=== PATIENT | female | born 1935 | race Caucasian/White ===

== ENCOUNTER 2021-01-04 17:31 | Inpatient (IN) | payer MEDICARE ==
[~2021-01-04] VITALS: Ht 157.5 cm; Wt 50.9 kg
[2021-01-04 18:20] LABS: BASO % 1 % (0-3); EOS # 0.1 x10^3/uL (0.0-0.7); EOS % 2 % (0-3); HEMATOCRIT 29.3 % (36.0-47.0); LYMPH # 0.7 x10^3/uL (1.0-4.8); LYMPH % 8 % (24-48); MEAN CORPUSCULAR HEMOGLOBIN 33 pg (25-35); MEAN CORPUSCULAR HGB CONC 34 g/dL (31-37); MEAN CORPUSCULAR VOLUME 97 fL (79-100); MONO % 12 % (0-9); NEUT # 6.8 x10^3uL (1.8-7.7); NEUT % 78 % (31-73); PLATELET COUNT 277 x10^3/uL (140-400); RED BLOOD COUNT 3.01 x10^6/uL (3.50-5.40); RED CELL DISTRIBUTION WIDTH 15.6 % (11.5-14.5); WHITE BLOOD COUNT 8.7 x10^3/uL (4.0-11.0)
[2021-01-04 18:26] LABS: ALBUMIN 3.2 g/dL (3.4-5.0); ALBUMIN/GLOBULIN RATIO 0.8 (1.0-1.7); CALCIUM 9.2 mg/dL (8.5-10.1); CREATININE 0.8 mg/dL (0.6-1.0); MAGNESIUM 1.9 mg/dL (1.8-2.4); TOTAL BILIRUBIN 1.3 mg/dL (0.2-1.0); TOTAL PROTEIN 7.3 g/dL (6.4-8.2)
[2021-01-04 18:41] LABS: BACTERIA,URINE 0 /HPF (0-FEW); BILIRUBIN,URINE NEG (NEG); CLARITY,URINE CLEAR; COLOR,URINE AMBER; GLUCOSE,URINE NEG (NEG); NITRITE,URINE NEG (NEG); RBC,URINE 0 /HPF (0-2); SQUAMOUS EPITHELIAL CELL,UR FEW /LPF; WBC,URINE RARE /HPF (0-4)
[2021-01-04] MEDS ORDERED: POTASSIUM CHLORIDE 20 MEQ TABLET.ER. PO ONE (19:00)
--- NOTE | 2021-01-04 19:07 | EKG ---
[address] [address] Test Date: 2021-01-04 Test Time: 18:15:47 Pat Name: GILLES LAIRD Department: Room: Gender: F Sample Card Maker: : 1935 Requested By: GERDA ROGERS Order Number: [id number] Reading MD: Measurements Intervals Reading Rate: 79 P: [place]: QRS: 16 QRSD: 88 T: 17 QT: 338 QTc: 389 Interpretive Statements IRREGULAR RHYTHM, NO P-WAVE FOUND T ABNORMALITY IN ANTEROLATERAL LEADS ABNORMAL ECG RI6.02 No previous ECG available for comparison
--- NOTE | 2021-01-04 19:10 | RAD ---
CT HEAD AND MAXILLOFACIAL WO, CT CERVICAL SPINE WO dated 01/04/2021 6:02 PM. Comparison: None. Clinical Indication: Reason: JOHAN/PSYCH CLEARANCE WITH FACIAL TRAUMA/BRUISING / Spl. Instructions: / History: PAIN Technical factors: Contiguous 5 mm axial images of the head were obtained from the skullbase to the v ertex. No contrast was administered. In addition, 3 mm axial images of the cervical spine and maxillo facial bones were acquired with thin cut coronal and sagittal reconstructions. One or more of the following individualized dose reduction techniques were utilized for this examinat ion: 1. Automated exposure control 2. Adjustment of the mA and/or kV according to patient size 3. Use of iterative reconstruction technique Findings head: Ventricles and sulci are mildly prominent for age. No midline shift or mass effect. There is mild pat roland low density in the deep/subcortical periventricular white matter. No hemorrhage or extra-axial co llection. Posterior fossa and brainstem unremarkable. Small scalp hematoma the right frontal bone No apparent calvarial abnormality. IMPRESSION HEAD: 1. No evidence of acute intracranial hemorrhage or mass. 2. Mild chronic small vessel ischemic changes and atrophy. 3. Right frontal scalp hematoma with no evidence of underlying fracture. Findings maxillofacial: There is mild preseptal soft tissue swelling on the right. Globes are symmetric. No post septal edema . Orbital noel and maxillary noel are intact. No displaced fracture. The zygomatic arches and adore ble are intact. No nasal bone fracture. Mild mucosal thickening of the bilateral ethmoid air cells. Maxillary, sphenoid and frontal sinuses a re clear. Mastoid air cells and middle ears are clear. No significant soft tissue abnormality. IMPRESSION MAXILLOFACIAL: 1. Preseptal soft tissue swelling over the right orbit with no evidence of underlying displaced facia l fracture. 2. Mild sinus disease. Findings cervical spine: Images were acquired from the skull base to T2. There is slight anterolisthesis of C3 on C4 and C4 on C5. Sagittal alignment is otherwise anatomic. Vertebral body heights are maintained. No prevertebral soft tissue swelling. Posterior elements are intact. Mild to moderate endplate hypertrophic changes throughout. There is moderate to severe disc space fernanda rowing at C4-C5, C5-C6 and C6-C7. Moderate multilevel uncovertebral spurring and facet arthropathy. T here is mild central canal narrowing at C5-C6 with multilevel mild to moderate foraminal narrowing. N o apparent focal disc herniation. Visualized soft tissue structures are unremarkable. Limited images of lung apices are clear. There is mild emphysema. There calcifications of the bilateral carotid bifurcation. IMPRESSION CERVICAL SPINE: 1. No evidence of fracture or malalignment. 2. Moderate multilevel cervical spondylosis. Electronically signed by: Israel Lainez MD (01/04/2021 7:08 PM) STEPHEN
[2021-01-04] MEDS ORDERED: RISP0.253 PO (19:29)
[2021-01-04] MEDS ORDERED: MELA5TAB20 PO (19:29)
[2021-01-04] MEDS ORDERED: LORA-254 PO (19:29)
[2021-01-04] MEDS ORDERED: RISP0.5T24 PO (19:29)
[2021-01-04] MEDS ORDERED: POLY2500 PO (19:29)
[2021-01-04] MEDS ORDERED: METO50TA6 PO (19:29)
[2021-01-04] MEDS ORDERED: ATOR10TA PO (19:29)
[2021-01-04] MEDS ORDERED: ACET500T68 PO (19:29)
[2021-01-04] MEDS ORDERED: FURO40TA4 PO (19:29)
[2021-01-04] MEDS ORDERED: POTA20TA4 PO (19:29)
[2021-01-04] MEDS ORDERED: LORA2ORA8 PO (19:29)
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
[2021-01-04] MEDS ORDERED: MAG HYDROX/AL HYDROX/SIMETH 30 ML ORAL.SUSP PO PRN (22:45)
[2021-01-04] MEDS ORDERED: MAGNESIUM HYDROXIDE 2,400 MG/30 ML ORAL.SUSP. PO PRN (22:45)
[2021-01-04] MEDS ORDERED: METHYL SALICYLATE/MENTHOL TOPICAL OINTMENT 57GM TUBE. TP PRN (22:45)
[2021-01-04] MEDS ORDERED: ACETAMINOPHEN 500 MG TABLET PO PRN (23:00)
[2021-01-04] MEDS ORDERED: LORazepam INTENSOL 2 MG/ML BOTTLE PO PRN (23:00)
[2021-01-04 23:40] VITALS: BP 191/82
[2021-01-05 06:22] VITALS: BP 139/75
[2021-01-05 08:38] LABS: BASO # 0.1 x10^3/uL (0.0-0.2); BASO % 1 % (0-3); EOS # 0.4 x10^3/uL (0.0-0.7); EOS % 6 % (0-3); HEMATOCRIT 29.9 % (36.0-47.0); HEMOGLOBIN 10.2 g/dL (12.0-15.5); LYMPH # 0.6 x10^3/uL (1.0-4.8); LYMPH % 9 % (24-48); MEAN CORPUSCULAR HEMOGLOBIN 33 pg (25-35); MEAN CORPUSCULAR HGB CONC 34 g/dL (31-37); MEAN CORPUSCULAR VOLUME 98 fL (79-100); MONO % 15 % (0-9); NEUT # 4.6 x10^3uL (1.8-7.7); NEUT % 70 % (31-73); PLATELET COUNT 291 x10^3/uL (140-400); RED BLOOD COUNT 3.04 x10^6/uL (3.50-5.40); RED CELL DISTRIBUTION WIDTH 15.6 % (11.5-14.5); WHITE BLOOD COUNT 6.7 x10^3/uL (4.0-11.0)
[2021-01-05] MEDS: METOPROLOL TART IMMED RELEASE 50 MG TABLET PO SCH ×2 (08:40→20:03)
[2021-01-05] MEDS: POLYETHYLENE GLYCOL 3350 17 GM PACKET. PO SCH (08:40)
[2021-01-05] MEDS: FUROSEMIDE 40 MG TABLET PO SCH (08:40)
[2021-01-05] MEDS: POTASSIUM CHLORIDE 20 MEQ TABLET.ER. PO SCH ×2 (08:40→20:02)
[2021-01-05] MEDS: risperiDONE 0.25 MG TABLET. PO SCH (08:40)
[2021-01-05] MEDS: ACETAMINOPHEN 325 MG TABLET PO PRN (08:40)
[2021-01-05] MEDS ORDERED: POTASSIUM CHLORIDE 20 MEQ TABLET.ER. PO ONE (15:45)
[2021-01-05 15:57] VITALS: BP 133/70
[2021-01-05 17:06] LABS: ALBUMIN 3.2 g/dL (3.4-5.0); ALBUMIN/GLOBULIN RATIO 0.9 (1.0-1.7); CREATININE 0.7 mg/dL (0.6-1.0); GFR 79.3; TOTAL BILIRUBIN 1.3 mg/dL (0.2-1.0); TOTAL PROTEIN 6.8 g/dL (6.4-8.2)
[2021-01-05 17:07] LABS: POTASSIUM 3.4 mmol/L (3.5-5.1)
[2021-01-05 19:08] LABS: THYROXINE 6.9 ug/dL (4.5-12.0)
[2021-01-05] MEDS: MELATONIN 3 MG TABLET PO SCH (20:02)
[2021-01-05] MEDS: ATORVASTATIN CALCIUM 10 MG TABLET. PO SCH (20:02)
[2021-01-05] MEDS: risperiDONE 0.5 MG TABLET. PO SCH (20:02)
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
--- NOTE | 2021-01-05 22:05 | PDOC ---
Exam Note: Devang Note: Please also refer to the separate dictated note~for this date of service dictated separately.~Patient seen individually. Discussed the patient with Nursing staff reviewed the chart.~Reviewed interim history and current functioning. Reviewed vital signs,~Labs/ Radiology~and current medications noted below. Continue current treatment with the changes noted in the dictated addendum note Assessment: Vital Signs/I&O: Vital Signs Date Time Temp Pulse Resp B/P (MAP) Pulse Ox O2 Delivery O2 Flow Rate FiO2 01/05/21 20:03 65 133/70 01/05/21 15:57 97.4 16 94 01/04/21 23:40 Room Air I & O 01/04/21 01/04/21 01/05/21 15:00 23:00 07:00 Intake Total 0 ml Balance 0 ml Labs: Laboratory Tests Test 01/05/21 07:03 White Blood Count 6.7 x10^3/uL (4.0-11.0) Red Blood Count 3.04 x10^6/uL (3.50-5.40) L Hemoglobin 10.2 g/dL (12.0-15.5) L Hematocrit 29.9 % (36.0-47.0) L Mean Corpuscular Volume 98 fL (79-100) Mean Corpuscular Hemoglobin 33 pg (25-35) Mean Corpuscular Hemoglobin Concent 34 g/dL (31-37) Red Cell Distribution Width 15.6 % (11.5-14.5) H Platelet Count 291 x10^3/uL (140-400) Neutrophils (%) (Auto) 70 % (31-73) Lymphocytes (%) (Auto) 9 % (24-48) L Monocytes (%) (Auto) 15 % (0-9) H Eosinophils (%) (Auto) 6 % (0-3) H Basophils (%) (Auto) 1 % (0-3) Neutrophils # (Auto) 4.6 x10^3uL (1.8-7.7) Lymphocytes # (Auto) 0.6 x10^3/uL (1.0-4.8) L Monocytes # (Auto) 1.0 x10^3/uL (0.0-1.1) Eosinophils # (Auto) 0.4 x10^3/uL (0.0-0.7) Basophils # (Auto) 0.1 x10^3/uL (0.0-0.2) D-Dimer (Allyson) 1.74 mg/L (0.00-0.50) H Sodium Level 140 mmol/L (136-145) Potassium Level 3.4 mmol/L (3.5-5.1) L Chloride Level 102 mmol/L (98-107) Carbon Dioxide Level 27 mmol/L (21-32) Anion Gap 11 (6-14) Blood Urea Nitrogen 22 mg/dL (7-20) H Creatinine 0.7 mg/dL (0.6-1.0) Estimated GFR (Cockcroft-Gault) 79.3 BUN/Creatinine Ratio 31 (6-20) H Glucose Level 73 mg/dL (70-99) Calcium Level 9.0 mg/dL (8.5-10.1) Magnesium Level 2.0 mg/dL (1.8-2.4) Total Bilirubin 1.3 mg/dL (0.2-1.0) H Aspartate Amino Transferase (AST) 20 U/L (15-37) Alanine Aminotransferase (ALT) 29 U/L (14-59) Alkaline Phosphatase 57 U/L (46-116) Total Protein 6.8 g/dL (6.4-8.2) Albumin 3.2 g/dL (3.4-5.0) L Albumin/Globulin Ratio 0.9 (1.0-1.7) L Thyroxine (T4) 6.9 ug/dL (4.5-12.0) Total Triiodothyronine (TT3) 64 ng/dL (71-180) L Current Medications: Meds: Laboratory Tests Test 01/05/21 07:03 White Blood Count 6.7 x10^3/uL Red Blood Count 3.04 x10^6/uL Hemoglobin 10.2 g/dL Hematocrit 29.9 % Mean Corpuscular Volume 98 fL Mean Corpuscular Hemoglobin 33 pg Mean Corpuscular Hemoglobin Concent 34 g/dL Red Cell Distribution Width 15.6 % Platelet Count 291 x10^3/uL Neutrophils (%) (Auto) 70 % Lymphocytes (%) (Auto) 9 % Monocytes (%) (Auto) 15 % Eosinophils (%) (Auto) 6 % Basophils (%) (Auto) 1 % Neutrophils # (Auto) 4.6 x10^3uL Lymphocytes # (Auto) 0.6 x10^3/uL Monocytes # (Auto) 1.0 x10^3/uL Eosinophils # (Auto) 0.4 x10^3/uL Basophils # (Auto) 0.1 x10^3/uL D-Dimer (Allyson) 1.74 mg/L Sodium Level 140 mmol/L Potassium Level 3.4 mmol/L Chloride Level 102 mmol/L Carbon Dioxide Level 27 mmol/L Anion Gap 11 Blood Urea Nitrogen 22 mg/dL Creatinine 0.7 mg/dL Estimated GFR (Cockcroft-Gault) 79.3 BUN/Creatinine Ratio 31 Glucose Level 73 mg/dL Calcium Level 9.0 mg/dL Magnesium Level 2.0 mg/dL Total Bilirubin 1.3 mg/dL Aspartate Amino Transf (AST/SGOT) 20 U/L Alanine Aminotransferase (ALT/SGPT) 29 U/L Alkaline Phosphatase 57 U/L Total Protein 6.8 g/dL Albumin 3.2 g/dL Albumin/Globulin Ratio 0.9 Thyroxine (T4) 6.9 ug/dL Total Triiodothyronine 64 ng/dL Current Medications Medications (Trade) Dose Ordered Sig/Marguerite Route PRN Reason Start Time Stop Time Status Last Admin Dose Admin Potassium Chloride (Klor-Con) 40 meq 1X ONCE PO 01/04/21 19:00 01/04/21 19:07 DC 01/04/21 19:16 Acetaminophen (Tylenol) 500 mg PRN Q12HR PRN PO PAIN 01/04/21 23:00 Cancel Atorvastatin Calcium (Lipitor) 10 mg QHS PO 01/05/21 21:00 01/05/21 20:02 Furosemide (Lasix) 40 mg DAILY PO 01/05/21 09:00 01/05/21 08:40 Metoprolol Tartrate (Lopressor) 50 mg BID PO 01/05/21 09:00 01/05/21 20:03 Potassium Chloride (Klor-Con) 20 meq DAILY PO 01/05/21 09:00 01/05/21 08:40 Polyethylene Glycol (miraLAX) 17 gm DAILY PO 01/05/21 09:00 01/05/21 08:40 Lorazepam (Ativan) 1 mg PRN Q4HRS PRN PO ANXIETY / AGITATION 01/04/21 23:00 Lorazepam (Ativan Intensol) 1 mg PRN Q6HRS PRN PO ANXIETY / AGITATION 01/04/21 23:00 Risperidone (RisperDAL) 0.25 mg DAILY PO 01/05/21 09:00 01/05/21 08:40 Risperidone (RisperDAL) 0.5 mg QHS PO 01/05/21 21:00 01/05/21 20:02 Melatonin (Melatonin) 6 mg HS PO 01/05/21 21:00 01/05/21 20:02 Acetaminophen (Tylenol) 650 mg PRN Q6HRS PRN PO MILD PAIN / TEMP > 100.3'F 01/04/21 22:45 01/05/21 08:40 Multi-Ingredient Ointment (Analgesic [place]) 1 abby PRN QID PRN TP MUSCLE PAIN 01/04/21 22:45 Al Hydroxide/Mg Hydroxide (Mylanta Plus Xs) 15 ml PRN AFTMEALHC PRN PO DYSPEPSIA 01/04/21 22:45 Magnesium Hydroxide (Milk Of Magnesia) 2,400 mg PRN QHS PRN PO CONSTIPATION 01/04/21 22:45 Potassium Chloride (Klor-Con) 40 meq 1X ONCE PO 01/05/21 15:45 01/05/21 15:49 DC 01/05/21 17:29 Potassium Chloride (Klor-Con) 20 meq BID PO 01/05/21 21:00 01/05/21 20:02 Current Medications Medications (Trade) Dose Ordered Sig/Marguerite Route PRN Reason Start Time Stop Time Status Last Admin Dose Admin Atorvastatin Calcium (Lipitor) 10 mg QHS PO 01/05/21 21:00 01/05/21 20:02 Furosemide (Lasix) 40 mg DAILY PO 01/05/21 09:00 01/05/21 08:40 Metoprolol Tartrate (Lopressor) 50 mg BID PO 01/05/21 09:00 01/05/21 20:03 Potassium Chloride (Klor-Con) 20 meq DAILY PO 01/05/21 09:00 01/05/21 08:40 Polyethylene Glycol (miraLAX) 17 gm DAILY PO 01/05/21 09:00 01/05/21 08:40 Risperidone (RisperDAL) 0.25 mg DAILY PO 01/05/21 09:00 01/05/21 08:40 Risperidone (RisperDAL) 0.5 mg QHS PO 01/05/21 21:00 01/05/21 20:02 Melatonin (Melatonin) 6 mg HS PO 01/05/21 21:00 01/05/21 20:02 Acetaminophen (Tylenol) 650 mg PRN Q6HRS PRN PO MILD PAIN / TEMP > 100.3'F 01/04/21 22:45 01/05/21 08:40 Potassium Chloride (Klor-Con) 40 meq 1X ONCE PO 01/05/21 15:45 01/05/21 15:49 DC 01/05/21 17:29 Potassium Chloride (Klor-Con) 20 meq BID PO 01/05/21 21:00 01/05/21 20:02 I have reviewed the current psychotropics carefully including drug interactions. Risk benefit ratio favors no change other than as noted in my dictated progress note. Diagnosis: Problems: (1) Major neurocognitive disorder (2) Dementia in Alzheimer's disease with delusions (3) Dementia in Alzheimer's disease with depression (4) Dementia of the Alzheimer's type with early onset with behavioral disturbance (5) Medical clearance for psychiatric admission OFE MONTENEGRO MD Jan 05, 2021 22:05
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
[2021-01-06 00:07] LABS: HEMOGLOBIN A1C 5.3 % (4.8-5.6)
[2021-01-06 05:53] VITALS: BP 163/72
[2021-01-06] MEDS: FUROSEMIDE 40 MG TABLET PO SCH (08:55)
[2021-01-06] MEDS: METOPROLOL TART IMMED RELEASE 50 MG TABLET PO SCH ×2 (08:55→20:20)
[2021-01-06] MEDS: POTASSIUM CHLORIDE 20 MEQ TABLET.ER. PO SCH ×3 (08:55→20:20)
[2021-01-06] MEDS: risperiDONE 0.25 MG TABLET. PO SCH (08:55)
[2021-01-06] MEDS: POLYETHYLENE GLYCOL 3350 17 GM PACKET. PO SCH (09:00)
[2021-01-06 16:02] VITALS: BP 102/64
[2021-01-06] MEDS: MELATONIN 3 MG TABLET PO SCH (20:20)
[2021-01-06] MEDS: ATORVASTATIN CALCIUM 10 MG TABLET. PO SCH (20:20)
[2021-01-06] MEDS: risperiDONE 0.5 MG TABLET. PO SCH (20:20)
--- NOTE | 2021-01-06 21:58 | PDOC ---
Exam Note: Devang Note: Please also refer to the separate dictated note~for this date of service dictated separately.~Patient seen individually. Discussed the patient with Nursing staff reviewed the chart.~Reviewed interim history and current functioning. Reviewed vital signs,~Labs/ Radiology~and current medications noted below. Continue current treatment with the changes noted in the dictated addendum note Assessment: Vital Signs/I&O: Vital Signs Date Time Temp Pulse Resp B/P (MAP) Pulse Ox O2 Delivery O2 Flow Rate FiO2 01/06/21 20:20 74 102/64 01/06/21 16:02 97.8 20 96 01/04/21 23:40 Room Air I & O 01/05/21 01/05/21 01/06/21 15:00 23:00 07:00 Intake Total 480 ml 360 ml 120 ml Balance 480 ml 360 ml 120 ml Current Medications: Meds: Current Medications Medications (Trade) Dose Ordered Sig/Marguerite Route PRN Reason Start Time Stop Time Status Last Admin Dose Admin Potassium Chloride (Klor-Con) 40 meq 1X ONCE PO 01/04/21 19:00 01/04/21 19:07 DC 01/04/21 19:16 Acetaminophen (Tylenol) 500 mg PRN Q12HR PRN PO PAIN 01/04/21 23:00 Cancel Atorvastatin Calcium (Lipitor) 10 mg QHS PO 01/05/21 21:00 01/06/21 20:20 Furosemide (Lasix) 40 mg DAILY PO 01/05/21 09:00 01/06/21 08:55 Metoprolol Tartrate (Lopressor) 50 mg BID PO 01/05/21 09:00 01/06/21 20:20 Potassium Chloride (Klor-Con) 20 meq DAILY PO 01/05/21 09:00 01/06/21 08:55 Polyethylene Glycol (miraLAX) 17 gm DAILY PO 01/05/21 09:00 01/06/21 09:00 Lorazepam (Ativan) 1 mg PRN Q4HRS PRN PO ANXIETY / AGITATION 01/04/21 23:00 Lorazepam (Ativan Intensol) 1 mg PRN Q6HRS PRN PO ANXIETY / AGITATION 01/04/21 23:00 Risperidone (RisperDAL) 0.25 mg DAILY PO 01/05/21 09:00 01/06/21 08:55 Risperidone (RisperDAL) 0.5 mg QHS PO 01/05/21 21:00 01/06/21 20:20 Melatonin (Melatonin) 6 mg HS PO 01/05/21 21:00 01/06/21 20:20 Acetaminophen (Tylenol) 650 mg PRN Q6HRS PRN PO MILD PAIN / TEMP > 100.3'F 01/04/21 22:45 01/05/21 08:40 Multi-Ingredient Ointment (Analgesic [place]) 1 abby PRN QID PRN TP MUSCLE PAIN 01/04/21 22:45 Al Hydroxide/Mg Hydroxide (Mylanta Plus Xs) 15 ml PRN AFTMEALHC PRN PO DYSPEPSIA 01/04/21 22:45 Magnesium Hydroxide (Milk Of Magnesia) 2,400 mg PRN QHS PRN PO CONSTIPATION 01/04/21 22:45 Potassium Chloride (Klor-Con) 40 meq 1X ONCE PO 01/05/21 15:45 01/05/21 15:49 DC 01/05/21 17:29 Potassium Chloride (Klor-Con) 20 meq BID PO 01/05/21 21:00 01/06/21 20:20 Sertraline HCl (Zoloft) 25 mg DAILY PO 01/07/21 09:00 01/09/21 18:00 Sertraline HCl (Zoloft) 50 mg DAILY PO 01/10/21 09:00 I have reviewed the current psychotropics carefully including drug interactions. Risk benefit ratio favors no change other than as noted in my dictated progress note. Diagnosis: Problems: (1) Dementia in Alzheimer's disease with depression (2) Dementia in Alzheimer's disease with delusions (3) Dementia of the Alzheimer's type with early onset with behavioral disturbance (4) Major neurocognitive disorder OFE MONTENEGRO MD Jan 06, 2021 21:58
[2021-01-07] MEDS: LORazepam 1 MG TABLET PO PRN ×2 (02:35→23:07)
[2021-01-07 05:57] VITALS: BP 139/65
--- NOTE | 2021-01-07 07:01 | PDOC ---
Exam Note: Devang Note: This note is a late entry for 01/06/2021 covers elements not covered in my initial note. Subjective: The patient was seen individually in the evening of 01/06/2021 with Zena MARIANO, discussed and reviewed the chart. The patient slept 7 hours previous night. She is resistive with medications, confused, anxious. The patient is quite intrusive with another demented patient. Review of Systems: Ambulation impaired in wheelchair. No CV, , pulmonary, eye system symptoms on review. Mental Status Exam: The patient is oriented to herself. Insight and judgment, recent and remote memory, attention and concentration is poor consistent with her diagnoses. Laboratory Data: Reviewed. Impression: Major neurocognitive disorder Alzheimer vascular with delusion, depression, and behavioral disturbance. Anxiety disorder unspecified. Impulse control disorder unspecified. Plan: Start Zoloft 25 mg a day. Increase to 50 mg a day in 3 days. Maintain rest of the psychotropics from initial note. Assessment: Vital Signs/I&O: Vital Signs Date Time Temp Pulse Resp B/P (MAP) Pulse Ox O2 Delivery O2 Flow Rate FiO2 01/07/21 05:57 97.5 66 16 139/65 (89) 95 01/04/21 23:40 Room Air I & O 01/06/21 01/06/21 01/07/21 15:00 23:00 07:00 Intake Total 1260 ml 240 ml 240 ml Balance 1260 ml 240 ml 240 ml Current Medications: Meds: Current Medications Medications (Trade) Dose Ordered Sig/Marguerite Route PRN Reason Start Time Stop Time Status Last Admin Dose Admin Potassium Chloride (Klor-Con) 40 meq 1X ONCE PO 01/04/21 19:00 01/04/21 19:07 DC 01/04/21 19:16 Acetaminophen (Tylenol) 500 mg PRN Q12HR PRN PO PAIN 01/04/21 23:00 Cancel Atorvastatin Calcium (Lipitor) 10 mg QHS PO 01/05/21 21:00 01/06/21 20:20 Furosemide (Lasix) 40 mg DAILY PO 01/05/21 09:00 01/06/21 08:55 Metoprolol Tartrate (Lopressor) 50 mg BID PO 01/05/21 09:00 01/06/21 20:20 Potassium Chloride (Klor-Con) 20 meq DAILY PO 01/05/21 09:00 01/06/21 08:55 Polyethylene Glycol (miraLAX) 17 gm DAILY PO 01/05/21 09:00 01/06/21 09:00 Lorazepam (Ativan) 1 mg PRN Q4HRS PRN PO ANXIETY / AGITATION 01/04/21 23:00 01/07/21 02:35 Lorazepam (Ativan Intensol) 1 mg PRN Q6HRS PRN PO ANXIETY / AGITATION 01/04/21 23:00 Risperidone (RisperDAL) 0.25 mg DAILY PO 01/05/21 09:00 01/06/21 08:55 Risperidone (RisperDAL) 0.5 mg QHS PO 01/05/21 21:00 01/06/21 20:20 Melatonin (Melatonin) 6 mg HS PO 01/05/21 21:00 01/06/21 20:20 Acetaminophen (Tylenol) 650 mg PRN Q6HRS PRN PO MILD PAIN / TEMP > 100.3'F 01/04/21 22:45 01/05/21 08:40 Multi-Ingredient Ointment (Analgesic [place]) 1 abby PRN QID PRN TP MUSCLE PAIN 01/04/21 22:45 Al Hydroxide/Mg Hydroxide (Mylanta Plus Xs) 15 ml PRN AFTMEALHC PRN PO DYSPEPSIA 01/04/21 22:45 Magnesium Hydroxide (Milk Of Magnesia) 2,400 mg PRN QHS PRN PO CONSTIPATION 01/04/21 22:45 Potassium Chloride (Klor-Con) 40 meq 1X ONCE PO 01/05/21 15:45 01/05/21 15:49 DC 01/05/21 17:29 Potassium Chloride (Klor-Con) 20 meq BID PO 01/05/21 21:00 01/06/21 20:20 Sertraline HCl (Zoloft) 25 mg DAILY PO 01/07/21 09:00 01/09/21 18:00 Sertraline HCl (Zoloft) 50 mg DAILY PO 01/10/21 09:00 I have reviewed the current psychotropics carefully including drug interactions. Risk benefit ratio favors no change other than as noted in my dictated progress note. Diagnosis: Problems: (1) Dementia in Alzheimer's disease with depression (2) Dementia in Alzheimer's disease with delusions (3) Dementia of the Alzheimer's type with early onset with behavioral disturbance (4) Major neurocognitive disorder OFE MONTENEGRO MD Jan 07, 2021 07:01
[2021-01-07] MEDS: POTASSIUM CHLORIDE 20 MEQ TABLET.ER. PO SCH ×3 (08:07→20:28)
[2021-01-07] MEDS: risperiDONE 0.25 MG TABLET. PO SCH (08:07)
[2021-01-07] MEDS: METOPROLOL TART IMMED RELEASE 50 MG TABLET PO SCH ×2 (08:07→20:15)
[2021-01-07] MEDS: SERTRALINE 25 MG TABLET. PO SCH (08:07)
[2021-01-07] MEDS: POLYETHYLENE GLYCOL 3350 17 GM PACKET. PO SCH (08:08)
[2021-01-07] MEDS: FUROSEMIDE 40 MG TABLET PO SCH (08:08)
[2021-01-07 16:17] VITALS: BP 100/69
[2021-01-07] MEDS: MELATONIN 3 MG TABLET PO SCH (20:28)
[2021-01-07] MEDS: risperiDONE 0.5 MG TABLET. PO SCH (20:28)
[2021-01-07] MEDS: ATORVASTATIN CALCIUM 10 MG TABLET. PO SCH (20:28)
--- NOTE | 2021-01-07 22:09 | PDOC ---
Exam Note: Devang Note: Please also refer to the separate dictated note~for this date of service dictated separately.~Patient seen individually. Discussed the patient with Nursing staff reviewed the chart.~Reviewed interim history and current functioning. Reviewed vital signs,~Labs/ Radiology~and current medications noted below. Continue current treatment with the changes noted in the dictated addendum note Assessment: Vital Signs/I&O: Vital Signs Date Time Temp Pulse Resp B/P (MAP) Pulse Ox O2 Delivery O2 Flow Rate FiO2 01/07/21 20:15 60 100/69 01/07/21 16:17 97.8 18 97 Room Air I & O 01/06/21 01/06/21 01/07/21 15:00 23:00 07:00 Intake Total 1260 ml 240 ml 240 ml Balance 1260 ml 240 ml 240 ml Current Medications: Meds: Current Medications Medications (Trade) Dose Ordered Sig/Marguerite Route PRN Reason Start Time Stop Time Status Last Admin Dose Admin Potassium Chloride (Klor-Con) 40 meq 1X ONCE PO 01/04/21 19:00 01/04/21 19:07 DC 01/04/21 19:16 Acetaminophen (Tylenol) 500 mg PRN Q12HR PRN PO PAIN 01/04/21 23:00 Cancel Atorvastatin Calcium (Lipitor) 10 mg QHS PO 01/05/21 21:00 01/07/21 20:28 Furosemide (Lasix) 40 mg DAILY PO 01/05/21 09:00 01/07/21 08:08 Metoprolol Tartrate (Lopressor) 50 mg BID PO 01/05/21 09:00 01/07/21 08:07 Potassium Chloride (Klor-Con) 20 meq DAILY PO 01/05/21 09:00 01/07/21 08:07 Polyethylene Glycol (miraLAX) 17 gm DAILY PO 01/05/21 09:00 01/07/21 08:08 Lorazepam (Ativan) 1 mg PRN Q4HRS PRN PO ANXIETY / AGITATION 01/04/21 23:00 01/07/21 02:35 Lorazepam (Ativan Intensol) 1 mg PRN Q6HRS PRN PO ANXIETY / AGITATION 01/04/21 23:00 Risperidone (RisperDAL) 0.25 mg DAILY PO 01/05/21 09:00 01/07/21 08:07 Risperidone (RisperDAL) 0.5 mg QHS PO 01/05/21 21:00 01/07/21 20:28 Melatonin (Melatonin) 6 mg HS PO 01/05/21 21:00 01/07/21 20:28 Acetaminophen (Tylenol) 650 mg PRN Q6HRS PRN PO MILD PAIN / TEMP > 100.3'F 01/04/21 22:45 01/05/21 08:40 Multi-Ingredient Ointment (Analgesic [place]) 1 abby PRN QID PRN TP MUSCLE PAIN 01/04/21 22:45 Al Hydroxide/Mg Hydroxide (Mylanta Plus Xs) 15 ml PRN AFTMEALHC PRN PO DYSPEPSIA 01/04/21 22:45 Magnesium Hydroxide (Milk Of Magnesia) 2,400 mg PRN QHS PRN PO CONSTIPATION 01/04/21 22:45 Potassium Chloride (Klor-Con) 40 meq 1X ONCE PO 01/05/21 15:45 01/05/21 15:49 DC 01/05/21 17:29 Potassium Chloride (Klor-Con) 20 meq BID PO 01/05/21 21:00 01/07/21 20:28 Sertraline HCl (Zoloft) 25 mg DAILY PO 01/07/21 09:00 01/09/21 18:00 01/07/21 08:07 Sertraline HCl (Zoloft) 50 mg DAILY PO 01/10/21 09:00 Current Medications Medications (Trade) Dose Ordered Sig/Marguerite Route PRN Reason Start Time Stop Time Status Last Admin Dose Admin Sertraline HCl (Zoloft) 25 mg DAILY PO 01/07/21 09:00 01/09/21 18:00 01/07/21 08:07 I have reviewed the current psychotropics carefully including drug interactions. Risk benefit ratio favors no change other than as noted in my dictated progress note. Diagnosis: Problems: (1) Dementia in Alzheimer's disease with depression (2) Dementia in Alzheimer's disease with delusions (3) Dementia of the Alzheimer's type with early onset with behavioral disturbance (4) Major neurocognitive disorder (5) Dementia, vascular, with delusions (6) Dementia, vascular, with depression (7) Anxiety disorder, unspecified (8) Impulse control disorder, unspecified OFE MONTENEGRO MD Jan 07, 2021 22:09
[2021-01-08 05:51] VITALS: BP 126/71
[2021-01-08] MEDS: POTASSIUM CHLORIDE 20 MEQ TABLET.ER. PO SCH ×3 (09:00→19:56)
[2021-01-08] MEDS: POLYETHYLENE GLYCOL 3350 17 GM PACKET. PO SCH (10:40)
[2021-01-08] MEDS: METOPROLOL TART IMMED RELEASE 50 MG TABLET PO SCH ×2 (10:41→20:04)
[2021-01-08] MEDS: FUROSEMIDE 40 MG TABLET PO SCH (10:41)
[2021-01-08] MEDS: SERTRALINE 25 MG TABLET. PO SCH (10:41)
[2021-01-08] MEDS: risperiDONE 0.25 MG TABLET. PO SCH ×2 (10:41→20:13)
[2021-01-08 16:33] VITALS: BP 122/71
[2021-01-08] MEDS: traZODone 50 MG TABLET. PO PRN (19:56)
[2021-01-08] MEDS: ATORVASTATIN CALCIUM 10 MG TABLET. PO SCH (19:56)
[2021-01-08] MEDS: MELATONIN 3 MG TABLET PO SCH (19:56)
[2021-01-08] MEDS ORDERED: risperiDONE 0.25 MG TABLET. PO SCH ×2 (20:00→21:00)
[2021-01-08] MEDS ORDERED: risperiDONE 1 MG TABLET. PO SCH (21:00)
--- NOTE | 2021-01-08 22:03 | PDOC ---
Exam Note: Devang Note: Please also refer to the separate dictated note~for this date of service dictated separately.~Patient seen individually. Discussed the patient with Nursing staff reviewed the chart.~Reviewed interim history and current functioning. Reviewed vital signs,~Labs/ Radiology~and current medications noted below. Continue current treatment with the changes noted in the dictated addendum note Assessment: Vital Signs/I&O: Vital Signs Date Time Temp Pulse Resp B/P (MAP) Pulse Ox O2 Delivery O2 Flow Rate FiO2 01/08/21 20:04 75 122/71 01/08/21 16:33 98.0 18 94 Room Air I & O 01/07/21 01/07/21 01/08/21 15:00 23:00 07:00 Intake Total 600 ml 480 ml Balance 600 ml 480 ml Current Medications: Meds: Current Medications Medications (Trade) Dose Ordered Sig/Marguerite Route PRN Reason Start Time Stop Time Status Last Admin Dose Admin Potassium Chloride (Klor-Con) 40 meq 1X ONCE PO 01/04/21 19:00 01/04/21 19:07 DC 01/04/21 19:16 Acetaminophen (Tylenol) 500 mg PRN Q12HR PRN PO PAIN 01/04/21 23:00 Cancel Atorvastatin Calcium (Lipitor) 10 mg QHS PO 01/05/21 21:00 01/08/21 19:56 Furosemide (Lasix) 40 mg DAILY PO 01/05/21 09:00 01/08/21 10:41 Metoprolol Tartrate (Lopressor) 50 mg BID PO 01/05/21 09:00 01/08/21 20:04 Potassium Chloride (Klor-Con) 20 meq DAILY PO 01/05/21 09:00 01/08/21 10:40 Polyethylene Glycol (miraLAX) 17 gm DAILY PO 01/05/21 09:00 01/08/21 10:40 Lorazepam (Ativan) 1 mg PRN Q4HRS PRN PO ANXIETY / AGITATION 01/04/21 23:00 01/07/21 23:07 Lorazepam (Ativan Intensol) 1 mg PRN Q6HRS PRN PO ANXIETY / AGITATION 01/04/21 23:00 Risperidone (RisperDAL) 0.25 mg DAILY PO 01/05/21 09:00 01/08/21 10:41 Risperidone (RisperDAL) 0.5 mg QHS PO 01/05/21 21:00 01/08/21 17:27 DC 01/07/21 20:28 Melatonin (Melatonin) 6 mg HS PO 01/05/21 21:00 01/08/21 17:27 DC 01/07/21 20:28 Acetaminophen (Tylenol) 650 mg PRN Q6HRS PRN PO MILD PAIN / TEMP > 100.3'F 01/04/21 22:45 01/05/21 08:40 Multi-Ingredient Ointment (Analgesic [place]) 1 abby PRN QID PRN TP MUSCLE PAIN 01/04/21 22:45 Al Hydroxide/Mg Hydroxide (Mylanta Plus Xs) 15 ml PRN AFTMEALHC PRN PO DYSPEPSIA 01/04/21 22:45 Magnesium Hydroxide (Milk Of Magnesia) 2,400 mg PRN QHS PRN PO CONSTIPATION 01/04/21 22:45 Potassium Chloride (Klor-Con) 40 meq 1X ONCE PO 01/05/21 15:45 01/05/21 15:49 DC 01/05/21 17:29 Potassium Chloride (Klor-Con) 20 meq BID PO 01/05/21 21:00 01/08/21 19:56 Sertraline HCl (Zoloft) 25 mg DAILY PO 01/07/21 09:00 01/09/21 18:00 01/08/21 10:41 Sertraline HCl (Zoloft) 50 mg DAILY PO 01/10/21 09:00 Melatonin (Melatonin) 3 mg HS PO 01/08/21 21:00 01/08/21 19:56 Trazodone HCl (Desyrel) 50 mg PRN QHS PRN PO INSOMNIA MRX1 01/08/21 17:30 01/08/21 19:56 Risperidone (RisperDAL) 1 mg QHS PO 01/08/21 21:00 01/08/21 19:47 DC Olanzapine (ZyPREXA ZYDIS) 2.5 mg PRN Q2HRS PRN PO PSYCHOSIS 01/08/21 19:45 Risperidone (RisperDAL) 0.5 mg HS PO 01/08/21 21:00 01/08/21 19:58 DC Risperidone (RisperDAL) 0.25 mg HS PO 01/08/21 20:00 01/08/21 20:01 DC Risperidone (RisperDAL) 0.25 mg HS PO 01/08/21 21:00 01/08/21 20:13 Current Medications Medications (Trade) Dose Ordered Sig/Marguerite Route PRN Reason Start Time Stop Time Status Last Admin Dose Admin Melatonin (Melatonin) 3 mg HS PO 01/08/21 21:00 01/08/21 19:56 Trazodone HCl (Desyrel) 50 mg PRN QHS PRN PO INSOMNIA MRX1 01/08/21 17:30 01/08/21 19:56 Risperidone (RisperDAL) 0.25 mg HS PO 01/08/21 21:00 01/08/21 20:13 I have reviewed the current psychotropics carefully including drug interactions. Risk benefit ratio favors no change other than as noted in my dictated progress note. 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
[2021-01-09 06:07] VITALS: BP 166/69
--- NOTE | 2021-01-09 07:23 | PDOC ---
Exam Note: Devang Note: This note is a late entry for 01/07/2021 covers elements not covered in my initial note. Subjective: The patient was reviewed in the morning of 01/07/2021 for a treatment team meeting with Karli Villegas, Alejandra Pena (delinquency prevention social worker), Judith, activity therapy and Hyun MARIANO discussed and reviewed the chart. The patient slept 6 hours previous night. Her son Emiliano attended the treatment team meeting. She has advanced herself from a wheelchair to a walker. 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 She was paranoid in the morning, wanting to be fed not wanting to do that herself. Her son expressed concern about toes with fungal growth and we will defer to Dr. Brown/Dr. Vergara. Review of Systems: Ambulation impaired in wheelchair. No CV, , pulmonary, eye system symptoms on review. Mental Status Exam: The patient is oriented to herself. Insight and judgment, recent and remote memory, attention and concentration is poor consistent with her diagnoses. Laboratory Data: Reviewed. Impression: Major neurocognitive disorder Alzheimer vascular with delusion, depression, and behavioral disturbance. Anxiety disorder unspecified. Impulse control disorder unspecified. Plan: Continue current psychotropics. She has received p.r.n. x2 for agitation but does redirect. We will make further adjustments as clinically indicated. Assessment: Vital Signs/I&O: Vital Signs Date Time Temp Pulse Resp B/P (MAP) Pulse Ox O2 Delivery O2 Flow Rate FiO2 01/09/21 06:07 97.4 61 18 166/69 (101) 98 Room Air I & O 01/08/21 01/08/21 01/09/21 15:00 23:00 07:00 Intake Total 360 ml 720 ml Balance 360 ml 720 ml Current Medications: Meds: Current Medications Medications (Trade) Dose Ordered Sig/Marguerite Route PRN Reason Start Time Stop Time Status Last Admin Dose Admin Potassium Chloride (Klor-Con) 40 meq 1X ONCE PO 01/04/21 19:00 01/04/21 19:07 DC 01/04/21 19:16 Acetaminophen (Tylenol) 500 mg PRN Q12HR PRN PO PAIN 01/04/21 23:00 Cancel Atorvastatin Calcium (Lipitor) 10 mg QHS PO 01/05/21 21:00 01/08/21 19:56 Furosemide (Lasix) 40 mg DAILY PO 01/05/21 09:00 01/08/21 10:41 Metoprolol Tartrate (Lopressor) 50 mg BID PO 01/05/21 09:00 01/08/21 20:04 Potassium Chloride (Klor-Con) 20 meq DAILY PO 01/05/21 09:00 01/08/21 10:40 Polyethylene Glycol (miraLAX) 17 gm DAILY PO 01/05/21 09:00 01/08/21 10:40 Lorazepam (Ativan) 1 mg PRN Q4HRS PRN PO ANXIETY / AGITATION 01/04/21 23:00 01/07/21 23:07 Lorazepam (Ativan Intensol) 1 mg PRN Q6HRS PRN PO ANXIETY / AGITATION 01/04/21 23:00 Risperidone (RisperDAL) 0.25 mg DAILY PO 01/05/21 09:00 01/08/21 10:41 Risperidone (RisperDAL) 0.5 mg QHS PO 01/05/21 21:00 01/08/21 17:27 DC 01/07/21 20:28 Melatonin (Melatonin) 6 mg HS PO 01/05/21 21:00 01/08/21 17:27 DC 01/07/21 20:28 Acetaminophen (Tylenol) 650 mg PRN Q6HRS PRN PO MILD PAIN / TEMP > 100.3'F 01/04/21 22:45 01/05/21 08:40 Multi-Ingredient Ointment (Analgesic [place]) 1 abby PRN QID PRN TP MUSCLE PAIN 01/04/21 22:45 Al Hydroxide/Mg Hydroxide (Mylanta Plus Xs) 15 ml PRN AFTMEALHC PRN PO DYSPEPSIA 01/04/21 22:45 Magnesium Hydroxide (Milk Of Magnesia) 2,400 mg PRN QHS PRN PO CONSTIPATION 01/04/21 22:45 Potassium Chloride (Klor-Con) 40 meq 1X ONCE PO 01/05/21 15:45 01/05/21 15:49 DC 01/05/21 17:29 Potassium Chloride (Klor-Con) 20 meq BID PO 01/05/21 21:00 01/08/21 19:56 Sertraline HCl (Zoloft) 25 mg DAILY PO 01/07/21 09:00 01/09/21 18:00 01/08/21 10:41 Sertraline HCl (Zoloft) 50 mg DAILY PO 01/10/21 09:00 Melatonin (Melatonin) 3 mg HS PO 01/08/21 21:00 01/08/21 19:56 Trazodone HCl (Desyrel) 50 mg PRN QHS PRN PO INSOMNIA MRX1 01/08/21 17:30 01/08/21 19:56 Risperidone (RisperDAL) 1 mg QHS PO 01/08/21 21:00 01/08/21 19:47 DC Olanzapine (ZyPREXA ZYDIS) 2.5 mg PRN Q2HRS PRN PO PSYCHOSIS 01/08/21 19:45 Risperidone (RisperDAL) 0.5 mg HS PO 01/08/21 21:00 01/08/21 19:58 DC Risperidone (RisperDAL) 0.25 mg HS PO 01/08/21 20:00 01/08/21 20:01 DC Risperidone (RisperDAL) 0.25 mg HS PO 01/08/21 21:00 01/08/21 20:13 Current Medications Medications (Trade) Dose Ordered Sig/Marguerite Route PRN Reason Start Time Stop Time Status Last Admin Dose Admin Melatonin (Melatonin) 3 mg HS PO 01/08/21 21:00 01/08/21 19:56 Trazodone HCl (Desyrel) 50 mg PRN QHS PRN PO INSOMNIA MRX1 01/08/21 17:30 01/08/21 19:56 Risperidone (RisperDAL) 0.25 mg HS PO 01/08/21 21:00 01/08/21 20:13 I have reviewed the current psychotropics carefully including drug interactions. Risk benefit ratio favors no change other than as noted in my dictated progress note. 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
--- NOTE | 2021-01-09 07:38 | PDOC ---
Exam Note: Devang Note: This note is a late entry for 01/08/2021 covers elements not covered in my initial note. Subjective: The patient was seen individually in the evening of 01/08/2021 with Kaylee MARIANO, discussed and reviewed the chart. The patient slept 4 hours previous night. She remains confused, anxious, restless. Review of Systems: Ambulation impaired in wheelchair. No CV, , pulmonary, eye system symptoms on review. Reliability poor. Mental Status Exam: The patient is oriented to herself. Insight and judgment, recent and remote memory, attention and concentration is poor consistent with her diagnoses. Laboratory Data: Reviewed. Impression: Major neurocognitive disorder Alzheimer vascular with delusion, depression, and behavioral disturbance. Anxiety disorder unspecified. Impulse control disorder unspecified. Plan: Continue current psychotropics. Reduce melatonin from 6 mg h.s. to 3 mg h.s. Start trazodone 50 mg h.s. p.r.n., may repeat x1. Reduce h.s. Risperdal from 0.5 mg down to 0.25 mg. Continue a.m. Risperdal 0.25 mg. Assessment: Vital Signs/I&O: Vital Signs Date Time Temp Pulse Resp B/P (MAP) Pulse Ox O2 Delivery O2 Flow Rate FiO2 01/09/21 06:07 97.4 61 18 166/69 (101) 98 Room Air I & O 01/08/21 01/08/21 01/09/21 15:00 23:00 07:00 Intake Total 360 ml 720 ml Balance 360 ml 720 ml Current Medications: Meds: Current Medications Medications (Trade) Dose Ordered Sig/Marguerite Route PRN Reason Start Time Stop Time Status Last Admin Dose Admin Potassium Chloride (Klor-Con) 40 meq 1X ONCE PO 01/04/21 19:00 01/04/21 19:07 DC 01/04/21 19:16 Acetaminophen (Tylenol) 500 mg PRN Q12HR PRN PO PAIN 01/04/21 23:00 Cancel Atorvastatin Calcium (Lipitor) 10 mg QHS PO 01/05/21 21:00 01/08/21 19:56 Furosemide (Lasix) 40 mg DAILY PO 01/05/21 09:00 01/08/21 10:41 Metoprolol Tartrate (Lopressor) 50 mg BID PO 01/05/21 09:00 01/08/21 20:04 Potassium Chloride (Klor-Con) 20 meq DAILY PO 01/05/21 09:00 01/08/21 10:40 Polyethylene Glycol (miraLAX) 17 gm DAILY PO 01/05/21 09:00 01/08/21 10:40 Lorazepam (Ativan) 1 mg PRN Q4HRS PRN PO ANXIETY / AGITATION 01/04/21 23:00 01/07/21 23:07 Lorazepam (Ativan Intensol) 1 mg PRN Q6HRS PRN PO ANXIETY / AGITATION 01/04/21 23:00 Risperidone (RisperDAL) 0.25 mg DAILY PO 01/05/21 09:00 01/08/21 10:41 Risperidone (RisperDAL) 0.5 mg QHS PO 01/05/21 21:00 01/08/21 17:27 DC 01/07/21 20:28 Melatonin (Melatonin) 6 mg HS PO 01/05/21 21:00 01/08/21 17:27 DC 01/07/21 20:28 Acetaminophen (Tylenol) 650 mg PRN Q6HRS PRN PO MILD PAIN / TEMP > 100.3'F 01/04/21 22:45 01/05/21 08:40 Multi-Ingredient Ointment (Analgesic [place]) 1 abby PRN QID PRN TP MUSCLE PAIN 01/04/21 22:45 Al Hydroxide/Mg Hydroxide (Mylanta Plus Xs) 15 ml PRN AFTMEALHC PRN PO DYSPEPSIA 01/04/21 22:45 Magnesium Hydroxide (Milk Of Magnesia) 2,400 mg PRN QHS PRN PO CONSTIPATION 01/04/21 22:45 Potassium Chloride (Klor-Con) 40 meq 1X ONCE PO 01/05/21 15:45 01/05/21 15:49 DC 01/05/21 17:29 Potassium Chloride (Klor-Con) 20 meq BID PO 01/05/21 21:00 01/08/21 19:56 Sertraline HCl (Zoloft) 25 mg DAILY PO 01/07/21 09:00 01/09/21 18:00 01/08/21 10:41 Sertraline HCl (Zoloft) 50 mg DAILY PO 01/10/21 09:00 Melatonin (Melatonin) 3 mg HS PO 01/08/21 21:00 01/08/21 19:56 Trazodone HCl (Desyrel) 50 mg PRN QHS PRN PO INSOMNIA MRX1 01/08/21 17:30 01/08/21 19:56 Risperidone (RisperDAL) 1 mg QHS PO 01/08/21 21:00 01/08/21 19:47 DC Olanzapine (ZyPREXA ZYDIS) 2.5 mg PRN Q2HRS PRN PO PSYCHOSIS 01/08/21 19:45 Risperidone (RisperDAL) 0.5 mg HS PO 01/08/21 21:00 01/08/21 19:58 DC Risperidone (RisperDAL) 0.25 mg HS PO 01/08/21 20:00 01/08/21 20:01 DC Risperidone (RisperDAL) 0.25 mg HS PO 01/08/21 21:00 01/08/21 20:13 Current Medications Medications (Trade) Dose Ordered Sig/Marguerite Route PRN Reason Start Time Stop Time Status Last Admin Dose Admin Melatonin (Melatonin) 3 mg HS PO 01/08/21 21:00 01/08/21 19:56 Trazodone HCl (Desyrel) 50 mg PRN QHS PRN PO INSOMNIA MRX1 01/08/21 17:30 01/08/21 19:56 Risperidone (RisperDAL) 0.25 mg HS PO 01/08/21 21:00 01/08/21 20:13 I have reviewed the current psychotropics carefully including drug interactions. Risk benefit ratio favors no change other than as noted in my dictated progress note. 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
[2021-01-09] MEDS: SERTRALINE 25 MG TABLET. PO SCH (08:24)
[2021-01-09] MEDS: risperiDONE 0.25 MG TABLET. PO SCH ×2 (08:24→19:58)
[2021-01-09] MEDS: POTASSIUM CHLORIDE 20 MEQ TABLET.ER. PO SCH ×4 (08:29→12:08)
[2021-01-09] MEDS: FUROSEMIDE 40 MG TABLET PO SCH ×2 (08:30→09:00)
[2021-01-09] MEDS: METOPROLOL TART IMMED RELEASE 50 MG TABLET PO SCH ×3 (08:30→19:57)
[2021-01-09] MEDS: POLYETHYLENE GLYCOL 3350 17 GM PACKET. PO SCH ×2 (08:30→09:00)
[2021-01-09 16:21] VITALS: BP 113/66
[2021-01-09] MEDS ORDERED: LORazepam INTENSOL 2 MG/ML BOTTLE PO PRN (17:15)
[2021-01-09] MEDS: ATORVASTATIN CALCIUM 10 MG TABLET. PO SCH (19:57)
[2021-01-09] MEDS: traZODone 50 MG TABLET. PO PRN ×2 (19:58→22:20)
[2021-01-09] MEDS: MELATONIN 3 MG TABLET PO SCH (19:58)
--- NOTE | 2021-01-09 23:23 | PDOC ---
Exam Note: Devang Note: Please also refer to the separate dictated note~for this date of service dictated separately.~Patient seen individually. Discussed the patient with Nursing staff reviewed the chart.~Reviewed interim history and current functioning. Reviewed vital signs,~Labs/ Radiology~and current medications noted below. Continue current treatment with the changes noted in the dictated addendum note Assessment: Vital Signs/I&O: Vital Signs Date Time Temp Pulse Resp B/P (MAP) Pulse Ox O2 Delivery O2 Flow Rate FiO2 01/09/21 19:57 68 113/66 01/09/21 16:21 97.4 17 97 01/09/21 06:07 Room Air I & O 01/08/21 01/08/21 01/09/21 15:00 23:00 07:00 Intake Total 360 ml 720 ml Balance 360 ml 720 ml Current Medications: Meds: Current Medications Medications (Trade) Dose Ordered Sig/Marguerite Route PRN Reason Start Time Stop Time Status Last Admin Dose Admin Potassium Chloride (Klor-Con) 40 meq 1X ONCE PO 01/04/21 19:00 01/04/21 19:07 DC 01/04/21 19:16 Acetaminophen (Tylenol) 500 mg PRN Q12HR PRN PO PAIN 01/04/21 23:00 Cancel Atorvastatin Calcium (Lipitor) 10 mg QHS PO 01/05/21 21:00 01/09/21 19:57 Furosemide (Lasix) 40 mg DAILY PO 01/05/21 09:00 01/09/21 09:00 Metoprolol Tartrate (Lopressor) 50 mg BID PO 01/05/21 09:00 01/09/21 19:57 Potassium Chloride (Klor-Con) 20 meq DAILY PO 01/05/21 09:00 01/09/21 09:00 Polyethylene Glycol (miraLAX) 17 gm DAILY PO 01/05/21 09:00 01/09/21 09:00 Lorazepam (Ativan) 1 mg PRN Q4HRS PRN PO ANXIETY / AGITATION 01/04/21 23:00 01/09/21 10:42 DC 01/07/21 23:07 Lorazepam (Ativan Intensol) 1 mg PRN Q6HRS PRN PO ANXIETY / AGITATION 01/04/21 23:00 01/09/21 17:03 DC Risperidone (RisperDAL) 0.25 mg DAILY PO 01/05/21 09:00 01/09/21 08:24 Risperidone (RisperDAL) 0.5 mg QHS PO 01/05/21 21:00 01/08/21 17:27 DC 01/07/21 20:28 Melatonin (Melatonin) 6 mg HS PO 01/05/21 21:00 01/08/21 17:27 DC 01/07/21 20:28 Acetaminophen (Tylenol) 650 mg PRN Q6HRS PRN PO MILD PAIN / TEMP > 100.3'F 01/04/21 22:45 01/05/21 08:40 Multi-Ingredient Ointment (Analgesic [place]) 1 abby PRN QID PRN TP MUSCLE PAIN 01/04/21 22:45 Al Hydroxide/Mg Hydroxide (Mylanta Plus Xs) 15 ml PRN AFTMEALHC PRN PO DYSPEPSIA 01/04/21 22:45 Magnesium Hydroxide (Milk Of Magnesia) 2,400 mg PRN QHS PRN PO CONSTIPATION 01/04/21 22:45 Potassium Chloride (Klor-Con) 40 meq 1X ONCE PO 01/05/21 15:45 01/05/21 15:49 DC 01/05/21 17:29 Potassium Chloride (Klor-Con) 20 meq BID PO 01/05/21 21:00 01/09/21 12:08 Sertraline HCl (Zoloft) 25 mg DAILY PO 01/07/21 09:00 01/09/21 18:00 DC 01/09/21 08:24 Sertraline HCl (Zoloft) 50 mg DAILY PO 01/10/21 09:00 Melatonin (Melatonin) 3 mg HS PO 01/08/21 21:00 01/09/21 19:58 Trazodone HCl (Desyrel) 50 mg PRN QHS PRN PO INSOMNIA MRX1 01/08/21 17:30 01/09/21 22:20 Risperidone (RisperDAL) 1 mg QHS PO 01/08/21 21:00 01/08/21 19:47 DC Olanzapine (ZyPREXA ZYDIS) 2.5 mg PRN Q2HRS PRN PO PSYCHOSIS 01/08/21 19:45 01/09/21 19:58 Risperidone (RisperDAL) 0.5 mg HS PO 01/08/21 21:00 01/08/21 19:58 DC Risperidone (RisperDAL) 0.25 mg HS PO 01/08/21 20:00 01/08/21 20:01 DC Risperidone (RisperDAL) 0.25 mg HS PO 01/08/21 21:00 01/09/21 19:58 Lorazepam (Ativan Intensol) 0.25 mg PRN Q6HRS PRN PO ANXIETY / AGITATION 01/09/21 17:15 01/09/21 17:46 DC Lorazepam (Ativan Intensol) 0.25 mg PRN TID PRN PO ANXIETY / AGITATION 01/09/21 17:45 I have reviewed the current psychotropics carefully including drug interactions. Risk benefit ratio favors no change other than as noted in my dictated progress note. 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
[2021-01-10 06:45] VITALS: BP 120/58
[2021-01-10] MEDS: POTASSIUM CHLORIDE 20 MEQ TABLET.ER. PO SCH ×3 (09:00→20:53)
[2021-01-10] MEDS: METOPROLOL TART IMMED RELEASE 50 MG TABLET PO SCH ×2 (09:40→20:52)
[2021-01-10] MEDS: POLYETHYLENE GLYCOL 3350 17 GM PACKET. PO SCH (09:40)
[2021-01-10] MEDS: FUROSEMIDE 40 MG TABLET PO SCH (09:41)
[2021-01-10] MEDS: risperiDONE 0.25 MG TABLET. PO SCH ×2 (09:41→20:52)
[2021-01-10] MEDS: SERTRALINE 50 MG TABLET. PO SCH (09:41)
[2021-01-10 15:54] VITALS: BP 95/58
[2021-01-10] MEDS: ATORVASTATIN CALCIUM 10 MG TABLET. PO SCH (20:52)
[2021-01-10] MEDS: MELATONIN 3 MG TABLET PO SCH (20:52)
[2021-01-11] MEDS: traZODone 50 MG TABLET. PO PRN (02:57)
[2021-01-11 06:03] VITALS: BP 146/75
[2021-01-11] MEDS: POLYETHYLENE GLYCOL 3350 17 GM PACKET. PO SCH (08:56)
[2021-01-11] MEDS: METOPROLOL TART IMMED RELEASE 50 MG TABLET PO SCH ×2 (08:57→19:29)
[2021-01-11] MEDS: FUROSEMIDE 40 MG TABLET PO SCH (08:57)
[2021-01-11] MEDS: risperiDONE 0.25 MG TABLET. PO SCH ×2 (08:57→19:28)
[2021-01-11] MEDS: SERTRALINE 50 MG TABLET. PO SCH (08:57)
[2021-01-11] MEDS: POTASSIUM CHLORIDE 20 MEQ TABLET.ER. PO SCH ×3 (08:57→19:29)
--- NOTE | 2021-01-11 09:27 | PDOC ---
Exam Note: Devang Note: This note is a late entry for 01/09/2021 covers elements not covered in my initial note. Subjective: The patient was seen on telehealth rounds in the evening of 01/09/2021 with the nursing staff taking the telehealth camera to each patient, which was on a secure portal, discussed and reviewed the chart with Kaylee MARIANO. The patient slept 5-1/4 hours previous night. She is sometimes resistive to medications. They have to be hidden. She comes to know that there are medications in juice. She was yelling in the morning. Received Zyprexa p.r.n. in the morning. She has 2 orders of Ativan p.r.n. We will stop the tablets. Continue Intensol if available at the hospital. Review of Systems: Ambulation impaired in wheelchair. No CV, , pulmonary, eye system symptoms on review. Reliability poor. Mental Status Exam: The patient is oriented to herself. Insight and judgment, recent and remote memory, attention and concentration is poor consistent with her diagnoses. Laboratory Data: Reviewed. Impression: Major neurocognitive disorder Alzheimer vascular with delusion, depression, and behavioral disturbance. Anxiety disorder unspecified. Impulse control disorder unspecified. Plan: Changes with psychotropics as noted above. Assessment: Vital Signs/I&O: Vital Signs Date Time Temp Pulse Resp B/P (MAP) Pulse Ox O2 Delivery O2 Flow Rate FiO2 01/11/21 08:57 64 146/75 01/11/21 06:03 97.8 18 96 01/10/21 15:54 Room Air I & O 01/10/21 01/10/21 01/11/21 14:59 22:59 06:59 Intake Total 840 ml 480 ml Balance 840 ml 480 ml Current Medications: Meds: Current Medications Medications (Trade) Dose Ordered Sig/Marguerite Route PRN Reason Start Time Stop Time Status Last Admin Dose Admin Potassium Chloride (Klor-Con) 40 meq 1X ONCE PO 01/04/21 19:00 01/04/21 19:07 DC 01/04/21 19:16 Acetaminophen (Tylenol) 500 mg PRN Q12HR PRN PO PAIN 01/04/21 23:00 Cancel Atorvastatin Calcium (Lipitor) 10 mg QHS PO 01/05/21 21:00 01/10/21 20:52 Furosemide (Lasix) 40 mg DAILY PO 01/05/21 09:00 01/11/21 08:57 Metoprolol Tartrate (Lopressor) 50 mg BID PO 01/05/21 09:00 01/11/21 08:57 Potassium Chloride (Klor-Con) 20 meq DAILY PO 01/05/21 09:00 01/11/21 08:57 Polyethylene Glycol (miraLAX) 17 gm DAILY PO 01/05/21 09:00 01/11/21 08:56 Lorazepam (Ativan) 1 mg PRN Q4HRS PRN PO ANXIETY / AGITATION 01/04/21 23:00 01/09/21 10:42 DC 01/07/21 23:07 Lorazepam (Ativan Intensol) 1 mg PRN Q6HRS PRN PO ANXIETY / AGITATION 01/04/21 23:00 01/09/21 17:03 DC Risperidone (RisperDAL) 0.25 mg DAILY PO 01/05/21 09:00 01/11/21 08:57 Risperidone (RisperDAL) 0.5 mg QHS PO 01/05/21 21:00 01/08/21 17:27 DC 01/07/21 20:28 Melatonin (Melatonin) 6 mg HS PO 01/05/21 21:00 01/08/21 17:27 DC 01/07/21 20:28 Acetaminophen (Tylenol) 650 mg PRN Q6HRS PRN PO MILD PAIN / TEMP > 100.3'F 01/04/21 22:45 01/05/21 08:40 Multi-Ingredient Ointment (Analgesic [place]) 1 abby PRN QID PRN TP MUSCLE PAIN 01/04/21 22:45 Al Hydroxide/Mg Hydroxide (Mylanta Plus Xs) 15 ml PRN AFTMEALHC PRN PO DYSPEPSIA 01/04/21 22:45 Magnesium Hydroxide (Milk Of Magnesia) 2,400 mg PRN QHS PRN PO CONSTIPATION 01/04/21 22:45 Potassium Chloride (Klor-Con) 40 meq 1X ONCE PO 01/05/21 15:45 01/05/21 15:49 DC 01/05/21 17:29 Potassium Chloride (Klor-Con) 20 meq BID PO 01/05/21 21:00 01/10/21 20:53 Sertraline HCl (Zoloft) 25 mg DAILY PO 01/07/21 09:00 01/09/21 18:00 DC 01/09/21 08:24 Sertraline HCl (Zoloft) 50 mg DAILY PO 01/10/21 09:00 01/11/21 08:57 Melatonin (Melatonin) 3 mg HS PO 01/08/21 21:00 01/10/21 20:52 Trazodone HCl (Desyrel) 50 mg PRN QHS PRN PO INSOMNIA MRX1 01/08/21 17:30 01/11/21 02:57 Risperidone (RisperDAL) 1 mg QHS PO 01/08/21 21:00 01/08/21 19:47 DC Olanzapine (ZyPREXA ZYDIS) 2.5 mg PRN Q2HRS PRN PO PSYCHOSIS 01/08/21 19:45 01/09/21 19:58 Risperidone (RisperDAL) 0.5 mg HS PO 01/08/21 21:00 01/08/21 19:58 DC Risperidone (RisperDAL) 0.25 mg HS PO 01/08/21 20:00 01/08/21 20:01 DC Risperidone (RisperDAL) 0.25 mg HS PO 01/08/21 21:00 01/10/21 20:52 Lorazepam (Ativan Intensol) 0.25 mg PRN Q6HRS PRN PO ANXIETY / AGITATION 01/09/21 17:15 01/09/21 17:46 DC Lorazepam (Ativan Intensol) 0.25 mg PRN TID PRN PO ANXIETY / AGITATION 01/09/21 17:45 I have reviewed the current psychotropics carefully including drug interactions. Risk benefit ratio favors no change other than as noted in my dictated progress note. 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
[2021-01-11] MEDS ORDERED: traZODone 50 MG TABLET. PO ONE (14:45)
[2021-01-11 15:45] VITALS: BP 152/66
[2021-01-11] MEDS: ATORVASTATIN CALCIUM 10 MG TABLET. PO SCH (19:29)
[2021-01-11] MEDS: MIRTAZAPINE 7.5 MG TABLET. PO SCH (19:29)
[2021-01-11] MEDS: MELATONIN 3 MG TABLET PO SCH (19:29)
--- NOTE | 2021-01-11 22:13 | PDOC ---
Exam Note: Devang Note: Please also refer to the separate dictated note~for this date of service dictated separately.~Patient seen individually. Discussed the patient with Nursing staff reviewed the chart.~Reviewed interim history and current functioning. Reviewed vital signs,~Labs/ Radiology~and current medications noted below. Continue current treatment with the changes noted in the dictated addendum note Assessment: Vital Signs/I&O: Vital Signs Date Time Temp Pulse Resp B/P (MAP) Pulse Ox O2 Delivery O2 Flow Rate FiO2 01/11/21 19:29 61 152/66 01/11/21 15:45 97.1 18 92 01/10/21 15:54 Room Air I & O 01/10/21 01/10/21 01/11/21 15:00 23:00 07:00 Intake Total 840 ml 480 ml Balance 840 ml 480 ml Current Medications: Meds: Current Medications Medications (Trade) Dose Ordered Sig/Marguerite Route PRN Reason Start Time Stop Time Status Last Admin Dose Admin Potassium Chloride (Klor-Con) 40 meq 1X ONCE PO 01/04/21 19:00 01/04/21 19:07 DC 01/04/21 19:16 Acetaminophen (Tylenol) 500 mg PRN Q12HR PRN PO PAIN 01/04/21 23:00 Cancel Atorvastatin Calcium (Lipitor) 10 mg QHS PO 01/05/21 21:00 01/11/21 19:29 Furosemide (Lasix) 40 mg DAILY PO 01/05/21 09:00 01/11/21 08:57 Metoprolol Tartrate (Lopressor) 50 mg BID PO 01/05/21 09:00 01/11/21 19:29 Potassium Chloride (Klor-Con) 20 meq DAILY PO 01/05/21 09:00 01/11/21 15:00 DC 01/11/21 08:57 Polyethylene Glycol (miraLAX) 17 gm DAILY PO 01/05/21 09:00 01/11/21 08:56 Lorazepam (Ativan) 1 mg PRN Q4HRS PRN PO ANXIETY / AGITATION 01/04/21 23:00 01/09/21 10:42 DC 01/07/21 23:07 Lorazepam (Ativan Intensol) 1 mg PRN Q6HRS PRN PO ANXIETY / AGITATION 01/04/21 23:00 01/09/21 17:03 DC Risperidone (RisperDAL) 0.25 mg DAILY PO 01/05/21 09:00 01/11/21 08:57 Risperidone (RisperDAL) 0.5 mg QHS PO 01/05/21 21:00 01/08/21 17:27 DC 01/07/21 20:28 Melatonin (Melatonin) 6 mg HS PO 01/05/21 21:00 01/08/21 17:27 DC 01/07/21 20:28 Acetaminophen (Tylenol) 650 mg PRN Q6HRS PRN PO MILD PAIN / TEMP > 100.3'F 01/04/21 22:45 01/05/21 08:40 Multi-Ingredient Ointment (Analgesic [place]) 1 abby PRN QID PRN TP MUSCLE PAIN 01/04/21 22:45 Al Hydroxide/Mg Hydroxide (Mylanta Plus Xs) 15 ml PRN AFTMEALHC PRN PO DYSPEPSIA 01/04/21 22:45 Magnesium Hydroxide (Milk Of Magnesia) 2,400 mg PRN QHS PRN PO CONSTIPATION 01/04/21 22:45 Potassium Chloride (Klor-Con) 40 meq 1X ONCE PO 01/05/21 15:45 01/05/21 15:49 DC 01/05/21 17:29 Potassium Chloride (Klor-Con) 20 meq BID PO 01/05/21 21:00 01/11/21 19:29 Sertraline HCl (Zoloft) 25 mg DAILY PO 01/07/21 09:00 01/09/21 18:00 DC 01/09/21 08:24 Sertraline HCl (Zoloft) 50 mg DAILY PO 01/10/21 09:00 01/11/21 08:57 Melatonin (Melatonin) 3 mg HS PO 01/08/21 21:00 01/11/21 19:29 Trazodone HCl (Desyrel) 50 mg PRN QHS PRN PO INSOMNIA MRX1 01/08/21 17:30 01/11/21 02:57 Risperidone (RisperDAL) 1 mg QHS PO 01/08/21 21:00 01/08/21 19:47 DC Olanzapine (ZyPREXA ZYDIS) 2.5 mg PRN Q2HRS PRN PO PSYCHOSIS 01/08/21 19:45 6/26/21 19:58 Risperidone (RisperDAL) 0.5 mg HS PO 01/08/21 21:00 01/08/21 19:58 DC Risperidone (RisperDAL) 0.25 mg HS PO 01/08/21 20:00 01/08/21 20:01 DC Risperidone (RisperDAL) 0.25 mg HS PO 01/08/21 21:00 01/11/21 19:28 Lorazepam (Ativan Intensol) 0.25 mg PRN Q6HRS PRN PO ANXIETY / AGITATION 01/09/21 17:15 01/09/21 17:46 DC Lorazepam (Ativan Intensol) 0.25 mg PRN TID PRN PO ANXIETY / AGITATION 01/09/21 17:45 Trazodone HCl (Desyrel) 50 mg 1445 ONCE PO 01/11/21 14:45 01/11/21 14:54 DC Mirtazapine (Remeron) 7.5 mg QHS PO 01/11/21 21:00 01/11/21 19:29 Current Medications Medications (Trade) Dose Ordered Sig/Marguerite Route PRN Reason Start Time Stop Time Status Last Admin Dose Admin Mirtazapine (Remeron) 7.5 mg QHS PO 01/11/21 21:00 01/11/21 19:29 I have reviewed the current psychotropics carefully including drug interactions. Risk benefit ratio favors no change other than as noted in my dictated progress note. 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
[2021-01-12 05:54] VITALS: BP 149/70
[2021-01-12] MEDS: POLYETHYLENE GLYCOL 3350 17 GM PACKET. PO SCH (08:29)
[2021-01-12] MEDS: POTASSIUM CHLORIDE 20 MEQ TABLET.ER. PO SCH ×2 (08:30→19:40)
[2021-01-12] MEDS: METOPROLOL TART IMMED RELEASE 50 MG TABLET PO SCH ×2 (08:30→19:40)
[2021-01-12] MEDS: SERTRALINE 50 MG TABLET. PO SCH (08:30)
[2021-01-12] MEDS: FUROSEMIDE 40 MG TABLET PO SCH (08:31)
[2021-01-12] MEDS: risperiDONE 0.25 MG TABLET. PO SCH ×2 (08:31→19:42)
--- NOTE | 2021-01-12 09:47 | PDOC ---
Exam Note: Devang Note: This note is a late entry for 01/10/2021 covers elements not covered in my initial note. Subjective: The patient was seen on telehealth rounds in the afternoon of 01/10/2021 with the nursing staff taking the telehealth camera to each patient, which was on a secure portal, discussed and reviewed the chart with Zena MARIANO. The patient slept 5-1/4 hours previous night. She gets agitated at times. Received Zyprexa at 8 p.m. She took her medications with food, somewhat more social, sleeps in her wheelchair often. Review of Systems: Ambulation impaired in wheelchair. No CV, , pulmonary, eye system symptoms on review. Reliability poor. Mental Status Exam: The patient is oriented to herself. Insight and judgment, recent and remote memory, attention and concentration is poor consistent with her diagnoses. Laboratory Data: Reviewed. Impression: Major neurocognitive disorder Alzheimer vascular with delusion, depression, and behavioral disturbance. Anxiety disorder unspecified. Impulse control disorder unspecified. Plan: Changes with psychotropics as noted above. Assessment: Vital Signs/I&O: Vital Signs Date Time Temp Pulse Resp B/P (MAP) Pulse Ox O2 Delivery O2 Flow Rate FiO2 01/12/21 08:30 79 149/70 01/12/21 05:54 97.8 16 96 01/10/21 15:54 Room Air I & O 01/11/21 01/11/21 01/12/21 15:00 23:00 07:00 Intake Total 840 ml 600 ml Balance 840 ml 600 ml Current Medications: Meds: Current Medications Medications (Trade) Dose Ordered Sig/Marguerite Route PRN Reason Start Time Stop Time Status Last Admin Dose Admin Potassium Chloride (Klor-Con) 40 meq 1X ONCE PO 01/04/21 19:00 01/04/21 19:07 DC 01/04/21 19:16 Acetaminophen (Tylenol) 500 mg PRN Q12HR PRN PO PAIN 01/04/21 23:00 Cancel Atorvastatin Calcium (Lipitor) 10 mg QHS PO 01/05/21 21:00 01/11/21 19:29 Furosemide (Lasix) 40 mg DAILY PO 01/05/21 09:00 01/12/21 08:31 Metoprolol Tartrate (Lopressor) 50 mg BID PO 01/05/21 09:00 01/12/21 08:30 Potassium Chloride (Klor-Con) 20 meq DAILY PO 01/05/21 09:00 01/11/21 15:00 DC 01/11/21 08:57 Polyethylene Glycol (miraLAX) 17 gm DAILY PO 01/05/21 09:00 01/12/21 08:29 Lorazepam (Ativan) 1 mg PRN Q4HRS PRN PO ANXIETY / AGITATION 01/04/21 23:00 01/09/21 10:42 DC 01/07/21 23:07 Lorazepam (Ativan Intensol) 1 mg PRN Q6HRS PRN PO ANXIETY / AGITATION 01/04/21 23:00 01/09/21 17:03 DC Risperidone (RisperDAL) 0.25 mg DAILY PO 01/05/21 09:00 01/12/21 08:31 Risperidone (RisperDAL) 0.5 mg QHS PO 01/05/21 21:00 01/08/21 17:27 DC 01/07/21 20:28 Melatonin (Melatonin) 6 mg HS PO 01/05/21 21:00 01/08/21 17:27 DC 01/07/21 20:28 Acetaminophen (Tylenol) 650 mg PRN Q6HRS PRN PO MILD PAIN / TEMP > 100.3'F 01/04/21 22:45 01/05/21 08:40 Multi-Ingredient Ointment (Analgesic [place]) 1 abby PRN QID PRN TP MUSCLE PAIN 01/04/21 22:45 Al Hydroxide/Mg Hydroxide (Mylanta Plus Xs) 15 ml PRN AFTMEALHC PRN PO DYSPEPSIA 01/04/21 22:45 Magnesium Hydroxide (Milk Of Magnesia) 2,400 mg PRN QHS PRN PO CONSTIPATION 01/04/21 22:45 Potassium Chloride (Klor-Con) 40 meq 1X ONCE PO 01/05/21 15:45 01/05/21 15:49 DC 01/05/21 17:29 Potassium Chloride (Klor-Con) 20 meq BID PO 01/05/21 21:00 01/12/21 08:30 Sertraline HCl (Zoloft) 25 mg DAILY PO 01/07/21 09:00 01/09/21 18:00 DC 01/09/21 08:24 Sertraline HCl (Zoloft) 50 mg DAILY PO 01/10/21 09:00 01/12/21 08:30 Melatonin (Melatonin) 3 mg HS PO 01/08/21 21:00 01/11/21 19:29 Trazodone HCl (Desyrel) 50 mg PRN QHS PRN PO INSOMNIA MRX1 01/08/21 17:30 01/11/21 02:57 Risperidone (RisperDAL) 1 mg QHS PO 01/08/21 21:00 01/08/21 19:47 DC Olanzapine (ZyPREXA ZYDIS) 2.5 mg PRN Q2HRS PRN PO PSYCHOSIS 01/08/21 19:45 01/09/21 19:58 Risperidone (RisperDAL) 0.5 mg HS PO 01/08/21 21:00 01/08/21 19:58 DC Risperidone (RisperDAL) 0.25 mg HS PO 01/08/21 20:00 01/08/21 20:01 DC Risperidone (RisperDAL) 0.25 mg HS PO 01/08/21 21:00 01/11/21 19:28 Lorazepam (Ativan Intensol) 0.25 mg PRN Q6HRS PRN PO ANXIETY / AGITATION 01/09/21 17:15 01/09/21 17:46 DC Lorazepam (Ativan Intensol) 0.25 mg PRN TID PRN PO ANXIETY / AGITATION 01/09/21 17:45 Trazodone HCl (Desyrel) 50 mg 1445 ONCE PO 01/11/21 14:45 01/11/21 14:54 DC Mirtazapine (Remeron) 7.5 mg QHS PO 01/11/21 21:00 01/11/21 19:29 Current Medications Medications (Trade) Dose Ordered Sig/Marguerite Route PRN Reason Start Time Stop Time Status Last Admin Dose Admin Mirtazapine (Remeron) 7.5 mg QHS PO 01/11/21 21:00 01/11/21 19:29 I have reviewed the current psychotropics carefully including drug interactions. Risk benefit ratio favors no change other than as noted in my dictated progress note. 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
--- NOTE | 2021-01-12 10:17 | PDOC ---
Exam Note: Devang Note: This note is a late entry for 01/11/2021 covers elements not covered in my initial note. Subjective: The patient was seen on telehealth rounds in the afternoon of 01/11/2021 with the nursing staff taking the telehealth camera to each patient, which was on a secure portal, discussed and reviewed the chart with Zena MARIANO. The patient slept 4-1/2 hours previous night. She is somewhat intrusive, sarcastic at times, takes medications hidden in pudding, somewhat paranoid as I met with her on telehealth rounds. Review of Systems: Ambulation impaired in wheelchair. No CV, , pulmonary, eye system symptoms on review. Reliability poor. Mental Status Exam: The patient is oriented to herself. Insight and judgment, recent and remote memory, attention and concentration is poor consistent with her diagnoses. Laboratory Data: Reviewed. Impression: Major neurocognitive disorder Alzheimer vascular with delusion, depression, and behavioral disturbance. Anxiety disorder unspecified. Impulse control disorder unspecified. Plan: Continue psychotropics as noted above. Given the ongoing insomnia, start Remeron 7.5 mg p.o. h.s. Maintain trazodone 50 mg p.r.n., may repeat x1 for insomnia. We may consider increasing Risperdal for paranoia. Assessment: Vital Signs/I&O: Vital Signs Date Time Temp Pulse Resp B/P (MAP) Pulse Ox O2 Delivery O2 Flow Rate FiO2 01/12/21 08:30 79 149/70 01/12/21 05:54 97.8 16 96 01/10/21 15:54 Room Air I & O 01/11/21 01/11/21 01/12/21 15:00 23:00 07:00 Intake Total 840 ml 600 ml Balance 840 ml 600 ml Current Medications: Meds: Current Medications Medications (Trade) Dose Ordered Sig/Marguerite Route PRN Reason Start Time Stop Time Status Last Admin Dose Admin Potassium Chloride (Klor-Con) 40 meq 1X ONCE PO 01/04/21 19:00 01/04/21 19:07 DC 01/04/21 19:16 Acetaminophen (Tylenol) 500 mg PRN Q12HR PRN PO PAIN 01/04/21 23:00 Cancel Atorvastatin Calcium (Lipitor) 10 mg QHS PO 01/05/21 21:00 01/11/21 19:29 Furosemide (Lasix) 40 mg DAILY PO 01/05/21 09:00 01/12/21 08:31 Metoprolol Tartrate (Lopressor) 50 mg BID PO 01/05/21 09:00 01/12/21 08:30 Potassium Chloride (Klor-Con) 20 meq DAILY PO 01/05/21 09:00 01/11/21 15:00 DC 01/11/21 08:57 Polyethylene Glycol (miraLAX) 17 gm DAILY PO 01/05/21 09:00 01/12/21 08:29 Lorazepam (Ativan) 1 mg PRN Q4HRS PRN PO ANXIETY / AGITATION 01/04/21 23:00 01/09/21 10:42 DC 01/07/21 23:07 Lorazepam (Ativan Intensol) 1 mg PRN Q6HRS PRN PO ANXIETY / AGITATION 01/04/21 23:00 01/09/21 17:03 DC Risperidone (RisperDAL) 0.25 mg DAILY PO 01/05/21 09:00 01/12/21 08:31 Risperidone (RisperDAL) 0.5 mg QHS PO 01/05/21 21:00 01/08/21 17:27 DC 01/07/21 20:28 Melatonin (Melatonin) 6 mg HS PO 01/05/21 21:00 01/08/21 17:27 DC 01/07/21 20:28 Acetaminophen (Tylenol) 650 mg PRN Q6HRS PRN PO MILD PAIN / TEMP > 100.3'F 01/04/21 22:45 01/05/21 08:40 Multi-Ingredient Ointment (Analgesic [place]) 1 abby PRN QID PRN TP MUSCLE PAIN 01/04/21 22:45 Al Hydroxide/Mg Hydroxide (Mylanta Plus Xs) 15 ml PRN AFTMEALHC PRN PO DYSPEPSIA 01/04/21 22:45 Magnesium Hydroxide (Milk Of Magnesia) 2,400 mg PRN QHS PRN PO CONSTIPATION 01/04/21 22:45 Potassium Chloride (Klor-Con) 40 meq 1X ONCE PO 01/05/21 15:45 01/05/21 15:49 DC 01/05/21 17:29 Potassium Chloride (Klor-Con) 20 meq BID PO 01/05/21 21:00 01/12/21 08:30 Sertraline HCl (Zoloft) 25 mg DAILY PO 01/07/21 09:00 01/09/21 18:00 DC 01/09/21 08:24 Sertraline HCl (Zoloft) 50 mg DAILY PO 01/10/21 09:00 01/12/21 08:30 Melatonin (Melatonin) 3 mg HS PO 01/08/21 21:00 01/11/21 19:29 Trazodone HCl (Desyrel) 50 mg PRN QHS PRN PO INSOMNIA MRX1 01/08/21 17:30 01/11/21 02:57 Risperidone (RisperDAL) 1 mg QHS PO 01/08/21 21:00 01/08/21 19:47 DC Olanzapine (ZyPREXA ZYDIS) 2.5 mg PRN Q2HRS PRN PO PSYCHOSIS 01/08/21 19:45 01/09/21 19:58 Risperidone (RisperDAL) 0.5 mg HS PO 01/08/21 21:00 01/08/21 19:58 DC Risperidone (RisperDAL) 0.25 mg HS PO 01/08/21 20:00 01/08/21 20:01 DC Risperidone (RisperDAL) 0.25 mg HS PO 01/08/21 21:00 01/11/21 19:28 Lorazepam (Ativan Intensol) 0.25 mg PRN Q6HRS PRN PO ANXIETY / AGITATION 01/09/21 17:15 01/09/21 17:46 DC Lorazepam (Ativan Intensol) 0.25 mg PRN TID PRN PO ANXIETY / AGITATION 01/09/21 17:45 Trazodone HCl (Desyrel) 50 mg 1445 ONCE PO 01/11/21 14:45 01/11/21 14:54 DC Mirtazapine (Remeron) 7.5 mg QHS PO 01/11/21 21:00 01/11/21 19:29 Current Medications Medications (Trade) Dose Ordered Sig/Marguerite Route PRN Reason Start Time Stop Time Status Last Admin Dose Admin Mirtazapine (Remeron) 7.5 mg QHS PO 01/11/21 21:00 01/11/21 19:29 I have reviewed the current psychotropics carefully including drug interactions. Risk benefit ratio favors no change other than as noted in my dictated progress note. 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
[2021-01-12 16:07] VITALS: BP 127/50
[2021-01-12] MEDS: MELATONIN 3 MG TABLET PO SCH (19:39)
[2021-01-12] MEDS: traZODone 50 MG TABLET. PO PRN (19:39)
[2021-01-12] MEDS: ATORVASTATIN CALCIUM 10 MG TABLET. PO SCH (19:40)
[2021-01-12] MEDS: MIRTAZAPINE 7.5 MG TABLET. PO SCH (19:42)
--- NOTE | 2021-01-12 22:11 | PDOC ---
Exam Note: Devang Note: Please also refer to the separate dictated note~for this date of service dictated separately.~Patient seen individually. Discussed the patient with Nursing staff reviewed the chart.~Reviewed interim history and current functioning. Reviewed vital signs,~Labs/ Radiology~and current medications noted below. Continue current treatment with the changes noted in the dictated addendum note Assessment: Vital Signs/I&O: Vital Signs Date Time Temp Pulse Resp B/P (MAP) Pulse Ox O2 Delivery O2 Flow Rate FiO2 01/12/21 19:40 81 127/50 01/12/21 16:07 98.2 20 99 01/10/21 15:54 Room Air I & O 01/11/21 01/11/21 01/12/21 15:00 23:00 07:00 Intake Total 840 ml 600 ml Balance 840 ml 600 ml Current Medications: Meds: Current Medications Medications (Trade) Dose Ordered Sig/Marguerite Route PRN Reason Start Time Stop Time Status Last Admin Dose Admin Potassium Chloride (Klor-Con) 40 meq 1X ONCE PO 01/04/21 19:00 01/04/21 19:07 DC 01/04/21 19:16 Acetaminophen (Tylenol) 500 mg PRN Q12HR PRN PO PAIN 01/04/21 23:00 Cancel Atorvastatin Calcium (Lipitor) 10 mg QHS PO 01/05/21 21:00 01/12/21 19:40 Furosemide (Lasix) 40 mg DAILY PO 01/05/21 09:00 01/12/21 08:31 Metoprolol Tartrate (Lopressor) 50 mg BID PO 01/05/21 09:00 01/12/21 19:40 Potassium Chloride (Klor-Con) 20 meq DAILY PO 01/05/21 09:00 01/11/21 15:00 DC 01/11/21 08:57 Polyethylene Glycol (miraLAX) 17 gm DAILY PO 01/05/21 09:00 01/12/21 08:29 Lorazepam (Ativan) 1 mg PRN Q4HRS PRN PO ANXIETY / AGITATION 01/04/21 23:00 01/09/21 10:42 DC 01/07/21 23:07 Lorazepam (Ativan Intensol) 1 mg PRN Q6HRS PRN PO ANXIETY / AGITATION 01/04/21 23:00 01/09/21 17:03 DC Risperidone (RisperDAL) 0.25 mg DAILY PO 01/05/21 09:00 01/12/21 08:31 Risperidone (RisperDAL) 0.5 mg QHS PO 01/05/21 21:00 01/08/21 17:27 DC 01/07/21 20:28 Melatonin (Melatonin) 6 mg HS PO 01/05/21 21:00 01/08/21 17:27 DC 01/07/21 20:28 Acetaminophen (Tylenol) 650 mg PRN Q6HRS PRN PO MILD PAIN / TEMP > 100.3'F 01/04/21 22:45 01/05/21 08:40 Multi-Ingredient Ointment (Analgesic [place]) 1 abby PRN QID PRN TP MUSCLE PAIN 01/04/21 22:45 Al Hydroxide/Mg Hydroxide (Mylanta Plus Xs) 15 ml PRN AFTMEALHC PRN PO DYSPEPSIA 01/04/21 22:45 Magnesium Hydroxide (Milk Of Magnesia) 2,400 mg PRN QHS PRN PO CONSTIPATION 01/04/21 22:45 Potassium Chloride (Klor-Con) 40 meq 1X ONCE PO 01/05/21 15:45 01/05/21 15:49 DC 01/05/21 17:29 Potassium Chloride (Klor-Con) 20 meq BID PO 01/05/21 21:00 01/12/21 19:40 Sertraline HCl (Zoloft) 25 mg DAILY PO 01/07/21 09:00 01/09/21 18:00 DC 01/09/21 08:24 Sertraline HCl (Zoloft) 50 mg DAILY PO 01/10/21 09:00 01/12/21 08:30 Melatonin (Melatonin) 3 mg HS PO 01/08/21 21:00 01/12/21 19:39 Trazodone HCl (Desyrel) 50 mg PRN QHS PRN PO INSOMNIA MRX1 01/08/21 17:30 01/12/21 19:39 Risperidone (RisperDAL) 1 mg QHS PO 01/08/21 21:00 01/08/21 19:47 DC Olanzapine (ZyPREXA ZYDIS) 2.5 mg PRN Q2HRS PRN PO PSYCHOSIS 01/08/21 19:45 6/29/21 16:29 Risperidone (RisperDAL) 0.5 mg HS PO 01/08/21 21:00 01/08/21 19:58 DC Risperidone (RisperDAL) 0.25 mg HS PO 01/08/21 20:00 01/08/21 20:01 DC Risperidone (RisperDAL) 0.25 mg HS PO 01/08/21 21:00 01/12/21 19:42 Lorazepam (Ativan Intensol) 0.25 mg PRN Q6HRS PRN PO ANXIETY / AGITATION 01/09/21 17:15 01/09/21 17:46 DC Lorazepam (Ativan Intensol) 0.25 mg PRN TID PRN PO ANXIETY / AGITATION 01/09/21 17:45 Trazodone HCl (Desyrel) 50 mg 1445 ONCE PO 01/11/21 14:45 01/11/21 14:54 DC Mirtazapine (Remeron) 7.5 mg QHS PO 01/11/21 21:00 01/12/21 19:42 I have reviewed the current psychotropics carefully including drug interactions. Risk benefit ratio favors no change other than as noted in my dictated progress note. 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
[2021-01-13 05:57] VITALS: BP 118/53
[2021-01-13] MEDS: SERTRALINE 50 MG TABLET. PO SCH (08:22)
[2021-01-13] MEDS: POTASSIUM CHLORIDE 20 MEQ TABLET.ER. PO SCH ×2 (08:22→20:11)
[2021-01-13] MEDS: FUROSEMIDE 40 MG TABLET PO SCH (08:22)
[2021-01-13] MEDS: risperiDONE 0.25 MG TABLET. PO SCH ×2 (08:23→20:11)
[2021-01-13] MEDS: METOPROLOL TART IMMED RELEASE 50 MG TABLET PO SCH ×2 (08:23→20:12)
[2021-01-13] MEDS: POLYETHYLENE GLYCOL 3350 17 GM PACKET. PO SCH (08:23)
[2021-01-13 16:23] VITALS: BP 106/62
[2021-01-13] MEDS: traZODone 50 MG TABLET. PO PRN (20:10)
[2021-01-13] MEDS: MIRTAZAPINE 7.5 MG TABLET. PO SCH (20:11)
[2021-01-13] MEDS: ATORVASTATIN CALCIUM 10 MG TABLET. PO SCH (20:11)
[2021-01-13] MEDS: MELATONIN 3 MG TABLET PO SCH (20:12)
--- NOTE | 2021-01-13 22:50 | PDOC ---
Exam Note: Devang Note: Please also refer to the separate dictated note~for this date of service dictated separately.~Patient seen individually. Discussed the patient with Nursing staff reviewed the chart.~Reviewed interim history and current functioning. Reviewed vital signs,~Labs/ Radiology~and current medications noted below. Continue current treatment with the changes noted in the dictated addendum note Assessment: Vital Signs/I&O: Vital Signs Date Time Temp Pulse Resp B/P (MAP) Pulse Ox O2 Delivery O2 Flow Rate FiO2 01/13/21 20:12 71 106/62 01/13/21 16:23 97.2 18 93 Room Air I & O 01/12/21 01/12/21 01/13/21 15:00 23:00 07:00 Intake Total 480 ml 720 ml Balance 480 ml 720 ml Current Medications: Meds: Current Medications Medications (Trade) Dose Ordered Sig/Marguerite Route PRN Reason Start Time Stop Time Status Last Admin Dose Admin Potassium Chloride (Klor-Con) 40 meq 1X ONCE PO 01/04/21 19:00 01/04/21 19:07 DC 01/04/21 19:16 Acetaminophen (Tylenol) 500 mg PRN Q12HR PRN PO PAIN 01/04/21 23:00 Cancel Atorvastatin Calcium (Lipitor) 10 mg QHS PO 01/05/21 21:00 01/13/21 20:11 Furosemide (Lasix) 40 mg DAILY PO 01/05/21 09:00 01/13/21 08:22 Metoprolol Tartrate (Lopressor) 50 mg BID PO 01/05/21 09:00 01/13/21 08:23 Potassium Chloride (Klor-Con) 20 meq DAILY PO 01/05/21 09:00 01/11/21 15:00 DC 01/11/21 08:57 Polyethylene Glycol (miraLAX) 17 gm DAILY PO 01/05/21 09:00 01/13/21 08:23 Lorazepam (Ativan) 1 mg PRN Q4HRS PRN PO ANXIETY / AGITATION 01/04/21 23:00 01/09/21 10:42 DC 01/07/21 23:07 Lorazepam (Ativan Intensol) 1 mg PRN Q6HRS PRN PO ANXIETY / AGITATION 01/04/21 23:00 01/09/21 17:03 DC Risperidone (RisperDAL) 0.25 mg DAILY PO 01/05/21 09:00 01/13/21 08:23 Risperidone (RisperDAL) 0.5 mg QHS PO 01/05/21 21:00 01/08/21 17:27 DC 01/07/21 20:28 Melatonin (Melatonin) 6 mg HS PO 01/05/21 21:00 01/08/21 17:27 DC 01/07/21 20:28 Acetaminophen (Tylenol) 650 mg PRN Q6HRS PRN PO MILD PAIN / TEMP > 100.3'F 01/04/21 22:45 01/05/21 08:40 Multi-Ingredient Ointment (Analgesic [place]) 1 abby PRN QID PRN TP MUSCLE PAIN 01/04/21 22:45 Al Hydroxide/Mg Hydroxide (Mylanta Plus Xs) 15 ml PRN AFTMEALHC PRN PO DYSPEPSIA 01/04/21 22:45 Magnesium Hydroxide (Milk Of Magnesia) 2,400 mg PRN QHS PRN PO CONSTIPATION 01/04/21 22:45 Potassium Chloride (Klor-Con) 40 meq 1X ONCE PO 01/05/21 15:45 01/05/21 15:49 DC 01/05/21 17:29 Potassium Chloride (Klor-Con) 20 meq BID PO 01/05/21 21:00 01/13/21 20:11 Sertraline HCl (Zoloft) 25 mg DAILY PO 01/07/21 09:00 01/09/21 18:00 DC 01/09/21 08:24 Sertraline HCl (Zoloft) 50 mg DAILY PO 01/10/21 09:00 01/13/21 08:22 Melatonin (Melatonin) 3 mg HS PO 01/08/21 21:00 01/13/21 20:12 Trazodone HCl (Desyrel) 50 mg PRN QHS PRN PO INSOMNIA MRX1 01/08/21 17:30 01/13/21 20:10 Risperidone (RisperDAL) 1 mg QHS PO 01/08/21 21:00 01/08/21 19:47 DC Olanzapine (ZyPREXA ZYDIS) 2.5 mg PRN Q2HRS PRN PO PSYCHOSIS 01/08/21 19:45 01/12/21 16:29 Risperidone (RisperDAL) 0.5 mg HS PO 01/08/21 21:00 01/08/21 19:58 DC Risperidone (RisperDAL) 0.25 mg HS PO 01/08/21 20:00 01/08/21 20:01 DC Risperidone (RisperDAL) 0.25 mg HS PO 01/08/21 21:00 01/13/21 20:11 Lorazepam (Ativan Intensol) 0.25 mg PRN Q6HRS PRN PO ANXIETY / AGITATION 01/09/21 17:15 01/09/21 17:46 DC Lorazepam (Ativan Intensol) 0.25 mg PRN TID PRN PO ANXIETY / AGITATION 01/09/21 17:45 Trazodone HCl (Desyrel) 50 mg 1445 ONCE PO 01/11/21 14:45 01/11/21 14:54 DC Mirtazapine (Remeron) 7.5 mg QHS PO 01/11/21 21:00 01/13/21 20:11 I have reviewed the current psychotropics carefully including drug interactions. Risk benefit ratio favors no change other than as noted in my dictated progress note. Diagnosis: Problems: (1) Dementia in Alzheimer's disease with depression (2) Dementia in Alzheimer's disease with delusions (3) Dementia of the Alzheimer's type with early onset with behavioral di sturbance (4) Major neurocognitive disorder (5) Impulse control disorder, unspecified (6) Anxiety disorder, unspecified (7) Dementia, vascular, with depression (8) Dementia, vascular, with delusions OFE MONTENEGRO MD Jan 13, 2021 22:49
[2021-01-14 06:05] VITALS: BP 129/55
[2021-01-14] MEDS: POTASSIUM CHLORIDE 20 MEQ TABLET.ER. PO SCH ×2 (08:10→21:52)
[2021-01-14] MEDS: FUROSEMIDE 40 MG TABLET PO SCH (08:10)
[2021-01-14] MEDS: METOPROLOL TART IMMED RELEASE 50 MG TABLET PO SCH ×3 (08:11→22:21)
[2021-01-14] MEDS: SERTRALINE 50 MG TABLET. PO SCH (08:11)
[2021-01-14] MEDS: risperiDONE 0.25 MG TABLET. PO SCH (08:11)
[2021-01-14] MEDS: POLYETHYLENE GLYCOL 3350 17 GM PACKET. PO SCH (08:12)
--- NOTE | 2021-01-14 09:26 | PDOC ---
Exam Note: Devang Note: This note is a late entry for 01/12/2021 covers elements not covered in my initial note. Subjective: The patient was seen on telehealth rounds in the afternoon of 01/12/2021 with the nursing staff taking the telehealth camera to each patient, which was on a secure portal, discussed and reviewed the chart with Hyun MARIANO. The patient slept 4-3/4 hours previous night. She is somewhat paranoid, at meal times confused. Appetite is 85%. At times she is louder, hyperverbal, but less psychotic. Review of Systems: Ambulation impaired with walker. No CV, , pulmonary, eye system symptoms on review. Reliability poor. Mental Status Exam: The patient is oriented to herself. Insight and judgment, recent and remote memory, attention and concentration is poor consistent with her diagnoses. Laboratory Data: Reviewed. Impression: Major neurocognitive disorder Alzheimer vascular with delusion, depression, and behavioral disturbance. Anxiety disorder unspecified. Impulse control disorder unspecified. Plan: Continue psychotropics as noted above. Assessment: Vital Signs/I&O: Vital Signs Date Time Temp Pulse Resp B/P (MAP) Pulse Ox O2 Delivery O2 Flow Rate FiO2 01/14/21 08:11 67 129/55 01/14/21 06:05 97.5 18 96 Room Air I & O 0 01/13/21 01/13/21 01/14/21 15:00 23:00 07:00 Intake Total 600 ml 600 ml Balance 600 ml 600 ml Current Medications: Meds: Current Medications Medications (Trade) Dose Ordered Sig/Marguerite Route PRN Reason Start Time Stop Time Status Last Admin Dose Admin Potassium Chloride (Klor-Con) 40 meq 1X ONCE PO 01/04/21 19:00 01/04/21 19:07 DC 01/04/21 19:16 Acetaminophen (Tylenol) 500 mg PRN Q12HR PRN PO PAIN 01/04/21 23:00 Cancel Atorvastatin Calcium (Lipitor) 10 mg QHS PO 01/05/21 21:00 01/13/21 20:11 Furosemide (Lasix) 40 mg DAILY PO 01/05/21 09:00 01/14/21 08:10 Metoprolol Tartrate (Lopressor) 50 mg BID PO 01/05/21 09:00 01/14/21 08:11 Potassium Chloride (Klor-Con) 20 meq DAILY PO 01/05/21 09:00 01/11/21 15:00 DC 01/11/21 08:57 Polyethylene Glycol (miraLAX) 17 gm DAILY PO 01/05/21 09:00 01/14/21 08:12 Lorazepam (Ativan) 1 mg PRN Q4HRS PRN PO ANXIETY / AGITATION 01/04/21 23:00 01/09/21 10:42 DC 01/07/21 23:07 Lorazepam (Ativan Intensol) 1 mg PRN Q6HRS PRN PO ANXIETY / AGITATION 01/04/21 23:00 01/09/21 17:03 DC Risperidone (RisperDAL) 0.25 mg DAILY PO 01/05/21 09:00 01/14/21 08:11 Risperidone (RisperDAL) 0.5 mg QHS PO 01/05/21 21:00 01/08/21 17:27 DC 01/07/21 20:28 Melatonin (Melatonin) 6 mg HS PO 01/05/21 21:00 01/08/21 17:27 DC 01/07/21 20:28 Acetaminophen (Tylenol) 650 mg PRN Q6HRS PRN PO MILD PAIN / TEMP > 100.3'F 01/04/21 22:45 01/05/21 08:40 Multi-Ingredient Ointment (Analgesic [place]) 1 abby PRN QID PRN TP MUSCLE PAIN 01/04/21 22:45 Al Hydroxide/Mg Hydroxide (Mylanta Plus Xs) 15 ml PRN AFTMEALHC PRN PO DYSPEPSIA 01/04/21 22:45 Magnesium Hydroxide (Milk Of Magnesia) 2,400 mg PRN QHS PRN PO CONSTIPATION 01/04/21 22:45 Potassium Chloride (Klor-Con) 40 meq 1X ONCE PO 01/05/21 15:45 01/05/21 15:49 DC 01/05/21 17:29 Potassium Chloride (Klor-Con) 20 meq BID PO 01/05/21 21:00 01/14/21 08:10 Sertraline HCl (Zoloft) 25 mg DAILY PO 01/07/21 09:00 01/09/21 18:00 DC 01/09/21 08:24 Sertraline HCl (Zoloft) 50 mg DAILY PO 01/10/21 09:00 01/14/21 08:11 Melatonin (Melatonin) 3 mg HS PO 01/08/21 21:00 01/13/21 20:12 Trazodone HCl (Desyrel) 50 mg PRN QHS PRN PO INSOMNIA MRX1 01/08/21 17:30 01/13/21 20:10 Risperidone (RisperDAL) 1 mg QHS PO 01/08/21 21:00 01/08/21 19:47 DC Olanzapine (ZyPREXA ZYDIS) 2.5 mg PRN Q2HRS PRN PO PSYCHOSIS 01/08/21 19:45 01/14/21 02:30 Risperidone (RisperDAL) 0.5 mg HS PO 01/08/21 21:00 01/08/21 19:58 DC Risperidone (RisperDAL) 0.25 mg HS PO 01/08/21 20:00 01/08/21 20:01 DC Risperidone (RisperDAL) 0.25 mg HS PO 01/08/21 21:00 01/13/21 20:11 Lorazepam (Ativan Intensol) 0.25 mg PRN Q6HRS PRN PO ANXIETY / AGITATION 01/09/21 17:15 01/09/21 17:46 DC Lorazepam (Ativan Intensol) 0.25 mg PRN TID PRN PO ANXIETY / AGITATION 01/09/21 17:45 Trazodone HCl (Desyrel) 50 mg 1445 ONCE PO 01/11/21 14:45 01/11/21 14:54 DC Mirtazapine (Remeron) 7.5 mg QHS PO 01/11/21 21:00 01/13/21 20:11 I have reviewed the current psychotropics carefully including drug interactions. Risk benefit ratio favors no change other than as noted in my dictated progress note. 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
[2021-01-14 16:49] VITALS: BP 106/64
[2021-01-14] MEDS: risperiDONE 0.5 MG TABLET. PO SCH (21:50)
[2021-01-14] MEDS: traZODone 50 MG TABLET. PO PRN (21:50)
[2021-01-14] MEDS: ATORVASTATIN CALCIUM 10 MG TABLET. PO SCH (21:52)
[2021-01-14] MEDS: MIRTAZAPINE 7.5 MG TABLET. PO SCH (21:52)
[2021-01-14] MEDS: MELATONIN 3 MG TABLET PO SCH (21:52)
--- NOTE | 2021-01-14 22:15 | PDOC ---
Exam Note: Devang Note: Please also refer to the separate dictated note~for this date of service dictated separately.~Patient seen individually. Discussed the patient with Nursing staff reviewed the chart.~Reviewed interim history and current functioning. Reviewed vital signs,~Labs/ Radiology~and current medications noted below. Continue current treatment with the changes noted in the dictated addendum note Assessment: Vital Signs/I&O: Vital Signs Date Time Temp Pulse Resp B/P (MAP) Pulse Ox O2 Delivery O2 Flow Rate FiO2 01/14/21 16:49 97.7 65 16 106/64 (78) 96 Room Air I & O 01/13/21 01/13/21 01/14/21 15:00 23:00 07:00 Intake Total 600 ml 600 ml Balance 600 ml 600 ml Current Medications: Meds: Current Medications Medications (Trade) Dose Ordered Sig/Marguerite Route PRN Reason Start Time Stop Time Status Last Admin Dose Admin Potassium Chloride (Klor-Con) 40 meq 1X ONCE PO 01/04/21 19:00 01/04/21 19:07 DC 01/04/21 19:16 Acetaminophen (Tylenol) 500 mg PRN Q12HR PRN PO PAIN 01/04/21 23:00 Cancel Atorvastatin Calcium (Lipitor) 10 mg QHS PO 01/05/21 21:00 01/14/21 21:52 Furosemide (Lasix) 40 mg DAILY PO 01/05/21 09:00 01/14/21 08:10 Metoprolol Tartrate (Lopressor) 50 mg BID PO 01/05/21 09:00 01/14/21 08:11 Potassium Chloride (Klor-Con) 20 meq DAILY PO 01/05/21 09:00 01/11/21 15:00 DC 01/11/21 08:57 Polyethylene Glycol (miraLAX) 17 gm DAILY PO 01/05/21 09:00 01/14/21 08:12 Lorazepam (Ativan) 1 mg PRN Q4HRS PRN PO ANXIETY / AGITATION 01/04/21 23:00 01/09/21 10:42 DC 01/07/21 23:07 Lorazepam (Ativan Intensol) 1 mg PRN Q6HRS PRN PO ANXIETY / AGITATION 01/04/21 23:00 01/09/21 17:03 DC Risperidone (RisperDAL) 0.25 mg DAILY PO 01/05/21 09:00 01/14/21 08:11 Risperidone (RisperDAL) 0.5 mg QHS PO 01/05/21 21:00 01/08/21 17:27 DC 01/07/21 20:28 Melatonin (Melatonin) 6 mg HS PO 01/05/21 21:00 01/08/21 17:27 DC 01/07/21 20:28 Acetaminophen (Tylenol) 650 mg PRN Q6HRS PRN PO MILD PAIN / TEMP > 100.3'F 01/04/21 22:45 01/05/21 08:40 Multi-Ingredient Ointment (Analgesic [place]) 1 abby PRN QID PRN TP MUSCLE PAIN 01/04/21 22:45 Al Hydroxide/Mg Hydroxide (Mylanta Plus Xs) 15 ml PRN AFTMEALHC PRN PO DYSPEPSIA 01/04/21 22:45 Magnesium Hydroxide (Milk Of Magnesia) 2,400 mg PRN QHS PRN PO CONSTIPATION 01/04/21 22:45 Potassium Chloride (Klor-Con) 40 meq 1X ONCE PO 01/05/21 15:45 01/05/21 15:49 DC 01/05/21 17:29 Potassium Chloride (Klor-Con) 20 meq BID PO 01/05/21 21:00 01/14/21 21:52 Sertraline HCl (Zoloft) 25 mg DAILY PO 01/07/21 09:00 01/09/21 18:00 DC 01/09/21 08:24 Sertraline HCl (Zoloft) 50 mg DAILY PO 01/10/21 09:00 01/14/21 11:10 DC 01/14/21 08:11 Melatonin (Melatonin) 3 mg HS PO 01/08/21 21:00 01/14/21 21:52 Trazodone HCl (Desyrel) 50 mg PRN QHS PRN PO INSOMNIA MRX1 01/08/21 17:30 01/14/21 21:50 Risperidone (RisperDAL) 1 mg QHS PO 01/08/21 21:00 01/08/21 19:47 DC Olanzapine (ZyPREXA ZYDIS) 2.5 mg PRN Q2HRS PRN PO PSYCHOSIS 01/08/21 19:45 01/14/21 02:30 Risperidone (RisperDAL) 0.5 mg HS PO 01/08/21 21:00 01/08/21 19:58 DC Risperidone (RisperDAL) 0.25 mg HS PO 01/08/21 20:00 01/08/21 20:01 DC Risperidone (RisperDAL) 0.25 mg HS PO 01/08/21 21:00 01/14/21 11:11 DC 01/13/21 20:11 Lorazepam (Ativan Intensol) 0.25 mg PRN Q6HRS PRN PO ANXIETY / AGITATION 01/09/21 17:15 01/09/21 17:46 DC Lorazepam (Ativan Intensol) 0.25 mg PRN TID PRN PO ANXIETY / AGITATION 01/09/21 17:45 Trazodone HCl (Desyrel) 50 mg 1445 ONCE PO 01/11/21 14:45 01/11/21 14:54 DC Mirtazapine (Remeron) 7.5 mg QHS PO 01/11/21 21:00 01/14/21 21:52 Sertraline HCl (Zoloft) 75 mg DAILY PO 01/15/21 09:00 Risperidone (RisperDAL) 0.5 mg QHS PO 01/14/21 21:00 01/14/21 21:50 Current Medications Medications (Trade) Dose Ordered Sig/Marguerite Route PRN Reason Start Time Stop Time Status Last Admin Dose Admin Risperidone (RisperDAL) 0.5 mg QHS PO 01/14/21 21:00 01/14/21 21:50 I have reviewed the current psychotropics carefully including drug interactions. Risk benefit ratio favors no change other than as noted in my dictated progress note. 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
[2021-01-15] MEDS: traZODone 50 MG TABLET. PO PRN (02:00)
[2021-01-15 06:11] VITALS: BP 158/55
[2021-01-15] MEDS: POLYETHYLENE GLYCOL 3350 17 GM PACKET. PO SCH (08:17)
[2021-01-15] MEDS: SERTRALINE 25 MG TABLET. PO SCH (08:17)
[2021-01-15] MEDS: FUROSEMIDE 40 MG TABLET PO SCH (08:17)
[2021-01-15] MEDS: METOPROLOL TART IMMED RELEASE 50 MG TABLET PO SCH ×2 (08:18→21:30)
[2021-01-15] MEDS: risperiDONE 0.25 MG TABLET. PO SCH (08:18)
[2021-01-15] MEDS: POTASSIUM CHLORIDE 20 MEQ TABLET.ER. PO SCH ×2 (08:19→21:21)
[2021-01-15 16:11] VITALS: BP 112/66
[2021-01-15] MEDS: ATORVASTATIN CALCIUM 10 MG TABLET. PO SCH (21:21)
[2021-01-15] MEDS: MIRTAZAPINE 7.5 MG TABLET. PO SCH (21:21)
[2021-01-15] MEDS: MELATONIN 3 MG TABLET PO SCH (21:21)
[2021-01-15] MEDS: risperiDONE 0.5 MG TABLET. PO SCH (21:22)
--- NOTE | 2021-01-15 22:18 | PDOC ---
Exam Note: Devang Note: This note is a late entry for 01/13/2021 covers elements not covered in my initial note. Subjective: The patient was seen on telehealth rounds in the afternoon of 01/13/2021 as an option during the COVID-19 pandemic period with Krysta MARIANO, discussed and reviewed the chart. The patient slept 7 hours previous night. She is resistive to medications. She takes it in pudding. She slept in the Quiet room up to 1 a.m. Received trazodone h.s. p.r.n. She remains somewhat paranoid. We will consider adjusting Risperdal as clinically indicated. Review of Systems: Ambulation impaired with walker. No CV, , pulmonary, eye system symptoms on review. Reliability poor. Mental Status Exam: The patient is oriented to herself. Insight and judgment, recent and remote memory, attention and concentration is poor consistent with her diagnoses. Laboratory Data: Reviewed. Impression: Major neurocognitive disorder Alzheimer vascular with delusion, depression, and behavioral disturbance. Anxiety disorder unspecified. Impulse control disorder unspecified. Plan: Continue psychotropics as noted above. Assessment: Vital Signs/I&O: Vital Signs Date Time Temp Pulse Resp B/P (MAP) Pulse Ox O2 Delivery O2 Flow Rate FiO2 01/15/21 21:30 67 112/55 01/15/21 16:11 98.0 18 98 01/14/21 16:49 Room Air I & O 01/14/21 01/14/21 01/15/21 15:00 23:00 07:00 Intake Total 480 ml 240 ml 240 ml Balance 480 ml 240 ml 240 ml Current Medications: Meds: Current Medications Medications (Trade) Dose Ordered Sig/Marguerite Route PRN Reason Start Time Stop Time Status Last Admin Dose Admin Potassium Chloride (Klor-Con) 40 meq 1X ONCE PO 01/04/21 19:00 01/04/21 19:07 DC 01/04/21 19:16 Acetaminophen (Tylenol) 500 mg PRN Q12HR PRN PO PAIN 01/04/21 23:00 Cancel Atorvastatin Calcium (Lipitor) 10 mg QHS PO 01/05/21 21:00 01/15/21 21:21 Furosemide (Lasix) 40 mg DAILY PO 01/05/21 09:00 01/15/21 08:17 Metoprolol Tartrate (Lopressor) 50 mg BID PO 01/05/21 09:00 01/15/21 21:30 Potassium Chloride (Klor-Con) 20 meq DAILY PO 01/05/21 09:00 01/11/21 15:00 DC 01/11/21 08:57 Polyethylene Glycol (miraLAX) 17 gm DAILY PO 01/05/21 09:00 01/15/21 08:17 Lorazepam (Ativan) 1 mg PRN Q4HRS PRN PO ANXIETY / AGITATION 01/04/21 23:00 01/09/21 10:42 DC 01/07/21 23:07 Lorazepam (Ativan Intensol) 1 mg PRN Q6HRS PRN PO ANXIETY / AGITATION 01/04/21 23:00 01/09/21 17:03 DC Risperidone (RisperDAL) 0.25 mg DAILY PO 01/05/21 09:00 01/15/21 08:18 Risperidone (RisperDAL) 0.5 mg QHS PO 01/05/21 21:00 01/08/21 17:27 DC 01/07/21 20:28 Melatonin (Melatonin) 6 mg HS PO 01/05/21 21:00 01/08/21 17:27 DC 01/07/21 20:28 Acetaminophen (Tylenol) 650 mg PRN Q6HRS PRN PO MILD PAIN / TEMP > 100.3'F 01/04/21 22:45 01/05/21 08:40 Multi-Ingredient Ointment (Analgesic [place]) 1 abby PRN QID PRN TP MUSCLE PAIN 01/04/21 22:45 Al Hydroxide/Mg Hydroxide (Mylanta Plus Xs) 15 ml PRN AFTMEALHC PRN PO DYSPEPSIA 01/04/21 22:45 Magnesium Hydroxide (Milk Of Magnesia) 2,400 mg PRN QHS PRN PO CONSTIPATION 01/04/21 22:45 Potassium Chloride (Klor-Con) 40 meq 1X ONCE PO 01/05/21 15:45 01/05/21 15:49 DC 01/05/21 17:29 Potassium Chloride (Klor-Con) 20 meq BID PO 01/05/21 21:00 01/15/21 21:21 Sertraline HCl (Zoloft) 25 mg DAILY PO 01/07/21 09:00 01/09/21 18:00 DC 01/09/21 08:24 Sertraline HCl (Zoloft) 50 mg DAILY PO 01/10/21 09:00 01/14/21 11:10 DC 01/14/21 08:11 Melatonin (Melatonin) 3 mg HS PO 01/08/21 21:00 01/15/21 21:21 Trazodone HCl (Desyrel) 50 mg PRN QHS PRN PO INSOMNIA MRX1 01/08/21 17:30 01/15/21 02:00 Risperidone (RisperDAL) 1 mg QHS PO 01/08/21 21:00 01/08/21 19:47 DC Olanzapine (ZyPREXA ZYDIS) 2.5 mg PRN Q2HRS PRN PO PSYCHOSIS 01/08/21 19:45 01/14/21 02:30 Risperidone (RisperDAL) 0.5 mg HS PO 01/08/21 21:00 01/08/21 19:58 DC Risperidone (RisperDAL) 0.25 mg HS PO 01/08/21 20:00 01/08/21 20:01 DC Risperidone (RisperDAL) 0.25 mg HS PO 01/08/21 21:00 01/14/21 11:11 DC 01/13/21 20:11 Lorazepam (Ativan Intensol) 0.25 mg PRN Q6HRS PRN PO ANXIETY / AGITATION 01/09/21 17:15 01/09/21 17:46 DC Lorazepam (Ativan Intensol) 0.25 mg PRN TID PRN PO ANXIETY / AGITATION 01/09/21 17:45 Trazodone HCl (Desyrel) 50 mg 1445 ONCE PO 01/11/21 14:45 01/11/21 14:54 DC Mirtazapine (Remeron) 7.5 mg QHS PO 01/11/21 21:00 01/15/21 21:21 Sertraline HCl (Zoloft) 75 mg DAILY PO 01/15/21 09:00 01/15/21 08:17 Risperidone (RisperDAL) 0.5 mg QHS PO 01/14/21 21:00 01/15/21 21:22 Current Medications Medications (Trade) Dose Ordered Sig/Marguerite Route PRN Reason Start Time Stop Time Status Last Admin Dose Admin Sertraline HCl (Zoloft) 75 mg DAILY PO 01/15/21 09:00 01/15/21 08:17 I have reviewed the current psychotropics carefully including drug interactions. Risk benefit ratio favors no change other than as noted in my dictated progress note. Diagnosis: Problems: (1) Dementia in Alzheimer's disease with depression (2) Dementia in Alzheimer's disease with delusions (3) Dementia of the Alzheimer's type with early onset with behavioral d isturbance (4) Major neurocognitive disorder (5) Impulse control disorder, unspecified (6) Anxiety disorder, unspecified (7) Dementia, vascular, with depression (8) Dementia, vascular, with delusions OFE MONTENEGRO MD Jan 15, 2021 22:18
--- NOTE | 2021-01-15 22:44 | PDOC ---
Exam Note: Devang Note: This note is a late entry for 01/14/2021 covers elements not covered in my initial note. Subjective: The patient was reviewed on telehealth rounds in the morning of 01/14/2021 as an option during the COVID-19 pandemic period for a treatment team meeting with Karli Villegas, Alejandra Pena (school social worker), Judith, activity therapy and Krysta MARIANO, discussed and reviewed the chart. We discussed the patients diagnoses, progress, current psychotropics, reviewed drug interactions, risk-benefit ratio of current psychotropics. The patient slept 4- 1/4 hours previous night. She became agitated last evening, paranoid. Received Zyprexa at 2.30 early this morning, labile, sarcastic at times. She called one of the nursing aids with a derogatory negative physical comments. Couple of days back she was found crawling on the floor out of the wheelchair. Review of Systems: Ambulation impaired. No CV, , pulmonary, eye system symptoms on review. Reliability poor. Mental Status Exam: The patient is oriented to herself. Insight and judgment, recent and remote memory, attention and concentration is poor consistent with her diagnoses. Laboratory Data: Reviewed. Impression: Major neurocognitive disorder Alzheimer vascular with delusion, depression, and behavioral disturbance. Anxiety disorder unspecified. Impulse control disorder unspecified. Plan: Continue psychotropics as noted above. Risperdal is currently 0.25 mg b.i.d. We will increase to 0.25 mg a.m. and 0.5 mg h.s. Increase Zoloft from 50 mg a day to 75 mg a day for her mood and anxiety symptoms. Assessment: Vital Signs/I&O: Vital Signs Date Time Temp Pulse Resp B/P (MAP) Pulse Ox O2 Delivery O2 Flow Rate FiO2 01/15/21 21:30 67 112/55 01/15/21 16:11 98.0 18 98 01/14/21 16:49 Room Air I & O 01/14/21 01/14/21 01/15/21 15:00 23:00 07:00 Intake Total 480 ml 240 ml 240 ml Balance 480 ml 240 ml 240 ml Current Medications: Meds: Current Medications Medications (Trade) Dose Ordered Sig/Marguerite Route PRN Reason Start Time Stop Time Status Last Admin Dose Admin Potassium Chloride (Klor-Con) 40 meq 1X ONCE PO 01/04/21 19:00 01/04/21 19:07 DC 01/04/21 19:16 Acetaminophen (Tylenol) 500 mg PRN Q12HR PRN PO PAIN 01/04/21 23:00 Cancel Atorvastatin Calcium (Lipitor) 10 mg QHS PO 01/05/21 21:00 01/15/21 21:21 Furosemide (Lasix) 40 mg DAILY PO 01/05/21 09:00 01/15/21 08:17 Metoprolol Tartrate (Lopressor) 50 mg BID PO 01/05/21 09:00 01/15/21 21:30 Potassium Chloride (Klor-Con) 20 meq DAILY PO 01/05/21 09:00 01/11/21 15:00 DC 01/11/21 08:57 Polyethylene Glycol (miraLAX) 17 gm DAILY PO 01/05/21 09:00 01/15/21 08:17 Lorazepam (Ativan) 1 mg PRN Q4HRS PRN PO ANXIETY / AGITATION 01/04/21 23:00 01/09/21 10:42 DC 01/07/21 23:07 Lorazepam (Ativan Intensol) 1 mg PRN Q6HRS PRN PO ANXIETY / AGITATION 01/04/21 23:00 01/09/21 17:03 DC Risperidone (RisperDAL) 0.25 mg DAILY PO 01/05/21 09:00 01/15/21 08:18 Risperidone (RisperDAL) 0.5 mg QHS PO 01/05/21 21:00 01/08/21 17:27 DC 01/07/21 20:28 Melatonin (Melatonin) 6 mg HS PO 01/05/21 21:00 01/08/21 17:27 DC 01/07/21 20:28 Acetaminophen (Tylenol) 650 mg PRN Q6HRS PRN PO MILD PAIN / TEMP > 100.3'F 01/04/21 22:45 01/05/21 08:40 Multi-Ingredient Ointment (Analgesic [place]) 1 abby PRN QID PRN TP MUSCLE PAIN 01/04/21 22:45 Al Hydroxide/Mg Hydroxide (Mylanta Plus Xs) 15 ml PRN AFTMEALHC PRN PO DYSPEPSIA 01/04/21 22:45 Magnesium Hydroxide (Milk Of Magnesia) 2,400 mg PRN QHS PRN PO CONSTIPATION 01/04/21 22:45 Potassium Chloride (Klor-Con) 40 meq 1X ONCE PO 01/05/21 15:45 01/05/21 15:49 DC 01/05/21 17:29 Potassium Chloride (Klor-Con) 20 meq BID PO 01/05/21 21:00 01/15/21 21:21 Sertraline HCl (Zoloft) 25 mg DAILY PO 01/07/21 09:00 01/09/21 18:00 DC 01/09/21 08:24 Sertraline HCl (Zoloft) 50 mg DAILY PO 01/10/21 09:00 01/14/21 11:10 DC 01/14/21 08:11 Melatonin (Melatonin) 3 mg HS PO 01/08/21 21:00 01/15/21 21:21 Trazodone HCl (Desyrel) 50 mg PRN QHS PRN PO INSOMNIA MRX1 01/08/21 17:30 01/15/21 02:00 Risperidone (RisperDAL) 1 mg QHS PO 01/08/21 21:00 01/08/21 19:47 DC Olanzapine (ZyPREXA ZYDIS) 2.5 mg PRN Q2HRS PRN PO PSYCHOSIS 01/08/21 19:45 01/14/21 02:30 Risperidone (RisperDAL) 0.5 mg HS PO 01/08/21 21:00 01/08/21 19:58 DC Risperidone (RisperDAL) 0.25 mg HS PO 01/08/21 20:00 01/08/21 20:01 DC Risperidone (RisperDAL) 0.25 mg HS PO 01/08/21 21:00 01/14/21 11:11 DC 01/13/21 20:11 Lorazepam (Ativan Intensol) 0.25 mg PRN Q6HRS PRN PO ANXIETY / AGITATION 01/09/21 17:15 01/09/21 17:46 DC Lorazepam (Ativan Intensol) 0.25 mg PRN TID PRN PO ANXIETY / AGITATION 01/09/21 17:45 Trazodone HCl (Desyrel) 50 mg 1445 ONCE PO 01/11/21 14:45 01/11/21 14:54 DC Mirtazapine (Remeron) 7.5 mg QHS PO 01/11/21 21:00 01/15/21 21:21 Sertraline HCl (Zoloft) 75 mg DAILY PO 01/15/21 09:00 01/15/21 08:17 Risperidone (RisperDAL) 0.5 mg QHS PO 01/14/21 21:00 01/15/21 21:22 Current Medications Medications (Trade) Dose Ordered Sig/Marguerite Route PRN Reason Start Time Stop Time Status Last Admin Dose Admin Sertraline HCl (Zoloft) 75 mg DAILY PO 01/15/21 09:00 01/15/21 08:17 I have reviewed the current psychotropics carefully including drug interactions. Risk benefit ratio favors no change other than as noted in my dictated progress note. Diagnosis: Problems: (1) Dementia in Alzheimer's disease with depression (2) Dementia in Alzheimer's disease with delusions (3) Dementia of the Alzheimer's type with early onset with behavioral disturbance (4) Major neurocognitive disorder (5) Impulse control disorder, unspecified (6) Anxiety disorder, unspecified (7) Dementia, vascular, with depression (8) Dementia, vascular, with delusions OFE MONTENEGRO MD Jan 15, 2021 22:44
--- NOTE | 2021-01-15 22:56 | PDOC ---
Exam Note: Devang Note: Please also refer to the separate dictated note~for this date of service dictated separately.~Patient seen individually. Discussed the patient with Nursing staff reviewed the chart.~Reviewed interim history and current functioning. Reviewed vital signs,~Labs/ Radiology~and current medications noted below. Continue current treatment with the changes noted in the dictated addendum note Assessment: Vital Signs/I&O: Vital Signs Date Time Temp Pulse Resp B/P (MAP) Pulse Ox O2 Delivery O2 Flow Rate FiO2 01/15/21 21:30 67 112/55 01/15/21 16:11 98.0 18 98 01/14/21 16:49 Room Air I & O 01/14/21 01/14/21 01/15/21 14:59 22:59 06:59 Intake Total 480 ml 240 ml 240 ml Balance 480 ml 240 ml 240 ml Current Medications: Meds: Current Medications Medications (Trade) Dose Ordered Sig/Marguerite Route PRN Reason Start Time Stop Time Status Last Admin Dose Admin Sertraline HCl (Zoloft) 75 mg DAILY PO 01/15/21 09:00 01/15/21 08:17 I have reviewed the current psychotropics carefully including drug interactions. Risk benefit ratio favors no change other than as noted in my dictated progress note. Diagnosis: Problems: (1) Dementia in Alzheimer's disease with depression (2) Dementia in Alzheimer's disease with delusions (3) Dementia of the Alzheimer's type with early onset with behavioral disturbance (4) Major neurocognitive disorder (5) Impulse control disorder, unspecified (6) Anxiety disorder, unspecified (7) Dementia, vascular, with depression (8) Dementia, vascular, with delusions OFE MONTENEGRO MD Jan 15, 2021 22:56
[2021-01-16 06:19] VITALS: BP 132/51
[2021-01-16] MEDS: SERTRALINE 25 MG TABLET. PO SCH (08:32)
[2021-01-16] MEDS: FUROSEMIDE 40 MG TABLET PO SCH (08:32)
[2021-01-16] MEDS: POLYETHYLENE GLYCOL 3350 17 GM PACKET. PO SCH (08:32)
[2021-01-16] MEDS: risperiDONE 0.25 MG TABLET. PO SCH (08:32)
[2021-01-16] MEDS: POTASSIUM CHLORIDE 20 MEQ TABLET.ER. PO SCH ×2 (08:32→21:13)
[2021-01-16] MEDS: METOPROLOL TART IMMED RELEASE 50 MG TABLET PO SCH ×2 (08:32→21:13)
[2021-01-16 15:49] VITALS: BP 117/70
[2021-01-16 15:50] LABS: BASO % 1 % (0-3); EOS # 0.5 x10^3/uL (0.0-0.7); EOS % 10 % (0-3); HEMATOCRIT 28.5 % (36.0-47.0); HEMOGLOBIN 9.6 g/dL (12.0-15.5); LYMPH # 0.9 x10^3/uL (1.0-4.8); LYMPH % 19 % (24-48); MEAN CORPUSCULAR HEMOGLOBIN 34 pg (25-35); MEAN CORPUSCULAR HGB CONC 34 g/dL (31-37); MEAN CORPUSCULAR VOLUME 100 fL (79-100); MONO # 0.6 x10^3/uL (0.0-1.1); MONO % 12 % (0-9); NEUT # 2.9 x10^3uL (1.8-7.7); NEUT % 59 % (31-73); PLATELET COUNT 256 x10^3/uL (140-400); RED BLOOD COUNT 2.85 x10^6/uL (3.50-5.40); RED CELL DISTRIBUTION WIDTH 16.2 % (11.5-14.5)
[2021-01-16 15:57] LABS: ALBUMIN 3.4 g/dL (3.4-5.0); ALBUMIN/GLOBULIN RATIO 0.9 (1.0-1.7); CALCIUM 8.4 mg/dL (8.5-10.1); CREATININE 1.1 mg/dL (0.6-1.0); GFR 47.1; POTASSIUM 4.4 mmol/L (3.5-5.1); TOTAL BILIRUBIN 0.4 mg/dL (0.2-1.0)
[2021-01-16] MEDS: traZODone 50 MG TABLET. PO PRN (21:12)
[2021-01-16] MEDS: risperiDONE 0.5 MG TABLET. PO SCH (21:12)
[2021-01-16] MEDS: MELATONIN 3 MG TABLET PO SCH (21:13)
[2021-01-16] MEDS: ATORVASTATIN CALCIUM 10 MG TABLET. PO SCH (21:13)
[2021-01-16] MEDS: MIRTAZAPINE 7.5 MG TABLET. PO SCH (21:13)
--- NOTE | 2021-01-16 22:36 | PDOC ---
Exam Note: Devang Note: Please also refer to the separate dictated note~for this date of service dictated separately.~Patient seen individually. Discussed the patient with Nursing staff reviewed the chart.~Reviewed interim history and current functioning. Reviewed vital signs,~Labs/ Radiology~and current medications noted below. Continue current treatment with the changes noted in the dictated addendum note Assessment: Vital Signs/I&O: Vital Signs Date Time Temp Pulse Resp B/P (MAP) Pulse Ox O2 Delivery O2 Flow Rate FiO2 01/16/21 21:13 72 117/70 01/16/21 15:49 97.8 18 97 01/16/21 06:19 Room Air I & O 01/15/21 01/15/21 01/16/21 15:00 23:00 07:00 Intake Total 600 ml 480 ml Balance 600 ml 480 ml Labs: Laboratory Tests Test 01/16/21 15:25 White Blood Count 5.0 x10^3/uL (4.0-11.0) Red Blood Count 2.85 x10^6/uL (3.50-5.40) L Hemoglobin 9.6 g/dL (12.0-15.5) L Hematocrit 28.5 % (36.0-47.0) L Mean Corpuscular Volume 100 fL (79-100) Mean Corpuscular Hemoglobin 34 pg (25-35) Mean Corpuscular Hemoglobin Concent 34 g/dL (31-37) Red Cell Distribution Width 16.2 % (11.5-14.5) H Platelet Count 256 x10^3/uL (140-400) Neutrophils (%) (Auto) 59 % (31-73) Lymphocytes (%) (Auto) 19 % (24-48) L Monocytes (%) (Auto) 12 % (0-9) H Eosinophils (%) (Auto) 10 % (0-3) H Basophils (%) (Auto) 1 % (0-3) Neutrophils # (Auto) 2.9 x10^3uL (1.8-7.7) Lymphocytes # (Auto) 0.9 x10^3/uL (1.0-4.8) L Monocytes # (Auto) 0.6 x10^3/uL (0.0-1.1) Eosinophils # (Auto) 0.5 x10^3/uL (0.0-0.7) Basophils # (Auto) 0.0 x10^3/uL (0.0-0.2) Sodium Level 142 mmol/L (136-145) Potassium Level 4.4 mmol/L (3.5-5.1) Chloride Level 104 mmol/L (98-107) Carbon Dioxide Level 32 mmol/L (21-32) Anion Gap 6 (6-14) Blood Urea Nitrogen 35 mg/dL (7-20) H Creatinine 1.1 mg/dL (0.6-1.0) H Estimated GFR (Cockcroft-Gault) 47.1 BUN/Creatinine Ratio 32 (6-20) H Glucose Level 94 mg/dL (70-99) Calcium Level 8.4 mg/dL (8.5-10.1) L Total Bilirubin 0.4 mg/dL (0.2-1.0) Aspartate Amino Transferase (AST) 18 U/L (15-37) Alanine Aminotransferase (ALT) 26 U/L (14-59) Alkaline Phosphatase 58 U/L (46-116) Total Protein 7.0 g/dL (6.4-8.2) Albumin 3.4 g/dL (3.4-5.0) Albumin/Globulin Ratio 0.9 (1.0-1.7) L Current Medications: I have reviewed the current psychotropics carefully including drug interactions. Risk benefit ratio favors no change other than as noted in my dictated progress note. 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
[2021-01-17 05:53] VITALS: BP 149/64
[2021-01-17] MEDS: SERTRALINE 25 MG TABLET. PO SCH (08:31)
[2021-01-17] MEDS: POLYETHYLENE GLYCOL 3350 17 GM PACKET. PO SCH (08:31)
[2021-01-17] MEDS: METOPROLOL TART IMMED RELEASE 50 MG TABLET PO SCH ×2 (08:31→19:38)
[2021-01-17] MEDS: POTASSIUM CHLORIDE 20 MEQ TABLET.ER. PO SCH ×2 (08:32→19:40)
[2021-01-17] MEDS: risperiDONE 0.25 MG TABLET. PO SCH (08:32)
[2021-01-17] MEDS: FUROSEMIDE 40 MG TABLET PO SCH (08:32)
--- NOTE | 2021-01-17 09:35 | PDOC ---
Exam Note: Devang Note: This note is a late entry for 01/15/2021 covers elements not covered in my initial note. Subjective: The patient was seen on telehealth rounds in the afternoon of 01/15/2021 as an option during the COVID-19 pandemic period with Krysta MARIANO, discussed and reviewed the chart. The patient slept 5-1/2 hours previous night. She was up at night, confused, believed male nursing staff at night was her son. Received trazodone x2, irritable at times. Review of Systems: Ambulation impaired. No CV, , pulmonary, eye system symptoms on review. Reliability poor. Mental Status Exam: The patient is oriented to herself. Insight and judgment, recent and remote memory, attention and concentration is poor consistent with her diagnoses. Laboratory Data: Reviewed. Impression: Major neurocognitive disorder Alzheimer vascular with delusion, depression, and behavioral disturbance. Anxiety disorder unspecified. Impulse control disorder unspecified. Plan: We will adjust psychotropics as clinically indicated. Assessment: Vital Signs/I&O: Vital Signs Date Time Temp Pulse Resp B/P (MAP) Pulse Ox O2 Delivery O2 Flow Rate FiO2 01/17/21 08:31 65 149/64 01/17/21 05:53 97.9 18 95 01/16/21 06:19 Room Air I & O 01/16/21 01/16/21 01/17/21 15:00 23:00 07:00 Intake Total 720 ml 600 ml Balance 720 ml 600 ml Labs: Laboratory Tests Test 01/16/21 15:25 White Blood Count 5.0 x10^3/uL (4.0-11.0) Red Blood Count 2.85 x10^6/uL (3.50-5.40) L Hemoglobin 9.6 g/dL (12.0-15.5) L Hematocrit 28.5 % (36.0-47.0) L Mean Corpuscular Volume 100 fL (79-100) Mean Corpuscular Hemoglobin 34 pg (25-35) Mean Corpuscular Hemoglobin Concent 34 g/dL (31-37) Red Cell Distribution Width 16.2 % (11.5-14.5) H Platelet Count 256 x10^3/uL (140-400) Neutrophils (%) (Auto) 59 % (31-73) Lymphocytes (%) (Auto) 19 % (24-48) L Monocytes (%) (Auto) 12 % (0-9) H Eosinophils (%) (Auto) 10 % (0-3) H Basophils (%) (Auto) 1 % (0-3) Neutrophils # (Auto) 2.9 x10^3uL (1.8-7.7) Lymphocytes # (Auto) 0.9 x10^3/uL (1.0-4.8) L Monocytes # (Auto) 0.6 x10^3/uL (0.0-1.1) Eosinophils # (Auto) 0.5 x10^3/uL (0.0-0.7) Basophils # (Auto) 0.0 x10^3/uL (0.0-0.2) Sodium Level 142 mmol/L (136-145) Potassium Level 4.4 mmol/L (3.5-5.1) Chloride Level 104 mmol/L (98-107) Carbon Dioxide Level 32 mmol/L (21-32) Anion Gap 6 (6-14) Blood Urea Nitrogen 35 mg/dL (7-20) H Creatinine 1.1 mg/dL (0.6-1.0) H Estimated GFR (Cockcroft-Gault) 47.1 BUN/Creatinine Ratio 32 (6-20) H Glucose Level 94 mg/dL (70-99) Calcium Level 8.4 mg/dL (8.5-10.1) L Total Bilirubin 0.4 mg/dL (0.2-1.0) Aspartate Amino Transferase (AST) 18 U/L (15-37) Alanine Aminotransferase (ALT) 26 U/L (14-59) Alkaline Phosphatase 58 U/L (46-116) Total Protein 7.0 g/dL (6.4-8.2) Albumin 3.4 g/dL (3.4-5.0) Albumin/Globulin Ratio 0.9 (1.0-1.7) L Current Medications: Meds: Laboratory Tests Test 01/16/21 15:25 White Blood Count 5.0 x10^3/uL Red Blood Count 2.85 x10^6/uL Hemoglobin 9.6 g/dL Hematocrit 28.5 % Mean Corpuscular Volume 100 fL Mean Corpuscular Hemoglobin 34 pg Mean Corpuscular Hemoglobin Concent 34 g/dL Red Cell Distribution Width 16.2 % Platelet Count 256 x10^3/uL Neutrophils (%) (Auto) 59 % Lymphocytes (%) (Auto) 19 % Monocytes (%) (Auto) 12 % Eosinophils (%) (Auto) 10 % Basophils (%) (Auto) 1 % Neutrophils # (Auto) 2.9 x10^3uL Lymphocytes # (Auto) 0.9 x10^3/uL Monocytes # (Auto) 0.6 x10^3/uL Eosinophils # (Auto) 0.5 x10^3/uL Basophils # (Auto) 0.0 x10^3/uL Sodium Level 142 mmol/L Potassium Level 4.4 mmol/L Chloride Level 104 mmol/L Carbon Dioxide Level 32 mmol/L Anion Gap 6 Blood Urea Nitrogen 35 mg/dL Creatinine 1.1 mg/dL Estimated GFR (Cockcroft-Gault) 47.1 BUN/Creatinine Ratio 32 Glucose Level 94 mg/dL Calcium Level 8.4 mg/dL Total Bilirubin 0.4 mg/dL Aspartate Amino Transf (AST/SGOT) 18 U/L Alanine Aminotransferase (ALT/SGPT) 26 U/L Alkaline Phosphatase 58 U/L Total Protein 7.0 g/dL Albumin 3.4 g/dL Albumin/Globulin Ratio 0.9 Current Medications Medications (Trade) Dose Ordered Sig/Marguerite Route PRN Reason Start Time Stop Time Status Last Admin Dose Admin Potassium Chloride (Klor-Con) 40 meq 1X ONCE PO 01/04/21 19:00 01/04/21 19:07 DC 01/04/21 19:16 Acetaminophen (Tylenol) 500 mg PRN Q12HR PRN PO PAIN 01/04/21 23:00 Cancel Atorvastatin Calcium (Lipitor) 10 mg QHS PO 01/05/21 21:00 01/16/21 21:13 Furosemide (Lasix) 40 mg DAILY PO 01/05/21 09:00 01/17/21 08:32 Metoprolol Tartrate (Lopressor) 50 mg BID PO 01/05/21 09:00 01/17/21 08:31 Potassium Chloride (Klor-Con) 20 meq DAILY PO 01/05/21 09:00 01/11/21 15:00 DC 01/11/21 08:57 Polyethylene Glycol (miraLAX) 17 gm DAILY PO 01/05/21 09:00 01/17/21 08:31 Lorazepam (Ativan) 1 mg PRN Q4HRS PRN PO ANXIETY / AGITATION 01/04/21 23:00 01/09/21 10:42 DC 01/07/21 23:07 Lorazepam (Ativan Intensol) 1 mg PRN Q6HRS PRN PO ANXIETY / AGITATION 01/04/21 23:00 01/09/21 17:03 DC Risperidone (RisperDAL) 0.25 mg DAILY PO 01/05/21 09:00 01/17/21 08:32 Risperidone (RisperDAL) 0.5 mg QHS PO 01/05/21 21:00 01/08/21 17:27 DC 01/07/21 20:28 Melatonin (Melatonin) 6 mg HS PO 01/05/21 21:00 01/08/21 17:27 DC 01/07/21 20:28 Acetaminophen (Tylenol) 650 mg PRN Q6HRS PRN PO MILD PAIN / TEMP > 100.3'F 01/04/21 22:45 01/05/21 08:40 Multi-Ingredient Ointment (Analgesic [place]) 1 abby PRN QID PRN TP MUSCLE PAIN 01/04/21 22:45 Al Hydroxide/Mg Hydroxide (Mylanta Plus Xs) 15 ml PRN AFTMEALHC PRN PO DYSPEPSIA 01/04/21 22:45 Magnesium Hydroxide (Milk Of Magnesia) 2,400 mg PRN QHS PRN PO CONSTIPATION 01/04/21 22:45 Potassium Chloride (Klor-Con) 40 meq 1X ONCE PO 01/05/21 15:45 01/05/21 15:49 DC 01/05/21 17:29 Potassium Chloride (Klor-Con) 20 meq BID PO 01/05/21 21:00 01/17/21 08:32 Sertraline HCl (Zoloft) 25 mg DAILY PO 01/07/21 09:00 01/09/21 18:00 DC 01/09/21 08:24 Sertraline HCl (Zoloft) 50 mg DAILY PO 01/10/21 09:00 01/14/21 11:10 DC 01/14/21 08:11 Melatonin (Melatonin) 3 mg HS PO 01/08/21 21:00 01/16/21 21:13 Trazodone HCl (Desyrel) 50 mg PRN QHS PRN PO INSOMNIA MRX1 01/08/21 17:30 01/16/21 21:12 Risperidone (RisperDAL) 1 mg QHS PO 01/08/21 21:00 01/08/21 19:47 DC Olanzapine (ZyPREXA ZYDIS) 2.5 mg PRN Q2HRS PRN PO PSYCHOSIS 01/08/21 19:45 01/16/21 17:00 Risperidone (RisperDAL) 0.5 mg HS PO 01/08/21 21:00 01/08/21 19:58 DC Risperidone (RisperDAL) 0.25 mg HS PO 01/08/21 20:00 01/08/21 20:01 DC Risperidone (RisperDAL) 0.25 mg HS PO 01/08/21 21:00 01/14/21 11:11 DC 01/13/21 20:11 Lorazepam (Ativan Intensol) 0.25 mg PRN Q6HRS PRN PO ANXIETY / AGITATION 01/09/21 17:15 01/09/21 17:46 DC Lorazepam (Ativan Intensol) 0.25 mg PRN TID PRN PO ANXIETY / AGITATION 01/09/21 17:45 Trazodone HCl (Desyrel) 50 mg 1445 ONCE PO 01/11/21 14:45 01/11/21 14:54 DC Mirtazapine (Remeron) 7.5 mg QHS PO 01/11/21 21:00 01/16/21 21:13 Sertraline HCl (Zoloft) 75 mg DAILY PO 01/15/21 09:00 01/17/21 08:31 Risperidone (RisperDAL) 0.5 mg QHS PO 01/14/21 21:00 01/16/21 21:12 I have reviewed the current psychotropics carefully including drug interactions. Risk benefit ratio favors no change other than as noted in my dictated progress note. 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
--- NOTE | 2021-01-17 09:56 | PDOC ---
Exam Note: Devang Note: This note is a late entry for 01/16/2021 covers elements not covered in my initial note. Subjective: The patient was seen on telehealth rounds in the afternoon of 01/16/2021 as an option during the COVID-19 pandemic period with Alannah MARIANO, discussed and reviewed the chart. The patient slept 5-1/2 hours previous night. She has been somewhat snappy, irritable, resistive to redirections. She states meds in cho. She thinks her birthday is today and has been arguing with others. Review of Systems: Ambulation impaired. No CV, , pulmonary, eye system symptoms on review. Mental Status Exam: The patient is oriented to herself. Insight and judgment, recent and remote memory, attention and concentration is poor consistent with her diagnoses. Laboratory Data: Reviewed. Impression: Major neurocognitive disorder Alzheimer vascular with delusion, depression, and behavioral disturbance. Anxiety disorder unspecified. Impulse control disorder unspecified. Plan: Continue psychotropics as noted above. Assessment: Vital Signs/I&O: Vital Signs Date Time Temp Pulse Resp B/P (MAP) Pulse Ox O2 Delivery O2 Flow Rate FiO2 01/17/21 08:31 65 149/64 01/17/21 05:53 97.9 18 95 01/16/21 06:19 Room Air I & O 01/16/21 01/16/21 01/17/21 14:59 22:59 06:59 Intake Total 720 ml 600 ml Balance 720 ml 600 ml Labs: Laboratory Tests Test 01/16/21 15:25 White Blood Count 5.0 x10^3/uL (4.0-11.0) Red Blood Count 2.85 x10^6/uL (3.50-5.40) L Hemoglobin 9.6 g/dL (12.0-15.5) L Hematocrit 28.5 % (36.0-47.0) L Mean Corpuscular Volume 100 fL (79-100) Mean Corpuscular Hemoglobin 34 pg (25-35) Mean Corpuscular Hemoglobin Concent 34 g/dL (31-37) Red Cell Distribution Width 16.2 % (11.5-14.5) H Platelet Count 256 x10^3/uL (140-400) Neutrophils (%) (Auto) 59 % (31-73) Lymphocytes (%) (Auto) 19 % (24-48) L Monocytes (%) (Auto) 12 % (0-9) H Eosinophils (%) (Auto) 10 % (0-3) H Basophils (%) (Auto) 1 % (0-3) Neutrophils # (Auto) 2.9 x10^3uL (1.8-7.7) Lymphocytes # (Auto) 0.9 x10^3/uL (1.0-4.8) L Monocytes # (Auto) 0.6 x10^3/uL (0.0-1.1) Eosinophils # (Auto) 0.5 x10^3/uL (0.0-0.7) Basophils # (Auto) 0.0 x10^3/uL (0.0-0.2) Sodium Level 142 mmol/L (136-145) Potassium Level 4.4 mmol/L (3.5-5.1) Chloride Level 104 mmol/L (98-107) Carbon Dioxide Level 32 mmol/L (21-32) Anion Gap 6 (6-14) Blood Urea Nitrogen 35 mg/dL (7-20) H Creatinine 1.1 mg/dL (0.6-1.0) H Estimated GFR (Cockcroft-Gault) 47.1 BUN/Creatinine Ratio 32 (6-20) H Glucose Level 94 mg/dL (70-99) Calcium Level 8.4 mg/dL (8.5-10.1) L Total Bilirubin 0.4 mg/dL (0.2-1.0) Aspartate Amino Transferase (AST) 18 U/L (15-37) Alanine Aminotransferase (ALT) 26 U/L (14-59) Alkaline Phosphatase 58 U/L (46-116) Total Protein 7.0 g/dL (6.4-8.2) Albumin 3.4 g/dL (3.4-5.0) Albumin/Globulin Ratio 0.9 (1.0-1.7) L Current Medications: Meds: Laboratory Tests Test 01/16/21 15:25 White Blood Count 5.0 x10^3/uL Red Blood Count 2.85 x10^6/uL Hemoglobin 9.6 g/dL Hematocrit 28.5 % Mean Corpuscular Volume 100 fL Mean Corpuscular Hemoglobin 34 pg Mean Corpuscular Hemoglobin Concent 34 g/dL Red Cell Distribution Width 16.2 % Platelet Count 256 x10^3/uL Neutrophils (%) (Auto) 59 % Lymphocytes (%) (Auto) 19 % Monocytes (%) (Auto) 12 % Eosinophils (%) (Auto) 10 % Basophils (%) (Auto) 1 % Neutrophils # (Auto) 2.9 x10^3uL Lymphocytes # (Auto) 0.9 x10^3/uL Monocytes # (Auto) 0.6 x10^3/uL Eosinophils # (Auto) 0.5 x10^3/uL Basophils # (Auto) 0.0 x10^3/uL Sodium Level 142 mmol/L Potassium Level 4.4 mmol/L Chloride Level 104 mmol/L Carbon Dioxide Level 32 mmol/L Anion Gap 6 Blood Urea Nitrogen 35 mg/dL Creatinine 1.1 mg/dL Estimated GFR (Cockcroft-Gault) 47.1 BUN/Creatinine Ratio 32 Glucose Level 94 mg/dL Calcium Level 8.4 mg/dL Total Bilirubin 0.4 mg/dL Aspartate Amino Transf (AST/SGOT) 18 U/L Alanine Aminotransferase (ALT/SGPT) 26 U/L Alkaline Phosphatase 58 U/L Total Protein 7.0 g/dL Albumin 3.4 g/dL Albumin/Globulin Ratio 0.9 Current Medications Medications (Trade) Dose Ordered Sig/Marguerite Route PRN Reason Start Time Stop Time Status Last Admin Dose Admin Potassium Chloride (Klor-Con) 40 meq 1X ONCE PO 01/04/21 19:00 01/04/21 19:07 DC 01/04/21 19:16 Acetaminophen (Tylenol) 500 mg PRN Q12HR PRN PO PAIN 01/04/21 23:00 Cancel Atorvastatin Calcium (Lipitor) 10 mg QHS PO 01/05/21 21:00 01/16/21 21:13 Furosemide (Lasix) 40 mg DAILY PO 01/05/21 09:00 01/17/21 08:32 Metoprolol Tartrate (Lopressor) 50 mg BID PO 01/05/21 09:00 01/17/21 08:31 Potassium Chloride (Klor-Con) 20 meq DAILY PO 01/05/21 09:00 01/11/21 15:00 DC 01/11/21 08:57 Polyethylene Glycol (miraLAX) 17 gm DAILY PO 01/05/21 09:00 01/17/21 08:31 Lorazepam (Ativan) 1 mg PRN Q4HRS PRN PO ANXIETY / AGITATION 01/04/21 23:00 01/09/21 10:42 DC 01/07/21 23:07 Lorazepam (Ativan Intensol) 1 mg PRN Q6HRS PRN PO ANXIETY / AGITATION 01/04/21 23:00 01/09/21 17:03 DC Risperidone (RisperDAL) 0.25 mg DAILY PO 01/05/21 09:00 01/17/21 08:32 Risperidone (RisperDAL) 0.5 mg QHS PO 01/05/21 21:00 01/08/21 17:27 DC 01/07/21 20:28 Melatonin (Melatonin) 6 mg HS PO 01/05/21 21:00 01/08/21 17:27 DC 01/07/21 20:28 Acetaminophen (Tylenol) 650 mg PRN Q6HRS PRN PO MILD PAIN / TEMP > 100.3'F 01/04/21 22:45 01/05/21 08:40 Multi-Ingredient Ointment (Analgesic [place]) 1 abby PRN QID PRN TP MUSCLE PAIN 01/04/21 22:45 Al Hydroxide/Mg Hydroxide (Mylanta Plus Xs) 15 ml PRN AFTMEALHC PRN PO DYSPEPSIA 01/04/21 22:45 Magnesium Hydroxide (Milk Of Magnesia) 2,400 mg PRN QHS PRN PO CONSTIPATION 01/04/21 22:45 Potassium Chloride (Klor-Con) 40 meq 1X ONCE PO 01/05/21 15:45 01/05/21 15:49 DC 01/05/21 17:29 Potassium Chloride (Klor-Con) 20 meq BID PO 01/05/21 21:00 01/17/21 08:32 Sertraline HCl (Zoloft) 25 mg DAILY PO 01/07/21 09:00 01/09/21 18:00 DC 01/09/21 08:24 Sertraline HCl (Zoloft) 50 mg DAILY PO 01/10/21 09:00 01/14/21 11:10 DC 01/14/21 08:11 Melatonin (Melatonin) 3 mg HS PO 01/08/21 21:00 01/16/21 21:13 Trazodone HCl (Desyrel) 50 mg PRN QHS PRN PO INSOMNIA MRX1 01/08/21 17:30 01/16/21 21:12 Risperidone (RisperDAL) 1 mg QHS PO 01/08/21 21:00 01/08/21 19:47 DC Olanzapine (ZyPREXA ZYDIS) 2.5 mg PRN Q2HRS PRN PO PSYCHOSIS 01/08/21 19:45 01/16/21 17:00 Risperidone (RisperDAL) 0.5 mg HS PO 01/08/21 21:00 01/08/21 19:58 DC Risperidone (RisperDAL) 0.25 mg HS PO 01/08/21 20:00 01/08/21 20:01 DC Risperidone (RisperDAL) 0.25 mg HS PO 01/08/21 21:00 01/14/21 11:11 DC 01/13/21 20:11 Lorazepam (Ativan Intensol) 0.25 mg PRN Q6HRS PRN PO ANXIETY / AGITATION 01/09/21 17:15 01/09/21 17:46 DC Lorazepam (Ativan Intensol) 0.25 mg PRN TID PRN PO ANXIETY / AGITATION 01/09/21 17:45 Trazodone HCl (Desyrel) 50 mg 1445 ONCE PO 01/11/21 14:45 01/11/21 14:54 DC Mirtazapine (Remeron) 7.5 mg QHS PO 01/11/21 21:00 01/16/21 21:13 Sertraline HCl (Zoloft) 75 mg DAILY PO 01/15/21 09:00 01/17/21 08:31 Risperidone (RisperDAL) 0.5 mg QHS PO 01/14/21 21:00 01/16/21 21:12 I have reviewed the current psychotropics carefully including drug interactions. Risk benefit ratio favors no change other than as noted in my dictated progress note. 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
[2021-01-17] MEDS: LORazepam INTENSOL 2 MG/ML BOTTLE PO PRN (16:12)
[2021-01-17 16:40] VITALS: BP 119/58
[2021-01-17] MEDS: traZODone 50 MG TABLET. PO PRN (19:38)
[2021-01-17] MEDS: risperiDONE 0.5 MG TABLET. PO SCH (19:38)
[2021-01-17] MEDS: ATORVASTATIN CALCIUM 10 MG TABLET. PO SCH (19:38)
[2021-01-17] MEDS: MELATONIN 3 MG TABLET PO SCH (19:38)
[2021-01-17] MEDS: MIRTAZAPINE 7.5 MG TABLET. PO SCH (19:38)
--- NOTE | 2021-01-17 22:05 | PDOC ---
Exam Note: Devang Note: Please also refer to the separate dictated note~for this date of service dictated separately.~Patient seen individually. Discussed the patient with Nursing staff reviewed the chart.~Reviewed interim history and current functioning. Reviewed vital signs,~Labs/ Radiology~and current medications noted below. Continue current treatment with the changes noted in the dictated addendum note Assessment: Vital Signs/I&O: Vital Signs Date Time Temp Pulse Resp B/P (MAP) Pulse Ox O2 Delivery O2 Flow Rate FiO2 01/17/21 19:38 125 119/58 01/17/21 16:40 97.8 22 94 01/16/21 06:19 Room Air I & O 01/16/21 01/16/21 01/17/21 15:00 23:00 07:00 Intake Total 720 ml 600 ml Balance 720 ml 600 ml Current Medications: Meds: Current Medications Medications (Trade) Dose Ordered Sig/Marguerite Route PRN Reason Start Time Stop Time Status Last Admin Dose Admin Potassium Chloride (Klor-Con) 40 meq 1X ONCE PO 01/04/21 19:00 01/04/21 19:07 DC 01/04/21 19:16 Acetaminophen (Tylenol) 500 mg PRN Q12HR PRN PO PAIN 01/04/21 23:00 Cancel Atorvastatin Calcium (Lipitor) 10 mg QHS PO 01/05/21 21:00 01/17/21 19:38 Furosemide (Lasix) 40 mg DAILY PO 01/05/21 09:00 01/17/21 08:32 Metoprolol Tartrate (Lopressor) 50 mg BID PO 01/05/21 09:00 01/17/21 19:38 Potassium Chloride (Klor-Con) 20 meq DAILY PO 01/05/21 09:00 01/11/21 15:00 DC 01/11/21 08:57 Polyethylene Glycol (miraLAX) 17 gm DAILY PO 01/05/21 09:00 01/17/21 08:31 Lorazepam (Ativan) 1 mg PRN Q4HRS PRN PO ANXIETY / AGITATION 01/04/21 23:00 01/09/21 10:42 DC 01/07/21 23:07 Lorazepam (Ativan Intensol) 1 mg PRN Q6HRS PRN PO ANXIETY / AGITATION 01/04/21 23:00 01/09/21 17:03 DC Risperidone (RisperDAL) 0.25 mg DAILY PO 01/05/21 09:00 01/17/21 08:32 Risperidone (RisperDAL) 0.5 mg QHS PO 01/05/21 21:00 01/08/21 17:27 DC 01/07/21 20:28 Melatonin (Melatonin) 6 mg HS PO 01/05/21 21:00 01/08/21 17:27 DC 01/07/21 20:28 Acetaminophen (Tylenol) 650 mg PRN Q6HRS PRN PO MILD PAIN / TEMP > 100.3'F 01/04/21 22:45 01/05/21 08:40 Multi-Ingredient Ointment (Analgesic [place]) 1 abby PRN QID PRN TP MUSCLE PAIN 01/04/21 22:45 Al Hydroxide/Mg Hydroxide (Mylanta Plus Xs) 15 ml PRN AFTMEALHC PRN PO DYSPEPSIA 01/04/21 22:45 Magnesium Hydroxide (Milk Of Magnesia) 2,400 mg PRN QHS PRN PO CONSTIPATION 01/04/21 22:45 Potassium Chloride (Klor-Con) 40 meq 1X ONCE PO 01/05/21 15:45 01/05/21 15:49 DC 01/05/21 17:29 Potassium Chloride (Klor-Con) 20 meq BID PO 01/05/21 21:00 01/17/21 19:40 Sertraline HCl (Zoloft) 25 mg DAILY PO 01/07/21 09:00 01/09/21 18:00 DC 01/09/21 08:24 Sertraline HCl (Zoloft) 50 mg DAILY PO 01/10/21 09:00 01/14/21 11:10 DC 01/14/21 08:11 Melatonin (Melatonin) 3 mg HS PO 01/08/21 21:00 01/17/21 19:38 Trazodone HCl (Desyrel) 50 mg PRN QHS PRN PO INSOMNIA MRX1 01/08/21 17:30 01/17/21 19:38 Risperidone (RisperDAL) 1 mg QHS PO 01/08/21 21:00 01/08/21 19:47 DC Olanzapine (ZyPREXA ZYDIS) 2.5 mg PRN Q2HRS PRN PO PSYCHOSIS 01/08/21 19:45 01/17/21 19:38 Risperidone (RisperDAL) 0.5 mg HS PO 01/08/21 21:00 01/08/21 19:58 DC Risperidone (RisperDAL) 0.25 mg HS PO 01/08/21 20:00 01/08/21 20:01 DC Risperidone (RisperDAL) 0.25 mg HS PO 01/08/21 21:00 01/14/21 11:11 DC 01/13/21 20:11 Lorazepam (Ativan Intensol) 0.25 mg PRN Q6HRS PRN PO ANXIETY / AGITATION 01/09/21 17:15 01/09/21 17:46 DC Lorazepam (Ativan Intensol) 0.25 mg PRN TID PRN PO ANXIETY / AGITATION 01/09/21 17:45 01/17/21 16:12 Trazodone HCl (Desyrel) 50 mg 1445 ONCE PO 01/11/21 14:45 01/11/21 14:54 DC Mirtazapine (Remeron) 7.5 mg QHS PO 01/11/21 21:00 01/17/21 19:38 Sertraline HCl (Zoloft) 75 mg DAILY PO 01/15/21 09:00 01/17/21 08:31 Risperidone (RisperDAL) 0.5 mg QHS PO 01/14/21 21:00 01/17/21 19:38 I have reviewed the current psychotropics carefully including drug interactions. Risk benefit ratio favors no change other than as noted in my dictated progress note. Diagnosis: Problems: (1) Dementia in Alzheimer's disease with depression (2) Dementia in Alzheimer's disease with delusions (3) Dementia of the Alzheimer's type with early onset with behavioral disturbance (4) Major neurocognitive disorder (5) Impulse control disorder, unspecified (6) Anxiety disorder, unspecified (7) Dementia, vascular, with depression (8) Dementia, vascular, with delusions OFE MONTENEGRO MD Jan 17, 2021 22:05
[2021-01-18 05:34] VITALS: BP 145/70
[2021-01-18] MEDS: POTASSIUM CHLORIDE 20 MEQ TABLET.ER. PO SCH ×3 (08:16→20:13)
[2021-01-18] MEDS: SERTRALINE 25 MG TABLET. PO SCH (08:17)
[2021-01-18] MEDS: FUROSEMIDE 40 MG TABLET PO SCH (08:17)
[2021-01-18] MEDS: METOPROLOL TART IMMED RELEASE 50 MG TABLET PO SCH ×2 (08:17→20:13)
[2021-01-18] MEDS: POLYETHYLENE GLYCOL 3350 17 GM PACKET. PO SCH (08:18)
[2021-01-18] MEDS: risperiDONE 0.25 MG TABLET. PO SCH (08:18)
--- NOTE | 2021-01-18 09:08 | PDOC ---
Exam Note: Devang Note: This note is a late entry for 01/17/2021 covers elements not covered in my initial note. Subjective: The patient was seen individually in the evening of 01/17/2021 with Lam MARIANO, discussed and reviewed the chart. The patient slept 5-1/2 hours previous night. She has been ambulating with a walker, quite paranoid. Meds have to be hidden. She is delusional, loud at times. Review of Systems: Ambulation impaired. No CV, , pulmonary, eye system symptoms on review. Mental Status Exam: The patient is oriented to herself. Insight and judgment, recent and remote memory, attention and concentration is poor consistent with her diagnoses. Laboratory Data: Reviewed. Impression: Major neurocognitive disorder Alzheimer vascular with delusion, depression, and behavioral disturbance. Anxiety disorder unspecified. Impulse control disorder unspecified. Plan: Continue psychotropics as noted above. We have adjusted her Risperdal to 0.25 mg b.i.d. We will maintain unchanged for now. We may need to increase later. Continue Zoloft, Remeron along with melatonin 3 mg h.s. and Zyprexa p.r.n. Assessment: Vital Signs/I&O: Vital Signs Date Time Temp Pulse Resp B/P (MAP) Pulse Ox O2 Delivery O2 Flow Rate FiO2 01/18/21 08:17 67 145/70 01/18/21 05:34 97.3 18 93 01/16/21 06:19 Room Air I & O 01/17/21 01/17/21 01/18/21 15:00 23:00 07:00 Intake Total 840 ml 120 ml Balance 840 ml 120 ml Current Medications: Meds: Current Medications Medications (Trade) Dose Ordered Sig/Marguerite Route PRN Reason Start Time Stop Time Status Last Admin Dose Admin Potassium Chloride (Klor-Con) 40 meq 1X ONCE PO 01/04/21 19:00 01/04/21 19:07 DC 01/04/21 19:16 Acetaminophen (Tylenol) 500 mg PRN Q12HR PRN PO PAIN 01/04/21 23:00 Cancel Atorvastatin Calcium (Lipitor) 10 mg QHS PO 01/05/21 21:00 01/17/21 19:38 Furosemide (Lasix) 40 mg DAILY PO 01/05/21 09:00 01/18/21 08:17 Metoprolol Tartrate (Lopressor) 50 mg BID PO 01/05/21 09:00 01/18/21 08:17 Potassium Chloride (Klor-Con) 20 meq DAILY PO 01/05/21 09:00 01/11/21 15:00 DC 01/11/21 08:57 Polyethylene Glycol (miraLAX) 17 gm DAILY PO 01/05/21 09:00 01/18/21 08:18 Lorazepam (Ativan) 1 mg PRN Q4HRS PRN PO ANXIETY / AGITATION 01/04/21 23:00 01/09/21 10:42 DC 01/07/21 23:07 Lorazepam (Ativan Intensol) 1 mg PRN Q6HRS PRN PO ANXIETY / AGITATION 01/04/21 23:00 01/09/21 17:03 DC Risperidone (RisperDAL) 0.25 mg DAILY PO 01/05/21 09:00 01/18/21 08:18 Risperidone (RisperDAL) 0.5 mg QHS PO 01/05/21 21:00 01/08/21 17:27 DC 01/07/21 20:28 Melatonin (Melatonin) 6 mg HS PO 01/05/21 21:00 01/08/21 17:27 DC 01/07/21 20:28 Acetaminophen (Tylenol) 650 mg PRN Q6HRS PRN PO MILD PAIN / TEMP > 100.3'F 01/04/21 22:45 01/05/21 08:40 Multi-Ingredient Ointment (Analgesic [place]) 1 abby PRN QID PRN TP MUSCLE PAIN 01/04/21 22:45 Al Hydroxide/Mg Hydroxide (Mylanta Plus Xs) 15 ml PRN AFTMEALHC PRN PO DYSPEPSIA 01/04/21 22:45 Magnesium Hydroxide (Milk Of Magnesia) 2,400 mg PRN QHS PRN PO CONSTIPATION 01/04/21 22:45 Potassium Chloride (Klor-Con) 40 meq 1X ONCE PO 01/05/21 15:45 01/05/21 15:49 DC 01/05/21 17:29 Potassium Chloride (Klor-Con) 20 meq BID PO 01/05/21 21:00 01/18/21 08:16 Sertraline HCl (Zoloft) 25 mg DAILY PO 01/07/21 09:00 01/09/21 18:00 DC 01/09/21 08:24 Sertraline HCl (Zoloft) 50 mg DAILY PO 01/10/21 09:00 01/14/21 11:10 DC 01/14/21 08:11 Melatonin (Melatonin) 3 mg HS PO 01/08/21 21:00 01/17/21 19:38 Trazodone HCl (Desyrel) 50 mg PRN QHS PRN PO INSOMNIA MRX1 01/08/21 17:30 01/17/21 19:38 Risperidone (RisperDAL) 1 mg QHS PO 01/08/21 21:00 01/08/21 19:47 DC Olanzapine (ZyPREXA ZYDIS) 2.5 mg PRN Q2HRS PRN PO PSYCHOSIS 01/08/21 19:45 01/17/21 19:38 Risperidone (RisperDAL) 0.5 mg HS PO 01/08/21 21:00 01/08/21 19:58 DC Risperidone (RisperDAL) 0.25 mg HS PO 01/08/21 20:00 01/08/21 20:01 DC Risperidone (RisperDAL) 0.25 mg HS PO 01/08/21 21:00 01/14/21 11:11 DC 01/13/21 20:11 Lorazepam (Ativan Intensol) 0.25 mg PRN Q6HRS PRN PO ANXIETY / AGITATION 01/09/21 17:15 01/09/21 17:46 DC Lorazepam (Ativan Intensol) 0.25 mg PRN TID PRN PO ANXIETY / AGITATION 01/09/21 17:45 01/17/21 16:12 Trazodone HCl (Desyrel) 50 mg 1445 ONCE PO 01/11/21 14:45 01/11/21 14:54 DC Mirtazapine (Remeron) 7.5 mg QHS PO 01/11/21 21:00 01/17/21 19:38 Sertraline HCl (Zoloft) 75 mg DAILY PO 01/15/21 09:00 01/18/21 08:17 Risperidone (RisperDAL) 0.5 mg QHS PO 01/14/21 21:00 01/17/21 19:38 I have reviewed the current psychotropics carefully including drug interactions. Risk benefit ratio favors no change other than as noted in my dictated progress note. 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
[2021-01-18 16:19] VITALS: BP 102/63
[2021-01-18] MEDS: MIRTAZAPINE ODT 15 MG TAB.RAPDIS. PO SCH (20:04)
[2021-01-18] MEDS: ATORVASTATIN CALCIUM 10 MG TABLET. PO SCH (20:04)
[2021-01-18] MEDS: traZODone 50 MG TABLET. PO PRN (20:04)
[2021-01-18] MEDS: MELATONIN 3 MG TABLET PO SCH (20:04)
[2021-01-18] MEDS: risperiDONE 0.5 MG TABLET. PO SCH (20:04)
--- NOTE | 2021-01-18 22:06 | PDOC ---
Exam Note: Devang Note: Please also refer to the separate dictated note~for this date of service dictated separately.~Patient seen individually. Discussed the patient with Nursing staff reviewed the chart.~Reviewed interim history and current functioning. Reviewed vital signs,~Labs/ Radiology~and current medications noted below. Continue current treatment with the changes noted in the dictated addendum note Assessment: Vital Signs/I&O: Vital Signs Date Time Temp Pulse Resp B/P (MAP) Pulse Ox O2 Delivery O2 Flow Rate FiO2 01/18/21 20:13 90 102/63 01/18/21 16:19 98.8 20 98 01/16/21 06:19 Room Air I & O 01/17/21 01/17/21 01/18/21 15:00 23:00 07:00 Intake Total 840 ml 120 ml Balance 840 ml 120 ml Current Medications: Meds: Current Medications Medications (Trade) Dose Ordered Sig/Marguerite Route PRN Reason Start Time Stop Time Status Last Admin Dose Admin Potassium Chloride (Klor-Con) 40 meq 1X ONCE PO 01/04/21 19:00 01/04/21 19:07 DC 01/04/21 19:16 Acetaminophen (Tylenol) 500 mg PRN Q12HR PRN PO PAIN 01/04/21 23:00 Cancel Atorvastatin Calcium (Lipitor) 10 mg QHS PO 01/05/21 21:00 01/18/21 20:04 Furosemide (Lasix) 40 mg DAILY PO 01/05/21 09:00 01/18/21 08:17 Metoprolol Tartrate (Lopressor) 50 mg BID PO 01/05/21 09:00 01/18/21 08:17 Potassium Chloride (Klor-Con) 20 meq DAILY PO 01/05/21 09:00 01/11/21 15:00 DC 01/11/21 08:57 Polyethylene Glycol (miraLAX) 17 gm DAILY PO 01/05/21 09:00 01/18/21 08:18 Lorazepam (Ativan) 1 mg PRN Q4HRS PRN PO ANXIETY / AGITATION 01/04/21 23:00 01/09/21 10:42 DC 01/07/21 23:07 Lorazepam (Ativan Intensol) 1 mg PRN Q6HRS PRN PO ANXIETY / AGITATION 01/04/21 23:00 01/09/21 17:03 DC Risperidone (RisperDAL) 0.25 mg DAILY PO 01/05/21 09:00 01/18/21 08:18 Risperidone (RisperDAL) 0.5 mg QHS PO 01/05/21 21:00 01/08/21 17:27 DC 01/07/21 20:28 Melatonin (Melatonin) 6 mg HS PO 01/05/21 21:00 01/08/21 17:27 DC 01/07/21 20:28 Acetaminophen (Tylenol) 650 mg PRN Q6HRS PRN PO MILD PAIN / TEMP > 100.3'F 01/04/21 22:45 01/05/21 08:40 Multi-Ingredient Ointment (Analgesic [place]) 1 abby PRN QID PRN TP MUSCLE PAIN 01/04/21 22:45 Al Hydroxide/Mg Hydroxide (Mylanta Plus Xs) 15 ml PRN AFTMEALHC PRN PO DYSPEPSIA 01/04/21 22:45 Magnesium Hydroxide (Milk Of Magnesia) 2,400 mg PRN QHS PRN PO CONSTIPATION 01/04/21 22:45 Potassium Chloride (Klor-Con) 40 meq 1X ONCE PO 01/05/21 15:45 01/05/21 15:49 DC 01/05/21 17:29 Potassium Chloride (Klor-Con) 20 meq BID PO 01/05/21 21:00 01/18/21 08:16 Sertraline HCl (Zoloft) 25 mg DAILY PO 01/07/21 09:00 01/09/21 18:00 DC 01/09/21 08:24 Sertraline HCl (Zoloft) 50 mg DAILY PO 01/10/21 09:00 01/14/21 11:10 DC 01/14/21 08:11 Melatonin (Melatonin) 3 mg HS PO 01/08/21 21:00 01/18/21 20:04 Trazodone HCl (Desyrel) 50 mg PRN QHS PRN PO INSOMNIA MRX1 01/08/21 17:30 01/18/21 20:04 Risperidone (RisperDAL) 1 mg QHS PO 01/08/21 21:00 01/08/21 19:47 DC Olanzapine (ZyPREXA ZYDIS) 2.5 mg PRN Q2HRS PRN PO PSYCHOSIS 01/08/21 19:45 01/18/21 20:06 Risperidone (RisperDAL) 0.5 mg HS PO 01/08/21 21:00 01/08/21 19:58 DC Risperidone (RisperDAL) 0.25 mg HS PO 01/08/21 20:00 01/08/21 20:01 DC Risperidone (RisperDAL) 0.25 mg HS PO 01/08/21 21:00 01/14/21 11:11 DC 01/13/21 20:11 Lorazepam (Ativan Intensol) 0.25 mg PRN Q6HRS PRN PO ANXIETY / AGITATION 01/09/21 17:15 01/09/21 17:46 DC Lorazepam (Ativan Intensol) 0.25 mg PRN TID PRN PO ANXIETY / AGITATION 01/09/21 17:45 01/17/21 16:12 Trazodone HCl (Desyrel) 50 mg 1445 ONCE PO 01/11/21 14:45 01/11/21 14:54 DC Mirtazapine (Remeron) 7.5 mg QHS PO 01/11/21 21:00 01/18/21 19:49 DC 01/17/21 19:38 Sertraline HCl (Zoloft) 75 mg DAILY PO 01/15/21 09:00 01/18/21 08:17 Risperidone (RisperDAL) 0.5 mg QHS PO 01/14/21 21:00 01/18/21 20:04 Mirtazapine (Remeron Anum-Tab) 15 mg QHS PO 01/18/21 21:00 01/18/21 20:04 Current Medications Medications (Trade) Dose Ordered Sig/Marguerite Route PRN Reason Start Time Stop Time Status Last Admin Dose Admin Mirtazapine (Remeron Anum-Tab) 15 mg QHS PO 01/18/21 21:00 01/18/21 20:04 I have reviewed the current psychotropics carefully including drug interactions. Risk benefit ratio favors no change other than as noted in my dictated progress note. 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
[2021-01-19 05:54] VITALS: BP 131/67
--- NOTE | 2021-01-19 06:38 | PDOC ---
Exam Note: Devang Note: This note is a late entry for 01/18/2021 covers elements not covered in my initial note. Subjective: The patient was seen individually in the evening of 01/18/2021 with Lam MARIANO, discussed and reviewed the chart. The patient slept 5-1/4 hours previous night. She has been yelling, somewhat disruptive, put herself on the floor x1. She did not sleep well last night. She received trazodone and Zyprexa p.r.n. Review of Systems: Ambulation impaired. No CV, , pulmonary, eye system symptoms on review. Mental Status Exam: The patient is oriented to herself. Insight and judgment, recent and remote memory, attention and concentration is poor consistent with her diagnoses. Laboratory Data: Reviewed. Impression: Major neurocognitive disorder Alzheimer vascular with delusion, depression, and behavioral disturbance. Anxiety disorder unspecified. Impulse control disorder unspecified. Plan: Continue psychotropics as noted above. Increase Remeron from 7.5 mg h.s. to 15 mg h.s. Assessment: Vital Signs/I&O: Vital Signs Date Time Temp Pulse Resp B/P (MAP) Pulse Ox O2 Delivery O2 Flow Rate FiO2 01/19/21 05:54 99.0 70 16 131/67 (88) 92 Room Air I & O 01/18/21 01/18/21 01/19/21 14:59 22:59 06:59 Intake Total 640 ml 240 ml Balance 640 ml 240 ml Current Medications: Meds: Current Medications Medications (Trade) Dose Ordered Sig/Marguerite Route PRN Reason Start Time Stop Time Status Last Admin Dose Admin Potassium Chloride (Klor-Con) 40 meq 1X ONCE PO 01/04/21 19:00 01/04/21 19:07 DC 01/04/21 19:16 Acetaminophen (Tylenol) 500 mg PRN Q12HR PRN PO PAIN 01/04/21 23:00 Cancel Atorvastatin Calcium (Lipitor) 10 mg QHS PO 01/05/21 21:00 01/18/21 20:04 Furosemide (Lasix) 40 mg DAILY PO 01/05/21 09:00 01/18/21 08:17 Metoprolol Tartrate (Lopressor) 50 mg BID PO 01/05/21 09:00 01/18/21 08:17 Potassium Chloride (Klor-Con) 20 meq DAILY PO 01/05/21 09:00 01/11/21 15:00 DC 01/11/21 08:57 Polyethylene Glycol (miraLAX) 17 gm DAILY PO 01/05/21 09:00 01/18/21 08:18 Lorazepam (Ativan) 1 mg PRN Q4HRS PRN PO ANXIETY / AGITATION 01/04/21 23:00 01/09/21 10:42 DC 01/07/21 23:07 Lorazepam (Ativan Intensol) 1 mg PRN Q6HRS PRN PO ANXIETY / AGITATION 01/04/21 23:00 01/09/21 17:03 DC Risperidone (RisperDAL) 0.25 mg DAILY PO 01/05/21 09:00 01/18/21 08:18 Risperidone (RisperDAL) 0.5 mg QHS PO 01/05/21 21:00 01/08/21 17:27 DC 01/07/21 20:28 Melatonin (Melatonin) 6 mg HS PO 01/05/21 21:00 01/08/21 17:27 DC 01/07/21 20:28 Acetaminophen (Tylenol) 650 mg PRN Q6HRS PRN PO MILD PAIN / TEMP > 100.3'F 01/04/21 22:45 01/05/21 08:40 Multi-Ingredient Ointment (Analgesic [place]) 1 abby PRN QID PRN TP MUSCLE PAIN 01/04/21 22:45 Al Hydroxide/Mg Hydroxide (Mylanta Plus Xs) 15 ml PRN AFTMEALHC PRN PO DYSPEPSIA 01/04/21 22:45 Magnesium Hydroxide (Milk Of Magnesia) 2,400 mg PRN QHS PRN PO CONSTIPATION 01/04/21 22:45 Potassium Chloride (Klor-Con) 40 meq 1X ONCE PO 01/05/21 15:45 01/05/21 15:49 DC 01/05/21 17:29 Potassium Chloride (Klor-Con) 20 meq BID PO 01/05/21 21:00 01/18/21 08:16 Sertraline HCl (Zoloft) 25 mg DAILY PO 01/07/21 09:00 01/09/21 18:00 DC 01/09/21 08:24 Sertraline HCl (Zoloft) 50 mg DAILY PO 01/10/21 09:00 01/14/21 11:10 DC 01/14/21 08:11 Melatonin (Melatonin) 3 mg HS PO 01/08/21 21:00 01/18/21 20:04 Trazodone HCl (Desyrel) 50 mg PRN QHS PRN PO INSOMNIA MRX1 01/08/21 17:30 01/18/21 20:04 Risperidone (RisperDAL) 1 mg QHS PO 01/08/21 21:00 01/08/21 19:47 DC Olanzapine (ZyPREXA ZYDIS) 2.5 mg PRN Q2HRS PRN PO PSYCHOSIS 01/08/21 19:45 01/18/21 20:06 Risperidone (RisperDAL) 0.5 mg HS PO 01/08/21 21:00 01/08/21 19:58 DC Risperidone (RisperDAL) 0.25 mg HS PO 01/08/21 20:00 01/08/21 20:01 DC Risperidone (RisperDAL) 0.25 mg HS PO 01/08/21 21:00 01/14/21 11:11 DC 01/13/21 20:11 Lorazepam (Ativan Intensol) 0.25 mg PRN Q6HRS PRN PO ANXIETY / AGITATION 01/09/21 17:15 01/09/21 17:46 DC Lorazepam (Ativan Intensol) 0.25 mg PRN TID PRN PO ANXIETY / AGITATION 01/09/21 17:45 01/17/21 16:12 Trazodone HCl (Desyrel) 50 mg 1445 ONCE PO 01/11/21 14:45 01/11/21 14:54 DC Mirtazapine (Remeron) 7.5 mg QHS PO 01/11/21 21:00 01/18/21 19:49 DC 01/17/21 19:38 Sertraline HCl (Zoloft) 75 mg DAILY PO 01/15/21 09:00 01/18/21 08:17 Risperidone (RisperDAL) 0.5 mg QHS PO 01/14/21 21:00 01/18/21 20:04 Mirtazapine (Remeron Anum-Tab) 15 mg QHS PO 01/18/21 21:00 01/18/21 20:04 Current Medications Medications (Trade) Dose Ordered Sig/Marguerite Route PRN Reason Start Time Stop Time Status Last Admin Dose Admin Mirtazapine (Remeron Anum-Tab) 15 mg QHS PO 01/18/21 21:00 01/18/21 20:04 I have reviewed the current psychotropics carefully including drug interactions. Risk benefit ratio favors no change other than as noted in my dictated progress note. 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
[2021-01-19] MEDS: POLYETHYLENE GLYCOL 3350 17 GM PACKET. PO SCH (08:12)
[2021-01-19] MEDS: POTASSIUM CHLORIDE 20 MEQ TABLET.ER. PO SCH ×2 (08:12→19:46)
[2021-01-19] MEDS: risperiDONE 0.25 MG TABLET. PO SCH (08:13)
[2021-01-19] MEDS: SERTRALINE 25 MG TABLET. PO SCH (08:14)
[2021-01-19] MEDS: METOPROLOL TART IMMED RELEASE 50 MG TABLET PO SCH ×2 (08:14→19:44)
[2021-01-19] MEDS: FUROSEMIDE 40 MG TABLET PO SCH (08:14)
[2021-01-19 15:54] VITALS: BP 129/73
[2021-01-19] MEDS: LORazepam INTENSOL 2 MG/ML BOTTLE PO PRN (17:50)
[2021-01-19] MEDS: ATORVASTATIN CALCIUM 10 MG TABLET. PO SCH (19:44)
[2021-01-19] MEDS: MELATONIN 3 MG TABLET PO SCH (19:44)
[2021-01-19] MEDS: risperiDONE 0.5 MG TABLET. PO SCH (19:44)
[2021-01-19] MEDS: MIRTAZAPINE ODT 15 MG TAB.RAPDIS. PO SCH (19:44)
[2021-01-19] MEDS: traZODone 50 MG TABLET. PO PRN (19:46)
--- NOTE | 2021-01-19 22:09 | PDOC ---
Exam Note: Devang Note: Please also refer to the separate dictated note~for this date of service dictated separately.~Patient seen individually. Discussed the patient with Nursing staff reviewed the chart.~Reviewed interim history and current functioning. Reviewed vital signs,~Labs/ Radiology~and current medications noted below. Continue current treatment with the changes noted in the dictated addendum note Assessment: Vital Signs/I&O: Vital Signs Date Time Temp Pulse Resp B/P (MAP) Pulse Ox O2 Delivery O2 Flow Rate FiO2 01/19/21 19:44 67 129/73 01/19/21 15:54 97.2 17 96 Room Air I & O 01/18/21 01/18/21 01/19/21 14:59 22:59 06:59 Intake Total 640 ml 240 ml Balance 640 ml 240 ml Current Medications: Meds: Current Medications Medications (Trade) Dose Ordered Sig/Marguerite Route PRN Reason Start Time Stop Time Status Last Admin Dose Admin Potassium Chloride (Klor-Con) 40 meq 1X ONCE PO 01/04/21 19:00 01/04/21 19:07 DC 01/04/21 19:16 Acetaminophen (Tylenol) 500 mg PRN Q12HR PRN PO PAIN 01/04/21 23:00 Cancel Atorvastatin Calcium (Lipitor) 10 mg QHS PO 01/05/21 21:00 01/19/21 19:44 Furosemide (Lasix) 40 mg DAILY PO 01/05/21 09:00 01/19/21 08:14 Metoprolol Tartrate (Lopressor) 50 mg BID PO 01/05/21 09:00 01/19/21 19:44 Potassium Chloride (Klor-Con) 20 meq DAILY PO 01/05/21 09:00 01/11/21 15:00 DC 01/11/21 08:57 Polyethylene Glycol (miraLAX) 17 gm DAILY PO 01/05/21 09:00 01/19/21 08:12 Lorazepam (Ativan) 1 mg PRN Q4HRS PRN PO ANXIETY / AGITATION 01/04/21 23:00 01/09/21 10:42 DC 01/07/21 23:07 Lorazepam (Ativan Intensol) 1 mg PRN Q6HRS PRN PO ANXIETY / AGITATION 01/04/21 23:00 01/09/21 17:03 DC Risperidone (RisperDAL) 0.25 mg DAILY PO 01/05/21 09:00 01/19/21 08:13 Risperidone (RisperDAL) 0.5 mg QHS PO 01/05/21 21:00 01/08/21 17:27 DC 01/07/21 20:28 Melatonin (Melatonin) 6 mg HS PO 01/05/21 21:00 01/08/21 17:27 DC 01/07/21 20:28 Acetaminophen (Tylenol) 650 mg PRN Q6HRS PRN PO MILD PAIN / TEMP > 100.3'F 01/04/21 22:45 01/05/21 08:40 Multi-Ingredient Ointment (Analgesic [place]) 1 abby PRN QID PRN TP MUSCLE PAIN 01/04/21 22:45 Al Hydroxide/Mg Hydroxide (Mylanta Plus Xs) 15 ml PRN AFTMEALHC PRN PO DYSPEPSIA 01/04/21 22:45 Magnesium Hydroxide (Milk Of Magnesia) 2,400 mg PRN QHS PRN PO CONSTIPATION 01/04/21 22:45 Potassium Chloride (Klor-Con) 40 meq 1X ONCE PO 01/05/21 15:45 01/05/21 15:49 DC 01/05/21 17:29 Potassium Chloride (Klor-Con) 20 meq BID PO 01/05/21 21:00 01/19/21 08:12 Sertraline HCl (Zoloft) 25 mg DAILY PO 01/07/21 09:00 01/09/21 18:00 DC 01/09/21 08:24 Sertraline HCl (Zoloft) 50 mg DAILY PO 01/10/21 09:00 01/14/21 11:10 DC 01/14/21 08:11 Melatonin (Melatonin) 3 mg HS PO 01/08/21 21:00 01/19/21 19:44 Trazodone HCl (Desyrel) 50 mg PRN QHS PRN PO INSOMNIA MRX1 01/08/21 17:30 01/19/21 19:46 Risperidone (RisperDAL) 1 mg QHS PO 01/08/21 21:00 01/08/21 19:47 DC Olanzapine (ZyPREXA ZYDIS) 2.5 mg PRN Q2HRS PRN PO PSYCHOSIS 01/08/21 19:45 01/19/21 19:46 Risperidone (RisperDAL) 0.5 mg HS PO 01/08/21 21:00 01/08/21 19:58 DC Risperidone (RisperDAL) 0.25 mg HS PO 01/08/21 20:00 01/08/21 20:01 DC Risperidone (RisperDAL) 0.25 mg HS PO 01/08/21 21:00 01/14/21 11:11 DC 01/13/21 20:11 Lorazepam (Ativan Intensol) 0.25 mg PRN Q6HRS PRN PO ANXIETY / AGITATION 01/09/21 17:15 01/09/21 17:46 DC Lorazepam (Ativan Intensol) 0.25 mg PRN TID PRN PO ANXIETY / AGITATION 01/09/21 17:45 01/19/21 17:50 Trazodone HCl (Desyrel) 50 mg 1445 ONCE PO 01/11/21 14:45 01/11/21 14:54 DC Mirtazapine (Remeron) 7.5 mg QHS PO 01/11/21 21:00 01/18/21 19:49 DC 01/17/21 19:38 Sertraline HCl (Zoloft) 75 mg DAILY PO 01/15/21 09:00 01/19/21 17:19 DC 01/19/21 08:14 Risperidone (RisperDAL) 0.5 mg QHS PO 01/14/21 21:00 01/19/21 19:44 Mirtazapine (Remeron Anum-Tab) 15 mg QHS PO 01/18/21 21:00 01/19/21 19:44 Sertraline HCl (Zoloft) 100 mg DAILY PO 01/20/21 09:00 I have reviewed the current psychotropics carefully including drug interactions. Risk benefit ratio favors no change other than as noted in my dictated progress note. Diagnosis: Problems: (1) Dementia in Alzheimer's disease with depression (2) Dementia in Alzheimer's disease with delusions (3) Dementia of the Alzheimer's type with early onset with behavioral disturbance (4) Major neurocognitive disorder (5) Impulse control disorder, unspecified (6) Anxiety disorder, unspecified (7) Dementia, vascular, with depression (8) Dementia, vascular, with delusions OFE MONTENEGRO MD Jan 19, 2021 22:09
[2021-01-20 05:59] VITALS: BP 125/55
[2021-01-20] MEDS: POLYETHYLENE GLYCOL 3350 17 GM PACKET. PO SCH (08:26)
[2021-01-20] MEDS: POTASSIUM CHLORIDE 20 MEQ TABLET.ER. PO SCH ×2 (08:26→19:47)
[2021-01-20] MEDS: FUROSEMIDE 40 MG TABLET PO SCH (08:26)
[2021-01-20] MEDS: METOPROLOL TART IMMED RELEASE 50 MG TABLET PO SCH ×2 (08:27→19:48)
[2021-01-20] MEDS: SERTRALINE 100 MG TABLET. PO SCH (08:27)
[2021-01-20] MEDS: risperiDONE 0.25 MG TABLET. PO SCH (08:27)
--- NOTE | 2021-01-20 09:00 | PDOC ---
Exam Note: Devang Note: This note is a late entry for 01/19/2021 covers elements not covered in my initial note. Subjective: The patient was seen individually in the evening of 01/19/2021 with Lam MARIANO, discussed and reviewed the chart. The patient slept 7-1/2 hours previous night. Previous evening the patient was yelling, sarcastic, disruptive, biting at staff, better today though she remains sarcastic. Review of Systems: Ambulation impaired. No CV, , pulmonary, eye system symptoms on review. Mental Status Exam: The patient is oriented to herself. I met with her in the hallway. Insight and judgment, recent and remote memory, attention and concentration is poor consistent with her diagnoses. Laboratory Data: Reviewed. Impression: Major neurocognitive disorder Alzheimer vascular with delusion, depression, and behavioral disturbance. Anxiety disorder unspecified. Impulse control disorder unspecified. Plan: Continue psychotropics as noted above. Increase Zoloft from 75 mg a day to 100 mg a day. Rest unchanged per initial note. Assessment: Vital Signs/I&O: Vital Signs Date Time Temp Pulse Resp B/P (MAP) Pulse Ox O2 Delivery O2 Flow Rate FiO2 01/20/21 08:27 68 125/55 01/20/21 05:59 97.3 16 94 Room Air I & O 01/19/21 01/19/21 01/20/21 15:00 23:00 07:00 Intake Total 720 ml 240 ml 60 ml Balance 720 ml 240 ml 60 ml Current Medications: Meds: Current Medications Medications (Trade) Dose Ordered Sig/Marguerite Route PRN Reason Start Time Stop Time Status Last Admin Dose Admin Potassium Chloride (Klor-Con) 40 meq 1X ONCE PO 01/04/21 19:00 01/04/21 19:07 DC 01/04/21 19:16 Acetaminophen (Tylenol) 500 mg PRN Q12HR PRN PO PAIN 01/04/21 23:00 Cancel Atorvastatin Calcium (Lipitor) 10 mg QHS PO 01/05/21 21:00 01/19/21 19:44 Furosemide (Lasix) 40 mg DAILY PO 01/05/21 09:00 01/20/21 08:26 Metoprolol Tartrate (Lopressor) 50 mg BID PO 01/05/21 09:00 01/20/21 08:27 Potassium Chloride (Klor-Con) 20 meq DAILY PO 01/05/21 09:00 01/11/21 15:00 DC 01/11/21 08:57 Polyethylene Glycol (miraLAX) 17 gm DAILY PO 01/05/21 09:00 01/20/21 08:26 Lorazepam (Ativan) 1 mg PRN Q4HRS PRN PO ANXIETY / AGITATION 01/04/21 23:00 01/09/21 10:42 DC 01/07/21 23:07 Lorazepam (Ativan Intensol) 1 mg PRN Q6HRS PRN PO ANXIETY / AGITATION 01/04/21 23:00 01/09/21 17:03 DC Risperidone (RisperDAL) 0.25 mg DAILY PO 01/05/21 09:00 01/20/21 08:27 Risperidone (RisperDAL) 0.5 mg QHS PO 01/05/21 21:00 01/08/21 17:27 DC 01/07/21 20:28 Melatonin (Melatonin) 6 mg HS PO 01/05/21 21:00 01/08/21 17:27 DC 01/07/21 20:28 Acetaminophen (Tylenol) 650 mg PRN Q6HRS PRN PO MILD PAIN / TEMP > 100.3'F 01/04/21 22:45 01/05/21 08:40 Multi-Ingredient Ointment (Analgesic [place]) 1 abby PRN QID PRN TP MUSCLE PAIN 01/04/21 22:45 Al Hydroxide/Mg Hydroxide (Mylanta Plus Xs) 15 ml PRN AFTMEALHC PRN PO DYSPEPSIA 01/04/21 22:45 Magnesium Hydroxide (Milk Of Magnesia) 2,400 mg PRN QHS PRN PO CONSTIPATION 01/04/21 22:45 Potassium Chloride (Klor-Con) 40 meq 1X ONCE PO 01/05/21 15:45 01/05/21 15:49 DC 01/05/21 17:29 Potassium Chloride (Klor-Con) 20 meq BID PO 01/05/21 21:00 01/20/21 08:26 Sertraline HCl (Zoloft) 25 mg DAILY PO 01/07/21 09:00 01/09/21 18:00 DC 01/09/21 08:24 Sertraline HCl (Zoloft) 50 mg DAILY PO 01/10/21 09:00 01/14/21 11:10 DC 01/14/21 08:11 Melatonin (Melatonin) 3 mg HS PO 01/08/21 21:00 01/19/21 19:44 Trazodone HCl (Desyrel) 50 mg PRN QHS PRN PO INSOMNIA MRX1 01/08/21 17:30 01/19/21 19:46 Risperidone (RisperDAL) 1 mg QHS PO 01/08/21 21:00 01/08/21 19:47 DC Olanzapine (ZyPREXA ZYDIS) 2.5 mg PRN Q2HRS PRN PO PSYCHOSIS 01/08/21 19:45 01/19/21 19:46 Risperidone (RisperDAL) 0.5 mg HS PO 01/08/21 21:00 01/08/21 19:58 DC Risperidone (RisperDAL) 0.25 mg HS PO 01/08/21 20:00 01/08/21 20:01 DC Risperidone (RisperDAL) 0.25 mg HS PO 01/08/21 21:00 01/14/21 11:11 DC 01/13/21 20:11 Lorazepam (Ativan Intensol) 0.25 mg PRN Q6HRS PRN PO ANXIETY / AGITATION 01/09/21 17:15 01/09/21 17:46 DC Lorazepam (Ativan Intensol) 0.25 mg PRN TID PRN PO ANXIETY / AGITATION 01/09/21 17:45 01/19/21 17:50 Trazodone HCl (Desyrel) 50 mg 1445 ONCE PO 01/11/21 14:45 01/11/21 14:54 DC Mirtazapine (Remeron) 7.5 mg QHS PO 01/11/21 21:00 01/18/21 19:49 DC 01/17/21 19:38 Sertraline HCl (Zoloft) 75 mg DAILY PO 01/15/21 09:00 01/19/21 17:19 DC 01/19/21 08:14 Risperidone (RisperDAL) 0.5 mg QHS PO 01/14/21 21:00 01/19/21 19:44 Mirtazapine (Remeron Anum-Tab) 15 mg QHS PO 01/18/21 21:00 01/19/21 19:44 Sertraline HCl (Zoloft) 100 mg DAILY PO 01/20/21 09:00 01/20/21 08:27 Current Medications Medications (Trade) Dose Ordered Sig/Marguerite Route PRN Reason Start Time Stop Time Status Last Admin Dose Admin Sertraline HCl (Zoloft) 100 mg DAILY PO 01/20/21 09:00 01/20/21 08:27 I have reviewed the current psychotropics carefully including drug interactions. Risk benefit ratio favors no change other than as noted in my dictated progress note. Diagnosis: Problems: (1) Dementia in Alzheimer's disease with depression (2) Dementia in Alzheimer's disease with delusions (3) Dementia of the Alzheimer's type with early onset with behavioral disturbance (4) Major neurocognitive disorder (5) Impulse control disorder, unspecified (6) Anxiety disorder, unspecified (7) Dementia, vascular, with depression (8) Dementia, vascular, with delusions OFE MONTENEGRO MD Jan 20, 2021 09:00
[2021-01-20 16:24] VITALS: BP 127/63
[2021-01-20] MEDS: traZODone 50 MG TABLET. PO PRN (19:47)
[2021-01-20] MEDS: ATORVASTATIN CALCIUM 10 MG TABLET. PO SCH (19:47)
[2021-01-20] MEDS: MELATONIN 3 MG TABLET PO SCH (19:47)
[2021-01-20] MEDS: MIRTAZAPINE ODT 15 MG TAB.RAPDIS. PO SCH (19:47)
[2021-01-20] MEDS: risperiDONE 0.5 MG TABLET. PO SCH (19:47)
--- NOTE | 2021-01-20 21:48 | PDOC ---
Exam Note: Devang Note: Please also refer to the separate dictated note~for this date of service dictated separately.~Patient seen individually. Discussed the patient with Nursing staff reviewed the chart.~Reviewed interim history and current functioning. Reviewed vital signs,~Labs/ Radiology~and current medications noted below. Continue current treatment with the changes noted in the dictated addendum note Assessment: Vital Signs/I&O: Vital Signs Date Time Temp Pulse Resp B/P (MAP) Pulse Ox O2 Delivery O2 Flow Rate FiO2 01/20/21 19:48 101 127/63 01/20/21 16:24 98.0 18 95 01/20/21 05:59 Room Air I & O 01/19/21 01/19/21 01/20/21 15:00 23:00 07:00 Intake Total 720 ml 240 ml 60 ml Balance 720 ml 240 ml 60 ml Current Medications: Meds: Current Medications Medications (Trade) Dose Ordered Sig/Marguerite Route PRN Reason Start Time Stop Time Status Last Admin Dose Admin Potassium Chloride (Klor-Con) 40 meq 1X ONCE PO 01/04/21 19:00 01/04/21 19:07 DC 01/04/21 19:16 Acetaminophen (Tylenol) 500 mg PRN Q12HR PRN PO PAIN 01/04/21 23:00 Cancel Atorvastatin Calcium (Lipitor) 10 mg QHS PO 01/05/21 21:00 01/20/21 19:47 Furosemide (Lasix) 40 mg DAILY PO 01/05/21 09:00 01/20/21 08:26 Metoprolol Tartrate (Lopressor) 50 mg BID PO 01/05/21 09:00 01/20/21 19:48 Potassium Chloride (Klor-Con) 20 meq DAILY PO 01/05/21 09:00 01/11/21 15:00 DC 01/11/21 08:57 Polyethylene Glycol (miraLAX) 17 gm DAILY PO 01/05/21 09:00 01/20/21 08:26 Lorazepam (Ativan) 1 mg PRN Q4HRS PRN PO ANXIETY / AGITATION 01/04/21 23:00 01/09/21 10:42 DC 01/07/21 23:07 Lorazepam (Ativan Intensol) 1 mg PRN Q6HRS PRN PO ANXIETY / AGITATION 01/04/21 23:00 01/09/21 17:03 DC Risperidone (RisperDAL) 0.25 mg DAILY PO 01/05/21 09:00 01/20/21 08:27 Risperidone (RisperDAL) 0.5 mg QHS PO 01/05/21 21:00 01/08/21 17:27 DC 01/07/21 20:28 Melatonin (Melatonin) 6 mg HS PO 01/05/21 21:00 01/08/21 17:27 DC 01/07/21 20:28 Acetaminophen (Tylenol) 650 mg PRN Q6HRS PRN PO MILD PAIN / TEMP > 100.3'F 01/04/21 22:45 01/05/21 08:40 Multi-Ingredient Ointment (Analgesic [place]) 1 abby PRN QID PRN TP MUSCLE PAIN 01/04/21 22:45 Al Hydroxide/Mg Hydroxide (Mylanta Plus Xs) 15 ml PRN AFTMEALHC PRN PO DYSPEPSIA 01/04/21 22:45 Magnesium Hydroxide (Milk Of Magnesia) 2,400 mg PRN QHS PRN PO CONSTIPATION 01/04/21 22:45 Potassium Chloride (Klor-Con) 40 meq 1X ONCE PO 01/05/21 15:45 01/05/21 15:49 DC 01/05/21 17:29 Potassium Chloride (Klor-Con) 20 meq BID PO 01/05/21 21:00 01/20/21 19:47 Sertraline HCl (Zoloft) 25 mg DAILY PO 01/07/21 09:00 01/09/21 18:00 DC 01/09/21 08:24 Sertraline HCl (Zoloft) 50 mg DAILY PO 01/10/21 09:00 01/14/21 11:10 DC 01/14/21 08:11 Melatonin (Melatonin) 3 mg HS PO 01/08/21 21:00 01/20/21 19:47 Trazodone HCl (Desyrel) 50 mg PRN QHS PRN PO INSOMNIA MRX1 01/08/21 17:30 01/20/21 19:47 Risperidone (RisperDAL) 1 mg QHS PO 01/08/21 21:00 01/08/21 19:47 DC Olanzapine (ZyPREXA ZYDIS) 2.5 mg PRN Q2HRS PRN PO PSYCHOSIS 01/08/21 19:45 01/20/21 20:07 Risperidone (RisperDAL) 0.5 mg HS PO 01/08/21 21:00 01/08/21 19:58 DC Risperidone (RisperDAL) 0.25 mg HS PO 01/08/21 20:00 01/08/21 20:01 DC Risperidone (RisperDAL) 0.25 mg HS PO 01/08/21 21:00 01/14/21 11:11 DC 01/13/21 20:11 Lorazepam (Ativan Intensol) 0.25 mg PRN Q6HRS PRN PO ANXIETY / AGITATION 01/09/21 17:15 01/09/21 17:46 DC Lorazepam (Ativan Intensol) 0.25 mg PRN TID PRN PO ANXIETY / AGITATION 01/09/21 17:45 01/19/21 17:50 Trazodone HCl (Desyrel) 50 mg 1445 ONCE PO 01/11/21 14:45 01/11/21 14:54 DC Mirtazapine (Remeron) 7.5 mg QHS PO 01/11/21 21:00 01/18/21 19:49 DC 01/17/21 19:38 Sertraline HCl (Zoloft) 75 mg DAILY PO 01/15/21 09:00 01/19/21 17:19 DC 01/19/21 08:14 Risperidone (RisperDAL) 0.5 mg QHS PO 01/14/21 21:00 01/20/21 19:47 Mirtazapine (Remeron Anum-Tab) 15 mg QHS PO 01/18/21 21:00 01/20/21 19:47 Sertraline HCl (Zoloft) 100 mg DAILY PO 01/20/21 09:00 01/20/21 08:27 Current Medications Medications (Trade) Dose Ordered Sig/Marguerite Route PRN Reason Start Time Stop Time Status Last Admin Dose Admin Sertraline HCl (Zoloft) 100 mg DAILY PO 01/20/21 09:00 01/20/21 08:27 I have reviewed the current psychotropics carefully including drug interactions. Risk benefit ratio favors no change other than as noted in my dictated progress note. Diagnosis: Problems: (1) Dementia in Alzheimer's disease with depression (2) Dementia in Alzheimer's disease with delusions (3) Dementia of the Alzheimer's type with early onset with behavioral disturban ce (4) Major neurocognitive disorder (5) Impulse control disorder, unspecified (6) Anxiety disorder, unspecified (7) Dementia, vascular, with depression (8) Dementia, vascular, with delusions OFE MONTENEGRO MD Jan 20, 2021 21:48
[2021-01-21] MEDS: traZODone 50 MG TABLET. PO PRN (00:31)
[2021-01-21 06:04] VITALS: BP 160/62
--- NOTE | 2021-01-21 06:46 | PDOC ---
Exam Note: Devang Note: This note is a late entry for 01/20/2021 covers elements not covered in my initial note. Subjective: The patient was seen individually in the evening of 01/20/2021 with Kaylee MARIANO, discussed and reviewed the chart. The patient slept 6-1/4 hours previous night. The patient was yelling previous night, disorganized, argumentative, noncompliant with medications. Today she has been more cooperative with meds, looking for her parents. Previous night she used Zyprexa and trazodone p.r.n. but less paranoid today. Appetite is poor and she only had eaten half her [place] steak. Review of Systems: Ambulation impaired. No CV, , pulmonary, eye system symptoms on review. Mental Status Exam: The patient is oriented to herself. I met with her supper time. Insight and judgment, recent and remote memory, attention and concentration is poor consistent with her diagnoses. Laboratory Data: Reviewed. Impression: Major neurocognitive disorder Alzheimer vascular with delusion, depression, and behavioral disturbance. Anxiety disorder unspecified. Impulse control disorder unspecified. Plan: Continue psychotropics as noted above. Assessment: Vital Signs/I&O: Vital Signs Date Time Temp Pulse Resp B/P (MAP) Pulse Ox O2 Delivery O2 Flow Rate FiO2 01/21/21 06:04 96.5 92 16 160/62 (94) 95 Room Air I & O 01/20/21 01/20/21 01/21/21 15:00 23:00 07:00 Intake Total 480 ml 320 ml Balance 480 ml 320 ml Current Medications: Meds: Current Medications Medications (Trade) Dose Ordered Sig/Marguerite Route PRN Reason Start Time Stop Time Status Last Admin Dose Admin Potassium Chloride (Klor-Con) 40 meq 1X ONCE PO 01/04/21 19:00 01/04/21 19:07 DC 01/04/21 19:16 Acetaminophen (Tylenol) 500 mg PRN Q12HR PRN PO PAIN 01/04/21 23:00 Cancel Atorvastatin Calcium (Lipitor) 10 mg QHS PO 01/05/21 21:00 01/20/21 19:47 Furosemide (Lasix) 40 mg DAILY PO 01/05/21 09:00 01/20/21 08:26 Metoprolol Tartrate (Lopressor) 50 mg BID PO 01/05/21 09:00 01/20/21 19:48 Potassium Chloride (Klor-Con) 20 meq DAILY PO 01/05/21 09:00 01/11/21 15:00 DC 01/11/21 08:57 Polyethylene Glycol (miraLAX) 17 gm DAILY PO 01/05/21 09:00 01/20/21 08:26 Lorazepam (Ativan) 1 mg PRN Q4HRS PRN PO ANXIETY / AGITATION 01/04/21 23:00 01/09/21 10:42 DC 01/07/21 23:07 Lorazepam (Ativan Intensol) 1 mg PRN Q6HRS PRN PO ANXIETY / AGITATION 01/04/21 23:00 01/09/21 17:03 DC Risperidone (RisperDAL) 0.25 mg DAILY PO 01/05/21 09:00 01/20/21 08:27 Risperidone (RisperDAL) 0.5 mg QHS PO 01/05/21 21:00 01/08/21 17:27 DC 01/07/21 20:28 Melatonin (Melatonin) 6 mg HS PO 01/05/21 21:00 01/08/21 17:27 DC 01/07/21 20:28 Acetaminophen (Tylenol) 650 mg PRN Q6HRS PRN PO MILD PAIN / TEMP > 100.3'F 01/04/21 22:45 01/05/21 08:40 Multi-Ingredient Ointment (Analgesic [place]) 1 abby PRN QID PRN TP MUSCLE PAIN 01/04/21 22:45 Al Hydroxide/Mg Hydroxide (Mylanta Plus Xs) 15 ml PRN AFTMEALHC PRN PO DYSPEPSIA 01/04/21 22:45 Magnesium Hydroxide (Milk Of Magnesia) 2,400 mg PRN QHS PRN PO CONSTIPATION 01/04/21 22:45 Potassium Chloride (Klor-Con) 40 meq 1X ONCE PO 01/05/21 15:45 01/05/21 15:49 DC 01/05/21 17:29 Potassium Chloride (Klor-Con) 20 meq BID PO 01/05/21 21:00 01/20/21 19:47 Sertraline HCl (Zoloft) 25 mg DAILY PO 01/07/21 09:00 01/09/21 18:00 DC 01/09/21 08:24 Sertraline HCl (Zoloft) 50 mg DAILY PO 01/10/21 09:00 01/14/21 11:10 DC 01/14/21 08:11 Melatonin (Melatonin) 3 mg HS PO 01/08/21 21:00 01/20/21 19:47 Trazodone HCl (Desyrel) 50 mg PRN QHS PRN PO INSOMNIA MRX1 01/08/21 17:30 01/21/21 00:31 Risperidone (RisperDAL) 1 mg QHS PO 01/08/21 21:00 01/08/21 19:47 DC Olanzapine (ZyPREXA ZYDIS) 2.5 mg PRN Q2HRS PRN PO PSYCHOSIS 01/08/21 19:45 01/20/21 20:07 Risperidone (RisperDAL) 0.5 mg HS PO 01/08/21 21:00 01/08/21 19:58 DC Risperidone (RisperDAL) 0.25 mg HS PO 01/08/21 20:00 01/08/21 20:01 DC Risperidone (RisperDAL) 0.25 mg HS PO 01/08/21 21:00 01/14/21 11:11 DC 01/13/21 20:11 Lorazepam (Ativan Intensol) 0.25 mg PRN Q6HRS PRN PO ANXIETY / AGITATION 01/09/21 17:15 01/09/21 17:46 DC Lorazepam (Ativan Intensol) 0.25 mg PRN TID PRN PO ANXIETY / AGITATION 01/09/21 17:45 01/19/21 17:50 Trazodone HCl (Desyrel) 50 mg 1445 ONCE PO 01/11/21 14:45 01/11/21 14:54 DC Mirtazapine (Remeron) 7.5 mg QHS PO 01/11/21 21:00 01/18/21 19:49 DC 01/17/21 19:38 Sertraline HCl (Zoloft) 75 mg DAILY PO 01/15/21 09:00 01/19/21 17:19 DC 01/19/21 08:14 Risperidone (RisperDAL) 0.5 mg QHS PO 01/14/21 21:00 01/20/21 19:47 Mirtazapine (Remeron Anum-Tab) 15 mg QHS PO 01/18/21 21:00 01/20/21 19:47 Sertraline HCl (Zoloft) 100 mg DAILY PO 01/20/21 09:00 01/20/21 08:27 Current Medications Medications (Trade) Dose Ordered Sig/Marguerite Route PRN Reason Start Time Stop Time Status Last Admin Dose Admin Sertraline HCl (Zoloft) 100 mg DAILY PO 01/20/21 09:00 01/20/21 08:27 I have reviewed the current psychotropics carefully including drug interactions. Risk benefit ratio favors no change other than as noted in my dictated progress note. Diagnosis: Problems: (1) Dementia in Alzheimer's disease with depression (2) Dementia in Alzheimer's disease with delusions (3) Dementia of the Alzheimer's type with early onset with behavioral disturbance (4) Major neurocognitive disorder (5) Impulse control disorder, unspecified (6) Anxiety disorder, unspecified (7) Dementia, vascular, with depression (8) Dementia, vascular, with delusions OFE MONTENEGRO MD Jan 21, 2021 06:46
[2021-01-21] MEDS: FUROSEMIDE 40 MG TABLET PO SCH (09:37)
[2021-01-21] MEDS: METOPROLOL TART IMMED RELEASE 50 MG TABLET PO SCH ×2 (09:37→19:41)
[2021-01-21] MEDS: risperiDONE 0.25 MG TABLET. PO SCH (09:37)
[2021-01-21] MEDS: SERTRALINE 100 MG TABLET. PO SCH (09:37)
[2021-01-21] MEDS: POTASSIUM CHLORIDE 20 MEQ TABLET.ER. PO SCH ×2 (09:38→19:40)
[2021-01-21] MEDS: POLYETHYLENE GLYCOL 3350 17 GM PACKET. PO SCH (09:40)
--- NOTE | 2021-01-21 14:16 | TX PLAN ---
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 Reasons for Admission: Aggressive, Agitated, Combative, Confusion/Disoriented, Poor impulse control Problem in Patient's Words: According to the intake, pt is aggressive to staff and peers, resistive and combative at times of care, bit a nurse, agitated, irritable and hostile. Problems Active Problems: agitated resistive impulsive non-compliant with medication Inactive Problems: N/A Pt Strengths/Limitations Ability for [place]: Poor Cognitive Functioning/Ability: Fair Communication Skills/Ability: Fair Financial Resources: Fair Insight/Judgement: Fair Intellectual Ability: Fair Physical Health: Poor Social Skills: Poor Stability in Family: Excellent Stability in School/Work: Poor Verbal Skills: Fair Discharge Criteria Discharge Criteria: No need for close observ., Adequate arrangements @DC, Improved behavior, Improved mood/thought Preliminary Discharge Plan Preliminary DC Plan: Placement Needed Special Precautions Fall Risk: Moderate Initial D/C Plan Pt will need a different level of care upon discharge Identified Discharge Needs: Referrals to placement Currently Utilized Resources Currently Utilized Resources/P: Primary Care Physician Identified Problems/Hx/Goals Objectives/Short-Term Goals Short Term Goals: Dec. Aggression, Dec. Outbursts, Medication Stabilization, Promote Coping Skill Short Term Goals in Patient's: N/A Interventions/Frequency Staff Interventions/Frequency&: Psychiatrist to assess pt at least 3x per week for medication stabilization. Social Work to assess pt at least 2x per week to identify barriers to care and finalize discharge plans. Nursing to assess medication effects, behavior management and complete 15 minute checks daily. Encourage group paricipation in activities (if applicable) or 1:1 engagement based off Activity Dept goals. 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 Education: Graduated 12th grade Community Follow-up Primary Care Physicain Treatment Plan Explained Patient/Medicaid Collection Specialist had this treatment plan explained to him/her as indicated by the signature below and has been given the opportunity to ask questions and make suggestions: Date: Patient/Medicaid Collection Specialist Signature: Patient/Medicaid Collection Specialist Decline: No (Pt family is very involved in pt care.) Status Update Update Please note, this is pt third treatment team since her admission on January 04, 2021. Pt son, Emiliano, participated in treatment team via phone. Pt is sleeping on average 6 hours per night and eating 50-75% of meals. Pt continues to be resistive with medications and at times cares; it is noted that pt has received medications through an oral syringe due to her refusal. Pt is sarcastic towards staff and at times agitated with redirection. Pt has attended two groups with minimal engagement but does need some redirection for behaviors. SW has noted that in sending records to [facility], they do not feel her behaviors are appropriate for her to be admitted just yet and would like to see more consistency. With that noted, Depakote Sprinkles 125mg at HS will be started, with labs and levels in three days. OPAL will continue to work with pt son on finalizing placement at [facility]. GALINA THOMSON Jan 21, 2021 14:16
[2021-01-21 16:13] VITALS: BP 128/51
[2021-01-21] MEDS: DIVALPROEX 125 MG CAP.SPRINK PO SCH (16:14)
[2021-01-21] MEDS: MELATONIN 3 MG TABLET PO SCH (19:40)
[2021-01-21] MEDS: ATORVASTATIN CALCIUM 10 MG TABLET. PO SCH (19:40)
[2021-01-21] MEDS: MIRTAZAPINE ODT 15 MG TAB.RAPDIS. PO SCH (19:41)
[2021-01-21] MEDS: risperiDONE 0.5 MG TABLET. PO SCH (19:41)
--- NOTE | 2021-01-21 22:20 | PDOC ---
Exam Note: Devang Note: Please also refer to the separate dictated note~for this date of service dictated separately.~Patient seen individually. Discussed the patient with Nursing staff reviewed the chart.~Reviewed interim history and current functioning. Reviewed vital signs,~Labs/ Radiology~and current medications noted below. Continue current treatment with the changes noted in the dictated addendum note Assessment: Vital Signs/I&O: Vital Signs Date Time Temp Pulse Resp B/P (MAP) Pulse Ox O2 Delivery O2 Flow Rate FiO2 01/21/21 19:41 66 128/51 01/21/21 16:13 97.5 16 95 01/21/21 06:04 Room Air I & O 01/20/21 01/20/21 01/21/21 15:00 23:00 07:00 Intake Total 480 ml 320 ml Balance 480 ml 320 ml Current Medications: Meds: Current Medications Medications (Trade) Dose Ordered Sig/Marguerite Route PRN Reason Start Time Stop Time Status Last Admin Dose Admin Potassium Chloride (Klor-Con) 40 meq 1X ONCE PO 01/04/21 19:00 01/04/21 19:07 DC 01/04/21 19:16 Acetaminophen (Tylenol) 500 mg PRN Q12HR PRN PO PAIN 01/04/21 23:00 Cancel Atorvastatin Calcium (Lipitor) 10 mg QHS PO 01/05/21 21:00 01/21/21 19:40 Furosemide (Lasix) 40 mg DAILY PO 01/05/21 09:00 01/21/21 09:37 Metoprolol Tartrate (Lopressor) 50 mg BID PO 01/05/21 09:00 01/21/21 19:41 Potassium Chloride (Klor-Con) 20 meq DAILY PO 01/05/21 09:00 01/11/21 15:00 DC 01/11/21 08:57 Polyethylene Glycol (miraLAX) 17 gm DAILY PO 01/05/21 09:00 01/21/21 09:40 Lorazepam (Ativan) 1 mg PRN Q4HRS PRN PO ANXIETY / AGITATION 01/04/21 23:00 01/09/21 10:42 DC 01/07/21 23:07 Lorazepam (Ativan Intensol) 1 mg PRN Q6HRS PRN PO ANXIETY / AGITATION 01/04/21 23:00 01/09/21 17:03 DC Risperidone (RisperDAL) 0.25 mg DAILY PO 01/05/21 09:00 01/21/21 09:37 Risperidone (RisperDAL) 0.5 mg QHS PO 01/05/21 21:00 01/08/21 17:27 DC 01/07/21 20:28 Melatonin (Melatonin) 6 mg HS PO 01/05/21 21:00 01/08/21 17:27 DC 01/07/21 20:28 Acetaminophen (Tylenol) 650 mg PRN Q6HRS PRN PO MILD PAIN / TEMP > 100.3'F 01/04/21 22:45 01/05/21 08:40 Multi-Ingredient Ointment (Analgesic [place]) 1 abby PRN QID PRN TP MUSCLE PAIN 01/04/21 22:45 Al Hydroxide/Mg Hydroxide (Mylanta Plus Xs) 15 ml PRN AFTMEALHC PRN PO DYSPEPSIA 01/04/21 22:45 Magnesium Hydroxide (Milk Of Magnesia) 2,400 mg PRN QHS PRN PO CONSTIPATION 01/04/21 22:45 Potassium Chloride (Klor-Con) 40 meq 1X ONCE PO 01/05/21 15:45 01/05/21 15:49 DC 01/05/21 17:29 Potassium Chloride (Klor-Con) 20 meq BID PO 01/05/21 21:00 01/21/21 19:40 Sertraline HCl (Zoloft) 25 mg DAILY PO 01/07/21 09:00 01/09/21 18:00 DC 01/09/21 08:24 Sertraline HCl (Zoloft) 50 mg DAILY PO 01/10/21 09:00 01/14/21 11:10 DC 01/14/21 08:11 Melatonin (Melatonin) 3 mg HS PO 01/08/21 21:00 01/21/21 19:40 Trazodone HCl (Desyrel) 50 mg PRN QHS PRN PO INSOMNIA MRX1 01/08/21 17:30 01/21/21 00:31 Risperidone (RisperDAL) 1 mg QHS PO 01/08/21 21:00 01/08/21 19:47 DC Olanzapine (ZyPREXA ZYDIS) 2.5 mg PRN Q2HRS PRN PO PSYCHOSIS 01/08/21 19:45 01/20/21 20:07 Risperidone (RisperDAL) 0.5 mg HS PO 01/08/21 21:00 01/08/21 19:58 DC Risperidone (RisperDAL) 0.25 mg HS PO 01/08/21 20:00 01/08/21 20:01 DC Risperidone (RisperDAL) 0.25 mg HS PO 01/08/21 21:00 01/14/21 11:11 DC 01/13/21 20:11 Lorazepam (Ativan Intensol) 0.25 mg PRN Q6HRS PRN PO ANXIETY / AGITATION 01/09/21 17:15 01/09/21 17:46 DC Lorazepam (Ativan Intensol) 0.25 mg PRN TID PRN PO ANXIETY / AGITATION 01/09/21 17:45 01/19/21 17:50 Trazodone HCl (Desyrel) 50 mg 1445 ONCE PO 01/11/21 14:45 01/11/21 14:54 DC Mirtazapine (Remeron) 7.5 mg QHS PO 01/11/21 21:00 01/18/21 19:49 DC 01/17/21 19:38 Sertraline HCl (Zoloft) 75 mg DAILY PO 01/15/21 09:00 01/19/21 17:19 DC 01/19/21 08:14 Risperidone (RisperDAL) 0.5 mg QHS PO 01/14/21 21:00 01/21/21 19:41 Mirtazapine (Remeron Anum-Tab) 15 mg QHS PO 01/18/21 21:00 01/21/21 19:41 Sertraline HCl (Zoloft) 100 mg DAILY PO 01/20/21 09:00 01/21/21 09:37 Divalproex Sodium (Depakote Sprinkles) 125 mg DAILY PO 01/22/21 09:00 Divalproex Sodium (Depakote Sprinkles) 125 mg DAILYWSUP PO 01/21/21 17:00 01/21/21 16:14 Current Medications Medications (Trade) Dose Ordered Sig/Marguerite Route PRN Reason Start Time Stop Time Status Last Admin Dose Admin Divalproex Sodium (Depakote Sprinkles) 125 mg DAILYWSUP PO 01/21/21 17:00 01/21/21 16:14 I have reviewed the current psychotropics carefully including drug interactions. Risk benefit ratio favors no change other than as noted in my dictated progress note. 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
[2021-01-22 06:36] VITALS: BP 171/72
--- NOTE | 2021-01-22 07:08 | PDOC ---
Exam Note: Devang Note: This note is a late entry for 01/21/2021 covers elements not covered in my initial note. Subjective: The patient was seen individually in the morning of 01/21/2021 for a treatment team meeting with Karli Villegas, Alejandra Pena (high school social studies tutor), Judith, activity therapy and Krysta MARIANO, discussed and reviewed the chart. The patient slept 7 hours previous night. The patients son Dennys attended the treatment team meeting. We had lengthy discussion about her diagnoses, progress, the fact that she may be accepted at [facility] where son wants her to go but only if she is psychiatrically, behaviourally more stable. Previous evening she was somewhat combative, resistive to cares, done better today. She has attended two groups in the past one week. Review of Systems: Ambulation impaired. No CV, , pulmonary, eye system symptoms on review. Mental Status Exam: The patient is oriented to herself. I met with her supper time. Insight and judgment, recent and remote memory, attention and concentration is poor consistent with her diagnoses. Laboratory Data: Reviewed. Impression: Major neurocognitive disorder Alzheimer vascular with delusion, depression, and behavioral disturbance. Anxiety disorder unspecified. Impulse control disorder unspecified. Plan: Continue psychotropics as noted above. Given the patients ongoing mood lability, we will start Depakote Sprinkle 125 mg 9 a.m. and 5 p.m. Check CBC, CMP, valproic acid level in 3 days. Rest unchanged for now. Assessment: Vital Signs/I&O: Vital Signs Date Time Temp Pulse Resp B/P (MAP) Pulse Ox O2 Delivery O2 Flow Rate FiO2 01/22/21 06:36 96.2 65 12 171/72 (105) 93 01/21/21 06:04 Room Air I & O 01/21/21 01/21/21 01/22/21 14:59 22:59 06:59 Intake Total 240 ml 240 ml Balance 240 ml 240 ml Current Medications: Meds: Current Medications Medications (Trade) Dose Ordered Sig/Marguerite Route PRN Reason Start Time Stop Time Status Last Admin Dose Admin Potassium Chloride (Klor-Con) 40 meq 1X ONCE PO 01/04/21 19:00 01/04/21 19:07 DC 01/04/21 19:16 Acetaminophen (Tylenol) 500 mg PRN Q12HR PRN PO PAIN 01/04/21 23:00 Cancel Atorvastatin Calcium (Lipitor) 10 mg QHS PO 01/05/21 21:00 01/21/21 19:40 Furosemide (Lasix) 40 mg DAILY PO 01/05/21 09:00 01/21/21 09:37 Metoprolol Tartrate (Lopressor) 50 mg BID PO 01/05/21 09:00 01/21/21 19:41 Potassium Chloride (Klor-Con) 20 meq DAILY PO 01/05/21 09:00 01/11/21 15:00 DC 01/11/21 08:57 Polyethylene Glycol (miraLAX) 17 gm DAILY PO 01/05/21 09:00 01/21/21 09:40 Lorazepam (Ativan) 1 mg PRN Q4HRS PRN PO ANXIETY / AGITATION 01/04/21 23:00 01/09/21 10:42 DC 01/07/21 23:07 Lorazepam (Ativan Intensol) 1 mg PRN Q6HRS PRN PO ANXIETY / AGITATION 01/04/21 23:00 01/09/21 17:03 DC Risperidone (RisperDAL) 0.25 mg DAILY PO 01/05/21 09:00 01/21/21 09:37 Risperidone (RisperDAL) 0.5 mg QHS PO 01/05/21 21:00 01/08/21 17:27 DC 01/07/21 20:28 Melatonin (Melatonin) 6 mg HS PO 01/05/21 21:00 01/08/21 17:27 DC 01/07/21 20:28 Acetaminophen (Tylenol) 650 mg PRN Q6HRS PRN PO MILD PAIN / TEMP > 100.3'F 01/04/21 22:45 01/05/21 08:40 Multi-Ingredient Ointment (Analgesic [place]) 1 abby PRN QID PRN TP MUSCLE PAIN 01/04/21 22:45 Al Hydroxide/Mg Hydroxide (Mylanta Plus Xs) 15 ml PRN AFTMEALHC PRN PO DYSPEPSIA 01/04/21 22:45 Magnesium Hydroxide (Milk Of Magnesia) 2,400 mg PRN QHS PRN PO CONSTIPATION 01/04/21 22:45 Potassium Chloride (Klor-Con) 40 meq 1X ONCE PO 01/05/21 15:45 01/05/21 15:49 DC 01/05/21 17:29 Potassium Chloride (Klor-Con) 20 meq BID PO 01/05/21 21:00 01/21/21 19:40 Sertraline HCl (Zoloft) 25 mg DAILY PO 01/07/21 09:00 01/09/21 18:00 DC 01/09/21 08:24 Sertraline HCl (Zoloft) 50 mg DAILY PO 01/10/21 09:00 01/14/21 11:10 DC 01/14/21 08:11 Melatonin (Melatonin) 3 mg HS PO 01/08/21 21:00 01/21/21 19:40 Trazodone HCl (Desyrel) 50 mg PRN QHS PRN PO INSOMNIA MRX1 01/08/21 17:30 01/21/21 00:31 Risperidone (RisperDAL) 1 mg QHS PO 01/08/21 21:00 01/08/21 19:47 DC Olanzapine (ZyPREXA ZYDIS) 2.5 mg PRN Q2HRS PRN PO PSYCHOSIS 01/08/21 19:45 01/20/21 20:07 Risperidone (RisperDAL) 0.5 mg HS PO 01/08/21 21:00 01/08/21 19:58 DC Risperidone (RisperDAL) 0.25 mg HS PO 01/08/21 20:00 01/08/21 20:01 DC Risperidone (RisperDAL) 0.25 mg HS PO 01/08/21 21:00 01/14/21 11:11 DC 01/13/21 20:11 Lorazepam (Ativan Intensol) 0.25 mg PRN Q6HRS PRN PO ANXIETY / AGITATION 01/09/21 17:15 01/09/21 17:46 DC Lorazepam (Ativan Intensol) 0.25 mg PRN TID PRN PO ANXIETY / AGITATION 01/09/21 17:45 01/19/21 17:50 Trazodone HCl (Desyrel) 50 mg 1445 ONCE PO 01/11/21 14:45 01/11/21 14:54 DC Mirtazapine (Remeron) 7.5 mg QHS PO 01/11/21 21:00 01/18/21 19:49 DC 01/17/21 19:38 Sertraline HCl (Zoloft) 75 mg DAILY PO 01/15/21 09:00 01/19/21 17:19 DC 01/19/21 08:14 Risperidone (RisperDAL) 0.5 mg QHS PO 01/14/21 21:00 01/21/21 19:41 Mirtazapine (Remeron Anum-Tab) 15 mg QHS PO 01/18/21 21:00 01/21/21 19:41 Sertraline HCl (Zoloft) 100 mg DAILY PO 01/20/21 09:00 01/21/21 09:37 Divalproex Sodium (Depakote Sprinkles) 125 mg DAILY PO 01/22/21 09:00 Divalproex Sodium (Depakote Sprinkles) 125 mg DAILYWSUP PO 01/21/21 17:00 01/21/21 16:14 Current Medications Medications (Trade) Dose Ordered Sig/Marguerite Route PRN Reason Start Time Stop Time Status Last Admin Dose Admin Divalproex Sodium (Depakote Sprinkles) 125 mg DAILYWSUP PO 01/21/21 17:00 01/21/21 16:14 I have reviewed the current psychotropics carefully including drug interactions. Risk benefit ratio favors no change other than as noted in my dictated progress note. 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
[2021-01-22] MEDS: FUROSEMIDE 40 MG TABLET PO SCH (08:35)
[2021-01-22] MEDS: SERTRALINE 100 MG TABLET. PO SCH (08:35)
[2021-01-22] MEDS: risperiDONE 0.25 MG TABLET. PO SCH (08:35)
[2021-01-22] MEDS: POTASSIUM CHLORIDE 20 MEQ TABLET.ER. PO SCH ×2 (08:35→20:24)
[2021-01-22] MEDS: METOPROLOL TART IMMED RELEASE 50 MG TABLET PO SCH ×2 (08:36→20:24)
[2021-01-22] MEDS: DIVALPROEX 125 MG CAP.SPRINK PO SCH ×2 (08:36→17:00)
[2021-01-22] MEDS: POLYETHYLENE GLYCOL 3350 17 GM PACKET. PO SCH (08:37)
[2021-01-22 15:58] VITALS: BP 177/76
[2021-01-22] MEDS: ATORVASTATIN CALCIUM 10 MG TABLET. PO SCH (20:24)
[2021-01-22] MEDS: MIRTAZAPINE ODT 15 MG TAB.RAPDIS. PO SCH (20:24)
[2021-01-22] MEDS: MELATONIN 3 MG TABLET PO SCH (20:24)
[2021-01-22] MEDS: risperiDONE 0.5 MG TABLET. PO SCH (20:24)
--- NOTE | 2021-01-22 22:07 | PDOC ---
Exam Note: Devang Note: Please also refer to the separate dictated note~for this date of service dictated separately.~Patient seen individually. Discussed the patient with Nursing staff reviewed the chart.~Reviewed interim history and current functioning. Reviewed vital signs,~Labs/ Radiology~and current medications noted below. Continue current treatment with the changes noted in the dictated addendum note Assessment: Vital Signs/I&O: Vital Signs Date Time Temp Pulse Resp B/P (MAP) Pulse Ox O2 Delivery O2 Flow Rate FiO2 01/22/21 20:24 80 177/76 01/22/21 15:58 98.3 18 95 01/21/21 06:04 Room Air I & O 01/21/21 01/21/21 01/22/21 14:59 22:59 06:59 Intake Total 240 ml 240 ml Balance 240 ml 240 ml Current Medications: Meds: Current Medications Medications (Trade) Dose Ordered Sig/Marguerite Route PRN Reason Start Time Stop Time Status Last Admin Dose Admin Potassium Chloride (Klor-Con) 40 meq 1X ONCE PO 01/04/21 19:00 01/04/21 19:07 DC 01/04/21 19:16 Acetaminophen (Tylenol) 500 mg PRN Q12HR PRN PO PAIN 01/04/21 23:00 Cancel Atorvastatin Calcium (Lipitor) 10 mg QHS PO 01/05/21 21:00 01/22/21 20:24 Furosemide (Lasix) 40 mg DAILY PO 01/05/21 09:00 01/22/21 08:35 Metoprolol Tartrate (Lopressor) 50 mg BID PO 01/05/21 09:00 01/22/21 20:24 Potassium Chloride (Klor-Con) 20 meq DAILY PO 01/05/21 09:00 01/11/21 15:00 DC 01/11/21 08:57 Polyethylene Glycol (miraLAX) 17 gm DAILY PO 01/05/21 09:00 01/22/21 08:37 Lorazepam (Ativan) 1 mg PRN Q4HRS PRN PO ANXIETY / AGITATION 01/04/21 23:00 01/09/21 10:42 DC 01/07/21 23:07 Lorazepam (Ativan Intensol) 1 mg PRN Q6HRS PRN PO ANXIETY / AGITATION 01/04/21 23:00 01/09/21 17:03 DC Risperidone (RisperDAL) 0.25 mg DAILY PO 01/05/21 09:00 01/22/21 17:34 DC 01/22/21 08:35 Risperidone (RisperDAL) 0.5 mg QHS PO 01/05/21 21:00 01/08/21 17:27 DC 01/07/21 20:28 Melatonin (Melatonin) 6 mg HS PO 01/05/21 21:00 01/08/21 17:27 DC 01/07/21 20:28 Acetaminophen (Tylenol) 650 mg PRN Q6HRS PRN PO MILD PAIN / TEMP > 100.3'F 01/04/21 22:45 01/05/21 08:40 Multi-Ingredient Ointment (Analgesic [place]) 1 abby PRN QID PRN TP MUSCLE PAIN 01/04/21 22:45 Al Hydroxide/Mg Hydroxide (Mylanta Plus Xs) 15 ml PRN AFTMEALHC PRN PO DYSPEPSIA 01/04/21 22:45 Magnesium Hydroxide (Milk Of Magnesia) 2,400 mg PRN QHS PRN PO CONSTIPATION 01/04/21 22:45 Potassium Chloride (Klor-Con) 40 meq 1X ONCE PO 01/05/21 15:45 01/05/21 15:49 DC 01/05/21 17:29 Potassium Chloride (Klor-Con) 20 meq BID PO 01/05/21 21:00 01/22/21 20:24 Sertraline HCl (Zoloft) 25 mg DAILY PO 01/07/21 09:00 01/09/21 18:00 DC 01/09/21 08:24 Sertraline HCl (Zoloft) 50 mg DAILY PO 01/10/21 09:00 01/14/21 11:10 DC 01/14/21 08:11 Melatonin (Melatonin) 3 mg HS PO 01/08/21 21:00 01/22/21 20:24 Trazodone HCl (Desyrel) 50 mg PRN QHS PRN PO INSOMNIA MRX1 01/08/21 17:30 01/21/21 00:31 Risperidone (RisperDAL) 1 mg QHS PO 01/08/21 21:00 01/08/21 19:47 DC Olanzapine (ZyPREXA ZYDIS) 2.5 mg PRN Q2HRS PRN PO PSYCHOSIS 01/08/21 19:45 01/22/21 15:30 Risperidone (RisperDAL) 0.5 mg HS PO 01/08/21 21:00 01/08/21 19:58 DC Risperidone (RisperDAL) 0.25 mg HS PO 01/08/21 20:00 01/08/21 20:01 DC Risperidone (RisperDAL) 0.25 mg HS PO 01/08/21 21:00 01/14/21 11:11 DC 01/13/21 20:11 Lorazepam (Ativan Intensol) 0.25 mg PRN Q6HRS PRN PO ANXIETY / AGITATION 01/09/21 17:15 01/09/21 17:46 DC Lorazepam (Ativan Intensol) 0.25 mg PRN TID PRN PO ANXIETY / AGITATION 01/09/21 17:45 01/19/21 17:50 Trazodone HCl (Desyrel) 50 mg 1445 ONCE PO 01/11/21 14:45 01/11/21 14:54 DC Mirtazapine (Remeron) 7.5 mg QHS PO 01/11/21 21:00 01/18/21 19:49 DC 01/17/21 19:38 Sertraline HCl (Zoloft) 75 mg DAILY PO 01/15/21 09:00 01/19/21 17:19 DC 01/19/21 08:14 Risperidone (RisperDAL) 0.5 mg QHS PO 01/14/21 21:00 01/22/21 20:24 Mirtazapine (Remeron Anum-Tab) 15 mg QHS PO 01/18/21 21:00 01/22/21 20:24 Sertraline HCl (Zoloft) 100 mg DAILY PO 01/20/21 09:00 01/22/21 08:35 Divalproex Sodium (Depakote Sprinkles) 125 mg DAILY PO 01/22/21 09:00 01/22/21 08:36 Divalproex Sodium (Depakote Sprinkles) 125 mg DAILYWSUP PO 01/21/21 17:00 01/22/21 17:00 Risperidone (RisperDAL) 0.5 mg DAILY PO 01/23/21 09:00 Current Medications Medications (Trade) Dose Ordered Sig/Marguerite Route PRN Reason Start Time Stop Time Status Last Admin Dose Admin Divalproex Sodium (Depakote Sprinkles) 125 mg DAILY PO 01/22/21 09:00 01/22/21 08:36 I have reviewed the current psychotropics carefully including drug interactions. Risk benefit ratio favors no change other than as noted in my dictated progress note. 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
[2021-01-23 06:26] VITALS: BP 168/73
[2021-01-23 06:50] LABS: BASO # 0.1 x10^3/uL (0.0-0.2); BASO % 2 % (0-3); EOS # 0.4 x10^3/uL (0.0-0.7); EOS % 10 % (0-3); HEMATOCRIT 32.1 % (36.0-47.0); HEMOGLOBIN 10.6 g/dL (12.0-15.5); LYMPH # 0.8 x10^3/uL (1.0-4.8); LYMPH % 24 % (24-48); MEAN CORPUSCULAR HEMOGLOBIN 33 pg (25-35); MEAN CORPUSCULAR HGB CONC 33 g/dL (31-37); MEAN CORPUSCULAR VOLUME 100 fL (79-100); MONO # 0.5 x10^3/uL (0.0-1.1); MONO % 15 % (0-9); NEUT # 1.7 x10^3uL (1.8-7.7); NEUT % 49 % (31-73); PLATELET COUNT 227 x10^3/uL (140-400); RED BLOOD COUNT 3.22 x10^6/uL (3.50-5.40); RED CELL DISTRIBUTION WIDTH 16.1 % (11.5-14.5); WHITE BLOOD COUNT 3.5 x10^3/uL (4.0-11.0)
[2021-01-23 07:26] LABS: ALBUMIN 3.5 g/dL (3.4-5.0); ALBUMIN/GLOBULIN RATIO 0.9 (1.0-1.7); CREATININE 0.8 mg/dL (0.6-1.0); POTASSIUM 3.8 mmol/L (3.5-5.1); TOTAL BILIRUBIN 0.5 mg/dL (0.2-1.0); TOTAL PROTEIN 7.3 g/dL (6.4-8.2)
[2021-01-23 07:30] LABS: VAL ACID 17 mcg/mL (50-100)
[2021-01-23] MEDS: risperiDONE 0.5 MG TABLET. PO SCH ×2 (09:00→19:18)
[2021-01-23] MEDS: DIVALPROEX 125 MG CAP.SPRINK PO SCH ×2 (09:00→17:36)
[2021-01-23] MEDS: METOPROLOL TART IMMED RELEASE 50 MG TABLET PO SCH ×2 (09:00→19:13)
[2021-01-23] MEDS: POTASSIUM CHLORIDE 20 MEQ TABLET.ER. PO SCH ×2 (09:00→19:18)
[2021-01-23] MEDS: FUROSEMIDE 40 MG TABLET PO SCH (09:00)
[2021-01-23] MEDS: SERTRALINE 100 MG TABLET. PO SCH (09:00)
[2021-01-23] MEDS: POLYETHYLENE GLYCOL 3350 17 GM PACKET. PO SCH (09:00)
[2021-01-23 16:04] VITALS: BP 120/55
[2021-01-23] MEDS: MELATONIN 3 MG TABLET PO SCH (19:12)
[2021-01-23] MEDS: MIRTAZAPINE ODT 15 MG TAB.RAPDIS. PO SCH (19:13)
[2021-01-23] MEDS: ATORVASTATIN CALCIUM 10 MG TABLET. PO SCH (19:13)
--- NOTE | 2021-01-23 22:19 | PDOC ---
Exam Note: Devang Note: Please also refer to the separate dictated note~for this date of service dictated separately.~Patient seen individually. Discussed the patient with Nursing staff reviewed the chart.~Reviewed interim history and current functioning. Reviewed vital signs,~Labs/ Radiology~and current medications noted below. Continue current treatment with the changes noted in the dictated addendum note Assessment: Vital Signs/I&O: Vital Signs Date Time Temp Pulse Resp B/P (MAP) Pulse Ox O2 Delivery O2 Flow Rate FiO2 01/23/21 19:13 66 120/55 01/23/21 16:04 97.1 16 96 01/21/21 06:04 Room Air I & O 01/22/21 01/22/21 01/23/21 15:00 23:00 07:00 Intake Total 840 ml 720 ml Balance 840 ml 720 ml Labs: Laboratory Tests Test 01/23/21 06:15 White Blood Count 3.5 x10^3/uL (4.0-11.0) L Red Blood Count 3.22 x10^6/uL (3.50-5.40) L Hemoglobin 10.6 g/dL (12.0-15.5) L Hematocrit 32.1 % (36.0-47.0) L Mean Corpuscular Volume 100 fL (79-100) Mean Corpuscular Hemoglobin 33 pg (25-35) Mean Corpuscular Hemoglobin Concent 33 g/dL (31-37) Red Cell Distribution Width 16.1 % (11.5-14.5) H Platelet Count 227 x10^3/uL (140-400) Neutrophils (%) (Auto) 49 % (31-73) Lymphocytes (%) (Auto) 24 % (24-48) Monocytes (%) (Auto) 15 % (0-9) H Eosinophils (%) (Auto) 10 % (0-3) H Basophils (%) (Auto) 2 % (0-3) Neutrophils # (Auto) 1.7 x10^3uL (1.8-7.7) L Lymphocytes # (Auto) 0.8 x10^3/uL (1.0-4.8) L Monocytes # (Auto) 0.5 x10^3/uL (0.0-1.1) Eosinophils # (Auto) 0.4 x10^3/uL (0.0-0.7) Basophils # (Auto) 0.1 x10^3/uL (0.0-0.2) Sodium Level 143 mmol/L (136-145) Potassium Level 3.8 mmol/L (3.5-5.1) Chloride Level 105 mmol/L (98-107) Carbon Dioxide Level 30 mmol/L (21-32) Anion Gap 8 (6-14) Blood Urea Nitrogen 27 mg/dL (7-20) H Creatinine 0.8 mg/dL (0.6-1.0) Estimated GFR (Cockcroft-Gault) 68.0 BUN/Creatinine Ratio 34 (6-20) H Glucose Level 82 mg/dL (70-99) Calcium Level 9.0 mg/dL (8.5-10.1) Total Bilirubin 0.5 mg/dL (0.2-1.0) Aspartate Amino Transferase (AST) 17 U/L (15-37) Alanine Aminotransferase (ALT) 26 U/L (14-59) Alkaline Phosphatase 62 U/L (46-116) Total Protein 7.3 g/dL (6.4-8.2) Albumin 3.5 g/dL (3.4-5.0) Albumin/Globulin Ratio 0.9 (1.0-1.7) L Valproic Acid Level 17 mcg/mL (50-100) L Valproic Acid Last Dose Date 01/22/21 Valproic Acid Last Dose Time 1700 Current Medications: Meds: Laboratory Tests Test 01/23/21 06:15 White Blood Count 3.5 x10^3/uL Red Blood Count 3.22 x10^6/uL Hemoglobin 10.6 g/dL Hematocrit 32.1 % Mean Corpuscular Volume 100 fL Mean Corpuscular Hemoglobin 33 pg Mean Corpuscular Hemoglobin Concent 33 g/dL Red Cell Distribution Width 16.1 % Platelet Count 227 x10^3/uL Neutrophils (%) (Auto) 49 % Lymphocytes (%) (Auto) 24 % Monocytes (%) (Auto) 15 % Eosinophils (%) (Auto) 10 % Basophils (%) (Auto) 2 % Neutrophils # (Auto) 1.7 x10^3uL Lymphocytes # (Auto) 0.8 x10^3/uL Monocytes # (Auto) 0.5 x10^3/uL Eosinophils # (Auto) 0.4 x10^3/uL Basophils # (Auto) 0.1 x10^3/uL Sodium Level 143 mmol/L Potassium Level 3.8 mmol/L Chloride Level 105 mmol/L Carbon Dioxide Level 30 mmol/L Anion Gap 8 Blood Urea Nitrogen 27 mg/dL Creatinine 0.8 mg/dL Estimated GFR (Cockcroft-Gault) 68.0 BUN/Creatinine Ratio 34 Glucose Level 82 mg/dL Calcium Level 9.0 mg/dL Total Bilirubin 0.5 mg/dL Aspartate Amino Transf (AST/SGOT) 17 U/L Alanine Aminotransferase (ALT/SGPT) 26 U/L Alkaline Phosphatase 62 U/L Total Protein 7.3 g/dL Albumin 3.5 g/dL Albumin/Globulin Ratio 0.9 Valproic Acid (Depakene) Level 17 mcg/mL Valproic Acid Last Dose Date 01/22/21 Valproic Acid Last Dose Time 1700 Current Medications Medications (Trade) Dose Ordered Sig/Marguerite Route PRN Reason Start Time Stop Time Status Last Admin Dose Admin Potassium Chloride (Klor-Con) 40 meq 1X ONCE PO 01/04/21 19:00 01/04/21 19:07 DC 01/04/21 19:16 Acetaminophen (Tylenol) 500 mg PRN Q12HR PRN PO PAIN 01/04/21 23:00 Cancel Atorvastatin Calcium (Lipitor) 10 mg QHS PO 01/05/21 21:00 01/23/21 19:13 Furosemide (Lasix) 40 mg DAILY PO 01/05/21 09:00 01/23/21 09:00 Metoprolol Tartrate (Lopressor) 50 mg BID PO 01/05/21 09:00 01/23/21 19:13 Potassium Chloride (Klor-Con) 20 meq DAILY PO 01/05/21 09:00 01/11/21 15:00 DC 01/11/21 08:57 Polyethylene Glycol (miraLAX) 17 gm DAILY PO 01/05/21 09:00 01/23/21 09:00 Lorazepam (Ativan) 1 mg PRN Q4HRS PRN PO ANXIETY / AGITATION 01/04/21 23:00 01/09/21 10:42 DC 01/07/21 23:07 Lorazepam (Ativan Intensol) 1 mg PRN Q6HRS PRN PO ANXIETY / AGITATION 01/04/21 23:00 01/09/21 17:03 DC Risperidone (RisperDAL) 0.25 mg DAILY PO 01/05/21 09:00 01/22/21 17:34 DC 01/22/21 08:35 Risperidone (RisperDAL) 0.5 mg QHS PO 01/05/21 21:00 01/08/21 17:27 DC 01/07/21 20:28 Melatonin (Melatonin) 6 mg HS PO 01/05/21 21:00 01/08/21 17:27 DC 01/07/21 20:28 Acetaminophen (Tylenol) 650 mg PRN Q6HRS PRN PO MILD PAIN / TEMP > 100.3'F 01/04/21 22:45 01/05/21 08:40 Multi-Ingredient Ointment (Analgesic [place]) 1 abby PRN QID PRN TP MUSCLE PAIN 01/04/21 22:45 Al Hydroxide/Mg Hydroxide (Mylanta Plus Xs) 15 ml PRN AFTMEALHC PRN PO DYSPEPSIA 01/04/21 22:45 Magnesium Hydroxide (Milk Of Magnesia) 2,400 mg PRN QHS PRN PO CONSTIPATION 01/04/21 22:45 Potassium Chloride (Klor-Con) 40 meq 1X ONCE PO 01/05/21 15:45 01/05/21 15:49 DC 01/05/21 17:29 Potassium Chloride (Klor-Con) 20 meq BID PO 01/05/21 21:00 01/23/21 19:18 Sertraline HCl (Zoloft) 25 mg DAILY PO 01/07/21 09:00 01/09/21 18:00 DC 01/09/21 08:24 Sertraline HCl (Zoloft) 50 mg DAILY PO 01/10/21 09:00 01/14/21 11:10 DC 01/14/21 08:11 Melatonin (Melatonin) 3 mg HS PO 01/08/21 21:00 01/23/21 19:12 Trazodone HCl (Desyrel) 50 mg PRN QHS PRN PO INSOMNIA MRX1 01/08/21 17:30 01/21/21 00:31 Risperidone (RisperDAL) 1 mg QHS PO 01/08/21 21:00 01/08/21 19:47 DC Olanzapine (ZyPREXA ZYDIS) 2.5 mg PRN Q2HRS PRN PO PSYCHOSIS 01/08/21 19:45 01/22/21 15:30 Risperidone (RisperDAL) 0.5 mg HS PO 01/08/21 21:00 01/08/21 19:58 DC Risperidone (RisperDAL) 0.25 mg HS PO 01/08/21 20:00 01/08/21 20:01 DC Risperidone (RisperDAL) 0.25 mg HS PO 01/08/21 21:00 01/14/21 11:11 DC 01/13/21 20:11 Lorazepam (Ativan Intensol) 0.25 mg PRN Q6HRS PRN PO ANXIETY / AGITATION 01/09/21 17:15 01/09/21 17:46 DC Lorazepam (Ativan Intensol) 0.25 mg PRN TID PRN PO ANXIETY / AGITATION 01/09/21 17:45 01/19/21 17:50 Trazodone HCl (Desyrel) 50 mg 1445 ONCE PO 01/11/21 14:45 01/11/21 14:54 DC Mirtazapine (Remeron) 7.5 mg QHS PO 01/11/21 21:00 01/18/21 19:49 DC 01/17/21 19:38 Sertraline HCl (Zoloft) 75 mg DAILY PO 01/15/21 09:00 01/19/21 17:19 DC 01/19/21 08:14 Risperidone (RisperDAL) 0.5 mg QHS PO 01/14/21 21:00 01/23/21 19:18 Mirtazapine (Remeron Anum-Tab) 15 mg QHS PO 01/18/21 21:00 01/23/21 19:13 Sertraline HCl (Zoloft) 100 mg DAILY PO 01/20/21 09:00 01/23/21 09:00 Divalproex Sodium (Depakote Sprinkles) 125 mg DAILY PO 01/22/21 09:00 01/23/21 09:00 Divalproex Sodium (Depakote Sprinkles) 125 mg DAILYWSUP PO 01/21/21 17:00 01/23/21 17:36 Risperidone (RisperDAL) 0.5 mg DAILY PO 01/23/21 09:00 01/23/21 09:00 Current Medications Medications (Trade) Dose Ordered Sig/Marguerite Route PRN Reason Start Time Stop Time Status Last Admin Dose Admin Risperidone (RisperDAL) 0.5 mg DAILY PO 01/23/21 09:00 01/23/21 09:00 I have reviewed the current psychotropics carefully including drug interactions. Risk benefit ratio favors no change other than as noted in my dictated progress note. Diagnosis: Problems: (1) Dementia in Alzheimer's disease with depression (2) Dementia in Alzheimer's disease with delusions (3) Dementia of the Alzheimer's type with early onset with behavioral disturbance (4) Major neurocognitive disorder (5) Impulse control disorder, unspecified (6) Anxiety disorder, unspecified (7) Dementia, vascular, with depression (8) Dementia, vascular, with delusions OFE MONTENEGRO MD Jan 23, 2021 22:19
[2021-01-24 05:54] VITALS: BP 143/68
--- NOTE | 2021-01-24 08:18 | PDOC ---
Exam Note: Devang Note: This note is a late entry for 01/22/2021 covers elements not covered in my initial note. Subjective: The patient was seen individually in the evening of 01/22/2021 with Dawood MARIANO, discussed and reviewed the chart. The patient slept 8 hours previous night. The patient remains confused, somewhat delusional, was compliant with medications in the morning. Appetite remains poor. In the evening she was looking for her parents stating she had to go to high school reunion and then was agitated and paranoid. Zyprexa had to be syringed. She believes are captive here by the nursing staff. I addressed this at length. She seemed to recognize me as a doctor. Review of Systems: Ambulation impaired. No CV, , pulmonary, eye system symptoms on review. Mental Status Exam: The patient is oriented to herself. I met with her supper time. Insight and judgment, recent and remote memory, attention and concentration is poor consistent with her diagnoses. Laboratory Data: Reviewed. Impression: Major neurocognitive disorder Alzheimer vascular with delusion, depression, and behavioral disturbance. Anxiety disorder unspecified. Impulse control disorder unspecified. Plan: Continue psychotropics as noted above. Given some of her delusions, we will go ahead and increase the Risperdal from 0.25 mg a.m. and 0.5 mg h.s. to 0.5 mg twice a day. I have carefully reviewed risk-benefit ratio including her age but seems to be the best choice. Continue Depakote for now. Check labs and valproic acid level on 01/24 and then adjust. Assessment: Vital Signs/I&O: Vital Signs Date Time Temp Pulse Resp B/P (MAP) Pulse Ox O2 Delivery O2 Flow Rate FiO2 01/24/21 05:54 99.1 76 18 143/68 (93) 90 01/21/21 06:04 Room Air I & O 01/23/21 01/23/21 01/24/21 15:00 23:00 07:00 Intake Total 720 ml 480 ml Balance 720 ml 480 ml Current Medications: Meds: Current Medications Medications (Trade) Dose Ordered Sig/Marguerite Route PRN Reason Start Time Stop Time Status Last Admin Dose Admin Potassium Chloride (Klor-Con) 40 meq 1X ONCE PO 01/04/21 19:00 01/04/21 19:07 DC 01/04/21 19:16 Acetaminophen (Tylenol) 500 mg PRN Q12HR PRN PO PAIN 01/04/21 23:00 Cancel Atorvastatin Calcium (Lipitor) 10 mg QHS PO 01/05/21 21:00 01/23/21 19:13 Furosemide (Lasix) 40 mg DAILY PO 01/05/21 09:00 01/23/21 09:00 Metoprolol Tartrate (Lopressor) 50 mg BID PO 01/05/21 09:00 01/23/21 19:13 Potassium Chloride (Klor-Con) 20 meq DAILY PO 01/05/21 09:00 01/11/21 15:00 DC 01/11/21 08:57 Polyethylene Glycol (miraLAX) 17 gm DAILY PO 01/05/21 09:00 01/23/21 09:00 Lorazepam (Ativan) 1 mg PRN Q4HRS PRN PO ANXIETY / AGITATION 01/04/21 23:00 01/09/21 10:42 DC 01/07/21 23:07 Lorazepam (Ativan Intensol) 1 mg PRN Q6HRS PRN PO ANXIETY / AGITATION 01/04/21 23:00 01/09/21 17:03 DC Risperidone (RisperDAL) 0.25 mg DAILY PO 01/05/21 09:00 01/22/21 17:34 DC 01/22/21 08:35 Risperidone (RisperDAL) 0.5 mg QHS PO 01/05/21 21:00 01/08/21 17:27 DC 01/07/21 20:28 Melatonin (Melatonin) 6 mg HS PO 01/05/21 21:00 01/08/21 17:27 DC 01/07/21 20:28 Acetaminophen (Tylenol) 650 mg PRN Q6HRS PRN PO MILD PAIN / TEMP > 100.3'F 01/04/21 22:45 01/05/21 08:40 Multi-Ingredient Ointment (Analgesic [place]) 1 abby PRN QID PRN TP MUSCLE PAIN 01/04/21 22:45 Al Hydroxide/Mg Hydroxide (Mylanta Plus Xs) 15 ml PRN AFTMEALHC PRN PO DYSPEPSIA 01/04/21 22:45 Magnesium Hydroxide (Milk Of Magnesia) 2,400 mg PRN QHS PRN PO CONSTIPATION 01/04/21 22:45 Potassium Chloride (Klor-Con) 40 meq 1X ONCE PO 01/05/21 15:45 01/05/21 15:49 DC 01/05/21 17:29 Potassium Chloride (Klor-Con) 20 meq BID PO 01/05/21 21:00 01/23/21 19:18 Sertraline HCl (Zoloft) 25 mg DAILY PO 01/07/21 09:00 01/09/21 18:00 DC 01/09/21 08:24 Sertraline HCl (Zoloft) 50 mg DAILY PO 01/10/21 09:00 01/14/21 11:10 DC 01/14/21 08:11 Melatonin (Melatonin) 3 mg HS PO 01/08/21 21:00 01/23/21 19:12 Trazodone HCl (Desyrel) 50 mg PRN QHS PRN PO INSOMNIA MRX1 01/08/21 17:30 01/21/21 00:31 Risperidone (RisperDAL) 1 mg QHS PO 01/08/21 21:00 01/08/21 19:47 DC Olanzapine (ZyPREXA ZYDIS) 2.5 mg PRN Q2HRS PRN PO PSYCHOSIS 01/08/21 19:45 01/22/21 15:30 Risperidone (RisperDAL) 0.5 mg HS PO 01/08/21 21:00 01/08/21 19:58 DC Risperidone (RisperDAL) 0.25 mg HS PO 01/08/21 20:00 01/08/21 20:01 DC Risperidone (RisperDAL) 0.25 mg HS PO 01/08/21 21:00 01/14/21 11:11 DC 01/13/21 20:11 Lorazepam (Ativan Intensol) 0.25 mg PRN Q6HRS PRN PO ANXIETY / AGITATION 01/09/21 17:15 01/09/21 17:46 DC Lorazepam (Ativan Intensol) 0.25 mg PRN TID PRN PO ANXIETY / AGITATION 01/09/21 17:45 01/19/21 17:50 Trazodone HCl (Desyrel) 50 mg 1445 ONCE PO 01/11/21 14:45 01/11/21 14:54 DC Mirtazapine (Remeron) 7.5 mg QHS PO 01/11/21 21:00 01/18/21 19:49 DC 01/17/21 19:38 Sertraline HCl (Zoloft) 75 mg DAILY PO 01/15/21 09:00 01/19/21 17:19 DC 01/19/21 08:14 Risperidone (RisperDAL) 0.5 mg QHS PO 01/14/21 21:00 01/23/21 19:18 Mirtazapine (Remeron Anum-Tab) 15 mg QHS PO 01/18/21 21:00 01/23/21 19:13 Sertraline HCl (Zoloft) 100 mg DAILY PO 01/20/21 09:00 01/23/21 09:00 Divalproex Sodium (Depakote Sprinkles) 125 mg DAILY PO 01/22/21 09:00 01/23/21 09:00 Divalproex Sodium (Depakote Sprinkles) 125 mg DAILYWSUP PO 01/21/21 17:00 01/23/21 17:36 Risperidone (RisperDAL) 0.5 mg DAILY PO 01/23/21 09:00 01/23/21 09:00 Current Medications Medications (Trade) Dose Ordered Sig/Marguerite Route PRN Reason Start Time Stop Time Status Last Admin Dose Admin Risperidone (RisperDAL) 0.5 mg DAILY PO 01/23/21 09:00 01/23/21 09:00 I have reviewed the current psychotropics carefully including drug interactions. Risk benefit ratio favors no change other than as noted in my dictated progress note. Diagnosis: Problems: (1) Dementia in Alzheimer's disease with depression (2) Dementia in Alzheimer's disease with delusions (3) Dementia of the Alzheimer's type with early onset with behavioral disturbance (4) Major neurocognitive disorder (5) Impulse control disorder, unspecified (6) Anxiety disorder, unspecified (7) Dementia, vascular, with depression (8) Dementia, vascular, with delusions OFE MONTENEGRO MD Jan 24, 2021 08:18
[2021-01-24] MEDS: POLYETHYLENE GLYCOL 3350 17 GM PACKET. PO SCH (08:24)
[2021-01-24] MEDS: FUROSEMIDE 40 MG TABLET PO SCH (08:27)
[2021-01-24] MEDS: SERTRALINE 100 MG TABLET. PO SCH (08:28)
[2021-01-24] MEDS: POTASSIUM CHLORIDE 20 MEQ TABLET.ER. PO SCH ×2 (08:28→20:24)
[2021-01-24] MEDS: risperiDONE 0.5 MG TABLET. PO SCH ×2 (08:28→20:24)
[2021-01-24] MEDS: DIVALPROEX 125 MG CAP.SPRINK PO SCH ×2 (08:28→17:02)
[2021-01-24] MEDS: METOPROLOL TART IMMED RELEASE 50 MG TABLET PO SCH ×2 (08:28→20:25)
--- NOTE | 2021-01-24 08:40 | PDOC ---
Exam Note: Devang Note: This note is a late entry for 01/23/2021 covers elements not covered in my initial note. Subjective: The patient was seen individually in the evening of 01/23/2021 with Dawood MARIANO, discussed and reviewed the chart. The patient slept 5 hours previous night. Valproic acid level subtherapeutic at 17. Her son visited, feels patient is better. The patient feels her pills were in the unit. People on the unit are trying to kill her. I addressed this with her. She was less paranoid later. Review of Systems: Ambulation impaired. Gait unsteady. No CV, , pulmonary, eye system symptoms on review. Mental Status Exam: The patient is oriented to herself. Insight and judgment, recent and remote memory, attention and concentration is poor consistent with her diagnoses. She was quite animated as I met with her. Laboratory Data: Reviewed. Impression: Major neurocognitive disorder Alzheimer vascular with delusion, depression, and behavioral disturbance. Anxiety disorder unspecified. Impulse control disorder unspecified. Plan: Continue psychotropics as noted above. Assessment: Vital Signs/I&O: Vital Signs Date Time Temp Pulse Resp B/P (MAP) Pulse Ox O2 Delivery O2 Flow Rate FiO2 01/24/21 08:28 76 143/68 01/24/21 05:54 99.1 18 90 01/21/21 06:04 Room Air I & O 01/23/21 01/23/21 01/24/21 15:00 23:00 07:00 Intake Total 720 ml 480 ml Balance 720 ml 480 ml Current Medications: Meds: Current Medications Medications (Trade) Dose Ordered Sig/Marguerite Route PRN Reason Start Time Stop Time Status Last Admin Dose Admin Potassium Chloride (Klor-Con) 40 meq 1X ONCE PO 01/04/21 19:00 01/04/21 19:07 DC 01/04/21 19:16 Acetaminophen (Tylenol) 500 mg PRN Q12HR PRN PO PAIN 01/04/21 23:00 Cancel Atorvastatin Calcium (Lipitor) 10 mg QHS PO 01/05/21 21:00 01/23/21 19:13 Furosemide (Lasix) 40 mg DAILY PO 01/05/21 09:00 01/24/21 08:27 Metoprolol Tartrate (Lopressor) 50 mg BID PO 01/05/21 09:00 01/24/21 08:28 Potassium Chloride (Klor-Con) 20 meq DAILY PO 01/05/21 09:00 01/11/21 15:00 DC 01/11/21 08:57 Polyethylene Glycol (miraLAX) 17 gm DAILY PO 01/05/21 09:00 01/24/21 08:24 Lorazepam (Ativan) 1 mg PRN Q4HRS PRN PO ANXIETY / AGITATION 01/04/21 23:00 01/09/21 10:42 DC 01/07/21 23:07 Lorazepam (Ativan Intensol) 1 mg PRN Q6HRS PRN PO ANXIETY / AGITATION 01/04/21 23:00 01/09/21 17:03 DC Risperidone (RisperDAL) 0.25 mg DAILY PO 01/05/21 09:00 01/22/21 17:34 DC 01/22/21 08:35 Risperidone (RisperDAL) 0.5 mg QHS PO 01/05/21 21:00 01/08/21 17:27 DC 01/07/21 20:28 Melatonin (Melatonin) 6 mg HS PO 01/05/21 21:00 01/08/21 17:27 DC 01/07/21 20:28 Acetaminophen (Tylenol) 650 mg PRN Q6HRS PRN PO MILD PAIN / TEMP > 100.3'F 01/04/21 22:45 01/05/21 08:40 Multi-Ingredient Ointment (Analgesic [place]) 1 abby PRN QID PRN TP MUSCLE PAIN 01/04/21 22:45 Al Hydroxide/Mg Hydroxide (Mylanta Plus Xs) 15 ml PRN AFTMEALHC PRN PO DYSPEPSIA 01/04/21 22:45 Magnesium Hydroxide (Milk Of Magnesia) 2,400 mg PRN QHS PRN PO CONSTIPATION 01/04/21 22:45 Potassium Chloride (Klor-Con) 40 meq 1X ONCE PO 01/05/21 15:45 01/05/21 15:49 DC 01/05/21 17:29 Potassium Chloride (Klor-Con) 20 meq BID PO 01/05/21 21:00 01/24/21 08:28 Sertraline HCl (Zoloft) 25 mg DAILY PO 01/07/21 09:00 01/09/21 18:00 DC 01/09/21 08:24 Sertraline HCl (Zoloft) 50 mg DAILY PO 01/10/21 09:00 01/14/21 11:10 DC 01/14/21 08:11 Melatonin (Melatonin) 3 mg HS PO 01/08/21 21:00 01/23/21 19:12 Trazodone HCl (Desyrel) 50 mg PRN QHS PRN PO INSOMNIA MRX1 01/08/21 17:30 01/21/21 00:31 Risperidone (RisperDAL) 1 mg QHS PO 01/08/21 21:00 01/08/21 19:47 DC Olanzapine (ZyPREXA ZYDIS) 2.5 mg PRN Q2HRS PRN PO PSYCHOSIS 01/08/21 19:45 01/22/21 15:30 Risperidone (RisperDAL) 0.5 mg HS PO 01/08/21 21:00 01/08/21 19:58 DC Risperidone (RisperDAL) 0.25 mg HS PO 01/08/21 20:00 01/08/21 20:01 DC Risperidone (RisperDAL) 0.25 mg HS PO 01/08/21 21:00 01/14/21 11:11 DC 01/13/21 20:11 Lorazepam (Ativan Intensol) 0.25 mg PRN Q6HRS PRN PO ANXIETY / AGITATION 01/09/21 17:15 01/09/21 17:46 DC Lorazepam (Ativan Intensol) 0.25 mg PRN TID PRN PO ANXIETY / AGITATION 01/09/21 17:45 01/19/21 17:50 Trazodone HCl (Desyrel) 50 mg 1445 ONCE PO 01/11/21 14:45 01/11/21 14:54 DC Mirtazapine (Remeron) 7.5 mg QHS PO 01/11/21 21:00 01/18/21 19:49 DC 01/17/21 19:38 Sertraline HCl (Zoloft) 75 mg DAILY PO 01/15/21 09:00 01/19/21 17:19 DC 01/19/21 08:14 Risperidone (RisperDAL) 0.5 mg QHS PO 01/14/21 21:00 01/23/21 19:18 Mirtazapine (Remeron Anum-Tab) 15 mg QHS PO 01/18/21 21:00 01/23/21 19:13 Sertraline HCl (Zoloft) 100 mg DAILY PO 01/20/21 09:00 01/24/21 08:28 Divalproex Sodium (Depakote Sprinkles) 125 mg DAILY PO 01/22/21 09:00 01/24/21 08:28 Divalproex Sodium (Depakote Sprinkles) 125 mg DAILYWSUP PO 01/21/21 17:00 01/23/21 17:36 Risperidone (RisperDAL) 0.5 mg DAILY PO 01/23/21 09:00 01/24/21 08:28 Current Medications Medications (Trade) Dose Ordered Sig/Marguerite Route PRN Reason Start Time Stop Time Status Last Admin Dose Admin Risperidone (RisperDAL) 0.5 mg DAILY PO 01/23/21 09:00 01/24/21 08:28 I have reviewed the current psychotropics carefully including drug interactions. Risk benefit ratio favors no change other than as noted in my dictated progress note. Diagnosis: Problems: (1) Dementia in Alzheimer's disease with depression (2) Dementia in Alzheimer's disease with delusions (3) Dementia of the Alzheimer's type with early onset with behavioral disturbance (4) Major neurocognitive disorder (5) Impulse control disorder, unspecified (6) Anxiety disorder, unspecified (7) Dementia, vascular, with depression (8) Dementia, vascular, with delusions OFE MONTENEGRO MD Jan 24, 2021 08:40
[2021-01-24 16:08] VITALS: BP 140/58
[2021-01-24] MEDS: ATORVASTATIN CALCIUM 10 MG TABLET. PO SCH (20:24)
[2021-01-24] MEDS: MELATONIN 3 MG TABLET PO SCH (20:24)
[2021-01-24] MEDS: MIRTAZAPINE ODT 15 MG TAB.RAPDIS. PO SCH (20:25)
--- NOTE | 2021-01-24 22:13 | PDOC ---
Exam Note: Devang Note: Please also refer to the separate dictated note~for this date of service dictated separately.~Patient seen individually. Discussed the patient with Nursing staff reviewed the chart.~Reviewed interim history and current functioning. Reviewed vital signs,~Labs/ Radiology~and current medications noted below. Continue current treatment with the changes noted in the dictated addendum note Assessment: Vital Signs/I&O: Vital Signs Date Time Temp Pulse Resp B/P (MAP) Pulse Ox O2 Delivery O2 Flow Rate FiO2 01/24/21 20:25 66 140/58 01/24/21 16:08 97.8 18 94 01/21/21 06:04 Room Air I & O 01/23/21 01/23/21 01/24/21 14:59 22:59 06:59 Intake Total 720 ml 480 ml Balance 720 ml 480 ml Current Medications: Meds: Current Medications Medications (Trade) Dose Ordered Sig/Marguerite Route PRN Reason Start Time Stop Time Status Last Admin Dose Admin Potassium Chloride (Klor-Con) 40 meq 1X ONCE PO 01/04/21 19:00 01/04/21 19:07 DC 01/04/21 19:16 Acetaminophen (Tylenol) 500 mg PRN Q12HR PRN PO PAIN 01/04/21 23:00 Cancel Atorvastatin Calcium (Lipitor) 10 mg QHS PO 01/05/21 21:00 01/24/21 20:24 Furosemide (Lasix) 40 mg DAILY PO 01/05/21 09:00 01/24/21 08:27 Metoprolol Tartrate (Lopressor) 50 mg BID PO 01/05/21 09:00 01/24/21 20:25 Potassium Chloride (Klor-Con) 20 meq DAILY PO 01/05/21 09:00 01/11/21 15:00 DC 01/11/21 08:57 Polyethylene Glycol (miraLAX) 17 gm DAILY PO 01/05/21 09:00 01/24/21 08:24 Lorazepam (Ativan) 1 mg PRN Q4HRS PRN PO ANXIETY / AGITATION 01/04/21 23:00 01/09/21 10:42 DC 01/07/21 23:07 Lorazepam (Ativan Intensol) 1 mg PRN Q6HRS PRN PO ANXIETY / AGITATION 01/04/21 23:00 01/09/21 17:03 DC Risperidone (RisperDAL) 0.25 mg DAILY PO 01/05/21 09:00 01/22/21 17:34 DC 01/22/21 08:35 Risperidone (RisperDAL) 0.5 mg QHS PO 01/05/21 21:00 01/08/21 17:27 DC 01/07/21 20:28 Melatonin (Melatonin) 6 mg HS PO 01/05/21 21:00 01/08/21 17:27 DC 01/07/21 20:28 Acetaminophen (Tylenol) 650 mg PRN Q6HRS PRN PO MILD PAIN / TEMP > 100.3'F 01/04/21 22:45 01/05/21 08:40 Multi-Ingredient Ointment (Analgesic [place]) 1 abby PRN QID PRN TP MUSCLE PAIN 01/04/21 22:45 Al Hydroxide/Mg Hydroxide (Mylanta Plus Xs) 15 ml PRN AFTMEALHC PRN PO DYSPEPSIA 01/04/21 22:45 Magnesium Hydroxide (Milk Of Magnesia) 2,400 mg PRN QHS PRN PO CONSTIPATION 01/04/21 22:45 Potassium Chloride (Klor-Con) 40 meq 1X ONCE PO 01/05/21 15:45 01/05/21 15:49 DC 01/05/21 17:29 Potassium Chloride (Klor-Con) 20 meq BID PO 01/05/21 21:00 01/24/21 20:24 Sertraline HCl (Zoloft) 25 mg DAILY PO 01/07/21 09:00 01/09/21 18:00 DC 01/09/21 08:24 Sertraline HCl (Zoloft) 50 mg DAILY PO 01/10/21 09:00 01/14/21 11:10 DC 01/14/21 08:11 Melatonin (Melatonin) 3 mg HS PO 01/08/21 21:00 01/24/21 20:24 Trazodone HCl (Desyrel) 50 mg PRN QHS PRN PO INSOMNIA MRX1 01/08/21 17:30 01/21/21 00:31 Risperidone (RisperDAL) 1 mg QHS PO 01/08/21 21:00 01/08/21 19:47 DC Olanzapine (ZyPREXA ZYDIS) 2.5 mg PRN Q2HRS PRN PO PSYCHOSIS 01/08/21 19:45 01/24/21 10:36 Risperidone (RisperDAL) 0.5 mg HS PO 01/08/21 21:00 01/08/21 19:58 DC Risperidone (RisperDAL) 0.25 mg HS PO 01/08/21 20:00 01/08/21 20:01 DC Risperidone (RisperDAL) 0.25 mg HS PO 01/08/21 21:00 01/14/21 11:11 DC 01/13/21 20:11 Lorazepam (Ativan Intensol) 0.25 mg PRN Q6HRS PRN PO ANXIETY / AGITATION 01/09/21 17:15 01/09/21 17:46 DC Lorazepam (Ativan Intensol) 0.25 mg PRN TID PRN PO ANXIETY / AGITATION 01/09/21 17:45 01/19/21 17:50 Trazodone HCl (Desyrel) 50 mg 1445 ONCE PO 01/11/21 14:45 01/11/21 14:54 DC Mirtazapine (Remeron) 7.5 mg QHS PO 01/11/21 21:00 01/18/21 19:49 DC 01/17/21 19:38 Sertraline HCl (Zoloft) 75 mg DAILY PO 01/15/21 09:00 01/19/21 17:19 DC 01/19/21 08:14 Risperidone (RisperDAL) 0.5 mg QHS PO 01/14/21 21:00 01/24/21 20:24 Mirtazapine (Remeron Anum-Tab) 15 mg QHS PO 01/18/21 21:00 01/24/21 20:25 Sertraline HCl (Zoloft) 100 mg DAILY PO 01/20/21 09:00 01/24/21 08:28 Divalproex Sodium (Depakote Sprinkles) 125 mg DAILY PO 01/22/21 09:00 01/24/21 08:28 Divalproex Sodium (Depakote Sprinkles) 125 mg DAILYWSUP PO 01/21/21 17:00 01/24/21 17:02 Risperidone (RisperDAL) 0.5 mg DAILY PO 01/23/21 09:00 01/24/21 08:28 I have reviewed the current psychotropics carefully including drug interactions. Risk benefit ratio favors no change other than as noted in my dictated progress note. Diagnosis: Problems: (1) Dementia in Alzheimer's disease with depression (2) Dementia in Alzheimer's disease with delusions (3) Dementia of the Alzheimer's type with early onset with behavioral disturbance (4) Major neurocognitive disorder (5) Impulse control disorder, unspecified (6) Anxiety disorder, unspecified (7) Dementia, vascular, with depression (8) Dementia, vascular, with delusions OFE MONTENEGRO MD Jan 24, 2021 22:13
[2021-01-25] MEDS: METOPROLOL TART IMMED RELEASE 50 MG TABLET PO SCH ×2 (05:41→20:20)
[2021-01-25 06:09] VITALS: BP 173/77
--- NOTE | 2021-01-25 06:55 | PDOC ---
Exam Note: Devang Note: This note is a late entry for 01/24/2021 covers elements not covered in my initial note. Subjective: The patient was seen individually in the evening of 01/24/2021 with Jaimee MARIANO, discussed and reviewed the chart. The patient slept 6-1/2 hours previous night. She has been asking the nurses to take her to her parents, believes are parents are being held hostage by us. She has been slamming the walker on the ground as a consequence of this and was much better in the evening as I met with her. Review of Systems: Ambulation impaired. No CV, , pulmonary, eye system symptoms on review. Mental Status Exam: The patient is oriented to herself. Insight and judgment, recent and remote memory, attention and concentration is poor consistent with her diagnoses. Laboratory Data: Reviewed. Impression: Major neurocognitive disorder Alzheimer vascular with delusion, depression, and behavioral disturbance. Anxiety disorder unspecified. Impulse control disorder unspecified. Plan: Continue psychotropics as noted above. Assessment: Vital Signs/I&O: Vital Signs Date Time Temp Pulse Resp B/P (MAP) Pulse Ox O2 Delivery O2 Flow Rate FiO2 01/25/21 06:09 97.6 62 20 173/77 (109) 95 01/21/21 06:04 Room Air I & O 01/24/21 01/24/21 01/25/21 15:00 23:00 07:00 Intake Total 360 ml 600 ml Balance 360 ml 600 ml Current Medications: Meds: Current Medications Medications (Trade) Dose Ordered Sig/Marguerite Route PRN Reason Start Time Stop Time Status Last Admin Dose Admin Potassium Chloride (Klor-Con) 40 meq 1X ONCE PO 01/04/21 19:00 01/04/21 19:07 DC 01/04/21 19:16 Acetaminophen (Tylenol) 500 mg PRN Q12HR PRN PO PAIN 01/04/21 23:00 Cancel Atorvastatin Calcium (Lipitor) 10 mg QHS PO 01/05/21 21:00 01/24/21 20:24 Furosemide (Lasix) 40 mg DAILY PO 01/05/21 09:00 01/24/21 08:27 Metoprolol Tartrate (Lopressor) 50 mg BID PO 01/05/21 09:00 01/25/21 05:41 Potassium Chloride (Klor-Con) 20 meq DAILY PO 01/05/21 09:00 01/11/21 15:00 DC 01/11/21 08:57 Polyethylene Glycol (miraLAX) 17 gm DAILY PO 01/05/21 09:00 01/24/21 08:24 Lorazepam (Ativan) 1 mg PRN Q4HRS PRN PO ANXIETY / AGITATION 01/04/21 23:00 01/09/21 10:42 DC 01/07/21 23:07 Lorazepam (Ativan Intensol) 1 mg PRN Q6HRS PRN PO ANXIETY / AGITATION 01/04/21 23:00 01/09/21 17:03 DC Risperidone (RisperDAL) 0.25 mg DAILY PO 01/05/21 09:00 01/22/21 17:34 DC 01/22/21 08:35 Risperidone (RisperDAL) 0.5 mg QHS PO 01/05/21 21:00 01/08/21 17:27 DC 01/07/21 20:28 Melatonin (Melatonin) 6 mg HS PO 01/05/21 21:00 01/08/21 17:27 DC 01/07/21 20:28 Acetaminophen (Tylenol) 650 mg PRN Q6HRS PRN PO MILD PAIN / TEMP > 100.3'F 01/04/21 22:45 01/05/21 08:40 Multi-Ingredient Ointment (Analgesic [place]) 1 abby PRN QID PRN TP MUSCLE PAIN 01/04/21 22:45 Al Hydroxide/Mg Hydroxide (Mylanta Plus Xs) 15 ml PRN AFTMEALHC PRN PO DYSPEPSIA 01/04/21 22:45 Magnesium Hydroxide (Milk Of Magnesia) 2,400 mg PRN QHS PRN PO CONSTIPATION 01/04/21 22:45 Potassium Chloride (Klor-Con) 40 meq 1X ONCE PO 01/05/21 15:45 01/05/21 15:49 DC 01/05/21 17:29 Potassium Chloride (Klor-Con) 20 meq BID PO 01/05/21 21:00 01/24/21 20:24 Sertraline HCl (Zoloft) 25 mg DAILY PO 01/07/21 09:00 01/09/21 18:00 DC 01/09/21 08:24 Sertraline HCl (Zoloft) 50 mg DAILY PO 01/10/21 09:00 01/14/21 11:10 DC 01/14/21 08:11 Melatonin (Melatonin) 3 mg HS PO 01/08/21 21:00 01/24/21 20:24 Trazodone HCl (Desyrel) 50 mg PRN QHS PRN PO INSOMNIA MRX1 01/08/21 17:30 01/21/21 00:31 Risperidone (RisperDAL) 1 mg QHS PO 01/08/21 21:00 01/08/21 19:47 DC Olanzapine (ZyPREXA ZYDIS) 2.5 mg PRN Q2HRS PRN PO PSYCHOSIS 01/08/21 19:45 01/24/21 10:36 Risperidone (RisperDAL) 0.5 mg HS PO 01/08/21 21:00 01/08/21 19:58 DC Risperidone (RisperDAL) 0.25 mg HS PO 01/08/21 20:00 01/08/21 20:01 DC Risperidone (RisperDAL) 0.25 mg HS PO 01/08/21 21:00 01/14/21 11:11 DC 01/13/21 20:11 Lorazepam (Ativan Intensol) 0.25 mg PRN Q6HRS PRN PO ANXIETY / AGITATION 01/09/21 17:15 01/09/21 17:46 DC Lorazepam (Ativan Intensol) 0.25 mg PRN TID PRN PO ANXIETY / AGITATION 01/09/21 17:45 01/19/21 17:50 Trazodone HCl (Desyrel) 50 mg 1445 ONCE PO 01/11/21 14:45 01/11/21 14:54 DC Mirtazapine (Remeron) 7.5 mg QHS PO 01/11/21 21:00 01/18/21 19:49 DC 01/17/21 19:38 Sertraline HCl (Zoloft) 75 mg DAILY PO 01/15/21 09:00 01/19/21 17:19 DC 01/19/21 08:14 Risperidone (RisperDAL) 0.5 mg QHS PO 01/14/21 21:00 01/24/21 20:24 Mirtazapine (Remeron Anum-Tab) 15 mg QHS PO 01/18/21 21:00 01/24/21 20:25 Sertraline HCl (Zoloft) 100 mg DAILY PO 01/20/21 09:00 01/24/21 08:28 Divalproex Sodium (Depakote Sprinkles) 125 mg DAILY PO 01/22/21 09:00 01/24/21 08:28 Divalproex Sodium (Depakote Sprinkles) 125 mg DAILYWSUP PO 01/21/21 17:00 01/24/21 17:02 Risperidone (RisperDAL) 0.5 mg DAILY PO 01/23/21 09:00 01/24/21 08:28 I have reviewed the current psychotropics carefully including drug interactions. Risk benefit ratio favors no change other than as noted in my dictated progress note. Diagnosis: Problems: (1) Dementia in Alzheimer's disease with depression (2) Dementia in Alzheimer's disease with delusions (3) Dementia of the Alzheimer's type with early onset with behavioral disturbance (4) Major neurocognitive disorder (5) Impulse control disorder, unspecified (6) Anxiety disorder, unspecified (7) Dementia, vascular, with depression (8) Dementia, vascular, with delusions OFE MONTENEGRO MD Jan 25, 2021 06:55
[2021-01-25] MEDS: POLYETHYLENE GLYCOL 3350 17 GM PACKET. PO SCH (08:22)
[2021-01-25] MEDS: DIVALPROEX 125 MG CAP.SPRINK PO SCH ×2 (08:22→17:19)
[2021-01-25] MEDS: risperiDONE 0.5 MG TABLET. PO SCH ×2 (08:23→20:19)
[2021-01-25] MEDS: POTASSIUM CHLORIDE 20 MEQ TABLET.ER. PO SCH ×2 (08:23→20:20)
[2021-01-25] MEDS: SERTRALINE 100 MG TABLET. PO SCH (08:24)
[2021-01-25] MEDS: FUROSEMIDE 40 MG TABLET PO SCH (08:24)
[2021-01-25 15:48] VITALS: BP 129/84
[2021-01-25] MEDS: MELATONIN 3 MG TABLET PO SCH (20:20)
[2021-01-25] MEDS: MIRTAZAPINE ODT 15 MG TAB.RAPDIS. PO SCH (20:20)
[2021-01-25] MEDS: ATORVASTATIN CALCIUM 10 MG TABLET. PO SCH (20:20)
--- NOTE | 2021-01-25 22:17 | PDOC ---
Exam Note: Devang Note: Please also refer to the separate dictated note~for this date of service dictated separately.~Patient seen individually. Discussed the patient with Nursing staff reviewed the chart.~Reviewed interim history and current functioning. Reviewed vital signs,~Labs/ Radiology~and current medications noted below. Continue current treatment with the changes noted in the dictated addendum note Assessment: Vital Signs/I&O: Vital Signs Date Time Temp Pulse Resp B/P (MAP) Pulse Ox O2 Delivery O2 Flow Rate FiO2 01/25/21 20:20 62 129/84 01/25/21 15:48 98.1 20 93 01/21/21 06:04 Room Air I & O 01/24/21 01/24/21 01/25/21 15:00 23:00 07:00 Intake Total 360 ml 600 ml Balance 360 ml 600 ml Current Medications: Meds: Current Medications Medications (Trade) Dose Ordered Sig/Marguerite Route PRN Reason Start Time Stop Time Status Last Admin Dose Admin Potassium Chloride (Klor-Con) 40 meq 1X ONCE PO 01/04/21 19:00 01/04/21 19:07 DC 01/04/21 19:16 Acetaminophen (Tylenol) 500 mg PRN Q12HR PRN PO PAIN 01/04/21 23:00 Cancel Atorvastatin Calcium (Lipitor) 10 mg QHS PO 01/05/21 21:00 01/25/21 20:20 Furosemide (Lasix) 40 mg DAILY PO 01/05/21 09:00 01/25/21 08:24 Metoprolol Tartrate (Lopressor) 50 mg BID PO 01/05/21 09:00 01/25/21 20:20 Potassium Chloride (Klor-Con) 20 meq DAILY PO 01/05/21 09:00 01/11/21 15:00 DC 01/11/21 08:57 Polyethylene Glycol (miraLAX) 17 gm DAILY PO 01/05/21 09:00 01/25/21 08:22 Lorazepam (Ativan) 1 mg PRN Q4HRS PRN PO ANXIETY / AGITATION 01/04/21 23:00 01/09/21 10:42 DC 01/07/21 23:07 Lorazepam (Ativan Intensol) 1 mg PRN Q6HRS PRN PO ANXIETY / AGITATION 01/04/21 23:00 01/09/21 17:03 DC Risperidone (RisperDAL) 0.25 mg DAILY PO 01/05/21 09:00 01/22/21 17:34 DC 01/22/21 08:35 Risperidone (RisperDAL) 0.5 mg QHS PO 01/05/21 21:00 01/08/21 17:27 DC 01/07/21 20:28 Melatonin (Melatonin) 6 mg HS PO 01/05/21 21:00 01/08/21 17:27 DC 01/07/21 20:28 Acetaminophen (Tylenol) 650 mg PRN Q6HRS PRN PO MILD PAIN / TEMP > 100.3'F 01/04/21 22:45 01/05/21 08:40 Multi-Ingredient Ointment (Analgesic [place]) 1 abby PRN QID PRN TP MUSCLE PAIN 01/04/21 22:45 Al Hydroxide/Mg Hydroxide (Mylanta Plus Xs) 15 ml PRN AFTMEALHC PRN PO DYSPEPSIA 01/04/21 22:45 Magnesium Hydroxide (Milk Of Magnesia) 2,400 mg PRN QHS PRN PO CONSTIPATION 01/04/21 22:45 Potassium Chloride (Klor-Con) 40 meq 1X ONCE PO 01/05/21 15:45 01/05/21 15:49 DC 01/05/21 17:29 Potassium Chloride (Klor-Con) 20 meq BID PO 01/05/21 21:00 01/25/21 20:20 Sertraline HCl (Zoloft) 25 mg DAILY PO 01/07/21 09:00 01/09/21 18:00 DC 01/09/21 08:24 Sertraline HCl (Zoloft) 50 mg DAILY PO 01/10/21 09:00 01/14/21 11:10 DC 01/14/21 08:11 Melatonin (Melatonin) 3 mg HS PO 01/08/21 21:00 01/25/21 20:20 Trazodone HCl (Desyrel) 50 mg PRN QHS PRN PO INSOMNIA MRX1 01/08/21 17:30 01/21/21 00:31 Risperidone (RisperDAL) 1 mg QHS PO 01/08/21 21:00 01/08/21 19:47 DC Olanzapine (ZyPREXA ZYDIS) 2.5 mg PRN Q2HRS PRN PO PSYCHOSIS 01/08/21 19:45 01/25/21 14:14 Risperidone (RisperDAL) 0.5 mg HS PO 01/08/21 21:00 01/08/21 19:58 DC Risperidone (RisperDAL) 0.25 mg HS PO 01/08/21 20:00 01/08/21 20:01 DC Risperidone (RisperDAL) 0.25 mg HS PO 01/08/21 21:00 01/14/21 11:11 DC 01/13/21 20:11 Lorazepam (Ativan Intensol) 0.25 mg PRN Q6HRS PRN PO ANXIETY / AGITATION 01/09/21 17:15 01/09/21 17:46 DC Lorazepam (Ativan Intensol) 0.25 mg PRN TID PRN PO ANXIETY / AGITATION 01/09/21 17:45 01/19/21 17:50 Trazodone HCl (Desyrel) 50 mg 1445 ONCE PO 01/11/21 14:45 01/11/21 14:54 DC Mirtazapine (Remeron) 7.5 mg QHS PO 01/11/21 21:00 01/18/21 19:49 DC 01/17/21 19:38 Sertraline HCl (Zoloft) 75 mg DAILY PO 01/15/21 09:00 01/19/21 17:19 DC 01/19/21 08:14 Risperidone (RisperDAL) 0.5 mg QHS PO 01/14/21 21:00 01/25/21 20:19 Mirtazapine (Remeron Anum-Tab) 15 mg QHS PO 01/18/21 21:00 01/25/21 20:20 Sertraline HCl (Zoloft) 100 mg DAILY PO 01/20/21 09:00 01/25/21 08:24 Divalproex Sodium (Depakote Sprinkles) 125 mg DAILY PO 01/22/21 09:00 01/25/21 08:22 Divalproex Sodium (Depakote Sprinkles) 125 mg DAILYWSUP PO 01/21/21 17:00 01/25/21 17:19 Risperidone (RisperDAL) 0.5 mg DAILY PO 01/23/21 09:00 01/25/21 08:23 I have reviewed the current psychotropics carefully including drug interactions. Risk benefit ratio favors no change other than as noted in my dictated progress note. 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
--- NOTE | 2021-01-26 07:20 | PDOC ---
Exam Note: Devang Note: This note is a late entry for 01/25/2021 covers elements not covered in my initial note. Subjective: The patient was seen individually in the evening of 01/25/2021 with Jaimee MARIANO, discussed and reviewed the chart. The patient slept 6-1/4 hours previous night. Previous night she was looking for her parents, felt they were missing. Refused medications, took them later, somewhat anxious. Received Zyprexa in the morning. She is delusional, states she was going to be in a play, restless. She received Zyprexa x2. Review of Systems: Ambulation impaired. No CV, , pulmonary, eye system symptoms on review. Mental Status Exam: The patient is oriented to herself. Insight and judgment, recent and remote memory, attention and concentration is poor consistent with her diagnoses. Reliability poor. Laboratory Data: Reviewed. Impression: Major neurocognitive disorder Alzheimer vascular with delusion, depression, and behavioral disturbance. Anxiety disorder unspecified. Impulse control disorder unspecified. Plan: Continue psychotropics as noted above. Assessment: Vital Signs/I&O: Vital Signs Date Time Temp Pulse Resp B/P (MAP) Pulse Ox O2 Delivery O2 Flow Rate FiO2 01/25/21 20:20 62 129/84 01/25/21 15:48 98.1 20 93 01/21/21 06:04 Room Air I & O 01/25/21 01/25/21 01/26/21 15:00 23:00 07:00 Intake Total 360 ml 480 ml Balance 360 ml 480 ml Current Medications: Meds: Current Medications Medications (Trade) Dose Ordered Sig/Marguerite Route PRN Reason Start Time Stop Time Status Last Admin Dose Admin Potassium Chloride (Klor-Con) 40 meq 1X ONCE PO 01/04/21 19:00 01/04/21 19:07 DC 01/04/21 19:16 Acetaminophen (Tylenol) 500 mg PRN Q12HR PRN PO PAIN 01/04/21 23:00 Cancel Atorvastatin Calcium (Lipitor) 10 mg QHS PO 01/05/21 21:00 01/25/21 20:20 Furosemide (Lasix) 40 mg DAILY PO 01/05/21 09:00 01/25/21 08:24 Metoprolol Tartrate (Lopressor) 50 mg BID PO 01/05/21 09:00 01/25/21 20:20 Potassium Chloride (Klor-Con) 20 meq DAILY PO 01/05/21 09:00 01/11/21 15:00 DC 01/11/21 08:57 Polyethylene Glycol (miraLAX) 17 gm DAILY PO 01/05/21 09:00 01/25/21 08:22 Lorazepam (Ativan) 1 mg PRN Q4HRS PRN PO ANXIETY / AGITATION 01/04/21 23:00 01/09/21 10:42 DC 01/07/21 23:07 Lorazepam (Ativan Intensol) 1 mg PRN Q6HRS PRN PO ANXIETY / AGITATION 01/04/21 23:00 01/09/21 17:03 DC Risperidone (RisperDAL) 0.25 mg DAILY PO 01/05/21 09:00 01/22/21 17:34 DC 01/22/21 08:35 Risperidone (RisperDAL) 0.5 mg QHS PO 01/05/21 21:00 01/08/21 17:27 DC 01/07/21 20:28 Melatonin (Melatonin) 6 mg HS PO 01/05/21 21:00 01/08/21 17:27 DC 01/07/21 20:28 Acetaminophen (Tylenol) 650 mg PRN Q6HRS PRN PO MILD PAIN / TEMP > 100.3'F 01/04/21 22:45 01/05/21 08:40 Multi-Ingredient Ointment (Analgesic [place]) 1 abby PRN QID PRN TP MUSCLE PAIN 01/04/21 22:45 Al Hydroxide/Mg Hydroxide (Mylanta Plus Xs) 15 ml PRN AFTMEALHC PRN PO DYSPEPSIA 01/04/21 22:45 Magnesium Hydroxide (Milk Of Magnesia) 2,400 mg PRN QHS PRN PO CONSTIPATION 01/04/21 22:45 Potassium Chloride (Klor-Con) 40 meq 1X ONCE PO 01/05/21 15:45 01/05/21 15:49 DC 01/05/21 17:29 Potassium Chloride (Klor-Con) 20 meq BID PO 01/05/21 21:00 01/25/21 20:20 Sertraline HCl (Zoloft) 25 mg DAILY PO 01/07/21 09:00 01/09/21 18:00 DC 01/09/21 08:24 Sertraline HCl (Zoloft) 50 mg DAILY PO 01/10/21 09:00 01/14/21 11:10 DC 01/14/21 08:11 Melatonin (Melatonin) 3 mg HS PO 01/08/21 21:00 01/25/21 20:20 Trazodone HCl (Desyrel) 50 mg PRN QHS PRN PO INSOMNIA MRX1 01/08/21 17:30 01/21/21 00:31 Risperidone (RisperDAL) 1 mg QHS PO 01/08/21 21:00 01/08/21 19:47 DC Olanzapine (ZyPREXA ZYDIS) 2.5 mg PRN Q2HRS PRN PO PSYCHOSIS 01/08/21 19:45 01/25/21 14:14 Risperidone (RisperDAL) 0.5 mg HS PO 01/08/21 21:00 01/08/21 19:58 DC Risperidone (RisperDAL) 0.25 mg HS PO 01/08/21 20:00 01/08/21 20:01 DC Risperidone (RisperDAL) 0.25 mg HS PO 01/08/21 21:00 01/14/21 11:11 DC 01/13/21 20:11 Lorazepam (Ativan Intensol) 0.25 mg PRN Q6HRS PRN PO ANXIETY / AGITATION 01/09/21 17:15 01/09/21 17:46 DC Lorazepam (Ativan Intensol) 0.25 mg PRN TID PRN PO ANXIETY / AGITATION 01/09/21 17:45 01/19/21 17:50 Trazodone HCl (Desyrel) 50 mg 1445 ONCE PO 01/11/21 14:45 01/11/21 14:54 DC Mirtazapine (Remeron) 7.5 mg QHS PO 01/11/21 21:00 01/18/21 19:49 DC 01/17/21 19:38 Sertraline HCl (Zoloft) 75 mg DAILY PO 01/15/21 09:00 01/19/21 17:19 DC 01/19/21 08:14 Risperidone (RisperDAL) 0.5 mg QHS PO 01/14/21 21:00 01/25/21 20:19 Mirtazapine (Remeron Anum-Tab) 15 mg QHS PO 01/18/21 21:00 01/25/21 20:20 Sertraline HCl (Zoloft) 100 mg DAILY PO 01/20/21 09:00 01/25/21 08:24 Divalproex Sodium (Depakote Sprinkles) 125 mg DAILY PO 01/22/21 09:00 01/25/21 08:22 Divalproex Sodium (Depakote Sprinkles) 125 mg DAILYWSUP PO 01/21/21 17:00 01/25/21 17:19 Risperidone (RisperDAL) 0.5 mg DAILY PO 01/23/21 09:00 01/25/21 08:23 I have reviewed the current psychotropics carefully including drug interactions. Risk benefit ratio favors no change other than as noted in my dictated progress note. 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
[2021-01-26] MEDS: DIVALPROEX 125 MG CAP.SPRINK PO SCH ×2 (08:43→17:18)
[2021-01-26] MEDS: METOPROLOL TART IMMED RELEASE 50 MG TABLET PO SCH ×2 (08:43→20:25)
[2021-01-26] MEDS: FUROSEMIDE 40 MG TABLET PO SCH (08:43)
[2021-01-26] MEDS: risperiDONE 0.5 MG TABLET. PO SCH ×2 (08:44→20:26)
[2021-01-26] MEDS: POLYETHYLENE GLYCOL 3350 17 GM PACKET. PO SCH (08:44)
[2021-01-26] MEDS: POTASSIUM CHLORIDE 20 MEQ TABLET.ER. PO SCH ×2 (08:44→20:26)
[2021-01-26] MEDS: SERTRALINE 100 MG TABLET. PO SCH (08:44)
[2021-01-26 09:26] VITALS: BP 122/65
[2021-01-26 16:10] VITALS: BP 133/71
[2021-01-26] MEDS: MELATONIN 3 MG TABLET PO SCH (20:25)
[2021-01-26] MEDS: ATORVASTATIN CALCIUM 10 MG TABLET. PO SCH (20:25)
[2021-01-26] MEDS: MIRTAZAPINE ODT 15 MG TAB.RAPDIS. PO SCH (20:26)
--- NOTE | 2021-01-26 22:09 | PDOC ---
Exam Note: Devang Note: Please also refer to the separate dictated note~for this date of service dictated separately.~Patient seen individually. Discussed the patient with Nursing staff reviewed the chart.~Reviewed interim history and current functioning. Reviewed vital signs,~Labs/ Radiology~and current medications noted below. Continue current treatment with the changes noted in the dictated addendum note Assessment: Vital Signs/I&O: Vital Signs Date Time Temp Pulse Resp B/P (MAP) Pulse Ox O2 Delivery O2 Flow Rate FiO2 01/26/21 20:25 68 133/71 01/26/21 16:10 98.0 16 97 01/21/21 06:04 Room Air I & O 01/25/21 01/25/21 01/26/21 15:00 23:00 07:00 Intake Total 360 ml 480 ml Balance 360 ml 480 ml Current Medications: Meds: Current Medications Medications (Trade) Dose Ordered Sig/Marguerite Route PRN Reason Start Time Stop Time Status Last Admin Dose Admin Potassium Chloride (Klor-Con) 40 meq 1X ONCE PO 01/04/21 19:00 01/04/21 19:07 DC 01/04/21 19:16 Acetaminophen (Tylenol) 500 mg PRN Q12HR PRN PO PAIN 01/04/21 23:00 Cancel Atorvastatin Calcium (Lipitor) 10 mg QHS PO 01/05/21 21:00 01/26/21 20:25 Furosemide (Lasix) 40 mg DAILY PO 01/05/21 09:00 01/26/21 08:43 Metoprolol Tartrate (Lopressor) 50 mg BID PO 01/05/21 09:00 01/26/21 20:25 Potassium Chloride (Klor-Con) 20 meq DAILY PO 01/05/21 09:00 01/11/21 15:00 DC 01/11/21 08:57 Polyethylene Glycol (miraLAX) 17 gm DAILY PO 01/05/21 09:00 01/25/21 08:22 Lorazepam (Ativan) 1 mg PRN Q4HRS PRN PO ANXIETY / AGITATION 01/04/21 23:00 01/09/21 10:42 DC 01/07/21 23:07 Lorazepam (Ativan Intensol) 1 mg PRN Q6HRS PRN PO ANXIETY / AGITATION 01/04/21 23:00 01/09/21 17:03 DC Risperidone (RisperDAL) 0.25 mg DAILY PO 01/05/21 09:00 01/22/21 17:34 DC 01/22/21 08:35 Risperidone (RisperDAL) 0.5 mg QHS PO 01/05/21 21:00 01/08/21 17:27 DC 01/07/21 20:28 Melatonin (Melatonin) 6 mg HS PO 01/05/21 21:00 01/08/21 17:27 DC 01/07/21 20:28 Acetaminophen (Tylenol) 650 mg PRN Q6HRS PRN PO MILD PAIN / TEMP > 100.3'F 01/04/21 22:45 01/05/21 08:40 Multi-Ingredient Ointment (Analgesic [place]) 1 abby PRN QID PRN TP MUSCLE PAIN 01/04/21 22:45 Al Hydroxide/Mg Hydroxide (Mylanta Plus Xs) 15 ml PRN AFTMEALHC PRN PO DYSPEPSIA 01/04/21 22:45 Magnesium Hydroxide (Milk Of Magnesia) 2,400 mg PRN QHS PRN PO CONSTIPATION 01/04/21 22:45 Potassium Chloride (Klor-Con) 40 meq 1X ONCE PO 01/05/21 15:45 01/05/21 15:49 DC 01/05/21 17:29 Potassium Chloride (Klor-Con) 20 meq BID PO 01/05/21 21:00 01/26/21 20:26 Sertraline HCl (Zoloft) 25 mg DAILY PO 01/07/21 09:00 01/09/21 18:00 DC 01/09/21 08:24 Sertraline HCl (Zoloft) 50 mg DAILY PO 01/10/21 09:00 01/14/21 11:10 DC 01/14/21 08:11 Melatonin (Melatonin) 3 mg HS PO 01/08/21 21:00 01/26/21 20:25 Trazodone HCl (Desyrel) 50 mg PRN QHS PRN PO INSOMNIA MRX1 01/08/21 17:30 01/21/21 00:31 Risperidone (RisperDAL) 1 mg QHS PO 01/08/21 21:00 01/08/21 19:47 DC Olanzapine (ZyPREXA ZYDIS) 2.5 mg PRN Q2HRS PRN PO PSYCHOSIS 01/08/21 19:45 01/26/21 20:25 Risperidone (RisperDAL) 0.5 mg HS PO 01/08/21 21:00 01/08/21 19:58 DC Risperidone (RisperDAL) 0.25 mg HS PO 01/08/21 20:00 01/08/21 20:01 DC Risperidone (RisperDAL) 0.25 mg HS PO 01/08/21 21:00 01/14/21 11:11 DC 01/13/21 20:11 Lorazepam (Ativan Intensol) 0.25 mg PRN Q6HRS PRN PO ANXIETY / AGITATION 01/09/21 17:15 01/09/21 17:46 DC Lorazepam (Ativan Intensol) 0.25 mg PRN TID PRN PO ANXIETY / AGITATION 01/09/21 17:45 01/19/21 17:50 Trazodone HCl (Desyrel) 50 mg 1445 ONCE PO 01/11/21 14:45 01/11/21 14:54 DC Mirtazapine (Remeron) 7.5 mg QHS PO 01/11/21 21:00 01/18/21 19:49 DC 01/17/21 19:38 Sertraline HCl (Zoloft) 75 mg DAILY PO 01/15/21 09:00 01/19/21 17:19 DC 01/19/21 08:14 Risperidone (RisperDAL) 0.5 mg QHS PO 01/14/21 21:00 01/26/21 20:26 Mirtazapine (Remeron Anum-Tab) 15 mg QHS PO 01/18/21 21:00 01/26/21 20:26 Sertraline HCl (Zoloft) 100 mg DAILY PO 01/20/21 09:00 01/26/21 08:44 Divalproex Sodium (Depakote Sprinkles) 125 mg DAILY PO 01/22/21 09:00 01/26/21 08:43 Divalproex Sodium (Depakote Sprinkles) 125 mg DAILYWSUP PO 01/21/21 17:00 01/26/21 17:18 Risperidone (RisperDAL) 0.5 mg DAILY PO 01/23/21 09:00 01/26/21 08:44 I have reviewed the current psychotropics carefully including drug interactions. Risk benefit ratio favors no change other than as noted in my dictated progress note. 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
[2021-01-27 06:31] VITALS: BP 150/74
--- NOTE | 2021-01-27 07:07 | PDOC ---
Exam Note: Devang Note: This note is a late entry for 01/26/2021 covers elements not covered in my initial note. Subjective: The patient was seen individually in the evening of 01/26/2021 with Jaimee MARIANO, discussed and reviewed the chart. The patient slept 5-3/4 hours previous night. She had decent day. Late in the evening about 10 mins before my rounds staff said she was looking for her parents, got agitated, last evening was able to tell the staff that she was born in 1921 and then corrected it to 2021. She has complained of some leg swelling and told the staff she needs her diuretic. Review of Systems: Ambulation impaired. No CV, , pulmonary, eye system symptoms on review. Mental Status Exam: The patient is oriented to herself. Insight and judgment, recent and remote memory, attention and concentration is poor consistent with her diagnoses. Reliability poor. Laboratory Data: Reviewed. Impression: Major neurocognitive disorder Alzheimer vascular with delusion, depression, and behavioral disturbance. Anxiety disorder unspecified. Impulse control disorder unspecified. Plan: Continue psychotropics as noted above. Assessment: Vital Signs/I&O: Vital Signs Date Time Temp Pulse Resp B/P (MAP) Pulse Ox O2 Delivery O2 Flow Rate FiO2 01/27/21 06:31 98.5 66 18 150/74 (99) 93 I & O 01/26/21 01/26/21 01/27/21 15:00 23:00 07:00 Intake Total 720 ml 480 ml Balance 720 ml 480 ml Current Medications: Meds: Current Medications Medications (Trade) Dose Ordered Sig/Marguerite Route PRN Reason Start Time Stop Time Status Last Admin Dose Admin Potassium Chloride (Klor-Con) 40 meq 1X ONCE PO 01/04/21 19:00 01/04/21 19:07 DC 01/04/21 19:16 Acetaminophen (Tylenol) 500 mg PRN Q12HR PRN PO PAIN 01/04/21 23:00 Cancel Atorvastatin Calcium (Lipitor) 10 mg QHS PO 01/05/21 21:00 01/26/21 20:25 Furosemide (Lasix) 40 mg DAILY PO 01/05/21 09:00 01/26/21 08:43 Metoprolol Tartrate (Lopressor) 50 mg BID PO 01/05/21 09:00 01/26/21 20:25 Potassium Chloride (Klor-Con) 20 meq DAILY PO 01/05/21 09:00 01/11/21 15:00 DC 01/11/21 08:57 Polyethylene Glycol (miraLAX) 17 gm DAILY PO 01/05/21 09:00 01/25/21 08:22 Lorazepam (Ativan) 1 mg PRN Q4HRS PRN PO ANXIETY / AGITATION 01/04/21 23:00 01/09/21 10:42 DC 01/07/21 23:07 Lorazepam (Ativan Intensol) 1 mg PRN Q6HRS PRN PO ANXIETY / AGITATION 01/04/21 23:00 01/09/21 17:03 DC Risperidone (RisperDAL) 0.25 mg DAILY PO 01/05/21 09:00 01/22/21 17:34 DC 01/22/21 08:35 Risperidone (RisperDAL) 0.5 mg QHS PO 01/05/21 21:00 01/08/21 17:27 DC 01/07/21 20:28 Melatonin (Melatonin) 6 mg HS PO 01/05/21 21:00 01/08/21 17:27 DC 01/07/21 20:28 Acetaminophen (Tylenol) 650 mg PRN Q6HRS PRN PO MILD PAIN / TEMP > 100.3'F 01/04/21 22:45 01/05/21 08:40 Multi-Ingredient Ointment (Analgesic [place]) 1 abby PRN QID PRN TP MUSCLE PAIN 01/04/21 22:45 Al Hydroxide/Mg Hydroxide (Mylanta Plus Xs) 15 ml PRN AFTMEALHC PRN PO DYSPEPSIA 01/04/21 22:45 Magnesium Hydroxide (Milk Of Magnesia) 2,400 mg PRN QHS PRN PO CONSTIPATION 01/04/21 22:45 Potassium Chloride (Klor-Con) 40 meq 1X ONCE PO 01/05/21 15:45 01/05/21 15:49 DC 01/05/21 17:29 Potassium Chloride (Klor-Con) 20 meq BID PO 01/05/21 21:00 01/26/21 20:26 Sertraline HCl (Zoloft) 25 mg DAILY PO 01/07/21 09:00 01/09/21 18:00 DC 01/09/21 08:24 Sertraline HCl (Zoloft) 50 mg DAILY PO 01/10/21 09:00 01/14/21 11:10 DC 01/14/21 08:11 Melatonin (Melatonin) 3 mg HS PO 01/08/21 21:00 01/26/21 20:25 Trazodone HCl (Desyrel) 50 mg PRN QHS PRN PO INSOMNIA MRX1 01/08/21 17:30 01/21/21 00:31 Risperidone (RisperDAL) 1 mg QHS PO 01/08/21 21:00 01/08/21 19:47 DC Olanzapine (ZyPREXA ZYDIS) 2.5 mg PRN Q2HRS PRN PO PSYCHOSIS 01/08/21 19:45 01/26/21 20:25 Risperidone (RisperDAL) 0.5 mg HS PO 01/08/21 21:00 01/08/21 19:58 DC Risperidone (RisperDAL) 0.25 mg HS PO 01/08/21 20:00 01/08/21 20:01 DC Risperidone (RisperDAL) 0.25 mg HS PO 01/08/21 21:00 01/14/21 11:11 DC 01/13/21 20:11 Lorazepam (Ativan Intensol) 0.25 mg PRN Q6HRS PRN PO ANXIETY / AGITATION 01/09/21 17:15 01/09/21 17:46 DC Lorazepam (Ativan Intensol) 0.25 mg PRN TID PRN PO ANXIETY / AGITATION 01/09/21 17:45 01/19/21 17:50 Trazodone HCl (Desyrel) 50 mg 1445 ONCE PO 01/11/21 14:45 01/11/21 14:54 DC Mirtazapine (Remeron) 7.5 mg QHS PO 01/11/21 21:00 01/18/21 19:49 DC 01/17/21 19:38 Sertraline HCl (Zoloft) 75 mg DAILY PO 01/15/21 09:00 01/19/21 17:19 DC 01/19/21 08:14 Risperidone (RisperDAL) 0.5 mg QHS PO 01/14/21 21:00 01/26/21 20:26 Mirtazapine (Remeron Anum-Tab) 15 mg QHS PO 01/18/21 21:00 01/26/21 20:26 Sertraline HCl (Zoloft) 100 mg DAILY PO 01/20/21 09:00 01/26/21 08:44 Divalproex Sodium (Depakote Sprinkles) 125 mg DAILY PO 01/22/21 09:00 01/26/21 08:43 Divalproex Sodium (Depakote Sprinkles) 125 mg DAILYWSUP PO 01/21/21 17:00 01/26/21 17:18 Risperidone (RisperDAL) 0.5 mg DAILY PO 01/23/21 09:00 01/26/21 08:44 I have reviewed the current psychotropics carefully including drug interactions. Risk benefit ratio favors no change other than as noted in my dictated progress note. 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
[2021-01-27] MEDS: POTASSIUM CHLORIDE 20 MEQ TABLET.ER. PO SCH ×2 (08:25→20:49)
[2021-01-27] MEDS: FUROSEMIDE 40 MG TABLET PO SCH (08:25)
[2021-01-27] MEDS: SERTRALINE 100 MG TABLET. PO SCH (08:25)
[2021-01-27] MEDS: DIVALPROEX 125 MG CAP.SPRINK PO SCH ×2 (08:25→17:21)
[2021-01-27] MEDS: risperiDONE 0.5 MG TABLET. PO SCH ×2 (08:26→20:48)
[2021-01-27] MEDS: METOPROLOL TART IMMED RELEASE 50 MG TABLET PO SCH ×2 (08:26→20:48)
[2021-01-27] MEDS: POLYETHYLENE GLYCOL 3350 17 GM PACKET. PO SCH (08:33)
[2021-01-27 16:05] VITALS: BP 148/70
[2021-01-27] MEDS: MIRTAZAPINE ODT 15 MG TAB.RAPDIS. PO SCH (20:48)
[2021-01-27] MEDS: MELATONIN 3 MG TABLET PO SCH (20:48)
[2021-01-27] MEDS: ATORVASTATIN CALCIUM 10 MG TABLET. PO SCH (20:48)
--- NOTE | 2021-01-27 22:20 | PDOC ---
Exam Note: Devang Note: Please also refer to the separate dictated note~for this date of service dictated separately.~Patient seen individually. Discussed the patient with Nursing staff reviewed the chart.~Reviewed interim history and current functioning. Reviewed vital signs,~Labs/ Radiology~and current medications noted below. Continue current treatment with the changes noted in the dictated addendum note Assessment: Vital Signs/I&O: Vital Signs Date Time Temp Pulse Resp B/P (MAP) Pulse Ox O2 Delivery O2 Flow Rate FiO2 01/27/21 20:48 71 148/70 01/27/21 16:05 97.8 16 97 I & O 01/26/21 01/26/21 01/27/21 15:00 23:00 07:00 Intake Total 720 ml 480 ml Balance 720 ml 480 ml Current Medications: Meds: Current Medications Medications (Trade) Dose Ordered Sig/Marguerite Route PRN Reason Start Time Stop Time Status Last Admin Dose Admin Potassium Chloride (Klor-Con) 40 meq 1X ONCE PO 01/04/21 19:00 01/04/21 19:07 DC 01/04/21 19:16 Acetaminophen (Tylenol) 500 mg PRN Q12HR PRN PO PAIN 01/04/21 23:00 Cancel Atorvastatin Calcium (Lipitor) 10 mg QHS PO 01/05/21 21:00 01/27/21 20:48 Furosemide (Lasix) 40 mg DAILY PO 01/05/21 09:00 01/27/21 08:25 Metoprolol Tartrate (Lopressor) 50 mg BID PO 01/05/21 09:00 01/27/21 20:48 Potassium Chloride (Klor-Con) 20 meq DAILY PO 01/05/21 09:00 01/11/21 15:00 DC 01/11/21 08:57 Polyethylene Glycol (miraLAX) 17 gm DAILY PO 01/05/21 09:00 01/27/21 08:33 Lorazepam (Ativan) 1 mg PRN Q4HRS PRN PO ANXIETY / AGITATION 01/04/21 23:00 01/09/21 10:42 DC 01/07/21 23:07 Lorazepam (Ativan Intensol) 1 mg PRN Q6HRS PRN PO ANXIETY / AGITATION 01/04/21 23:00 01/09/21 17:03 DC Risperidone (RisperDAL) 0.25 mg DAILY PO 01/05/21 09:00 01/22/21 17:34 DC 01/22/21 08:35 Risperidone (RisperDAL) 0.5 mg QHS PO 01/05/21 21:00 01/08/21 17:27 DC 01/07/21 20:28 Melatonin (Melatonin) 6 mg HS PO 01/05/21 21:00 01/08/21 17:27 DC 01/07/21 20:28 Acetaminophen (Tylenol) 650 mg PRN Q6HRS PRN PO MILD PAIN / TEMP > 100.3'F 01/04/21 22:45 01/05/21 08:40 Multi-Ingredient Ointment (Analgesic [place]) 1 abby PRN QID PRN TP MUSCLE PAIN 01/04/21 22:45 Al Hydroxide/Mg Hydroxide (Mylanta Plus Xs) 15 ml PRN AFTMEALHC PRN PO DYSPEPSIA 01/04/21 22:45 Magnesium Hydroxide (Milk Of Magnesia) 2,400 mg PRN QHS PRN PO CONSTIPATION 01/04/21 22:45 Potassium Chloride (Klor-Con) 40 meq 1X ONCE PO 01/05/21 15:45 01/05/21 15:49 DC 01/05/21 17:29 Potassium Chloride (Klor-Con) 20 meq BID PO 01/05/21 21:00 01/27/21 20:49 Sertraline HCl (Zoloft) 25 mg DAILY PO 01/07/21 09:00 01/09/21 18:00 DC 01/09/21 08:24 Sertraline HCl (Zoloft) 50 mg DAILY PO 01/10/21 09:00 01/14/21 11:10 DC 01/14/21 08:11 Melatonin (Melatonin) 3 mg HS PO 01/08/21 21:00 01/27/21 20:48 Trazodone HCl (Desyrel) 50 mg PRN QHS PRN PO INSOMNIA MRX1 01/08/21 17:30 01/21/21 00:31 Risperidone (RisperDAL) 1 mg QHS PO 01/08/21 21:00 01/08/21 19:47 DC Olanzapine (ZyPREXA ZYDIS) 2.5 mg PRN Q2HRS PRN PO PSYCHOSIS 01/08/21 19:45 01/26/21 20:25 Risperidone (RisperDAL) 0.5 mg HS PO 01/08/21 21:00 01/08/21 19:58 DC Risperidone (RisperDAL) 0.25 mg HS PO 01/08/21 20:00 01/08/21 20:01 DC Risperidone (RisperDAL) 0.25 mg HS PO 01/08/21 21:00 01/14/21 11:11 DC 01/13/21 20:11 Lorazepam (Ativan Intensol) 0.25 mg PRN Q6HRS PRN PO ANXIETY / AGITATION 01/09/21 17:15 01/09/21 17:46 DC Lorazepam (Ativan Intensol) 0.25 mg PRN TID PRN PO ANXIETY / AGITATION 01/09/21 17:45 01/19/21 17:50 Trazodone HCl (Desyrel) 50 mg 1445 ONCE PO 01/11/21 14:45 01/11/21 14:54 DC Mirtazapine (Remeron) 7.5 mg QHS PO 01/11/21 21:00 01/18/21 19:49 DC 01/17/21 19:38 Sertraline HCl (Zoloft) 75 mg DAILY PO 01/15/21 09:00 01/19/21 17:19 DC 01/19/21 08:14 Risperidone (RisperDAL) 0.5 mg QHS PO 01/14/21 21:00 01/27/21 20:48 Mirtazapine (Remeron Anum-Tab) 15 mg QHS PO 01/18/21 21:00 01/27/21 20:48 Sertraline HCl (Zoloft) 100 mg DAILY PO 01/20/21 09:00 01/27/21 08:25 Divalproex Sodium (Depakote Sprinkles) 125 mg DAILY PO 01/22/21 09:00 01/27/21 08:25 Divalproex Sodium (Depakote Sprinkles) 125 mg DAILYWSUP PO 01/21/21 17:00 01/27/21 17:21 Risperidone (RisperDAL) 0.5 mg DAILY PO 01/23/21 09:00 01/27/21 08:26 I have reviewed the current psychotropics carefully including drug interactions. Risk benefit ratio favors no change other than as noted in my dictated progress note. 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
[2021-01-28 06:38] VITALS: BP 116/63
--- NOTE | 2021-01-28 08:23 | PDOC ---
Exam Note: Devang Note: This note is a late entry for 01/27/2021 covers elements not covered in my initial note. Subjective: The patient was seen individually in the evening of 01/27/2021 with Dawood MARIANO, discussed and reviewed the chart. The patient slept 5 hours previous night. She remains confused previous night, felt her parents were missing. She got some Zyprexa and then was calmer. Today she is compliant with her medications in meals. Review of Systems: Ambulation impaired. No CV, , pulmonary, eye system symptoms on review. Mental Status Exam: The patient is oriented to herself. Insight and judgment, recent and remote memory, attention and concentration is poor consistent with her diagnoses. Laboratory Data: Reviewed. Impression: Major neurocognitive disorder Alzheimer vascular with delusion, depression, and behavioral disturbance. Anxiety disorder unspecified. Impulse control disorder unspecified. Plan: Continue psychotropics as noted above. Assessment: Vital Signs/I&O: Vital Signs Date Time Temp Pulse Resp B/P (MAP) Pulse Ox O2 Delivery O2 Flow Rate FiO2 01/28/21 06:38 97.4 65 20 116/63 (80) 95 Room Air I & O 01/27/21 01/27/21 01/28/21 15:00 23:00 07:00 Intake Total 480 ml 480 ml Balance 480 ml 480 ml Current Medications: Meds: Current Medications Medications (Trade) Dose Ordered Sig/Marguerite Route PRN Reason Start Time Stop Time Status Last Admin Dose Admin Potassium Chloride (Klor-Con) 40 meq 1X ONCE PO 01/04/21 19:00 01/04/21 19:07 DC 01/04/21 19:16 Acetaminophen (Tylenol) 500 mg PRN Q12HR PRN PO PAIN 01/04/21 23:00 Cancel Atorvastatin Calcium (Lipitor) 10 mg QHS PO 01/05/21 21:00 01/27/21 20:48 Furosemide (Lasix) 40 mg DAILY PO 01/05/21 09:00 01/27/21 08:25 Metoprolol Tartrate (Lopressor) 50 mg BID PO 01/05/21 09:00 01/27/21 20:48 Potassium Chloride (Klor-Con) 20 meq DAILY PO 01/05/21 09:00 01/11/21 15:00 DC 01/11/21 08:57 Polyethylene Glycol (miraLAX) 17 gm DAILY PO 01/05/21 09:00 01/27/21 08:33 Lorazepam (Ativan) 1 mg PRN Q4HRS PRN PO ANXIETY / AGITATION 01/04/21 23:00 01/09/21 10:42 DC 01/07/21 23:07 Lorazepam (Ativan Intensol) 1 mg PRN Q6HRS PRN PO ANXIETY / AGITATION 01/04/21 23:00 01/09/21 17:03 DC Risperidone (RisperDAL) 0.25 mg DAILY PO 01/05/21 09:00 01/22/21 17:34 DC 01/22/21 08:35 Risperidone (RisperDAL) 0.5 mg QHS PO 01/05/21 21:00 01/08/21 17:27 DC 01/07/21 20:28 Melatonin (Melatonin) 6 mg HS PO 01/05/21 21:00 01/08/21 17:27 DC 01/07/21 20:28 Acetaminophen (Tylenol) 650 mg PRN Q6HRS PRN PO MILD PAIN / TEMP > 100.3'F 01/04/21 22:45 01/05/21 08:40 Multi-Ingredient Ointment (Analgesic [place]) 1 abby PRN QID PRN TP MUSCLE PAIN 01/04/21 22:45 Al Hydroxide/Mg Hydroxide (Mylanta Plus Xs) 15 ml PRN AFTMEALHC PRN PO DYSPEPSIA 01/04/21 22:45 Magnesium Hydroxide (Milk Of Magnesia) 2,400 mg PRN QHS PRN PO CONSTIPATION 01/04/21 22:45 Potassium Chloride (Klor-Con) 40 meq 1X ONCE PO 01/05/21 15:45 01/05/21 15:49 DC 01/05/21 17:29 Potassium Chloride (Klor-Con) 20 meq BID PO 01/05/21 21:00 01/27/21 20:49 Sertraline HCl (Zoloft) 25 mg DAILY PO 01/07/21 09:00 01/09/21 18:00 DC 01/09/21 08:24 Sertraline HCl (Zoloft) 50 mg DAILY PO 01/10/21 09:00 01/14/21 11:10 DC 01/14/21 08:11 Melatonin (Melatonin) 3 mg HS PO 01/08/21 21:00 01/27/21 20:48 Trazodone HCl (Desyrel) 50 mg PRN QHS PRN PO INSOMNIA MRX1 01/08/21 17:30 01/21/21 00:31 Risperidone (RisperDAL) 1 mg QHS PO 01/08/21 21:00 01/08/21 19:47 DC Olanzapine (ZyPREXA ZYDIS) 2.5 mg PRN Q2HRS PRN PO PSYCHOSIS 01/08/21 19:45 01/26/21 20:25 Risperidone (RisperDAL) 0.5 mg HS PO 01/08/21 21:00 01/08/21 19:58 DC Risperidone (RisperDAL) 0.25 mg HS PO 01/08/21 20:00 01/08/21 20:01 DC Risperidone (RisperDAL) 0.25 mg HS PO 01/08/21 21:00 01/14/21 11:11 DC 01/13/21 20:11 Lorazepam (Ativan Intensol) 0.25 mg PRN Q6HRS PRN PO ANXIETY / AGITATION 01/09/21 17:15 01/09/21 17:46 DC Lorazepam (Ativan Intensol) 0.25 mg PRN TID PRN PO ANXIETY / AGITATION 01/09/21 17:45 01/19/21 17:50 Trazodone HCl (Desyrel) 50 mg 1445 ONCE PO 01/11/21 14:45 01/11/21 14:54 DC Mirtazapine (Remeron) 7.5 mg QHS PO 01/11/21 21:00 01/18/21 19:49 DC 01/17/21 19:38 Sertraline HCl (Zoloft) 75 mg DAILY PO 01/15/21 09:00 01/19/21 17:19 DC 01/19/21 08:14 Risperidone (RisperDAL) 0.5 mg QHS PO 01/14/21 21:00 01/27/21 20:48 Mirtazapine (Remeron Anum-Tab) 15 mg QHS PO 01/18/21 21:00 01/27/21 20:48 Sertraline HCl (Zoloft) 100 mg DAILY PO 01/20/21 09:00 01/27/21 08:25 Divalproex Sodium (Depakote Sprinkles) 125 mg DAILY PO 01/22/21 09:00 01/27/21 08:25 Divalproex Sodium (Depakote Sprinkles) 125 mg DAILYWSUP PO 01/21/21 17:00 01/27/21 17:21 Risperidone (RisperDAL) 0.5 mg DAILY PO 01/23/21 09:00 01/27/21 08:26 I have reviewed the current psychotropics carefully including drug interactions. Risk benefit ratio favors no change other than as noted in my dictated progress note. 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
[2021-01-28] MEDS: FUROSEMIDE 40 MG TABLET PO SCH (08:43)
[2021-01-28] MEDS: risperiDONE 0.5 MG TABLET. PO SCH ×2 (08:43→20:21)
[2021-01-28] MEDS: POTASSIUM CHLORIDE 20 MEQ TABLET.ER. PO SCH ×2 (08:44→20:21)
[2021-01-28] MEDS: SERTRALINE 100 MG TABLET. PO SCH (08:44)
[2021-01-28] MEDS: DIVALPROEX 125 MG CAP.SPRINK PO SCH ×2 (08:44→17:19)
[2021-01-28] MEDS: METOPROLOL TART IMMED RELEASE 50 MG TABLET PO SCH ×2 (08:45→20:22)
[2021-01-28] MEDS: POLYETHYLENE GLYCOL 3350 17 GM PACKET. PO SCH (08:46)
[2021-01-28 15:58] VITALS: BP 118/57
--- NOTE | 2021-01-28 17:30 | TX PLAN ---
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 Reasons for Admission: Aggressive, Agitated, Combative, Confusion/Disoriented, Poor impulse control Problem in Patient's Words: According to the intake, pt is aggressive to staff and peers, resistive and combative at times of care, bit a nurse, agitated, irritable and hostile. Problems Active Problems: agitated resistive impulsive non-compliant with medication Inactive Problems: N/A Pt Strengths/Limitations Ability for [place]: Poor Cognitive Functioning/Ability: Fair Communication Skills/Ability: Fair Financial Resources: Fair Insight/Judgement: Fair Intellectual Ability: Fair Physical Health: Poor Social Skills: Poor Stability in Family: Excellent Stability in School/Work: Poor Verbal Skills: Fair Discharge Criteria Discharge Criteria: No need for close observ., Adequate arrangements @DC, Improved behavior, Improved mood/thought Preliminary Discharge Plan Preliminary DC Plan: Placement Needed Special Precautions Fall Risk: Moderate Initial D/C Plan Pt will need a different level of care upon discharge Identified Discharge Needs: Referrals to placement Currently Utilized Resources Currently Utilized Resources/P: Primary Care Physician Identified Problems/Hx/Goals Objectives/Short-Term Goals Short Term Goals: Dec. Aggression, Dec. Outbursts, Medication Stabilization, Promote Coping Skill Short Term Goals in Patient's: N/A Interventions/Frequency Staff Interventions/Frequency&: Psychiatrist to assess pt at least 3x per week for medication stabilization. Social Work to assess pt at least 2x per week to identify barriers to care and finalize discharge plans. Nursing to assess medication effects, behavior management and complete 15 minute checks daily. Encourage group paricipation in activities (if applicable) or 1:1 engagement based off Activity Dept goals. 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 Education: Graduated 12th grade Community Follow-up Primary Care Physicain Treatment Plan Explained Patient/Operations Inspector had this treatment plan explained to him/her as indicated by the signature below and has been given the opportunity to ask questions and make suggestions: Date: Patient/Operations Inspector Signature: Status Update Update Pt son, Emiliano, participated in treatment team via phone. Pt is eating roughly 75% of meals and sleeping on average 6 hours per night. Pt is pleasantly confused but appears to be more compliant with medications. Pt does require some encouragement but does end up taking her medication crushed in pudding/applesauce. Pt does not attend groups and expresses no interest, but is found sitting in the hallway and interacting with her peers. Pt is not physically more aggressive which is a grave improvement since admission. OPAL has been working with the family in finding placement; [facility] has tentatively accepted pending more consistent behaviors and less noted aggression. OPAL will follow up on placement as requested on Monday with the potential for discharge middle to the latter part of next week. GALINA THOMSON Jan 28, 2021 17:30
[2021-01-28] MEDS: MELATONIN 3 MG TABLET PO SCH (20:21)
[2021-01-28] MEDS: ATORVASTATIN CALCIUM 10 MG TABLET. PO SCH (20:21)
[2021-01-28] MEDS: MIRTAZAPINE ODT 15 MG TAB.RAPDIS. PO SCH (20:22)
--- NOTE | 2021-01-28 22:17 | PDOC ---
Exam Note: Devang Note: Please also refer to the separate dictated note~for this date of service dictated separately.~Patient seen individually. Discussed the patient with Nursing staff reviewed the chart.~Reviewed interim history and current functioning. Reviewed vital signs,~Labs/ Radiology~and current medications noted below. Continue current treatment with the changes noted in the dictated addendum note Assessment: Vital Signs/I&O: Vital Signs Date Time Temp Pulse Resp B/P (MAP) Pulse Ox O2 Delivery O2 Flow Rate FiO2 01/28/21 20:22 72 118/57 01/28/21 15:58 97.6 16 94 01/28/21 06:38 Room Air I & O 01/27/21 01/27/21 01/28/21 15:00 23:00 07:00 Intake Total 480 ml 480 ml Balance 480 ml 480 ml Current Medications: Meds: Current Medications Medications (Trade) Dose Ordered Sig/Marguerite Route PRN Reason Start Time Stop Time Status Last Admin Dose Admin Potassium Chloride (Klor-Con) 40 meq 1X ONCE PO 01/04/21 19:00 01/04/21 19:07 DC 01/04/21 19:16 Acetaminophen (Tylenol) 500 mg PRN Q12HR PRN PO PAIN 01/04/21 23:00 Cancel Atorvastatin Calcium (Lipitor) 10 mg QHS PO 01/05/21 21:00 01/28/21 20:21 Furosemide (Lasix) 40 mg DAILY PO 01/05/21 09:00 01/28/21 08:43 Metoprolol Tartrate (Lopressor) 50 mg BID PO 01/05/21 09:00 01/28/21 20:22 Potassium Chloride (Klor-Con) 20 meq DAILY PO 01/05/21 09:00 01/11/21 15:00 DC 01/11/21 08:57 Polyethylene Glycol (miraLAX) 17 gm DAILY PO 01/05/21 09:00 01/28/21 08:46 Lorazepam (Ativan) 1 mg PRN Q4HRS PRN PO ANXIETY / AGITATION 01/04/21 23:00 01/09/21 10:42 DC 01/07/21 23:07 Lorazepam (Ativan Intensol) 1 mg PRN Q6HRS PRN PO ANXIETY / AGITATION 01/04/21 23:00 01/09/21 17:03 DC Risperidone (RisperDAL) 0.25 mg DAILY PO 01/05/21 09:00 01/22/21 17:34 DC 01/22/21 08:35 Risperidone (RisperDAL) 0.5 mg QHS PO 01/05/21 21:00 01/08/21 17:27 DC 01/07/21 20:28 Melatonin (Melatonin) 6 mg HS PO 01/05/21 21:00 01/08/21 17:27 DC 01/07/21 20:28 Acetaminophen (Tylenol) 650 mg PRN Q6HRS PRN PO MILD PAIN / TEMP > 100.3'F 01/04/21 22:45 01/05/21 08:40 Multi-Ingredient Ointment (Analgesic [place]) 1 abby PRN QID PRN TP MUSCLE PAIN 01/04/21 22:45 Al Hydroxide/Mg Hydroxide (Mylanta Plus Xs) 15 ml PRN AFTMEALHC PRN PO DYSPEPSIA 01/04/21 22:45 Magnesium Hydroxide (Milk Of Magnesia) 2,400 mg PRN QHS PRN PO CONSTIPATION 01/04/21 22:45 Potassium Chloride (Klor-Con) 40 meq 1X ONCE PO 01/05/21 15:45 01/05/21 15:49 DC 01/05/21 17:29 Potassium Chloride (Klor-Con) 20 meq BID PO 01/05/21 21:00 01/28/21 20:21 Sertraline HCl (Zoloft) 25 mg DAILY PO 01/07/21 09:00 01/09/21 18:00 DC 01/09/21 08:24 Sertraline HCl (Zoloft) 50 mg DAILY PO 01/10/21 09:00 01/14/21 11:10 DC 01/14/21 08:11 Melatonin (Melatonin) 3 mg HS PO 01/08/21 21:00 01/28/21 20:21 Trazodone HCl (Desyrel) 50 mg PRN QHS PRN PO INSOMNIA MRX1 01/08/21 17:30 01/21/21 00:31 Risperidone (RisperDAL) 1 mg QHS PO 01/08/21 21:00 01/08/21 19:47 DC Olanzapine (ZyPREXA ZYDIS) 2.5 mg PRN Q2HRS PRN PO PSYCHOSIS 01/08/21 19:45 01/28/21 18:20 Risperidone (RisperDAL) 0.5 mg HS PO 01/08/21 21:00 01/08/21 19:58 DC Risperidone (RisperDAL) 0.25 mg HS PO 01/08/21 20:00 01/08/21 20:01 DC Risperidone (RisperDAL) 0.25 mg HS PO 01/08/21 21:00 01/14/21 11:11 DC 01/13/21 20:11 Lorazepam (Ativan Intensol) 0.25 mg PRN Q6HRS PRN PO ANXIETY / AGITATION 01/09/21 17:15 01/09/21 17:46 DC Lorazepam (Ativan Intensol) 0.25 mg PRN TID PRN PO ANXIETY / AGITATION 01/09/21 17:45 01/19/21 17:50 Trazodone HCl (Desyrel) 50 mg 1445 ONCE PO 01/11/21 14:45 01/11/21 14:54 DC Mirtazapine (Remeron) 7.5 mg QHS PO 01/11/21 21:00 01/18/21 19:49 DC 01/17/21 19:38 Sertraline HCl (Zoloft) 75 mg DAILY PO 01/15/21 09:00 01/19/21 17:19 DC 01/19/21 08:14 Risperidone (RisperDAL) 0.5 mg QHS PO 01/14/21 21:00 01/28/21 20:21 Mirtazapine (Remeron Anum-Tab) 15 mg QHS PO 01/18/21 21:00 01/28/21 20:22 Sertraline HCl (Zoloft) 100 mg DAILY PO 01/20/21 09:00 01/28/21 08:44 Divalproex Sodium (Depakote Sprinkles) 125 mg DAILY PO 01/22/21 09:00 01/28/21 08:44 Divalproex Sodium (Depakote Sprinkles) 125 mg DAILYWSUP PO 01/21/21 17:00 01/28/21 17:19 Risperidone (RisperDAL) 0.5 mg DAILY PO 01/23/21 09:00 01/28/21 08:43 I have reviewed the current psychotropics carefully including drug interactions. Risk benefit ratio favors no change other than as noted in my dictated progress note. 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
[2021-01-29 06:32] VITALS: BP 158/71
[2021-01-29] MEDS: risperiDONE 0.5 MG TABLET. PO SCH ×2 (09:00→20:42)
[2021-01-29] MEDS: METOPROLOL TART IMMED RELEASE 50 MG TABLET PO SCH ×2 (09:00→20:46)
[2021-01-29] MEDS: DIVALPROEX 125 MG CAP.SPRINK PO SCH ×2 (09:00→14:47)
[2021-01-29] MEDS: POTASSIUM CHLORIDE 20 MEQ TABLET.ER. PO SCH ×2 (09:00→20:42)
[2021-01-29] MEDS: FUROSEMIDE 40 MG TABLET PO SCH (09:00)
[2021-01-29] MEDS: SERTRALINE 100 MG TABLET. PO SCH (09:00)
[2021-01-29] MEDS: POLYETHYLENE GLYCOL 3350 17 GM PACKET. PO SCH (09:00)
[2021-01-29] MEDS: ACETAMINOPHEN 325 MG TABLET PO PRN (14:47)
[2021-01-29 16:15] VITALS: BP 99/63
[2021-01-29] MEDS: ATORVASTATIN CALCIUM 10 MG TABLET. PO SCH (20:42)
[2021-01-29] MEDS: MELATONIN 3 MG TABLET PO SCH (20:42)
[2021-01-29] MEDS: MIRTAZAPINE ODT 15 MG TAB.RAPDIS. PO SCH (20:43)
[2021-01-29 20:56] VITALS: BP 134/70
--- NOTE | 2021-01-29 22:10 | PDOC ---
Exam Note: Devang Note: Please also refer to the separate dictated note~for this date of service dictated separately.~Patient seen individually. Discussed the patient with Nursing staff reviewed the chart.~Reviewed interim history and current functioning. Reviewed vital signs,~Labs/ Radiology~and current medications noted below. Continue current treatment with the changes noted in the dictated addendum note Assessment: Vital Signs/I&O: Vital Signs Date Time Temp Pulse Resp B/P (MAP) Pulse Ox O2 Delivery O2 Flow Rate FiO2 01/29/21 20:56 97.3 71 16 134/70 (91) 93 Room Air I & O 01/28/21 01/28/21 01/29/21 15:00 23:00 07:00 Intake Total 360 ml 440 ml Balance 360 ml 440 ml Current Medications: Meds: Current Medications Medications (Trade) Dose Ordered Sig/Marguerite Route PRN Reason Start Time Stop Time Status Last Admin Dose Admin Potassium Chloride (Klor-Con) 40 meq 1X ONCE PO 01/04/21 19:00 01/04/21 19:07 DC 01/04/21 19:16 Acetaminophen (Tylenol) 500 mg PRN Q12HR PRN PO PAIN 01/04/21 23:00 Cancel Atorvastatin Calcium (Lipitor) 10 mg QHS PO 01/05/21 21:00 01/29/21 20:42 Furosemide (Lasix) 40 mg DAILY PO 01/05/21 09:00 01/29/21 09:00 Metoprolol Tartrate (Lopressor) 50 mg BID PO 01/05/21 09:00 01/29/21 20:46 Potassium Chloride (Klor-Con) 20 meq DAILY PO 01/05/21 09:00 01/11/21 15:00 DC 01/11/21 08:57 Polyethylene Glycol (miraLAX) 17 gm DAILY PO 01/05/21 09:00 01/29/21 09:00 Lorazepam (Ativan) 1 mg PRN Q4HRS PRN PO ANXIETY / AGITATION 01/04/21 23:00 01/09/21 10:42 DC 01/07/21 23:07 Lorazepam (Ativan Intensol) 1 mg PRN Q6HRS PRN PO ANXIETY / AGITATION 01/04/21 23:00 01/09/21 17:03 DC Risperidone (RisperDAL) 0.25 mg DAILY PO 01/05/21 09:00 01/22/21 17:34 DC 01/22/21 08:35 Risperidone (RisperDAL) 0.5 mg QHS PO 01/05/21 21:00 01/08/21 17:27 DC 01/07/21 20:28 Melatonin (Melatonin) 6 mg HS PO 01/05/21 21:00 01/08/21 17:27 DC 01/07/21 20:28 Acetaminophen (Tylenol) 650 mg PRN Q6HRS PRN PO MILD PAIN / TEMP > 100.3'F 01/04/21 22:45 01/29/21 14:47 Multi-Ingredient Ointment (Analgesic [place]) 1 abby PRN QID PRN TP MUSCLE PAIN 01/04/21 22:45 Al Hydroxide/Mg Hydroxide (Mylanta Plus Xs) 15 ml PRN AFTMEALHC PRN PO DYSPEPSIA 01/04/21 22:45 Magnesium Hydroxide (Milk Of Magnesia) 2,400 mg PRN QHS PRN PO CONSTIPATION 01/04/21 22:45 Potassium Chloride (Klor-Con) 40 meq 1X ONCE PO 01/05/21 15:45 01/05/21 15:49 DC 01/05/21 17:29 Potassium Chloride (Klor-Con) 20 meq BID PO 01/05/21 21:00 01/29/21 20:42 Sertraline HCl (Zoloft) 25 mg DAILY PO 01/07/21 09:00 01/09/21 18:00 DC 01/09/21 08:24 Sertraline HCl (Zoloft) 50 mg DAILY PO 01/10/21 09:00 01/14/21 11:10 DC 01/14/21 08:11 Melatonin (Melatonin) 3 mg HS PO 01/08/21 21:00 01/29/21 20:42 Trazodone HCl (Desyrel) 50 mg PRN QHS PRN PO INSOMNIA MRX1 01/08/21 17:30 01/21/21 00:31 Risperidone (RisperDAL) 1 mg QHS PO 01/08/21 21:00 01/08/21 19:47 DC Olanzapine (ZyPREXA ZYDIS) 2.5 mg PRN Q2HRS PRN PO PSYCHOSIS 01/08/21 19:45 01/29/21 14:47 Risperidone (RisperDAL) 0.5 mg HS PO 01/08/21 21:00 01/08/21 19:58 DC Risperidone (RisperDAL) 0.25 mg HS PO 01/08/21 20:00 01/08/21 20:01 DC Risperidone (RisperDAL) 0.25 mg HS PO 01/08/21 21:00 01/14/21 11:11 DC 01/13/21 20:11 Lorazepam (Ativan Intensol) 0.25 mg PRN Q6HRS PRN PO ANXIETY / AGITATION 01/09/21 17:15 01/09/21 17:46 DC Lorazepam (Ativan Intensol) 0.25 mg PRN TID PRN PO ANXIETY / AGITATION 01/09/21 17:45 01/19/21 17:50 Trazodone HCl (Desyrel) 50 mg 1445 ONCE PO 01/11/21 14:45 01/11/21 14:54 DC Mirtazapine (Remeron) 7.5 mg QHS PO 01/11/21 21:00 01/18/21 19:49 DC 01/17/21 19:38 Sertraline HCl (Zoloft) 75 mg DAILY PO 01/15/21 09:00 01/19/21 17:19 DC 01/19/21 08:14 Risperidone (RisperDAL) 0.5 mg QHS PO 01/14/21 21:00 01/29/21 20:42 Mirtazapine (Remeron Anum-Tab) 15 mg QHS PO 01/18/21 21:00 01/29/21 20:43 Sertraline HCl (Zoloft) 100 mg DAILY PO 01/20/21 09:00 01/29/21 09:00 Divalproex Sodium (Depakote Sprinkles) 125 mg DAILY PO 01/22/21 09:00 01/29/21 09:00 Divalproex Sodium (Depakote Sprinkles) 125 mg DAILYWSUP PO 01/21/21 17:00 01/29/21 14:47 Risperidone (RisperDAL) 0.5 mg DAILY PO 01/23/21 09:00 01/29/21 09:00 I have reviewed the current psychotropics carefully including drug interactions. Risk benefit ratio favors no change other than as noted in my dictated progress note. Diagnosis: Problems: (1) Dementia in Alzheimer's disease with depression (2) Dementia in Alzheimer's disease with delusions (3) Dementia of the Alzheimer's type with early onset with behavioral disturbance (4) Major neurocognitive disorder (5) Impulse control disorder, unspecified (6) Anxiety disorder, unspecified (7) Dementia, vascular, with depression (8) Dementia, vascular, with delusions OFE MONTENEGRO MD Jan 29, 2021 22:10
[2021-01-30 05:33] VITALS: BP 122/58
[2021-01-30] MEDS: FUROSEMIDE 40 MG TABLET PO SCH (08:47)
[2021-01-30] MEDS: POLYETHYLENE GLYCOL 3350 17 GM PACKET. PO SCH (08:47)
[2021-01-30] MEDS: POTASSIUM CHLORIDE 20 MEQ TABLET.ER. PO SCH ×2 (08:47→19:45)
[2021-01-30] MEDS: METOPROLOL TART IMMED RELEASE 50 MG TABLET PO SCH ×2 (08:47→19:45)
[2021-01-30] MEDS: SERTRALINE 100 MG TABLET. PO SCH (08:47)
[2021-01-30] MEDS: DIVALPROEX 125 MG CAP.SPRINK PO SCH ×2 (08:47→16:46)
[2021-01-30] MEDS: risperiDONE 0.5 MG TABLET. PO SCH ×2 (08:51→19:45)
--- NOTE | 2021-01-30 09:14 | PDOC ---
Exam Note: Devang Note: This note is a late entry for 01/28/2021 covers elements not covered in my initial note. Subjective: The patient was seen individually in the morning of 01/28/2021 for a treatment team meeting with Karli Villegas, Alejandra Pena (child protective services social worker), Judith, activity therapy and Ifeoma RN, discussed and reviewed the chart. We had lengthy discussion about the patients diagnoses, progress, adjustment in her Risperdal, risk-benefit ratio of atypical antipsychotics with dementia. The patient slept 5-3/4 hours previous night. Her son Dennys attended the conference. She takes her medications in pudding. She may be accepted at [facility] once her behavior stabilized which in fact they are doing better. Review of Systems: No CV, , pulmonary, eye system symptoms on review. Reliability poor. Mental Status Exam: The patient is oriented to herself. Insight and judgment, recent and remote memory, attention and concentration is poor consistent with her diagnoses. Laboratory Data: Reviewed. Impression: Major neurocognitive disorder Alzheimer vascular with delusion, depression, and behavioral disturbance. Anxiety disorder unspecified. Impulse control disorder unspecified. Plan: Continue current psychotropics. We have increased Risperdal to 0.5 mg b.i.d., Zoloft 100 mg a day, Depakene 125 mg b.i.d. Valproic acid level is subtherapeutic but clinically adequate. She is also on Remeron 15 mg h.s. If behavioral dyscontrol persists, we may increase the Depakote to reach therapeutic level. Assessment: Vital Signs/I&O: Vital Signs Date Time Temp Pulse Resp B/P (MAP) Pulse Ox O2 Delivery O2 Flow Rate FiO2 01/30/21 08:47 65 122/58 01/30/21 05:33 97.7 16 93 Room Air I & O 01/29/21 01/29/21 01/30/21 15:00 23:00 07:00 Intake Total 720 ml 100 ml 240 ml Balance 720 ml 100 ml 240 ml Current Medications: Meds: Current Medications Medications (Trade) Dose Ordered Sig/Marguerite Route PRN Reason Start Time Stop Time Status Last Admin Dose Admin Potassium Chloride (Klor-Con) 40 meq 1X ONCE PO 01/04/21 19:00 01/04/21 19:07 DC 01/04/21 19:16 Acetaminophen (Tylenol) 500 mg PRN Q12HR PRN PO PAIN 01/04/21 23:00 Cancel Atorvastatin Calcium (Lipitor) 10 mg QHS PO 01/05/21 21:00 01/29/21 20:42 Furosemide (Lasix) 40 mg DAILY PO 01/05/21 09:00 01/30/21 08:47 Metoprolol Tartrate (Lopressor) 50 mg BID PO 01/05/21 09:00 01/30/21 08:47 Potassium Chloride (Klor-Con) 20 meq DAILY PO 01/05/21 09:00 01/11/21 15:00 DC 01/11/21 08:57 Polyethylene Glycol (miraLAX) 17 gm DAILY PO 01/05/21 09:00 01/30/21 08:47 Lorazepam (Ativan) 1 mg PRN Q4HRS PRN PO ANXIETY / AGITATION 01/04/21 23:00 01/09/21 10:42 DC 01/07/21 23:07 Lorazepam (Ativan Intensol) 1 mg PRN Q6HRS PRN PO ANXIETY / AGITATION 01/04/21 23:00 01/09/21 17:03 DC Risperidone (RisperDAL) 0.25 mg DAILY PO 01/05/21 09:00 01/22/21 17:34 DC 01/22/21 08:35 Risperidone (RisperDAL) 0.5 mg QHS PO 01/05/21 21:00 01/08/21 17:27 DC 01/07/21 20:28 Melatonin (Melatonin) 6 mg HS PO 01/05/21 21:00 01/08/21 17:27 DC 01/07/21 20:28 Acetaminophen (Tylenol) 650 mg PRN Q6HRS PRN PO MILD PAIN / TEMP > 100.3'F 01/04/21 22:45 01/29/21 14:47 Multi-Ingredient Ointment (Analgesic [place]) 1 abby PRN QID PRN TP MUSCLE PAIN 01/04/21 22:45 Al Hydroxide/Mg Hydroxide (Mylanta Plus Xs) 15 ml PRN AFTMEALHC PRN PO DYSPEPSIA 01/04/21 22:45 Magnesium Hydroxide (Milk Of Magnesia) 2,400 mg PRN QHS PRN PO CONSTIPATION 01/04/21 22:45 Potassium Chloride (Klor-Con) 40 meq 1X ONCE PO 01/05/21 15:45 01/05/21 15:49 DC 01/05/21 17:29 Potassium Chloride (Klor-Con) 20 meq BID PO 01/05/21 21:00 01/30/21 08:47 Sertraline HCl (Zoloft) 25 mg DAILY PO 01/07/21 09:00 01/09/21 18:00 DC 01/09/21 08:24 Sertraline HCl (Zoloft) 50 mg DAILY PO 01/10/21 09:00 01/14/21 11:10 DC 01/14/21 08:11 Melatonin (Melatonin) 3 mg HS PO 01/08/21 21:00 01/29/21 20:42 Trazodone HCl (Desyrel) 50 mg PRN QHS PRN PO INSOMNIA MRX1 01/08/21 17:30 01/21/21 00:31 Risperidone (RisperDAL) 1 mg QHS PO 01/08/21 21:00 01/08/21 19:47 DC Olanzapine (ZyPREXA ZYDIS) 2.5 mg PRN Q2HRS PRN PO PSYCHOSIS 01/08/21 19:45 01/29/21 14:47 Risperidone (RisperDAL) 0.5 mg HS PO 01/08/21 21:00 01/08/21 19:58 DC Risperidone (RisperDAL) 0.25 mg HS PO 01/08/21 20:00 01/08/21 20:01 DC Risperidone (RisperDAL) 0.25 mg HS PO 01/08/21 21:00 01/14/21 11:11 DC 01/13/21 20:11 Lorazepam (Ativan Intensol) 0.25 mg PRN Q6HRS PRN PO ANXIETY / AGITATION 01/09/21 17:15 01/09/21 17:46 DC Lorazepam (Ativan Intensol) 0.25 mg PRN TID PRN PO ANXIETY / AGITATION 01/09/21 17:45 01/19/21 17:50 Trazodone HCl (Desyrel) 50 mg 1445 ONCE PO 01/11/21 14:45 01/11/21 14:54 DC Mirtazapine (Remeron) 7.5 mg QHS PO 01/11/21 21:00 01/18/21 19:49 DC 01/17/21 19:38 Sertraline HCl (Zoloft) 75 mg DAILY PO 01/15/21 09:00 01/19/21 17:19 DC 01/19/21 08:14 Risperidone (RisperDAL) 0.5 mg QHS PO 01/14/21 21:00 01/29/21 20:42 Mirtazapine (Remeron Anum-Tab) 15 mg QHS PO 01/18/21 21:00 01/29/21 20:43 Sertraline HCl (Zoloft) 100 mg DAILY PO 01/20/21 09:00 01/30/21 08:47 Divalproex Sodium (Depakote Sprinkles) 125 mg DAILY PO 01/22/21 09:00 01/30/21 08:47 Divalproex Sodium (Depakote Sprinkles) 125 mg DAILYWSUP PO 01/21/21 17:00 01/29/21 14:47 Risperidone (RisperDAL) 0.5 mg DAILY PO 01/23/21 09:00 01/30/21 08:51 I have reviewed the current psychotropics carefully including drug interactions. Risk benefit ratio favors no change other than as noted in my dictated progress note. 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
[2021-01-30 15:51] LABS: BASO % 1 % (0-3); EOS # 0.3 x10^3/uL (0.0-0.7); EOS % 8 % (0-3); HEMOGLOBIN 9.9 g/dL (12.0-15.5); LYMPH # 0.9 x10^3/uL (1.0-4.8); LYMPH % 20 % (24-48); MEAN CORPUSCULAR HEMOGLOBIN 34 pg (25-35); MEAN CORPUSCULAR HGB CONC 33 g/dL (31-37); MEAN CORPUSCULAR VOLUME 102 fL (79-100); MONO # 0.7 x10^3/uL (0.0-1.1); MONO % 16 % (0-9); NEUT # 2.4 x10^3uL (1.8-7.7); NEUT % 55 % (31-73); PLATELET COUNT 209 x10^3/uL (140-400); RED BLOOD COUNT 2.96 x10^6/uL (3.50-5.40); RED CELL DISTRIBUTION WIDTH 15.8 % (11.5-14.5); WHITE BLOOD COUNT 4.3 x10^3/uL (4.0-11.0)
[2021-01-30 15:56] LABS: ALBUMIN 3.2 g/dL (3.4-5.0); ALBUMIN/GLOBULIN RATIO 0.9 (1.0-1.7); CALCIUM 8.1 mg/dL (8.5-10.1); CREATININE 0.9 mg/dL (0.6-1.0); GFR 59.4; MAGNESIUM 1.9 mg/dL (1.8-2.4); POTASSIUM 3.8 mmol/L (3.5-5.1); TOTAL BILIRUBIN 0.3 mg/dL (0.2-1.0); TOTAL PROTEIN 6.8 g/dL (6.4-8.2)
[2021-01-30 16:25] VITALS: BP 121/69
[2021-01-30] MEDS: MELATONIN 3 MG TABLET PO SCH (19:45)
[2021-01-30] MEDS: MIRTAZAPINE ODT 15 MG TAB.RAPDIS. PO SCH (19:45)
[2021-01-30] MEDS: ATORVASTATIN CALCIUM 10 MG TABLET. PO SCH (19:45)
--- NOTE | 2021-01-30 22:10 | PDOC ---
Exam Note: Devang Note: Please also refer to the separate dictated note~for this date of service dictated separately.~Patient seen individually. Discussed the patient with Nursing staff reviewed the chart.~Reviewed interim history and current functioning. Reviewed vital signs,~Labs/ Radiology~and current medications noted below. Continue current treatment with the changes noted in the dictated addendum note Assessment: Vital Signs/I&O: Vital Signs Date Time Temp Pulse Resp B/P (MAP) Pulse Ox O2 Delivery O2 Flow Rate FiO2 01/30/21 19:45 68 121/69 01/30/21 16:25 97.9 18 97 01/30/21 05:33 Room Air I & O 01/29/21 01/29/21 01/30/21 14:59 22:59 06:59 Intake Total 720 ml 100 ml 240 ml Balance 720 ml 100 ml 240 ml Labs: Laboratory Tests Test 01/30/21 15:10 White Blood Count 4.3 x10^3/uL (4.0-11.0) Red Blood Count 2.96 x10^6/uL (3.50-5.40) L Hemoglobin 9.9 g/dL (12.0-15.5) L Hematocrit 30.0 % (36.0-47.0) L Mean Corpuscular Volume 102 fL (79-100) H Mean Corpuscular Hemoglobin 34 pg (25-35) Mean Corpuscular Hemoglobin Concent 33 g/dL (31-37) Red Cell Distribution Width 15.8 % (11.5-14.5) H Platelet Count 209 x10^3/uL (140-400) Neutrophils (%) (Auto) 55 % (31-73) Lymphocytes (%) (Auto) 20 % (24-48) L Monocytes (%) (Auto) 16 % (0-9) H Eosinophils (%) (Auto) 8 % (0-3) H Basophils (%) (Auto) 1 % (0-3) Neutrophils # (Auto) 2.4 x10^3uL (1.8-7.7) Lymphocytes # (Auto) 0.9 x10^3/uL (1.0-4.8) L Monocytes # (Auto) 0.7 x10^3/uL (0.0-1.1) Eosinophils # (Auto) 0.3 x10^3/uL (0.0-0.7) Basophils # (Auto) 0.0 x10^3/uL (0.0-0.2) Sodium Level 144 mmol/L (136-145) Potassium Level 3.8 mmol/L (3.5-5.1) Chloride Level 106 mmol/L (98-107) Carbon Dioxide Level 30 mmol/L (21-32) Anion Gap 8 (6-14) Blood Urea Nitrogen 35 mg/dL (7-20) H Creatinine 0.9 mg/dL (0.6-1.0) Estimated GFR (Cockcroft-Gault) 59.4 BUN/Creatinine Ratio 39 (6-20) H Glucose Level 128 mg/dL (70-99) H Calcium Level 8.1 mg/dL (8.5-10.1) L Magnesium Level 1.9 mg/dL (1.8-2.4) Total Bilirubin 0.3 mg/dL (0.2-1.0) Aspartate Amino Transferase (AST) 15 U/L (15-37) Alanine Aminotransferase (ALT) 22 U/L (14-59) Alkaline Phosphatase 59 U/L (46-116) Total Protein 6.8 g/dL (6.4-8.2) Albumin 3.2 g/dL (3.4-5.0) L Albumin/Globulin Ratio 0.9 (1.0-1.7) L Current Medications: Meds: Laboratory Tests Test 01/30/21 15:10 White Blood Count 4.3 x10^3/uL Red Blood Count 2.96 x10^6/uL Hemoglobin 9.9 g/dL Hematocrit 30.0 % Mean Corpuscular Volume 102 fL Mean Corpuscular Hemoglobin 34 pg Mean Corpuscular Hemoglobin Concent 33 g/dL Red Cell Distribution Width 15.8 % Platelet Count 209 x10^3/uL Neutrophils (%) (Auto) 55 % Lymphocytes (%) (Auto) 20 % Monocytes (%) (Auto) 16 % Eosinophils (%) (Auto) 8 % Basophils (%) (Auto) 1 % Neutrophils # (Auto) 2.4 x10^3uL Lymphocytes # (Auto) 0.9 x10^3/uL Monocytes # (Auto) 0.7 x10^3/uL Eosinophils # (Auto) 0.3 x10^3/uL Basophils # (Auto) 0.0 x10^3/uL Sodium Level 144 mmol/L Potassium Level 3.8 mmol/L Chloride Level 106 mmol/L Carbon Dioxide Level 30 mmol/L Anion Gap 8 Blood Urea Nitrogen 35 mg/dL Creatinine 0.9 mg/dL Estimated GFR (Cockcroft-Gault) 59.4 BUN/Creatinine Ratio 39 Glucose Level 128 mg/dL Calcium Level 8.1 mg/dL Magnesium Level 1.9 mg/dL Total Bilirubin 0.3 mg/dL Aspartate Amino Transf (AST/SGOT) 15 U/L Alanine Aminotransferase (ALT/SGPT) 22 U/L Alkaline Phosphatase 59 U/L Total Protein 6.8 g/dL Albumin 3.2 g/dL Albumin/Globulin Ratio 0.9 Current Medications Medications (Trade) Dose Ordered Sig/Marguerite Route PRN Reason Start Time Stop Time Status Last Admin Dose Admin Potassium Chloride (Klor-Con) 40 meq 1X ONCE PO 01/04/21 19:00 01/04/21 19:07 DC 01/04/21 19:16 Acetaminophen (Tylenol) 500 mg PRN Q12HR PRN PO PAIN 01/04/21 23:00 Cancel Atorvastatin Calcium (Lipitor) 10 mg QHS PO 01/05/21 21:00 01/30/21 19:45 Furosemide (Lasix) 40 mg DAILY PO 01/05/21 09:00 01/30/21 08:47 Metoprolol Tartrate (Lopressor) 50 mg BID PO 01/05/21 09:00 01/30/21 19:45 Potassium Chloride (Klor-Con) 20 meq DAILY PO 01/05/21 09:00 01/11/21 15:00 DC 01/11/21 08:57 Polyethylene Glycol (miraLAX) 17 gm DAILY PO 01/05/21 09:00 01/30/21 08:47 Lorazepam (Ativan) 1 mg PRN Q4HRS PRN PO ANXIETY / AGITATION 01/04/21 23:00 01/09/21 10:42 DC 01/07/21 23:07 Lorazepam (Ativan Intensol) 1 mg PRN Q6HRS PRN PO ANXIETY / AGITATION 01/04/21 23:00 01/09/21 17:03 DC Risperidone (RisperDAL) 0.25 mg DAILY PO 01/05/21 09:00 01/22/21 17:34 DC 01/22/21 08:35 Risperidone (RisperDAL) 0.5 mg QHS PO 01/05/21 21:00 01/08/21 17:27 DC 01/07/21 20:28 Melatonin (Melatonin) 6 mg HS PO 01/05/21 21:00 01/08/21 17:27 DC 01/07/21 20:28 Acetaminophen (Tylenol) 650 mg PRN Q6HRS PRN PO MILD PAIN / TEMP > 100.3'F 01/04/21 22:45 01/29/21 14:47 Multi-Ingredient Ointment (Analgesic [place]) 1 abby PRN QID PRN TP MUSCLE PAIN 01/04/21 22:45 Al Hydroxide/Mg Hydroxide (Mylanta Plus Xs) 15 ml PRN AFTMEALHC PRN PO DYSPEPSIA 01/04/21 22:45 Magnesium Hydroxide (Milk Of Magnesia) 2,400 mg PRN QHS PRN PO CONSTIPATION 01/04/21 22:45 Potassium Chloride (Klor-Con) 40 meq 1X ONCE PO 01/05/21 15:45 01/05/21 15:49 DC 01/05/21 17:29 Potassium Chloride (Klor-Con) 20 meq BID PO 01/05/21 21:00 01/30/21 19:45 Sertraline HCl (Zoloft) 25 mg DAILY PO 01/07/21 09:00 01/09/21 18:00 DC 01/09/21 08:24 Sertraline HCl (Zoloft) 50 mg DAILY PO 01/10/21 09:00 01/14/21 11:10 DC 01/14/21 08:11 Melatonin (Melatonin) 3 mg HS PO 01/08/21 21:00 01/30/21 19:45 Trazodone HCl (Desyrel) 50 mg PRN QHS PRN PO INSOMNIA MRX1 01/08/21 17:30 01/21/21 00:31 Risperidone (RisperDAL) 1 mg QHS PO 01/08/21 21:00 01/08/21 19:47 DC Olanzapine (ZyPREXA ZYDIS) 2.5 mg PRN Q2HRS PRN PO PSYCHOSIS 01/08/21 19:45 01/29/21 14:47 Risperidone (RisperDAL) 0.5 mg HS PO 01/08/21 21:00 01/08/21 19:58 DC Risperidone (RisperDAL) 0.25 mg HS PO 01/08/21 20:00 01/08/21 20:01 DC Risperidone (RisperDAL) 0.25 mg HS PO 01/08/21 21:00 01/14/21 11:11 DC 01/13/21 20:11 Lorazepam (Ativan Intensol) 0.25 mg PRN Q6HRS PRN PO ANXIETY / AGITATION 01/09/21 17:15 01/09/21 17:46 DC Lorazepam (Ativan Intensol) 0.25 mg PRN TID PRN PO ANXIETY / AGITATION 01/09/21 17:45 01/19/21 17:50 Trazodone HCl (Desyrel) 50 mg 1445 ONCE PO 01/11/21 14:45 01/11/21 14:54 DC Mirtazapine (Remeron) 7.5 mg QHS PO 01/11/21 21:00 01/18/21 19:49 DC 01/17/21 19:38 Sertraline HCl (Zoloft) 75 mg DAILY PO 01/15/21 09:00 01/19/21 17:19 DC 01/19/21 08:14 Risperidone (RisperDAL) 0.5 mg QHS PO 01/14/21 21:00 01/30/21 19:45 Mirtazapine (Remeron Anum-Tab) 15 mg QHS PO 01/18/21 21:00 01/30/21 19:45 Sertraline HCl (Zoloft) 100 mg DAILY PO 01/20/21 09:00 01/30/21 08:47 Divalproex Sodium (Depakote Sprinkles) 125 mg DAILY PO 01/22/21 09:00 01/30/21 08:47 Divalproex Sodium (Depakote Sprinkles) 125 mg DAILYWSUP PO 01/21/21 17:00 01/30/21 16:46 Risperidone (RisperDAL) 0.5 mg DAILY PO 01/23/21 09:00 01/30/21 08:51 I have reviewed the current psychotropics carefully including drug interactions. Risk benefit ratio favors no change other than as noted in my dictated progress note. 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
[2021-01-31 05:30] VITALS: BP 157/77
[2021-01-31] MEDS: POTASSIUM CHLORIDE 20 MEQ TABLET.ER. PO SCH ×2 (09:00→21:10)
--- NOTE | 2021-01-31 09:16 | PDOC ---
Exam Note: Devang Note: This note is a late entry for 01/29/2021 covers elements not covered in my initial note. Subjective: The patient was seen individually in the evening of 01/29/2021 with Kaylee MARIANO, discussed and reviewed the chart. The patient slept 6 hours previous night. She has been calmer, confused, takes medications crushed in pudding. Received Zyprexa x1 p.r.n. and then did better. She is always looking for children. Received p.r.n. Zyprexa Zydis, wandering at times, intrusive. Review of Systems: No CV, , pulmonary, eye system symptoms on review. She is hard of hearing. Mental Status Exam: The patient is oriented to herself. She is verbal, interactive, somewhat distractible, anxious. Insight and judgment, recent and remote memory, attention and concentration is poor consistent with her diagnoses. Laboratory Data: Reviewed. Impression: Major neurocognitive disorder Alzheimer vascular with delusion, depression, and behavioral disturbance. Anxiety disorder unspecified. Impulse control disorder unspecified. Plan: Continue current psychotropics from initial note. Make further adjustments as clinically indicated. Assessment: Vital Signs/I&O: Vital Signs Date Time Temp Pulse Resp B/P (MAP) Pulse Ox O2 Delivery O2 Flow Rate FiO2 01/31/21 05:30 98.5 64 18 157/77 (103) 94 01/30/21 05:33 Room Air I & O 01/30/21 01/30/21 01/31/21 14:59 22:59 06:59 Intake Total 600 ml 240 ml Balance 600 ml 240 ml Labs: Laboratory Tests Test 01/30/21 15:10 White Blood Count 4.3 x10^3/uL (4.0-11.0) Red Blood Count 2.96 x10^6/uL (3.50-5.40) L Hemoglobin 9.9 g/dL (12.0-15.5) L Hematocrit 30.0 % (36.0-47.0) L Mean Corpuscular Volume 102 fL (79-100) H Mean Corpuscular Hemoglobin 34 pg (25-35) Mean Corpuscular Hemoglobin Concent 33 g/dL (31-37) Red Cell Distribution Width 15.8 % (11.5-14.5) H Platelet Count 209 x10^3/uL (140-400) Neutrophils (%) (Auto) 55 % (31-73) Lymphocytes (%) (Auto) 20 % (24-48) L Monocytes (%) (Auto) 16 % (0-9) H Eosinophils (%) (Auto) 8 % (0-3) H Basophils (%) (Auto) 1 % (0-3) Neutrophils # (Auto) 2.4 x10^3uL (1.8-7.7) Lymphocytes # (Auto) 0.9 x10^3/uL (1.0-4.8) L Monocytes # (Auto) 0.7 x10^3/uL (0.0-1.1) Eosinophils # (Auto) 0.3 x10^3/uL (0.0-0.7) Basophils # (Auto) 0.0 x10^3/uL (0.0-0.2) Sodium Level 144 mmol/L (136-145) Potassium Level 3.8 mmol/L (3.5-5.1) Chloride Level 106 mmol/L (98-107) Carbon Dioxide Level 30 mmol/L (21-32) Anion Gap 8 (6-14) Blood Urea Nitrogen 35 mg/dL (7-20) H Creatinine 0.9 mg/dL (0.6-1.0) Estimated GFR (Cockcroft-Gault) 59.4 BUN/Creatinine Ratio 39 (6-20) H Glucose Level 128 mg/dL (70-99) H Calcium Level 8.1 mg/dL (8.5-10.1) L Magnesium Level 1.9 mg/dL (1.8-2.4) Total Bilirubin 0.3 mg/dL (0.2-1.0) Aspartate Amino Transferase (AST) 15 U/L (15-37) Alanine Aminotransferase (ALT) 22 U/L (14-59) Alkaline Phosphatase 59 U/L (46-116) Total Protein 6.8 g/dL (6.4-8.2) Albumin 3.2 g/dL (3.4-5.0) L Albumin/Globulin Ratio 0.9 (1.0-1.7) L Current Medications: Meds: Laboratory Tests Test 01/30/21 15:10 White Blood Count 4.3 x10^3/uL Red Blood Count 2.96 x10^6/uL Hemoglobin 9.9 g/dL Hematocrit 30.0 % Mean Corpuscular Volume 102 fL Mean Corpuscular Hemoglobin 34 pg Mean Corpuscular Hemoglobin Concent 33 g/dL Red Cell Distribution Width 15.8 % Platelet Count 209 x10^3/uL Neutrophils (%) (Auto) 55 % Lymphocytes (%) (Auto) 20 % Monocytes (%) (Auto) 16 % Eosinophils (%) (Auto) 8 % Basophils (%) (Auto) 1 % Neutrophils # (Auto) 2.4 x10^3uL Lymphocytes # (Auto) 0.9 x10^3/uL Monocytes # (Auto) 0.7 x10^3/uL Eosinophils # (Auto) 0.3 x10^3/uL Basophils # (Auto) 0.0 x10^3/uL Sodium Level 144 mmol/L Potassium Level 3.8 mmol/L Chloride Level 106 mmol/L Carbon Dioxide Level 30 mmol/L Anion Gap 8 Blood Urea Nitrogen 35 mg/dL Creatinine 0.9 mg/dL Estimated GFR (Cockcroft-Gault) 59.4 BUN/Creatinine Ratio 39 Glucose Level 128 mg/dL Calcium Level 8.1 mg/dL Magnesium Level 1.9 mg/dL Total Bilirubin 0.3 mg/dL Aspartate Amino Transf (AST/SGOT) 15 U/L Alanine Aminotransferase (ALT/SGPT) 22 U/L Alkaline Phosphatase 59 U/L Total Protein 6.8 g/dL Albumin 3.2 g/dL Albumin/Globulin Ratio 0.9 Current Medications Medications (Trade) Dose Ordered Sig/Marguerite Route PRN Reason Start Time Stop Time Status Last Admin Dose Admin Potassium Chloride (Klor-Con) 40 meq 1X ONCE PO 01/04/21 19:00 01/04/21 19:07 DC 01/04/21 19:16 Acetaminophen (Tylenol) 500 mg PRN Q12HR PRN PO PAIN 01/04/21 23:00 Cancel Atorvastatin Calcium (Lipitor) 10 mg QHS PO 01/05/21 21:00 01/30/21 19:45 Furosemide (Lasix) 40 mg DAILY PO 01/05/21 09:00 01/30/21 08:47 Metoprolol Tartrate (Lopressor) 50 mg BID PO 01/05/21 09:00 01/30/21 19:45 Potassium Chloride (Klor-Con) 20 meq DAILY PO 01/05/21 09:00 01/11/21 15:00 DC 01/11/21 08:57 Polyethylene Glycol (miraLAX) 17 gm DAILY PO 01/05/21 09:00 01/30/21 08:47 Lorazepam (Ativan) 1 mg PRN Q4HRS PRN PO ANXIETY / AGITATION 01/04/21 23:00 01/09/21 10:42 DC 01/07/21 23:07 Lorazepam (Ativan Intensol) 1 mg PRN Q6HRS PRN PO ANXIETY / AGITATION 01/04/21 23:00 01/09/21 17:03 DC Risperidone (RisperDAL) 0.25 mg DAILY PO 01/05/21 09:00 01/22/21 17:34 DC 01/22/21 08:35 Risperidone (RisperDAL) 0.5 mg QHS PO 01/05/21 21:00 01/08/21 17:27 DC 01/07/21 20:28 Melatonin (Melatonin) 6 mg HS PO 01/05/21 21:00 01/08/21 17:27 DC 01/07/21 20:28 Acetaminophen (Tylenol) 650 mg PRN Q6HRS PRN PO MILD PAIN / TEMP > 100.3'F 01/04/21 22:45 01/29/21 14:47 Multi-Ingredient Ointment (Analgesic [place]) 1 abby PRN QID PRN TP MUSCLE PAIN 01/04/21 22:45 Al Hydroxide/Mg Hydroxide (Mylanta Plus Xs) 15 ml PRN AFTMEALHC PRN PO DYSPEPSIA 01/04/21 22:45 Magnesium Hydroxide (Milk Of Magnesia) 2,400 mg PRN QHS PRN PO CONSTIPATION 01/04/21 22:45 Potassium Chloride (Klor-Con) 40 meq 1X ONCE PO 01/05/21 15:45 01/05/21 15:49 DC 01/05/21 17:29 Potassium Chloride (Klor-Con) 20 meq BID PO 01/05/21 21:00 01/30/21 19:45 Sertraline HCl (Zoloft) 25 mg DAILY PO 01/07/21 09:00 01/09/21 18:00 DC 01/09/21 08:24 Sertraline HCl (Zoloft) 50 mg DAILY PO 01/10/21 09:00 01/14/21 11:10 DC 01/14/21 08:11 Melatonin (Melatonin) 3 mg HS PO 01/08/21 21:00 01/30/21 19:45 Trazodone HCl (Desyrel) 50 mg PRN QHS PRN PO INSOMNIA MRX1 01/08/21 17:30 01/21/21 00:31 Risperidone (RisperDAL) 1 mg QHS PO 01/08/21 21:00 01/08/21 19:47 DC Olanzapine (ZyPREXA ZYDIS) 2.5 mg PRN Q2HRS PRN PO PSYCHOSIS 01/08/21 19:45 01/29/21 14:47 Risperidone (RisperDAL) 0.5 mg HS PO 01/08/21 21:00 01/08/21 19:58 DC Risperidone (RisperDAL) 0.25 mg HS PO 01/08/21 20:00 01/08/21 20:01 DC Risperidone (RisperDAL) 0.25 mg HS PO 01/08/21 21:00 01/14/21 11:11 DC 01/13/21 20:11 Lorazepam (Ativan Intensol) 0.25 mg PRN Q6HRS PRN PO ANXIETY / AGITATION 01/09/21 17:15 01/09/21 17:46 DC Lorazepam (Ativan Intensol) 0.25 mg PRN TID PRN PO ANXIETY / AGITATION 01/09/21 17:45 01/19/21 17:50 Trazodone HCl (Desyrel) 50 mg 1445 ONCE PO 01/11/21 14:45 01/11/21 14:54 DC Mirtazapine (Remeron) 7.5 mg QHS PO 01/11/21 21:00 01/18/21 19:49 DC 01/17/21 19:38 Sertraline HCl (Zoloft) 75 mg DAILY PO 01/15/21 09:00 01/19/21 17:19 DC 01/19/21 08:14 Risperidone (RisperDAL) 0.5 mg QHS PO 01/14/21 21:00 01/30/21 19:45 Mirtazapine (Remeron Anum-Tab) 15 mg QHS PO 01/18/21 21:00 01/30/21 19:45 Sertraline HCl (Zoloft) 100 mg DAILY PO 01/20/21 09:00 01/30/21 08:47 Divalproex Sodium (Depakote Sprinkles) 125 mg DAILY PO 01/22/21 09:00 01/30/21 08:47 Divalproex Sodium (Depakote Sprinkles) 125 mg DAILYWSUP PO 01/21/21 17:00 01/30/21 16:46 Risperidone (RisperDAL) 0.5 mg DAILY PO 01/23/21 09:00 01/30/21 08:51 I have reviewed the current psychotropics carefully including drug interactions. Risk benefit ratio favors no change other than as noted in my dictated progress note. 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
[2021-01-31] MEDS: SERTRALINE 100 MG TABLET. PO SCH (09:20)
[2021-01-31] MEDS: risperiDONE 0.5 MG TABLET. PO SCH ×2 (09:20→21:10)
[2021-01-31] MEDS: DIVALPROEX 125 MG CAP.SPRINK PO SCH ×2 (09:20→17:32)
[2021-01-31] MEDS: POLYETHYLENE GLYCOL 3350 17 GM PACKET. PO SCH (09:20)
[2021-01-31] MEDS: METOPROLOL TART IMMED RELEASE 50 MG TABLET PO SCH ×2 (09:21→21:00)
[2021-01-31] MEDS: FUROSEMIDE 40 MG TABLET PO SCH (09:21)
[2021-01-31 16:19] VITALS: BP 92/60
[2021-01-31] MEDS: MELATONIN 3 MG TABLET PO SCH (21:10)
[2021-01-31] MEDS: MIRTAZAPINE ODT 15 MG TAB.RAPDIS. PO SCH (21:10)
[2021-01-31] MEDS: ATORVASTATIN CALCIUM 10 MG TABLET. PO SCH (21:10)
--- NOTE | 2021-01-31 22:07 | PDOC ---
Exam Note: Devang Note: Please also refer to the separate dictated note~for this date of service dictated separately.~Patient seen individually. Discussed the patient with Nursing staff reviewed the chart.~Reviewed interim history and current functioning. Reviewed vital signs,~Labs/ Radiology~and current medications noted below. Continue current treatment with the changes noted in the dictated addendum note Assessment: Vital Signs/I&O: Vital Signs Date Time Temp Pulse Resp B/P (MAP) Pulse Ox O2 Delivery O2 Flow Rate FiO2 01/31/21 21:00 69 92/60 01/31/21 16:19 97.9 17 96 Room Air I & O 01/30/21 01/30/21 01/31/21 15:00 23:00 07:00 Intake Total 600 ml 240 ml Balance 600 ml 240 ml Current Medications: Meds: Current Medications Medications (Trade) Dose Ordered Sig/Marguerite Route PRN Reason Start Time Stop Time Status Last Admin Dose Admin Potassium Chloride (Klor-Con) 40 meq 1X ONCE PO 01/04/21 19:00 01/04/21 19:07 DC 01/04/21 19:16 Acetaminophen (Tylenol) 500 mg PRN Q12HR PRN PO PAIN 01/04/21 23:00 Cancel Atorvastatin Calcium (Lipitor) 10 mg QHS PO 01/05/21 21:00 01/31/21 21:10 Furosemide (Lasix) 40 mg DAILY PO 01/05/21 09:00 01/31/21 09:21 Metoprolol Tartrate (Lopressor) 50 mg BID PO 01/05/21 09:00 01/31/21 09:21 Potassium Chloride (Klor-Con) 20 meq DAILY PO 01/05/21 09:00 01/11/21 15:00 DC 01/11/21 08:57 Polyethylene Glycol (miraLAX) 17 gm DAILY PO 01/05/21 09:00 01/31/21 09:20 Lorazepam (Ativan) 1 mg PRN Q4HRS PRN PO ANXIETY / AGITATION 01/04/21 23:00 01/09/21 10:42 DC 01/07/21 23:07 Lorazepam (Ativan Intensol) 1 mg PRN Q6HRS PRN PO ANXIETY / AGITATION 01/04/21 23:00 01/09/21 17:03 DC Risperidone (RisperDAL) 0.25 mg DAILY PO 01/05/21 09:00 01/22/21 17:34 DC 01/22/21 08:35 Risperidone (RisperDAL) 0.5 mg QHS PO 01/05/21 21:00 01/08/21 17:27 DC 01/07/21 20:28 Melatonin (Melatonin) 6 mg HS PO 01/05/21 21:00 01/08/21 17:27 DC 01/07/21 20:28 Acetaminophen (Tylenol) 650 mg PRN Q6HRS PRN PO MILD PAIN / TEMP > 100.3'F 01/04/21 22:45 01/29/21 14:47 Multi-Ingredient Ointment (Analgesic [place]) 1 abby PRN QID PRN TP MUSCLE PAIN 01/04/21 22:45 Al Hydroxide/Mg Hydroxide (Mylanta Plus Xs) 15 ml PRN AFTMEALHC PRN PO DYSPEPSIA 01/04/21 22:45 Magnesium Hydroxide (Milk Of Magnesia) 2,400 mg PRN QHS PRN PO CONSTIPATION 01/04/21 22:45 Potassium Chloride (Klor-Con) 40 meq 1X ONCE PO 01/05/21 15:45 01/05/21 15:49 DC 01/05/21 17:29 Potassium Chloride (Klor-Con) 20 meq BID PO 01/05/21 21:00 01/31/21 21:10 Sertraline HCl (Zoloft) 25 mg DAILY PO 01/07/21 09:00 01/09/21 18:00 DC 01/09/21 08:24 Sertraline HCl (Zoloft) 50 mg DAILY PO 01/10/21 09:00 01/14/21 11:10 DC 01/14/21 08:11 Melatonin (Melatonin) 3 mg HS PO 01/08/21 21:00 01/31/21 21:10 Trazodone HCl (Desyrel) 50 mg PRN QHS PRN PO INSOMNIA MRX1 01/08/21 17:30 01/21/21 00:31 Risperidone (RisperDAL) 1 mg QHS PO 01/08/21 21:00 01/08/21 19:47 DC Olanzapine (ZyPREXA ZYDIS) 2.5 mg PRN Q2HRS PRN PO PSYCHOSIS 01/08/21 19:45 01/29/21 14:47 Risperidone (RisperDAL) 0.5 mg HS PO 01/08/21 21:00 01/08/21 19:58 DC Risperidone (RisperDAL) 0.25 mg HS PO 01/08/21 20:00 01/08/21 20:01 DC Risperidone (RisperDAL) 0.25 mg HS PO 01/08/21 21:00 01/14/21 11:11 DC 01/13/21 20:11 Lorazepam (Ativan Intensol) 0.25 mg PRN Q6HRS PRN PO ANXIETY / AGITATION 01/09/21 17:15 01/09/21 17:46 DC Lorazepam (Ativan Intensol) 0.25 mg PRN TID PRN PO ANXIETY / AGITATION 01/09/21 17:45 01/19/21 17:50 Trazodone HCl (Desyrel) 50 mg 1445 ONCE PO 01/11/21 14:45 01/11/21 14:54 DC Mirtazapine (Remeron) 7.5 mg QHS PO 01/11/21 21:00 01/18/21 19:49 DC 01/17/21 19:38 Sertraline HCl (Zoloft) 75 mg DAILY PO 01/15/21 09:00 01/19/21 17:19 DC 01/19/21 08:14 Risperidone (RisperDAL) 0.5 mg QHS PO 01/14/21 21:00 01/31/21 21:10 Mirtazapine (Remeron Anum-Tab) 15 mg QHS PO 01/18/21 21:00 01/31/21 21:10 Sertraline HCl (Zoloft) 100 mg DAILY PO 01/20/21 09:00 01/31/21 09:20 Divalproex Sodium (Depakote Sprinkles) 125 mg DAILY PO 01/22/21 09:00 01/31/21 09:20 Divalproex Sodium (Depakote Sprinkles) 125 mg DAILYWSUP PO 01/21/21 17:00 01/31/21 17:32 Risperidone (RisperDAL) 0.5 mg DAILY PO 01/23/21 09:00 01/31/21 09:20 I have reviewed the current psychotropics carefully including drug interactions. Risk benefit ratio favors no change other than as noted in my dictated progress note. 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
[2021-02-01 05:48] VITALS: BP 151/65
[2021-02-01] MEDS: POLYETHYLENE GLYCOL 3350 17 GM PACKET. PO SCH (08:16)
[2021-02-01] MEDS: DIVALPROEX 125 MG CAP.SPRINK PO SCH ×2 (08:17→17:22)
[2021-02-01] MEDS: POTASSIUM CHLORIDE 20 MEQ TABLET.ER. PO SCH ×2 (08:19→21:22)
[2021-02-01] MEDS: SERTRALINE 100 MG TABLET. PO SCH (08:20)
[2021-02-01] MEDS: METOPROLOL TART IMMED RELEASE 50 MG TABLET PO SCH ×2 (08:21→21:22)
[2021-02-01] MEDS: FUROSEMIDE 40 MG TABLET PO SCH (08:21)
[2021-02-01] MEDS: risperiDONE 0.5 MG TABLET. PO SCH ×2 (08:21→21:21)
--- NOTE | 2021-02-01 09:24 | PDOC ---
Exam Note: Devang Note: This note is a late entry for 01/30/2021 covers elements not covered in my initial note. Subjective: The patient was seen individually in the evening of 01/30/2021 with Lam MARIANO, discussed and reviewed the chart. The patient slept 4-1/4 hours previous night. She has been napping during the day. In the morning she is using the wheelchair, later she was using the walker. She takes medications in [place], somewhat delusional, felt one of the nursing staff was her cousin. She is less irritable with other patients even when one of them took her walker. I met with her in the dayroom. Review of Systems: No CV, , pulmonary, eye system symptoms on review. She is hard of hearing. Mental Status Exam: The patient is oriented to herself. She is verbal, interactive, somewhat distractible, anxious. Insight and judgment, recent and remote memory, attention and concentration is poor consistent with her diagnoses. Laboratory Data: Reviewed. Impression: Major neurocognitive disorder Alzheimer vascular with delusion, depression, and behavioral disturbance. Anxiety disorder unspecified. Impulse control disorder unspecified. Plan: Continue current psychotropics from initial note. Make further adjustments as clinically indicated. Assessment: Vital Signs/I&O: Vital Signs Date Time Temp Pulse Resp B/P (MAP) Pulse Ox O2 Delivery O2 Flow Rate FiO2 02/01/21 08:21 60 151/65 02/01/21 05:48 96.9 16 96 01/31/21 16:19 Room Air I & O 01/31/21 01/31/21 02/01/21 15:00 23:00 07:00 Intake Total 360 ml 120 ml Balance 360 ml 120 ml Current Medications: Meds: Current Medications Medications (Trade) Dose Ordered Sig/Marguerite Route PRN Reason Start Time Stop Time Status Last Admin Dose Admin Potassium Chloride (Klor-Con) 40 meq 1X ONCE PO 01/04/21 19:00 01/04/21 19:07 DC 01/04/21 19:16 Acetaminophen (Tylenol) 500 mg PRN Q12HR PRN PO PAIN 01/04/21 23:00 Cancel Atorvastatin Calcium (Lipitor) 10 mg QHS PO 01/05/21 21:00 01/31/21 21:10 Furosemide (Lasix) 40 mg DAILY PO 01/05/21 09:00 02/01/21 08:21 Metoprolol Tartrate (Lopressor) 50 mg BID PO 01/05/21 09:00 02/01/21 08:21 Potassium Chloride (Klor-Con) 20 meq DAILY PO 01/05/21 09:00 01/11/21 15:00 DC 01/11/21 08:57 Polyethylene Glycol (miraLAX) 17 gm DAILY PO 01/05/21 09:00 02/01/21 08:16 Lorazepam (Ativan) 1 mg PRN Q4HRS PRN PO ANXIETY / AGITATION 01/04/21 23:00 01/09/21 10:42 DC 01/07/21 23:07 Lorazepam (Ativan Intensol) 1 mg PRN Q6HRS PRN PO ANXIETY / AGITATION 01/04/21 23:00 01/09/21 17:03 DC Risperidone (RisperDAL) 0.25 mg DAILY PO 01/05/21 09:00 01/22/21 17:34 DC 01/22/21 08:35 Risperidone (RisperDAL) 0.5 mg QHS PO 01/05/21 21:00 01/08/21 17:27 DC 01/07/21 20:28 Melatonin (Melatonin) 6 mg HS PO 01/05/21 21:00 01/08/21 17:27 DC 01/07/21 20:28 Acetaminophen (Tylenol) 650 mg PRN Q6HRS PRN PO MILD PAIN / TEMP > 100.3'F 01/04/21 22:45 01/29/21 14:47 Multi-Ingredient Ointment (Analgesic [place]) 1 abby PRN QID PRN TP MUSCLE PAIN 01/04/21 22:45 Al Hydroxide/Mg Hydroxide (Mylanta Plus Xs) 15 ml PRN AFTMEALHC PRN PO DYSPEPSIA 01/04/21 22:45 Magnesium Hydroxide (Milk Of Magnesia) 2,400 mg PRN QHS PRN PO CONSTIPATION 01/04/21 22:45 Potassium Chloride (Klor-Con) 40 meq 1X ONCE PO 01/05/21 15:45 01/05/21 15:49 DC 01/05/21 17:29 Potassium Chloride (Klor-Con) 20 meq BID PO 01/05/21 21:00 02/01/21 08:19 Sertraline HCl (Zoloft) 25 mg DAILY PO 01/07/21 09:00 01/09/21 18:00 DC 01/09/21 08:24 Sertraline HCl (Zoloft) 50 mg DAILY PO 01/10/21 09:00 01/14/21 11:10 DC 01/14/21 08:11 Melatonin (Melatonin) 3 mg HS PO 01/08/21 21:00 01/31/21 21:10 Trazodone HCl (Desyrel) 50 mg PRN QHS PRN PO INSOMNIA MRX1 01/08/21 17:30 01/21/21 00:31 Risperidone (RisperDAL) 1 mg QHS PO 01/08/21 21:00 01/08/21 19:47 DC Olanzapine (ZyPREXA ZYDIS) 2.5 mg PRN Q2HRS PRN PO PSYCHOSIS 01/08/21 19:45 01/29/21 14:47 Risperidone (RisperDAL) 0.5 mg HS PO 01/08/21 21:00 01/08/21 19:58 DC Risperidone (RisperDAL) 0.25 mg HS PO 01/08/21 20:00 01/08/21 20:01 DC Risperidone (RisperDAL) 0.25 mg HS PO 01/08/21 21:00 01/14/21 11:11 DC 01/13/21 20:11 Lorazepam (Ativan Intensol) 0.25 mg PRN Q6HRS PRN PO ANXIETY / AGITATION 01/09/21 17:15 01/09/21 17:46 DC Lorazepam (Ativan Intensol) 0.25 mg PRN TID PRN PO ANXIETY / AGITATION 01/09/21 17:45 01/19/21 17:50 Trazodone HCl (Desyrel) 50 mg 1445 ONCE PO 01/11/21 14:45 01/11/21 14:54 DC Mirtazapine (Remeron) 7.5 mg QHS PO 01/11/21 21:00 01/18/21 19:49 DC 01/17/21 19:38 Sertraline HCl (Zoloft) 75 mg DAILY PO 01/15/21 09:00 01/19/21 17:19 DC 01/19/21 08:14 Risperidone (RisperDAL) 0.5 mg QHS PO 01/14/21 21:00 01/31/21 21:10 Mirtazapine (Remeron Anum-Tab) 15 mg QHS PO 01/18/21 21:00 01/31/21 21:10 Sertraline HCl (Zoloft) 100 mg DAILY PO 01/20/21 09:00 02/01/21 08:20 Divalproex Sodium (Depakote Sprinkles) 125 mg DAILY PO 01/22/21 09:00 02/01/21 08:17 Divalproex Sodium (Depakote Sprinkles) 125 mg DAILYWSUP PO 01/21/21 17:00 01/31/21 17:32 Risperidone (RisperDAL) 0.5 mg DAILY PO 01/23/21 09:00 02/01/21 08:21 I have reviewed the current psychotropics carefully including drug interactions. Risk benefit ratio favors no change other than as noted in my dictated progress note. 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
--- NOTE | 2021-02-01 09:50 | PDOC ---
Exam Note: Devang Note: This note is a late entry for 01/31/2021 covers elements not covered in my initial note. Subjective: The patient was seen individually in the evening of 01/31/2021 with Jaimee MARIANO, discussed and reviewed the chart. The patient slept 6-3/4 hours previous night. She remains somewhat delusional, confused. She has done well. Previous evening she was talking about her cousin Yohan working in housekeeping and said she had to send a message to her parents. No p.r.n. was used. Review of Systems: No CV, , pulmonary, eye system symptoms on review. She is hard of hearing. Mental Status Exam: The patient is oriented to herself. I met with her in the dayroom. Insight and judgment, recent and remote memory, attention and concentration is poor consistent with her diagnoses. Laboratory Data: Reviewed. Impression: Major neurocognitive disorder Alzheimer vascular with delusion, depression, and behavioral disturbance. Anxiety disorder unspecified. Impulse control disorder unspecified. Plan: Continue current psychotropics from initial note. Make further adjust ments as clinically indicated. Assessment: Vital Signs/I&O: Vital Signs Date Time Temp Pulse Resp B/P (MAP) Pulse Ox O2 Delivery O2 Flow Rate FiO2 02/01/21 08:21 60 151/65 02/01/21 05:48 96.9 16 96 01/31/21 16:19 Room Air I & O 01/31/21 01/31/21 02/01/21 15:00 23:00 07:00 Intake Total 360 ml 120 ml Balance 360 ml 120 ml Current Medications: Meds: Current Medications Medications (Trade) Dose Ordered Sig/Marguerite Route PRN Reason Start Time Stop Time Status Last Admin Dose Admin Potassium Chloride (Klor-Con) 40 meq 1X ONCE PO 01/04/21 19:00 01/04/21 19:07 DC 01/04/21 19:16 Acetaminophen (Tylenol) 500 mg PRN Q12HR PRN PO PAIN 01/04/21 23:00 Cancel Atorvastatin Calcium (Lipitor) 10 mg QHS PO 01/05/21 21:00 01/31/21 21:10 Furosemide (Lasix) 40 mg DAILY PO 01/05/21 09:00 02/01/21 08:21 Metoprolol Tartrate (Lopressor) 50 mg BID PO 01/05/21 09:00 02/01/21 08:21 Potassium Chloride (Klor-Con) 20 meq DAILY PO 01/05/21 09:00 01/11/21 15:00 DC 01/11/21 08:57 Polyethylene Glycol (miraLAX) 17 gm DAILY PO 01/05/21 09:00 02/01/21 08:16 Lorazepam (Ativan) 1 mg PRN Q4HRS PRN PO ANXIETY / AGITATION 01/04/21 23:00 01/09/21 10:42 DC 01/07/21 23:07 Lorazepam (Ativan Intensol) 1 mg PRN Q6HRS PRN PO ANXIETY / AGITATION 01/04/21 23:00 01/09/21 17:03 DC Risperidone (RisperDAL) 0.25 mg DAILY PO 01/05/21 09:00 01/22/21 17:34 DC 01/22/21 08:35 Risperidone (RisperDAL) 0.5 mg QHS PO 01/05/21 21:00 01/08/21 17:27 DC 01/07/21 20:28 Melatonin (Melatonin) 6 mg HS PO 01/05/21 21:00 01/08/21 17:27 DC 01/07/21 20:28 Acetaminophen (Tylenol) 650 mg PRN Q6HRS PRN PO MILD PAIN / TEMP > 100.3'F 01/04/21 22:45 01/29/21 14:47 Multi-Ingredient Ointment (Analgesic [place]) 1 abby PRN QID PRN TP MUSCLE PAIN 01/04/21 22:45 Al Hydroxide/Mg Hydroxide (Mylanta Plus Xs) 15 ml PRN AFTMEALHC PRN PO DYSPEPSIA 01/04/21 22:45 Magnesium Hydroxide (Milk Of Magnesia) 2,400 mg PRN QHS PRN PO CONSTIPATION 01/04/21 22:45 Potassium Chloride (Klor-Con) 40 meq 1X ONCE PO 01/05/21 15:45 01/05/21 15:49 DC 01/05/21 17:29 Potassium Chloride (Klor-Con) 20 meq BID PO 01/05/21 21:00 02/01/21 08:19 Sertraline HCl (Zoloft) 25 mg DAILY PO 01/07/21 09:00 01/09/21 18:00 DC 01/09/21 08:24 Sertraline HCl (Zoloft) 50 mg DAILY PO 01/10/21 09:00 01/14/21 11:10 DC 01/14/21 08:11 Melatonin (Melatonin) 3 mg HS PO 01/08/21 21:00 01/31/21 21:10 Trazodone HCl (Desyrel) 50 mg PRN QHS PRN PO INSOMNIA MRX1 01/08/21 17:30 01/21/21 00:31 Risperidone (RisperDAL) 1 mg QHS PO 01/08/21 21:00 01/08/21 19:47 DC Olanzapine (ZyPREXA ZYDIS) 2.5 mg PRN Q2HRS PRN PO PSYCHOSIS 01/08/21 19:45 01/29/21 14:47 Risperidone (RisperDAL) 0.5 mg HS PO 01/08/21 21:00 01/08/21 19:58 DC Risperidone (RisperDAL) 0.25 mg HS PO 01/08/21 20:00 01/08/21 20:01 DC Risperidone (RisperDAL) 0.25 mg HS PO 01/08/21 21:00 01/14/21 11:11 DC 01/13/21 20:11 Lorazepam (Ativan Intensol) 0.25 mg PRN Q6HRS PRN PO ANXIETY / AGITATION 01/09/21 17:15 01/09/21 17:46 DC Lorazepam (Ativan Intensol) 0.25 mg PRN TID PRN PO ANXIETY / AGITATION 01/09/21 17:45 01/19/21 17:50 Trazodone HCl (Desyrel) 50 mg 1445 ONCE PO 01/11/21 14:45 01/11/21 14:54 DC Mirtazapine (Remeron) 7.5 mg QHS PO 01/11/21 21:00 01/18/21 19:49 DC 01/17/21 19:38 Sertraline HCl (Zoloft) 75 mg DAILY PO 01/15/21 09:00 01/19/21 17:19 DC 01/19/21 08:14 Risperidone (RisperDAL) 0.5 mg QHS PO 01/14/21 21:00 01/31/21 21:10 Mirtazapine (Remeron Anum-Tab) 15 mg QHS PO 01/18/21 21:00 01/31/21 21:10 Sertraline HCl (Zoloft) 100 mg DAILY PO 01/20/21 09:00 02/01/21 08:20 Divalproex Sodium (Depakote Sprinkles) 125 mg DAILY PO 01/22/21 09:00 02/01/21 08:17 Divalproex Sodium (Depakote Sprinkles) 125 mg DAILYWSUP PO 01/21/21 17:00 01/31/21 17:32 Risperidone (RisperDAL) 0.5 mg DAILY PO 01/23/21 09:00 02/01/21 08:21 I have reviewed the current psychotropics carefully including drug interactions. Risk benefit ratio favors no change other than as noted in my dictated progress note. 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
[2021-02-01 16:20] VITALS: BP 152/61
[2021-02-01] MEDS: MIRTAZAPINE ODT 15 MG TAB.RAPDIS. PO SCH (21:21)
[2021-02-01] MEDS: MELATONIN 3 MG TABLET PO SCH (21:22)
[2021-02-01] MEDS: ATORVASTATIN CALCIUM 10 MG TABLET. PO SCH (21:22)
--- NOTE | 2021-02-01 22:19 | PDOC ---
Exam Note: Devang Note: Please also refer to the separate dictated note~for this date of service dictated separately.~Patient seen individually. Discussed the patient with Nursing staff reviewed the chart.~Reviewed interim history and current functioning. Reviewed vital signs,~Labs/ Radiology~and current medications noted below. Continue current treatment with the changes noted in the dictated addendum note Assessment: Vital Signs/I&O: Vital Signs Date Time Temp Pulse Resp B/P (MAP) Pulse Ox O2 Delivery O2 Flow Rate FiO2 02/01/21 21:22 73 152/61 02/01/21 16:20 97.9 18 96 01/31/21 16:19 Room Air I & O 01/31/21 01/31/21 02/01/21 15:00 23:00 07:00 Intake Total 360 ml 120 ml Balance 360 ml 120 ml Current Medications: Meds: Current Medications Medications (Trade) Dose Ordered Sig/Marguerite Route PRN Reason Start Time Stop Time Status Last Admin Dose Admin Potassium Chloride (Klor-Con) 40 meq 1X ONCE PO 01/04/21 19:00 01/04/21 19:07 DC 01/04/21 19:16 Acetaminophen (Tylenol) 500 mg PRN Q12HR PRN PO PAIN 01/04/21 23:00 Cancel Atorvastatin Calcium (Lipitor) 10 mg QHS PO 01/05/21 21:00 02/01/21 21:22 Furosemide (Lasix) 40 mg DAILY PO 01/05/21 09:00 02/01/21 08:21 Metoprolol Tartrate (Lopressor) 50 mg BID PO 01/05/21 09:00 02/01/21 21:22 Potassium Chloride (Klor-Con) 20 meq DAILY PO 01/05/21 09:00 01/11/21 15:00 DC 01/11/21 08:57 Polyethylene Glycol (miraLAX) 17 gm DAILY PO 01/05/21 09:00 02/01/21 08:16 Lorazepam (Ativan) 1 mg PRN Q4HRS PRN PO ANXIETY / AGITATION 01/04/21 23:00 01/09/21 10:42 DC 01/07/21 23:07 Lorazepam (Ativan Intensol) 1 mg PRN Q6HRS PRN PO ANXIETY / AGITATION 01/04/21 23:00 01/09/21 17:03 DC Risperidone (RisperDAL) 0.25 mg DAILY PO 01/05/21 09:00 01/22/21 17:34 DC 01/22/21 08:35 Risperidone (RisperDAL) 0.5 mg QHS PO 01/05/21 21:00 01/08/21 17:27 DC 01/07/21 20:28 Melatonin (Melatonin) 6 mg HS PO 01/05/21 21:00 01/08/21 17:27 DC 01/07/21 20:28 Acetaminophen (Tylenol) 650 mg PRN Q6HRS PRN PO MILD PAIN / TEMP > 100.3'F 01/04/21 22:45 01/29/21 14:47 Multi-Ingredient Ointment (Analgesic [place]) 1 abby PRN QID PRN TP MUSCLE PAIN 01/04/21 22:45 Al Hydroxide/Mg Hydroxide (Mylanta Plus Xs) 15 ml PRN AFTMEALHC PRN PO DYSPEPSIA 01/04/21 22:45 Magnesium Hydroxide (Milk Of Magnesia) 2,400 mg PRN QHS PRN PO CONSTIPATION 01/04/21 22:45 Potassium Chloride (Klor-Con) 40 meq 1X ONCE PO 01/05/21 15:45 01/05/21 15:49 DC 01/05/21 17:29 Potassium Chloride (Klor-Con) 20 meq BID PO 01/05/21 21:00 02/01/21 21:22 Sertraline HCl (Zoloft) 25 mg DAILY PO 01/07/21 09:00 01/09/21 18:00 DC 01/09/21 08:24 Sertraline HCl (Zoloft) 50 mg DAILY PO 01/10/21 09:00 01/14/21 11:10 DC 01/14/21 08:11 Melatonin (Melatonin) 3 mg HS PO 01/08/21 21:00 02/01/21 21:22 Trazodone HCl (Desyrel) 50 mg PRN QHS PRN PO INSOMNIA MRX1 01/08/21 17:30 01/21/21 00:31 Risperidone (RisperDAL) 1 mg QHS PO 01/08/21 21:00 01/08/21 19:47 DC Olanzapine (ZyPREXA ZYDIS) 2.5 mg PRN Q2HRS PRN PO PSYCHOSIS 01/08/21 19:45 01/29/21 14:47 Risperidone (RisperDAL) 0.5 mg HS PO 01/08/21 21:00 01/08/21 19:58 DC Risperidone (RisperDAL) 0.25 mg HS PO 01/08/21 20:00 01/08/21 20:01 DC Risperidone (RisperDAL) 0.25 mg HS PO 01/08/21 21:00 01/14/21 11:11 DC 01/13/21 20:11 Lorazepam (Ativan Intensol) 0.25 mg PRN Q6HRS PRN PO ANXIETY / AGITATION 01/09/21 17:15 01/09/21 17:46 DC Lorazepam (Ativan Intensol) 0.25 mg PRN TID PRN PO ANXIETY / AGITATION 01/09/21 17:45 01/19/21 17:50 Trazodone HCl (Desyrel) 50 mg 1445 ONCE PO 01/11/21 14:45 01/11/21 14:54 DC Mirtazapine (Remeron) 7.5 mg QHS PO 01/11/21 21:00 01/18/21 19:49 DC 01/17/21 19:38 Sertraline HCl (Zoloft) 75 mg DAILY PO 01/15/21 09:00 01/19/21 17:19 DC 01/19/21 08:14 Risperidone (RisperDAL) 0.5 mg QHS PO 01/14/21 21:00 02/01/21 21:21 Mirtazapine (Remeron Anum-Tab) 15 mg QHS PO 01/18/21 21:00 02/01/21 21:21 Sertraline HCl (Zoloft) 100 mg DAILY PO 01/20/21 09:00 02/01/21 08:20 Divalproex Sodium (Depakote Sprinkles) 125 mg DAILY PO 01/22/21 09:00 02/01/21 08:17 Divalproex Sodium (Depakote Sprinkles) 125 mg DAILYWSUP PO 01/21/21 17:00 02/01/21 17:22 Risperidone (RisperDAL) 0.5 mg DAILY PO 01/23/21 09:00 02/01/21 08:21 I have reviewed the current psychotropics carefully including drug interactions. Risk benefit ratio favors no change other than as noted in my dictated progress note. 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
[2021-02-02 05:52] VITALS: BP 148/81
[2021-02-02] MEDS: POLYETHYLENE GLYCOL 3350 17 GM PACKET. PO SCH (08:40)
[2021-02-02] MEDS: FUROSEMIDE 40 MG TABLET PO SCH (08:40)
[2021-02-02] MEDS: POTASSIUM CHLORIDE 20 MEQ TABLET.ER. PO SCH ×2 (08:41→20:33)
[2021-02-02] MEDS: SERTRALINE 100 MG TABLET. PO SCH (08:42)
[2021-02-02] MEDS: risperiDONE 0.5 MG TABLET. PO SCH ×2 (08:43→20:33)
[2021-02-02] MEDS: DIVALPROEX 125 MG CAP.SPRINK PO SCH ×2 (08:43→17:29)
[2021-02-02] MEDS: METOPROLOL TART IMMED RELEASE 50 MG TABLET PO SCH ×2 (08:43→20:32)
[2021-02-02 15:42] VITALS: BP 111/63
[2021-02-02] MEDS: MIRTAZAPINE ODT 15 MG TAB.RAPDIS. PO SCH (20:31)
[2021-02-02] MEDS: MELATONIN 3 MG TABLET PO SCH (20:32)
[2021-02-02] MEDS: ATORVASTATIN CALCIUM 10 MG TABLET. PO SCH (20:32)
[2021-02-02 20:52] VITALS: BP 126/67
--- NOTE | 2021-02-02 22:03 | PDOC ---
Exam Note: Devang Note: Please also refer to the separate dictated note~for this date of service dictated separately.~Patient seen individually. Discussed the patient with Nursing staff reviewed the chart.~Reviewed interim history and current functioning. Reviewed vital signs,~Labs/ Radiology~and current medications noted below. Continue current treatment with the changes noted in the dictated addendum note Assessment: Vital Signs/I&O: Vital Signs Date Time Temp Pulse Resp B/P (MAP) Pulse Ox O2 Delivery O2 Flow Rate FiO2 02/02/21 20:52 103 126/67 (86) 02/02/21 15:42 97.4 18 94 01/31/21 16:19 Room Air I & O 02/01/21 02/01/21 02/02/21 14:59 22:59 06:59 Intake Total 600 ml 360 ml Balance 600 ml 360 ml Current Medications: Meds: Current Medications Medications (Trade) Dose Ordered Sig/Marguerite Route PRN Reason Start Time Stop Time Status Last Admin Dose Admin Potassium Chloride (Klor-Con) 40 meq 1X ONCE PO 01/04/21 19:00 01/04/21 19:07 DC 01/04/21 19:16 Acetaminophen (Tylenol) 500 mg PRN Q12HR PRN PO PAIN 01/04/21 23:00 Cancel Atorvastatin Calcium (Lipitor) 10 mg QHS PO 01/05/21 21:00 02/02/21 20:32 Furosemide (Lasix) 40 mg DAILY PO 01/05/21 09:00 02/02/21 08:40 Metoprolol Tartrate (Lopressor) 50 mg BID PO 01/05/21 09:00 02/02/21 20:32 Potassium Chloride (Klor-Con) 20 meq DAILY PO 01/05/21 09:00 01/11/21 15:00 DC 01/11/21 08:57 Polyethylene Glycol (miraLAX) 17 gm DAILY PO 01/05/21 09:00 02/02/21 08:40 Lorazepam (Ativan) 1 mg PRN Q4HRS PRN PO ANXIETY / AGITATION 01/04/21 23:00 01/09/21 10:42 DC 01/07/21 23:07 Lorazepam (Ativan Intensol) 1 mg PRN Q6HRS PRN PO ANXIETY / AGITATION 01/04/21 23:00 01/09/21 17:03 DC Risperidone (RisperDAL) 0.25 mg DAILY PO 01/05/21 09:00 01/22/21 17:34 DC 01/22/21 08:35 Risperidone (RisperDAL) 0.5 mg QHS PO 01/05/21 21:00 01/08/21 17:27 DC 01/07/21 20:28 Melatonin (Melatonin) 6 mg HS PO 01/05/21 21:00 01/08/21 17:27 DC 01/07/21 20:28 Acetaminophen (Tylenol) 650 mg PRN Q6HRS PRN PO MILD PAIN / TEMP > 100.3'F 01/04/21 22:45 01/29/21 14:47 Multi-Ingredient Ointment (Analgesic [place]) 1 abby PRN QID PRN TP MUSCLE PAIN 01/04/21 22:45 Al Hydroxide/Mg Hydroxide (Mylanta Plus Xs) 15 ml PRN AFTMEALHC PRN PO DYSPEPSIA 01/04/21 22:45 Magnesium Hydroxide (Milk Of Magnesia) 2,400 mg PRN QHS PRN PO CONSTIPATION 01/04/21 22:45 Potassium Chloride (Klor-Con) 40 meq 1X ONCE PO 01/05/21 15:45 01/05/21 15:49 DC 01/05/21 17:29 Potassium Chloride (Klor-Con) 20 meq BID PO 01/05/21 21:00 02/02/21 20:33 Sertraline HCl (Zoloft) 25 mg DAILY PO 01/07/21 09:00 01/09/21 18:00 DC 01/09/21 08:24 Sertraline HCl (Zoloft) 50 mg DAILY PO 01/10/21 09:00 01/14/21 11:10 DC 01/14/21 08:11 Melatonin (Melatonin) 3 mg HS PO 01/08/21 21:00 02/02/21 20:32 Trazodone HCl (Desyrel) 50 mg PRN QHS PRN PO INSOMNIA MRX1 01/08/21 17:30 01/21/21 00:31 Risperidone (RisperDAL) 1 mg QHS PO 01/08/21 21:00 01/08/21 19:47 DC Olanzapine (ZyPREXA ZYDIS) 2.5 mg PRN Q2HRS PRN PO PSYCHOSIS 01/08/21 19:45 01/29/21 14:47 Risperidone (RisperDAL) 0.5 mg HS PO 01/08/21 21:00 01/08/21 19:58 DC Risperidone (RisperDAL) 0.25 mg HS PO 01/08/21 20:00 01/08/21 20:01 DC Risperidone (RisperDAL) 0.25 mg HS PO 01/08/21 21:00 01/14/21 11:11 DC 01/13/21 20:11 Lorazepam (Ativan Intensol) 0.25 mg PRN Q6HRS PRN PO ANXIETY / AGITATION 01/09/21 17:15 01/09/21 17:46 DC Lorazepam (Ativan Intensol) 0.25 mg PRN TID PRN PO ANXIETY / AGITATION 01/09/21 17:45 01/19/21 17:50 Trazodone HCl (Desyrel) 50 mg 1445 ONCE PO 01/11/21 14:45 01/11/21 14:54 DC Mirtazapine (Remeron) 7.5 mg QHS PO 01/11/21 21:00 01/18/21 19:49 DC 01/17/21 19:38 Sertraline HCl (Zoloft) 75 mg DAILY PO 01/15/21 09:00 01/19/21 17:19 DC 01/19/21 08:14 Risperidone (RisperDAL) 0.5 mg QHS PO 01/14/21 21:00 02/02/21 20:33 Mirtazapine (Remeron Anum-Tab) 15 mg QHS PO 01/18/21 21:00 02/02/21 20:31 Sertraline HCl (Zoloft) 100 mg DAILY PO 01/20/21 09:00 02/02/21 08:42 Divalproex Sodium (Depakote Sprinkles) 125 mg DAILY PO 01/22/21 09:00 02/02/21 08:43 Divalproex Sodium (Depakote Sprinkles) 125 mg DAILYWSUP PO 01/21/21 17:00 02/02/21 17:29 Risperidone (RisperDAL) 0.5 mg DAILY PO 01/23/21 09:00 02/02/21 08:43 I have reviewed the current psychotropics carefully including drug interactions. Risk benefit ratio favors no change other than as noted in my dictated progress note. 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
[2021-02-03 06:13] VITALS: BP 158/77
[2021-02-03] MEDS: POLYETHYLENE GLYCOL 3350 17 GM PACKET. PO SCH (08:26)
[2021-02-03] MEDS: risperiDONE 0.5 MG TABLET. PO SCH ×2 (08:27→20:16)
[2021-02-03] MEDS: FUROSEMIDE 40 MG TABLET PO SCH (08:27)
[2021-02-03] MEDS: DIVALPROEX 125 MG CAP.SPRINK PO SCH ×2 (08:28→17:36)
[2021-02-03] MEDS: SERTRALINE 100 MG TABLET. PO SCH (08:28)
[2021-02-03] MEDS: POTASSIUM CHLORIDE 20 MEQ TABLET.ER. PO SCH ×2 (08:28→20:17)
[2021-02-03] MEDS: METOPROLOL TART IMMED RELEASE 50 MG TABLET PO SCH ×2 (08:28→20:18)
--- NOTE | 2021-02-03 08:40 | PDOC ---
Exam Note: Devang Note: This note is a late entry for 02/01/2021 covers elements not covered in my initial note. Subjective: The patient was seen individually in the evening of 02/01/2021 with Jaimee MARIANO, discussed and reviewed the chart. The patient slept 4-1/2 hours previous night. She is overall doing better. She slept in the chair in the hallway. No overt delusions. Review of Systems: No CV, , pulmonary, eye system symptoms on review. She is hard of hearing. Mental Status Exam: The patient is oriented to herself. She again recognized me as a doctor. She was verbal, animated, less paranoid as I questioned her. Insight and judgment, recent and remote memory, attention and concentration is poor consistent with her diagnoses. Laboratory Data: Reviewed. Impression: Major neurocognitive disorder Alzheimer vascular with delusion, depression, and behavioral disturbance. Anxiety disorder unspecified. Impulse control disorder unspecified. Plan: Continue current psychotropics from initial note. Make further adjustments as clinically indicated. Assessment: Vital Signs/I&O: Vital Signs Date Time Temp Pulse Resp B/P (MAP) Pulse Ox O2 Delivery O2 Flow Rate FiO2 02/03/21 08:28 60 158/77 02/03/21 06:13 97.5 16 95 01/31/21 16:19 Room Air I & O 02/02/21 02/02/21 02/03/21 15:00 23:00 07:00 Intake Total 840 ml 360 ml Balance 840 ml 360 ml Current Medications: Meds: Current Medications Medications (Trade) Dose Ordered Sig/Marguerite Route PRN Reason Start Time Stop Time Status Last Admin Dose Admin Potassium Chloride (Klor-Con) 40 meq 1X ONCE PO 01/04/21 19:00 01/04/21 19:07 DC 01/04/21 19:16 Acetaminophen (Tylenol) 500 mg PRN Q12HR PRN PO PAIN 01/04/21 23:00 Cancel Atorvastatin Calcium (Lipitor) 10 mg QHS PO 01/05/21 21:00 02/02/21 20:32 Furosemide (Lasix) 40 mg DAILY PO 01/05/21 09:00 02/03/21 08:27 Metoprolol Tartrate (Lopressor) 50 mg BID PO 01/05/21 09:00 02/03/21 08:28 Potassium Chloride (Klor-Con) 20 meq DAILY PO 01/05/21 09:00 01/11/21 15:00 DC 01/11/21 08:57 Polyethylene Glycol (miraLAX) 17 gm DAILY PO 01/05/21 09:00 02/03/21 08:26 Lorazepam (Ativan) 1 mg PRN Q4HRS PRN PO ANXIETY / AGITATION 01/04/21 23:00 01/09/21 10:42 DC 01/07/21 23:07 Lorazepam (Ativan Intensol) 1 mg PRN Q6HRS PRN PO ANXIETY / AGITATION 01/04/21 23:00 01/09/21 17:03 DC Risperidone (RisperDAL) 0.25 mg DAILY PO 01/05/21 09:00 01/22/21 17:34 DC 01/22/21 08:35 Risperidone (RisperDAL) 0.5 mg QHS PO 01/05/21 21:00 01/08/21 17:27 DC 01/07/21 20:28 Melatonin (Melatonin) 6 mg HS PO 01/05/21 21:00 01/08/21 17:27 DC 01/07/21 20:28 Acetaminophen (Tylenol) 650 mg PRN Q6HRS PRN PO MILD PAIN / TEMP > 100.3'F 01/04/21 22:45 01/29/21 14:47 Multi-Ingredient Ointment (Analgesic [place]) 1 abby PRN QID PRN TP MUSCLE PAIN 01/04/21 22:45 Al Hydroxide/Mg Hydroxide (Mylanta Plus Xs) 15 ml PRN AFTMEALHC PRN PO DYSPEPSIA 01/04/21 22:45 Magnesium Hydroxide (Milk Of Magnesia) 2,400 mg PRN QHS PRN PO CONSTIPATION 01/04/21 22:45 Potassium Chloride (Klor-Con) 40 meq 1X ONCE PO 01/05/21 15:45 01/05/21 15:49 DC 01/05/21 17:29 Potassium Chloride (Klor-Con) 20 meq BID PO 01/05/21 21:00 02/03/21 08:28 Sertraline HCl (Zoloft) 25 mg DAILY PO 01/07/21 09:00 01/09/21 18:00 DC 01/09/21 08:24 Sertraline HCl (Zoloft) 50 mg DAILY PO 01/10/21 09:00 01/14/21 11:10 DC 01/14/21 08:11 Melatonin (Melatonin) 3 mg HS PO 01/08/21 21:00 02/02/21 20:32 Trazodone HCl (Desyrel) 50 mg PRN QHS PRN PO INSOMNIA MRX1 01/08/21 17:30 01/21/21 00:31 Risperidone (RisperDAL) 1 mg QHS PO 01/08/21 21:00 01/08/21 19:47 DC Olanzapine (ZyPREXA ZYDIS) 2.5 mg PRN Q2HRS PRN PO PSYCHOSIS 01/08/21 19:45 01/29/21 14:47 Risperidone (RisperDAL) 0.5 mg HS PO 01/08/21 21:00 01/08/21 19:58 DC Risperidone (RisperDAL) 0.25 mg HS PO 01/08/21 20:00 01/08/21 20:01 DC Risperidone (RisperDAL) 0.25 mg HS PO 01/08/21 21:00 01/14/21 11:11 DC 01/13/21 20:11 Lorazepam (Ativan Intensol) 0.25 mg PRN Q6HRS PRN PO ANXIETY / AGITATION 01/09/21 17:15 01/09/21 17:46 DC Lorazepam (Ativan Intensol) 0.25 mg PRN TID PRN PO ANXIETY / AGITATION 01/09/21 17:45 01/19/21 17:50 Trazodone HCl (Desyrel) 50 mg 1445 ONCE PO 01/11/21 14:45 01/11/21 14:54 DC Mirtazapine (Remeron) 7.5 mg QHS PO 01/11/21 21:00 01/18/21 19:49 DC 01/17/21 19:38 Sertraline HCl (Zoloft) 75 mg DAILY PO 01/15/21 09:00 01/19/21 17:19 DC 01/19/21 08:14 Risperidone (RisperDAL) 0.5 mg QHS PO 01/14/21 21:00 02/02/21 20:33 Mirtazapine (Remeron Anum-Tab) 15 mg QHS PO 01/18/21 21:00 02/02/21 20:31 Sertraline HCl (Zoloft) 100 mg DAILY PO 01/20/21 09:00 02/03/21 08:28 Divalproex Sodium (Depakote Sprinkles) 125 mg DAILY PO 01/22/21 09:00 02/03/21 08:28 Divalproex Sodium (Depakote Sprinkles) 125 mg DAILYWSUP PO 01/21/21 17:00 02/02/21 17:29 Risperidone (RisperDAL) 0.5 mg DAILY PO 01/23/21 09:00 02/03/21 08:27 I have reviewed the current psychotropics carefully including drug interactions. Risk benefit ratio favors no change other than as noted in my dictated progress note. 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
--- NOTE | 2021-02-03 09:02 | PDOC ---
Exam Note: Devang Note: This note is a late entry for 02/02/2021 covers elements not covered in my initial note. Subjective: The patient was seen individually in the evening of 02/02/2021 with Jaimee MARIANO, discussed and reviewed the chart. The patient slept 6-1/2 hours previous night. Overall she remains confused, had a good day, compliant with medications, less paranoid. Review of Systems: No CV, , pulmonary, eye system symptoms on review. She is hard of hearing. Mental Status Exam: The patient is oriented to herself. Insight and judgment, recent and remote memory, attention and concentration is poor consistent with her diagnoses. Laboratory Data: Reviewed. Impression: Major neurocognitive disorder Alzheimer vascular with delusion, depression, and behavioral disturbance. Anxiety disorder unspecified. Impulse control disorder unspecified. Plan: Continue current psychotropics from initial note. Make further adjustments as clinically indicated. Assessment: Vital Signs/I&O: Vital Signs Date Time Temp Pulse Resp B/P (MAP) Pulse Ox O2 Delivery O2 Flow Rate FiO2 02/03/21 08:28 60 158/77 02/03/21 06:13 97.5 16 95 01/31/21 16:19 Room Air I & O 02/02/21 02/02/21 02/03/21 14:59 22:59 06:59 Intake Total 840 ml 240 ml 120 ml Balance 840 ml 240 ml 120 ml Current Medications: Meds: Current Medications Medications (Trade) Dose Ordered Sig/Marguerite Route PRN Reason Start Time Stop Time Status Last Admin Dose Admin Potassium Chloride (Klor-Con) 40 meq 1X ONCE PO 01/04/21 19:00 01/04/21 19:07 DC 01/04/21 19:16 Acetaminophen (Tylenol) 500 mg PRN Q12HR PRN PO PAIN 01/04/21 23:00 Cancel Atorvastatin Calcium (Lipitor) 10 mg QHS PO 01/05/21 21:00 02/02/21 20:32 Furosemide (Lasix) 40 mg DAILY PO 01/05/21 09:00 02/03/21 08:27 Metoprolol Tartrate (Lopressor) 50 mg BID PO 01/05/21 09:00 02/03/21 08:28 Potassium Chloride (Klor-Con) 20 meq DAILY PO 01/05/21 09:00 01/11/21 15:00 DC 01/11/21 08:57 Polyethylene Glycol (miraLAX) 17 gm DAILY PO 01/05/21 09:00 02/03/21 08:26 Lorazepam (Ativan) 1 mg PRN Q4HRS PRN PO ANXIETY / AGITATION 01/04/21 23:00 01/09/21 10:42 DC 01/07/21 23:07 Lorazepam (Ativan Intensol) 1 mg PRN Q6HRS PRN PO ANXIETY / AGITATION 01/04/21 23:00 01/09/21 17:03 DC Risperidone (RisperDAL) 0.25 mg DAILY PO 01/05/21 09:00 01/22/21 17:34 DC 01/22/21 08:35 Risperidone (RisperDAL) 0.5 mg QHS PO 01/05/21 21:00 01/08/21 17:27 DC 01/07/21 20:28 Melatonin (Melatonin) 6 mg HS PO 01/05/21 21:00 01/08/21 17:27 DC 01/07/21 20:28 Acetaminophen (Tylenol) 650 mg PRN Q6HRS PRN PO MILD PAIN / TEMP > 100.3'F 01/04/21 22:45 01/29/21 14:47 Multi-Ingredient Ointment (Analgesic [place]) 1 abby PRN QID PRN TP MUSCLE PAIN 01/04/21 22:45 Al Hydroxide/Mg Hydroxide (Mylanta Plus Xs) 15 ml PRN AFTMEALHC PRN PO DYSPEPSIA 01/04/21 22:45 Magnesium Hydroxide (Milk Of Magnesia) 2,400 mg PRN QHS PRN PO CONSTIPATION 01/04/21 22:45 Potassium Chloride (Klor-Con) 40 meq 1X ONCE PO 01/05/21 15:45 01/05/21 15:49 DC 01/05/21 17:29 Potassium Chloride (Klor-Con) 20 meq BID PO 01/05/21 21:00 02/03/21 08:28 Sertraline HCl (Zoloft) 25 mg DAILY PO 01/07/21 09:00 01/09/21 18:00 DC 01/09/21 08:24 Sertraline HCl (Zoloft) 50 mg DAILY PO 01/10/21 09:00 01/14/21 11:10 DC 01/14/21 08:11 Melatonin (Melatonin) 3 mg HS PO 01/08/21 21:00 02/02/21 20:32 Trazodone HCl (Desyrel) 50 mg PRN QHS PRN PO INSOMNIA MRX1 01/08/21 17:30 01/21/21 00:31 Risperidone (RisperDAL) 1 mg QHS PO 01/08/21 21:00 01/08/21 19:47 DC Olanzapine (ZyPREXA ZYDIS) 2.5 mg PRN Q2HRS PRN PO PSYCHOSIS 01/08/21 19:45 01/29/21 14:47 Risperidone (RisperDAL) 0.5 mg HS PO 01/08/21 21:00 01/08/21 19:58 DC Risperidone (RisperDAL) 0.25 mg HS PO 01/08/21 20:00 01/08/21 20:01 DC Risperidone (RisperDAL) 0.25 mg HS PO 01/08/21 21:00 01/14/21 11:11 DC 01/13/21 20:11 Lorazepam (Ativan Intensol) 0.25 mg PRN Q6HRS PRN PO ANXIETY / AGITATION 01/09/21 17:15 01/09/21 17:46 DC Lorazepam (Ativan Intensol) 0.25 mg PRN TID PRN PO ANXIETY / AGITATION 01/09/21 17:45 01/19/21 17:50 Trazodone HCl (Desyrel) 50 mg 1445 ONCE PO 01/11/21 14:45 01/11/21 14:54 DC Mirtazapine (Remeron) 7.5 mg QHS PO 01/11/21 21:00 01/18/21 19:49 DC 01/17/21 19:38 Sertraline HCl (Zoloft) 75 mg DAILY PO 01/15/21 09:00 01/19/21 17:19 DC 01/19/21 08:14 Risperidone (RisperDAL) 0.5 mg QHS PO 01/14/21 21:00 02/02/21 20:33 Mirtazapine (Remeron Anum-Tab) 15 mg QHS PO 01/18/21 21:00 02/02/21 20:31 Sertraline HCl (Zoloft) 100 mg DAILY PO 01/20/21 09:00 02/03/21 08:28 Divalproex Sodium (Depakote Sprinkles) 125 mg DAILY PO 01/22/21 09:00 02/03/21 08:28 Divalproex Sodium (Depakote Sprinkles) 125 mg DAILYWSUP PO 01/21/21 17:00 02/02/21 17:29 Risperidone (RisperDAL) 0.5 mg DAILY PO 01/23/21 09:00 02/03/21 08:27 I have reviewed the current psychotropics carefully including drug interactions. Risk benefit ratio favors no change other than as noted in my dictated progress note. 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
[2021-02-03 15:53] VITALS: BP 115/60
[2021-02-03] MEDS: MIRTAZAPINE ODT 15 MG TAB.RAPDIS. PO SCH (20:16)
[2021-02-03] MEDS: MELATONIN 3 MG TABLET PO SCH (20:16)
[2021-02-03] MEDS: ATORVASTATIN CALCIUM 10 MG TABLET. PO SCH (20:16)
--- NOTE | 2021-02-03 22:31 | PDOC ---
Exam Note: Devang Note: Please also refer to the separate dictated note~for this date of service dictated separately.~Patient seen individually. Discussed the patient with Nursing staff reviewed the chart.~Reviewed interim history and current functioning. Reviewed vital signs,~Labs/ Radiology~and current medications noted below. Continue current treatment with the changes noted in the dictated addendum note Assessment: Vital Signs/I&O: Vital Signs Date Time Temp Pulse Resp B/P (MAP) Pulse Ox O2 Delivery O2 Flow Rate FiO2 02/03/21 20:18 66 115/60 02/03/21 15:53 98.1 20 94 01/31/21 16:19 Room Air I & O 02/02/21 02/02/21 02/03/21 15:00 23:00 07:00 Intake Total 840 ml 360 ml Balance 840 ml 360 ml Current Medications: Meds: Current Medications Medications (Trade) Dose Ordered Sig/Marguerite Route PRN Reason Start Time Stop Time Status Last Admin Dose Admin Potassium Chloride (Klor-Con) 40 meq 1X ONCE PO 01/04/21 19:00 01/04/21 19:07 DC 01/04/21 19:16 Acetaminophen (Tylenol) 500 mg PRN Q12HR PRN PO PAIN 01/04/21 23:00 Cancel Atorvastatin Calcium (Lipitor) 10 mg QHS PO 01/05/21 21:00 02/03/21 20:16 Furosemide (Lasix) 40 mg DAILY PO 01/05/21 09:00 02/03/21 08:27 Metoprolol Tartrate (Lopressor) 50 mg BID PO 01/05/21 09:00 02/03/21 20:18 Potassium Chloride (Klor-Con) 20 meq DAILY PO 01/05/21 09:00 01/11/21 15:00 DC 01/11/21 08:57 Polyethylene Glycol (miraLAX) 17 gm DAILY PO 01/05/21 09:00 02/03/21 08:26 Lorazepam (Ativan) 1 mg PRN Q4HRS PRN PO ANXIETY / AGITATION 01/04/21 23:00 01/09/21 10:42 DC 01/07/21 23:07 Lorazepam (Ativan Intensol) 1 mg PRN Q6HRS PRN PO ANXIETY / AGITATION 01/04/21 23:00 01/09/21 17:03 DC Risperidone (RisperDAL) 0.25 mg DAILY PO 01/05/21 09:00 01/22/21 17:34 DC 01/22/21 08:35 Risperidone (RisperDAL) 0.5 mg QHS PO 01/05/21 21:00 01/08/21 17:27 DC 01/07/21 20:28 Melatonin (Melatonin) 6 mg HS PO 01/05/21 21:00 01/08/21 17:27 DC 01/07/21 20:28 Acetaminophen (Tylenol) 650 mg PRN Q6HRS PRN PO MILD PAIN / TEMP > 100.3'F 01/04/21 22:45 01/29/21 14:47 Multi-Ingredient Ointment (Analgesic [place]) 1 abby PRN QID PRN TP MUSCLE PAIN 01/04/21 22:45 Al Hydroxide/Mg Hydroxide (Mylanta Plus Xs) 15 ml PRN AFTMEALHC PRN PO DYSPEPSIA 01/04/21 22:45 Magnesium Hydroxide (Milk Of Magnesia) 2,400 mg PRN QHS PRN PO CONSTIPATION 01/04/21 22:45 Potassium Chloride (Klor-Con) 40 meq 1X ONCE PO 01/05/21 15:45 01/05/21 15:49 DC 01/05/21 17:29 Potassium Chloride (Klor-Con) 20 meq BID PO 01/05/21 21:00 02/03/21 20:17 Sertraline HCl (Zoloft) 25 mg DAILY PO 01/07/21 09:00 01/09/21 18:00 DC 01/09/21 08:24 Sertraline HCl (Zoloft) 50 mg DAILY PO 01/10/21 09:00 01/14/21 11:10 DC 01/14/21 08:11 Melatonin (Melatonin) 3 mg HS PO 01/08/21 21:00 02/03/21 20:16 Trazodone HCl (Desyrel) 50 mg PRN QHS PRN PO INSOMNIA MRX1 01/08/21 17:30 01/21/21 00:31 Risperidone (RisperDAL) 1 mg QHS PO 01/08/21 21:00 01/08/21 19:47 DC Olanzapine (ZyPREXA ZYDIS) 2.5 mg PRN Q2HRS PRN PO PSYCHOSIS 01/08/21 19:45 01/29/21 14:47 Risperidone (RisperDAL) 0.5 mg HS PO 01/08/21 21:00 01/08/21 19:58 DC Risperidone (RisperDAL) 0.25 mg HS PO 01/08/21 20:00 01/08/21 20:01 DC Risperidone (RisperDAL) 0.25 mg HS PO 01/08/21 21:00 01/14/21 11:11 DC 01/13/21 20:11 Lorazepam (Ativan Intensol) 0.25 mg PRN Q6HRS PRN PO ANXIETY / AGITATION 01/09/21 17:15 01/09/21 17:46 DC Lorazepam (Ativan Intensol) 0.25 mg PRN TID PRN PO ANXIETY / AGITATION 01/09/21 17:45 01/19/21 17:50 Trazodone HCl (Desyrel) 50 mg 1445 ONCE PO 01/11/21 14:45 01/11/21 14:54 DC Mirtazapine (Remeron) 7.5 mg QHS PO 01/11/21 21:00 01/18/21 19:49 DC 01/17/21 19:38 Sertraline HCl (Zoloft) 75 mg DAILY PO 01/15/21 09:00 01/19/21 17:19 DC 01/19/21 08:14 Risperidone (RisperDAL) 0.5 mg QHS PO 01/14/21 21:00 02/03/21 20:16 Mirtazapine (Remeron Anum-Tab) 15 mg QHS PO 01/18/21 21:00 02/03/21 20:16 Sertraline HCl (Zoloft) 100 mg DAILY PO 01/20/21 09:00 02/03/21 08:28 Divalproex Sodium (Depakote Sprinkles) 125 mg DAILY PO 01/22/21 09:00 02/03/21 08:28 Divalproex Sodium (Depakote Sprinkles) 125 mg DAILYWSUP PO 01/21/21 17:00 02/03/21 17:36 Risperidone (RisperDAL) 0.5 mg DAILY PO 01/23/21 09:00 02/03/21 08:27 I have reviewed the current psychotropics carefully including drug interactions. Risk benefit ratio favors no change other than as noted in my dictated progress note. 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
[2021-02-04 05:56] VITALS: BP 146/75
[2021-02-04] MEDS: SERTRALINE 100 MG TABLET. PO SCH (08:15)
[2021-02-04] MEDS: POLYETHYLENE GLYCOL 3350 17 GM PACKET. PO SCH (08:15)
[2021-02-04] MEDS: risperiDONE 0.5 MG TABLET. PO SCH ×2 (08:16→20:22)
[2021-02-04] MEDS: METOPROLOL TART IMMED RELEASE 50 MG TABLET PO SCH ×2 (08:16→20:23)
[2021-02-04] MEDS: DIVALPROEX 125 MG CAP.SPRINK PO SCH ×2 (08:16→16:49)
[2021-02-04] MEDS: FUROSEMIDE 40 MG TABLET PO SCH (08:16)
[2021-02-04] MEDS: POTASSIUM CHLORIDE 20 MEQ TABLET.ER. PO SCH ×2 (08:17→20:23)
--- NOTE | 2021-02-04 11:21 | TX PLAN ---
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 Reasons for Admission: Aggressive, Agitated, Combative, Confusion/Disoriented, Poor impulse control Problem in Patient's Words: According to the intake, pt is aggressive to staff and peers, resistive and combative at times of care, bit a nurse, agitated, irritable and hostile. Problems Active Problems: agitated resistive impulsive non-compliant with medication Inactive Problems: N/A Pt Strengths/Limitations Ability for [place]: Poor Cognitive Functioning/Ability: Fair Communication Skills/Ability: Fair Financial Resources: Fair Insight/Judgement: Fair Intellectual Ability: Fair Physical Health: Poor Social Skills: Poor Stability in Family: Excellent Stability in School/Work: Poor Verbal Skills: Fair Discharge Criteria Discharge Criteria: No need for close observ., Adequate arrangements @DC, Improved behavior, Improved mood/thought Preliminary Discharge Plan Preliminary DC Plan: Placement Needed Special Precautions Fall Risk: Moderate Initial D/C Plan Pt will need a different level of care upon discharge Identified Discharge Needs: Referrals to placement Currently Utilized Resources Currently Utilized Resources/P: Primary Care Physician Identified Problems/Hx/Goals Objectives/Short-Term Goals Short Term Goals: Dec. Aggression, Dec. Outbursts, Medication Stabilization, Promote Coping Skill Short Term Goals in Patient's: N/A Interventions/Frequency Staff Interventions/Frequency&: Psychiatrist to assess pt at least 3x per week for medication stabilization. Social Work to assess pt at least 2x per week to identify barriers to care and finalize discharge plans. Nursing to assess medication effects, behavior management and complete 15 minute checks daily. Encourage group paricipation in activities (if applicable) or 1:1 engagement based off Activity Dept goals. 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 Education: Graduated 12th grade Community Follow-up Primary Care Physicain Treatment Plan Explained Patient/Management Trainee had this treatment plan explained to him/her as indicated by the signature below and has been given the opportunity to ask questions and make suggestions: Date: Patient/Management Trainee Signature: Status Update Update Pt is eating 60% of meals and sleeping on average 6 hours a night. Pt is mostly calm and compliant with medications crushed or hidden in meals. Pt continues to be delusional with telling staff that they are her cousins and not treating her well. Pt has had some agitation; however, is not combative or having any physical behaviors. Pt today appears to be withdrawn to her room; and has been noted to be getting along with her roommate. Pt has been accepted to [facility] and will discharge on Monday. SW will continue working with pt son on making final discharge arrangements. GALINA THOMSON Feb 04, 2021 11:20
[2021-02-04 16:00] VITALS: BP 101/61
[2021-02-04] MEDS: MELATONIN 3 MG TABLET PO SCH (20:22)
[2021-02-04] MEDS: MIRTAZAPINE ODT 15 MG TAB.RAPDIS. PO SCH (20:23)
[2021-02-04] MEDS: ATORVASTATIN CALCIUM 10 MG TABLET. PO SCH (20:23)
--- NOTE | 2021-02-04 22:09 | PDOC ---
Exam Note: Devang Note: Please also refer to the separate dictated note~for this date of service dictated separately.~Patient seen individually. Discussed the patient with Nursing staff reviewed the chart.~Reviewed interim history and current functioning. Reviewed vital signs,~Labs/ Radiology~and current medications noted below. Continue current treatment with the changes noted in the dictated addendum note Assessment: Vital Signs/I&O: Vital Signs Date Time Temp Pulse Resp B/P (MAP) Pulse Ox O2 Delivery O2 Flow Rate FiO2 02/04/21 20:23 72 101/61 02/04/21 16:00 98.2 18 94 01/31/21 16:19 Room Air I & O 02/03/21 02/03/21 02/04/21 15:00 23:00 07:00 Intake Total 560 ml 360 ml 360 ml Balance 560 ml 360 ml 360 ml Current Medications: Meds: Current Medications Medications (Trade) Dose Ordered Sig/Marguerite Route PRN Reason Start Time Stop Time Status Last Admin Dose Admin Potassium Chloride (Klor-Con) 40 meq 1X ONCE PO 01/04/21 19:00 01/04/21 19:07 DC 01/04/21 19:16 Acetaminophen (Tylenol) 500 mg PRN Q12HR PRN PO PAIN 01/04/21 23:00 Cancel Atorvastatin Calcium (Lipitor) 10 mg QHS PO 01/05/21 21:00 02/04/21 20:23 Furosemide (Lasix) 40 mg DAILY PO 01/05/21 09:00 02/04/21 08:16 Metoprolol Tartrate (Lopressor) 50 mg BID PO 01/05/21 09:00 02/04/21 20:23 Potassium Chloride (Klor-Con) 20 meq DAILY PO 01/05/21 09:00 01/11/21 15:00 DC 01/11/21 08:57 Polyethylene Glycol (miraLAX) 17 gm DAILY PO 01/05/21 09:00 02/04/21 08:15 Lorazepam (Ativan) 1 mg PRN Q4HRS PRN PO ANXIETY / AGITATION 01/04/21 23:00 01/09/21 10:42 DC 01/07/21 23:07 Lorazepam (Ativan Intensol) 1 mg PRN Q6HRS PRN PO ANXIETY / AGITATION 01/04/21 23:00 01/09/21 17:03 DC Risperidone (RisperDAL) 0.25 mg DAILY PO 01/05/21 09:00 01/22/21 17:34 DC 01/22/21 08:35 Risperidone (RisperDAL) 0.5 mg QHS PO 01/05/21 21:00 01/08/21 17:27 DC 01/07/21 20:28 Melatonin (Melatonin) 6 mg HS PO 01/05/21 21:00 01/08/21 17:27 DC 01/07/21 20:28 Acetaminophen (Tylenol) 650 mg PRN Q6HRS PRN PO MILD PAIN / TEMP > 100.3'F 01/04/21 22:45 01/29/21 14:47 Multi-Ingredient Ointment (Analgesic [place]) 1 abby PRN QID PRN TP MUSCLE PAIN 01/04/21 22:45 Al Hydroxide/Mg Hydroxide (Mylanta Plus Xs) 15 ml PRN AFTMEALHC PRN PO DYSPEPSIA 01/04/21 22:45 Magnesium Hydroxide (Milk Of Magnesia) 2,400 mg PRN QHS PRN PO CONSTIPATION 01/04/21 22:45 Potassium Chloride (Klor-Con) 40 meq 1X ONCE PO 01/05/21 15:45 01/05/21 15:49 DC 01/05/21 17:29 Potassium Chloride (Klor-Con) 20 meq BID PO 01/05/21 21:00 02/04/21 20:23 Sertraline HCl (Zoloft) 25 mg DAILY PO 01/07/21 09:00 01/09/21 18:00 DC 01/09/21 08:24 Sertraline HCl (Zoloft) 50 mg DAILY PO 01/10/21 09:00 01/14/21 11:10 DC 01/14/21 08:11 Melatonin (Melatonin) 3 mg HS PO 01/08/21 21:00 02/04/21 20:22 Trazodone HCl (Desyrel) 50 mg PRN QHS PRN PO INSOMNIA MRX1 01/08/21 17:30 01/21/21 00:31 Risperidone (RisperDAL) 1 mg QHS PO 01/08/21 21:00 01/08/21 19:47 DC Olanzapine (ZyPREXA ZYDIS) 2.5 mg PRN Q2HRS PRN PO PSYCHOSIS 01/08/21 19:45 01/29/21 14:47 Risperidone (RisperDAL) 0.5 mg HS PO 01/08/21 21:00 01/08/21 19:58 DC Risperidone (RisperDAL) 0.25 mg HS PO 01/08/21 20:00 01/08/21 20:01 DC Risperidone (RisperDAL) 0.25 mg HS PO 01/08/21 21:00 01/14/21 11:11 DC 01/13/21 20:11 Lorazepam (Ativan Intensol) 0.25 mg PRN Q6HRS PRN PO ANXIETY / AGITATION 01/09/21 17:15 01/09/21 17:46 DC Lorazepam (Ativan Intensol) 0.25 mg PRN TID PRN PO ANXIETY / AGITATION 01/09/21 17:45 01/19/21 17:50 Trazodone HCl (Desyrel) 50 mg 1445 ONCE PO 01/11/21 14:45 01/11/21 14:54 DC Mirtazapine (Remeron) 7.5 mg QHS PO 01/11/21 21:00 01/18/21 19:49 DC 01/17/21 19:38 Sertraline HCl (Zoloft) 75 mg DAILY PO 01/15/21 09:00 01/19/21 17:19 DC 01/19/21 08:14 Risperidone (RisperDAL) 0.5 mg QHS PO 01/14/21 21:00 02/04/21 20:22 Mirtazapine (Remeron Anum-Tab) 15 mg QHS PO 01/18/21 21:00 02/04/21 20:23 Sertraline HCl (Zoloft) 100 mg DAILY PO 01/20/21 09:00 02/04/21 08:15 Divalproex Sodium (Depakote Sprinkles) 125 mg DAILY PO 01/22/21 09:00 02/04/21 08:16 Divalproex Sodium (Depakote Sprinkles) 125 mg DAILYWSUP PO 01/21/21 17:00 02/04/21 16:49 Risperidone (RisperDAL) 0.5 mg DAILY PO 01/23/21 09:00 02/04/21 08:16 I have reviewed the current psychotropics carefully including drug interactions. Risk benefit ratio favors no change other than as noted in my dictated progress note. 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
[2021-02-05 07:03] VITALS: BP 171/70
[2021-02-05] MEDS: METOPROLOL TART IMMED RELEASE 50 MG TABLET PO SCH ×2 (08:33→21:46)
[2021-02-05] MEDS: POLYETHYLENE GLYCOL 3350 17 GM PACKET. PO SCH (08:34)
[2021-02-05] MEDS: risperiDONE 0.5 MG TABLET. PO SCH ×2 (08:34→21:46)
[2021-02-05] MEDS: SERTRALINE 100 MG TABLET. PO SCH (08:34)
[2021-02-05] MEDS: DIVALPROEX 125 MG CAP.SPRINK PO SCH ×2 (08:34→17:48)
[2021-02-05] MEDS: POTASSIUM CHLORIDE 20 MEQ TABLET.ER. PO SCH ×2 (08:34→21:47)
[2021-02-05] MEDS: FUROSEMIDE 40 MG TABLET PO SCH (08:35)
--- NOTE | 2021-02-05 08:59 | PDOC ---
Exam Note: Devang Note: This note is a late entry for 02/03/2021 covers elements not covered in my initial note. Subjective: The patient was seen individually in the evening of 02/03/2021 with Lam MARIANO, discussed and reviewed the chart. The patient slept 5-3/4 hours previous night. She remains confused. Affect is improved, oriented to herself. She makes statements that various nursing staff members are part of her family. She expressed concern about family abandoning her, compliant with medications, more social, spends much time in dayroom. Review of Systems: No CV, , pulmonary, eye system symptoms on review. She is hard of hearing. Mental Status Exam: The patient is oriented to herself. Insight and judgment, recent and remote memory, attention and concentration is poor consistent with her diagnoses. Laboratory Data: Reviewed. Impression: Major neurocognitive disorder Alzheimer vascular with delusion, depression, and behavioral disturbance. Anxiety disorder unspecified. Impulse control disorder unspecified. Plan: Continue current psychotropics from initial note. Make further adjustments as clinically indicated. Assessment: Vital Signs/I&O: Vital Signs Date Time Temp Pulse Resp B/P (MAP) Pulse Ox O2 Delivery O2 Flow Rate FiO2 02/05/21 08:33 64 171/70 02/05/21 07:03 97.9 16 Room Air 02/04/21 16:00 94 I & O 02/04/21 02/04/21 02/05/21 15:00 23:00 07:00 Intake Total 960 ml 480 ml Balance 960 ml 480 ml Current Medications: Meds: Current Medications Medications (Trade) Dose Ordered Sig/Marguerite Route PRN Reason Start Time Stop Time Status Last Admin Dose Admin Potassium Chloride (Klor-Con) 40 meq 1X ONCE PO 01/04/21 19:00 01/04/21 19:07 DC 01/04/21 19:16 Acetaminophen (Tylenol) 500 mg PRN Q12HR PRN PO PAIN 01/04/21 23:00 Cancel Atorvastatin Calcium (Lipitor) 10 mg QHS PO 01/05/21 21:00 02/04/21 20:23 Furosemide (Lasix) 40 mg DAILY PO 01/05/21 09:00 02/05/21 08:35 Metoprolol Tartrate (Lopressor) 50 mg BID PO 01/05/21 09:00 02/05/21 08:33 Potassium Chloride (Klor-Con) 20 meq DAILY PO 01/05/21 09:00 01/11/21 15:00 DC 01/11/21 08:57 Polyethylene Glycol (miraLAX) 17 gm DAILY PO 01/05/21 09:00 02/05/21 08:34 Lorazepam (Ativan) 1 mg PRN Q4HRS PRN PO ANXIETY / AGITATION 01/04/21 23:00 01/09/21 10:42 DC 01/07/21 23:07 Lorazepam (Ativan Intensol) 1 mg PRN Q6HRS PRN PO ANXIETY / AGITATION 01/04/21 23:00 01/09/21 17:03 DC Risperidone (RisperDAL) 0.25 mg DAILY PO 01/05/21 09:00 01/22/21 17:34 DC 01/22/21 08:35 Risperidone (RisperDAL) 0.5 mg QHS PO 01/05/21 21:00 01/08/21 17:27 DC 01/07/21 20:28 Melatonin (Melatonin) 6 mg HS PO 01/05/21 21:00 01/08/21 17:27 DC 01/07/21 20:28 Acetaminophen (Tylenol) 650 mg PRN Q6HRS PRN PO MILD PAIN / TEMP > 100.3'F 01/04/21 22:45 01/29/21 14:47 Multi-Ingredient Ointment (Analgesic [place]) 1 abby PRN QID PRN TP MUSCLE PAIN 01/04/21 22:45 Al Hydroxide/Mg Hydroxide (Mylanta Plus Xs) 15 ml PRN AFTMEALHC PRN PO DYSPEPSIA 01/04/21 22:45 Magnesium Hydroxide (Milk Of Magnesia) 2,400 mg PRN QHS PRN PO CONSTIPATION 01/04/21 22:45 Potassium Chloride (Klor-Con) 40 meq 1X ONCE PO 01/05/21 15:45 01/05/21 15:49 DC 01/05/21 17:29 Potassium Chloride (Klor-Con) 20 meq BID PO 01/05/21 21:00 02/05/21 08:34 Sertraline HCl (Zoloft) 25 mg DAILY PO 01/07/21 09:00 01/09/21 18:00 DC 01/09/21 08:24 Sertraline HCl (Zoloft) 50 mg DAILY PO 01/10/21 09:00 01/14/21 11:10 DC 01/14/21 08:11 Melatonin (Melatonin) 3 mg HS PO 01/08/21 21:00 02/04/21 20:22 Trazodone HCl (Desyrel) 50 mg PRN QHS PRN PO INSOMNIA MRX1 01/08/21 17:30 01/21/21 00:31 Risperidone (RisperDAL) 1 mg QHS PO 01/08/21 21:00 01/08/21 19:47 DC Olanzapine (ZyPREXA ZYDIS) 2.5 mg PRN Q2HRS PRN PO PSYCHOSIS 01/08/21 19:45 02/05/21 05:51 Risperidone (RisperDAL) 0.5 mg HS PO 01/08/21 21:00 01/08/21 19:58 DC Risperidone (RisperDAL) 0.25 mg HS PO 01/08/21 20:00 01/08/21 20:01 DC Risperidone (RisperDAL) 0.25 mg HS PO 01/08/21 21:00 01/14/21 11:11 DC 01/13/21 20:11 Lorazepam (Ativan Intensol) 0.25 mg PRN Q6HRS PRN PO ANXIETY / AGITATION 01/09/21 17:15 01/09/21 17:46 DC Lorazepam (Ativan Intensol) 0.25 mg PRN TID PRN PO ANXIETY / AGITATION 01/09/21 17:45 01/19/21 17:50 Trazodone HCl (Desyrel) 50 mg 1445 ONCE PO 01/11/21 14:45 01/11/21 14:54 DC Mirtazapine (Remeron) 7.5 mg QHS PO 01/11/21 21:00 01/18/21 19:49 DC 01/17/21 19:38 Sertraline HCl (Zoloft) 75 mg DAILY PO 01/15/21 09:00 01/19/21 17:19 DC 01/19/21 08:14 Risperidone (RisperDAL) 0.5 mg QHS PO 01/14/21 21:00 02/04/21 20:22 Mirtazapine (Remeron Anum-Tab) 15 mg QHS PO 01/18/21 21:00 02/04/21 20:23 Sertraline HCl (Zoloft) 100 mg DAILY PO 01/20/21 09:00 02/05/21 08:34 Divalproex Sodium (Depakote Sprinkles) 125 mg DAILY PO 01/22/21 09:00 02/05/21 08:34 Divalproex Sodium (Depakote Sprinkles) 125 mg DAILYWSUP PO 01/21/21 17:00 02/04/21 16:49 Risperidone (RisperDAL) 0.5 mg DAILY PO 01/23/21 09:00 02/05/21 08:34 I have reviewed the current psychotropics carefully including drug interactions. Risk benefit ratio favors no change other than as noted in my dictated progress note. 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
--- NOTE | 2021-02-05 09:29 | PDOC ---
Exam Note: Devang Note: This note is a late entry for 02/04/2021 covers elements not covered in my initial note. Subjective: The patient was seen individually in the morning of 02/04/2021 for a treatment team meeting with Karli Villegas, Alejandra Pena (administrator social welfare), Judith, activity therapy and Lam MARIANO, discussed and reviewed the chart. The patient slept 5-3/4 hours previous night. She has attended one group in the past week somewhat delusional, not aggressive, somewhat withdrawn. She believes some of the nursing staff are related to her. She was better this morning. Appetite 60%. She has been accepted at [facility]. Review of Systems: No CV, , pulmonary, eye system symptoms on review. She is hard of hearing. Mental Status Exam: The patient is oriented to herself. Insight and judgment, recent and remote memory, attention and concentration is poor consistent with her diagnoses. Laboratory Data: Reviewed. Impression: Major neurocognitive disorder Alzheimer vascular with delusion, depression, and behavioral disturbance. Anxiety disorder unspecified. Impulse control disorder unspecified. Plan: Continue current psychotropics from initial note. Make further adjustm ents as clinically indicated. Assessment: Vital Signs/I&O: Vital Signs Date Time Temp Pulse Resp B/P (MAP) Pulse Ox O2 Delivery O2 Flow Rate FiO2 02/05/21 08:33 64 171/70 02/05/21 07:03 97.9 16 Room Air 02/04/21 16:00 94 I & O 02/04/21 02/04/21 02/05/21 15:00 23:00 07:00 Intake Total 960 ml 480 ml Balance 960 ml 480 ml Current Medications: Meds: Current Medications Medications (Trade) Dose Ordered Sig/Marguerite Route PRN Reason Start Time Stop Time Status Last Admin Dose Admin Potassium Chloride (Klor-Con) 40 meq 1X ONCE PO 01/04/21 19:00 01/04/21 19:07 DC 01/04/21 19:16 Acetaminophen (Tylenol) 500 mg PRN Q12HR PRN PO PAIN 01/04/21 23:00 Cancel Atorvastatin Calcium (Lipitor) 10 mg QHS PO 01/05/21 21:00 02/04/21 20:23 Furosemide (Lasix) 40 mg DAILY PO 01/05/21 09:00 02/05/21 08:35 Metoprolol Tartrate (Lopressor) 50 mg BID PO 01/05/21 09:00 02/05/21 08:33 Potassium Chloride (Klor-Con) 20 meq DAILY PO 01/05/21 09:00 01/11/21 15:00 DC 01/11/21 08:57 Polyethylene Glycol (miraLAX) 17 gm DAILY PO 01/05/21 09:00 02/05/21 08:34 Lorazepam (Ativan) 1 mg PRN Q4HRS PRN PO ANXIETY / AGITATION 01/04/21 23:00 01/09/21 10:42 DC 01/07/21 23:07 Lorazepam (Ativan Intensol) 1 mg PRN Q6HRS PRN PO ANXIETY / AGITATION 01/04/21 23:00 01/09/21 17:03 DC Risperidone (RisperDAL) 0.25 mg DAILY PO 01/05/21 09:00 01/22/21 17:34 DC 01/22/21 08:35 Risperidone (RisperDAL) 0.5 mg QHS PO 01/05/21 21:00 01/08/21 17:27 DC 01/07/21 20:28 Melatonin (Melatonin) 6 mg HS PO 01/05/21 21:00 01/08/21 17:27 DC 01/07/21 20:28 Acetaminophen (Tylenol) 650 mg PRN Q6HRS PRN PO MILD PAIN / TEMP > 100.3'F 01/04/21 22:45 01/29/21 14:47 Multi-Ingredient Ointment (Analgesic [place]) 1 abby PRN QID PRN TP MUSCLE PAIN 01/04/21 22:45 Al Hydroxide/Mg Hydroxide (Mylanta Plus Xs) 15 ml PRN AFTMEALHC PRN PO DYSPEPSIA 01/04/21 22:45 Magnesium Hydroxide (Milk Of Magnesia) 2,400 mg PRN QHS PRN PO CONSTIPATION 01/04/21 22:45 Potassium Chloride (Klor-Con) 40 meq 1X ONCE PO 01/05/21 15:45 01/05/21 15:49 DC 01/05/21 17:29 Potassium Chloride (Klor-Con) 20 meq BID PO 01/05/21 21:00 02/05/21 08:34 Sertraline HCl (Zoloft) 25 mg DAILY PO 01/07/21 09:00 01/09/21 18:00 DC 01/09/21 08:24 Sertraline HCl (Zoloft) 50 mg DAILY PO 01/10/21 09:00 01/14/21 11:10 DC 01/14/21 08:11 Melatonin (Melatonin) 3 mg HS PO 01/08/21 21:00 02/04/21 20:22 Trazodone HCl (Desyrel) 50 mg PRN QHS PRN PO INSOMNIA MRX1 01/08/21 17:30 01/21/21 00:31 Risperidone (RisperDAL) 1 mg QHS PO 01/08/21 21:00 01/08/21 19:47 DC Olanzapine (ZyPREXA ZYDIS) 2.5 mg PRN Q2HRS PRN PO PSYCHOSIS 01/08/21 19:45 02/05/21 05:51 Risperidone (RisperDAL) 0.5 mg HS PO 01/08/21 21:00 01/08/21 19:58 DC Risperidone (RisperDAL) 0.25 mg HS PO 01/08/21 20:00 01/08/21 20:01 DC Risperidone (RisperDAL) 0.25 mg HS PO 01/08/21 21:00 01/14/21 11:11 DC 01/13/21 20:11 Lorazepam (Ativan Intensol) 0.25 mg PRN Q6HRS PRN PO ANXIETY / AGITATION 01/09/21 17:15 01/09/21 17:46 DC Lorazepam (Ativan Intensol) 0.25 mg PRN TID PRN PO ANXIETY / AGITATION 01/09/21 17:45 01/19/21 17:50 Trazodone HCl (Desyrel) 50 mg 1445 ONCE PO 01/11/21 14:45 01/11/21 14:54 DC Mirtazapine (Remeron) 7.5 mg QHS PO 01/11/21 21:00 01/18/21 19:49 DC 01/17/21 19:38 Sertraline HCl (Zoloft) 75 mg DAILY PO 01/15/21 09:00 01/19/21 17:19 DC 01/19/21 08:14 Risperidone (RisperDAL) 0.5 mg QHS PO 01/14/21 21:00 02/04/21 20:22 Mirtazapine (Remeron Anum-Tab) 15 mg QHS PO 01/18/21 21:00 02/04/21 20:23 Sertraline HCl (Zoloft) 100 mg DAILY PO 01/20/21 09:00 02/05/21 08:34 Divalproex Sodium (Depakote Sprinkles) 125 mg DAILY PO 01/22/21 09:00 02/05/21 08:34 Divalproex Sodium (Depakote Sprinkles) 125 mg DAILYWSUP PO 01/21/21 17:00 02/04/21 16:49 Risperidone (RisperDAL) 0.5 mg DAILY PO 01/23/21 09:00 02/05/21 08:34 I have reviewed the current psychotropics carefully including drug interactions. Risk benefit ratio favors no change other than as noted in my dictated progress note. 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
[2021-02-05 16:10] VITALS: BP 164/68
[2021-02-05] MEDS: MELATONIN 3 MG TABLET PO SCH (21:46)
[2021-02-05] MEDS: MIRTAZAPINE ODT 15 MG TAB.RAPDIS. PO SCH (21:46)
[2021-02-05] MEDS: ATORVASTATIN CALCIUM 10 MG TABLET. PO SCH (21:46)
--- NOTE | 2021-02-05 22:16 | PDOC ---
Exam Note: Devang Note: Please also refer to the separate dictated note~for this date of service dictated separately.~Patient seen individually. Discussed the patient with Nursing staff reviewed the chart.~Reviewed interim history and current functioning. Reviewed vital signs,~Labs/ Radiology~and current medications noted below. Continue current treatment with the changes noted in the dictated addendum note Assessment: Vital Signs/I&O: Vital Signs Date Time Temp Pulse Resp B/P (MAP) Pulse Ox O2 Delivery O2 Flow Rate FiO2 02/05/21 21:46 94 164/68 02/05/21 16:10 98.1 20 94 02/05/21 07:03 Room Air I & O 02/04/21 02/04/21 02/05/21 15:00 23:00 07:00 Intake Total 960 ml 480 ml Balance 960 ml 480 ml Current Medications: Meds: Current Medications Medications (Trade) Dose Ordered Sig/Marguerite Route PRN Reason Start Time Stop Time Status Last Admin Dose Admin Potassium Chloride (Klor-Con) 40 meq 1X ONCE PO 01/04/21 19:00 01/04/21 19:07 DC 01/04/21 19:16 Acetaminophen (Tylenol) 500 mg PRN Q12HR PRN PO PAIN 01/04/21 23:00 Cancel Atorvastatin Calcium (Lipitor) 10 mg QHS PO 01/05/21 21:00 02/05/21 21:46 Furosemide (Lasix) 40 mg DAILY PO 01/05/21 09:00 02/05/21 08:35 Metoprolol Tartrate (Lopressor) 50 mg BID PO 01/05/21 09:00 02/05/21 21:46 Potassium Chloride (Klor-Con) 20 meq DAILY PO 01/05/21 09:00 01/11/21 15:00 DC 01/11/21 08:57 Polyethylene Glycol (miraLAX) 17 gm DAILY PO 01/05/21 09:00 02/05/21 08:34 Lorazepam (Ativan) 1 mg PRN Q4HRS PRN PO ANXIETY / AGITATION 01/04/21 23:00 01/09/21 10:42 DC 01/07/21 23:07 Lorazepam (Ativan Intensol) 1 mg PRN Q6HRS PRN PO ANXIETY / AGITATION 01/04/21 23:00 01/09/21 17:03 DC Risperidone (RisperDAL) 0.25 mg DAILY PO 01/05/21 09:00 01/22/21 17:34 DC 01/22/21 08:35 Risperidone (RisperDAL) 0.5 mg QHS PO 01/05/21 21:00 01/08/21 17:27 DC 01/07/21 20:28 Melatonin (Melatonin) 6 mg HS PO 01/05/21 21:00 01/08/21 17:27 DC 01/07/21 20:28 Acetaminophen (Tylenol) 650 mg PRN Q6HRS PRN PO MILD PAIN / TEMP > 100.3'F 01/04/21 22:45 01/29/21 14:47 Multi-Ingredient Ointment (Analgesic [place]) 1 abby PRN QID PRN TP MUSCLE PAIN 01/04/21 22:45 Al Hydroxide/Mg Hydroxide (Mylanta Plus Xs) 15 ml PRN AFTMEALHC PRN PO DYSPEPSIA 01/04/21 22:45 Magnesium Hydroxide (Milk Of Magnesia) 2,400 mg PRN QHS PRN PO CONSTIPATION 01/04/21 22:45 Potassium Chloride (Klor-Con) 40 meq 1X ONCE PO 01/05/21 15:45 01/05/21 15:49 DC 01/05/21 17:29 Potassium Chloride (Klor-Con) 20 meq BID PO 01/05/21 21:00 02/05/21 21:47 Sertraline HCl (Zoloft) 25 mg DAILY PO 01/07/21 09:00 01/09/21 18:00 DC 01/09/21 08:24 Sertraline HCl (Zoloft) 50 mg DAILY PO 01/10/21 09:00 01/14/21 11:10 DC 01/14/21 08:11 Melatonin (Melatonin) 3 mg HS PO 01/08/21 21:00 02/05/21 21:46 Trazodone HCl (Desyrel) 50 mg PRN QHS PRN PO INSOMNIA MRX1 01/08/21 17:30 01/21/21 00:31 Risperidone (RisperDAL) 1 mg QHS PO 01/08/21 21:00 01/08/21 19:47 DC Olanzapine (ZyPREXA ZYDIS) 2.5 mg PRN Q2HRS PRN PO PSYCHOSIS 01/08/21 19:45 02/05/21 05:51 Risperidone (RisperDAL) 0.5 mg HS PO 01/08/21 21:00 01/08/21 19:58 DC Risperidone (RisperDAL) 0.25 mg HS PO 01/08/21 20:00 01/08/21 20:01 DC Risperidone (RisperDAL) 0.25 mg HS PO 01/08/21 21:00 01/14/21 11:11 DC 01/13/21 20:11 Lorazepam (Ativan Intensol) 0.25 mg PRN Q6HRS PRN PO ANXIETY / AGITATION 01/09/21 17:15 01/09/21 17:46 DC Lorazepam (Ativan Intensol) 0.25 mg PRN TID PRN PO ANXIETY / AGITATION 01/09/21 17:45 01/19/21 17:50 Trazodone HCl (Desyrel) 50 mg 1445 ONCE PO 01/11/21 14:45 01/11/21 14:54 DC Mirtazapine (Remeron) 7.5 mg QHS PO 01/11/21 21:00 01/18/21 19:49 DC 01/17/21 19:38 Sertraline HCl (Zoloft) 75 mg DAILY PO 01/15/21 09:00 01/19/21 17:19 DC 01/19/21 08:14 Risperidone (RisperDAL) 0.5 mg QHS PO 01/14/21 21:00 02/05/21 21:46 Mirtazapine (Remeron Anum-Tab) 15 mg QHS PO 01/18/21 21:00 02/05/21 21:46 Sertraline HCl (Zoloft) 100 mg DAILY PO 01/20/21 09:00 02/05/21 08:34 Divalproex Sodium (Depakote Sprinkles) 125 mg DAILY PO 01/22/21 09:00 02/05/21 08:34 Divalproex Sodium (Depakote Sprinkles) 125 mg DAILYWSUP PO 01/21/21 17:00 02/05/21 17:48 Risperidone (RisperDAL) 0.5 mg DAILY PO 01/23/21 09:00 02/05/21 08:34 I have reviewed the current psychotropics carefully including drug interactions. Risk benefit ratio favors no change other than as noted in my dictated progress note. 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
[2021-02-06] MEDS: traZODone 50 MG TABLET. PO PRN ×2 (02:08→20:44)
[2021-02-06 05:55] VITALS: BP 148/73
[2021-02-06] MEDS: SERTRALINE 100 MG TABLET. PO SCH (08:24)
[2021-02-06] MEDS: FUROSEMIDE 40 MG TABLET PO SCH (08:24)
[2021-02-06] MEDS: METOPROLOL TART IMMED RELEASE 50 MG TABLET PO SCH ×2 (08:24→20:43)
[2021-02-06] MEDS: risperiDONE 0.5 MG TABLET. PO SCH ×2 (08:25→20:44)
[2021-02-06] MEDS: DIVALPROEX 125 MG CAP.SPRINK PO SCH ×2 (08:25→16:58)
[2021-02-06] MEDS: POLYETHYLENE GLYCOL 3350 17 GM PACKET. PO SCH (08:25)
[2021-02-06] MEDS: POTASSIUM CHLORIDE 20 MEQ TABLET.ER. PO SCH ×2 (08:25→20:44)
[2021-02-06 10:07] LABS: BASO % 1 % (0-3); EOS # 0.2 x10^3/uL (0.0-0.7); EOS % 6 % (0-3); HEMATOCRIT 32.9 % (36.0-47.0); HEMOGLOBIN 10.8 g/dL (12.0-15.5); LYMPH # 0.9 x10^3/uL (1.0-4.8); LYMPH % 22 % (24-48); MEAN CORPUSCULAR HEMOGLOBIN 33 pg (25-35); MEAN CORPUSCULAR HGB CONC 33 g/dL (31-37); MEAN CORPUSCULAR VOLUME 100 fL (79-100); MONO # 0.3 x10^3/uL (0.0-1.1); MONO % 8 % (0-9); NEUT # 2.6 x10^3uL (1.8-7.7); NEUT % 64 % (31-73); PLATELET COUNT 205 x10^3/uL (140-400); RED CELL DISTRIBUTION WIDTH 15.2 % (11.5-14.5); WHITE BLOOD COUNT 4.1 x10^3/uL (4.0-11.0)
[2021-02-06 10:11] LABS: ALBUMIN 3.4 g/dL (3.4-5.0); ALBUMIN/GLOBULIN RATIO 0.9 (1.0-1.7); CALCIUM 8.8 mg/dL (8.5-10.1); GFR 52.6; POTASSIUM 3.8 mmol/L (3.5-5.1); TOTAL BILIRUBIN 0.4 mg/dL (0.2-1.0)
[2021-02-06 16:00] VITALS: BP 120/65
[2021-02-06] MEDS: MIRTAZAPINE ODT 15 MG TAB.RAPDIS. PO SCH (20:43)
[2021-02-06] MEDS: MELATONIN 3 MG TABLET PO SCH (20:44)
[2021-02-06] MEDS: ATORVASTATIN CALCIUM 10 MG TABLET. PO SCH (20:44)
--- NOTE | 2021-02-06 22:08 | PDOC ---
Exam Note: Devang Note: Please also refer to the separate dictated note~for this date of service dictated separately.~Patient seen individually. Discussed the patient with Nursing staff reviewed the chart.~Reviewed interim history and current functioning. Reviewed vital signs,~Labs/ Radiology~and current medications noted below. Continue current treatment with the changes noted in the dictated addendum note Assessment: Vital Signs/I&O: Vital Signs Date Time Temp Pulse Resp B/P (MAP) Pulse Ox O2 Delivery O2 Flow Rate FiO2 02/06/21 20:43 67 120/65 02/06/21 16:00 98.3 16 93 02/05/21 07:03 Room Air I & O 02/05/21 02/05/21 02/06/21 15:00 23:00 07:00 Intake Total 600 ml 600 ml Balance 600 ml 600 ml Labs: Laboratory Tests Test 02/06/21 08:30 White Blood Count 4.1 x10^3/uL (4.0-11.0) Red Blood Count 3.30 x10^6/uL (3.50-5.40) L Hemoglobin 10.8 g/dL (12.0-15.5) L Hematocrit 32.9 % (36.0-47.0) L Mean Corpuscular Volume 100 fL (79-100) Mean Corpuscular Hemoglobin 33 pg (25-35) Mean Corpuscular Hemoglobin Concent 33 g/dL (31-37) Red Cell Distribution Width 15.2 % (11.5-14.5) H Platelet Count 205 x10^3/uL (140-400) Neutrophils (%) (Auto) 64 % (31-73) Lymphocytes (%) (Auto) 22 % (24-48) L Monocytes (%) (Auto) 8 % (0-9) Eosinophils (%) (Auto) 6 % (0-3) H Basophils (%) (Auto) 1 % (0-3) Neutrophils # (Auto) 2.6 x10^3uL (1.8-7.7) Lymphocytes # (Auto) 0.9 x10^3/uL (1.0-4.8) L Monocytes # (Auto) 0.3 x10^3/uL (0.0-1.1) Eosinophils # (Auto) 0.2 x10^3/uL (0.0-0.7) Basophils # (Auto) 0.0 x10^3/uL (0.0-0.2) Sodium Level 141 mmol/L (136-145) Potassium Level 3.8 mmol/L (3.5-5.1) Chloride Level 105 mmol/L (98-107) Carbon Dioxide Level 28 mmol/L (21-32) Anion Gap 8 (6-14) Blood Urea Nitrogen 31 mg/dL (7-20) H Creatinine 1.0 mg/dL (0.6-1.0) Estimated GFR (Cockcroft-Gault) 52.6 BUN/Creatinine Ratio 31 (6-20) H Glucose Level 137 mg/dL (70-99) H Calcium Level 8.8 mg/dL (8.5-10.1) Total Bilirubin 0.4 mg/dL (0.2-1.0) Aspartate Amino Transferase (AST) 19 U/L (15-37) Alanine Aminotransferase (ALT) 24 U/L (14-59) Alkaline Phosphatase 63 U/L (46-116) Total Protein 7.0 g/dL (6.4-8.2) Albumin 3.4 g/dL (3.4-5.0) Albumin/Globulin Ratio 0.9 (1.0-1.7) L Current Medications: Meds: Laboratory Tests Test 02/06/21 08:30 White Blood Count 4.1 x10^3/uL Red Blood Count 3.30 x10^6/uL Hemoglobin 10.8 g/dL Hematocrit 32.9 % Mean Corpuscular Volume 100 fL Mean Corpuscular Hemoglobin 33 pg Mean Corpuscular Hemoglobin Concent 33 g/dL Red Cell Distribution Width 15.2 % Platelet Count 205 x10^3/uL Neutrophils (%) (Auto) 64 % Lymphocytes (%) (Auto) 22 % Monocytes (%) (Auto) 8 % Eosinophils (%) (Auto) 6 % Basophils (%) (Auto) 1 % Neutrophils # (Auto) 2.6 x10^3uL Lymphocytes # (Auto) 0.9 x10^3/uL Monocytes # (Auto) 0.3 x10^3/uL Eosinophils # (Auto) 0.2 x10^3/uL Basophils # (Auto) 0.0 x10^3/uL Sodium Level 141 mmol/L Potassium Level 3.8 mmol/L Chloride Level 105 mmol/L Carbon Dioxide Level 28 mmol/L Anion Gap 8 Blood Urea Nitrogen 31 mg/dL Creatinine 1.0 mg/dL Estimated GFR (Cockcroft-Gault) 52.6 BUN/Creatinine Ratio 31 Glucose Level 137 mg/dL Calcium Level 8.8 mg/dL Total Bilirubin 0.4 mg/dL Aspartate Amino Transf (AST/SGOT) 19 U/L Alanine Aminotransferase (ALT/SGPT) 24 U/L Alkaline Phosphatase 63 U/L Total Protein 7.0 g/dL Albumin 3.4 g/dL Albumin/Globulin Ratio 0.9 Current Medications Medications (Trade) Dose Ordered Sig/Marguerite Route PRN Reason Start Time Stop Time Status Last Admin Dose Admin Potassium Chloride (Klor-Con) 40 meq 1X ONCE PO 01/04/21 19:00 01/04/21 19:07 DC 01/04/21 19:16 Acetaminophen (Tylenol) 500 mg PRN Q12HR PRN PO PAIN 01/04/21 23:00 Cancel Atorvastatin Calcium (Lipitor) 10 mg QHS PO 01/05/21 21:00 02/06/21 20:44 Furosemide (Lasix) 40 mg DAILY PO 01/05/21 09:00 02/06/21 08:24 Metoprolol Tartrate (Lopressor) 50 mg BID PO 01/05/21 09:00 02/06/21 20:43 Potassium Chloride (Klor-Con) 20 meq DAILY PO 01/05/21 09:00 01/11/21 15:00 DC 01/11/21 08:57 Polyethylene Glycol (miraLAX) 17 gm DAILY PO 01/05/21 09:00 02/06/21 08:25 Lorazepam (Ativan) 1 mg PRN Q4HRS PRN PO ANXIETY / AGITATION 01/04/21 23:00 01/09/21 10:42 DC 01/07/21 23:07 Lorazepam (Ativan Intensol) 1 mg PRN Q6HRS PRN PO ANXIETY / AGITATION 01/04/21 23:00 01/09/21 17:03 DC Risperidone (RisperDAL) 0.25 mg DAILY PO 01/05/21 09:00 01/22/21 17:34 DC 01/22/21 08:35 Risperidone (RisperDAL) 0.5 mg QHS PO 01/05/21 21:00 01/08/21 17:27 DC 01/07/21 20:28 Melatonin (Melatonin) 6 mg HS PO 01/05/21 21:00 01/08/21 17:27 DC 01/07/21 20:28 Acetaminophen (Tylenol) 650 mg PRN Q6HRS PRN PO MILD PAIN / TEMP > 100.3'F 01/04/21 22:45 01/29/21 14:47 Multi-Ingredient Ointment (Analgesic [place]) 1 abby PRN QID PRN TP MUSCLE PAIN 01/04/21 22:45 Al Hydroxide/Mg Hydroxide (Mylanta Plus Xs) 15 ml PRN AFTMEALHC PRN PO DYSPEPSIA 01/04/21 22:45 Magnesium Hydroxide (Milk Of Magnesia) 2,400 mg PRN QHS PRN PO CONSTIPATION 01/04/21 22:45 Potassium Chloride (Klor-Con) 40 meq 1X ONCE PO 01/05/21 15:45 01/05/21 15:49 DC 01/05/21 17:29 Potassium Chloride (Klor-Con) 20 meq BID PO 01/05/21 21:00 02/06/21 20:44 Sertraline HCl (Zoloft) 25 mg DAILY PO 01/07/21 09:00 01/09/21 18:00 DC 01/09/21 08:24 Sertraline HCl (Zoloft) 50 mg DAILY PO 01/10/21 09:00 01/14/21 11:10 DC 01/14/21 08:11 Melatonin (Melatonin) 3 mg HS PO 01/08/21 21:00 02/06/21 20:44 Trazodone HCl (Desyrel) 50 mg PRN QHS PRN PO INSOMNIA MRX1 01/08/21 17:30 02/06/21 20:44 Risperidone (RisperDAL) 1 mg QHS PO 01/08/21 21:00 01/08/21 19:47 DC Olanzapine (ZyPREXA ZYDIS) 2.5 mg PRN Q2HRS PRN PO PSYCHOSIS 01/08/21 19:45 02/06/21 02:08 Risperidone (RisperDAL) 0.5 mg HS PO 01/08/21 21:00 01/08/21 19:58 DC Risperidone (RisperDAL) 0.25 mg HS PO 01/08/21 20:00 01/08/21 20:01 DC Risperidone (RisperDAL) 0.25 mg HS PO 01/08/21 21:00 01/14/21 11:11 DC 01/13/21 20:11 Lorazepam (Ativan Intensol) 0.25 mg PRN Q6HRS PRN PO ANXIETY / AGITATION 01/09/21 17:15 01/09/21 17:46 DC Lorazepam (Ativan Intensol) 0.25 mg PRN TID PRN PO ANXIETY / AGITATION 01/09/21 17:45 01/19/21 17:50 Trazodone HCl (Desyrel) 50 mg 1445 ONCE PO 01/11/21 14:45 01/11/21 14:54 DC Mirtazapine (Remeron) 7.5 mg QHS PO 01/11/21 21:00 01/18/21 19:49 DC 01/17/21 19:38 Sertraline HCl (Zoloft) 75 mg DAILY PO 01/15/21 09:00 01/19/21 17:19 DC 01/19/21 08:14 Risperidone (RisperDAL) 0.5 mg QHS PO 01/14/21 21:00 02/06/21 20:44 Mirtazapine (Remeron Anum-Tab) 15 mg QHS PO 01/18/21 21:00 02/06/21 20:43 Sertraline HCl (Zoloft) 100 mg DAILY PO 01/20/21 09:00 02/06/21 08:24 Divalproex Sodium (Depakote Sprinkles) 125 mg DAILY PO 01/22/21 09:00 02/06/21 08:25 Divalproex Sodium (Depakote Sprinkles) 125 mg DAILYWSUP PO 01/21/21 17:00 02/06/21 16:58 Risperidone (RisperDAL) 0.5 mg DAILY PO 01/23/21 09:00 02/06/21 08:25 I have reviewed the current psychotropics carefully including drug interactions. Risk benefit ratio favors no change other than as noted in my dictated progress note. 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
[2021-02-07] MEDS: POTASSIUM CHLORIDE 20 MEQ TABLET.ER. PO SCH ×2 (04:18→20:17)
[2021-02-07] MEDS: risperiDONE 0.5 MG TABLET. PO SCH ×2 (04:18→20:17)
[2021-02-07] MEDS: SERTRALINE 100 MG TABLET. PO SCH (04:19)
[2021-02-07] MEDS: METOPROLOL TART IMMED RELEASE 50 MG TABLET PO SCH ×2 (04:19→20:16)
[2021-02-07] MEDS: DIVALPROEX 125 MG CAP.SPRINK PO SCH ×2 (04:19→17:13)
[2021-02-07] MEDS: POLYETHYLENE GLYCOL 3350 17 GM PACKET. PO SCH (04:19)
[2021-02-07] MEDS: FUROSEMIDE 40 MG TABLET PO SCH (04:20)
[2021-02-07 06:31] VITALS: BP 124/53
--- NOTE | 2021-02-07 08:21 | PDOC ---
Exam Note: Devang Note: This note is a late entry for 02/05/2021 covers elements not covered in my initial note. Subjective: The patient was reviewed on telehealth rounds on 02/05/2021 due to the COVID-19 pandemic. There have been 3 patients on the unit that have turned up positive today, 02/05 and they are being transitioned to the [facility] floor per Dr. Vergara. There have also been 2 staff members that have turned up positive for COVID-19 and all the patients are going to be tested weekly for the COVID-19 along with every staff member going forward. I had not had the opportunity to be tested myself and will await completing this before considering [id number] rounds on the unit. Discussed with Lam MARIANO and reviewed the chart. The patient slept 4-3/4 hours previous night. She has been confused, somewhat delusional but redirectable. She received Zyprexa at 6 p.m. Review of Systems: No CV, , pulmonary, eye system symptoms on review. She is hard of hearing. Mental Status Exam: The patient is oriented to herself. Insight and judgment, recent and remote memory, attention and concentration is poor consistent with her diagnoses. Laboratory Data: Reviewed. Impression: Major neurocognitive disorder Alzheimer vascular with delusion, depression, and behavioral disturbance. Anxiety disorder unspecified. Impulse control disorder unspecified. Plan: Continue current psychotropics from initial note. Assessment: Vital Signs/I&O: Vital Signs Date Time Temp Pulse Resp B/P (MAP) Pulse Ox O2 Delivery O2 Flow Rate FiO2 02/07/21 06:31 98.4 67 18 124/53 (76) 92 02/05/21 07:03 Room Air I & O 02/06/21 02/06/21 02/07/21 14:59 22:59 06:59 Intake Total 480 ml 600 ml Balance 480 ml 600 ml Labs: Laboratory Tests Test 02/06/21 08:30 White Blood Count 4.1 x10^3/uL (4.0-11.0) Red Blood Count 3.30 x10^6/uL (3.50-5.40) L Hemoglobin 10.8 g/dL (12.0-15.5) L Hematocrit 32.9 % (36.0-47.0) L Mean Corpuscular Volume 100 fL (79-100) Mean Corpuscular Hemoglobin 33 pg (25-35) Mean Corpuscular Hemoglobin Concent 33 g/dL (31-37) Red Cell Distribution Width 15.2 % (11.5-14.5) H Platelet Count 205 x10^3/uL (140-400) Neutrophils (%) (Auto) 64 % (31-73) Lymphocytes (%) (Auto) 22 % (24-48) L Monocytes (%) (Auto) 8 % (0-9) Eosinophils (%) (Auto) 6 % (0-3) H Basophils (%) (Auto) 1 % (0-3) Neutrophils # (Auto) 2.6 x10^3uL (1.8-7.7) Lymphocytes # (Auto) 0.9 x10^3/uL (1.0-4.8) L Monocytes # (Auto) 0.3 x10^3/uL (0.0-1.1) Eosinophils # (Auto) 0.2 x10^3/uL (0.0-0.7) Basophils # (Auto) 0.0 x10^3/uL (0.0-0.2) Sodium Level 141 mmol/L (136-145) Potassium Level 3.8 mmol/L (3.5-5.1) Chloride Level 105 mmol/L (98-107) Carbon Dioxide Level 28 mmol/L (21-32) Anion Gap 8 (6-14) Blood Urea Nitrogen 31 mg/dL (7-20) H Creatinine 1.0 mg/dL (0.6-1.0) Estimated GFR (Cockcroft-Gault) 52.6 BUN/Creatinine Ratio 31 (6-20) H Glucose Level 137 mg/dL (70-99) H Calcium Level 8.8 mg/dL (8.5-10.1) Total Bilirubin 0.4 mg/dL (0.2-1.0) Aspartate Amino Transferase (AST) 19 U/L (15-37) Alanine Aminotransferase (ALT) 24 U/L (14-59) Alkaline Phosphatase 63 U/L (46-116) Total Protein 7.0 g/dL (6.4-8.2) Albumin 3.4 g/dL (3.4-5.0) Albumin/Globulin Ratio 0.9 (1.0-1.7) L Current Medications: Meds: Laboratory Tests Test 02/06/21 08:30 White Blood Count 4.1 x10^3/uL Red Blood Count 3.30 x10^6/uL Hemoglobin 10.8 g/dL Hematocrit 32.9 % Mean Corpuscular Volume 100 fL Mean Corpuscular Hemoglobin 33 pg Mean Corpuscular Hemoglobin Concent 33 g/dL Red Cell Distribution Width 15.2 % Platelet Count 205 x10^3/uL Neutrophils (%) (Auto) 64 % Lymphocytes (%) (Auto) 22 % Monocytes (%) (Auto) 8 % Eosinophils (%) (Auto) 6 % Basophils (%) (Auto) 1 % Neutrophils # (Auto) 2.6 x10^3uL Lymphocytes # (Auto) 0.9 x10^3/uL Monocytes # (Auto) 0.3 x10^3/uL Eosinophils # (Auto) 0.2 x10^3/uL Basophils # (Auto) 0.0 x10^3/uL Sodium Level 141 mmol/L Potassium Level 3.8 mmol/L Chloride Level 105 mmol/L Carbon Dioxide Level 28 mmol/L Anion Gap 8 Blood Urea Nitrogen 31 mg/dL Creatinine 1.0 mg/dL Estimated GFR (Cockcroft-Gault) 52.6 BUN/Creatinine Ratio 31 Glucose Level 137 mg/dL Calcium Level 8.8 mg/dL Total Bilirubin 0.4 mg/dL Aspartate Amino Transf (AST/SGOT) 19 U/L Alanine Aminotransferase (ALT/SGPT) 24 U/L Alkaline Phosphatase 63 U/L Total Protein 7.0 g/dL Albumin 3.4 g/dL Albumin/Globulin Ratio 0.9 Current Medications Medications (Trade) Dose Ordered Sig/Marguerite Route PRN Reason Start Time Stop Time Status Last Admin Dose Admin Potassium Chloride (Klor-Con) 40 meq 1X ONCE PO 01/04/21 19:00 01/04/21 19:07 DC 01/04/21 19:16 Acetaminophen (Tylenol) 500 mg PRN Q12HR PRN PO PAIN 01/04/21 23:00 Cancel Atorvastatin Calcium (Lipitor) 10 mg QHS PO 01/05/21 21:00 02/06/21 20:44 Furosemide (Lasix) 40 mg DAILY PO 01/05/21 09:00 02/07/21 04:20 Metoprolol Tartrate (Lopressor) 50 mg BID PO 01/05/21 09:00 02/07/21 04:19 Potassium Chloride (Klor-Con) 20 meq DAILY PO 01/05/21 09:00 01/11/21 15:00 DC 01/11/21 08:57 Polyethylene Glycol (miraLAX) 17 gm DAILY PO 01/05/21 09:00 02/07/21 04:19 Lorazepam (Ativan) 1 mg PRN Q4HRS PRN PO ANXIETY / AGITATION 01/04/21 23:00 01/09/21 10:42 DC 01/07/21 23:07 Lorazepam (Ativan Intensol) 1 mg PRN Q6HRS PRN PO ANXIETY / AGITATION 01/04/21 23:00 01/09/21 17:03 DC Risperidone (RisperDAL) 0.25 mg DAILY PO 01/05/21 09:00 01/22/21 17:34 DC 01/22/21 08:35 Risperidone (RisperDAL) 0.5 mg QHS PO 01/05/21 21:00 01/08/21 17:27 DC 01/07/21 20:28 Melatonin (Melatonin) 6 mg HS PO 01/05/21 21:00 01/08/21 17:27 DC 01/07/21 20:28 Acetaminophen (Tylenol) 650 mg PRN Q6HRS PRN PO MILD PAIN / TEMP > 100.3'F 01/04/21 22:45 01/29/21 14:47 Multi-Ingredient Ointment (Analgesic [place]) 1 abby PRN QID PRN TP MUSCLE PAIN 01/04/21 22:45 Al Hydroxide/Mg Hydroxide (Mylanta Plus Xs) 15 ml PRN AFTMEALHC PRN PO DYSPEPSIA 01/04/21 22:45 Magnesium Hydroxide (Milk Of Magnesia) 2,400 mg PRN QHS PRN PO CONSTIPATION 01/04/21 22:45 Potassium Chloride (Klor-Con) 40 meq 1X ONCE PO 01/05/21 15:45 01/05/21 15:49 DC 01/05/21 17:29 Potassium Chloride (Klor-Con) 20 meq BID PO 01/05/21 21:00 02/07/21 04:18 Sertraline HCl (Zoloft) 25 mg DAILY PO 01/07/21 09:00 01/09/21 18:00 DC 01/09/21 08:24 Sertraline HCl (Zoloft) 50 mg DAILY PO 01/10/21 09:00 01/14/21 11:10 DC 01/14/21 08:11 Melatonin (Melatonin) 3 mg HS PO 01/08/21 21:00 02/06/21 20:44 Trazodone HCl (Desyrel) 50 mg PRN QHS PRN PO INSOMNIA MRX1 01/08/21 17:30 02/06/21 20:44 Risperidone (RisperDAL) 1 mg QHS PO 01/08/21 21:00 01/08/21 19:47 DC Olanzapine (ZyPREXA ZYDIS) 2.5 mg PRN Q2HRS PRN PO PSYCHOSIS 01/08/21 19:45 02/07/21 04:19 Risperidone (RisperDAL) 0.5 mg HS PO 01/08/21 21:00 01/08/21 19:58 DC Risperidone (RisperDAL) 0.25 mg HS PO 01/08/21 20:00 01/08/21 20:01 DC Risperidone (RisperDAL) 0.25 mg HS PO 01/08/21 21:00 01/14/21 11:11 DC 01/13/21 20:11 Lorazepam (Ativan Intensol) 0.25 mg PRN Q6HRS PRN PO ANXIETY / AGITATION 01/09/21 17:15 01/09/21 17:46 DC Lorazepam (Ativan Intensol) 0.25 mg PRN TID PRN PO ANXIETY / AGITATION 01/09/21 17:45 01/19/21 17:50 Trazodone HCl (Desyrel) 50 mg 1445 ONCE PO 01/11/21 14:45 01/11/21 14:54 DC Mirtazapine (Remeron) 7.5 mg QHS PO 01/11/21 21:00 01/18/21 19:49 DC 01/17/21 19:38 Sertraline HCl (Zoloft) 75 mg DAILY PO 01/15/21 09:00 01/19/21 17:19 DC 01/19/21 08:14 Risperidone (RisperDAL) 0.5 mg QHS PO 01/14/21 21:00 02/06/21 20:44 Mirtazapine (Remeron Anum-Tab) 15 mg QHS PO 01/18/21 21:00 02/06/21 20:43 Sertraline HCl (Zoloft) 100 mg DAILY PO 01/20/21 09:00 02/07/21 04:19 Divalproex Sodium (Depakote Sprinkles) 125 mg DAILY PO 01/22/21 09:00 02/07/21 04:19 Divalproex Sodium (Depakote Sprinkles) 125 mg DAILYWSUP PO 01/21/21 17:00 02/06/21 16:58 Risperidone (RisperDAL) 0.5 mg DAILY PO 01/23/21 09:00 02/07/21 04:18 I have reviewed the current psychotropics carefully including drug interactions. Risk benefit ratio favors no change other than as noted in my dictated progress note. 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
--- NOTE | 2021-02-07 08:58 | PDOC ---
Exam Note: Devang Note: This note is a late entry for 02/06/2021 covers elements not covered in my initial note. Subjective: The patient was reviewed on telehealth rounds on 02/06/2021 due to the COVID-19 pandemic. Discussed with Lam MARIANO and reviewed the chart. The patient slept 7-1/2 hours previous night. She was somewhat delusional, but otherwise pleasant, up at 2 a.m., wandering, irritable at times. Received Zyprexa and trazodone at night, then slept after that. Review of Systems: No CV, , pulmonary, eye system symptoms on review. She is hard of hearing. Mental Status Exam: The patient is oriented to herself. Insight and judgment, recent and remote memory, attention and concentration is poor consistent with her diagnoses. Laboratory Data: Reviewed. Impression: Major neurocognitive disorder Alzheimer vascular with delusion, depression, and behavioral disturbance. Anxiety disorder unspecified. Impulse control disorder unspecified. Plan: Continue current psychotropics from initial note. Make further adjustments as clinically indicated. Assessment: Vital Signs/I&O: Vital Signs Date Time Temp Pulse Resp B/P (MAP) Pulse Ox O2 Delivery O2 Flow Rate FiO2 02/07/21 06:31 98.4 67 18 124/53 (76) 92 02/05/21 07:03 Room Air I & O 02/06/21 02/06/21 02/07/21 14:59 22:59 06:59 Intake Total 480 ml 600 ml Balance 480 ml 600 ml Current Medications: Meds: Current Medications Medications (Trade) Dose Ordered Sig/Marguerite Route PRN Reason Start Time Stop Time Status Last Admin Dose Admin Potassium Chloride (Klor-Con) 40 meq 1X ONCE PO 01/04/21 19:00 01/04/21 19:07 DC 01/04/21 19:16 Acetaminophen (Tylenol) 500 mg PRN Q12HR PRN PO PAIN 01/04/21 23:00 Cancel Atorvastatin Calcium (Lipitor) 10 mg QHS PO 01/05/21 21:00 02/06/21 20:44 Furosemide (Lasix) 40 mg DAILY PO 01/05/21 09:00 02/07/21 04:20 Metoprolol Tartrate (Lopressor) 50 mg BID PO 01/05/21 09:00 02/07/21 04:19 Potassium Chloride (Klor-Con) 20 meq DAILY PO 01/05/21 09:00 01/11/21 15:00 DC 01/11/21 08:57 Polyethylene Glycol (miraLAX) 17 gm DAILY PO 01/05/21 09:00 02/07/21 04:19 Lorazepam (Ativan) 1 mg PRN Q4HRS PRN PO ANXIETY / AGITATION 01/04/21 23:00 01/09/21 10:42 DC 01/07/21 23:07 Lorazepam (Ativan Intensol) 1 mg PRN Q6HRS PRN PO ANXIETY / AGITATION 01/04/21 23:00 01/09/21 17:03 DC Risperidone (RisperDAL) 0.25 mg DAILY PO 01/05/21 09:00 01/22/21 17:34 DC 01/22/21 08:35 Risperidone (RisperDAL) 0.5 mg QHS PO 01/05/21 21:00 01/08/21 17:27 DC 01/07/21 20:28 Melatonin (Melatonin) 6 mg HS PO 01/05/21 21:00 01/08/21 17:27 DC 01/07/21 20:28 Acetaminophen (Tylenol) 650 mg PRN Q6HRS PRN PO MILD PAIN / TEMP > 100.3'F 01/04/21 22:45 01/29/21 14:47 Multi-Ingredient Ointment (Analgesic [place]) 1 abby PRN QID PRN TP MUSCLE PAIN 01/04/21 22:45 Al Hydroxide/Mg Hydroxide (Mylanta Plus Xs) 15 ml PRN AFTMEALHC PRN PO DYSPEPSIA 01/04/21 22:45 Magnesium Hydroxide (Milk Of Magnesia) 2,400 mg PRN QHS PRN PO CONSTIPATION 01/04/21 22:45 Potassium Chloride (Klor-Con) 40 meq 1X ONCE PO 01/05/21 15:45 01/05/21 15:49 DC 01/05/21 17:29 Potassium Chloride (Klor-Con) 20 meq BID PO 01/05/21 21:00 02/07/21 04:18 Sertraline HCl (Zoloft) 25 mg DAILY PO 01/07/21 09:00 01/09/21 18:00 DC 01/09/21 08:24 Sertraline HCl (Zoloft) 50 mg DAILY PO 01/10/21 09:00 01/14/21 11:10 DC 01/14/21 08:11 Melatonin (Melatonin) 3 mg HS PO 01/08/21 21:00 02/06/21 20:44 Trazodone HCl (Desyrel) 50 mg PRN QHS PRN PO INSOMNIA MRX1 01/08/21 17:30 02/06/21 20:44 Risperidone (RisperDAL) 1 mg QHS PO 01/08/21 21:00 01/08/21 19:47 DC Olanzapine (ZyPREXA ZYDIS) 2.5 mg PRN Q2HRS PRN PO PSYCHOSIS 01/08/21 19:45 02/07/21 04:19 Risperidone (RisperDAL) 0.5 mg HS PO 01/08/21 21:00 01/08/21 19:58 DC Risperidone (RisperDAL) 0.25 mg HS PO 01/08/21 20:00 01/08/21 20:01 DC Risperidone (RisperDAL) 0.25 mg HS PO 01/08/21 21:00 01/14/21 11:11 DC 01/13/21 20:11 Lorazepam (Ativan Intensol) 0.25 mg PRN Q6HRS PRN PO ANXIETY / AGITATION 01/09/21 17:15 01/09/21 17:46 DC Lorazepam (Ativan Intensol) 0.25 mg PRN TID PRN PO ANXIETY / AGITATION 01/09/21 17:45 01/19/21 17:50 Trazodone HCl (Desyrel) 50 mg 1445 ONCE PO 01/11/21 14:45 01/11/21 14:54 DC Mirtazapine (Remeron) 7.5 mg QHS PO 01/11/21 21:00 01/18/21 19:49 DC 01/17/21 19:38 Sertraline HCl (Zoloft) 75 mg DAILY PO 01/15/21 09:00 01/19/21 17:19 DC 01/19/21 08:14 Risperidone (RisperDAL) 0.5 mg QHS PO 01/14/21 21:00 02/06/21 20:44 Mirtazapine (Remeron Anum-Tab) 15 mg QHS PO 01/18/21 21:00 02/06/21 20:43 Sertraline HCl (Zoloft) 100 mg DAILY PO 01/20/21 09:00 02/07/21 04:19 Divalproex Sodium (Depakote Sprinkles) 125 mg DAILY PO 01/22/21 09:00 02/07/21 04:19 Divalproex Sodium (Depakote Sprinkles) 125 mg DAILYWSUP PO 01/21/21 17:00 02/06/21 16:58 Risperidone (RisperDAL) 0.5 mg DAILY PO 01/23/21 09:00 02/07/21 04:18 I have reviewed the current psychotropics carefully including drug interactions. Risk benefit ratio favors no change other than as noted in my dictated progress note. 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
[2021-02-07 16:31] VITALS: BP 115/70
[2021-02-07] MEDS: MELATONIN 3 MG TABLET PO SCH (20:16)
[2021-02-07] MEDS: MIRTAZAPINE ODT 15 MG TAB.RAPDIS. PO SCH (20:16)
[2021-02-07] MEDS: ATORVASTATIN CALCIUM 10 MG TABLET. PO SCH (20:17)
--- NOTE | 2021-02-07 22:03 | PDOC ---
Exam Note: Devang Note: Please also refer to the separate dictated note~for this date of service dictated separately.~Patient seen individually. Discussed the patient with Nursing staff reviewed the chart.~Reviewed interim history and current functioning. Reviewed vital signs,~Labs/ Radiology~and current medications noted below. Continue current treatment with the changes noted in the dictated addendum note Assessment: Vital Signs/I&O: Vital Signs Date Time Temp Pulse Resp B/P (MAP) Pulse Ox O2 Delivery O2 Flow Rate FiO2 02/07/21 20:16 67 115/70 02/07/21 16:31 97.7 18 95 02/05/21 07:03 Room Air I & O 02/06/21 02/06/21 02/07/21 14:59 22:59 06:59 Intake Total 480 ml 600 ml Balance 480 ml 600 ml Current Medications: Meds: Current Medications Medications (Trade) Dose Ordered Sig/Marguerite Route PRN Reason Start Time Stop Time Status Last Admin Dose Admin Potassium Chloride (Klor-Con) 40 meq 1X ONCE PO 01/04/21 19:00 01/04/21 19:07 DC 01/04/21 19:16 Acetaminophen (Tylenol) 500 mg PRN Q12HR PRN PO PAIN 01/04/21 23:00 Cancel Atorvastatin Calcium (Lipitor) 10 mg QHS PO 01/05/21 21:00 02/07/21 20:17 Furosemide (Lasix) 40 mg DAILY PO 01/05/21 09:00 02/07/21 04:20 Metoprolol Tartrate (Lopressor) 50 mg BID PO 01/05/21 09:00 02/07/21 20:16 Potassium Chloride (Klor-Con) 20 meq DAILY PO 01/05/21 09:00 01/11/21 15:00 DC 01/11/21 08:57 Polyethylene Glycol (miraLAX) 17 gm DAILY PO 01/05/21 09:00 02/07/21 04:19 Lorazepam (Ativan) 1 mg PRN Q4HRS PRN PO ANXIETY / AGITATION 01/04/21 23:00 01/09/21 10:42 DC 01/07/21 23:07 Lorazepam (Ativan Intensol) 1 mg PRN Q6HRS PRN PO ANXIETY / AGITATION 01/04/21 23:00 01/09/21 17:03 DC Risperidone (RisperDAL) 0.25 mg DAILY PO 01/05/21 09:00 01/22/21 17:34 DC 01/22/21 08:35 Risperidone (RisperDAL) 0.5 mg QHS PO 01/05/21 21:00 01/08/21 17:27 DC 01/07/21 20:28 Melatonin (Melatonin) 6 mg HS PO 01/05/21 21:00 01/08/21 17:27 DC 01/07/21 20:28 Acetaminophen (Tylenol) 650 mg PRN Q6HRS PRN PO MILD PAIN / TEMP > 100.3'F 01/04/21 22:45 01/29/21 14:47 Multi-Ingredient Ointment (Analgesic [place]) 1 abby PRN QID PRN TP MUSCLE PAIN 01/04/21 22:45 Al Hydroxide/Mg Hydroxide (Mylanta Plus Xs) 15 ml PRN AFTMEALHC PRN PO DYSPEPSIA 01/04/21 22:45 Magnesium Hydroxide (Milk Of Magnesia) 2,400 mg PRN QHS PRN PO CONSTIPATION 01/04/21 22:45 Potassium Chloride (Klor-Con) 40 meq 1X ONCE PO 01/05/21 15:45 01/05/21 15:49 DC 01/05/21 17:29 Potassium Chloride (Klor-Con) 20 meq BID PO 01/05/21 21:00 02/07/21 20:17 Sertraline HCl (Zoloft) 25 mg DAILY PO 01/07/21 09:00 01/09/21 18:00 DC 01/09/21 08:24 Sertraline HCl (Zoloft) 50 mg DAILY PO 01/10/21 09:00 01/14/21 11:10 DC 01/14/21 08:11 Melatonin (Melatonin) 3 mg HS PO 01/08/21 21:00 02/07/21 20:16 Trazodone HCl (Desyrel) 50 mg PRN QHS PRN PO INSOMNIA MRX1 01/08/21 17:30 02/06/21 20:44 Risperidone (RisperDAL) 1 mg QHS PO 01/08/21 21:00 01/08/21 19:47 DC Olanzapine (ZyPREXA ZYDIS) 2.5 mg PRN Q2HRS PRN PO PSYCHOSIS 01/08/21 19:45 02/07/21 04:19 Risperidone (RisperDAL) 0.5 mg HS PO 01/08/21 21:00 01/08/21 19:58 DC Risperidone (RisperDAL) 0.25 mg HS PO 01/08/21 20:00 01/08/21 20:01 DC Risperidone (RisperDAL) 0.25 mg HS PO 01/08/21 21:00 01/14/21 11:11 DC 01/13/21 20:11 Lorazepam (Ativan Intensol) 0.25 mg PRN Q6HRS PRN PO ANXIETY / AGITATION 01/09/21 17:15 01/09/21 17:46 DC Lorazepam (Ativan Intensol) 0.25 mg PRN TID PRN PO ANXIETY / AGITATION 01/09/21 17:45 01/19/21 17:50 Trazodone HCl (Desyrel) 50 mg 1445 ONCE PO 01/11/21 14:45 01/11/21 14:54 DC Mirtazapine (Remeron) 7.5 mg QHS PO 01/11/21 21:00 01/18/21 19:49 DC 01/17/21 19:38 Sertraline HCl (Zoloft) 75 mg DAILY PO 01/15/21 09:00 01/19/21 17:19 DC 01/19/21 08:14 Risperidone (RisperDAL) 0.5 mg QHS PO 01/14/21 21:00 02/07/21 20:17 Mirtazapine (Remeron Anum-Tab) 15 mg QHS PO 01/18/21 21:00 02/07/21 20:16 Sertraline HCl (Zoloft) 100 mg DAILY PO 01/20/21 09:00 02/07/21 04:19 Divalproex Sodium (Depakote Sprinkles) 125 mg DAILY PO 01/22/21 09:00 02/07/21 04:19 Divalproex Sodium (Depakote Sprinkles) 125 mg DAILYWSUP PO 01/21/21 17:00 02/07/21 17:13 Risperidone (RisperDAL) 0.5 mg DAILY PO 01/23/21 09:00 02/07/21 04:18 I have reviewed the current psychotropics carefully including drug interactions. Risk benefit ratio favors no change other than as noted in my dictated progress note. 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
[2021-02-08 06:05] VITALS: BP 137/53
--- NOTE | 2021-02-08 06:47 | PDOC ---
Exam Note: Devang Note: This note is a late entry for 02/07/2021 covers elements not covered in my initial note. Subjective: The patient was seen individually in the evening of 02/07/2021 with Jaimee MARIANO, discussed and reviewed the chart. The patient slept 6 hours previous night. She is irritable at night. She is somewhat drowsy at other times. Previous evening she was moving furniture around, anxious, restless, somewhat paranoid. Review of Systems: No CV, , pulmonary, eye system symptoms on review. Reliability poor. Ambulation impaired with walker. Mental Status Exam: The patient is oriented to herself. Insight and judgment, recent and remote memory, attention and concentration is poor consistent with her diagnoses. Laboratory Data: Reviewed. Impression: Major neurocognitive disorder Alzheimer vascular with delusion, d epression, and behavioral disturbance. Anxiety disorder unspecified. Impulse control disorder unspecified. Plan: Continue current psychotropics from initial note. Assessment: Vital Signs/I&O: Vital Signs Date Time Temp Pulse Resp B/P (MAP) Pulse Ox O2 Delivery O2 Flow Rate FiO2 02/08/21 06:05 97.3 59 14 137/53 (81) 91 02/05/21 07:03 Room Air I & O 02/07/21 02/07/21 02/08/21 15:00 23:00 07:00 Intake Total 840 ml 480 ml Balance 840 ml 480 ml Current Medications: Meds: Current Medications Medications (Trade) Dose Ordered Sig/Marguerite Route PRN Reason Start Time Stop Time Status Last Admin Dose Admin Potassium Chloride (Klor-Con) 40 meq 1X ONCE PO 01/04/21 19:00 01/04/21 19:07 DC 01/04/21 19:16 Acetaminophen (Tylenol) 500 mg PRN Q12HR PRN PO PAIN 01/04/21 23:00 Cancel Atorvastatin Calcium (Lipitor) 10 mg QHS PO 01/05/21 21:00 02/07/21 20:17 Furosemide (Lasix) 40 mg DAILY PO 01/05/21 09:00 02/07/21 04:20 Metoprolol Tartrate (Lopressor) 50 mg BID PO 01/05/21 09:00 02/07/21 20:16 Potassium Chloride (Klor-Con) 20 meq DAILY PO 01/05/21 09:00 01/11/21 15:00 DC 01/11/21 08:57 Polyethylene Glycol (miraLAX) 17 gm DAILY PO 01/05/21 09:00 02/07/21 04:19 Lorazepam (Ativan) 1 mg PRN Q4HRS PRN PO ANXIETY / AGITATION 01/04/21 23:00 01/09/21 10:42 DC 01/07/21 23:07 Lorazepam (Ativan Intensol) 1 mg PRN Q6HRS PRN PO ANXIETY / AGITATION 01/04/21 23:00 01/09/21 17:03 DC Risperidone (RisperDAL) 0.25 mg DAILY PO 01/05/21 09:00 01/22/21 17:34 DC 01/22/21 08:35 Risperidone (RisperDAL) 0.5 mg QHS PO 01/05/21 21:00 01/08/21 17:27 DC 01/07/21 20:28 Melatonin (Melatonin) 6 mg HS PO 01/05/21 21:00 01/08/21 17:27 DC 01/07/21 20:28 Acetaminophen (Tylenol) 650 mg PRN Q6HRS PRN PO MILD PAIN / TEMP > 100.3'F 01/04/21 22:45 01/29/21 14:47 Multi-Ingredient Ointment (Analgesic [place]) 1 abby PRN QID PRN TP MUSCLE PAIN 01/04/21 22:45 Al Hydroxide/Mg Hydroxide (Mylanta Plus Xs) 15 ml PRN AFTMEALHC PRN PO DYSPEPSIA 01/04/21 22:45 Magnesium Hydroxide (Milk Of Magnesia) 2,400 mg PRN QHS PRN PO CONSTIPATION 01/04/21 22:45 Potassium Chloride (Klor-Con) 40 meq 1X ONCE PO 01/05/21 15:45 01/05/21 15:49 DC 01/05/21 17:29 Potassium Chloride (Klor-Con) 20 meq BID PO 01/05/21 21:00 02/07/21 20:17 Sertraline HCl (Zoloft) 25 mg DAILY PO 01/07/21 09:00 01/09/21 18:00 DC 01/09/21 08:24 Sertraline HCl (Zoloft) 50 mg DAILY PO 01/10/21 09:00 01/14/21 11:10 DC 01/14/21 08:11 Melatonin (Melatonin) 3 mg HS PO 01/08/21 21:00 02/07/21 20:16 Trazodone HCl (Desyrel) 50 mg PRN QHS PRN PO INSOMNIA MRX1 01/08/21 17:30 02/06/21 20:44 Risperidone (RisperDAL) 1 mg QHS PO 01/08/21 21:00 01/08/21 19:47 DC Olanzapine (ZyPREXA ZYDIS) 2.5 mg PRN Q2HRS PRN PO PSYCHOSIS 01/08/21 19:45 02/07/21 04:19 Risperidone (RisperDAL) 0.5 mg HS PO 01/08/21 21:00 01/08/21 19:58 DC Risperidone (RisperDAL) 0.25 mg HS PO 01/08/21 20:00 01/08/21 20:01 DC Risperidone (RisperDAL) 0.25 mg HS PO 01/08/21 21:00 01/14/21 11:11 DC 01/13/21 20:11 Lorazepam (Ativan Intensol) 0.25 mg PRN Q6HRS PRN PO ANXIETY / AGITATION 01/09/21 17:15 01/09/21 17:46 DC Lorazepam (Ativan Intensol) 0.25 mg PRN TID PRN PO ANXIETY / AGITATION 01/09/21 17:45 01/19/21 17:50 Trazodone HCl (Desyrel) 50 mg 1445 ONCE PO 01/11/21 14:45 01/11/21 14:54 DC Mirtazapine (Remeron) 7.5 mg QHS PO 01/11/21 21:00 01/18/21 19:49 DC 01/17/21 19:38 Sertraline HCl (Zoloft) 75 mg DAILY PO 01/15/21 09:00 01/19/21 17:19 DC 01/19/21 08:14 Risperidone (RisperDAL) 0.5 mg QHS PO 01/14/21 21:00 02/07/21 20:17 Mirtazapine (Remeron Anum-Tab) 15 mg QHS PO 01/18/21 21:00 02/07/21 20:16 Sertraline HCl (Zoloft) 100 mg DAILY PO 01/20/21 09:00 02/07/21 04:19 Divalproex Sodium (Depakote Sprinkles) 125 mg DAILY PO 01/22/21 09:00 02/07/21 04:19 Divalproex Sodium (Depakote Sprinkles) 125 mg DAILYWSUP PO 01/21/21 17:00 02/07/21 17:13 Risperidone (RisperDAL) 0.5 mg DAILY PO 01/23/21 09:00 02/07/21 04:18 I have reviewed the current psychotropics carefully including drug interactions. Risk benefit ratio favors no change other than as noted in my dictated progress note. 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
[2021-02-08] MEDS: POLYETHYLENE GLYCOL 3350 17 GM PACKET. PO SCH (07:58)
[2021-02-08] MEDS: POTASSIUM CHLORIDE 20 MEQ TABLET.ER. PO SCH ×2 (08:00→20:01)
[2021-02-08] MEDS: METOPROLOL TART IMMED RELEASE 50 MG TABLET PO SCH ×2 (08:01→20:02)
[2021-02-08] MEDS: risperiDONE 0.5 MG TABLET. PO SCH ×2 (08:01→20:01)
[2021-02-08] MEDS: DIVALPROEX 125 MG CAP.SPRINK PO SCH ×2 (08:01→17:11)
[2021-02-08] MEDS: SERTRALINE 100 MG TABLET. PO SCH (08:01)
[2021-02-08] MEDS: FUROSEMIDE 40 MG TABLET PO SCH (08:02)
[2021-02-08 15:49] VITALS: BP 122/68
[2021-02-08] MEDS: MIRTAZAPINE ODT 15 MG TAB.RAPDIS. PO SCH (20:01)
[2021-02-08] MEDS: MELATONIN 3 MG TABLET PO SCH (20:01)
[2021-02-08] MEDS: ATORVASTATIN CALCIUM 10 MG TABLET. PO SCH (20:01)
--- NOTE | 2021-02-08 22:21 | PDOC ---
Exam Note: Devang Note: Please also refer to the separate dictated note~for this date of service dictated separately.~Patient seen individually. Discussed the patient with Nursing staff reviewed the chart.~Reviewed interim history and current functioning. Reviewed vital signs,~Labs/ Radiology~and current medications noted below. Continue current treatment with the changes noted in the dictated addendum note Assessment: Vital Signs/I&O: Vital Signs Date Time Temp Pulse Resp B/P (MAP) Pulse Ox O2 Delivery O2 Flow Rate FiO2 02/08/21 20:02 75 122/68 02/08/21 15:49 97.0 18 91 02/05/21 07:03 Room Air I & O 02/07/21 02/07/21 02/08/21 15:00 23:00 07:00 Intake Total 840 ml 480 ml Balance 840 ml 480 ml Current Medications: Meds: Current Medications Medications (Trade) Dose Ordered Sig/Marguerite Route PRN Reason Start Time Stop Time Status Last Admin Dose Admin Potassium Chloride (Klor-Con) 40 meq 1X ONCE PO 01/04/21 19:00 01/04/21 19:07 DC 01/04/21 19:16 Acetaminophen (Tylenol) 500 mg PRN Q12HR PRN PO PAIN 01/04/21 23:00 Cancel Atorvastatin Calcium (Lipitor) 10 mg QHS PO 01/05/21 21:00 02/08/21 20:01 Furosemide (Lasix) 40 mg DAILY PO 01/05/21 09:00 02/08/21 08:02 Metoprolol Tartrate (Lopressor) 50 mg BID PO 01/05/21 09:00 02/08/21 20:02 Potassium Chloride (Klor-Con) 20 meq DAILY PO 01/05/21 09:00 01/11/21 15:00 DC 01/11/21 08:57 Polyethylene Glycol (miraLAX) 17 gm DAILY PO 01/05/21 09:00 02/08/21 07:58 Lorazepam (Ativan) 1 mg PRN Q4HRS PRN PO ANXIETY / AGITATION 01/04/21 23:00 01/09/21 10:42 DC 01/07/21 23:07 Lorazepam (Ativan Intensol) 1 mg PRN Q6HRS PRN PO ANXIETY / AGITATION 01/04/21 23:00 01/09/21 17:03 DC Risperidone (RisperDAL) 0.25 mg DAILY PO 01/05/21 09:00 01/22/21 17:34 DC 01/22/21 08:35 Risperidone (RisperDAL) 0.5 mg QHS PO 01/05/21 21:00 01/08/21 17:27 DC 01/07/21 20:28 Melatonin (Melatonin) 6 mg HS PO 01/05/21 21:00 01/08/21 17:27 DC 01/07/21 20:28 Acetaminophen (Tylenol) 650 mg PRN Q6HRS PRN PO MILD PAIN / TEMP > 100.3'F 01/04/21 22:45 01/29/21 14:47 Multi-Ingredient Ointment (Analgesic [place]) 1 abby PRN QID PRN TP MUSCLE PAIN 01/04/21 22:45 Al Hydroxide/Mg Hydroxide (Mylanta Plus Xs) 15 ml PRN AFTMEALHC PRN PO DYSPEPSIA 01/04/21 22:45 Magnesium Hydroxide (Milk Of Magnesia) 2,400 mg PRN QHS PRN PO CONSTIPATION 01/04/21 22:45 Potassium Chloride (Klor-Con) 40 meq 1X ONCE PO 01/05/21 15:45 01/05/21 15:49 DC 01/05/21 17:29 Potassium Chloride (Klor-Con) 20 meq BID PO 01/05/21 21:00 02/08/21 20:01 Sertraline HCl (Zoloft) 25 mg DAILY PO 01/07/21 09:00 01/09/21 18:00 DC 01/09/21 08:24 Sertraline HCl (Zoloft) 50 mg DAILY PO 01/10/21 09:00 01/14/21 11:10 DC 01/14/21 08:11 Melatonin (Melatonin) 3 mg HS PO 01/08/21 21:00 02/08/21 20:01 Trazodone HCl (Desyrel) 50 mg PRN QHS PRN PO INSOMNIA MRX1 01/08/21 17:30 02/06/21 20:44 Risperidone (RisperDAL) 1 mg QHS PO 01/08/21 21:00 01/08/21 19:47 DC Olanzapine (ZyPREXA ZYDIS) 2.5 mg PRN Q2HRS PRN PO PSYCHOSIS 01/08/21 19:45 02/07/21 04:19 Risperidone (RisperDAL) 0.5 mg HS PO 01/08/21 21:00 01/08/21 19:58 DC Risperidone (RisperDAL) 0.25 mg HS PO 01/08/21 20:00 01/08/21 20:01 DC Risperidone (RisperDAL) 0.25 mg HS PO 01/08/21 21:00 01/14/21 11:11 DC 01/13/21 20:11 Lorazepam (Ativan Intensol) 0.25 mg PRN Q6HRS PRN PO ANXIETY / AGITATION 01/09/21 17:15 01/09/21 17:46 DC Lorazepam (Ativan Intensol) 0.25 mg PRN TID PRN PO ANXIETY / AGITATION 01/09/21 17:45 01/19/21 17:50 Trazodone HCl (Desyrel) 50 mg 1445 ONCE PO 01/11/21 14:45 01/11/21 14:54 DC Mirtazapine (Remeron) 7.5 mg QHS PO 01/11/21 21:00 01/18/21 19:49 DC 01/17/21 19:38 Sertraline HCl (Zoloft) 75 mg DAILY PO 01/15/21 09:00 01/19/21 17:19 DC 01/19/21 08:14 Risperidone (RisperDAL) 0.5 mg QHS PO 01/14/21 21:00 02/08/21 20:01 Mirtazapine (Remeron Anum-Tab) 15 mg QHS PO 01/18/21 21:00 02/08/21 20:01 Sertraline HCl (Zoloft) 100 mg DAILY PO 01/20/21 09:00 02/08/21 08:01 Divalproex Sodium (Depakote Sprinkles) 125 mg DAILY PO 01/22/21 09:00 02/08/21 08:01 Divalproex Sodium (Depakote Sprinkles) 125 mg DAILYWSUP PO 01/21/21 17:00 02/08/21 17:11 Risperidone (RisperDAL) 0.5 mg DAILY PO 01/23/21 09:00 02/08/21 08:01 I have reviewed the current psychotropics carefully including drug interactions. Risk benefit ratio favors no change other than as noted in my dictated progress note. 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
[2021-02-09 06:05] VITALS: BP 131/75
[2021-02-09] MEDS: DIVALPROEX 125 MG CAP.SPRINK PO SCH ×2 (08:18→17:09)
[2021-02-09] MEDS: METOPROLOL TART IMMED RELEASE 50 MG TABLET PO SCH ×2 (08:19→19:57)
[2021-02-09] MEDS: FUROSEMIDE 40 MG TABLET PO SCH (08:19)
[2021-02-09] MEDS: POLYETHYLENE GLYCOL 3350 17 GM PACKET. PO SCH (08:20)
[2021-02-09] MEDS: risperiDONE 0.5 MG TABLET. PO SCH ×2 (08:21→19:57)
[2021-02-09] MEDS: POTASSIUM CHLORIDE 20 MEQ TABLET.ER. PO SCH ×2 (08:21→19:57)
[2021-02-09] MEDS: SERTRALINE 100 MG TABLET. PO SCH (08:21)
[2021-02-09 15:36] VITALS: BP 115/62
[2021-02-09] MEDS: ATORVASTATIN CALCIUM 10 MG TABLET. PO SCH (19:56)
[2021-02-09] MEDS: MIRTAZAPINE ODT 15 MG TAB.RAPDIS. PO SCH (19:58)
[2021-02-09] MEDS: MELATONIN 3 MG TABLET PO SCH (19:58)
--- NOTE | 2021-02-09 22:20 | PDOC ---
Exam Note: Devang Note: Please also refer to the separate dictated note~for this date of service dictated separately.~Patient seen individually. Discussed the patient with Nursing staff reviewed the chart.~Reviewed interim history and current functioning. Reviewed vital signs,~Labs/ Radiology~and current medications noted below. Continue current treatment with the changes noted in the dictated addendum note Assessment: Vital Signs/I&O: Vital Signs Date Time Temp Pulse Resp B/P (MAP) Pulse Ox O2 Delivery O2 Flow Rate FiO2 02/09/21 19:57 64 115/62 02/09/21 15:36 98.4 16 94 02/05/21 07:03 Room Air I & O 02/08/21 02/08/21 02/09/21 15:00 23:00 07:00 Intake Total 720 ml 480 ml Balance 720 ml 480 ml Current Medications: Meds: Current Medications Medications (Trade) Dose Ordered Sig/Marguerite Route PRN Reason Start Time Stop Time Status Last Admin Dose Admin Potassium Chloride (Klor-Con) 40 meq 1X ONCE PO 01/04/21 19:00 01/04/21 19:07 DC 01/04/21 19:16 Acetaminophen (Tylenol) 500 mg PRN Q12HR PRN PO PAIN 01/04/21 23:00 Cancel Atorvastatin Calcium (Lipitor) 10 mg QHS PO 01/05/21 21:00 02/09/21 19:56 Furosemide (Lasix) 40 mg DAILY PO 01/05/21 09:00 02/09/21 08:19 Metoprolol Tartrate (Lopressor) 50 mg BID PO 01/05/21 09:00 02/09/21 19:57 Potassium Chloride (Klor-Con) 20 meq DAILY PO 01/05/21 09:00 01/11/21 15:00 DC 01/11/21 08:57 Polyethylene Glycol (miraLAX) 17 gm DAILY PO 01/05/21 09:00 02/09/21 08:20 Lorazepam (Ativan) 1 mg PRN Q4HRS PRN PO ANXIETY / AGITATION 01/04/21 23:00 01/09/21 10:42 DC 01/07/21 23:07 Lorazepam (Ativan Intensol) 1 mg PRN Q6HRS PRN PO ANXIETY / AGITATION 01/04/21 23:00 01/09/21 17:03 DC Risperidone (RisperDAL) 0.25 mg DAILY PO 01/05/21 09:00 01/22/21 17:34 DC 01/22/21 08:35 Risperidone (RisperDAL) 0.5 mg QHS PO 01/05/21 21:00 01/08/21 17:27 DC 01/07/21 20:28 Melatonin (Melatonin) 6 mg HS PO 01/05/21 21:00 01/08/21 17:27 DC 01/07/21 20:28 Acetaminophen (Tylenol) 650 mg PRN Q6HRS PRN PO MILD PAIN / TEMP > 100.3'F 01/04/21 22:45 01/29/21 14:47 Multi-Ingredient Ointment (Analgesic [place]) 1 abby PRN QID PRN TP MUSCLE PAIN 01/04/21 22:45 Al Hydroxide/Mg Hydroxide (Mylanta Plus Xs) 15 ml PRN AFTMEALHC PRN PO DYSPEPSIA 01/04/21 22:45 Magnesium Hydroxide (Milk Of Magnesia) 2,400 mg PRN QHS PRN PO CONSTIPATION 01/04/21 22:45 Potassium Chloride (Klor-Con) 40 meq 1X ONCE PO 01/05/21 15:45 01/05/21 15:49 DC 01/05/21 17:29 Potassium Chloride (Klor-Con) 20 meq BID PO 01/05/21 21:00 02/09/21 19:57 Sertraline HCl (Zoloft) 25 mg DAILY PO 01/07/21 09:00 01/09/21 18:00 DC 01/09/21 08:24 Sertraline HCl (Zoloft) 50 mg DAILY PO 01/10/21 09:00 01/14/21 11:10 DC 01/14/21 08:11 Melatonin (Melatonin) 3 mg HS PO 01/08/21 21:00 02/09/21 19:58 Trazodone HCl (Desyrel) 50 mg PRN QHS PRN PO INSOMNIA MRX1 01/08/21 17:30 02/06/21 20:44 Risperidone (RisperDAL) 1 mg QHS PO 01/08/21 21:00 01/08/21 19:47 DC Olanzapine (ZyPREXA ZYDIS) 2.5 mg PRN Q2HRS PRN PO PSYCHOSIS 01/08/21 19:45 02/07/21 04:19 Risperidone (RisperDAL) 0.5 mg HS PO 01/08/21 21:00 01/08/21 19:58 DC Risperidone (RisperDAL) 0.25 mg HS PO 01/08/21 20:00 01/08/21 20:01 DC Risperidone (RisperDAL) 0.25 mg HS PO 01/08/21 21:00 01/14/21 11:11 DC 01/13/21 20:11 Lorazepam (Ativan Intensol) 0.25 mg PRN Q6HRS PRN PO ANXIETY / AGITATION 01/09/21 17:15 01/09/21 17:46 DC Lorazepam (Ativan Intensol) 0.25 mg PRN TID PRN PO ANXIETY / AGITATION 01/09/21 17:45 01/19/21 17:50 Trazodone HCl (Desyrel) 50 mg 1445 ONCE PO 01/11/21 14:45 01/11/21 14:54 DC Mirtazapine (Remeron) 7.5 mg QHS PO 01/11/21 21:00 01/18/21 19:49 DC 01/17/21 19:38 Sertraline HCl (Zoloft) 75 mg DAILY PO 01/15/21 09:00 01/19/21 17:19 DC 01/19/21 08:14 Risperidone (RisperDAL) 0.5 mg QHS PO 01/14/21 21:00 02/09/21 19:57 Mirtazapine (Remeron Anum-Tab) 15 mg QHS PO 01/18/21 21:00 02/09/21 19:58 Sertraline HCl (Zoloft) 100 mg DAILY PO 01/20/21 09:00 02/09/21 08:21 Divalproex Sodium (Depakote Sprinkles) 125 mg DAILY PO 01/22/21 09:00 02/09/21 08:18 Divalproex Sodium (Depakote Sprinkles) 125 mg DAILYWSUP PO 01/21/21 17:00 02/09/21 17:09 Risperidone (RisperDAL) 0.5 mg DAILY PO 01/23/21 09:00 02/09/21 08:21 I have reviewed the current psychotropics carefully including drug interactions. Risk benefit ratio favors no change other than as noted in my dictated progress note. 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
[2021-02-10 05:54] VITALS: BP 114/66
[2021-02-10] MEDS: SERTRALINE 100 MG TABLET. PO SCH (08:18)
[2021-02-10] MEDS: DIVALPROEX 125 MG CAP.SPRINK PO SCH ×2 (08:18→16:54)
[2021-02-10] MEDS: POTASSIUM CHLORIDE 20 MEQ TABLET.ER. PO SCH ×2 (08:18→20:19)
[2021-02-10] MEDS: risperiDONE 0.5 MG TABLET. PO SCH ×2 (08:18→20:20)
[2021-02-10] MEDS: POLYETHYLENE GLYCOL 3350 17 GM PACKET. PO SCH (08:19)
[2021-02-10] MEDS: FUROSEMIDE 40 MG TABLET PO SCH (08:19)
[2021-02-10] MEDS: METOPROLOL TART IMMED RELEASE 50 MG TABLET PO SCH ×2 (08:19→20:20)
--- NOTE | 2021-02-10 09:19 | PDOC ---
Exam Note: Devang Note: This note is a late entry for 02/08/2021 covers elements not covered in my initial note. Subjective: The patient was seen individually in the evening of 02/08/2021 with Jaimee MARIANO, discussed and reviewed the chart. The patient slept 8-1/4 hours previous night. She remains confused, otherwise, doing better. Review of Systems: No CV, , pulmonary, eye system symptoms on review. Reliability poor. Ambulation impaired with walker. Mental Status Exam: The patient is oriented to herself. Insight and judgment, recent and remote memory, attention and concentration is poor consistent with her diagnoses. Laboratory Data: Reviewed. Impression: Major neurocognitive disorder Alzheimer vascular with delusion, depression, and behavioral disturbance. Anxiety disorder unspecified. Impulse control disorder unspecified. Plan: Continue current psychotropics from initial note. Assessment: Vital Signs/I&O: Vital Signs Date Time Temp Pulse Resp B/P (MAP) Pulse Ox O2 Delivery O2 Flow Rate FiO2 02/10/21 08:19 84 114/66 02/10/21 05:54 97.4 18 92 Room Air I & O 02/09/21 02/09/21 02/10/21 15:00 23:00 07:00 Intake Total 840 ml 600 ml Balance 840 ml 600 ml Current Medications: Meds: Current Medications Medications (Trade) Dose Ordered Sig/Marguerite Route PRN Reason Start Time Stop Time Status Last Admin Dose Admin Potassium Chloride (Klor-Con) 40 meq 1X ONCE PO 01/04/21 19:00 01/04/21 19:07 DC 01/04/21 19:16 Acetaminophen (Tylenol) 500 mg PRN Q12HR PRN PO PAIN 01/04/21 23:00 Cancel Atorvastatin Calcium (Lipitor) 10 mg QHS PO 01/05/21 21:00 02/09/21 19:56 Furosemide (Lasix) 40 mg DAILY PO 01/05/21 09:00 02/10/21 08:19 Metoprolol Tartrate (Lopressor) 50 mg BID PO 01/05/21 09:00 02/10/21 08:19 Potassium Chloride (Klor-Con) 20 meq DAILY PO 01/05/21 09:00 01/11/21 15:00 DC 01/11/21 08:57 Polyethylene Glycol (miraLAX) 17 gm DAILY PO 01/05/21 09:00 02/10/21 08:19 Lorazepam (Ativan) 1 mg PRN Q4HRS PRN PO ANXIETY / AGITATION 01/04/21 23:00 01/09/21 10:42 DC 01/07/21 23:07 Lorazepam (Ativan Intensol) 1 mg PRN Q6HRS PRN PO ANXIETY / AGITATION 01/04/21 23:00 01/09/21 17:03 DC Risperidone (RisperDAL) 0.25 mg DAILY PO 01/05/21 09:00 01/22/21 17:34 DC 01/22/21 08:35 Risperidone (RisperDAL) 0.5 mg QHS PO 01/05/21 21:00 01/08/21 17:27 DC 01/07/21 20:28 Melatonin (Melatonin) 6 mg HS PO 01/05/21 21:00 01/08/21 17:27 DC 01/07/21 20:28 Acetaminophen (Tylenol) 650 mg PRN Q6HRS PRN PO MILD PAIN / TEMP > 100.3'F 01/04/21 22:45 01/29/21 14:47 Multi-Ingredient Ointment (Analgesic [place]) 1 abby PRN QID PRN TP MUSCLE PAIN 01/04/21 22:45 Al Hydroxide/Mg Hydroxide (Mylanta Plus Xs) 15 ml PRN AFTMEALHC PRN PO DYSPEPSIA 01/04/21 22:45 Magnesium Hydroxide (Milk Of Magnesia) 2,400 mg PRN QHS PRN PO CONSTIPATION 01/04/21 22:45 Potassium Chloride (Klor-Con) 40 meq 1X ONCE PO 01/05/21 15:45 01/05/21 15:49 DC 01/05/21 17:29 Potassium Chloride (Klor-Con) 20 meq BID PO 01/05/21 21:00 02/10/21 08:18 Sertraline HCl (Zoloft) 25 mg DAILY PO 01/07/21 09:00 01/09/21 18:00 DC 01/09/21 08:24 Sertraline HCl (Zoloft) 50 mg DAILY PO 01/10/21 09:00 01/14/21 11:10 DC 01/14/21 08:11 Melatonin (Melatonin) 3 mg HS PO 01/08/21 21:00 02/09/21 19:58 Trazodone HCl (Desyrel) 50 mg PRN QHS PRN PO INSOMNIA MRX1 01/08/21 17:30 02/06/21 20:44 Risperidone (RisperDAL) 1 mg QHS PO 01/08/21 21:00 01/08/21 19:47 DC Olanzapine (ZyPREXA ZYDIS) 2.5 mg PRN Q2HRS PRN PO PSYCHOSIS 01/08/21 19:45 02/07/21 04:19 Risperidone (RisperDAL) 0.5 mg HS PO 01/08/21 21:00 01/08/21 19:58 DC Risperidone (RisperDAL) 0.25 mg HS PO 01/08/21 20:00 01/08/21 20:01 DC Risperidone (RisperDAL) 0.25 mg HS PO 01/08/21 21:00 01/14/21 11:11 DC 01/13/21 20:11 Lorazepam (Ativan Intensol) 0.25 mg PRN Q6HRS PRN PO ANXIETY / AGITATION 01/09/21 17:15 01/09/21 17:46 DC Lorazepam (Ativan Intensol) 0.25 mg PRN TID PRN PO ANXIETY / AGITATION 01/09/21 17:45 01/19/21 17:50 Trazodone HCl (Desyrel) 50 mg 1445 ONCE PO 01/11/21 14:45 01/11/21 14:54 DC Mirtazapine (Remeron) 7.5 mg QHS PO 01/11/21 21:00 01/18/21 19:49 DC 01/17/21 19:38 Sertraline HCl (Zoloft) 75 mg DAILY PO 01/15/21 09:00 01/19/21 17:19 DC 01/19/21 08:14 Risperidone (RisperDAL) 0.5 mg QHS PO 01/14/21 21:00 02/09/21 19:57 Mirtazapine (Remeron Anum-Tab) 15 mg QHS PO 01/18/21 21:00 02/09/21 19:58 Sertraline HCl (Zoloft) 100 mg DAILY PO 01/20/21 09:00 02/10/21 08:18 Divalproex Sodium (Depakote Sprinkles) 125 mg DAILY PO 01/22/21 09:00 02/10/21 08:18 Divalproex Sodium (Depakote Sprinkles) 125 mg DAILYWSUP PO 01/21/21 17:00 02/09/21 17:09 Risperidone (RisperDAL) 0.5 mg DAILY PO 01/23/21 09:00 02/10/21 08:18 I have reviewed the current psychotropics carefully including drug interactions. Risk benefit ratio favors no change other than as noted in my dictated progress note. 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
[2021-02-10 15:46] VITALS: BP 124/74
[2021-02-10] MEDS: ATORVASTATIN CALCIUM 10 MG TABLET. PO SCH (20:19)
[2021-02-10] MEDS: MIRTAZAPINE ODT 15 MG TAB.RAPDIS. PO SCH (20:19)
[2021-02-10] MEDS: MELATONIN 3 MG TABLET PO SCH (20:19)
[2021-02-11] MEDS: traZODone 50 MG TABLET. PO PRN (01:58)
[2021-02-11 06:19] VITALS: BP 122/58
--- NOTE | 2021-02-11 06:50 | PDOC ---
Exam Note: Devang Note: Late entry for 02/10/2021. Please also refer to the separate dictated note~for this date of service dictated separately.~Patient seen individually. Discussed the patient with Nursing staff reviewed the chart.~Reviewed interim history and current functioning. Reviewed vital signs,~Labs/ Radiology~and current medic ations noted below. Continue current treatment with the changes noted in the dictated addendum note Assessment: Vital Signs/I&O: Vital Signs Date Time Temp Pulse Resp B/P (MAP) Pulse Ox O2 Delivery O2 Flow Rate FiO2 02/11/21 06:19 97.2 65 20 122/58 (79) 92 Room Air I & O 02/10/21 02/10/21 02/11/21 15:00 23:00 07:00 Intake Total 360 ml 360 ml Balance 360 ml 360 ml Current Medications: Meds: Current Medications Medications (Trade) Dose Ordered Sig/Marguerite Route PRN Reason Start Time Stop Time Status Last Admin Dose Admin Potassium Chloride (Klor-Con) 40 meq 1X ONCE PO 01/04/21 19:00 01/04/21 19:07 DC 01/04/21 19:16 Acetaminophen (Tylenol) 500 mg PRN Q12HR PRN PO PAIN 01/04/21 23:00 Cancel Atorvastatin Calcium (Lipitor) 10 mg QHS PO 01/05/21 21:00 02/10/21 20:19 Furosemide (Lasix) 40 mg DAILY PO 01/05/21 09:00 02/10/21 08:19 Metoprolol Tartrate (Lopressor) 50 mg BID PO 01/05/21 09:00 02/10/21 20:20 Potassium Chloride (Klor-Con) 20 meq DAILY PO 01/05/21 09:00 01/11/21 15:00 DC 01/11/21 08:57 Polyethylene Glycol (miraLAX) 17 gm DAILY PO 01/05/21 09:00 02/10/21 08:19 Lorazepam (Ativan) 1 mg PRN Q4HRS PRN PO ANXIETY / AGITATION 01/04/21 23:00 01/09/21 10:42 DC 01/07/21 23:07 Lorazepam (Ativan Intensol) 1 mg PRN Q6HRS PRN PO ANXIETY / AGITATION 01/04/21 23:00 01/09/21 17:03 DC Risperidone (RisperDAL) 0.25 mg DAILY PO 01/05/21 09:00 01/22/21 17:34 DC 01/22/21 08:35 Risperidone (RisperDAL) 0.5 mg QHS PO 01/05/21 21:00 01/08/21 17:27 DC 01/07/21 20:28 Melatonin (Melatonin) 6 mg HS PO 01/05/21 21:00 01/08/21 17:27 DC 01/07/21 20:28 Acetaminophen (Tylenol) 650 mg PRN Q6HRS PRN PO MILD PAIN / TEMP > 100.3'F 01/04/21 22:45 01/29/21 14:47 Multi-Ingredient Ointment (Analgesic [place]) 1 abby PRN QID PRN TP MUSCLE PAIN 01/04/21 22:45 Al Hydroxide/Mg Hydroxide (Mylanta Plus Xs) 15 ml PRN AFTMEALHC PRN PO DYSPEPSIA 01/04/21 22:45 Magnesium Hydroxide (Milk Of Magnesia) 2,400 mg PRN QHS PRN PO CONSTIPATION 01/04/21 22:45 Potassium Chloride (Klor-Con) 40 meq 1X ONCE PO 01/05/21 15:45 01/05/21 15:49 DC 01/05/21 17:29 Potassium Chloride (Klor-Con) 20 meq BID PO 01/05/21 21:00 02/10/21 20:19 Sertraline HCl (Zoloft) 25 mg DAILY PO 01/07/21 09:00 01/09/21 18:00 DC 01/09/21 08:24 Sertraline HCl (Zoloft) 50 mg DAILY PO 01/10/21 09:00 01/14/21 11:10 DC 01/14/21 08:11 Melatonin (Melatonin) 3 mg HS PO 01/08/21 21:00 02/10/21 20:19 Trazodone HCl (Desyrel) 50 mg PRN QHS PRN PO INSOMNIA MRX1 01/08/21 17:30 02/11/21 01:58 Risperidone (RisperDAL) 1 mg QHS PO 01/08/21 21:00 01/08/21 19:47 DC Olanzapine (ZyPREXA ZYDIS) 2.5 mg PRN Q2HRS PRN PO PSYCHOSIS 01/08/21 19:45 02/11/21 01:58 Risperidone (RisperDAL) 0.5 mg HS PO 01/08/21 21:00 01/08/21 19:58 DC Risperidone (RisperDAL) 0.25 mg HS PO 01/08/21 20:00 01/08/21 20:01 DC Risperidone (RisperDAL) 0.25 mg HS PO 01/08/21 21:00 01/14/21 11:11 DC 01/13/21 20:11 Lorazepam (Ativan Intensol) 0.25 mg PRN Q6HRS PRN PO ANXIETY / AGITATION 01/09/21 17:15 01/09/21 17:46 DC Lorazepam (Ativan Intensol) 0.25 mg PRN TID PRN PO ANXIETY / AGITATION 01/09/21 17:45 01/19/21 17:50 Trazodone HCl (Desyrel) 50 mg 1445 ONCE PO 01/11/21 14:45 01/11/21 14:54 DC Mirtazapine (Remeron) 7.5 mg QHS PO 01/11/21 21:00 01/18/21 19:49 DC 01/17/21 19:38 Sertraline HCl (Zoloft) 75 mg DAILY PO 01/15/21 09:00 01/19/21 17:19 DC 01/19/21 08:14 Risperidone (RisperDAL) 0.5 mg QHS PO 01/14/21 21:00 02/10/21 20:20 Mirtazapine (Remeron Anum-Tab) 15 mg QHS PO 01/18/21 21:00 02/10/21 20:19 Sertraline HCl (Zoloft) 100 mg DAILY PO 01/20/21 09:00 02/10/21 08:18 Divalproex Sodium (Depakote Sprinkles) 125 mg DAILY PO 01/22/21 09:00 02/10/21 08:18 Divalproex Sodium (Depakote Sprinkles) 125 mg DAILYWSUP PO 01/21/21 17:00 02/10/21 16:54 Risperidone (RisperDAL) 0.5 mg DAILY PO 01/23/21 09:00 02/10/21 08:18 I have reviewed the current psychotropics carefully including drug interactions. Risk benefit ratio favors no change other than as noted in my dictated progress note. 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
[2021-02-11] MEDS: POLYETHYLENE GLYCOL 3350 17 GM PACKET. PO SCH (08:09)
[2021-02-11] MEDS: DIVALPROEX 125 MG CAP.SPRINK PO SCH ×2 (08:09→17:38)
[2021-02-11] MEDS: FUROSEMIDE 40 MG TABLET PO SCH (08:10)
[2021-02-11] MEDS: SERTRALINE 100 MG TABLET. PO SCH (08:11)
[2021-02-11] MEDS: METOPROLOL TART IMMED RELEASE 50 MG TABLET PO SCH ×2 (08:11→20:31)
[2021-02-11] MEDS: risperiDONE 0.5 MG TABLET. PO SCH ×2 (08:11→20:30)
[2021-02-11] MEDS: POTASSIUM CHLORIDE 20 MEQ TABLET.ER. PO SCH ×2 (08:11→20:30)
[2021-02-11 15:44] VITALS: BP 127/69
[2021-02-11] MEDS: ATORVASTATIN CALCIUM 10 MG TABLET. PO SCH (20:30)
[2021-02-11] MEDS: MIRTAZAPINE ODT 15 MG TAB.RAPDIS. PO SCH (20:30)
[2021-02-11] MEDS: MELATONIN 3 MG TABLET PO SCH (20:30)
--- NOTE | 2021-02-11 22:07 | PDOC ---
Exam Note: Devang Note: Please also refer to the separate dictated note~for this date of service dictated separately.~Patient seen individually. Discussed the patient with Nursing staff reviewed the chart.~Reviewed interim history and current functioning. Reviewed vital signs,~Labs/ Radiology~and current medications noted below. Continue current treatment with the changes noted in the dictated addendum note Assessment: Vital Signs/I&O: Vital Signs Date Time Temp Pulse Resp B/P (MAP) Pulse Ox O2 Delivery O2 Flow Rate FiO2 02/11/21 20:31 68 127/69 02/11/21 15:44 98.2 18 94 02/11/21 06:19 Room Air I & O 02/10/21 02/10/21 02/11/21 15:00 23:00 07:00 Intake Total 360 ml 360 ml Balance 360 ml 360 ml Current Medications: Meds: Current Medications Medications (Trade) Dose Ordered Sig/Marguerite Route PRN Reason Start Time Stop Time Status Last Admin Dose Admin Potassium Chloride (Klor-Con) 40 meq 1X ONCE PO 01/04/21 19:00 01/04/21 19:07 DC 01/04/21 19:16 Acetaminophen (Tylenol) 500 mg PRN Q12HR PRN PO PAIN 01/04/21 23:00 Cancel Atorvastatin Calcium (Lipitor) 10 mg QHS PO 01/05/21 21:00 02/11/21 20:30 Furosemide (Lasix) 40 mg DAILY PO 01/05/21 09:00 02/11/21 08:10 Metoprolol Tartrate (Lopressor) 50 mg BID PO 01/05/21 09:00 02/11/21 20:31 Potassium Chloride (Klor-Con) 20 meq DAILY PO 01/05/21 09:00 01/11/21 15:00 DC 01/11/21 08:57 Polyethylene Glycol (miraLAX) 17 gm DAILY PO 01/05/21 09:00 02/11/21 08:09 Lorazepam (Ativan) 1 mg PRN Q4HRS PRN PO ANXIETY / AGITATION 01/04/21 23:00 01/09/21 10:42 DC 01/07/21 23:07 Lorazepam (Ativan Intensol) 1 mg PRN Q6HRS PRN PO ANXIETY / AGITATION 01/04/21 23:00 01/09/21 17:03 DC Risperidone (RisperDAL) 0.25 mg DAILY PO 01/05/21 09:00 01/22/21 17:34 DC 01/22/21 08:35 Risperidone (RisperDAL) 0.5 mg QHS PO 01/05/21 21:00 01/08/21 17:27 DC 01/07/21 20:28 Melatonin (Melatonin) 6 mg HS PO 01/05/21 21:00 01/08/21 17:27 DC 01/07/21 20:28 Acetaminophen (Tylenol) 650 mg PRN Q6HRS PRN PO MILD PAIN / TEMP > 100.3'F 01/04/21 22:45 01/29/21 14:47 Multi-Ingredient Ointment (Analgesic [place]) 1 abby PRN QID PRN TP MUSCLE PAIN 01/04/21 22:45 Al Hydroxide/Mg Hydroxide (Mylanta Plus Xs) 15 ml PRN AFTMEALHC PRN PO DYSPEPSIA 01/04/21 22:45 Magnesium Hydroxide (Milk Of Magnesia) 2,400 mg PRN QHS PRN PO CONSTIPATION 01/04/21 22:45 Potassium Chloride (Klor-Con) 40 meq 1X ONCE PO 01/05/21 15:45 01/05/21 15:49 DC 01/05/21 17:29 Potassium Chloride (Klor-Con) 20 meq BID PO 01/05/21 21:00 02/11/21 20:30 Sertraline HCl (Zoloft) 25 mg DAILY PO 01/07/21 09:00 01/09/21 18:00 DC 01/09/21 08:24 Sertraline HCl (Zoloft) 50 mg DAILY PO 01/10/21 09:00 01/14/21 11:10 DC 01/14/21 08:11 Melatonin (Melatonin) 3 mg HS PO 01/08/21 21:00 02/11/21 20:30 Trazodone HCl (Desyrel) 50 mg PRN QHS PRN PO INSOMNIA MRX1 01/08/21 17:30 02/11/21 01:58 Risperidone (RisperDAL) 1 mg QHS PO 01/08/21 21:00 01/08/21 19:47 DC Olanzapine (ZyPREXA ZYDIS) 2.5 mg PRN Q2HRS PRN PO PSYCHOSIS 01/08/21 19:45 02/11/21 01:58 Risperidone (RisperDAL) 0.5 mg HS PO 01/08/21 21:00 01/08/21 19:58 DC Risperidone (RisperDAL) 0.25 mg HS PO 01/08/21 20:00 01/08/21 20:01 DC Risperidone (RisperDAL) 0.25 mg HS PO 01/08/21 21:00 01/14/21 11:11 DC 01/13/21 20:11 Lorazepam (Ativan Intensol) 0.25 mg PRN Q6HRS PRN PO ANXIETY / AGITATION 01/09/21 17:15 01/09/21 17:46 DC Lorazepam (Ativan Intensol) 0.25 mg PRN TID PRN PO ANXIETY / AGITATION 01/09/21 17:45 01/19/21 17:50 Trazodone HCl (Desyrel) 50 mg 1445 ONCE PO 01/11/21 14:45 01/11/21 14:54 DC Mirtazapine (Remeron) 7.5 mg QHS PO 01/11/21 21:00 01/18/21 19:49 DC 01/17/21 19:38 Sertraline HCl (Zoloft) 75 mg DAILY PO 01/15/21 09:00 01/19/21 17:19 DC 01/19/21 08:14 Risperidone (RisperDAL) 0.5 mg QHS PO 01/14/21 21:00 02/11/21 20:30 Mirtazapine (Remeron Anum-Tab) 15 mg QHS PO 01/18/21 21:00 02/11/21 20:30 Sertraline HCl (Zoloft) 100 mg DAILY PO 01/20/21 09:00 02/11/21 08:11 Divalproex Sodium (Depakote Sprinkles) 125 mg DAILY PO 01/22/21 09:00 02/11/21 08:09 Divalproex Sodium (Depakote Sprinkles) 125 mg DAILYWSUP PO 01/21/21 17:00 02/11/21 17:38 Risperidone (RisperDAL) 0.5 mg DAILY PO 01/23/21 09:00 02/11/21 08:11 I have reviewed the current psychotropics carefully including drug interactions. Risk benefit ratio favors no change other than as noted in my dictated progress note. 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
[2021-02-12 06:21] VITALS: BP 179/70
--- NOTE | 2021-02-12 06:37 | PDOC ---
Exam Note: Devang Note: This note is a late entry for 02/10/2021 covers elements not covered in my initial note. Subjective: The patient was seen individually in the evening of 02/10/2021 with Mónica MARIANO, discussed and reviewed the chart. The patient slept 6-3/4 hours previous night. She is sedated in the morning. Received Zyprexa for her agitation in the evening. Repeat valproic acid level. I met with her in her room. Review of Systems: No CV, , pulmonary, eye system symptoms on review. Reliability poor. Ambulation impaired with walker. Mental Status Exam: The patient is oriented to herself. Insight and judgment, recent and remote memory, attention and concentration is poor consistent with her diagnoses. Laboratory Data: Reviewed. Impression: Major neurocognitive disorder Alzheimer vascular with delusion, depression, and behavioral disturbance. Anxiety disorder unspecified. Impulse control disorder unspecified. Plan: Continue current psychotropics from initial note. Assessment: Vital Signs/I&O: Vital Signs Date Time Temp Pulse Resp B/P (MAP) Pulse Ox O2 Delivery O2 Flow Rate FiO2 02/12/21 06:21 96.9 62 18 179/70 (106) 94 02/11/21 06:19 Room Air I & O 02/11/21 02/11/21 02/12/21 15:00 23:00 07:00 Intake Total 780 ml 120 ml Balance 780 ml 120 ml Current Medications: Meds: Current Medications Medications (Trade) Dose Ordered Sig/Marguerite Route PRN Reason Start Time Stop Time Status Last Admin Dose Admin Potassium Chloride (Klor-Con) 40 meq 1X ONCE PO 01/04/21 19:00 01/04/21 19:07 DC 01/04/21 19:16 Acetaminophen (Tylenol) 500 mg PRN Q12HR PRN PO PAIN 01/04/21 23:00 Cancel Atorvastatin Calcium (Lipitor) 10 mg QHS PO 01/05/21 21:00 02/11/21 20:30 Furosemide (Lasix) 40 mg DAILY PO 01/05/21 09:00 02/11/21 08:10 Metoprolol Tartrate (Lopressor) 50 mg BID PO 01/05/21 09:00 02/11/21 20:31 Potassium Chloride (Klor-Con) 20 meq DAILY PO 01/05/21 09:00 01/11/21 15:00 DC 01/11/21 08:57 Polyethylene Glycol (miraLAX) 17 gm DAILY PO 01/05/21 09:00 02/11/21 08:09 Lorazepam (Ativan) 1 mg PRN Q4HRS PRN PO ANXIETY / AGITATION 01/04/21 23:00 01/09/21 10:42 DC 01/07/21 23:07 Lorazepam (Ativan Intensol) 1 mg PRN Q6HRS PRN PO ANXIETY / AGITATION 01/04/21 23:00 01/09/21 17:03 DC Risperidone (RisperDAL) 0.25 mg DAILY PO 01/05/21 09:00 01/22/21 17:34 DC 01/22/21 08:35 Risperidone (RisperDAL) 0.5 mg QHS PO 01/05/21 21:00 01/08/21 17:27 DC 01/07/21 20:28 Melatonin (Melatonin) 6 mg HS PO 01/05/21 21:00 01/08/21 17:27 DC 01/07/21 20:28 Acetaminophen (Tylenol) 650 mg PRN Q6HRS PRN PO MILD PAIN / TEMP > 100.3'F 01/04/21 22:45 01/29/21 14:47 Multi-Ingredient Ointment (Analgesic [place]) 1 abby PRN QID PRN TP MUSCLE PAIN 01/04/21 22:45 Al Hydroxide/Mg Hydroxide (Mylanta Plus Xs) 15 ml PRN AFTMEALHC PRN PO DYSPEPSIA 01/04/21 22:45 Magnesium Hydroxide (Milk Of Magnesia) 2,400 mg PRN QHS PRN PO CONSTIPATION 01/04/21 22:45 Potassium Chloride (Klor-Con) 40 meq 1X ONCE PO 01/05/21 15:45 01/05/21 15:49 DC 01/05/21 17:29 Potassium Chloride (Klor-Con) 20 meq BID PO 01/05/21 21:00 02/11/21 20:30 Sertraline HCl (Zoloft) 25 mg DAILY PO 01/07/21 09:00 01/09/21 18:00 DC 01/09/21 08:24 Sertraline HCl (Zoloft) 50 mg DAILY PO 01/10/21 09:00 01/14/21 11:10 DC 01/14/21 08:11 Melatonin (Melatonin) 3 mg HS PO 01/08/21 21:00 02/11/21 20:30 Trazodone HCl (Desyrel) 50 mg PRN QHS PRN PO INSOMNIA MRX1 01/08/21 17:30 02/11/21 01:58 Risperidone (RisperDAL) 1 mg QHS PO 01/08/21 21:00 01/08/21 19:47 DC Olanzapine (ZyPREXA ZYDIS) 2.5 mg PRN Q2HRS PRN PO PSYCHOSIS 01/08/21 19:45 02/11/21 01:58 Risperidone (RisperDAL) 0.5 mg HS PO 01/08/21 21:00 01/08/21 19:58 DC Risperidone (RisperDAL) 0.25 mg HS PO 01/08/21 20:00 01/08/21 20:01 DC Risperidone (RisperDAL) 0.25 mg HS PO 01/08/21 21:00 01/14/21 11:11 DC 01/13/21 20:11 Lorazepam (Ativan Intensol) 0.25 mg PRN Q6HRS PRN PO ANXIETY / AGITATION 01/09/21 17:15 01/09/21 17:46 DC Lorazepam (Ativan Intensol) 0.25 mg PRN TID PRN PO ANXIETY / AGITATION 01/09/21 17:45 01/19/21 17:50 Trazodone HCl (Desyrel) 50 mg 1445 ONCE PO 01/11/21 14:45 01/11/21 14:54 DC Mirtazapine (Remeron) 7.5 mg QHS PO 01/11/21 21:00 01/18/21 19:49 DC 01/17/21 19:38 Sertraline HCl (Zoloft) 75 mg DAILY PO 01/15/21 09:00 01/19/21 17:19 DC 01/19/21 08:14 Risperidone (RisperDAL) 0.5 mg QHS PO 01/14/21 21:00 02/11/21 20:30 Mirtazapine (Remeron Anum-Tab) 15 mg QHS PO 01/18/21 21:00 02/11/21 20:30 Sertraline HCl (Zoloft) 100 mg DAILY PO 01/20/21 09:00 02/11/21 08:11 Divalproex Sodium (Depakote Sprinkles) 125 mg DAILY PO 01/22/21 09:00 02/11/21 08:09 Divalproex Sodium (Depakote Sprinkles) 125 mg DAILYWSUP PO 01/21/21 17:00 02/11/21 17:38 Risperidone (RisperDAL) 0.5 mg DAILY PO 01/23/21 09:00 02/11/21 08:11 I have reviewed the current psychotropics carefully including drug interactions. Risk benefit ratio favors no change other than as noted in my dictated progress note. Diagnosis: Problems: (1) Dementia in Alzheimer's disease with depression (2) Dementia in Alzheimer's disease with delusions (3) Dementia of the Alzheimer's type with early onset with behavioral disturbance (4) Major neurocognitive disorder (5) Impulse control disorder, unspecified (6) Anxiety disorder, unspecified (7) Dementia, vascular, with depression (8) Dementia, vascular, with delusions OFE MONTENEGRO MD Feb 12, 2021 06:37
--- NOTE | 2021-02-12 06:58 | PDOC ---
Exam Note: Devang Note: This note is a late entry for 02/11/2021overs elements not covered in my initial note. Subjective: The patient was seen individually in the morning of 02/11/2021 for a treatment team meeting with Karli Villegas, Alejandra Pena (7th grade social studies teacher), Judith, activity therapy and Dawood RN, discussed and reviewed the chart. The patient slept 8-1/2 hours previous night. She attended one group in the past one week. I met with her in her room. Her roommate is COVID positive and is being transitioned to the medical-surgical floor. The patient seemed oblivious of this. Review of Systems: No CV, , pulmonary, eye system symptoms on review. Reliability poor. Ambulation impaired with walker. Mental Status Exam: The patient is oriented to herself. Insight and judgment, recent and remote memory, attention and concentration is poor consistent with her diagnoses. Laboratory Data: Reviewed. Impression: Major neurocognitive disorder Alzheimer vascular with delusion, depression, and behavioral disturbance. Anxiety disorder unspecified. Impulse control disorder unspecified. Plan: Continue current psychotropics from initial note. Assessment: Vital Signs/I&O: Vital Signs Date Time Temp Pulse Resp B/P (MAP) Pulse Ox O2 Delivery O2 Flow Rate FiO2 02/12/21 06:21 96.9 62 18 179/70 (106) 94 02/11/21 06:19 Room Air I & O 02/11/21 02/11/21 02/12/21 15:00 23:00 07:00 Intake Total 780 ml 120 ml Balance 780 ml 120 ml Current Medications: Meds: Current Medications Medications (Trade) Dose Ordered Sig/Marguerite Route PRN Reason Start Time Stop Time Status Last Admin Dose Admin Potassium Chloride (Klor-Con) 40 meq 1X ONCE PO 01/04/21 19:00 01/04/21 19:07 DC 01/04/21 19:16 Acetaminophen (Tylenol) 500 mg PRN Q12HR PRN PO PAIN 01/04/21 23:00 Cancel Atorvastatin Calcium (Lipitor) 10 mg QHS PO 01/05/21 21:00 02/11/21 20:30 Furosemide (Lasix) 40 mg DAILY PO 01/05/21 09:00 02/11/21 08:10 Metoprolol Tartrate (Lopressor) 50 mg BID PO 01/05/21 09:00 02/11/21 20:31 Potassium Chloride (Klor-Con) 20 meq DAILY PO 01/05/21 09:00 01/11/21 15:00 DC 01/11/21 08:57 Polyethylene Glycol (miraLAX) 17 gm DAILY PO 01/05/21 09:00 02/11/21 08:09 Lorazepam (Ativan) 1 mg PRN Q4HRS PRN PO ANXIETY / AGITATION 01/04/21 23:00 01/09/21 10:42 DC 01/07/21 23:07 Lorazepam (Ativan Intensol) 1 mg PRN Q6HRS PRN PO ANXIETY / AGITATION 01/04/21 23:00 01/09/21 17:03 DC Risperidone (RisperDAL) 0.25 mg DAILY PO 01/05/21 09:00 01/22/21 17:34 DC 01/22/21 08:35 Risperidone (RisperDAL) 0.5 mg QHS PO 01/05/21 21:00 01/08/21 17:27 DC 01/07/21 20:28 Melatonin (Melatonin) 6 mg HS PO 01/05/21 21:00 01/08/21 17:27 DC 01/07/21 20:28 Acetaminophen (Tylenol) 650 mg PRN Q6HRS PRN PO MILD PAIN / TEMP > 100.3'F 01/04/21 22:45 01/29/21 14:47 Multi-Ingredient Ointment (Analgesic [place]) 1 abby PRN QID PRN TP MUSCLE PAIN 01/04/21 22:45 Al Hydroxide/Mg Hydroxide (Mylanta Plus Xs) 15 ml PRN AFTMEALHC PRN PO DYSPEPSIA 01/04/21 22:45 Magnesium Hydroxide (Milk Of Magnesia) 2,400 mg PRN QHS PRN PO CONSTIPATION 01/04/21 22:45 Potassium Chloride (Klor-Con) 40 meq 1X ONCE PO 01/05/21 15:45 01/05/21 15:49 DC 01/05/21 17:29 Potassium Chloride (Klor-Con) 20 meq BID PO 01/05/21 21:00 02/11/21 20:30 Sertraline HCl (Zoloft) 25 mg DAILY PO 01/07/21 09:00 01/09/21 18:00 DC 01/09/21 08:24 Sertraline HCl (Zoloft) 50 mg DAILY PO 01/10/21 09:00 01/14/21 11:10 DC 01/14/21 08:11 Melatonin (Melatonin) 3 mg HS PO 01/08/21 21:00 02/11/21 20:30 Trazodone HCl (Desyrel) 50 mg PRN QHS PRN PO INSOMNIA MRX1 01/08/21 17:30 02/11/21 01:58 Risperidone (RisperDAL) 1 mg QHS PO 01/08/21 21:00 01/08/21 19:47 DC Olanzapine (ZyPREXA ZYDIS) 2.5 mg PRN Q2HRS PRN PO PSYCHOSIS 01/08/21 19:45 02/11/21 01:58 Risperidone (RisperDAL) 0.5 mg HS PO 01/08/21 21:00 01/08/21 19:58 DC Risperidone (RisperDAL) 0.25 mg HS PO 01/08/21 20:00 01/08/21 20:01 DC Risperidone (RisperDAL) 0.25 mg HS PO 01/08/21 21:00 01/14/21 11:11 DC 01/13/21 20:11 Lorazepam (Ativan Intensol) 0.25 mg PRN Q6HRS PRN PO ANXIETY / AGITATION 01/09/21 17:15 01/09/21 17:46 DC Lorazepam (Ativan Intensol) 0.25 mg PRN TID PRN PO ANXIETY / AGITATION 01/09/21 17:45 01/19/21 17:50 Trazodone HCl (Desyrel) 50 mg 1445 ONCE PO 01/11/21 14:45 01/11/21 14:54 DC Mirtazapine (Remeron) 7.5 mg QHS PO 01/11/21 21:00 01/18/21 19:49 DC 01/17/21 19:38 Sertraline HCl (Zoloft) 75 mg DAILY PO 01/15/21 09:00 01/19/21 17:19 DC 01/19/21 08:14 Risperidone (RisperDAL) 0.5 mg QHS PO 01/14/21 21:00 02/11/21 20:30 Mirtazapine (Remeron Anum-Tab) 15 mg QHS PO 01/18/21 21:00 02/11/21 20:30 Sertraline HCl (Zoloft) 100 mg DAILY PO 01/20/21 09:00 02/11/21 08:11 Divalproex Sodium (Depakote Sprinkles) 125 mg DAILY PO 01/22/21 09:00 02/11/21 08:09 Divalproex Sodium (Depakote Sprinkles) 125 mg DAILYWSUP PO 01/21/21 17:00 02/11/21 17:38 Risperidone (RisperDAL) 0.5 mg DAILY PO 01/23/21 09:00 02/11/21 08:11 I have reviewed the current psychotropics carefully including drug interactions. Risk benefit ratio favors no change other than as noted in my dictated progress note. 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
[2021-02-12] MEDS: risperiDONE 0.5 MG TABLET. PO SCH ×2 (08:45→20:36)
[2021-02-12] MEDS: DIVALPROEX 125 MG CAP.SPRINK PO SCH ×2 (08:45→17:24)
[2021-02-12] MEDS: POTASSIUM CHLORIDE 20 MEQ TABLET.ER. PO SCH ×2 (08:45→20:36)
[2021-02-12] MEDS: POLYETHYLENE GLYCOL 3350 17 GM PACKET. PO SCH (08:46)
[2021-02-12] MEDS: METOPROLOL TART IMMED RELEASE 50 MG TABLET PO SCH ×2 (08:46→20:36)
[2021-02-12] MEDS: FUROSEMIDE 40 MG TABLET PO SCH (08:46)
[2021-02-12] MEDS: SERTRALINE 100 MG TABLET. PO SCH (08:46)
[2021-02-12 15:55] VITALS: BP 100/67
[2021-02-12 17:55] LABS: BASO % 0 % (0-3); EOS # 0.2 x10^3/uL (0.0-0.7); EOS % 4 % (0-3); HEMATOCRIT 34.9 % (36.0-47.0); HEMOGLOBIN 11.6 g/dL (12.0-15.5); LYMPH # 1.1 x10^3/uL (1.0-4.8); LYMPH % 20 % (24-48); MEAN CORPUSCULAR HEMOGLOBIN 31 pg (25-35); MEAN CORPUSCULAR HGB CONC 33 g/dL (31-37); MEAN CORPUSCULAR VOLUME 93 fL (79-100); MONO # 0.6 x10^3/uL (0.0-1.1); MONO % 12 % (0-9); NEUT # 3.4 x10^3uL (1.8-7.7); NEUT % 64 % (31-73); PLATELET COUNT 201 x10^3/uL (140-400); RED BLOOD COUNT 3.73 x10^6/uL (3.50-5.40); RED CELL DISTRIBUTION WIDTH 14.2 % (11.5-14.5); WHITE BLOOD COUNT 5.4 x10^3/uL (4.0-11.0)
[2021-02-12 18:11] LABS: ALBUMIN 3.4 g/dL (3.4-5.0); CALCIUM 8.3 mg/dL (8.5-10.1); CREATININE 0.9 mg/dL (0.6-1.0); GFR 59.4; POTASSIUM 3.8 mmol/L (3.5-5.1); TOTAL BILIRUBIN 0.2 mg/dL (0.2-1.0); TOTAL PROTEIN 6.7 g/dL (6.4-8.2)
--- NOTE | 2021-02-12 20:09 | RAD ---
CT head without contrast: Reason for examination: Patient fell and hit the back of her head. Abrasion. Comparison is made to previous study dated 01/04/2021. Helical images were obtained through the brain with no contrast administered. Exposure: One or more of the following individualized dose reduction techniques were utilized for thi s examination: 1. Automated exposure control 2. Adjustment of the mA and/or kV according to patient size 3. Use of iterative reconstruction technique. Ventricular systems are prominent but symmetric consistent with patient's advanced age and generalize d cerebral atrophy. No midline shift is seen. There is no evidence of intracranial hemorrhage, acute infarct, mass or edema. There are some calcified plaque at the vertebral arteries bilaterally. No abn ormalities of seen at the orbits. The paranasal sinuses and mastoid air cells are clear. No acute abn ormality seen in the skull. There is a scalp hematoma at the right parietal convexity. IMPRESSION: No acute intracranial abnormality evident. Cerebral atrophy. Scalp hematoma at the right parietal convexity. Electronically signed by: Liz Rosario MD (02/12/2021 8:06 PM) EITAN
[2021-02-12] MEDS: MIRTAZAPINE ODT 15 MG TAB.RAPDIS. PO SCH (20:36)
[2021-02-12] MEDS: MELATONIN 3 MG TABLET PO SCH (20:36)
[2021-02-12] MEDS: ATORVASTATIN CALCIUM 10 MG TABLET. PO SCH (20:36)
[2021-02-12] MEDS: traZODone 50 MG TABLET. PO PRN (21:14)
--- NOTE | 2021-02-12 22:10 | PDOC ---
Exam Note: Devang Note: Please also refer to the separate dictated note~for this date of service dictated separately.~Patient seen individually. Discussed the patient with Nursing staff reviewed the chart.~Reviewed interim history and current functioning. Reviewed vital signs,~Labs/ Radiology~and current medications noted below. Continue current treatment with the changes noted in the dictated addendum note Assessment: Vital Signs/I&O: Vital Signs Date Time Temp Pulse Resp B/P (MAP) Pulse Ox O2 Delivery O2 Flow Rate FiO2 02/12/21 20:36 70 162/87 02/12/21 15:55 98.0 20 97 02/11/21 06:19 Room Air I & O 02/11/21 02/11/21 02/12/21 15:00 23:00 07:00 Intake Total 780 ml 120 ml Balance 780 ml 120 ml Labs: Laboratory Tests Test 02/12/21 16:45 White Blood Count 5.4 x10^3/uL (4.0-11.0) Red Blood Count 3.73 x10^6/uL (3.50-5.40) Hemoglobin 11.6 g/dL (12.0-15.5) L Hematocrit 34.9 % (36.0-47.0) L Mean Corpuscular Volume 93 fL (79-100) # Mean Corpuscular Hemoglobin 31 pg (25-35) Mean Corpuscular Hemoglobin Concent 33 g/dL (31-37) Red Cell Distribution Width 14.2 % (11.5-14.5) Platelet Count 201 x10^3/uL (140-400) Neutrophils (%) (Auto) 64 % (31-73) Lymphocytes (%) (Auto) 20 % (24-48) L Monocytes (%) (Auto) 12 % (0-9) H Eosinophils (%) (Auto) 4 % (0-3) H Basophils (%) (Auto) 0 % (0-3) Neutrophils # (Auto) 3.4 x10^3uL (1.8-7.7) Lymphocytes # (Auto) 1.1 x10^3/uL (1.0-4.8) Monocytes # (Auto) 0.6 x10^3/uL (0.0-1.1) Eosinophils # (Auto) 0.2 x10^3/uL (0.0-0.7) Basophils # (Auto) 0.0 x10^3/uL (0.0-0.2) Sodium Level 141 mmol/L (136-145) Potassium Level 3.8 mmol/L (3.5-5.1) Chloride Level 105 mmol/L (98-107) Carbon Dioxide Level 28 mmol/L (21-32) Anion Gap 8 (6-14) Blood Urea Nitrogen 25 mg/dL (7-20) H Creatinine 0.9 mg/dL (0.6-1.0) Estimated GFR (Cockcroft-Gault) 59.4 BUN/Creatinine Ratio 28 (6-20) H Glucose Level 102 mg/dL (70-99) H Calcium Level 8.3 mg/dL (8.5-10.1) L Total Bilirubin 0.2 mg/dL (0.2-1.0) Aspartate Amino Transferase (AST) 19 U/L (15-37) Alanine Aminotransferase (ALT) 32 U/L (14-59) Alkaline Phosphatase 66 U/L (46-116) Total Protein 6.7 g/dL (6.4-8.2) Albumin 3.4 g/dL (3.4-5.0) Albumin/Globulin Ratio 1.0 (1.0-1.7) Current Medications: Meds: Laboratory Tests Test 02/12/21 16:45 White Blood Count 5.4 x10^3/uL Red Blood Count 3.73 x10^6/uL Hemoglobin 11.6 g/dL Hematocrit 34.9 % Mean Corpuscular Volume 93 fL Mean Corpuscular Hemoglobin 31 pg Mean Corpuscular Hemoglobin Concent 33 g/dL Red Cell Distribution Width 14.2 % Platelet Count 201 x10^3/uL Neutrophils (%) (Auto) 64 % Lymphocytes (%) (Auto) 20 % Monocytes (%) (Auto) 12 % Eosinophils (%) (Auto) 4 % Basophils (%) (Auto) 0 % Neutrophils # (Auto) 3.4 x10^3uL Lymphocytes # (Auto) 1.1 x10^3/uL Monocytes # (Auto) 0.6 x10^3/uL Eosinophils # (Auto) 0.2 x10^3/uL Basophils # (Auto) 0.0 x10^3/uL Sodium Level 141 mmol/L Potassium Level 3.8 mmol/L Chloride Level 105 mmol/L Carbon Dioxide Level 28 mmol/L Anion Gap 8 Blood Urea Nitrogen 25 mg/dL Creatinine 0.9 mg/dL Estimated GFR (Cockcroft-Gault) 59.4 BUN/Creatinine Ratio 28 Glucose Level 102 mg/dL Calcium Level 8.3 mg/dL Total Bilirubin 0.2 mg/dL Aspartate Amino Transf (AST/SGOT) 19 U/L Alanine Aminotransferase (ALT/SGPT) 32 U/L Alkaline Phosphatase 66 U/L Total Protein 6.7 g/dL Albumin 3.4 g/dL Albumin/Globulin Ratio 1.0 Current Medications Medications (Trade) Dose Ordered Sig/Marguerite Route PRN Reason Start Time Stop Time Status Last Admin Dose Admin Potassium Chloride (Klor-Con) 40 meq 1X ONCE PO 01/04/21 19:00 01/04/21 19:07 DC 01/04/21 19:16 Acetaminophen (Tylenol) 500 mg PRN Q12HR PRN PO PAIN 01/04/21 23:00 Cancel Atorvastatin Calcium (Lipitor) 10 mg QHS PO 01/05/21 21:00 02/12/21 20:36 Furosemide (Lasix) 40 mg DAILY PO 01/05/21 09:00 02/12/21 08:46 Metoprolol Tartrate (Lopressor) 50 mg BID PO 01/05/21 09:00 02/12/21 20:36 Potassium Chloride (Klor-Con) 20 meq DAILY PO 01/05/21 09:00 01/11/21 15:00 DC 01/11/21 08:57 Polyethylene Glycol (miraLAX) 17 gm DAILY PO 01/05/21 09:00 02/12/21 08:46 Lorazepam (Ativan) 1 mg PRN Q4HRS PRN PO ANXIETY / AGITATION 01/04/21 23:00 01/09/21 10:42 DC 01/07/21 23:07 Lorazepam (Ativan Intensol) 1 mg PRN Q6HRS PRN PO ANXIETY / AGITATION 01/04/21 23:00 01/09/21 17:03 DC Risperidone (RisperDAL) 0.25 mg DAILY PO 01/05/21 09:00 01/22/21 17:34 DC 01/22/21 08:35 Risperidone (RisperDAL) 0.5 mg QHS PO 01/05/21 21:00 01/08/21 17:27 DC 01/07/21 20:28 Melatonin (Melatonin) 6 mg HS PO 01/05/21 21:00 01/08/21 17:27 DC 01/07/21 20:28 Acetaminophen (Tylenol) 650 mg PRN Q6HRS PRN PO MILD PAIN / TEMP > 100.3'F 01/04/21 22:45 01/29/21 14:47 Multi-Ingredient Ointment (Analgesic [place]) 1 abby PRN QID PRN TP MUSCLE PAIN 01/04/21 22:45 Al Hydroxide/Mg Hydroxide (Mylanta Plus Xs) 15 ml PRN AFTMEALHC PRN PO DYSPEPSIA 01/04/21 22:45 Magnesium Hydroxide (Milk Of Magnesia) 2,400 mg PRN QHS PRN PO CONSTIPATION 01/04/21 22:45 Potassium Chloride (Klor-Con) 40 meq 1X ONCE PO 01/05/21 15:45 01/05/21 15:49 DC 01/05/21 17:29 Potassium Chloride (Klor-Con) 20 meq BID PO 01/05/21 21:00 02/12/21 20:36 Sertraline HCl (Zoloft) 25 mg DAILY PO 01/07/21 09:00 01/09/21 18:00 DC 01/09/21 08:24 Sertraline HCl (Zoloft) 50 mg DAILY PO 01/10/21 09:00 01/14/21 11:10 DC 01/14/21 08:11 Melatonin (Melatonin) 3 mg HS PO 01/08/21 21:00 02/12/21 20:36 Trazodone HCl (Desyrel) 50 mg PRN QHS PRN PO INSOMNIA MRX1 01/08/21 17:30 02/12/21 21:14 Risperidone (RisperDAL) 1 mg QHS PO 01/08/21 21:00 01/08/21 19:47 DC Olanzapine (ZyPREXA ZYDIS) 2.5 mg PRN Q2HRS PRN PO PSYCHOSIS 01/08/21 19:45 02/11/21 01:58 Risperidone (RisperDAL) 0.5 mg HS PO 01/08/21 21:00 01/08/21 19:58 DC Risperidone (RisperDAL) 0.25 mg HS PO 01/08/21 20:00 01/08/21 20:01 DC Risperidone (RisperDAL) 0.25 mg HS PO 01/08/21 21:00 01/14/21 11:11 DC 01/13/21 20:11 Lorazepam (Ativan Intensol) 0.25 mg PRN Q6HRS PRN PO ANXIETY / AGITATION 01/09/21 17:15 01/09/21 17:46 DC Lorazepam (Ativan Intensol) 0.25 mg PRN TID PRN PO ANXIETY / AGITATION 01/09/21 17:45 01/19/21 17:50 Trazodone HCl (Desyrel) 50 mg 1445 ONCE PO 01/11/21 14:45 01/11/21 14:54 DC Mirtazapine (Remeron) 7.5 mg QHS PO 01/11/21 21:00 01/18/21 19:49 DC 01/17/21 19:38 Sertraline HCl (Zoloft) 75 mg DAILY PO 01/15/21 09:00 01/19/21 17:19 DC 01/19/21 08:14 Risperidone (RisperDAL) 0.5 mg QHS PO 01/14/21 21:00 02/12/21 20:36 Mirtazapine (Remeron Anum-Tab) 15 mg QHS PO 01/18/21 21:00 02/12/21 20:36 Sertraline HCl (Zoloft) 100 mg DAILY PO 01/20/21 09:00 02/12/21 08:46 Divalproex Sodium (Depakote Sprinkles) 125 mg DAILY PO 01/22/21 09:00 02/12/21 08:45 Divalproex Sodium (Depakote Sprinkles) 125 mg DAILYWSUP PO 01/21/21 17:00 02/12/21 17:24 Risperidone (RisperDAL) 0.5 mg DAILY PO 01/23/21 09:00 02/12/21 08:45 I have reviewed the current psychotropics carefully including drug interactions. Risk benefit ratio favors no change other than as noted in my dictated progress note. Diagnosis: Problems: (1) Dementia in Alzheimer's disease with depression (2) Dementia in Alzheimer's disease with delusions (3) Dementia of the Alzheimer's type with early onset with behavioral disturbance (4) Major neurocognitive disorder (5) Impulse control disorder, unspecified (6) Anxiety disorder, unspecified (7) Dementia, vascular, with depression (8) Dementia, vascular, with delusions OFE MONTENEGRO MD Feb 12, 2021 22:10
[2021-02-13 05:24] VITALS: BP 137/71
--- NOTE | 2021-02-13 07:08 | PDOC ---
Exam Note: Devang Note: This note is a late entry for 02/12/2021overs elements not covered in my initial note. Subjective: The patient was seen on telehealth rounds in the evening of 02/12/2021 due to COVID-19 exposure on the unit with Mónica MARIANO, discussed and reviewed the chart. The patient slept 7-1/4 hours previous night. The patient seemed oblivious of her surroundings. Review of Systems: No CV, , pulmonary, eye system symptoms on review. Reliability poor. Ambulation impaired with walker. Mental Status Exam: The patient is oriented to herself. Insight and judgment, recent and remote memory, attention and concentration is poor consistent with her diagnoses. Laboratory Data: Reviewed. Impression: Major neurocognitive disorder Alzheimer vascular with delusion, depression, and behavioral disturbance. Anxiety disorder unspecified. Impulse control disorder unspecified. Plan: Continue current psychotropics from initial note. Assessment: Vital Signs/I&O: Vital Signs Date Time Temp Pulse Resp B/P (MAP) Pulse Ox O2 Delivery O2 Flow Rate FiO2 02/13/21 05:24 98.0 66 18 137/71 (93) 93 02/11/21 06:19 Room Air I & O 02/12/21 02/12/21 02/13/21 15:00 23:00 07:00 Intake Total 560 ml 560 ml Balance 560 ml 560 ml Labs: Laboratory Tests Test 02/12/21 16:45 White Blood Count 5.4 x10^3/uL (4.0-11.0) Red Blood Count 3.73 x10^6/uL (3.50-5.40) Hemoglobin 11.6 g/dL (12.0-15.5) L Hematocrit 34.9 % (36.0-47.0) L Mean Corpuscular Volume 93 fL (79-100) # Mean Corpuscular Hemoglobin 31 pg (25-35) Mean Corpuscular Hemoglobin Concent 33 g/dL (31-37) Red Cell Distribution Width 14.2 % (11.5-14.5) Platelet Count 201 x10^3/uL (140-400) Neutrophils (%) (Auto) 64 % (31-73) Lymphocytes (%) (Auto) 20 % (24-48) L Monocytes (%) (Auto) 12 % (0-9) H Eosinophils (%) (Auto) 4 % (0-3) H Basophils (%) (Auto) 0 % (0-3) Neutrophils # (Auto) 3.4 x10^3uL (1.8-7.7) Lymphocytes # (Auto) 1.1 x10^3/uL (1.0-4.8) Monocytes # (Auto) 0.6 x10^3/uL (0.0-1.1) Eosinophils # (Auto) 0.2 x10^3/uL (0.0-0.7) Basophils # (Auto) 0.0 x10^3/uL (0.0-0.2) Sodium Level 141 mmol/L (136-145) Potassium Level 3.8 mmol/L (3.5-5.1) Chloride Level 105 mmol/L (98-107) Carbon Dioxide Level 28 mmol/L (21-32) Anion Gap 8 (6-14) Blood Urea Nitrogen 25 mg/dL (7-20) H Creatinine 0.9 mg/dL (0.6-1.0) Estimated GFR (Cockcroft-Gault) 59.4 BUN/Creatinine Ratio 28 (6-20) H Glucose Level 102 mg/dL (70-99) H Calcium Level 8.3 mg/dL (8.5-10.1) L Total Bilirubin 0.2 mg/dL (0.2-1.0) Aspartate Amino Transferase (AST) 19 U/L (15-37) Alanine Aminotransferase (ALT) 32 U/L (14-59) Alkaline Phosphatase 66 U/L (46-116) Total Protein 6.7 g/dL (6.4-8.2) Albumin 3.4 g/dL (3.4-5.0) Albumin/Globulin Ratio 1.0 (1.0-1.7) Current Medications: Meds: Laboratory Tests Test 02/12/21 16:45 White Blood Count 5.4 x10^3/uL Red Blood Count 3.73 x10^6/uL Hemoglobin 11.6 g/dL Hematocrit 34.9 % Mean Corpuscular Volume 93 fL Mean Corpuscular Hemoglobin 31 pg Mean Corpuscular Hemoglobin Concent 33 g/dL Red Cell Distribution Width 14.2 % Platelet Count 201 x10^3/uL Neutrophils (%) (Auto) 64 % Lymphocytes (%) (Auto) 20 % Monocytes (%) (Auto) 12 % Eosinophils (%) (Auto) 4 % Basophils (%) (Auto) 0 % Neutrophils # (Auto) 3.4 x10^3uL Lymphocytes # (Auto) 1.1 x10^3/uL Monocytes # (Auto) 0.6 x10^3/uL Eosinophils # (Auto) 0.2 x10^3/uL Basophils # (Auto) 0.0 x10^3/uL Sodium Level 141 mmol/L Potassium Level 3.8 mmol/L Chloride Level 105 mmol/L Carbon Dioxide Level 28 mmol/L Anion Gap 8 Blood Urea Nitrogen 25 mg/dL Creatinine 0.9 mg/dL Estimated GFR (Cockcroft-Gault) 59.4 BUN/Creatinine Ratio 28 Glucose Level 102 mg/dL Calcium Level 8.3 mg/dL Total Bilirubin 0.2 mg/dL Aspartate Amino Transf (AST/SGOT) 19 U/L Alanine Aminotransferase (ALT/SGPT) 32 U/L Alkaline Phosphatase 66 U/L Total Protein 6.7 g/dL Albumin 3.4 g/dL Albumin/Globulin Ratio 1.0 Current Medications Medications (Trade) Dose Ordered Sig/Marguerite Route PRN Reason Start Time Stop Time Status Last Admin Dose Admin Potassium Chloride (Klor-Con) 40 meq 1X ONCE PO 01/04/21 19:00 01/04/21 19:07 DC 01/04/21 19:16 Acetaminophen (Tylenol) 500 mg PRN Q12HR PRN PO PAIN 01/04/21 23:00 Cancel Atorvastatin Calcium (Lipitor) 10 mg QHS PO 01/05/21 21:00 02/12/21 20:36 Furosemide (Lasix) 40 mg DAILY PO 01/05/21 09:00 02/12/21 08:46 Metoprolol Tartrate (Lopressor) 50 mg BID PO 01/05/21 09:00 02/12/21 20:36 Potassium Chloride (Klor-Con) 20 meq DAILY PO 01/05/21 09:00 01/11/21 15:00 DC 01/11/21 08:57 Polyethylene Glycol (miraLAX) 17 gm DAILY PO 01/05/21 09:00 02/12/21 08:46 Lorazepam (Ativan) 1 mg PRN Q4HRS PRN PO ANXIETY / AGITATION 01/04/21 23:00 01/09/21 10:42 DC 01/07/21 23:07 Lorazepam (Ativan Intensol) 1 mg PRN Q6HRS PRN PO ANXIETY / AGITATION 01/04/21 23:00 01/09/21 17:03 DC Risperidone (RisperDAL) 0.25 mg DAILY PO 01/05/21 09:00 01/22/21 17:34 DC 01/22/21 08:35 Risperidone (RisperDAL) 0.5 mg QHS PO 01/05/21 21:00 01/08/21 17:27 DC 01/07/21 20:28 Melatonin (Melatonin) 6 mg HS PO 01/05/21 21:00 01/08/21 17:27 DC 01/07/21 20:28 Acetaminophen (Tylenol) 650 mg PRN Q6HRS PRN PO MILD PAIN / TEMP > 100.3'F 01/04/21 22:45 01/29/21 14:47 Multi-Ingredient Ointment (Analgesic [place]) 1 abby PRN QID PRN TP MUSCLE PAIN 01/04/21 22:45 Al Hydroxide/Mg Hydroxide (Mylanta Plus Xs) 15 ml PRN AFTMEALHC PRN PO DYSPEPSIA 01/04/21 22:45 Magnesium Hydroxide (Milk Of Magnesia) 2,400 mg PRN QHS PRN PO CONSTIPATION 01/04/21 22:45 Potassium Chloride (Klor-Con) 40 meq 1X ONCE PO 01/05/21 15:45 01/05/21 15:49 DC 01/05/21 17:29 Potassium Chloride (Klor-Con) 20 meq BID PO 01/05/21 21:00 02/12/21 20:36 Sertraline HCl (Zoloft) 25 mg DAILY PO 01/07/21 09:00 01/09/21 18:00 DC 01/09/21 08:24 Sertraline HCl (Zoloft) 50 mg DAILY PO 01/10/21 09:00 01/14/21 11:10 DC 01/14/21 08:11 Melatonin (Melatonin) 3 mg HS PO 01/08/21 21:00 02/12/21 20:36 Trazodone HCl (Desyrel) 50 mg PRN QHS PRN PO INSOMNIA MRX1 01/08/21 17:30 02/12/21 21:14 Risperidone (RisperDAL) 1 mg QHS PO 01/08/21 21:00 01/08/21 19:47 DC Olanzapine (ZyPREXA ZYDIS) 2.5 mg PRN Q2HRS PRN PO PSYCHOSIS 01/08/21 19:45 02/11/21 01:58 Risperidone (RisperDAL) 0.5 mg HS PO 01/08/21 21:00 01/08/21 19:58 DC Risperidone (RisperDAL) 0.25 mg HS PO 01/08/21 20:00 01/08/21 20:01 DC Risperidone (RisperDAL) 0.25 mg HS PO 01/08/21 21:00 01/14/21 11:11 DC 01/13/21 20:11 Lorazepam (Ativan Intensol) 0.25 mg PRN Q6HRS PRN PO ANXIETY / AGITATION 01/09/21 17:15 01/09/21 17:46 DC Lorazepam (Ativan Intensol) 0.25 mg PRN TID PRN PO ANXIETY / AGITATION 01/09/21 17:45 01/19/21 17:50 Trazodone HCl (Desyrel) 50 mg 1445 ONCE PO 01/11/21 14:45 01/11/21 14:54 DC Mirtazapine (Remeron) 7.5 mg QHS PO 01/11/21 21:00 01/18/21 19:49 DC 01/17/21 19:38 Sertraline HCl (Zoloft) 75 mg DAILY PO 01/15/21 09:00 01/19/21 17:19 DC 01/19/21 08:14 Risperidone (RisperDAL) 0.5 mg QHS PO 01/14/21 21:00 02/12/21 20:36 Mirtazapine (Remeron Anum-Tab) 15 mg QHS PO 01/18/21 21:00 02/12/21 20:36 Sertraline HCl (Zoloft) 100 mg DAILY PO 01/20/21 09:00 02/12/21 08:46 Divalproex Sodium (Depakote Sprinkles) 125 mg DAILY PO 01/22/21 09:00 02/12/21 08:45 Divalproex Sodium (Depakote Sprinkles) 125 mg DAILYWSUP PO 01/21/21 17:00 02/12/21 17:24 Risperidone (RisperDAL) 0.5 mg DAILY PO 01/23/21 09:00 02/12/21 08:45 I have reviewed the current psychotropics carefully including drug interactions. Risk benefit ratio favors no change other than as noted in my dictated progress note. 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
[2021-02-13] MEDS: FUROSEMIDE 40 MG TABLET PO SCH (08:35)
[2021-02-13] MEDS: SERTRALINE 100 MG TABLET. PO SCH (08:35)
[2021-02-13] MEDS: risperiDONE 0.5 MG TABLET. PO SCH ×2 (08:36→20:56)
[2021-02-13] MEDS: METOPROLOL TART IMMED RELEASE 50 MG TABLET PO SCH ×2 (08:36→20:57)
[2021-02-13] MEDS: DIVALPROEX 125 MG CAP.SPRINK PO SCH ×2 (08:36→17:18)
[2021-02-13] MEDS: POLYETHYLENE GLYCOL 3350 17 GM PACKET. PO SCH (08:36)
[2021-02-13] MEDS: POTASSIUM CHLORIDE 20 MEQ TABLET.ER. PO SCH ×2 (08:36→20:57)
[2021-02-13 16:03] VITALS: BP 101/51
[2021-02-13] MEDS: MIRTAZAPINE ODT 15 MG TAB.RAPDIS. PO SCH (20:56)
[2021-02-13] MEDS: MELATONIN 3 MG TABLET PO SCH (20:57)
[2021-02-13] MEDS: ATORVASTATIN CALCIUM 10 MG TABLET. PO SCH (20:57)
[2021-02-14] MEDS: traZODone 50 MG TABLET. PO PRN (02:29)
[2021-02-14] MEDS: POLYETHYLENE GLYCOL 3350 17 GM PACKET. PO SCH (08:24)
[2021-02-14] MEDS: FUROSEMIDE 40 MG TABLET PO SCH (08:25)
[2021-02-14] MEDS: DIVALPROEX 125 MG CAP.SPRINK PO SCH ×2 (08:25→17:33)
[2021-02-14] MEDS: risperiDONE 0.5 MG TABLET. PO SCH ×2 (08:26→20:27)
[2021-02-14] MEDS: METOPROLOL TART IMMED RELEASE 50 MG TABLET PO SCH ×2 (08:26→20:26)
[2021-02-14] MEDS: SERTRALINE 100 MG TABLET. PO SCH (08:26)
[2021-02-14] MEDS: POTASSIUM CHLORIDE 20 MEQ TABLET.ER. PO SCH ×2 (08:27→20:26)
[2021-02-14 11:28] VITALS: BP 118/57
[2021-02-14 15:48] VITALS: BP 115/67
[2021-02-14] MEDS: ATORVASTATIN CALCIUM 10 MG TABLET. PO SCH (20:27)
[2021-02-14] MEDS: MIRTAZAPINE ODT 15 MG TAB.RAPDIS. PO SCH (20:27)
[2021-02-14] MEDS: MELATONIN 3 MG TABLET PO SCH (20:27)
--- NOTE | 2021-02-14 22:04 | PDOC ---
Exam Note: Devang Note: Please also refer to the separate dictated note~for this date of service dictated separately.~Patient seen individually. Discussed the patient with Nursing staff reviewed the chart.~Reviewed interim history and current functioning. Reviewed vital signs,~Labs/ Radiology~and current medications noted below. Continue current treatment with the changes noted in the dictated addendum note Assessment: Vital Signs/I&O: Vital Signs Date Time Temp Pulse Resp B/P (MAP) Pulse Ox O2 Delivery O2 Flow Rate FiO2 02/14/21 20:26 69 115/67 02/14/21 15:48 97.6 16 94 02/11/21 06:19 Room Air I & O 02/13/21 02/13/21 02/14/21 15:00 23:00 07:00 Intake Total 720 ml 480 ml Balance 720 ml 480 ml Current Medications: Meds: Current Medications Medications (Trade) Dose Ordered Sig/Marguerite Route PRN Reason Start Time Stop Time Status Last Admin Dose Admin Potassium Chloride (Klor-Con) 40 meq 1X ONCE PO 01/04/21 19:00 01/04/21 19:07 DC 01/04/21 19:16 Acetaminophen (Tylenol) 500 mg PRN Q12HR PRN PO PAIN 01/04/21 23:00 Cancel Atorvastatin Calcium (Lipitor) 10 mg QHS PO 01/05/21 21:00 02/14/21 20:27 Furosemide (Lasix) 40 mg DAILY PO 01/05/21 09:00 02/14/21 08:25 Metoprolol Tartrate (Lopressor) 50 mg BID PO 01/05/21 09:00 02/14/21 20:26 Potassium Chloride (Klor-Con) 20 meq DAILY PO 01/05/21 09:00 01/11/21 15:00 DC 01/11/21 08:57 Polyethylene Glycol (miraLAX) 17 gm DAILY PO 01/05/21 09:00 02/14/21 08:24 Lorazepam (Ativan) 1 mg PRN Q4HRS PRN PO ANXIETY / AGITATION 01/04/21 23:00 01/09/21 10:42 DC 01/07/21 23:07 Lorazepam (Ativan Intensol) 1 mg PRN Q6HRS PRN PO ANXIETY / AGITATION 01/04/21 23:00 01/09/21 17:03 DC Risperidone (RisperDAL) 0.25 mg DAILY PO 01/05/21 09:00 01/22/21 17:34 DC 01/22/21 08:35 Risperidone (RisperDAL) 0.5 mg QHS PO 01/05/21 21:00 01/08/21 17:27 DC 01/07/21 20:28 Melatonin (Melatonin) 6 mg HS PO 01/05/21 21:00 01/08/21 17:27 DC 01/07/21 20:28 Acetaminophen (Tylenol) 650 mg PRN Q6HRS PRN PO MILD PAIN / TEMP > 100.3'F 01/04/21 22:45 01/29/21 14:47 Multi-Ingredient Ointment (Analgesic [place]) 1 abby PRN QID PRN TP MUSCLE PAIN 01/04/21 22:45 Al Hydroxide/Mg Hydroxide (Mylanta Plus Xs) 15 ml PRN AFTMEALHC PRN PO DYSPEPSIA 01/04/21 22:45 Magnesium Hydroxide (Milk Of Magnesia) 2,400 mg PRN QHS PRN PO CONSTIPATION 01/04/21 22:45 Potassium Chloride (Klor-Con) 40 meq 1X ONCE PO 01/05/21 15:45 01/05/21 15:49 DC 01/05/21 17:29 Potassium Chloride (Klor-Con) 20 meq BID PO 01/05/21 21:00 02/14/21 20:26 Sertraline HCl (Zoloft) 25 mg DAILY PO 01/07/21 09:00 01/09/21 18:00 DC 01/09/21 08:24 Sertraline HCl (Zoloft) 50 mg DAILY PO 01/10/21 09:00 01/14/21 11:10 DC 01/14/21 08:11 Melatonin (Melatonin) 3 mg HS PO 01/08/21 21:00 02/14/21 20:27 Trazodone HCl (Desyrel) 50 mg PRN QHS PRN PO INSOMNIA MRX1 01/08/21 17:30 02/14/21 02:29 Risperidone (RisperDAL) 1 mg QHS PO 01/08/21 21:00 01/08/21 19:47 DC Olanzapine (ZyPREXA ZYDIS) 2.5 mg PRN Q2HRS PRN PO PSYCHOSIS 01/08/21 19:45 02/11/21 01:58 Risperidone (RisperDAL) 0.5 mg HS PO 01/08/21 21:00 01/08/21 19:58 DC Risperidone (RisperDAL) 0.25 mg HS PO 01/08/21 20:00 01/08/21 20:01 DC Risperidone (RisperDAL) 0.25 mg HS PO 01/08/21 21:00 01/14/21 11:11 DC 01/13/21 20:11 Lorazepam (Ativan Intensol) 0.25 mg PRN Q6HRS PRN PO ANXIETY / AGITATION 01/09/21 17:15 01/09/21 17:46 DC Lorazepam (Ativan Intensol) 0.25 mg PRN TID PRN PO ANXIETY / AGITATION 01/09/21 17:45 01/19/21 17:50 Trazodone HCl (Desyrel) 50 mg 1445 ONCE PO 01/11/21 14:45 01/11/21 14:54 DC Mirtazapine (Remeron) 7.5 mg QHS PO 01/11/21 21:00 01/18/21 19:49 DC 01/17/21 19:38 Sertraline HCl (Zoloft) 75 mg DAILY PO 01/15/21 09:00 01/19/21 17:19 DC 01/19/21 08:14 Risperidone (RisperDAL) 0.5 mg QHS PO 01/14/21 21:00 02/14/21 20:27 Mirtazapine (Remeron Anum-Tab) 15 mg QHS PO 01/18/21 21:00 02/14/21 20:27 Sertraline HCl (Zoloft) 100 mg DAILY PO 01/20/21 09:00 02/14/21 08:26 Divalproex Sodium (Depakote Sprinkles) 125 mg DAILY PO 01/22/21 09:00 02/14/21 08:25 Divalproex Sodium (Depakote Sprinkles) 125 mg DAILYWSUP PO 01/21/21 17:00 02/14/21 17:33 Risperidone (RisperDAL) 0.5 mg DAILY PO 01/23/21 09:00 02/14/21 08:26 I have reviewed the current psychotropics carefully including drug interactions. Risk benefit ratio favors no change other than as noted in my dictated progress note. 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
[2021-02-15 06:23] VITALS: BP 158/70
[2021-02-15] MEDS: DIVALPROEX 125 MG CAP.SPRINK PO SCH ×2 (08:08→17:16)
[2021-02-15] MEDS: POTASSIUM CHLORIDE 20 MEQ TABLET.ER. PO SCH ×2 (08:08→20:22)
[2021-02-15] MEDS: risperiDONE 0.5 MG TABLET. PO SCH ×2 (08:09→20:22)
[2021-02-15] MEDS: POLYETHYLENE GLYCOL 3350 17 GM PACKET. PO SCH (08:09)
[2021-02-15] MEDS: METOPROLOL TART IMMED RELEASE 50 MG TABLET PO SCH ×2 (08:09→20:21)
[2021-02-15] MEDS: FUROSEMIDE 40 MG TABLET PO SCH (08:09)
[2021-02-15] MEDS: SERTRALINE 100 MG TABLET. PO SCH (08:13)
[2021-02-15 16:00] VITALS: BP 124/55
[2021-02-15] MEDS: MELATONIN 3 MG TABLET PO SCH (20:21)
[2021-02-15] MEDS: MIRTAZAPINE ODT 15 MG TAB.RAPDIS. PO SCH (20:22)
[2021-02-15] MEDS: ATORVASTATIN CALCIUM 10 MG TABLET. PO SCH (20:22)
--- NOTE | 2021-02-15 21:54 | PDOC ---
Exam Note: Devang Note: Please also refer to the separate dictated note~for this date of service dictated separately.~Patient seen individually. Discussed the patient with Nursing staff reviewed the chart.~Reviewed interim history and current functioning. Reviewed vital signs,~Labs/ Radiology~and current medications noted below. Continue current treatment with the changes noted in the dictated addendum note Assessment: Vital Signs/I&O: Vital Signs Date Time Temp Pulse Resp B/P (MAP) Pulse Ox O2 Delivery O2 Flow Rate FiO2 02/15/21 20:21 75 124/55 02/15/21 16:00 98.0 16 92 02/11/21 06:19 Room Air I & O 02/14/21 02/14/21 02/15/21 15:00 23:00 07:00 Intake Total 720 ml 240 ml Balance 720 ml 240 ml Current Medications: Meds: Current Medications Medications (Trade) Dose Ordered Sig/Marguerite Route PRN Reason Start Time Stop Time Status Last Admin Dose Admin Potassium Chloride (Klor-Con) 40 meq 1X ONCE PO 01/04/21 19:00 01/04/21 19:07 DC 01/04/21 19:16 Acetaminophen (Tylenol) 500 mg PRN Q12HR PRN PO PAIN 01/04/21 23:00 Cancel Atorvastatin Calcium (Lipitor) 10 mg QHS PO 01/05/21 21:00 02/15/21 20:22 Furosemide (Lasix) 40 mg DAILY PO 01/05/21 09:00 02/15/21 08:09 Metoprolol Tartrate (Lopressor) 50 mg BID PO 01/05/21 09:00 02/15/21 20:21 Potassium Chloride (Klor-Con) 20 meq DAILY PO 01/05/21 09:00 01/11/21 15:00 DC 01/11/21 08:57 Polyethylene Glycol (miraLAX) 17 gm DAILY PO 01/05/21 09:00 02/15/21 08:09 Lorazepam (Ativan) 1 mg PRN Q4HRS PRN PO ANXIETY / AGITATION 01/04/21 23:00 01/09/21 10:42 DC 01/07/21 23:07 Lorazepam (Ativan Intensol) 1 mg PRN Q6HRS PRN PO ANXIETY / AGITATION 01/04/21 23:00 01/09/21 17:03 DC Risperidone (RisperDAL) 0.25 mg DAILY PO 01/05/21 09:00 01/22/21 17:34 DC 01/22/21 08:35 Risperidone (RisperDAL) 0.5 mg QHS PO 01/05/21 21:00 01/08/21 17:27 DC 01/07/21 20:28 Melatonin (Melatonin) 6 mg HS PO 01/05/21 21:00 01/08/21 17:27 DC 01/07/21 20:28 Acetaminophen (Tylenol) 650 mg PRN Q6HRS PRN PO MILD PAIN / TEMP > 100.3'F 01/04/21 22:45 01/29/21 14:47 Multi-Ingredient Ointment (Analgesic [place]) 1 abby PRN QID PRN TP MUSCLE PAIN 01/04/21 22:45 Al Hydroxide/Mg Hydroxide (Mylanta Plus Xs) 15 ml PRN AFTMEALHC PRN PO DYSPEPSIA 01/04/21 22:45 Magnesium Hydroxide (Milk Of Magnesia) 2,400 mg PRN QHS PRN PO CONSTIPATION 01/04/21 22:45 Potassium Chloride (Klor-Con) 40 meq 1X ONCE PO 01/05/21 15:45 01/05/21 15:49 DC 01/05/21 17:29 Potassium Chloride (Klor-Con) 20 meq BID PO 01/05/21 21:00 02/15/21 20:22 Sertraline HCl (Zoloft) 25 mg DAILY PO 01/07/21 09:00 01/09/21 18:00 DC 01/09/21 08:24 Sertraline HCl (Zoloft) 50 mg DAILY PO 01/10/21 09:00 01/14/21 11:10 DC 01/14/21 08:11 Melatonin (Melatonin) 3 mg HS PO 01/08/21 21:00 02/15/21 20:21 Trazodone HCl (Desyrel) 50 mg PRN QHS PRN PO INSOMNIA MRX1 01/08/21 17:30 02/14/21 02:29 Risperidone (RisperDAL) 1 mg QHS PO 01/08/21 21:00 01/08/21 19:47 DC Olanzapine (ZyPREXA ZYDIS) 2.5 mg PRN Q2HRS PRN PO PSYCHOSIS 01/08/21 19:45 02/11/21 01:58 Risperidone (RisperDAL) 0.5 mg HS PO 01/08/21 21:00 01/08/21 19:58 DC Risperidone (RisperDAL) 0.25 mg HS PO 01/08/21 20:00 01/08/21 20:01 DC Risperidone (RisperDAL) 0.25 mg HS PO 01/08/21 21:00 01/14/21 11:11 DC 01/13/21 20:11 Lorazepam (Ativan Intensol) 0.25 mg PRN Q6HRS PRN PO ANXIETY / AGITATION 01/09/21 17:15 01/09/21 17:46 DC Lorazepam (Ativan Intensol) 0.25 mg PRN TID PRN PO ANXIETY / AGITATION 01/09/21 17:45 01/19/21 17:50 Trazodone HCl (Desyrel) 50 mg 1445 ONCE PO 01/11/21 14:45 01/11/21 14:54 DC Mirtazapine (Remeron) 7.5 mg QHS PO 01/11/21 21:00 01/18/21 19:49 DC 01/17/21 19:38 Sertraline HCl (Zoloft) 75 mg DAILY PO 01/15/21 09:00 01/19/21 17:19 DC 01/19/21 08:14 Risperidone (RisperDAL) 0.5 mg QHS PO 01/14/21 21:00 02/15/21 20:22 Mirtazapine (Remeron Anum-Tab) 15 mg QHS PO 01/18/21 21:00 02/15/21 20:22 Sertraline HCl (Zoloft) 100 mg DAILY PO 01/20/21 09:00 02/15/21 08:13 Divalproex Sodium (Depakote Sprinkles) 125 mg DAILY PO 01/22/21 09:00 02/15/21 08:08 Divalproex Sodium (Depakote Sprinkles) 125 mg DAILYWSUP PO 01/21/21 17:00 02/15/21 17:16 Risperidone (RisperDAL) 0.5 mg DAILY PO 01/23/21 09:00 02/15/21 08:09 I have reviewed the current psychotropics carefully including drug interactions. Risk benefit ratio favors no change other than as noted in my dictated progress note. 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
[2021-02-16 05:51] VITALS: BP 147/74
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
[2021-02-16] MEDS: risperiDONE 0.5 MG TABLET. PO SCH ×2 (08:25→20:28)
[2021-02-16] MEDS: POTASSIUM CHLORIDE 20 MEQ TABLET.ER. PO SCH ×2 (08:25→20:27)
[2021-02-16] MEDS: SERTRALINE 100 MG TABLET. PO SCH (08:25)
[2021-02-16] MEDS: FUROSEMIDE 40 MG TABLET PO SCH (08:25)
[2021-02-16] MEDS: DIVALPROEX 125 MG CAP.SPRINK PO SCH ×2 (08:25→16:14)
[2021-02-16] MEDS: METOPROLOL TART IMMED RELEASE 50 MG TABLET PO SCH ×2 (08:25→20:28)
[2021-02-16] MEDS: POLYETHYLENE GLYCOL 3350 17 GM PACKET. PO SCH (08:26)
[2021-02-16 16:11] VITALS: BP 126/72
[2021-02-16] MEDS: ATORVASTATIN CALCIUM 10 MG TABLET. PO SCH (20:27)
[2021-02-16] MEDS: MIRTAZAPINE ODT 15 MG TAB.RAPDIS. PO SCH (20:28)
[2021-02-16] MEDS: MELATONIN 3 MG TABLET PO SCH (20:28)
--- NOTE | 2021-02-16 21:56 | PDOC ---
Exam Note: Devang Note: Please also refer to the separate dictated note~for this date of service dictated separately.~Patient seen individually. Discussed the patient with Nursing staff reviewed the chart.~Reviewed interim history and current functioning. Reviewed vital signs,~Labs/ Radiology~and current medications noted below. Continue current treatment with the changes noted in the dictated addendum note Assessment: Vital Signs/I&O: Vital Signs Date Time Temp Pulse Resp B/P (MAP) Pulse Ox O2 Delivery O2 Flow Rate FiO2 02/16/21 20:28 68 126/72 02/16/21 16:11 97.5 17 96 02/16/21 05:51 Room Air I & O 02/15/21 02/15/21 02/16/21 14:59 22:59 06:59 Intake Total 720 ml 600 ml Balance 720 ml 600 ml Current Medications: Meds: Current Medications Medications (Trade) Dose Ordered Sig/Marguerite Route PRN Reason Start Time Stop Time Status Last Admin Dose Admin Potassium Chloride (Klor-Con) 40 meq 1X ONCE PO 01/04/21 19:00 01/04/21 19:07 DC 01/04/21 19:16 Acetaminophen (Tylenol) 500 mg PRN Q12HR PRN PO PAIN 01/04/21 23:00 Cancel Atorvastatin Calcium (Lipitor) 10 mg QHS PO 01/05/21 21:00 02/16/21 20:27 Furosemide (Lasix) 40 mg DAILY PO 01/05/21 09:00 02/16/21 08:25 Metoprolol Tartrate (Lopressor) 50 mg BID PO 01/05/21 09:00 02/16/21 20:28 Potassium Chloride (Klor-Con) 20 meq DAILY PO 01/05/21 09:00 01/11/21 15:00 DC 01/11/21 08:57 Polyethylene Glycol (miraLAX) 17 gm DAILY PO 01/05/21 09:00 02/15/21 08:09 Lorazepam (Ativan) 1 mg PRN Q4HRS PRN PO ANXIETY / AGITATION 01/04/21 23:00 01/09/21 10:42 DC 01/07/21 23:07 Lorazepam (Ativan Intensol) 1 mg PRN Q6HRS PRN PO ANXIETY / AGITATION 01/04/21 23:00 01/09/21 17:03 DC Risperidone (RisperDAL) 0.25 mg DAILY PO 01/05/21 09:00 01/22/21 17:34 DC 01/22/21 08:35 Risperidone (RisperDAL) 0.5 mg QHS PO 01/05/21 21:00 01/08/21 17:27 DC 01/07/21 20:28 Melatonin (Melatonin) 6 mg HS PO 01/05/21 21:00 01/08/21 17:27 DC 01/07/21 20:28 Acetaminophen (Tylenol) 650 mg PRN Q6HRS PRN PO MILD PAIN / TEMP > 100.3'F 01/04/21 22:45 01/29/21 14:47 Multi-Ingredient Ointment (Analgesic [place]) 1 abby PRN QID PRN TP MUSCLE PAIN 01/04/21 22:45 Al Hydroxide/Mg Hydroxide (Mylanta Plus Xs) 15 ml PRN AFTMEALHC PRN PO DYSPEPSIA 01/04/21 22:45 Magnesium Hydroxide (Milk Of Magnesia) 2,400 mg PRN QHS PRN PO CONSTIPATION 01/04/21 22:45 Potassium Chloride (Klor-Con) 40 meq 1X ONCE PO 01/05/21 15:45 01/05/21 15:49 DC 01/05/21 17:29 Potassium Chloride (Klor-Con) 20 meq BID PO 01/05/21 21:00 02/16/21 20:27 Sertraline HCl (Zoloft) 25 mg DAILY PO 01/07/21 09:00 01/09/21 18:00 DC 01/09/21 08:24 Sertraline HCl (Zoloft) 50 mg DAILY PO 01/10/21 09:00 01/14/21 11:10 DC 01/14/21 08:11 Melatonin (Melatonin) 3 mg HS PO 01/08/21 21:00 02/16/21 20:28 Trazodone HCl (Desyrel) 50 mg PRN QHS PRN PO INSOMNIA MRX1 01/08/21 17:30 02/14/21 02:29 Risperidone (RisperDAL) 1 mg QHS PO 01/08/21 21:00 01/08/21 19:47 DC Olanzapine (ZyPREXA ZYDIS) 2.5 mg PRN Q2HRS PRN PO PSYCHOSIS 01/08/21 19:45 02/11/21 01:58 Risperidone (RisperDAL) 0.5 mg HS PO 01/08/21 21:00 01/08/21 19:58 DC Risperidone (RisperDAL) 0.25 mg HS PO 01/08/21 20:00 01/08/21 20:01 DC Risperidone (RisperDAL) 0.25 mg HS PO 01/08/21 21:00 01/14/21 11:11 DC 01/13/21 20:11 Lorazepam (Ativan Intensol) 0.25 mg PRN Q6HRS PRN PO ANXIETY / AGITATION 01/09/21 17:15 01/09/21 17:46 DC Lorazepam (Ativan Intensol) 0.25 mg PRN TID PRN PO ANXIETY / AGITATION 01/09/21 17:45 01/19/21 17:50 Trazodone HCl (Desyrel) 50 mg 1445 ONCE PO 01/11/21 14:45 01/11/21 14:54 DC Mirtazapine (Remeron) 7.5 mg QHS PO 01/11/21 21:00 01/18/21 19:49 DC 01/17/21 19:38 Sertraline HCl (Zoloft) 75 mg DAILY PO 01/15/21 09:00 01/19/21 17:19 DC 01/19/21 08:14 Risperidone (RisperDAL) 0.5 mg QHS PO 01/14/21 21:00 02/16/21 20:28 Mirtazapine (Remeron Anum-Tab) 15 mg QHS PO 01/18/21 21:00 02/16/21 20:28 Sertraline HCl (Zoloft) 100 mg DAILY PO 01/20/21 09:00 02/16/21 08:25 Divalproex Sodium (Depakote Sprinkles) 125 mg DAILY PO 01/22/21 09:00 02/16/21 08:25 Divalproex Sodium (Depakote Sprinkles) 125 mg DAILYWSUP PO 01/21/21 17:00 02/16/21 16:14 Risperidone (RisperDAL) 0.5 mg DAILY PO 01/23/21 09:00 02/16/21 08:25 I have reviewed the current psychotropics carefully including drug interactions. Risk benefit ratio favors no change other than as noted in my dictated progress note. 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
[2021-02-17 05:41] VITALS: BP 159/79
--- NOTE | 2021-02-17 06:50 | PDOC ---
Exam Note: Devang Note: This note is a late entry for 02/16/2021overs elements not covered in my initial note. Subjective: The patient was seen face to face in the evening of 02/16/2021 with Zena MARIANO, discussed and reviewed the chart. The patient slept 7 hours previous night. I met with her in her room. Reportedly custodial is refusing to take her for another week since there was COVID exposure on our unit. She was having loose stools but stool softeners were stopped and loose stools have resolved. Review of Systems: No CV, , pulmonary, eye system symptoms on review. Reli ability poor. Mental Status Exam: The patient is oriented to herself. Insight and judgment, recent and remote memory, attention and concentration is poor consistent with her diagnoses. Laboratory Data: Reviewed. Impression: Major neurocognitive disorder Alzheimer vascular with delusion, depression, and behavioral disturbance. Anxiety disorder unspecified. Impulse control disorder unspecified. Plan: Continue current psychotropics from initial note. Assessment: Vital Signs/I&O: Vital Signs Date Time Temp Pulse Resp B/P (MAP) Pulse Ox O2 Delivery O2 Flow Rate FiO2 02/17/21 05:41 97.1 81 20 159/79 (105) 93 Room Air I & O 02/16/21 02/16/21 02/17/21 15:00 23:00 07:00 Intake Total 720 ml 480 ml Balance 720 ml 480 ml Current Medications: Meds: Current Medications Medications (Trade) Dose Ordered Sig/Marguerite Route PRN Reason Start Time Stop Time Status Last Admin Dose Admin Potassium Chloride (Klor-Con) 40 meq 1X ONCE PO 01/04/21 19:00 01/04/21 19:07 DC 01/04/21 19:16 Acetaminophen (Tylenol) 500 mg PRN Q12HR PRN PO PAIN 01/04/21 23:00 Cancel Atorvastatin Calcium (Lipitor) 10 mg QHS PO 01/05/21 21:00 02/16/21 20:27 Furosemide (Lasix) 40 mg DAILY PO 01/05/21 09:00 02/16/21 08:25 Metoprolol Tartrate (Lopressor) 50 mg BID PO 01/05/21 09:00 02/16/21 20:28 Potassium Chloride (Klor-Con) 20 meq DAILY PO 01/05/21 09:00 01/11/21 15:00 DC 01/11/21 08:57 Polyethylene Glycol (miraLAX) 17 gm DAILY PO 01/05/21 09:00 02/15/21 08:09 Lorazepam (Ativan) 1 mg PRN Q4HRS PRN PO ANXIETY / AGITATION 01/04/21 23:00 01/09/21 10:42 DC 01/07/21 23:07 Lorazepam (Ativan Intensol) 1 mg PRN Q6HRS PRN PO ANXIETY / AGITATION 01/04/21 23:00 01/09/21 17:03 DC Risperidone (RisperDAL) 0.25 mg DAILY PO 01/05/21 09:00 01/22/21 17:34 DC 01/22/21 08:35 Risperidone (RisperDAL) 0.5 mg QHS PO 01/05/21 21:00 01/08/21 17:27 DC 01/07/21 20:28 Melatonin (Melatonin) 6 mg HS PO 01/05/21 21:00 01/08/21 17:27 DC 01/07/21 20:28 Acetaminophen (Tylenol) 650 mg PRN Q6HRS PRN PO MILD PAIN / TEMP > 100.3'F 01/04/21 22:45 01/29/21 14:47 Multi-Ingredient Ointment (Analgesic [place]) 1 abby PRN QID PRN TP MUSCLE PAIN 01/04/21 22:45 Al Hydroxide/Mg Hydroxide (Mylanta Plus Xs) 15 ml PRN AFTMEALHC PRN PO DYSPEPSIA 01/04/21 22:45 Magnesium Hydroxide (Milk Of Magnesia) 2,400 mg PRN QHS PRN PO CONSTIPATION 01/04/21 22:45 Potassium Chloride (Klor-Con) 40 meq 1X ONCE PO 01/05/21 15:45 01/05/21 15:49 DC 01/05/21 17:29 Potassium Chloride (Klor-Con) 20 meq BID PO 01/05/21 21:00 02/16/21 20:27 Sertraline HCl (Zoloft) 25 mg DAILY PO 01/07/21 09:00 01/09/21 18:00 DC 01/09/21 08:24 Sertraline HCl (Zoloft) 50 mg DAILY PO 01/10/21 09:00 01/14/21 11:10 DC 01/14/21 08:11 Melatonin (Melatonin) 3 mg HS PO 01/08/21 21:00 02/16/21 20:28 Trazodone HCl (Desyrel) 50 mg PRN QHS PRN PO INSOMNIA MRX1 01/08/21 17:30 02/14/21 02:29 Risperidone (RisperDAL) 1 mg QHS PO 01/08/21 21:00 01/08/21 19:47 DC Olanzapine (ZyPREXA ZYDIS) 2.5 mg PRN Q2HRS PRN PO PSYCHOSIS 01/08/21 19:45 02/11/21 01:58 Risperidone (RisperDAL) 0.5 mg HS PO 01/08/21 21:00 01/08/21 19:58 DC Risperidone (RisperDAL) 0.25 mg HS PO 01/08/21 20:00 01/08/21 20:01 DC Risperidone (RisperDAL) 0.25 mg HS PO 01/08/21 21:00 01/14/21 11:11 DC 01/13/21 20:11 Lorazepam (Ativan Intensol) 0.25 mg PRN Q6HRS PRN PO ANXIETY / AGITATION 01/09/21 17:15 01/09/21 17:46 DC Lorazepam (Ativan Intensol) 0.25 mg PRN TID PRN PO ANXIETY / AGITATION 01/09/21 17:45 01/19/21 17:50 Trazodone HCl (Desyrel) 50 mg 1445 ONCE PO 01/11/21 14:45 01/11/21 14:54 DC Mirtazapine (Remeron) 7.5 mg QHS PO 01/11/21 21:00 01/18/21 19:49 DC 01/17/21 19:38 Sertraline HCl (Zoloft) 75 mg DAILY PO 01/15/21 09:00 01/19/21 17:19 DC 01/19/21 08:14 Risperidone (RisperDAL) 0.5 mg QHS PO 01/14/21 21:00 02/16/21 20:28 Mirtazapine (Remeron Anum-Tab) 15 mg QHS PO 01/18/21 21:00 02/16/21 20:28 Sertraline HCl (Zoloft) 100 mg DAILY PO 01/20/21 09:00 02/16/21 08:25 Divalproex Sodium (Depakote Sprinkles) 125 mg DAILY PO 01/22/21 09:00 02/16/21 08:25 Divalproex Sodium (Depakote Sprinkles) 125 mg DAILYWSUP PO 01/21/21 17:00 02/16/21 16:14 Risperidone (RisperDAL) 0.5 mg DAILY PO 01/23/21 09:00 02/16/21 08:25 I have reviewed the current psychotropics carefully including drug interactions. Risk benefit ratio favors no change other than as noted in my dictated progress note. 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
[2021-02-17] MEDS: DIVALPROEX 125 MG CAP.SPRINK PO SCH ×2 (08:39→17:14)
[2021-02-17] MEDS: SERTRALINE 100 MG TABLET. PO SCH (08:39)
[2021-02-17] MEDS: POTASSIUM CHLORIDE 20 MEQ TABLET.ER. PO SCH ×2 (08:39→20:44)
[2021-02-17] MEDS: risperiDONE 0.5 MG TABLET. PO SCH ×2 (08:39→20:44)
[2021-02-17] MEDS: METOPROLOL TART IMMED RELEASE 50 MG TABLET PO SCH ×2 (08:40→20:44)
[2021-02-17] MEDS: FUROSEMIDE 40 MG TABLET PO SCH (08:40)
[2021-02-17] MEDS: POLYETHYLENE GLYCOL 3350 17 GM PACKET. PO SCH (08:40)
[2021-02-17 16:06] VITALS: BP 119/68
[2021-02-17] MEDS: ATORVASTATIN CALCIUM 10 MG TABLET. PO SCH (20:44)
[2021-02-17] MEDS: MELATONIN 3 MG TABLET PO SCH (20:44)
[2021-02-17] MEDS: MIRTAZAPINE ODT 15 MG TAB.RAPDIS. PO SCH (20:44)
--- NOTE | 2021-02-17 21:56 | PDOC ---
Exam Note: Devang Note: Please also refer to the separate dictated note~for this date of service dictated separately.~Patient seen individually. Discussed the patient with Nursing staff reviewed the chart.~Reviewed interim history and current functioning. Reviewed vital signs,~Labs/ Radiology~and current medications noted below. Continue current treatment with the changes noted in the dictated addendum note Assessment: Vital Signs/I&O: Vital Signs Date Time Temp Pulse Resp B/P (MAP) Pulse Ox O2 Delivery O2 Flow Rate FiO2 02/17/21 20:44 64 119/68 02/17/21 16:06 98.2 18 96 02/17/21 05:41 Room Air I & O 02/16/21 02/16/21 02/17/21 15:00 23:00 07:00 Intake Total 720 ml 480 ml Balance 720 ml 480 ml Labs: Laboratory Tests Test 02/17/21 10:40 SARS-CoV-2 (PCR) Negative (NEGATIVE) Current Medications: Meds: Laboratory Tests Test 02/17/21 10:40 Coronavirus (COVID-19)(PCR) Negative Current Medications Medications (Trade) Dose Ordered Sig/Marguerite Route PRN Reason Start Time Stop Time Status Last Admin Dose Admin Potassium Chloride (Klor-Con) 40 meq 1X ONCE PO 01/04/21 19:00 01/04/21 19:07 DC 01/04/21 19:16 Acetaminophen (Tylenol) 500 mg PRN Q12HR PRN PO PAIN 01/04/21 23:00 Cancel Atorvastatin Calcium (Lipitor) 10 mg QHS PO 01/05/21 21:00 02/17/21 20:44 Furosemide (Lasix) 40 mg DAILY PO 01/05/21 09:00 02/17/21 08:40 Metoprolol Tartrate (Lopressor) 50 mg BID PO 01/05/21 09:00 02/17/21 20:44 Potassium Chloride (Klor-Con) 20 meq DAILY PO 01/05/21 09:00 01/11/21 15:00 DC 01/11/21 08:57 Polyethylene Glycol (miraLAX) 17 gm DAILY PO 01/05/21 09:00 02/17/21 08:40 Lorazepam (Ativan) 1 mg PRN Q4HRS PRN PO ANXIETY / AGITATION 01/04/21 23:00 01/09/21 10:42 DC 01/07/21 23:07 Lorazepam (Ativan Intensol) 1 mg PRN Q6HRS PRN PO ANXIETY / AGITATION 01/04/21 23:00 01/09/21 17:03 DC Risperidone (RisperDAL) 0.25 mg DAILY PO 01/05/21 09:00 01/22/21 17:34 DC 01/22/21 08:35 Risperidone (RisperDAL) 0.5 mg QHS PO 01/05/21 21:00 01/08/21 17:27 DC 01/07/21 20:28 Melatonin (Melatonin) 6 mg HS PO 01/05/21 21:00 01/08/21 17:27 DC 01/07/21 20:28 Acetaminophen (Tylenol) 650 mg PRN Q6HRS PRN PO MILD PAIN / TEMP > 100.3'F 01/04/21 22:45 01/29/21 14:47 Multi-Ingredient Ointment (Analgesic [place]) 1 abby PRN QID PRN TP MUSCLE PAIN 01/04/21 22:45 Al Hydroxide/Mg Hydroxide (Mylanta Plus Xs) 15 ml PRN AFTMEALHC PRN PO DYSPEPSIA 01/04/21 22:45 Magnesium Hydroxide (Milk Of Magnesia) 2,400 mg PRN QHS PRN PO CONSTIPATION 01/04/21 22:45 Potassium Chloride (Klor-Con) 40 meq 1X ONCE PO 01/05/21 15:45 01/05/21 15:49 DC 01/05/21 17:29 Potassium Chloride (Klor-Con) 20 meq BID PO 01/05/21 21:00 02/17/21 20:44 Sertraline HCl (Zoloft) 25 mg DAILY PO 01/07/21 09:00 01/09/21 18:00 DC 01/09/21 08:24 Sertraline HCl (Zoloft) 50 mg DAILY PO 01/10/21 09:00 01/14/21 11:10 DC 01/14/21 08:11 Melatonin (Melatonin) 3 mg HS PO 01/08/21 21:00 02/17/21 20:44 Trazodone HCl (Desyrel) 50 mg PRN QHS PRN PO INSOMNIA MRX1 01/08/21 17:30 02/14/21 02:29 Risperidone (RisperDAL) 1 mg QHS PO 01/08/21 21:00 01/08/21 19:47 DC Olanzapine (ZyPREXA ZYDIS) 2.5 mg PRN Q2HRS PRN PO PSYCHOSIS 01/08/21 19:45 02/11/21 01:58 Risperidone (RisperDAL) 0.5 mg HS PO 01/08/21 21:00 01/08/21 19:58 DC Risperidone (RisperDAL) 0.25 mg HS PO 01/08/21 20:00 01/08/21 20:01 DC Risperidone (RisperDAL) 0.25 mg HS PO 01/08/21 21:00 01/14/21 11:11 DC 01/13/21 20:11 Lorazepam (Ativan Intensol) 0.25 mg PRN Q6HRS PRN PO ANXIETY / AGITATION 01/09/21 17:15 01/09/21 17:46 DC Lorazepam (Ativan Intensol) 0.25 mg PRN TID PRN PO ANXIETY / AGITATION 01/09/21 17:45 01/19/21 17:50 Trazodone HCl (Desyrel) 50 mg 1445 ONCE PO 01/11/21 14:45 01/11/21 14:54 DC Mirtazapine (Remeron) 7.5 mg QHS PO 01/11/21 21:00 01/18/21 19:49 DC 01/17/21 19:38 Sertraline HCl (Zoloft) 75 mg DAILY PO 01/15/21 09:00 01/19/21 17:19 DC 01/19/21 08:14 Risperidone (RisperDAL) 0.5 mg QHS PO 01/14/21 21:00 02/17/21 20:44 Mirtazapine (Remeron Anum-Tab) 15 mg QHS PO 01/18/21 21:00 02/17/21 20:44 Sertraline HCl (Zoloft) 100 mg DAILY PO 01/20/21 09:00 02/17/21 08:39 Divalproex Sodium (Depakote Sprinkles) 125 mg DAILY PO 01/22/21 09:00 02/17/21 08:39 Divalproex Sodium (Depakote Sprinkles) 125 mg DAILYWSUP PO 01/21/21 17:00 8/4/21 17:14 Risperidone (RisperDAL) 0.5 mg DAILY PO 01/23/21 09:00 02/17/21 08:39 I have reviewed the current psychotropics carefully including drug interactions. Risk benefit ratio favors no change other than as noted in my dictated progress note. 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
[2021-02-18] MEDS: traZODone 50 MG TABLET. PO PRN (01:00)
[2021-02-18 07:01] VITALS: BP 189/81
[2021-02-18] MEDS: METOPROLOL TART IMMED RELEASE 50 MG TABLET PO SCH ×2 (08:07→20:51)
[2021-02-18] MEDS: POLYETHYLENE GLYCOL 3350 17 GM PACKET. PO SCH (08:07)
[2021-02-18] MEDS: POTASSIUM CHLORIDE 20 MEQ TABLET.ER. PO SCH ×2 (08:08→20:52)
[2021-02-18] MEDS: DIVALPROEX 125 MG CAP.SPRINK PO SCH ×2 (08:08→17:56)
[2021-02-18] MEDS: SERTRALINE 100 MG TABLET. PO SCH (08:08)
[2021-02-18] MEDS: FUROSEMIDE 40 MG TABLET PO SCH (08:08)
[2021-02-18] MEDS: risperiDONE 0.5 MG TABLET. PO SCH ×2 (08:08→20:52)
[2021-02-18 15:48] VITALS: BP 108/7
[2021-02-18] MEDS: MELATONIN 3 MG TABLET PO SCH (20:51)
[2021-02-18] MEDS: MIRTAZAPINE ODT 15 MG TAB.RAPDIS. PO SCH (20:52)
[2021-02-18] MEDS: ATORVASTATIN CALCIUM 10 MG TABLET. PO SCH (20:52)
--- NOTE | 2021-02-18 22:14 | PDOC ---
Exam Note: Devang Note: Please also refer to the separate dictated note~for this date of service dictated separately.~Patient seen individually. Discussed the patient with Nursing staff reviewed the chart.~Reviewed interim history and current functioning. Reviewed vital signs,~Labs/ Radiology~and current medications noted below. Continue current treatment with the changes noted in the dictated addendum note Assessment: Vital Signs/I&O: Vital Signs Date Time Temp Pulse Resp B/P (MAP) Pulse Ox O2 Delivery O2 Flow Rate FiO2 02/18/21 20:51 70 108/70 02/18/21 15:48 97.2 18 96 02/18/21 07:01 Room Air I & O 02/17/21 02/17/21 02/18/21 15:00 23:00 07:00 Intake Total 440 ml 480 ml Balance 440 ml 480 ml Current Medications: Meds: Current Medications Medications (Trade) Dose Ordered Sig/Marguerite Route PRN Reason Start Time Stop Time Status Last Admin Dose Admin Potassium Chloride (Klor-Con) 40 meq 1X ONCE PO 01/04/21 19:00 01/04/21 19:07 DC 01/04/21 19:16 Acetaminophen (Tylenol) 500 mg PRN Q12HR PRN PO PAIN 01/04/21 23:00 Cancel Atorvastatin Calcium (Lipitor) 10 mg QHS PO 01/05/21 21:00 02/18/21 20:52 Furosemide (Lasix) 40 mg DAILY PO 01/05/21 09:00 02/18/21 08:08 Metoprolol Tartrate (Lopressor) 50 mg BID PO 01/05/21 09:00 02/18/21 20:51 Potassium Chloride (Klor-Con) 20 meq DAILY PO 01/05/21 09:00 01/11/21 15:00 DC 01/11/21 08:57 Polyethylene Glycol (miraLAX) 17 gm DAILY PO 01/05/21 09:00 02/18/21 08:07 Lorazepam (Ativan) 1 mg PRN Q4HRS PRN PO ANXIETY / AGITATION 01/04/21 23:00 01/09/21 10:42 DC 01/07/21 23:07 Lorazepam (Ativan Intensol) 1 mg PRN Q6HRS PRN PO ANXIETY / AGITATION 01/04/21 23:00 01/09/21 17:03 DC Risperidone (RisperDAL) 0.25 mg DAILY PO 01/05/21 09:00 01/22/21 17:34 DC 01/22/21 08:35 Risperidone (RisperDAL) 0.5 mg QHS PO 01/05/21 21:00 01/08/21 17:27 DC 01/07/21 20:28 Melatonin (Melatonin) 6 mg HS PO 01/05/21 21:00 01/08/21 17:27 DC 01/07/21 20:28 Acetaminophen (Tylenol) 650 mg PRN Q6HRS PRN PO MILD PAIN / TEMP > 100.3'F 01/04/21 22:45 01/29/21 14:47 Multi-Ingredient Ointment (Analgesic [place]) 1 abby PRN QID PRN TP MUSCLE PAIN 01/04/21 22:45 Al Hydroxide/Mg Hydroxide (Mylanta Plus Xs) 15 ml PRN AFTMEALHC PRN PO DYSPEPSIA 01/04/21 22:45 Magnesium Hydroxide (Milk Of Magnesia) 2,400 mg PRN QHS PRN PO CONSTIPATION 01/04/21 22:45 Potassium Chloride (Klor-Con) 40 meq 1X ONCE PO 01/05/21 15:45 01/05/21 15:49 DC 01/05/21 17:29 Potassium Chloride (Klor-Con) 20 meq BID PO 01/05/21 21:00 02/18/21 20:52 Sertraline HCl (Zoloft) 25 mg DAILY PO 01/07/21 09:00 01/09/21 18:00 DC 01/09/21 08:24 Sertraline HCl (Zoloft) 50 mg DAILY PO 01/10/21 09:00 01/14/21 11:10 DC 01/14/21 08:11 Melatonin (Melatonin) 3 mg HS PO 01/08/21 21:00 02/18/21 20:51 Trazodone HCl (Desyrel) 50 mg PRN QHS PRN PO INSOMNIA MRX1 01/08/21 17:30 02/18/21 01:00 Risperidone (RisperDAL) 1 mg QHS PO 01/08/21 21:00 01/08/21 19:47 DC Olanzapine (ZyPREXA ZYDIS) 2.5 mg PRN Q2HRS PRN PO PSYCHOSIS 01/08/21 19:45 02/11/21 01:58 Risperidone (RisperDAL) 0.5 mg HS PO 01/08/21 21:00 01/08/21 19:58 DC Risperidone (RisperDAL) 0.25 mg HS PO 01/08/21 20:00 01/08/21 20:01 DC Risperidone (RisperDAL) 0.25 mg HS PO 01/08/21 21:00 01/14/21 11:11 DC 01/13/21 20:11 Lorazepam (Ativan Intensol) 0.25 mg PRN Q6HRS PRN PO ANXIETY / AGITATION 01/09/21 17:15 01/09/21 17:46 DC Lorazepam (Ativan Intensol) 0.25 mg PRN TID PRN PO ANXIETY / AGITATION 01/09/21 17:45 01/19/21 17:50 Trazodone HCl (Desyrel) 50 mg 1445 ONCE PO 01/11/21 14:45 01/11/21 14:54 DC Mirtazapine (Remeron) 7.5 mg QHS PO 01/11/21 21:00 01/18/21 19:49 DC 01/17/21 19:38 Sertraline HCl (Zoloft) 75 mg DAILY PO 01/15/21 09:00 01/19/21 17:19 DC 01/19/21 08:14 Risperidone (RisperDAL) 0.5 mg QHS PO 01/14/21 21:00 02/18/21 20:52 Mirtazapine (Remeron Anum-Tab) 15 mg QHS PO 01/18/21 21:00 02/18/21 20:52 Sertraline HCl (Zoloft) 100 mg DAILY PO 01/20/21 09:00 02/18/21 08:08 Divalproex Sodium (Depakote Sprinkles) 125 mg DAILY PO 01/22/21 09:00 02/18/21 08:08 Divalproex Sodium (Depakote Sprinkles) 125 mg DAILYWSUP PO 01/21/21 17:00 02/18/21 17:56 Risperidone (RisperDAL) 0.5 mg DAILY PO 01/23/21 09:00 02/18/21 08:08 I have reviewed the current psychotropics carefully including drug interactions. Risk benefit ratio favors no change other than as noted in my dictated progress note. 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
[2021-02-19 06:26] VITALS: BP 174/74
--- NOTE | 2021-02-19 06:46 | PDOC ---
Exam Note: Devang Note: This note is a late entry for 02/17/2021overs elements not covered in my initial note. Subjective: The patient was seen face to face in the evening of 02/17/2021 with Leonardo MARIANO, discussed and reviewed the chart. The patient slept 7 hours previous night. She is compliant with her medications. Placement is not accepting her until next week due to the COVID-19 exposure on our unit. She remains confused but not agitated or aggressive, less psychotic. Review of Systems: No CV, , pulmonary, eye system symptoms on review. Reliability poor. Mental Status Exam: The patient is oriented to herself. Insight and judgment, recent and remote memory, attention and concentration is poor consistent with her diagnoses. Laboratory Data: Reviewed. Impression: Major neurocognitive disorder Alzheimer vascular with delusion, depression, and behavioral disturbance. Anxiety disorder unspecified. Impulse control disorder unspecified. Plan: Continue current psychotropics from initial note. Assessment: Vital Signs/I&O: Vital Signs Date Time Temp Pulse Resp B/P (MAP) Pulse Ox O2 Delivery O2 Flow Rate FiO2 02/19/21 06:26 97.5 67 22 174/74 (107) 95 Room Air I & O 02/18/21 02/18/21 02/19/21 15:00 23:00 07:00 Intake Total 480 ml 240 ml Balance 480 ml 240 ml Current Medications: Meds: Current Medications Medications (Trade) Dose Ordered Sig/Marguerite Route PRN Reason Start Time Stop Time Status Last Admin Dose Admin Potassium Chloride (Klor-Con) 40 meq 1X ONCE PO 01/04/21 19:00 01/04/21 19:07 DC 01/04/21 19:16 Acetaminophen (Tylenol) 500 mg PRN Q12HR PRN PO PAIN 01/04/21 23:00 Cancel Atorvastatin Calcium (Lipitor) 10 mg QHS PO 01/05/21 21:00 02/18/21 20:52 Furosemide (Lasix) 40 mg DAILY PO 01/05/21 09:00 02/18/21 08:08 Metoprolol Tartrate (Lopressor) 50 mg BID PO 01/05/21 09:00 02/18/21 20:51 Potassium Chloride (Klor-Con) 20 meq DAILY PO 01/05/21 09:00 01/11/21 15:00 DC 01/11/21 08:57 Polyethylene Glycol (miraLAX) 17 gm DAILY PO 01/05/21 09:00 02/18/21 08:07 Lorazepam (Ativan) 1 mg PRN Q4HRS PRN PO ANXIETY / AGITATION 01/04/21 23:00 01/09/21 10:42 DC 01/07/21 23:07 Lorazepam (Ativan Intensol) 1 mg PRN Q6HRS PRN PO ANXIETY / AGITATION 01/04/21 23:00 01/09/21 17:03 DC Risperidone (RisperDAL) 0.25 mg DAILY PO 01/05/21 09:00 01/22/21 17:34 DC 01/22/21 08:35 Risperidone (RisperDAL) 0.5 mg QHS PO 01/05/21 21:00 01/08/21 17:27 DC 01/07/21 20:28 Melatonin (Melatonin) 6 mg HS PO 01/05/21 21:00 01/08/21 17:27 DC 01/07/21 20:28 Acetaminophen (Tylenol) 650 mg PRN Q6HRS PRN PO MILD PAIN / TEMP > 100.3'F 01/04/21 22:45 01/29/21 14:47 Multi-Ingredient Ointment (Analgesic [place]) 1 abby PRN QID PRN TP MUSCLE PAIN 01/04/21 22:45 Al Hydroxide/Mg Hydroxide (Mylanta Plus Xs) 15 ml PRN AFTMEALHC PRN PO DYSPEPSIA 01/04/21 22:45 Magnesium Hydroxide (Milk Of Magnesia) 2,400 mg PRN QHS PRN PO CONSTIPATION 01/04/21 22:45 Potassium Chloride (Klor-Con) 40 meq 1X ONCE PO 01/05/21 15:45 01/05/21 15:49 DC 01/05/21 17:29 Potassium Chloride (Klor-Con) 20 meq BID PO 01/05/21 21:00 02/18/21 20:52 Sertraline HCl (Zoloft) 25 mg DAILY PO 01/07/21 09:00 01/09/21 18:00 DC 01/09/21 08:24 Sertraline HCl (Zoloft) 50 mg DAILY PO 01/10/21 09:00 01/14/21 11:10 DC 01/14/21 08:11 Melatonin (Melatonin) 3 mg HS PO 01/08/21 21:00 02/18/21 20:51 Trazodone HCl (Desyrel) 50 mg PRN QHS PRN PO INSOMNIA MRX1 01/08/21 17:30 02/18/21 01:00 Risperidone (RisperDAL) 1 mg QHS PO 01/08/21 21:00 01/08/21 19:47 DC Olanzapine (ZyPREXA ZYDIS) 2.5 mg PRN Q2HRS PRN PO PSYCHOSIS 01/08/21 19:45 02/11/21 01:58 Risperidone (RisperDAL) 0.5 mg HS PO 01/08/21 21:00 01/08/21 19:58 DC Risperidone (RisperDAL) 0.25 mg HS PO 01/08/21 20:00 01/08/21 20:01 DC Risperidone (RisperDAL) 0.25 mg HS PO 01/08/21 21:00 01/14/21 11:11 DC 01/13/21 20:11 Lorazepam (Ativan Intensol) 0.25 mg PRN Q6HRS PRN PO ANXIETY / AGITATION 01/09/21 17:15 01/09/21 17:46 DC Lorazepam (Ativan Intensol) 0.25 mg PRN TID PRN PO ANXIETY / AGITATION 01/09/21 17:45 01/19/21 17:50 Trazodone HCl (Desyrel) 50 mg 1445 ONCE PO 01/11/21 14:45 01/11/21 14:54 DC Mirtazapine (Remeron) 7.5 mg QHS PO 01/11/21 21:00 01/18/21 19:49 DC 01/17/21 19:38 Sertraline HCl (Zoloft) 75 mg DAILY PO 01/15/21 09:00 01/19/21 17:19 DC 01/19/21 08:14 Risperidone (RisperDAL) 0.5 mg QHS PO 01/14/21 21:00 02/18/21 20:52 Mirtazapine (Remeron Anum-Tab) 15 mg QHS PO 01/18/21 21:00 02/18/21 20:52 Sertraline HCl (Zoloft) 100 mg DAILY PO 01/20/21 09:00 02/18/21 08:08 Divalproex Sodium (Depakote Sprinkles) 125 mg DAILY PO 01/22/21 09:00 02/18/21 08:08 Divalproex Sodium (Depakote Sprinkles) 125 mg DAILYWSUP PO 01/21/21 17:00 02/18/21 17:56 Risperidone (RisperDAL) 0.5 mg DAILY PO 01/23/21 09:00 02/18/21 08:08 I have reviewed the current psychotropics carefully including drug interactions. Risk benefit ratio favors no change other than as noted in my dictated progress note. 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
--- NOTE | 2021-02-19 07:08 | PDOC ---
Exam Note: Devang Note: This note is a late entry for 02/18/2021overs elements not covered in my initial note. Subjective: The patient was reviewed at treatment team meeting individually in the morning on 02/18/2021 with Karli Villegas, Alejandra Pena (social media sr strategy manager), Judith, activity therapy and Kaylee RN, discussed and reviewed the chart. The patient slept 8-1/4 hours previous night. I met with her in her room. She remains confused. Review of Systems: No CV, , pulmonary, eye system symptoms on review. Reliability poor. Mental Status Exam: The patient is oriented to herself. Insight and judgment, recent and remote memory, attention and concentration is poor consistent with her diagnoses. Laboratory Data: Reviewed. Impression: Major neurocognitive disorder Alzheimer vascular with delusion, depression, and behavioral disturbance. Anxiety disorder unspecified. Impulse control disorder unspecified. Plan: Continue current psychotropics from initial note. Assessment: Vital Signs/I&O: Vital Signs Date Time Temp Pulse Resp B/P (MAP) Pulse Ox O2 Delivery O2 Flow Rate FiO2 02/19/21 06:26 97.5 67 22 174/74 (107) 95 Room Air I & O 02/18/21 02/18/21 02/19/21 15:00 23:00 07:00 Intake Total 480 ml 240 ml Balance 480 ml 240 ml Current Medications: Meds: Current Medications Medications (Trade) Dose Ordered Sig/Marguerite Route PRN Reason Start Time Stop Time Status Last Admin Dose Admin Potassium Chloride (Klor-Con) 40 meq 1X ONCE PO 01/04/21 19:00 01/04/21 19:07 DC 01/04/21 19:16 Acetaminophen (Tylenol) 500 mg PRN Q12HR PRN PO PAIN 01/04/21 23:00 Cancel Atorvastatin Calcium (Lipitor) 10 mg QHS PO 01/05/21 21:00 02/18/21 20:52 Furosemide (Lasix) 40 mg DAILY PO 01/05/21 09:00 02/18/21 08:08 Metoprolol Tartrate (Lopressor) 50 mg BID PO 01/05/21 09:00 02/18/21 20:51 Potassium Chloride (Klor-Con) 20 meq DAILY PO 01/05/21 09:00 01/11/21 15:00 DC 01/11/21 08:57 Polyethylene Glycol (miraLAX) 17 gm DAILY PO 01/05/21 09:00 02/18/21 08:07 Lorazepam (Ativan) 1 mg PRN Q4HRS PRN PO ANXIETY / AGITATION 01/04/21 23:00 01/09/21 10:42 DC 01/07/21 23:07 Lorazepam (Ativan Intensol) 1 mg PRN Q6HRS PRN PO ANXIETY / AGITATION 01/04/21 23:00 01/09/21 17:03 DC Risperidone (RisperDAL) 0.25 mg DAILY PO 01/05/21 09:00 01/22/21 17:34 DC 01/22/21 08:35 Risperidone (RisperDAL) 0.5 mg QHS PO 01/05/21 21:00 01/08/21 17:27 DC 01/07/21 20:28 Melatonin (Melatonin) 6 mg HS PO 01/05/21 21:00 01/08/21 17:27 DC 01/07/21 20:28 Acetaminophen (Tylenol) 650 mg PRN Q6HRS PRN PO MILD PAIN / TEMP > 100.3'F 01/04/21 22:45 01/29/21 14:47 Multi-Ingredient Ointment (Analgesic [place]) 1 abby PRN QID PRN TP MUSCLE PAIN 01/04/21 22:45 Al Hydroxide/Mg Hydroxide (Mylanta Plus Xs) 15 ml PRN AFTMEALHC PRN PO DYSPEPSIA 01/04/21 22:45 Magnesium Hydroxide (Milk Of Magnesia) 2,400 mg PRN QHS PRN PO CONSTIPATION 01/04/21 22:45 Potassium Chloride (Klor-Con) 40 meq 1X ONCE PO 01/05/21 15:45 01/05/21 15:49 DC 01/05/21 17:29 Potassium Chloride (Klor-Con) 20 meq BID PO 01/05/21 21:00 02/18/21 20:52 Sertraline HCl (Zoloft) 25 mg DAILY PO 01/07/21 09:00 01/09/21 18:00 DC 01/09/21 08:24 Sertraline HCl (Zoloft) 50 mg DAILY PO 01/10/21 09:00 01/14/21 11:10 DC 01/14/21 08:11 Melatonin (Melatonin) 3 mg HS PO 01/08/21 21:00 02/18/21 20:51 Trazodone HCl (Desyrel) 50 mg PRN QHS PRN PO INSOMNIA MRX1 01/08/21 17:30 02/18/21 01:00 Risperidone (RisperDAL) 1 mg QHS PO 01/08/21 21:00 01/08/21 19:47 DC Olanzapine (ZyPREXA ZYDIS) 2.5 mg PRN Q2HRS PRN PO PSYCHOSIS 01/08/21 19:45 02/11/21 01:58 Risperidone (RisperDAL) 0.5 mg HS PO 01/08/21 21:00 01/08/21 19:58 DC Risperidone (RisperDAL) 0.25 mg HS PO 01/08/21 20:00 01/08/21 20:01 DC Risperidone (RisperDAL) 0.25 mg HS PO 01/08/21 21:00 01/14/21 11:11 DC 01/13/21 20:11 Lorazepam (Ativan Intensol) 0.25 mg PRN Q6HRS PRN PO ANXIETY / AGITATION 01/09/21 17:15 01/09/21 17:46 DC Lorazepam (Ativan Intensol) 0.25 mg PRN TID PRN PO ANXIETY / AGITATION 01/09/21 17:45 01/19/21 17:50 Trazodone HCl (Desyrel) 50 mg 1445 ONCE PO 01/11/21 14:45 01/11/21 14:54 DC Mirtazapine (Remeron) 7.5 mg QHS PO 01/11/21 21:00 01/18/21 19:49 DC 01/17/21 19:38 Sertraline HCl (Zoloft) 75 mg DAILY PO 01/15/21 09:00 01/19/21 17:19 DC 01/19/21 08:14 Risperidone (RisperDAL) 0.5 mg QHS PO 01/14/21 21:00 02/18/21 20:52 Mirtazapine (Remeron Anum-Tab) 15 mg QHS PO 01/18/21 21:00 02/18/21 20:52 Sertraline HCl (Zoloft) 100 mg DAILY PO 01/20/21 09:00 02/18/21 08:08 Divalproex Sodium (Depakote Sprinkles) 125 mg DAILY PO 01/22/21 09:00 02/18/21 08:08 Divalproex Sodium (Depakote Sprinkles) 125 mg DAILYWSUP PO 01/21/21 17:00 02/18/21 17:56 Risperidone (RisperDAL) 0.5 mg DAILY PO 01/23/21 09:00 02/18/21 08:08 I have reviewed the current psychotropics carefully including drug interactions. Risk benefit ratio favors no change other than as noted in my dictated progress note. 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
[2021-02-19 07:44] LABS: BASO % 1 % (0-3); EOS # 0.3 x10^3/uL (0.0-0.7); EOS % 8 % (0-3); HEMATOCRIT 34.7 % (36.0-47.0); HEMOGLOBIN 11.6 g/dL (12.0-15.5); LYMPH # 0.8 x10^3/uL (1.0-4.8); LYMPH % 24 % (24-48); MEAN CORPUSCULAR HEMOGLOBIN 33 pg (25-35); MEAN CORPUSCULAR HGB CONC 33 g/dL (31-37); MEAN CORPUSCULAR VOLUME 99 fL (79-100); MONO # 0.5 x10^3/uL (0.0-1.1); MONO % 16 % (0-9); NEUT # 1.8 x10^3uL (1.8-7.7); NEUT % 52 % (31-73); PLATELET COUNT 206 x10^3/uL (140-400); RED BLOOD COUNT 3.49 x10^6/uL (3.50-5.40); RED CELL DISTRIBUTION WIDTH 14.4 % (11.5-14.5); WHITE BLOOD COUNT 3.5 x10^3/uL (4.0-11.0)
[2021-02-19 07:57] LABS: ALBUMIN 3.4 g/dL (3.4-5.0); ALBUMIN/GLOBULIN RATIO 0.9 (1.0-1.7); CALCIUM 9.1 mg/dL (8.5-10.1); CREATININE 0.8 mg/dL (0.6-1.0); TOTAL BILIRUBIN 0.3 mg/dL (0.2-1.0); TOTAL PROTEIN 7.2 g/dL (6.4-8.2)
[2021-02-19] MEDS: DIVALPROEX 125 MG CAP.SPRINK PO SCH ×2 (08:12→16:25)
[2021-02-19] MEDS: FUROSEMIDE 40 MG TABLET PO SCH (08:12)
[2021-02-19] MEDS: risperiDONE 0.5 MG TABLET. PO SCH ×2 (08:13→21:31)
[2021-02-19] MEDS: POTASSIUM CHLORIDE 20 MEQ TABLET.ER. PO SCH ×2 (08:13→21:31)
[2021-02-19] MEDS: METOPROLOL TART IMMED RELEASE 50 MG TABLET PO SCH ×2 (08:13→21:31)
[2021-02-19] MEDS: SERTRALINE 100 MG TABLET. PO SCH (08:13)
[2021-02-19] MEDS: POLYETHYLENE GLYCOL 3350 17 GM PACKET. PO SCH (08:14)
[2021-02-19 15:44] VITALS: BP 147/77
[2021-02-19] MEDS: MELATONIN 3 MG TABLET PO SCH (21:31)
[2021-02-19] MEDS: ATORVASTATIN CALCIUM 10 MG TABLET. PO SCH (21:31)
[2021-02-19] MEDS: MIRTAZAPINE ODT 15 MG TAB.RAPDIS. PO SCH (21:31)
--- NOTE | 2021-02-19 21:36 | PDOC ---
Exam Note: Devang Note: Please also refer to the separate dictated note~for this date of service dictated separately.~Patient seen individually. Discussed the patient with Nursing staff reviewed the chart.~Reviewed interim history and current functioning. Reviewed vital signs,~Labs/ Radiology~and current medications noted below. Continue current treatment with the changes noted in the dictated addendum note Assessment: Vital Signs/I&O: Vital Signs Date Time Temp Pulse Resp B/P (MAP) Pulse Ox O2 Delivery O2 Flow Rate FiO2 02/19/21 15:44 97.2 69 20 147/77 (100) 98 Room Air I & O 02/18/21 02/18/21 02/19/21 14:59 22:59 06:59 Intake Total 480 ml 240 ml Balance 480 ml 240 ml Labs: Laboratory Tests Test 02/19/21 07:10 White Blood Count 3.5 x10^3/uL (4.0-11.0) L Red Blood Count 3.49 x10^6/uL (3.50-5.40) L Hemoglobin 11.6 g/dL (12.0-15.5) L Hematocrit 34.7 % (36.0-47.0) L Mean Corpuscular Volume 99 fL (79-100) # Mean Corpuscular Hemoglobin 33 pg (25-35) Mean Corpuscular Hemoglobin Concent 33 g/dL (31-37) Red Cell Distribution Width 14.4 % (11.5-14.5) Platelet Count 206 x10^3/uL (140-400) Neutrophils (%) (Auto) 52 % (31-73) Lymphocytes (%) (Auto) 24 % (24-48) Monocytes (%) (Auto) 16 % (0-9) H Eosinophils (%) (Auto) 8 % (0-3) H Basophils (%) (Auto) 1 % (0-3) Neutrophils # (Auto) 1.8 x10^3uL (1.8-7.7) Lymphocytes # (Auto) 0.8 x10^3/uL (1.0-4.8) L Monocytes # (Auto) 0.5 x10^3/uL (0.0-1.1) Eosinophils # (Auto) 0.3 x10^3/uL (0.0-0.7) Basophils # (Auto) 0.0 x10^3/uL (0.0-0.2) Sodium Level 142 mmol/L (136-145) Potassium Level 4.0 mmol/L (3.5-5.1) Chloride Level 105 mmol/L (98-107) Carbon Dioxide Level 32 mmol/L (21-32) Anion Gap 5 (6-14) L Blood Urea Nitrogen 30 mg/dL (7-20) H Creatinine 0.8 mg/dL (0.6-1.0) Estimated GFR (Cockcroft-Gault) 68.0 BUN/Creatinine Ratio 38 (6-20) H Glucose Level 89 mg/dL (70-99) Calcium Level 9.1 mg/dL (8.5-10.1) Total Bilirubin 0.3 mg/dL (0.2-1.0) Aspartate Amino Transferase (AST) 16 U/L (15-37) Alanine Aminotransferase (ALT) 18 U/L (14-59) Alkaline Phosphatase 61 U/L (46-116) Total Protein 7.2 g/dL (6.4-8.2) Albumin 3.4 g/dL (3.4-5.0) Albumin/Globulin Ratio 0.9 (1.0-1.7) L Current Medications: Meds: Laboratory Tests Test 02/19/21 07:10 White Blood Count 3.5 x10^3/uL Red Blood Count 3.49 x10^6/uL Hemoglobin 11.6 g/dL Hematocrit 34.7 % Mean Corpuscular Volume 99 fL Mean Corpuscular Hemoglobin 33 pg Mean Corpuscular Hemoglobin Concent 33 g/dL Red Cell Distribution Width 14.4 % Platelet Count 206 x10^3/uL Neutrophils (%) (Auto) 52 % Lymphocytes (%) (Auto) 24 % Monocytes (%) (Auto) 16 % Eosinophils (%) (Auto) 8 % Basophils (%) (Auto) 1 % Neutrophils # (Auto) 1.8 x10^3uL Lymphocytes # (Auto) 0.8 x10^3/uL Monocytes # (Auto) 0.5 x10^3/uL Eosinophils # (Auto) 0.3 x10^3/uL Basophils # (Auto) 0.0 x10^3/uL Sodium Level 142 mmol/L Potassium Level 4.0 mmol/L Chloride Level 105 mmol/L Carbon Dioxide Level 32 mmol/L Anion Gap 5 Blood Urea Nitrogen 30 mg/dL Creatinine 0.8 mg/dL Estimated GFR (Cockcroft-Gault) 68.0 BUN/Creatinine Ratio 38 Glucose Level 89 mg/dL Calcium Level 9.1 mg/dL Total Bilirubin 0.3 mg/dL Aspartate Amino Transf (AST/SGOT) 16 U/L Alanine Aminotransferase (ALT/SGPT) 18 U/L Alkaline Phosphatase 61 U/L Total Protein 7.2 g/dL Albumin 3.4 g/dL Albumin/Globulin Ratio 0.9 Current Medications Medications (Trade) Dose Ordered Sig/Marguerite Route PRN Reason Start Time Stop Time Status Last Admin Dose Admin Potassium Chloride (Klor-Con) 40 meq 1X ONCE PO 01/04/21 19:00 01/04/21 19:07 DC 01/04/21 19:16 Acetaminophen (Tylenol) 500 mg PRN Q12HR PRN PO PAIN 01/04/21 23:00 Cancel Atorvastatin Calcium (Lipitor) 10 mg QHS PO 01/05/21 21:00 02/18/21 20:52 Furosemide (Lasix) 40 mg DAILY PO 01/05/21 09:00 02/19/21 08:12 Metoprolol Tartrate (Lopressor) 50 mg BID PO 01/05/21 09:00 02/19/21 08:13 Potassium Chloride (Klor-Con) 20 meq DAILY PO 01/05/21 09:00 01/11/21 15:00 DC 01/11/21 08:57 Polyethylene Glycol (miraLAX) 17 gm DAILY PO 01/05/21 09:00 02/19/21 08:14 Lorazepam (Ativan) 1 mg PRN Q4HRS PRN PO ANXIETY / AGITATION 01/04/21 23:00 01/09/21 10:42 DC 01/07/21 23:07 Lorazepam (Ativan Intensol) 1 mg PRN Q6HRS PRN PO ANXIETY / AGITATION 01/04/21 23:00 01/09/21 17:03 DC Risperidone (RisperDAL) 0.25 mg DAILY PO 01/05/21 09:00 01/22/21 17:34 DC 01/22/21 08:35 Risperidone (RisperDAL) 0.5 mg QHS PO 01/05/21 21:00 01/08/21 17:27 DC 01/07/21 20:28 Melatonin (Melatonin) 6 mg HS PO 01/05/21 21:00 01/08/21 17:27 DC 01/07/21 20:28 Acetaminophen (Tylenol) 650 mg PRN Q6HRS PRN PO MILD PAIN / TEMP > 100.3'F 01/04/21 22:45 01/29/21 14:47 Multi-Ingredient Ointment (Analgesic [place]) 1 abby PRN QID PRN TP MUSCLE PAIN 01/04/21 22:45 Al Hydroxide/Mg Hydroxide (Mylanta Plus Xs) 15 ml PRN AFTMEALHC PRN PO DYSPEPSIA 01/04/21 22:45 Magnesium Hydroxide (Milk Of Magnesia) 2,400 mg PRN QHS PRN PO CONSTIPATION 01/04/21 22:45 Potassium Chloride (Klor-Con) 40 meq 1X ONCE PO 01/05/21 15:45 01/05/21 15:49 DC 01/05/21 17:29 Potassium Chloride (Klor-Con) 20 meq BID PO 01/05/21 21:00 02/19/21 08:13 Sertraline HCl (Zoloft) 25 mg DAILY PO 01/07/21 09:00 01/09/21 18:00 DC 01/09/21 08:24 Sertraline HCl (Zoloft) 50 mg DAILY PO 01/10/21 09:00 01/14/21 11:10 DC 01/14/21 08:11 Melatonin (Melatonin) 3 mg HS PO 01/08/21 21:00 02/18/21 20:51 Trazodone HCl (Desyrel) 50 mg PRN QHS PRN PO INSOMNIA MRX1 01/08/21 17:30 02/18/21 01:00 Risperidone (RisperDAL) 1 mg QHS PO 01/08/21 21:00 01/08/21 19:47 DC Olanzapine (ZyPREXA ZYDIS) 2.5 mg PRN Q2HRS PRN PO PSYCHOSIS 01/08/21 19:45 02/11/21 01:58 Risperidone (RisperDAL) 0.5 mg HS PO 01/08/21 21:00 01/08/21 19:58 DC Risperidone (RisperDAL) 0.25 mg HS PO 01/08/21 20:00 01/08/21 20:01 DC Risperidone (RisperDAL) 0.25 mg HS PO 01/08/21 21:00 01/14/21 11:11 DC 01/13/21 20:11 Lorazepam (Ativan Intensol) 0.25 mg PRN Q6HRS PRN PO ANXIETY / AGITATION 01/09/21 17:15 01/09/21 17:46 DC Lorazepam (Ativan Intensol) 0.25 mg PRN TID PRN PO ANXIETY / AGITATION 01/09/21 17:45 01/19/21 17:50 Trazodone HCl (Desyrel) 50 mg 1445 ONCE PO 01/11/21 14:45 01/11/21 14:54 DC Mirtazapine (Remeron) 7.5 mg QHS PO 01/11/21 21:00 01/18/21 19:49 DC 01/17/21 19:38 Sertraline HCl (Zoloft) 75 mg DAILY PO 01/15/21 09:00 01/19/21 17:19 DC 01/19/21 08:14 Risperidone (RisperDAL) 0.5 mg QHS PO 01/14/21 21:00 02/18/21 20:52 Mirtazapine (Remeron Anum-Tab) 15 mg QHS PO 01/18/21 21:00 02/18/21 20:52 Sertraline HCl (Zoloft) 100 mg DAILY PO 01/20/21 09:00 02/19/21 08:13 Divalproex Sodium (Depakote Sprinkles) 125 mg DAILY PO 01/22/21 09:00 02/19/21 08:12 Divalproex Sodium (Depakote Sprinkles) 125 mg DAILYWSUP PO 01/21/21 17:00 02/19/21 16:25 Risperidone (RisperDAL) 0.5 mg DAILY PO 01/23/21 09:00 02/19/21 08:13 I have reviewed the current psychotropics carefully including drug interactions. Risk benefit ratio favors no change other than as noted in my dictated progress note. 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
[2021-02-20 06:00] VITALS: BP 151/77
[2021-02-20] MEDS: risperiDONE 0.5 MG TABLET. PO SCH ×2 (08:03→20:28)
[2021-02-20] MEDS: DIVALPROEX 125 MG CAP.SPRINK PO SCH ×2 (08:03→17:00)
[2021-02-20] MEDS: SERTRALINE 100 MG TABLET. PO SCH (08:03)
[2021-02-20] MEDS: POTASSIUM CHLORIDE 20 MEQ TABLET.ER. PO SCH ×2 (08:03→20:28)
[2021-02-20] MEDS: FUROSEMIDE 40 MG TABLET PO SCH (08:03)
[2021-02-20] MEDS: METOPROLOL TART IMMED RELEASE 50 MG TABLET PO SCH ×2 (08:04→20:27)
[2021-02-20] MEDS: POLYETHYLENE GLYCOL 3350 17 GM PACKET. PO SCH (08:09)
[2021-02-20 15:32] VITALS: BP 127/62
[2021-02-20] MEDS: MIRTAZAPINE ODT 15 MG TAB.RAPDIS. PO SCH (20:27)
[2021-02-20] MEDS: MELATONIN 3 MG TABLET PO SCH (20:27)
[2021-02-20] MEDS: ATORVASTATIN CALCIUM 10 MG TABLET. PO SCH (20:27)
--- NOTE | 2021-02-20 22:36 | PDOC ---
Exam Note: Devang Note: Please also refer to the separate dictated note~for this date of service dictated separately.~Patient seen individually. Discussed the patient with Nursing staff reviewed the chart.~Reviewed interim history and current functioning. Reviewed vital signs,~Labs/ Radiology~and current medications noted below. Continue current treatment with the changes noted in the dictated addendum note Assessment: Vital Signs/I&O: Vital Signs Date Time Temp Pulse Resp B/P (MAP) Pulse Ox O2 Delivery O2 Flow Rate FiO2 02/20/21 20:27 81 127/62 02/20/21 15:32 97.9 18 97 Room Air I & O 02/19/21 02/19/21 02/20/21 15:00 23:00 07:00 Intake Total 600 ml 600 ml Balance 600 ml 600 ml Current Medications: Meds: Current Medications Medications (Trade) Dose Ordered Sig/Marguerite Route PRN Reason Start Time Stop Time Status Last Admin Dose Admin Potassium Chloride (Klor-Con) 40 meq 1X ONCE PO 01/04/21 19:00 01/04/21 19:07 DC 01/04/21 19:16 Acetaminophen (Tylenol) 500 mg PRN Q12HR PRN PO PAIN 01/04/21 23:00 Cancel Atorvastatin Calcium (Lipitor) 10 mg QHS PO 01/05/21 21:00 02/20/21 20:27 Furosemide (Lasix) 40 mg DAILY PO 01/05/21 09:00 02/20/21 08:03 Metoprolol Tartrate (Lopressor) 50 mg BID PO 01/05/21 09:00 02/20/21 20:27 Potassium Chloride (Klor-Con) 20 meq DAILY PO 01/05/21 09:00 01/11/21 15:00 DC 01/11/21 08:57 Polyethylene Glycol (miraLAX) 17 gm DAILY PO 01/05/21 09:00 02/19/21 08:14 Lorazepam (Ativan) 1 mg PRN Q4HRS PRN PO ANXIETY / AGITATION 01/04/21 23:00 01/09/21 10:42 DC 01/07/21 23:07 Lorazepam (Ativan Intensol) 1 mg PRN Q6HRS PRN PO ANXIETY / AGITATION 01/04/21 23:00 01/09/21 17:03 DC Risperidone (RisperDAL) 0.25 mg DAILY PO 01/05/21 09:00 01/22/21 17:34 DC 01/22/21 08:35 Risperidone (RisperDAL) 0.5 mg QHS PO 01/05/21 21:00 01/08/21 17:27 DC 01/07/21 20:28 Melatonin (Melatonin) 6 mg HS PO 01/05/21 21:00 01/08/21 17:27 DC 01/07/21 20:28 Acetaminophen (Tylenol) 650 mg PRN Q6HRS PRN PO MILD PAIN / TEMP > 100.3'F 01/04/21 22:45 01/29/21 14:47 Multi-Ingredient Ointment (Analgesic [place]) 1 abby PRN QID PRN TP MUSCLE PAIN 01/04/21 22:45 Al Hydroxide/Mg Hydroxide (Mylanta Plus Xs) 15 ml PRN AFTMEALHC PRN PO DYSPEPSIA 01/04/21 22:45 Magnesium Hydroxide (Milk Of Magnesia) 2,400 mg PRN QHS PRN PO CONSTIPATION 01/04/21 22:45 Potassium Chloride (Klor-Con) 40 meq 1X ONCE PO 01/05/21 15:45 01/05/21 15:49 DC 01/05/21 17:29 Potassium Chloride (Klor-Con) 20 meq BID PO 01/05/21 21:00 02/20/21 20:28 Sertraline HCl (Zoloft) 25 mg DAILY PO 01/07/21 09:00 01/09/21 18:00 DC 01/09/21 08:24 Sertraline HCl (Zoloft) 50 mg DAILY PO 01/10/21 09:00 01/14/21 11:10 DC 01/14/21 08:11 Melatonin (Melatonin) 3 mg HS PO 01/08/21 21:00 02/20/21 20:27 Trazodone HCl (Desyrel) 50 mg PRN QHS PRN PO INSOMNIA MRX1 01/08/21 17:30 02/18/21 01:00 Risperidone (RisperDAL) 1 mg QHS PO 01/08/21 21:00 01/08/21 19:47 DC Olanzapine (ZyPREXA ZYDIS) 2.5 mg PRN Q2HRS PRN PO PSYCHOSIS 01/08/21 19:45 02/11/21 01:58 Risperidone (RisperDAL) 0.5 mg HS PO 01/08/21 21:00 01/08/21 19:58 DC Risperidone (RisperDAL) 0.25 mg HS PO 01/08/21 20:00 01/08/21 20:01 DC Risperidone (RisperDAL) 0.25 mg HS PO 01/08/21 21:00 01/14/21 11:11 DC 01/13/21 20:11 Lorazepam (Ativan Intensol) 0.25 mg PRN Q6HRS PRN PO ANXIETY / AGITATION 01/09/21 17:15 01/09/21 17:46 DC Lorazepam (Ativan Intensol) 0.25 mg PRN TID PRN PO ANXIETY / AGITATION 01/09/21 17:45 01/19/21 17:50 Trazodone HCl (Desyrel) 50 mg 1445 ONCE PO 01/11/21 14:45 01/11/21 14:54 DC Mirtazapine (Remeron) 7.5 mg QHS PO 01/11/21 21:00 01/18/21 19:49 DC 01/17/21 19:38 Sertraline HCl (Zoloft) 75 mg DAILY PO 01/15/21 09:00 01/19/21 17:19 DC 01/19/21 08:14 Risperidone (RisperDAL) 0.5 mg QHS PO 01/14/21 21:00 02/20/21 20:28 Mirtazapine (Remeron Anum-Tab) 15 mg QHS PO 01/18/21 21:00 02/20/21 20:27 Sertraline HCl (Zoloft) 100 mg DAILY PO 01/20/21 09:00 02/20/21 08:03 Divalproex Sodium (Depakote Sprinkles) 125 mg DAILY PO 01/22/21 09:00 02/20/21 08:03 Divalproex Sodium (Depakote Sprinkles) 125 mg DAILYWSUP PO 01/21/21 17:00 02/20/21 17:00 Risperidone (RisperDAL) 0.5 mg DAILY PO 01/23/21 09:00 02/20/21 08:03 I have reviewed the current psychotropics carefully including drug interactions. Risk benefit ratio favors no change other than as noted in my dictated progress note. Diagnosis: Problems: (1) Dementia in Alzheimer's disease with depression (2) Dementia in Alzheimer's disease with delusions (3) Dementia of the Alzheimer's type with early onset with behavioral disturbance (4) Major neurocognitive disorder (5) Impulse control disorder, unspecified (6) Anxiety disorder, unspecified (7) Dementia, vascular, with depression (8) Dementia, vascular, with delusions OFE MONTENEGRO MD Feb 20, 2021 22:36
[2021-02-21 06:40] VITALS: BP 161/82
[2021-02-21] MEDS: POLYETHYLENE GLYCOL 3350 17 GM PACKET. PO SCH (07:20)
[2021-02-21] MEDS: risperiDONE 0.5 MG TABLET. PO SCH ×2 (08:11→20:27)
[2021-02-21] MEDS: FUROSEMIDE 40 MG TABLET PO SCH (08:12)
[2021-02-21] MEDS: METOPROLOL TART IMMED RELEASE 50 MG TABLET PO SCH ×2 (08:12→20:27)
[2021-02-21] MEDS: POTASSIUM CHLORIDE 20 MEQ TABLET.ER. PO SCH ×2 (08:12→20:27)
[2021-02-21] MEDS: DIVALPROEX 125 MG CAP.SPRINK PO SCH ×2 (08:12→17:24)
[2021-02-21] MEDS: SERTRALINE 100 MG TABLET. PO SCH (08:12)
[2021-02-21 16:22] VITALS: BP 122/66
[2021-02-21] MEDS: MIRTAZAPINE ODT 15 MG TAB.RAPDIS. PO SCH (20:27)
[2021-02-21] MEDS: ATORVASTATIN CALCIUM 10 MG TABLET. PO SCH (20:27)
[2021-02-21] MEDS: MELATONIN 3 MG TABLET PO SCH (20:27)
--- NOTE | 2021-02-21 21:45 | PDOC ---
Exam Note: Devang Note: Please also refer to the separate dictated note~for this date of service dictated separately.~Patient seen individually. Discussed the patient with Nursing staff reviewed the chart.~Reviewed interim history and current functioning. Reviewed vital signs,~Labs/ Radiology~and current medications noted below. Continue current treatment with the changes noted in the dictated addendum note Assessment: Vital Signs/I&O: Vital Signs Date Time Temp Pulse Resp B/P (MAP) Pulse Ox O2 Delivery O2 Flow Rate FiO2 02/21/21 20:27 71 122/66 02/21/21 16:22 97.5 20 99 02/20/21 15:32 Room Air I & O 02/20/21 02/20/21 02/21/21 15:00 23:00 07:00 Intake Total 560 ml 560 ml Balance 560 ml 560 ml Current Medications: Meds: Current Medications Medications (Trade) Dose Ordered Sig/Marguerite Route PRN Reason Start Time Stop Time Status Last Admin Dose Admin Potassium Chloride (Klor-Con) 40 meq 1X ONCE PO 01/04/21 19:00 01/04/21 19:07 DC 01/04/21 19:16 Acetaminophen (Tylenol) 500 mg PRN Q12HR PRN PO PAIN 01/04/21 23:00 Cancel Atorvastatin Calcium (Lipitor) 10 mg QHS PO 01/05/21 21:00 02/21/21 20:27 Furosemide (Lasix) 40 mg DAILY PO 01/05/21 09:00 02/21/21 08:12 Metoprolol Tartrate (Lopressor) 50 mg BID PO 01/05/21 09:00 02/21/21 20:27 Potassium Chloride (Klor-Con) 20 meq DAILY PO 01/05/21 09:00 01/11/21 15:00 DC 01/11/21 08:57 Polyethylene Glycol (miraLAX) 17 gm DAILY PO 01/05/21 09:00 02/19/21 08:14 Lorazepam (Ativan) 1 mg PRN Q4HRS PRN PO ANXIETY / AGITATION 01/04/21 23:00 01/09/21 10:42 DC 01/07/21 23:07 Lorazepam (Ativan Intensol) 1 mg PRN Q6HRS PRN PO ANXIETY / AGITATION 01/04/21 23:00 01/09/21 17:03 DC Risperidone (RisperDAL) 0.25 mg DAILY PO 01/05/21 09:00 01/22/21 17:34 DC 01/22/21 08:35 Risperidone (RisperDAL) 0.5 mg QHS PO 01/05/21 21:00 01/08/21 17:27 DC 01/07/21 20:28 Melatonin (Melatonin) 6 mg HS PO 01/05/21 21:00 01/08/21 17:27 DC 01/07/21 20:28 Acetaminophen (Tylenol) 650 mg PRN Q6HRS PRN PO MILD PAIN / TEMP > 100.3'F 01/04/21 22:45 01/29/21 14:47 Multi-Ingredient Ointment (Analgesic [place]) 1 abby PRN QID PRN TP MUSCLE PAIN 01/04/21 22:45 Al Hydroxide/Mg Hydroxide (Mylanta Plus Xs) 15 ml PRN AFTMEALHC PRN PO DYSPEPSIA 01/04/21 22:45 Magnesium Hydroxide (Milk Of Magnesia) 2,400 mg PRN QHS PRN PO CONSTIPATION 01/04/21 22:45 Potassium Chloride (Klor-Con) 40 meq 1X ONCE PO 01/05/21 15:45 01/05/21 15:49 DC 01/05/21 17:29 Potassium Chloride (Klor-Con) 20 meq BID PO 01/05/21 21:00 02/21/21 20:27 Sertraline HCl (Zoloft) 25 mg DAILY PO 01/07/21 09:00 01/09/21 18:00 DC 01/09/21 08:24 Sertraline HCl (Zoloft) 50 mg DAILY PO 01/10/21 09:00 01/14/21 11:10 DC 01/14/21 08:11 Melatonin (Melatonin) 3 mg HS PO 01/08/21 21:00 02/21/21 20:27 Trazodone HCl (Desyrel) 50 mg PRN QHS PRN PO INSOMNIA MRX1 01/08/21 17:30 02/18/21 01:00 Risperidone (RisperDAL) 1 mg QHS PO 01/08/21 21:00 01/08/21 19:47 DC Olanzapine (ZyPREXA ZYDIS) 2.5 mg PRN Q2HRS PRN PO PSYCHOSIS 01/08/21 19:45 02/11/21 01:58 Risperidone (RisperDAL) 0.5 mg HS PO 01/08/21 21:00 01/08/21 19:58 DC Risperidone (RisperDAL) 0.25 mg HS PO 01/08/21 20:00 01/08/21 20:01 DC Risperidone (RisperDAL) 0.25 mg HS PO 01/08/21 21:00 01/14/21 11:11 DC 01/13/21 20:11 Lorazepam (Ativan Intensol) 0.25 mg PRN Q6HRS PRN PO ANXIETY / AGITATION 01/09/21 17:15 01/09/21 17:46 DC Lorazepam (Ativan Intensol) 0.25 mg PRN TID PRN PO ANXIETY / AGITATION 01/09/21 17:45 01/19/21 17:50 Trazodone HCl (Desyrel) 50 mg 1445 ONCE PO 01/11/21 14:45 01/11/21 14:54 DC Mirtazapine (Remeron) 7.5 mg QHS PO 01/11/21 21:00 01/18/21 19:49 DC 01/17/21 19:38 Sertraline HCl (Zoloft) 75 mg DAILY PO 01/15/21 09:00 01/19/21 17:19 DC 01/19/21 08:14 Risperidone (RisperDAL) 0.5 mg QHS PO 01/14/21 21:00 02/21/21 20:27 Mirtazapine (Remeron Anum-Tab) 15 mg QHS PO 01/18/21 21:00 02/21/21 20:27 Sertraline HCl (Zoloft) 100 mg DAILY PO 01/20/21 09:00 02/21/21 08:12 Divalproex Sodium (Depakote Sprinkles) 125 mg DAILY PO 01/22/21 09:00 02/21/21 08:12 Divalproex Sodium (Depakote Sprinkles) 125 mg DAILYWSUP PO 01/21/21 17:00 02/21/21 17:24 Risperidone (RisperDAL) 0.5 mg DAILY PO 01/23/21 09:00 02/21/21 08:11 I have reviewed the current psychotropics carefully including drug interactions. Risk benefit ratio favors no change other than as noted in my dictated progress note. 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
[2021-02-22 06:05] VITALS: BP 130/65
--- NOTE | 2021-02-22 06:52 | PDOC ---
Exam Note: Devang Note: This note is a late entry for 02/19/2021overs elements not covered in my initial note. Subjective: The patient was seen face to face in the evening of 02/19/2021 with Kaylee MARIANO, discussed and reviewed the chart. The patient slept 9 hours previous night. She remains confused. She does complain of having too many medications given to her in the morning. I processed this with her. Review of Systems: No CV, , pulmonary, eye system symptoms on review. Reliability poor. Mental Status Exam: The patient is oriented to herself. Insight and judgment, recent and remote memory, attention and concentration is poor consistent with her diagnoses. Laboratory Data: Reviewed. Impression: Major neurocognitive disorder Alzheimer vascular with delusion, depression, and behavioral disturbance. Anxiety disorder unspecified. Impulse control disorder unspecified. Plan: Continue current psychotropics from initial note. Assessment: Vital Signs/I&O: Vital Signs Date Time Temp Pulse Resp B/P (MAP) Pulse Ox O2 Delivery O2 Flow Rate FiO2 02/22/21 06:05 97.4 66 18 130/65 (86) 96 02/20/21 15:32 Room Air I & O 02/21/21 02/21/21 02/22/21 14:59 22:59 06:59 Intake Total 1200 ml 740 ml Balance 1200 ml 740 ml Current Medications: Meds: Current Medications Medications (Trade) Dose Ordered Sig/Marguerite Route PRN Reason Start Time Stop Time Status Last Admin Dose Admin Potassium Chloride (Klor-Con) 40 meq 1X ONCE PO 01/04/21 19:00 01/04/21 19:07 DC 01/04/21 19:16 Acetaminophen (Tylenol) 500 mg PRN Q12HR PRN PO PAIN 01/04/21 23:00 Cancel Atorvastatin Calcium (Lipitor) 10 mg QHS PO 01/05/21 21:00 02/21/21 20:27 Furosemide (Lasix) 40 mg DAILY PO 01/05/21 09:00 02/21/21 08:12 Metoprolol Tartrate (Lopressor) 50 mg BID PO 01/05/21 09:00 02/21/21 20:27 Potassium Chloride (Klor-Con) 20 meq DAILY PO 01/05/21 09:00 01/11/21 15:00 DC 01/11/21 08:57 Polyethylene Glycol (miraLAX) 17 gm DAILY PO 01/05/21 09:00 02/19/21 08:14 Lorazepam (Ativan) 1 mg PRN Q4HRS PRN PO ANXIETY / AGITATION 01/04/21 23:00 01/09/21 10:42 DC 01/07/21 23:07 Lorazepam (Ativan Intensol) 1 mg PRN Q6HRS PRN PO ANXIETY / AGITATION 01/04/21 23:00 01/09/21 17:03 DC Risperidone (RisperDAL) 0.25 mg DAILY PO 01/05/21 09:00 01/22/21 17:34 DC 01/22/21 08:35 Risperidone (RisperDAL) 0.5 mg QHS PO 01/05/21 21:00 01/08/21 17:27 DC 01/07/21 20:28 Melatonin (Melatonin) 6 mg HS PO 01/05/21 21:00 01/08/21 17:27 DC 01/07/21 20:28 Acetaminophen (Tylenol) 650 mg PRN Q6HRS PRN PO MILD PAIN / TEMP > 100.3'F 01/04/21 22:45 01/29/21 14:47 Multi-Ingredient Ointment (Analgesic [place]) 1 abby PRN QID PRN TP MUSCLE PAIN 01/04/21 22:45 Al Hydroxide/Mg Hydroxide (Mylanta Plus Xs) 15 ml PRN AFTMEALHC PRN PO DYSPEPSIA 01/04/21 22:45 Magnesium Hydroxide (Milk Of Magnesia) 2,400 mg PRN QHS PRN PO CONSTIPATION 01/04/21 22:45 Potassium Chloride (Klor-Con) 40 meq 1X ONCE PO 01/05/21 15:45 01/05/21 15:49 DC 01/05/21 17:29 Potassium Chloride (Klor-Con) 20 meq BID PO 01/05/21 21:00 02/21/21 20:27 Sertraline HCl (Zoloft) 25 mg DAILY PO 01/07/21 09:00 01/09/21 18:00 DC 01/09/21 08:24 Sertraline HCl (Zoloft) 50 mg DAILY PO 01/10/21 09:00 01/14/21 11:10 DC 01/14/21 08:11 Melatonin (Melatonin) 3 mg HS PO 01/08/21 21:00 02/21/21 20:27 Trazodone HCl (Desyrel) 50 mg PRN QHS PRN PO INSOMNIA MRX1 01/08/21 17:30 02/18/21 01:00 Risperidone (RisperDAL) 1 mg QHS PO 01/08/21 21:00 01/08/21 19:47 DC Olanzapine (ZyPREXA ZYDIS) 2.5 mg PRN Q2HRS PRN PO PSYCHOSIS 01/08/21 19:45 02/11/21 01:58 Risperidone (RisperDAL) 0.5 mg HS PO 01/08/21 21:00 01/08/21 19:58 DC Risperidone (RisperDAL) 0.25 mg HS PO 01/08/21 20:00 01/08/21 20:01 DC Risperidone (RisperDAL) 0.25 mg HS PO 01/08/21 21:00 01/14/21 11:11 DC 01/13/21 20:11 Lorazepam (Ativan Intensol) 0.25 mg PRN Q6HRS PRN PO ANXIETY / AGITATION 01/09/21 17:15 01/09/21 17:46 DC Lorazepam (Ativan Intensol) 0.25 mg PRN TID PRN PO ANXIETY / AGITATION 01/09/21 17:45 01/19/21 17:50 Trazodone HCl (Desyrel) 50 mg 1445 ONCE PO 01/11/21 14:45 01/11/21 14:54 DC Mirtazapine (Remeron) 7.5 mg QHS PO 01/11/21 21:00 01/18/21 19:49 DC 01/17/21 19:38 Sertraline HCl (Zoloft) 75 mg DAILY PO 01/15/21 09:00 01/19/21 17:19 DC 01/19/21 08:14 Risperidone (RisperDAL) 0.5 mg QHS PO 01/14/21 21:00 02/21/21 20:27 Mirtazapine (Remeron Anum-Tab) 15 mg QHS PO 01/18/21 21:00 02/21/21 20:27 Sertraline HCl (Zoloft) 100 mg DAILY PO 01/20/21 09:00 02/21/21 08:12 Divalproex Sodium (Depakote Sprinkles) 125 mg DAILY PO 01/22/21 09:00 02/21/21 08:12 Divalproex Sodium (Depakote Sprinkles) 125 mg DAILYWSUP PO 01/21/21 17:00 02/21/21 17:24 Risperidone (RisperDAL) 0.5 mg DAILY PO 01/23/21 09:00 02/21/21 08:11 I have reviewed the current psychotropics carefully including drug interactions. Risk benefit ratio favors no change other than as noted in my dictated progress note. 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
--- NOTE | 2021-02-22 07:02 | PDOC ---
Exam Note: Devang Note: This note is a late entry for 02/20/2021overs elements not covered in my initial note. Subjective: The patient was seen face to face in the evening of 02/20/2021 with Kaylee MARIANO, discussed and reviewed the chart. The patient slept 6-3/4 hours previous night. I met with her in her room in the evening. Review of Systems: No CV, , pulmonary, eye system symptoms on review. Reliability poor. Mental Status Exam: The patient is oriented to herself. Insight and judgment, recent and remote memory, attention and concentration is poor consistent with her diagnoses. Laboratory Data: Reviewed. Impression: Major neurocognitive disorder Alzheimer vascular with delusion, depression, and behavioral disturbance. Anxiety disorder unspecified. Impulse control disorder unspecified. Plan: Continue current psychotropics from initial note. Assessment: Vital Signs/I&O: Vital Signs Date Time Temp Pulse Resp B/P (MAP) Pulse Ox O2 Delivery O2 Flow Rate FiO2 02/22/21 06:05 97.4 66 18 130/65 (86) 96 02/20/21 15:32 Room Air I & O 02/21/21 02/21/21 02/22/21 15:00 23:00 07:00 Intake Total 1200 ml 740 ml Balance 1200 ml 740 ml Current Medications: Meds: Current Medications Medications (Trade) Dose Ordered Sig/Marguerite Route PRN Reason Start Time Stop Time Status Last Admin Dose Admin Potassium Chloride (Klor-Con) 40 meq 1X ONCE PO 01/04/21 19:00 01/04/21 19:07 DC 01/04/21 19:16 Acetaminophen (Tylenol) 500 mg PRN Q12HR PRN PO PAIN 01/04/21 23:00 Cancel Atorvastatin Calcium (Lipitor) 10 mg QHS PO 01/05/21 21:00 02/21/21 20:27 Furosemide (Lasix) 40 mg DAILY PO 01/05/21 09:00 02/21/21 08:12 Metoprolol Tartrate (Lopressor) 50 mg BID PO 01/05/21 09:00 02/21/21 20:27 Potassium Chloride (Klor-Con) 20 meq DAILY PO 01/05/21 09:00 01/11/21 15:00 DC 01/11/21 08:57 Polyethylene Glycol (miraLAX) 17 gm DAILY PO 01/05/21 09:00 8/6/21 08:14 Lorazepam (Ativan) 1 mg PRN Q4HRS PRN PO ANXIETY / AGITATION 01/04/21 23:00 01/09/21 10:42 DC 01/07/21 23:07 Lorazepam (Ativan Intensol) 1 mg PRN Q6HRS PRN PO ANXIETY / AGITATION 01/04/21 23:00 01/09/21 17:03 DC Risperidone (RisperDAL) 0.25 mg DAILY PO 01/05/21 09:00 01/22/21 17:34 DC 01/22/21 08:35 Risperidone (RisperDAL) 0.5 mg QHS PO 01/05/21 21:00 01/08/21 17:27 DC 01/07/21 20:28 Melatonin (Melatonin) 6 mg HS PO 01/05/21 21:00 01/08/21 17:27 DC 01/07/21 20:28 Acetaminophen (Tylenol) 650 mg PRN Q6HRS PRN PO MILD PAIN / TEMP > 100.3'F 01/04/21 22:45 01/29/21 14:47 Multi-Ingredient Ointment (Analgesic [place]) 1 abby PRN QID PRN TP MUSCLE PAIN 01/04/21 22:45 Al Hydroxide/Mg Hydroxide (Mylanta Plus Xs) 15 ml PRN AFTMEALHC PRN PO DYSPEPSIA 01/04/21 22:45 Magnesium Hydroxide (Milk Of Magnesia) 2,400 mg PRN QHS PRN PO CONSTIPATION 01/04/21 22:45 Potassium Chloride (Klor-Con) 40 meq 1X ONCE PO 01/05/21 15:45 01/05/21 15:49 DC 01/05/21 17:29 Potassium Chloride (Klor-Con) 20 meq BID PO 01/05/21 21:00 02/21/21 20:27 Sertraline HCl (Zoloft) 25 mg DAILY PO 01/07/21 09:00 01/09/21 18:00 DC 01/09/21 08:24 Sertraline HCl (Zoloft) 50 mg DAILY PO 01/10/21 09:00 01/14/21 11:10 DC 01/14/21 08:11 Melatonin (Melatonin) 3 mg HS PO 01/08/21 21:00 02/21/21 20:27 Trazodone HCl (Desyrel) 50 mg PRN QHS PRN PO INSOMNIA MRX1 01/08/21 17:30 02/18/21 01:00 Risperidone (RisperDAL) 1 mg QHS PO 01/08/21 21:00 01/08/21 19:47 DC Olanzapine (ZyPREXA ZYDIS) 2.5 mg PRN Q2HRS PRN PO PSYCHOSIS 01/08/21 19:45 02/11/21 01:58 Risperidone (RisperDAL) 0.5 mg HS PO 01/08/21 21:00 01/08/21 19:58 DC Risperidone (RisperDAL) 0.25 mg HS PO 01/08/21 20:00 01/08/21 20:01 DC Risperidone (RisperDAL) 0.25 mg HS PO 01/08/21 21:00 01/14/21 11:11 DC 01/13/21 20:11 Lorazepam (Ativan Intensol) 0.25 mg PRN Q6HRS PRN PO ANXIETY / AGITATION 01/09/21 17:15 01/09/21 17:46 DC Lorazepam (Ativan Intensol) 0.25 mg PRN TID PRN PO ANXIETY / AGITATION 01/09/21 17:45 01/19/21 17:50 Trazodone HCl (Desyrel) 50 mg 1445 ONCE PO 01/11/21 14:45 01/11/21 14:54 DC Mirtazapine (Remeron) 7.5 mg QHS PO 01/11/21 21:00 01/18/21 19:49 DC 01/17/21 19:38 Sertraline HCl (Zoloft) 75 mg DAILY PO 01/15/21 09:00 01/19/21 17:19 DC 01/19/21 08:14 Risperidone (RisperDAL) 0.5 mg QHS PO 01/14/21 21:00 02/21/21 20:27 Mirtazapine (Remeron Anum-Tab) 15 mg QHS PO 01/18/21 21:00 02/21/21 20:27 Sertraline HCl (Zoloft) 100 mg DAILY PO 01/20/21 09:00 02/21/21 08:12 Divalproex Sodium (Depakote Sprinkles) 125 mg DAILY PO 01/22/21 09:00 02/21/21 08:12 Divalproex Sodium (Depakote Sprinkles) 125 mg DAILYWSUP PO 01/21/21 17:00 02/21/21 17:24 Risperidone (RisperDAL) 0.5 mg DAILY PO 01/23/21 09:00 02/21/21 08:11 I have reviewed the current psychotropics carefully including drug interactions. Risk benefit ratio favors no change other than as noted in my dictated progress note. 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
--- NOTE | 2021-02-22 07:11 | PDOC ---
Exam Note: Devang Note: This note is a late entry for 02/21/2021overs elements not covered in my initial note. Subjective: The patient was seen face to face in the evening of 02/21/2021 with Kaylee MARIANO, discussed and reviewed the chart. The patient slept 6 hours previous night. I met with her in her room. No agitation or aggression noted. Review of Systems: No CV, , pulmonary, eye system symptoms on review. Reliability poor. Mental Status Exam: The patient is oriented to herself. Insight and judgment, recent and remote memory, attention and concentration is poor consistent with her diagnoses. Laboratory Data: Reviewed. Impression: Major neurocognitive disorder Alzheimer vascular with delusion, dep ression, and behavioral disturbance. Anxiety disorder unspecified. Impulse control disorder unspecified. Plan: Continue current psychotropics from initial note. Assessment: Vital Signs/I&O: Vital Signs Date Time Temp Pulse Resp B/P (MAP) Pulse Ox O2 Delivery O2 Flow Rate FiO2 02/22/21 06:05 97.4 66 18 130/65 (86) 96 02/20/21 15:32 Room Air I & O 02/21/21 02/21/21 02/22/21 15:00 23:00 07:00 Intake Total 1200 ml 740 ml Balance 1200 ml 740 ml Current Medications: Meds: Current Medications Medications (Trade) Dose Ordered Sig/Marguerite Route PRN Reason Start Time Stop Time Status Last Admin Dose Admin Potassium Chloride (Klor-Con) 40 meq 1X ONCE PO 01/04/21 19:00 01/04/21 19:07 DC 01/04/21 19:16 Acetaminophen (Tylenol) 500 mg PRN Q12HR PRN PO PAIN 01/04/21 23:00 Cancel Atorvastatin Calcium (Lipitor) 10 mg QHS PO 01/05/21 21:00 02/21/21 20:27 Furosemide (Lasix) 40 mg DAILY PO 01/05/21 09:00 02/21/21 08:12 Metoprolol Tartrate (Lopressor) 50 mg BID PO 01/05/21 09:00 02/21/21 20:27 Potassium Chloride (Klor-Con) 20 meq DAILY PO 01/05/21 09:00 01/11/21 15:00 DC 01/11/21 08:57 Polyethylene Glycol (miraLAX) 17 gm DAILY PO 01/05/21 09:00 02/19/21 08:14 Lorazepam (Ativan) 1 mg PRN Q4HRS PRN PO ANXIETY / AGITATION 01/04/21 23:00 01/09/21 10:42 DC 01/07/21 23:07 Lorazepam (Ativan Intensol) 1 mg PRN Q6HRS PRN PO ANXIETY / AGITATION 01/04/21 23:00 01/09/21 17:03 DC Risperidone (RisperDAL) 0.25 mg DAILY PO 01/05/21 09:00 01/22/21 17:34 DC 01/22/21 08:35 Risperidone (RisperDAL) 0.5 mg QHS PO 01/05/21 21:00 01/08/21 17:27 DC 01/07/21 20:28 Melatonin (Melatonin) 6 mg HS PO 01/05/21 21:00 01/08/21 17:27 DC 01/07/21 20:28 Acetaminophen (Tylenol) 650 mg PRN Q6HRS PRN PO MILD PAIN / TEMP > 100.3'F 01/04/21 22:45 01/29/21 14:47 Multi-Ingredient Ointment (Analgesic [place]) 1 abby PRN QID PRN TP MUSCLE PAIN 01/04/21 22:45 Al Hydroxide/Mg Hydroxide (Mylanta Plus Xs) 15 ml PRN AFTMEALHC PRN PO DYSPEPSIA 01/04/21 22:45 Magnesium Hydroxide (Milk Of Magnesia) 2,400 mg PRN QHS PRN PO CONSTIPATION 01/04/21 22:45 Potassium Chloride (Klor-Con) 40 meq 1X ONCE PO 01/05/21 15:45 01/05/21 15:49 DC 01/05/21 17:29 Potassium Chloride (Klor-Con) 20 meq BID PO 01/05/21 21:00 02/21/21 20:27 Sertraline HCl (Zoloft) 25 mg DAILY PO 01/07/21 09:00 01/09/21 18:00 DC 01/09/21 08:24 Sertraline HCl (Zoloft) 50 mg DAILY PO 01/10/21 09:00 01/14/21 11:10 DC 01/14/21 08:11 Melatonin (Melatonin) 3 mg HS PO 01/08/21 21:00 02/21/21 20:27 Trazodone HCl (Desyrel) 50 mg PRN QHS PRN PO INSOMNIA MRX1 01/08/21 17:30 02/18/21 01:00 Risperidone (RisperDAL) 1 mg QHS PO 01/08/21 21:00 01/08/21 19:47 DC Olanzapine (ZyPREXA ZYDIS) 2.5 mg PRN Q2HRS PRN PO PSYCHOSIS 01/08/21 19:45 02/11/21 01:58 Risperidone (RisperDAL) 0.5 mg HS PO 01/08/21 21:00 01/08/21 19:58 DC Risperidone (RisperDAL) 0.25 mg HS PO 01/08/21 20:00 01/08/21 20:01 DC Risperidone (RisperDAL) 0.25 mg HS PO 01/08/21 21:00 01/14/21 11:11 DC 01/13/21 20:11 Lorazepam (Ativan Intensol) 0.25 mg PRN Q6HRS PRN PO ANXIETY / AGITATION 01/09/21 17:15 01/09/21 17:46 DC Lorazepam (Ativan Intensol) 0.25 mg PRN TID PRN PO ANXIETY / AGITATION 01/09/21 17:45 01/19/21 17:50 Trazodone HCl (Desyrel) 50 mg 1445 ONCE PO 01/11/21 14:45 01/11/21 14:54 DC Mirtazapine (Remeron) 7.5 mg QHS PO 01/11/21 21:00 01/18/21 19:49 DC 01/17/21 19:38 Sertraline HCl (Zoloft) 75 mg DAILY PO 01/15/21 09:00 01/19/21 17:19 DC 01/19/21 08:14 Risperidone (RisperDAL) 0.5 mg QHS PO 01/14/21 21:00 02/21/21 20:27 Mirtazapine (Remeron Anum-Tab) 15 mg QHS PO 01/18/21 21:00 02/21/21 20:27 Sertraline HCl (Zoloft) 100 mg DAILY PO 01/20/21 09:00 02/21/21 08:12 Divalproex Sodium (Depakote Sprinkles) 125 mg DAILY PO 01/22/21 09:00 02/21/21 08:12 Divalproex Sodium (Depakote Sprinkles) 125 mg DAILYWSUP PO 01/21/21 17:00 02/21/21 17:24 Risperidone (RisperDAL) 0.5 mg DAILY PO 01/23/21 09:00 02/21/21 08:11 I have reviewed the current psychotropics carefully including drug interactions. Risk benefit ratio favors no change other than as noted in my dictated progress note. 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
[2021-02-22] MEDS: FUROSEMIDE 40 MG TABLET PO SCH (08:11)
[2021-02-22] MEDS: DIVALPROEX 125 MG CAP.SPRINK PO SCH ×2 (08:11→17:14)
[2021-02-22] MEDS: POLYETHYLENE GLYCOL 3350 17 GM PACKET. PO SCH (08:12)
[2021-02-22] MEDS: SERTRALINE 100 MG TABLET. PO SCH (08:12)
[2021-02-22] MEDS: POTASSIUM CHLORIDE 20 MEQ TABLET.ER. PO SCH ×2 (08:12→20:25)
[2021-02-22] MEDS: risperiDONE 0.5 MG TABLET. PO SCH ×2 (08:12→20:26)
[2021-02-22] MEDS: METOPROLOL TART IMMED RELEASE 50 MG TABLET PO SCH ×2 (08:12→20:25)
[2021-02-22 16:12] VITALS: BP 144/76
[2021-02-22] MEDS: MELATONIN 3 MG TABLET PO SCH (20:25)
[2021-02-22] MEDS: ATORVASTATIN CALCIUM 10 MG TABLET. PO SCH (20:25)
[2021-02-22] MEDS: MIRTAZAPINE ODT 15 MG TAB.RAPDIS. PO SCH (20:25)
--- NOTE | 2021-02-22 22:00 | PDOC ---
Exam Note: Devang Note: Please also refer to the separate dictated note~for this date of service dictated separately.~Patient seen individually. Discussed the patient with Nursing staff reviewed the chart.~Reviewed interim history and current functioning. Reviewed vital signs,~Labs/ Radiology~and current medications noted below. Continue current treatment with the changes noted in the dictated addendum note Assessment: Vital Signs/I&O: Vital Signs Date Time Temp Pulse Resp B/P (MAP) Pulse Ox O2 Delivery O2 Flow Rate FiO2 02/22/21 20:25 74 144/76 02/22/21 16:12 97.4 20 94 02/20/21 15:32 Room Air I & O 02/21/21 02/21/21 02/22/21 14:59 22:59 06:59 Intake Total 1200 ml 740 ml Balance 1200 ml 740 ml Current Medications: Meds: Current Medications Medications (Trade) Dose Ordered Sig/Marguerite Route PRN Reason Start Time Stop Time Status Last Admin Dose Admin Potassium Chloride (Klor-Con) 40 meq 1X ONCE PO 01/04/21 19:00 01/04/21 19:07 DC 01/04/21 19:16 Acetaminophen (Tylenol) 500 mg PRN Q12HR PRN PO PAIN 01/04/21 23:00 Cancel Atorvastatin Calcium (Lipitor) 10 mg QHS PO 01/05/21 21:00 02/22/21 20:25 Furosemide (Lasix) 40 mg DAILY PO 01/05/21 09:00 02/22/21 08:11 Metoprolol Tartrate (Lopressor) 50 mg BID PO 01/05/21 09:00 02/22/21 20:25 Potassium Chloride (Klor-Con) 20 meq DAILY PO 01/05/21 09:00 01/11/21 15:00 DC 01/11/21 08:57 Polyethylene Glycol (miraLAX) 17 gm DAILY PO 01/05/21 09:00 02/22/21 08:12 Lorazepam (Ativan) 1 mg PRN Q4HRS PRN PO ANXIETY / AGITATION 01/04/21 23:00 01/09/21 10:42 DC 01/07/21 23:07 Lorazepam (Ativan Intensol) 1 mg PRN Q6HRS PRN PO ANXIETY / AGITATION 01/04/21 23:00 01/09/21 17:03 DC Risperidone (RisperDAL) 0.25 mg DAILY PO 01/05/21 09:00 01/22/21 17:34 DC 01/22/21 08:35 Risperidone (RisperDAL) 0.5 mg QHS PO 01/05/21 21:00 01/08/21 17:27 DC 01/07/21 20:28 Melatonin (Melatonin) 6 mg HS PO 01/05/21 21:00 01/08/21 17:27 DC 01/07/21 20:28 Acetaminophen (Tylenol) 650 mg PRN Q6HRS PRN PO MILD PAIN / TEMP > 100.3'F 01/04/21 22:45 01/29/21 14:47 Multi-Ingredient Ointment (Analgesic [place]) 1 abby PRN QID PRN TP MUSCLE PAIN 01/04/21 22:45 Al Hydroxide/Mg Hydroxide (Mylanta Plus Xs) 15 ml PRN AFTMEALHC PRN PO DYSPEPSIA 01/04/21 22:45 Magnesium Hydroxide (Milk Of Magnesia) 2,400 mg PRN QHS PRN PO CONSTIPATION 01/04/21 22:45 Potassium Chloride (Klor-Con) 40 meq 1X ONCE PO 01/05/21 15:45 01/05/21 15:49 DC 01/05/21 17:29 Potassium Chloride (Klor-Con) 20 meq BID PO 01/05/21 21:00 02/22/21 20:25 Sertraline HCl (Zoloft) 25 mg DAILY PO 01/07/21 09:00 01/09/21 18:00 DC 01/09/21 08:24 Sertraline HCl (Zoloft) 50 mg DAILY PO 01/10/21 09:00 01/14/21 11:10 DC 01/14/21 08:11 Melatonin (Melatonin) 3 mg HS PO 01/08/21 21:00 02/22/21 20:25 Trazodone HCl (Desyrel) 50 mg PRN QHS PRN PO INSOMNIA MRX1 01/08/21 17:30 02/18/21 01:00 Risperidone (RisperDAL) 1 mg QHS PO 01/08/21 21:00 01/08/21 19:47 DC Olanzapine (ZyPREXA ZYDIS) 2.5 mg PRN Q2HRS PRN PO PSYCHOSIS 01/08/21 19:45 02/11/21 01:58 Risperidone (RisperDAL) 0.5 mg HS PO 01/08/21 21:00 01/08/21 19:58 DC Risperidone (RisperDAL) 0.25 mg HS PO 01/08/21 20:00 01/08/21 20:01 DC Risperidone (RisperDAL) 0.25 mg HS PO 01/08/21 21:00 01/14/21 11:11 DC 01/13/21 20:11 Lorazepam (Ativan Intensol) 0.25 mg PRN Q6HRS PRN PO ANXIETY / AGITATION 01/09/21 17:15 01/09/21 17:46 DC Lorazepam (Ativan Intensol) 0.25 mg PRN TID PRN PO ANXIETY / AGITATION 01/09/21 17:45 01/19/21 17:50 Trazodone HCl (Desyrel) 50 mg 1445 ONCE PO 01/11/21 14:45 01/11/21 14:54 DC Mirtazapine (Remeron) 7.5 mg QHS PO 01/11/21 21:00 01/18/21 19:49 DC 01/17/21 19:38 Sertraline HCl (Zoloft) 75 mg DAILY PO 01/15/21 09:00 01/19/21 17:19 DC 01/19/21 08:14 Risperidone (RisperDAL) 0.5 mg QHS PO 01/14/21 21:00 02/22/21 20:26 Mirtazapine (Remeron Anum-Tab) 15 mg QHS PO 01/18/21 21:00 02/22/21 20:25 Sertraline HCl (Zoloft) 100 mg DAILY PO 01/20/21 09:00 02/22/21 08:12 Divalproex Sodium (Depakote Sprinkles) 125 mg DAILY PO 01/22/21 09:00 02/22/21 08:11 Divalproex Sodium (Depakote Sprinkles) 125 mg DAILYWSUP PO 01/21/21 17:00 02/22/21 17:14 Risperidone (RisperDAL) 0.5 mg DAILY PO 01/23/21 09:00 02/22/21 08:12 I have reviewed the current psychotropics carefully including drug interactions. Risk benefit ratio favors no change other than as noted in my dictated progress note. 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
[2021-02-23 06:09] VITALS: BP 155/63
[2021-02-23] MEDS: risperiDONE 0.5 MG TABLET. PO SCH ×2 (08:33→20:39)
[2021-02-23] MEDS: FUROSEMIDE 40 MG TABLET PO SCH (08:33)
[2021-02-23] MEDS: METOPROLOL TART IMMED RELEASE 50 MG TABLET PO SCH ×2 (08:33→20:40)
[2021-02-23] MEDS: POLYETHYLENE GLYCOL 3350 17 GM PACKET. PO SCH (08:33)
[2021-02-23] MEDS: DIVALPROEX 125 MG CAP.SPRINK PO SCH ×2 (08:33→17:00)
[2021-02-23] MEDS: SERTRALINE 100 MG TABLET. PO SCH (08:33)
[2021-02-23] MEDS: POTASSIUM CHLORIDE 20 MEQ TABLET.ER. PO SCH ×2 (08:34→20:39)
[2021-02-23 15:50] VITALS: BP 103/66
[2021-02-23] MEDS: ATORVASTATIN CALCIUM 10 MG TABLET. PO SCH (20:39)
[2021-02-23] MEDS: MIRTAZAPINE ODT 15 MG TAB.RAPDIS. PO SCH (20:39)
[2021-02-23] MEDS: MELATONIN 3 MG TABLET PO SCH (20:39)
--- NOTE | 2021-02-23 21:53 | PDOC ---
Exam Note: Devang Note: Please also refer to the separate dictated note~for this date of service dictated separately.~Patient seen individually. Discussed the patient with Nursing staff reviewed the chart.~Reviewed interim history and current functioning. Reviewed vital signs,~Labs/ Radiology~and current medications noted below. Continue current treatment with the changes noted in the dictated addendum note Assessment: Vital Signs/I&O: Vital Signs Date Time Temp Pulse Resp B/P (MAP) Pulse Ox O2 Delivery O2 Flow Rate FiO2 02/23/21 20:40 73 103/66 02/23/21 15:50 98.6 20 95 02/20/21 15:32 Room Air I & O 02/22/21 02/22/21 02/23/21 15:00 23:00 07:00 Intake Total 540 ml 440 ml Balance 540 ml 440 ml Labs: Laboratory Tests Test 02/23/21 05:45 SARS-CoV-2 (PCR) Negative (NEGATIVE) Current Medications: Meds: Laboratory Tests Test 02/23/21 05:45 Coronavirus (COVID-19)(PCR) Negative Current Medications Medications (Trade) Dose Ordered Sig/Marguerite Route PRN Reason Start Time Stop Time Status Last Admin Dose Admin Potassium Chloride (Klor-Con) 40 meq 1X ONCE PO 01/04/21 19:00 01/04/21 19:07 DC 01/04/21 19:16 Acetaminophen (Tylenol) 500 mg PRN Q12HR PRN PO PAIN 01/04/21 23:00 Cancel Atorvastatin Calcium (Lipitor) 10 mg QHS PO 01/05/21 21:00 02/23/21 20:39 Furosemide (Lasix) 40 mg DAILY PO 01/05/21 09:00 02/23/21 08:33 Metoprolol Tartrate (Lopressor) 50 mg BID PO 01/05/21 09:00 02/23/21 20:40 Potassium Chloride (Klor-Con) 20 meq DAILY PO 01/05/21 09:00 01/11/21 15:00 DC 01/11/21 08:57 Polyethylene Glycol (miraLAX) 17 gm DAILY PO 01/05/21 09:00 02/23/21 08:33 Lorazepam (Ativan) 1 mg PRN Q4HRS PRN PO ANXIETY / AGITATION 01/04/21 23:00 01/09/21 10:42 DC 01/07/21 23:07 Lorazepam (Ativan Intensol) 1 mg PRN Q6HRS PRN PO ANXIETY / AGITATION 01/04/21 23:00 01/09/21 17:03 DC Risperidone (RisperDAL) 0.25 mg DAILY PO 01/05/21 09:00 01/22/21 17:34 DC 01/22/21 08:35 Risperidone (RisperDAL) 0.5 mg QHS PO 01/05/21 21:00 01/08/21 17:27 DC 01/07/21 20:28 Melatonin (Melatonin) 6 mg HS PO 01/05/21 21:00 01/08/21 17:27 DC 01/07/21 20:28 Acetaminophen (Tylenol) 650 mg PRN Q6HRS PRN PO MILD PAIN / TEMP > 100.3'F 01/04/21 22:45 01/29/21 14:47 Multi-Ingredient Ointment (Analgesic [place]) 1 abby PRN QID PRN TP MUSCLE PAIN 01/04/21 22:45 Al Hydroxide/Mg Hydroxide (Mylanta Plus Xs) 15 ml PRN AFTMEALHC PRN PO DYSPEPSIA 01/04/21 22:45 Magnesium Hydroxide (Milk Of Magnesia) 2,400 mg PRN QHS PRN PO CONSTIPATION 01/04/21 22:45 Potassium Chloride (Klor-Con) 40 meq 1X ONCE PO 01/05/21 15:45 01/05/21 15:49 DC 01/05/21 17:29 Potassium Chloride (Klor-Con) 20 meq BID PO 01/05/21 21:00 02/23/21 20:39 Sertraline HCl (Zoloft) 25 mg DAILY PO 01/07/21 09:00 01/09/21 18:00 DC 01/09/21 08:24 Sertraline HCl (Zoloft) 50 mg DAILY PO 01/10/21 09:00 01/14/21 11:10 DC 01/14/21 08:11 Melatonin (Melatonin) 3 mg HS PO 01/08/21 21:00 02/23/21 20:39 Trazodone HCl (Desyrel) 50 mg PRN QHS PRN PO INSOMNIA MRX1 01/08/21 17:30 02/18/21 01:00 Risperidone (RisperDAL) 1 mg QHS PO 01/08/21 21:00 01/08/21 19:47 DC Olanzapine (ZyPREXA ZYDIS) 2.5 mg PRN Q2HRS PRN PO PSYCHOSIS 01/08/21 19:45 02/11/21 01:58 Risperidone (RisperDAL) 0.5 mg HS PO 01/08/21 21:00 01/08/21 19:58 DC Risperidone (RisperDAL) 0.25 mg HS PO 01/08/21 20:00 01/08/21 20:01 DC Risperidone (RisperDAL) 0.25 mg HS PO 01/08/21 21:00 01/14/21 11:11 DC 01/13/21 20:11 Lorazepam (Ativan Intensol) 0.25 mg PRN Q6HRS PRN PO ANXIETY / AGITATION 01/09/21 17:15 01/09/21 17:46 DC Lorazepam (Ativan Intensol) 0.25 mg PRN TID PRN PO ANXIETY / AGITATION 01/09/21 17:45 01/19/21 17:50 Trazodone HCl (Desyrel) 50 mg 1445 ONCE PO 01/11/21 14:45 01/11/21 14:54 DC Mirtazapine (Remeron) 7.5 mg QHS PO 01/11/21 21:00 01/18/21 19:49 DC 01/17/21 19:38 Sertraline HCl (Zoloft) 75 mg DAILY PO 01/15/21 09:00 01/19/21 17:19 DC 01/19/21 08:14 Risperidone (RisperDAL) 0.5 mg QHS PO 01/14/21 21:00 02/23/21 20:39 Mirtazapine (Remeron Anum-Tab) 15 mg QHS PO 01/18/21 21:00 02/23/21 20:39 Sertraline HCl (Zoloft) 100 mg DAILY PO 01/20/21 09:00 02/23/21 08:33 Divalproex Sodium (Depakote Sprinkles) 125 mg DAILY PO 01/22/21 09:00 02/23/21 08:33 Divalproex Sodium (Depakote Sprinkles) 125 mg DAILYWSUP PO 01/21/21 17:00 02/23/21 17:00 Risperidone (RisperDAL) 0.5 mg DAILY PO 01/23/21 09:00 02/23/21 08:33 I have reviewed the current psychotropics carefully including drug interactions. Risk benefit ratio favors no change other than as noted in my dictated progress note. 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
[2021-02-24 06:14] VITALS: BP 180/78
--- NOTE | 2021-02-24 06:20 | PDOC ---
Exam Note: Devang Note: This note is a late entry for 02/22/2021overs elements not covered in my initial note. Subjective: The patient was seen face to face in the evening of 02/22/2021 with Reyna MARIANO, discussed and reviewed the chart. The patient slept 7-1/4 hours previous night. Overall she has been fairly appropriate, gets a little frustrated in the showers. I met with her in her room. Review of Systems: No CV, , pulmonary, eye system symptoms on review. Mental Status Exam: The patient is oriented to herself. Insight and judgment, recent and remote memory, attention and concentration is poor consistent with her diagnoses. Laboratory Data: Reviewed. Impression: Major neurocognitive disorder Alzheimer vascular with delusion, depression, and behavioral disturbance. Anxiety disorder unspecified. Impulse control disorder unspecified. Plan: Continue current psychotropics from initial note. Assessment: Vital Signs/I&O: Vital Signs Date Time Temp Pulse Resp B/P (MAP) Pulse Ox O2 Delivery O2 Flow Rate FiO2 02/24/21 06:14 98.0 66 18 180/78 (112) 91 02/20/21 15:32 Room Air I & O 02/23/21 02/23/21 02/24/21 15:00 23:00 07:00 Intake Total 600 ml 120 ml Balance 600 ml 120 ml Current Medications: Meds: Current Medications Medications (Trade) Dose Ordered Sig/Marguerite Route PRN Reason Start Time Stop Time Status Last Admin Dose Admin Potassium Chloride (Klor-Con) 40 meq 1X ONCE PO 01/04/21 19:00 01/04/21 19:07 DC 01/04/21 19:16 Acetaminophen (Tylenol) 500 mg PRN Q12HR PRN PO PAIN 01/04/21 23:00 Cancel Atorvastatin Calcium (Lipitor) 10 mg QHS PO 01/05/21 21:00 02/23/21 20:39 Furosemide (Lasix) 40 mg DAILY PO 01/05/21 09:00 02/23/21 08:33 Metoprolol Tartrate (Lopressor) 50 mg BID PO 01/05/21 09:00 02/23/21 20:40 Potassium Chloride (Klor-Con) 20 meq DAILY PO 01/05/21 09:00 01/11/21 15:00 DC 01/11/21 08:57 Polyethylene Glycol (miraLAX) 17 gm DAILY PO 01/05/21 09:00 02/23/21 08:33 Lorazepam (Ativan) 1 mg PRN Q4HRS PRN PO ANXIETY / AGITATION 01/04/21 23:00 01/09/21 10:42 DC 01/07/21 23:07 Lorazepam (Ativan Intensol) 1 mg PRN Q6HRS PRN PO ANXIETY / AGITATION 01/04/21 23:00 01/09/21 17:03 DC Risperidone (RisperDAL) 0.25 mg DAILY PO 01/05/21 09:00 01/22/21 17:34 DC 01/22/21 08:35 Risperidone (RisperDAL) 0.5 mg QHS PO 01/05/21 21:00 01/08/21 17:27 DC 01/07/21 20:28 Melatonin (Melatonin) 6 mg HS PO 01/05/21 21:00 01/08/21 17:27 DC 01/07/21 20:28 Acetaminophen (Tylenol) 650 mg PRN Q6HRS PRN PO MILD PAIN / TEMP > 100.3'F 01/04/21 22:45 01/29/21 14:47 Multi-Ingredient Ointment (Analgesic [place]) 1 abby PRN QID PRN TP MUSCLE PAIN 01/04/21 22:45 Al Hydroxide/Mg Hydroxide (Mylanta Plus Xs) 15 ml PRN AFTMEALHC PRN PO DYSPEPSIA 01/04/21 22:45 Magnesium Hydroxide (Milk Of Magnesia) 2,400 mg PRN QHS PRN PO CONSTIPATION 01/04/21 22:45 Potassium Chloride (Klor-Con) 40 meq 1X ONCE PO 01/05/21 15:45 01/05/21 15:49 DC 01/05/21 17:29 Potassium Chloride (Klor-Con) 20 meq BID PO 01/05/21 21:00 02/23/21 20:39 Sertraline HCl (Zoloft) 25 mg DAILY PO 01/07/21 09:00 01/09/21 18:00 DC 01/09/21 08:24 Sertraline HCl (Zoloft) 50 mg DAILY PO 01/10/21 09:00 01/14/21 11:10 DC 01/14/21 08:11 Melatonin (Melatonin) 3 mg HS PO 01/08/21 21:00 02/23/21 20:39 Trazodone HCl (Desyrel) 50 mg PRN QHS PRN PO INSOMNIA MRX1 01/08/21 17:30 02/18/21 01:00 Risperidone (RisperDAL) 1 mg QHS PO 01/08/21 21:00 01/08/21 19:47 DC Olanzapine (ZyPREXA ZYDIS) 2.5 mg PRN Q2HRS PRN PO PSYCHOSIS 01/08/21 19:45 02/11/21 01:58 Risperidone (RisperDAL) 0.5 mg HS PO 01/08/21 21:00 01/08/21 19:58 DC Risperidone (RisperDAL) 0.25 mg HS PO 01/08/21 20:00 01/08/21 20:01 DC Risperidone (RisperDAL) 0.25 mg HS PO 01/08/21 21:00 01/14/21 11:11 DC 01/13/21 20:11 Lorazepam (Ativan Intensol) 0.25 mg PRN Q6HRS PRN PO ANXIETY / AGITATION 01/09/21 17:15 01/09/21 17:46 DC Lorazepam (Ativan Intensol) 0.25 mg PRN TID PRN PO ANXIETY / AGITATION 01/09/21 17:45 01/19/21 17:50 Trazodone HCl (Desyrel) 50 mg 1445 ONCE PO 01/11/21 14:45 01/11/21 14:54 DC Mirtazapine (Remeron) 7.5 mg QHS PO 01/11/21 21:00 01/18/21 19:49 DC 01/17/21 19:38 Sertraline HCl (Zoloft) 75 mg DAILY PO 01/15/21 09:00 01/19/21 17:19 DC 01/19/21 08:14 Risperidone (RisperDAL) 0.5 mg QHS PO 01/14/21 21:00 02/23/21 20:39 Mirtazapine (Remeron Anum-Tab) 15 mg QHS PO 01/18/21 21:00 02/23/21 20:39 Sertraline HCl (Zoloft) 100 mg DAILY PO 01/20/21 09:00 02/23/21 08:33 Divalproex Sodium (Depakote Sprinkles) 125 mg DAILY PO 01/22/21 09:00 02/23/21 08:33 Divalproex Sodium (Depakote Sprinkles) 125 mg DAILYWSUP PO 01/21/21 17:00 02/23/21 17:00 Risperidone (RisperDAL) 0.5 mg DAILY PO 01/23/21 09:00 02/23/21 08:33 I have reviewed the current psychotropics carefully including drug interactions. Risk benefit ratio favors no change other than as noted in my dictated progress note. 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
--- NOTE | 2021-02-24 06:33 | PDOC ---
Exam Note: Devang Note: This note is a late entry for 02/23/2021overs elements not covered in my initial note. Subjective: The patient was seen face to face in the evening of 02/23/2021 with Mónica MARIANO, discussed and reviewed the chart. The patient slept 5-1/2 hours previous night. Review of Systems: No CV, , pulmonary, eye system symptoms on review. Reliability poor. Mental Status Exam: The patient is oriented to herself. I met with her in the hallway. She is verbal, interactive, confused, less obsessive. Insight and judgment, recent and remote memory, attention and concentration is poor consistent with her diagnoses. No suicidal or homicidal ideation. Laboratory Data: Reviewed. Impression: Major neurocognitive disorder Alzheimer vascular with delusion, depression, and behavioral disturbance. Anxiety disorder unspecified. Impulse control disorder unspecified. Plan: Continue current psychotropics from initial note. Assessment: Vital Signs/I&O: Vital Signs Date Time Temp Pulse Resp B/P (MAP) Pulse Ox O2 Delivery O2 Flow Rate FiO2 02/24/21 06:14 98.0 66 18 180/78 (112) 91 02/20/21 15:32 Room Air I & O 0 02/23/21 02/23/21 02/24/21 15:00 23:00 07:00 Intake Total 600 ml 120 ml Balance 600 ml 120 ml Current Medications: I have reviewed the current psychotropics carefully including drug interactions. Risk benefit ratio favors no change other than as noted in my dictated progress note. 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
[2021-02-24] MEDS: DIVALPROEX 125 MG CAP.SPRINK PO SCH ×2 (08:26→17:23)
[2021-02-24] MEDS: POLYETHYLENE GLYCOL 3350 17 GM PACKET. PO SCH (08:26)
[2021-02-24] MEDS: FUROSEMIDE 40 MG TABLET PO SCH (08:26)
[2021-02-24] MEDS: SERTRALINE 100 MG TABLET. PO SCH (08:26)
[2021-02-24] MEDS: METOPROLOL TART IMMED RELEASE 50 MG TABLET PO SCH ×2 (08:27→20:38)
[2021-02-24] MEDS: risperiDONE 0.5 MG TABLET. PO SCH ×2 (08:27→20:37)
[2021-02-24] MEDS: POTASSIUM CHLORIDE 20 MEQ TABLET.ER. PO SCH ×2 (08:29→20:38)
[2021-02-24 15:41] VITALS: BP 123/58
[2021-02-24] MEDS: ATORVASTATIN CALCIUM 10 MG TABLET. PO SCH (20:38)
[2021-02-24] MEDS: MELATONIN 3 MG TABLET PO SCH (20:38)
[2021-02-24] MEDS: MIRTAZAPINE ODT 15 MG TAB.RAPDIS. PO SCH (20:38)
--- NOTE | 2021-02-24 22:01 | PDOC ---
Exam Note: Devang Note: Please also refer to the separate dictated note~for this date of service dictated separately.~Patient seen individually. Discussed the patient with Nursing staff reviewed the chart.~Reviewed interim history and current functioning. Reviewed vital signs,~Labs/ Radiology~and current medications noted below. Continue current treatment with the changes noted in the dictated addendum note Assessment: Vital Signs/I&O: Vital Signs Date Time Temp Pulse Resp B/P (MAP) Pulse Ox O2 Delivery O2 Flow Rate FiO2 02/24/21 20:38 65 123/58 02/24/21 15:41 97.5 16 93 02/20/21 15:32 Room Air I & O 02/23/21 02/23/21 02/24/21 15:00 23:00 07:00 Intake Total 600 ml 120 ml Balance 600 ml 120 ml Current Medications: Meds: Current Medications Medications (Trade) Dose Ordered Sig/Marguerite Route PRN Reason Start Time Stop Time Status Last Admin Dose Admin Potassium Chloride (Klor-Con) 40 meq 1X ONCE PO 01/04/21 19:00 01/04/21 19:07 DC 01/04/21 19:16 Acetaminophen (Tylenol) 500 mg PRN Q12HR PRN PO PAIN 01/04/21 23:00 Cancel Atorvastatin Calcium (Lipitor) 10 mg QHS PO 01/05/21 21:00 02/24/21 20:38 Furosemide (Lasix) 40 mg DAILY PO 01/05/21 09:00 02/24/21 08:26 Metoprolol Tartrate (Lopressor) 50 mg BID PO 01/05/21 09:00 02/24/21 20:38 Potassium Chloride (Klor-Con) 20 meq DAILY PO 01/05/21 09:00 01/11/21 15:00 DC 01/11/21 08:57 Polyethylene Glycol (miraLAX) 17 gm DAILY PO 01/05/21 09:00 02/24/21 08:26 Lorazepam (Ativan) 1 mg PRN Q4HRS PRN PO ANXIETY / AGITATION 01/04/21 23:00 01/09/21 10:42 DC 01/07/21 23:07 Lorazepam (Ativan Intensol) 1 mg PRN Q6HRS PRN PO ANXIETY / AGITATION 01/04/21 23:00 01/09/21 17:03 DC Risperidone (RisperDAL) 0.25 mg DAILY PO 01/05/21 09:00 01/22/21 17:34 DC 01/22/21 08:35 Risperidone (RisperDAL) 0.5 mg QHS PO 01/05/21 21:00 01/08/21 17:27 DC 01/07/21 20:28 Melatonin (Melatonin) 6 mg HS PO 01/05/21 21:00 01/08/21 17:27 DC 01/07/21 20:28 Acetaminophen (Tylenol) 650 mg PRN Q6HRS PRN PO MILD PAIN / TEMP > 100.3'F 01/04/21 22:45 01/29/21 14:47 Multi-Ingredient Ointment (Analgesic [place]) 1 abby PRN QID PRN TP MUSCLE PAIN 01/04/21 22:45 Al Hydroxide/Mg Hydroxide (Mylanta Plus Xs) 15 ml PRN AFTMEALHC PRN PO DYSPEPSIA 01/04/21 22:45 Magnesium Hydroxide (Milk Of Magnesia) 2,400 mg PRN QHS PRN PO CONSTIPATION 01/04/21 22:45 Potassium Chloride (Klor-Con) 40 meq 1X ONCE PO 01/05/21 15:45 01/05/21 15:49 DC 01/05/21 17:29 Potassium Chloride (Klor-Con) 20 meq BID PO 01/05/21 21:00 02/24/21 20:38 Sertraline HCl (Zoloft) 25 mg DAILY PO 01/07/21 09:00 01/09/21 18:00 DC 01/09/21 08:24 Sertraline HCl (Zoloft) 50 mg DAILY PO 01/10/21 09:00 01/14/21 11:10 DC 01/14/21 08:11 Melatonin (Melatonin) 3 mg HS PO 01/08/21 21:00 02/24/21 20:38 Trazodone HCl (Desyrel) 50 mg PRN QHS PRN PO INSOMNIA MRX1 01/08/21 17:30 02/18/21 01:00 Risperidone (RisperDAL) 1 mg QHS PO 01/08/21 21:00 01/08/21 19:47 DC Olanzapine (ZyPREXA ZYDIS) 2.5 mg PRN Q2HRS PRN PO PSYCHOSIS 01/08/21 19:45 02/11/21 01:58 Risperidone (RisperDAL) 0.5 mg HS PO 01/08/21 21:00 01/08/21 19:58 DC Risperidone (RisperDAL) 0.25 mg HS PO 01/08/21 20:00 01/08/21 20:01 DC Risperidone (RisperDAL) 0.25 mg HS PO 01/08/21 21:00 01/14/21 11:11 DC 01/13/21 20:11 Lorazepam (Ativan Intensol) 0.25 mg PRN Q6HRS PRN PO ANXIETY / AGITATION 01/09/21 17:15 01/09/21 17:46 DC Lorazepam (Ativan Intensol) 0.25 mg PRN TID PRN PO ANXIETY / AGITATION 01/09/21 17:45 01/19/21 17:50 Trazodone HCl (Desyrel) 50 mg 1445 ONCE PO 01/11/21 14:45 01/11/21 14:54 DC Mirtazapine (Remeron) 7.5 mg QHS PO 01/11/21 21:00 01/18/21 19:49 DC 01/17/21 19:38 Sertraline HCl (Zoloft) 75 mg DAILY PO 01/15/21 09:00 01/19/21 17:19 DC 01/19/21 08:14 Risperidone (RisperDAL) 0.5 mg QHS PO 01/14/21 21:00 02/24/21 20:37 Mirtazapine (Remeron Anum-Tab) 15 mg QHS PO 01/18/21 21:00 02/24/21 20:38 Sertraline HCl (Zoloft) 100 mg DAILY PO 01/20/21 09:00 02/24/21 08:26 Divalproex Sodium (Depakote Sprinkles) 125 mg DAILY PO 01/22/21 09:00 02/24/21 08:26 Divalproex Sodium (Depakote Sprinkles) 125 mg DAILYWSUP PO 01/21/21 17:00 02/24/21 17:23 Risperidone (RisperDAL) 0.5 mg DAILY PO 01/23/21 09:00 02/24/21 08:27 I have reviewed the current psychotropics carefully including drug interactions. Risk benefit ratio favors no change other than as noted in my dictated progress note. 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
[2021-02-24] MEDS ORDERED: DIVA125C2 PO (23:59)
[2021-02-25] MEDS ORDERED: MIRT15TA90 PO (00:01)
[2021-02-25] MEDS ORDERED: SERT100T PO (00:02)
[2021-02-25] MEDS ORDERED: TRAZ-120 PO (00:03)
[2021-02-25] MEDS ORDERED: OLAN5TAB99 PO (00:07)
[2021-02-25] MEDS ORDERED: MAG-124 PO (00:08)
[2021-02-25] MEDS ORDERED: MAGN24003 PO (00:09)
[2021-02-25] MEDS ORDERED: METH57CR17 TP (00:10)
[2021-02-25] MEDS ORDERED: ACET325T21 PO (00:16)
[2021-02-25 06:38] VITALS: BP 179/78
[2021-02-25] MEDS: POTASSIUM CHLORIDE 20 MEQ TABLET.ER. PO SCH ×2 (08:46→21:32)
[2021-02-25] MEDS: DIVALPROEX 125 MG CAP.SPRINK PO SCH ×2 (08:46→17:51)
[2021-02-25] MEDS: FUROSEMIDE 40 MG TABLET PO SCH (08:46)
[2021-02-25] MEDS: METOPROLOL TART IMMED RELEASE 50 MG TABLET PO SCH ×2 (08:46→21:31)
[2021-02-25] MEDS: SERTRALINE 100 MG TABLET. PO SCH (08:46)
[2021-02-25] MEDS: POLYETHYLENE GLYCOL 3350 17 GM PACKET. PO SCH (08:47)
[2021-02-25] MEDS: risperiDONE 0.5 MG TABLET. PO SCH ×2 (08:47→21:32)
--- NOTE | 2021-02-25 10:26 | TX PLAN ---
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 Reasons for Admission: Aggressive, Agitated, Combative, Confusion/Disoriented, Poor impulse control Problem in Patient's Words: According to the intake, pt is aggressive to staff and peers, resistive and combative at times of care, bit a nurse, agitated, irritable and hostile. Problems Active Problems: agitated resistive impulsive non-compliant with medication Inactive Problems: N/A Pt Strengths/Limitations Ability for [place]: Poor Cognitive Functioning/Ability: Fair Communication Skills/Ability: Fair Financial Resources: Fair Insight/Judgement: Fair Intellectual Ability: Fair Physical Health: Poor Social Skills: Poor Stability in Family: Excellent Stability in School/Work: Poor Verbal Skills: Fair Discharge Criteria Discharge Criteria: No need for close observ., Adequate arrangements @DC, Improved behavior, Improved mood/thought Preliminary Discharge Plan Preliminary DC Plan: Placement Needed Special Precautions Fall Risk: Moderate Initial D/C Plan Pt will need a different level of care upon discharge Identified Discharge Needs: Referrals to placement Currently Utilized Resources Currently Utilized Resources/P: Primary Care Physician Identified Problems/Hx/Goals Objectives/Short-Term Goals Short Term Goals: Dec. Aggression, Dec. Outbursts, Medication Stabilization, Promote Coping Skill Short Term Goals in Patient's: N/A Interventions/Frequency Staff Interventions/Frequency&: Psychiatrist to assess pt at least 3x per week for medication stabilization. Social Work to assess pt at least 2x per week to identify barriers to care and finalize discharge plans. Nursing to assess medication effects, behavior management and complete 15 minute checks daily. Encourage group paricipation in activities (if applicable) or 1:1 engagement based off Activity Dept goals. 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 Pt continues to be calm and cooperative with cares; compliant with medications floated in pudding or applesauce. Pt does continue to be a little delusional in thinking staff is family and that one nurse has a racist . Pt attended one group this week with minimal participation. Pt mainly sits in the hallway and is social with some peers. Pt has been accepted to [facility]; however, with the potential positive on the unit, pt is not able to discharge for another 10 days. ELOS is Thursday 03/08. GALINA THOMSON Feb 25, 2021 10:26
[2021-02-25 15:49] VITALS: BP 128/78
[2021-02-25] MEDS: MELATONIN 3 MG TABLET PO SCH (21:31)
[2021-02-25] MEDS: ATORVASTATIN CALCIUM 10 MG TABLET. PO SCH (21:31)
[2021-02-25] MEDS: MIRTAZAPINE ODT 15 MG TAB.RAPDIS. PO SCH (21:32)
--- NOTE | 2021-02-25 21:57 | PDOC ---
Exam Note: Devang Note: Please also refer to the separate dictated note~for this date of service dictated separately.~Patient seen individually. Discussed the patient with Nursing staff reviewed the chart.~Reviewed interim history and current functioning. Reviewed vital signs,~Labs/ Radiology~and current medications noted below. Continue current treatment with the changes noted in the dictated addendum note Assessment: Vital Signs/I&O: Vital Signs Date Time Temp Pulse Resp B/P (MAP) Pulse Ox O2 Delivery O2 Flow Rate FiO2 02/25/21 21:31 71 128/78 02/25/21 15:49 98.0 18 99 02/20/21 15:32 Room Air I & O 02/24/21 02/24/21 02/25/21 15:00 23:00 07:00 Intake Total 720 ml 360 ml Balance 720 ml 360 ml Current Medications: Meds: Current Medications Medications (Trade) Dose Ordered Sig/Marguerite Route PRN Reason Start Time Stop Time Status Last Admin Dose Admin Potassium Chloride (Klor-Con) 40 meq 1X ONCE PO 01/04/21 19:00 01/04/21 19:07 DC 01/04/21 19:16 Acetaminophen (Tylenol) 500 mg PRN Q12HR PRN PO PAIN 01/04/21 23:00 Cancel Atorvastatin Calcium (Lipitor) 10 mg QHS PO 01/05/21 21:00 02/25/21 21:31 Furosemide (Lasix) 40 mg DAILY PO 01/05/21 09:00 02/25/21 08:46 Metoprolol Tartrate (Lopressor) 50 mg BID PO 01/05/21 09:00 02/25/21 21:31 Potassium Chloride (Klor-Con) 20 meq DAILY PO 01/05/21 09:00 01/11/21 15:00 DC 01/11/21 08:57 Polyethylene Glycol (miraLAX) 17 gm DAILY PO 01/05/21 09:00 02/25/21 08:47 Lorazepam (Ativan) 1 mg PRN Q4HRS PRN PO ANXIETY / AGITATION 01/04/21 23:00 01/09/21 10:42 DC 01/07/21 23:07 Lorazepam (Ativan Intensol) 1 mg PRN Q6HRS PRN PO ANXIETY / AGITATION 01/04/21 23:00 01/09/21 17:03 DC Risperidone (RisperDAL) 0.25 mg DAILY PO 01/05/21 09:00 01/22/21 17:34 DC 01/22/21 08:35 Risperidone (RisperDAL) 0.5 mg QHS PO 01/05/21 21:00 01/08/21 17:27 DC 01/07/21 20:28 Melatonin (Melatonin) 6 mg HS PO 01/05/21 21:00 01/08/21 17:27 DC 01/07/21 20:28 Acetaminophen (Tylenol) 650 mg PRN Q6HRS PRN PO MILD PAIN / TEMP > 100.3'F 01/04/21 22:45 01/29/21 14:47 Multi-Ingredient Ointment (Analgesic [place]) 1 abby PRN QID PRN TP MUSCLE PAIN 01/04/21 22:45 Al Hydroxide/Mg Hydroxide (Mylanta Plus Xs) 15 ml PRN AFTMEALHC PRN PO DYSPEPSIA 01/04/21 22:45 Magnesium Hydroxide (Milk Of Magnesia) 2,400 mg PRN QHS PRN PO CONSTIPATION 01/04/21 22:45 Potassium Chloride (Klor-Con) 40 meq 1X ONCE PO 01/05/21 15:45 01/05/21 15:49 DC 01/05/21 17:29 Potassium Chloride (Klor-Con) 20 meq BID PO 01/05/21 21:00 02/25/21 21:32 Sertraline HCl (Zoloft) 25 mg DAILY PO 01/07/21 09:00 01/09/21 18:00 DC 01/09/21 08:24 Sertraline HCl (Zoloft) 50 mg DAILY PO 01/10/21 09:00 01/14/21 11:10 DC 01/14/21 08:11 Melatonin (Melatonin) 3 mg HS PO 01/08/21 21:00 02/25/21 21:31 Trazodone HCl (Desyrel) 50 mg PRN QHS PRN PO INSOMNIA MRX1 01/08/21 17:30 02/18/21 01:00 Risperidone (RisperDAL) 1 mg QHS PO 01/08/21 21:00 01/08/21 19:47 DC Olanzapine (ZyPREXA ZYDIS) 2.5 mg PRN Q2HRS PRN PO PSYCHOSIS 01/08/21 19:45 02/11/21 01:58 Risperidone (RisperDAL) 0.5 mg HS PO 01/08/21 21:00 01/08/21 19:58 DC Risperidone (RisperDAL) 0.25 mg HS PO 01/08/21 20:00 01/08/21 20:01 DC Risperidone (RisperDAL) 0.25 mg HS PO 01/08/21 21:00 01/14/21 11:11 DC 01/13/21 20:11 Lorazepam (Ativan Intensol) 0.25 mg PRN Q6HRS PRN PO ANXIETY / AGITATION 01/09/21 17:15 01/09/21 17:46 DC Lorazepam (Ativan Intensol) 0.25 mg PRN TID PRN PO ANXIETY / AGITATION 01/09/21 17:45 01/19/21 17:50 Trazodone HCl (Desyrel) 50 mg 1445 ONCE PO 01/11/21 14:45 01/11/21 14:54 DC Mirtazapine (Remeron) 7.5 mg QHS PO 01/11/21 21:00 01/18/21 19:49 DC 01/17/21 19:38 Sertraline HCl (Zoloft) 75 mg DAILY PO 01/15/21 09:00 01/19/21 17:19 DC 01/19/21 08:14 Risperidone (RisperDAL) 0.5 mg QHS PO 01/14/21 21:00 02/25/21 21:32 Mirtazapine (Remeron Anum-Tab) 15 mg QHS PO 01/18/21 21:00 02/25/21 21:32 Sertraline HCl (Zoloft) 100 mg DAILY PO 01/20/21 09:00 02/25/21 08:46 Divalproex Sodium (Depakote Sprinkles) 125 mg DAILY PO 01/22/21 09:00 02/25/21 08:46 Divalproex Sodium (Depakote Sprinkles) 125 mg DAILYWSUP PO 01/21/21 17:00 02/25/21 17:51 Risperidone (RisperDAL) 0.5 mg DAILY PO 01/23/21 09:00 02/25/21 08:47 I have reviewed the current psychotropics carefully including drug interactions. Risk benefit ratio favors no change other than as noted in my dictated progress note. Diagnosis: Problems: (1) Dementia in Alzheimer's disease with depression (2) Dementia in Alzheimer's disease with delusions (3) Dementia of the Alzheimer's type with early onset with behavioral disturbance (4) Major neurocognitive disorder (5) Impulse control disorder, unspecified (6) Anxiety disorder, unspecified (7) Dementia, vascular, with depression (8) Dementia, vascular, with delusions OFE MONTENEGRO MD Feb 25, 2021 21:57
[2021-02-26 06:14] VITALS: BP 179/73
--- NOTE | 2021-02-26 06:21 | PDOC ---
Exam Note: Devang Note: This note is a late entry for 02/24/2021overs elements not covered in my initial note. Subjective: The patient was seen face to face in the evening of 02/24/2021 with Mónica MARIANO, discussed and reviewed the chart. The patient slept 5-1/4 hours previous night. Overall the patient remains confused but not aggressive. I met with her in her room. Review of Systems: No CV, , pulmonary, eye system symptoms on review. She reacted to me by referring to me as doctor. Mental Status Exam: The patient is oriented to herself. She is verbal, interactive, confused. Insight and judgment, recent and remote memory, attention and concentration is poor consistent with her diagnoses. No suicidal or homicidal ideation. Laboratory Data: Reviewed. Impression: Major neurocognitive disorder Alzheimer vascular with delusion, depression, and behavioral disturbance. Anxiety disorder unspecified. Impulse control disorder unspecified. Plan: Continue current psychotropics from initial note. Assessment: Vital Signs/I&O: Vital Signs Date Time Temp Pulse Resp B/P (MAP) Pulse Ox O2 Delivery O2 Flow Rate FiO2 02/26/21 06:14 97.4 73 20 179/73 (108) 98 02/20/21 15:32 Room Air I & O 02/25/21 02/25/21 02/26/21 15:00 23:00 07:00 Intake Total 600 ml 120 ml Balance 600 ml 120 ml Current Medications: Meds: Current Medications Medications (Trade) Dose Ordered Sig/Marguerite Route PRN Reason Start Time Stop Time Status Last Admin Dose Admin Potassium Chloride (Klor-Con) 40 meq 1X ONCE PO 01/04/21 19:00 01/04/21 19:07 DC 01/04/21 19:16 Acetaminophen (Tylenol) 500 mg PRN Q12HR PRN PO PAIN 01/04/21 23:00 Cancel Atorvastatin Calcium (Lipitor) 10 mg QHS PO 01/05/21 21:00 02/25/21 21:31 Furosemide (Lasix) 40 mg DAILY PO 01/05/21 09:00 02/25/21 08:46 Metoprolol Tartrate (Lopressor) 50 mg BID PO 01/05/21 09:00 02/25/21 21:31 Potassium Chloride (Klor-Con) 20 meq DAILY PO 01/05/21 09:00 01/11/21 15:00 DC 01/11/21 08:57 Polyethylene Glycol (miraLAX) 17 gm DAILY PO 01/05/21 09:00 02/25/21 08:47 Lorazepam (Ativan) 1 mg PRN Q4HRS PRN PO ANXIETY / AGITATION 01/04/21 23:00 01/09/21 10:42 DC 01/07/21 23:07 Lorazepam (Ativan Intensol) 1 mg PRN Q6HRS PRN PO ANXIETY / AGITATION 01/04/21 23:00 01/09/21 17:03 DC Risperidone (RisperDAL) 0.25 mg DAILY PO 01/05/21 09:00 01/22/21 17:34 DC 01/22/21 08:35 Risperidone (RisperDAL) 0.5 mg QHS PO 01/05/21 21:00 01/08/21 17:27 DC 01/07/21 20:28 Melatonin (Melatonin) 6 mg HS PO 01/05/21 21:00 01/08/21 17:27 DC 01/07/21 20:28 Acetaminophen (Tylenol) 650 mg PRN Q6HRS PRN PO MILD PAIN / TEMP > 100.3'F 01/04/21 22:45 01/29/21 14:47 Multi-Ingredient Ointment (Analgesic [place]) 1 abby PRN QID PRN TP MUSCLE PAIN 01/04/21 22:45 Al Hydroxide/Mg Hydroxide (Mylanta Plus Xs) 15 ml PRN AFTMEALHC PRN PO DYSPEPSIA 01/04/21 22:45 Magnesium Hydroxide (Milk Of Magnesia) 2,400 mg PRN QHS PRN PO CONSTIPATION 01/04/21 22:45 Potassium Chloride (Klor-Con) 40 meq 1X ONCE PO 01/05/21 15:45 01/05/21 15:49 DC 01/05/21 17:29 Potassium Chloride (Klor-Con) 20 meq BID PO 01/05/21 21:00 02/25/21 21:32 Sertraline HCl (Zoloft) 25 mg DAILY PO 01/07/21 09:00 01/09/21 18:00 DC 01/09/21 08:24 Sertraline HCl (Zoloft) 50 mg DAILY PO 01/10/21 09:00 01/14/21 11:10 DC 01/14/21 08:11 Melatonin (Melatonin) 3 mg HS PO 01/08/21 21:00 02/25/21 21:31 Trazodone HCl (Desyrel) 50 mg PRN QHS PRN PO INSOMNIA MRX1 01/08/21 17:30 02/18/21 01:00 Risperidone (RisperDAL) 1 mg QHS PO 01/08/21 21:00 01/08/21 19:47 DC Olanzapine (ZyPREXA ZYDIS) 2.5 mg PRN Q2HRS PRN PO PSYCHOSIS 01/08/21 19:45 02/11/21 01:58 Risperidone (RisperDAL) 0.5 mg HS PO 01/08/21 21:00 01/08/21 19:58 DC Risperidone (RisperDAL) 0.25 mg HS PO 01/08/21 20:00 01/08/21 20:01 DC Risperidone (RisperDAL) 0.25 mg HS PO 01/08/21 21:00 01/14/21 11:11 DC 01/13/21 20:11 Lorazepam (Ativan Intensol) 0.25 mg PRN Q6HRS PRN PO ANXIETY / AGITATION 01/09/21 17:15 01/09/21 17:46 DC Lorazepam (Ativan Intensol) 0.25 mg PRN TID PRN PO ANXIETY / AGITATION 01/09/21 17:45 01/19/21 17:50 Trazodone HCl (Desyrel) 50 mg 1445 ONCE PO 01/11/21 14:45 01/11/21 14:54 DC Mirtazapine (Remeron) 7.5 mg QHS PO 01/11/21 21:00 01/18/21 19:49 DC 01/17/21 19:38 Sertraline HCl (Zoloft) 75 mg DAILY PO 01/15/21 09:00 01/19/21 17:19 DC 01/19/21 08:14 Risperidone (RisperDAL) 0.5 mg QHS PO 01/14/21 21:00 02/25/21 21:32 Mirtazapine (Remeron Anum-Tab) 15 mg QHS PO 01/18/21 21:00 02/25/21 21:32 Sertraline HCl (Zoloft) 100 mg DAILY PO 01/20/21 09:00 02/25/21 08:46 Divalproex Sodium (Depakote Sprinkles) 125 mg DAILY PO 01/22/21 09:00 02/25/21 08:46 Divalproex Sodium (Depakote Sprinkles) 125 mg DAILYWSUP PO 01/21/21 17:00 02/25/21 17:51 Risperidone (RisperDAL) 0.5 mg DAILY PO 01/23/21 09:00 02/25/21 08:47 I have reviewed the current psychotropics carefully including drug interactions. Risk benefit ratio favors no change other than as noted in my dictated progress note. Diagnosis: Problems: (1) Dementia in Alzheimer's disease with depression (2) Dementia in Alzheimer's disease with delusions (3) Dementia of the Alzheimer's type with early onset with behavioral disturbance (4) Major neurocognitive disorder (5) Impulse control disorder, unspecified (6) Anxiety disorder, unspecified (7) Dementia, vascular, with depression (8) Dementia, vascular, with delusions OFE MONTENEGRO MD Feb 26, 2021 06:21
--- NOTE | 2021-02-26 06:34 | PDOC ---
Exam Note: Devang Note: This note is a late entry for 02/25/2021overs elements not covered in my initial note. Subjective: The patient was reviewed at treatment team meeting individually in the morning on 02/25/2021 with Karli Villegas, Alejandra Pena (social psychologist), Judith, activity therapy and Lam MARIANO, discussed and reviewed the chart. The patient slept 8 hours previous night. Appetite is 75%. She is confused, attended one group in the past one week. She reportedly had a rather lengthy conversation with a female nursing staff and previous night appeared confused and talking about her not liking colored people, somewhat disconnected in her thought processes. Review of Systems: No CV, , pulmonary, eye system symptoms on review. Reliability poor. Mental Status Exam: The patient is oriented to herself. Insight and judgment, recent and remote memory, attention and concentration is poor consistent with her diagnoses. No suicidal or homicidal ideation. Laboratory Data: Reviewed. Impression: Major neurocognitive disorder Alzheimer vascular with delusion, depression, and behavioral disturbance. Anxiety disorder unspecified. Impulse control disorder unspecified. Plan: Continue current psychotropics from initial note. [facility] will only accept the patient after the isolation period is completed on 03/08 since there is COVID exposure on the unit. We will check CBC, CMP in the morning. Assessment: Vital Signs/I&O: Vital Signs Date Time Temp Pulse Resp B/P (MAP) Pulse Ox O2 Delivery O2 Flow Rate FiO2 02/26/21 06:14 97.4 73 20 179/73 (108) 98 02/20/21 15:32 Room Air I & O 0 02/25/21 02/25/21 02/26/21 15:00 23:00 07:00 Intake Total 600 ml 120 ml Balance 600 ml 120 ml Current Medications: Meds: Current Medications Medications (Trade) Dose Ordered Sig/Marguerite Route PRN Reason Start Time Stop Time Status Last Admin Dose Admin Potassium Chloride (Klor-Con) 40 meq 1X ONCE PO 01/04/21 19:00 01/04/21 19:07 DC 01/04/21 19:16 Acetaminophen (Tylenol) 500 mg PRN Q12HR PRN PO PAIN 01/04/21 23:00 Cancel Atorvastatin Calcium (Lipitor) 10 mg QHS PO 01/05/21 21:00 02/25/21 21:31 Furosemide (Lasix) 40 mg DAILY PO 01/05/21 09:00 02/25/21 08:46 Metoprolol Tartrate (Lopressor) 50 mg BID PO 01/05/21 09:00 02/25/21 21:31 Potassium Chloride (Klor-Con) 20 meq DAILY PO 01/05/21 09:00 01/11/21 15:00 DC 01/11/21 08:57 Polyethylene Glycol (miraLAX) 17 gm DAILY PO 01/05/21 09:00 02/25/21 08:47 Lorazepam (Ativan) 1 mg PRN Q4HRS PRN PO ANXIETY / AGITATION 01/04/21 23:00 01/09/21 10:42 DC 01/07/21 23:07 Lorazepam (Ativan Intensol) 1 mg PRN Q6HRS PRN PO ANXIETY / AGITATION 01/04/21 23:00 01/09/21 17:03 DC Risperidone (RisperDAL) 0.25 mg DAILY PO 01/05/21 09:00 01/22/21 17:34 DC 01/22/21 08:35 Risperidone (RisperDAL) 0.5 mg QHS PO 01/05/21 21:00 01/08/21 17:27 DC 01/07/21 20:28 Melatonin (Melatonin) 6 mg HS PO 01/05/21 21:00 01/08/21 17:27 DC 01/07/21 20:28 Acetaminophen (Tylenol) 650 mg PRN Q6HRS PRN PO MILD PAIN / TEMP > 100.3'F 01/04/21 22:45 01/29/21 14:47 Multi-Ingredient Ointment (Analgesic [place]) 1 abby PRN QID PRN TP MUSCLE PAIN 01/04/21 22:45 Al Hydroxide/Mg Hydroxide (Mylanta Plus Xs) 15 ml PRN AFTMEALHC PRN PO DYSPEPSIA 01/04/21 22:45 Magnesium Hydroxide (Milk Of Magnesia) 2,400 mg PRN QHS PRN PO CONSTIPATION 01/04/21 22:45 Potassium Chloride (Klor-Con) 40 meq 1X ONCE PO 01/05/21 15:45 01/05/21 15:49 DC 01/05/21 17:29 Potassium Chloride (Klor-Con) 20 meq BID PO 01/05/21 21:00 02/25/21 21:32 Sertraline HCl (Zoloft) 25 mg DAILY PO 01/07/21 09:00 01/09/21 18:00 DC 01/09/21 08:24 Sertraline HCl (Zoloft) 50 mg DAILY PO 01/10/21 09:00 01/14/21 11:10 DC 01/14/21 08:11 Melatonin (Melatonin) 3 mg HS PO 01/08/21 21:00 02/25/21 21:31 Trazodone HCl (Desyrel) 50 mg PRN QHS PRN PO INSOMNIA MRX1 01/08/21 17:30 02/18/21 01:00 Risperidone (RisperDAL) 1 mg QHS PO 01/08/21 21:00 01/08/21 19:47 DC Olanzapine (ZyPREXA ZYDIS) 2.5 mg PRN Q2HRS PRN PO PSYCHOSIS 01/08/21 19:45 02/11/21 01:58 Risperidone (RisperDAL) 0.5 mg HS PO 01/08/21 21:00 01/08/21 19:58 DC Risperidone (RisperDAL) 0.25 mg HS PO 01/08/21 20:00 01/08/21 20:01 DC Risperidone (RisperDAL) 0.25 mg HS PO 01/08/21 21:00 01/14/21 11:11 DC 01/13/21 20:11 Lorazepam (Ativan Intensol) 0.25 mg PRN Q6HRS PRN PO ANXIETY / AGITATION 01/09/21 17:15 01/09/21 17:46 DC Lorazepam (Ativan Intensol) 0.25 mg PRN TID PRN PO ANXIETY / AGITATION 01/09/21 17:45 01/19/21 17:50 Trazodone HCl (Desyrel) 50 mg 1445 ONCE PO 01/11/21 14:45 01/11/21 14:54 DC Mirtazapine (Remeron) 7.5 mg QHS PO 01/11/21 21:00 01/18/21 19:49 DC 01/17/21 19:38 Sertraline HCl (Zoloft) 75 mg DAILY PO 01/15/21 09:00 01/19/21 17:19 DC 01/19/21 08:14 Risperidone (RisperDAL) 0.5 mg QHS PO 01/14/21 21:00 02/25/21 21:32 Mirtazapine (Remeron Anum-Tab) 15 mg QHS PO 01/18/21 21:00 02/25/21 21:32 Sertraline HCl (Zoloft) 100 mg DAILY PO 01/20/21 09:00 02/25/21 08:46 Divalproex Sodium (Depakote Sprinkles) 125 mg DAILY PO 01/22/21 09:00 02/25/21 08:46 Divalproex Sodium (Depakote Sprinkles) 125 mg DAILYWSUP PO 01/21/21 17:00 02/25/21 17:51 Risperidone (RisperDAL) 0.5 mg DAILY PO 01/23/21 09:00 02/25/21 08:47 I have reviewed the current psychotropics carefully including drug interactions. Risk benefit ratio favors no change other than as noted in my dictated progress note. Diagnosis: Problems: (1) Dementia in Alzheimer's disease with depression (2) Dementia in Alzheimer's disease with delusions (3) Dementia of the Alzheimer's type with early onset with behavioral disturbance (4) Major neurocognitive disorder (5) Impulse control disorder, unspecified (6) Anxiety disorder, unspecified (7) Dementia, vascular, with depression (8) Dementia, vascular, with delusions OFE MONTENEGRO MD Feb 26, 2021 06:33
[2021-02-26 07:27] LABS: BASO % 1 % (0-3); EOS # 0.3 x10^3/uL (0.0-0.7); EOS % 8 % (0-3); HEMATOCRIT 33.6 % (36.0-47.0); HEMOGLOBIN 11.1 g/dL (12.0-15.5); LYMPH # 0.9 x10^3/uL (1.0-4.8); LYMPH % 24 % (24-48); MEAN CORPUSCULAR HEMOGLOBIN 33 pg (25-35); MEAN CORPUSCULAR HGB CONC 33 g/dL (31-37); MEAN CORPUSCULAR VOLUME 100 fL (79-100); MONO # 0.6 x10^3/uL (0.0-1.1); MONO % 15 % (0-9); NEUT # 1.9 x10^3uL (1.8-7.7); NEUT % 51 % (31-73); PLATELET COUNT 191 x10^3/uL (140-400); RED BLOOD COUNT 3.37 x10^6/uL (3.50-5.40); RED CELL DISTRIBUTION WIDTH 14.6 % (11.5-14.5); WHITE BLOOD COUNT 3.8 x10^3/uL (4.0-11.0)
[2021-02-26 07:57] LABS: ALBUMIN 3.4 g/dL (3.4-5.0); ALBUMIN/GLOBULIN RATIO 0.9 (1.0-1.7); CALCIUM 8.5 mg/dL (8.5-10.1); CREATININE 0.9 mg/dL (0.6-1.0); GFR 59.4; POTASSIUM 4.1 mmol/L (3.5-5.1); TOTAL BILIRUBIN 0.4 mg/dL (0.2-1.0); TOTAL PROTEIN 7.3 g/dL (6.4-8.2)
[2021-02-26] MEDS: DIVALPROEX 125 MG CAP.SPRINK PO SCH ×2 (09:09→17:11)
[2021-02-26] MEDS: risperiDONE 0.5 MG TABLET. PO SCH ×2 (09:09→20:09)
[2021-02-26] MEDS: METOPROLOL TART IMMED RELEASE 50 MG TABLET PO SCH ×2 (09:10→20:10)
[2021-02-26] MEDS: FUROSEMIDE 40 MG TABLET PO SCH (09:10)
[2021-02-26] MEDS: SERTRALINE 100 MG TABLET. PO SCH (09:10)
[2021-02-26] MEDS: POTASSIUM CHLORIDE 20 MEQ TABLET.ER. PO SCH ×2 (09:10→20:09)
[2021-02-26] MEDS: POLYETHYLENE GLYCOL 3350 17 GM PACKET. PO SCH (09:10)
[2021-02-26] MEDS: LORazepam INTENSOL 2 MG/ML BOTTLE PO PRN (13:48)
[2021-02-26 16:00] VITALS: BP 144/76
[2021-02-26] MEDS: MELATONIN 3 MG TABLET PO SCH (20:09)
[2021-02-26] MEDS: ATORVASTATIN CALCIUM 10 MG TABLET. PO SCH (20:09)
[2021-02-26] MEDS: MIRTAZAPINE ODT 15 MG TAB.RAPDIS. PO SCH (20:09)
--- NOTE | 2021-02-26 22:07 | PDOC ---
Exam Note: Devang Note: Please also refer to the separate dictated note~for this date of service dictated separately.~Patient seen individually. Discussed the patient with Nursing staff reviewed the chart.~Reviewed interim history and current functioning. Reviewed vital signs,~Labs/ Radiology~and current medications noted below. Continue current treatment with the changes noted in the dictated addendum note Assessment: Vital Signs/I&O: Vital Signs Date Time Temp Pulse Resp B/P (MAP) Pulse Ox O2 Delivery O2 Flow Rate FiO2 02/26/21 20:10 65 144/76 02/26/21 16:00 97.2 16 96 Room Air I & O 02/25/21 02/25/21 02/26/21 15:00 23:00 07:00 Intake Total 600 ml 120 ml Balance 600 ml 120 ml Labs: Laboratory Tests Test 02/26/21 07:12 White Blood Count 3.8 x10^3/uL (4.0-11.0) L Red Blood Count 3.37 x10^6/uL (3.50-5.40) L Hemoglobin 11.1 g/dL (12.0-15.5) L Hematocrit 33.6 % (36.0-47.0) L Mean Corpuscular Volume 100 fL (79-100) Mean Corpuscular Hemoglobin 33 pg (25-35) Mean Corpuscular Hemoglobin Concent 33 g/dL (31-37) Red Cell Distribution Width 14.6 % (11.5-14.5) H Platelet Count 191 x10^3/uL (140-400) Neutrophils (%) (Auto) 51 % (31-73) Lymphocytes (%) (Auto) 24 % (24-48) Monocytes (%) (Auto) 15 % (0-9) H Eosinophils (%) (Auto) 8 % (0-3) H Basophils (%) (Auto) 1 % (0-3) Neutrophils # (Auto) 1.9 x10^3uL (1.8-7.7) Lymphocytes # (Auto) 0.9 x10^3/uL (1.0-4.8) L Monocytes # (Auto) 0.6 x10^3/uL (0.0-1.1) Eosinophils # (Auto) 0.3 x10^3/uL (0.0-0.7) Basophils # (Auto) 0.0 x10^3/uL (0.0-0.2) Sodium Level 142 mmol/L (136-145) Potassium Level 4.1 mmol/L (3.5-5.1) Chloride Level 104 mmol/L (98-107) Carbon Dioxide Level 33 mmol/L (21-32) H Anion Gap 5 (6-14) L Blood Urea Nitrogen 31 mg/dL (7-20) H Creatinine 0.9 mg/dL (0.6-1.0) Estimated GFR (Cockcroft-Gault) 59.4 BUN/Creatinine Ratio 34 (6-20) H Glucose Level 108 mg/dL (70-99) H Calcium Level 8.5 mg/dL (8.5-10.1) Total Bilirubin 0.4 mg/dL (0.2-1.0) Aspartate Amino Transferase (AST) 25 U/L (15-37) Alanine Aminotransferase (ALT) 23 U/L (14-59) Alkaline Phosphatase 62 U/L (46-116) Total Protein 7.3 g/dL (6.4-8.2) Albumin 3.4 g/dL (3.4-5.0) Albumin/Globulin Ratio 0.9 (1.0-1.7) L Current Medications: Meds: Laboratory Tests Test 02/26/21 07:12 White Blood Count 3.8 x10^3/uL Red Blood Count 3.37 x10^6/uL Hemoglobin 11.1 g/dL Hematocrit 33.6 % Mean Corpuscular Volume 100 fL Mean Corpuscular Hemoglobin 33 pg Mean Corpuscular Hemoglobin Concent 33 g/dL Red Cell Distribution Width 14.6 % Platelet Count 191 x10^3/uL Neutrophils (%) (Auto) 51 % Lymphocytes (%) (Auto) 24 % Monocytes (%) (Auto) 15 % Eosinophils (%) (Auto) 8 % Basophils (%) (Auto) 1 % Neutrophils # (Auto) 1.9 x10^3uL Lymphocytes # (Auto) 0.9 x10^3/uL Monocytes # (Auto) 0.6 x10^3/uL Eosinophils # (Auto) 0.3 x10^3/uL Basophils # (Auto) 0.0 x10^3/uL Sodium Level 142 mmol/L Potassium Level 4.1 mmol/L Chloride Level 104 mmol/L Carbon Dioxide Level 33 mmol/L Anion Gap 5 Blood Urea Nitrogen 31 mg/dL Creatinine 0.9 mg/dL Estimated GFR (Cockcroft-Gault) 59.4 BUN/Creatinine Ratio 34 Glucose Level 108 mg/dL Calcium Level 8.5 mg/dL Total Bilirubin 0.4 mg/dL Aspartate Amino Transf (AST/SGOT) 25 U/L Alanine Aminotransferase (ALT/SGPT) 23 U/L Alkaline Phosphatase 62 U/L Total Protein 7.3 g/dL Albumin 3.4 g/dL Albumin/Globulin Ratio 0.9 Current Medications Medications (Trade) Dose Ordered Sig/Marguerite Route PRN Reason Start Time Stop Time Status Last Admin Dose Admin Potassium Chloride (Klor-Con) 40 meq 1X ONCE PO 01/04/21 19:00 01/04/21 19:07 DC 01/04/21 19:16 Acetaminophen (Tylenol) 500 mg PRN Q12HR PRN PO PAIN 01/04/21 23:00 Cancel Atorvastatin Calcium (Lipitor) 10 mg QHS PO 01/05/21 21:00 02/26/21 20:09 Furosemide (Lasix) 40 mg DAILY PO 01/05/21 09:00 02/26/21 09:10 Metoprolol Tartrate (Lopressor) 50 mg BID PO 01/05/21 09:00 02/26/21 20:10 Potassium Chloride (Klor-Con) 20 meq DAILY PO 01/05/21 09:00 01/11/21 15:00 DC 01/11/21 08:57 Polyethylene Glycol (miraLAX) 17 gm DAILY PO 01/05/21 09:00 02/26/21 09:10 Lorazepam (Ativan) 1 mg PRN Q4HRS PRN PO ANXIETY / AGITATION 01/04/21 23:00 01/09/21 10:42 DC 01/07/21 23:07 Lorazepam (Ativan Intensol) 1 mg PRN Q6HRS PRN PO ANXIETY / AGITATION 01/04/21 23:00 01/09/21 17:03 DC Risperidone (RisperDAL) 0.25 mg DAILY PO 01/05/21 09:00 01/22/21 17:34 DC 01/22/21 08:35 Risperidone (RisperDAL) 0.5 mg QHS PO 01/05/21 21:00 01/08/21 17:27 DC 01/07/21 20:28 Melatonin (Melatonin) 6 mg HS PO 01/05/21 21:00 01/08/21 17:27 DC 01/07/21 20:28 Acetaminophen (Tylenol) 650 mg PRN Q6HRS PRN PO MILD PAIN / TEMP > 100.3'F 01/04/21 22:45 01/29/21 14:47 Multi-Ingredient Ointment (Analgesic [place]) 1 abby PRN QID PRN TP MUSCLE PAIN 01/04/21 22:45 Al Hydroxide/Mg Hydroxide (Mylanta Plus Xs) 15 ml PRN AFTMEALHC PRN PO DYSPEPSIA 01/04/21 22:45 Magnesium Hydroxide (Milk Of Magnesia) 2,400 mg PRN QHS PRN PO CONSTIPATION 01/04/21 22:45 Potassium Chloride (Klor-Con) 40 meq 1X ONCE PO 01/05/21 15:45 01/05/21 15:49 DC 01/05/21 17:29 Potassium Chloride (Klor-Con) 20 meq BID PO 01/05/21 21:00 02/26/21 20:09 Sertraline HCl (Zoloft) 25 mg DAILY PO 01/07/21 09:00 01/09/21 18:00 DC 01/09/21 08:24 Sertraline HCl (Zoloft) 50 mg DAILY PO 01/10/21 09:00 01/14/21 11:10 DC 01/14/21 08:11 Melatonin (Melatonin) 3 mg HS PO 01/08/21 21:00 02/26/21 20:09 Trazodone HCl (Desyrel) 50 mg PRN QHS PRN PO INSOMNIA MRX1 01/08/21 17:30 02/18/21 01:00 Risperidone (RisperDAL) 1 mg QHS PO 01/08/21 21:00 01/08/21 19:47 DC Olanzapine (ZyPREXA ZYDIS) 2.5 mg PRN Q2HRS PRN PO PSYCHOSIS 01/08/21 19:45 02/26/21 13:48 Risperidone (RisperDAL) 0.5 mg HS PO 01/08/21 21:00 01/08/21 19:58 DC Risperidone (RisperDAL) 0.25 mg HS PO 01/08/21 20:00 01/08/21 20:01 DC Risperidone (RisperDAL) 0.25 mg HS PO 01/08/21 21:00 01/14/21 11:11 DC 01/13/21 20:11 Lorazepam (Ativan Intensol) 0.25 mg PRN Q6HRS PRN PO ANXIETY / AGITATION 01/09/21 17:15 01/09/21 17:46 DC Lorazepam (Ativan Intensol) 0.25 mg PRN TID PRN PO ANXIETY / AGITATION 01/09/21 17:45 02/26/21 13:48 Trazodone HCl (Desyrel) 50 mg 1445 ONCE PO 01/11/21 14:45 01/11/21 14:54 DC Mirtazapine (Remeron) 7.5 mg QHS PO 01/11/21 21:00 01/18/21 19:49 DC 01/17/21 19:38 Sertraline HCl (Zoloft) 75 mg DAILY PO 01/15/21 09:00 01/19/21 17:19 DC 01/19/21 08:14 Risperidone (RisperDAL) 0.5 mg QHS PO 01/14/21 21:00 02/26/21 20:09 Mirtazapine (Remeron Anum-Tab) 15 mg QHS PO 01/18/21 21:00 02/26/21 20:09 Sertraline HCl (Zoloft) 100 mg DAILY PO 01/20/21 09:00 02/26/21 09:10 Divalproex Sodium (Depakote Sprinkles) 125 mg DAILY PO 01/22/21 09:00 02/26/21 09:09 Divalproex Sodium (Depakote Sprinkles) 125 mg DAILYWSUP PO 01/21/21 17:00 02/26/21 17:11 Risperidone (RisperDAL) 0.5 mg DAILY PO 01/23/21 09:00 02/26/21 09:09 I have reviewed the current psychotropics carefully including drug interactions. Risk benefit ratio favors no change other than as noted in my dictated progress note. 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
[2021-02-27 06:17] VITALS: BP 176/72
[2021-02-27] MEDS: risperiDONE 0.5 MG TABLET. PO SCH ×2 (08:24→19:46)
[2021-02-27] MEDS: POTASSIUM CHLORIDE 20 MEQ TABLET.ER. PO SCH ×2 (08:24→19:46)
[2021-02-27] MEDS: SERTRALINE 100 MG TABLET. PO SCH (08:25)
[2021-02-27] MEDS: FUROSEMIDE 40 MG TABLET PO SCH (08:25)
[2021-02-27] MEDS: METOPROLOL TART IMMED RELEASE 50 MG TABLET PO SCH ×2 (08:25→19:47)
[2021-02-27] MEDS: DIVALPROEX 125 MG CAP.SPRINK PO SCH ×2 (08:25→17:31)
[2021-02-27] MEDS: POLYETHYLENE GLYCOL 3350 17 GM PACKET. PO SCH (08:25)
[2021-02-27 15:16] VITALS: BP 156/68
[2021-02-27] MEDS: MELATONIN 3 MG TABLET PO SCH (19:46)
[2021-02-27] MEDS: ATORVASTATIN CALCIUM 10 MG TABLET. PO SCH (19:46)
[2021-02-27] MEDS: MIRTAZAPINE ODT 15 MG TAB.RAPDIS. PO SCH (19:47)
--- NOTE | 2021-02-27 22:18 | PDOC ---
Exam Note: Devang Note: Please also refer to the separate dictated note~for this date of service dictated separately.~Patient seen individually. Discussed the patient with Nursing staff reviewed the chart.~Reviewed interim history and current functioning. Reviewed vital signs,~Labs/ Radiology~and current medications noted below. Continue current treatment with the changes noted in the dictated addendum note Assessment: Vital Signs/I&O: Vital Signs Date Time Temp Pulse Resp B/P (MAP) Pulse Ox O2 Delivery O2 Flow Rate FiO2 02/27/21 19:47 88 156/68 02/27/21 15:16 98.0 17 98 Room Air I & O 02/26/21 02/26/21 02/27/21 15:00 23:00 07:00 Intake Total 840 ml 360 ml Balance 840 ml 360 ml Current Medications: Meds: Current Medications Medications (Trade) Dose Ordered Sig/Marguerite Route PRN Reason Start Time Stop Time Status Last Admin Dose Admin Potassium Chloride (Klor-Con) 40 meq 1X ONCE PO 01/04/21 19:00 01/04/21 19:07 DC 01/04/21 19:16 Acetaminophen (Tylenol) 500 mg PRN Q12HR PRN PO PAIN 01/04/21 23:00 Cancel Atorvastatin Calcium (Lipitor) 10 mg QHS PO 01/05/21 21:00 02/27/21 19:46 Furosemide (Lasix) 40 mg DAILY PO 01/05/21 09:00 02/27/21 08:25 Metoprolol Tartrate (Lopressor) 50 mg BID PO 01/05/21 09:00 02/27/21 19:47 Potassium Chloride (Klor-Con) 20 meq DAILY PO 01/05/21 09:00 01/11/21 15:00 DC 01/11/21 08:57 Polyethylene Glycol (miraLAX) 17 gm DAILY PO 01/05/21 09:00 02/27/21 08:25 Lorazepam (Ativan) 1 mg PRN Q4HRS PRN PO ANXIETY / AGITATION 01/04/21 23:00 01/09/21 10:42 DC 01/07/21 23:07 Lorazepam (Ativan Intensol) 1 mg PRN Q6HRS PRN PO ANXIETY / AGITATION 01/04/21 23:00 01/09/21 17:03 DC Risperidone (RisperDAL) 0.25 mg DAILY PO 01/05/21 09:00 01/22/21 17:34 DC 01/22/21 08:35 Risperidone (RisperDAL) 0.5 mg QHS PO 01/05/21 21:00 01/08/21 17:27 DC 01/07/21 20:28 Melatonin (Melatonin) 6 mg HS PO 01/05/21 21:00 01/08/21 17:27 DC 01/07/21 20:28 Acetaminophen (Tylenol) 650 mg PRN Q6HRS PRN PO MILD PAIN / TEMP > 100.3'F 01/04/21 22:45 01/29/21 14:47 Multi-Ingredient Ointment (Analgesic [place]) 1 abby PRN QID PRN TP MUSCLE PAIN 01/04/21 22:45 Al Hydroxide/Mg Hydroxide (Mylanta Plus Xs) 15 ml PRN AFTMEALHC PRN PO DYSPEPSIA 01/04/21 22:45 Magnesium Hydroxide (Milk Of Magnesia) 2,400 mg PRN QHS PRN PO CONSTIPATION 01/04/21 22:45 Potassium Chloride (Klor-Con) 40 meq 1X ONCE PO 01/05/21 15:45 01/05/21 15:49 DC 01/05/21 17:29 Potassium Chloride (Klor-Con) 20 meq BID PO 01/05/21 21:00 02/27/21 19:46 Sertraline HCl (Zoloft) 25 mg DAILY PO 01/07/21 09:00 01/09/21 18:00 DC 01/09/21 08:24 Sertraline HCl (Zoloft) 50 mg DAILY PO 01/10/21 09:00 01/14/21 11:10 DC 01/14/21 08:11 Melatonin (Melatonin) 3 mg HS PO 01/08/21 21:00 02/27/21 19:46 Trazodone HCl (Desyrel) 50 mg PRN QHS PRN PO INSOMNIA MRX1 01/08/21 17:30 02/18/21 01:00 Risperidone (RisperDAL) 1 mg QHS PO 01/08/21 21:00 01/08/21 19:47 DC Olanzapine (ZyPREXA ZYDIS) 2.5 mg PRN Q2HRS PRN PO PSYCHOSIS 01/08/21 19:45 02/26/21 13:48 Risperidone (RisperDAL) 0.5 mg HS PO 01/08/21 21:00 01/08/21 19:58 DC Risperidone (RisperDAL) 0.25 mg HS PO 01/08/21 20:00 01/08/21 20:01 DC Risperidone (RisperDAL) 0.25 mg HS PO 01/08/21 21:00 01/14/21 11:11 DC 01/13/21 20:11 Lorazepam (Ativan Intensol) 0.25 mg PRN Q6HRS PRN PO ANXIETY / AGITATION 01/09/21 17:15 01/09/21 17:46 DC Lorazepam (Ativan Intensol) 0.25 mg PRN TID PRN PO ANXIETY / AGITATION 01/09/21 17:45 02/26/21 13:48 Trazodone HCl (Desyrel) 50 mg 1445 ONCE PO 01/11/21 14:45 01/11/21 14:54 DC Mirtazapine (Remeron) 7.5 mg QHS PO 01/11/21 21:00 01/18/21 19:49 DC 01/17/21 19:38 Sertraline HCl (Zoloft) 75 mg DAILY PO 01/15/21 09:00 01/19/21 17:19 DC 01/19/21 08:14 Risperidone (RisperDAL) 0.5 mg QHS PO 01/14/21 21:00 02/27/21 19:46 Mirtazapine (Remeron Anum-Tab) 15 mg QHS PO 01/18/21 21:00 02/27/21 19:47 Sertraline HCl (Zoloft) 100 mg DAILY PO 01/20/21 09:00 02/27/21 08:25 Divalproex Sodium (Depakote Sprinkles) 125 mg DAILY PO 01/22/21 09:00 02/27/21 08:25 Divalproex Sodium (Depakote Sprinkles) 125 mg DAILYWSUP PO 01/21/21 17:00 02/27/21 17:31 Risperidone (RisperDAL) 0.5 mg DAILY PO 01/23/21 09:00 02/27/21 08:24 I have reviewed the current psychotropics carefully including drug interactions. Risk benefit ratio favors no change other than as noted in my dictated progress note. 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
[2021-02-28 06:02] VITALS: BP 158/83
--- NOTE | 2021-02-28 06:23 | PDOC ---
Exam Note: Devang Note: This note is a late entry for 02/26/2021overs elements not covered in my initial note. Subjective: The patient was seen individually in the evening of 02/26/2021 with Reyna MARIANO, discussed and reviewed the chart. The patient slept 5-3/4 hours previous night. She has been aggressive at times with another demented patient because she feels the patient is not telling her where her parents are when she questioned her. She is redirectable, very pleasant, interactive, confused as I met with her. She is compliant with medications, generally calmer, spending much time in her room. Review of Systems: No CV, , pulmonary, eye system symptoms on review. Mental Status Exam: The patient is oriented to herself. Insight and judgment, recent and remote memory, attention and concentration is poor consistent with her diagnoses. No suicidal or homicidal ideation. Laboratory Data: Reviewed. Impression: Major neurocognitive disorder Alzheimer vascular with delusion, depression, and behavioral disturbance. Anxiety disorder unspecified. Impulse control disorder unspecified. Plan: Continue current psychotropics from initial note. Assessment: Vital Signs/I&O: Vital Signs Date Time Temp Pulse Resp B/P (MAP) Pulse Ox O2 Delivery O2 Flow Rate FiO2 02/28/21 06:02 97.2 62 18 158/83 (108) 96 02/27/21 15:16 Room Air I & O 02/27/21 02/27/21 02/28/21 15:00 23:00 07:00 Intake Total 840 ml 420 ml Balance 840 ml 420 ml Current Medications: Meds: Current Medications Medications (Trade) Dose Ordered Sig/Marguerite Route PRN Reason Start Time Stop Time Status Last Admin Dose Admin Potassium Chloride (Klor-Con) 40 meq 1X ONCE PO 01/04/21 19:00 01/04/21 19:07 DC 01/04/21 19:16 Acetaminophen (Tylenol) 500 mg PRN Q12HR PRN PO PAIN 01/04/21 23:00 Cancel Atorvastatin Calcium (Lipitor) 10 mg QHS PO 01/05/21 21:00 02/27/21 19:46 Furosemide (Lasix) 40 mg DAILY PO 01/05/21 09:00 02/27/21 08:25 Metoprolol Tartrate (Lopressor) 50 mg BID PO 01/05/21 09:00 02/27/21 19:47 Potassium Chloride (Klor-Con) 20 meq DAILY PO 01/05/21 09:00 01/11/21 15:00 DC 01/11/21 08:57 Polyethylene Glycol (miraLAX) 17 gm DAILY PO 01/05/21 09:00 02/27/21 08:25 Lorazepam (Ativan) 1 mg PRN Q4HRS PRN PO ANXIETY / AGITATION 01/04/21 23:00 01/09/21 10:42 DC 01/07/21 23:07 Lorazepam (Ativan Intensol) 1 mg PRN Q6HRS PRN PO ANXIETY / AGITATION 01/04/21 23:00 01/09/21 17:03 DC Risperidone (RisperDAL) 0.25 mg DAILY PO 01/05/21 09:00 01/22/21 17:34 DC 01/22/21 08:35 Risperidone (RisperDAL) 0.5 mg QHS PO 01/05/21 21:00 01/08/21 17:27 DC 01/07/21 20:28 Melatonin (Melatonin) 6 mg HS PO 01/05/21 21:00 01/08/21 17:27 DC 01/07/21 20:28 Acetaminophen (Tylenol) 650 mg PRN Q6HRS PRN PO MILD PAIN / TEMP > 100.3'F 01/04/21 22:45 01/29/21 14:47 Multi-Ingredient Ointment (Analgesic [place]) 1 abby PRN QID PRN TP MUSCLE PAIN 01/04/21 22:45 Al Hydroxide/Mg Hydroxide (Mylanta Plus Xs) 15 ml PRN AFTMEALHC PRN PO DYSPEPSIA 01/04/21 22:45 Magnesium Hydroxide (Milk Of Magnesia) 2,400 mg PRN QHS PRN PO CONSTIPATION 01/04/21 22:45 Potassium Chloride (Klor-Con) 40 meq 1X ONCE PO 01/05/21 15:45 01/05/21 15:49 DC 01/05/21 17:29 Potassium Chloride (Klor-Con) 20 meq BID PO 01/05/21 21:00 02/27/21 19:46 Sertraline HCl (Zoloft) 25 mg DAILY PO 01/07/21 09:00 01/09/21 18:00 DC 01/09/21 08:24 Sertraline HCl (Zoloft) 50 mg DAILY PO 01/10/21 09:00 01/14/21 11:10 DC 01/14/21 08:11 Melatonin (Melatonin) 3 mg HS PO 01/08/21 21:00 02/27/21 19:46 Trazodone HCl (Desyrel) 50 mg PRN QHS PRN PO INSOMNIA MRX1 01/08/21 17:30 02/18/21 01:00 Risperidone (RisperDAL) 1 mg QHS PO 01/08/21 21:00 01/08/21 19:47 DC Olanzapine (ZyPREXA ZYDIS) 2.5 mg PRN Q2HRS PRN PO PSYCHOSIS 01/08/21 19:45 02/26/21 13:48 Risperidone (RisperDAL) 0.5 mg HS PO 01/08/21 21:00 01/08/21 19:58 DC Risperidone (RisperDAL) 0.25 mg HS PO 01/08/21 20:00 01/08/21 20:01 DC Risperidone (RisperDAL) 0.25 mg HS PO 01/08/21 21:00 01/14/21 11:11 DC 01/13/21 20:11 Lorazepam (Ativan Intensol) 0.25 mg PRN Q6HRS PRN PO ANXIETY / AGITATION 01/09/21 17:15 01/09/21 17:46 DC Lorazepam (Ativan Intensol) 0.25 mg PRN TID PRN PO ANXIETY / AGITATION 01/09/21 17:45 02/26/21 13:48 Trazodone HCl (Desyrel) 50 mg 1445 ONCE PO 01/11/21 14:45 01/11/21 14:54 DC Mirtazapine (Remeron) 7.5 mg QHS PO 01/11/21 21:00 01/18/21 19:49 DC 01/17/21 19:38 Sertraline HCl (Zoloft) 75 mg DAILY PO 01/15/21 09:00 01/19/21 17:19 DC 01/19/21 08:14 Risperidone (RisperDAL) 0.5 mg QHS PO 01/14/21 21:00 02/27/21 19:46 Mirtazapine (Remeron Anum-Tab) 15 mg QHS PO 01/18/21 21:00 02/27/21 19:47 Sertraline HCl (Zoloft) 100 mg DAILY PO 01/20/21 09:00 02/27/21 08:25 Divalproex Sodium (Depakote Sprinkles) 125 mg DAILY PO 01/22/21 09:00 02/27/21 08:25 Divalproex Sodium (Depakote Sprinkles) 125 mg DAILYWSUP PO 01/21/21 17:00 02/27/21 17:31 Risperidone (RisperDAL) 0.5 mg DAILY PO 01/23/21 09:00 02/27/21 08:24 I have reviewed the current psychotropics carefully including drug interactions. Risk benefit ratio favors no change other than as noted in my dictated progress note. 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
[2021-02-28] MEDS: risperiDONE 0.5 MG TABLET. PO SCH ×2 (09:00→19:50)
[2021-02-28] MEDS: METOPROLOL TART IMMED RELEASE 50 MG TABLET PO SCH ×2 (09:00→19:51)
[2021-02-28] MEDS: POLYETHYLENE GLYCOL 3350 17 GM PACKET. PO SCH (09:00)
[2021-02-28] MEDS: POTASSIUM CHLORIDE 20 MEQ TABLET.ER. PO SCH ×2 (09:00→19:50)
[2021-02-28] MEDS: SERTRALINE 100 MG TABLET. PO SCH (09:00)
[2021-02-28] MEDS: DIVALPROEX 125 MG CAP.SPRINK PO SCH ×2 (09:00→17:31)
[2021-02-28] MEDS: FUROSEMIDE 40 MG TABLET PO SCH (09:00)
[2021-02-28 12:50] VITALS: BP 121/63
[2021-02-28 16:03] VITALS: BP 101/62
[2021-02-28 19:48] VITALS: BP 110/65
[2021-02-28] MEDS: MIRTAZAPINE ODT 15 MG TAB.RAPDIS. PO SCH (19:50)
[2021-02-28] MEDS: ATORVASTATIN CALCIUM 10 MG TABLET. PO SCH (19:50)
[2021-02-28] MEDS: MELATONIN 3 MG TABLET PO SCH (19:51)
[2021-02-28] MEDS: traZODone 50 MG TABLET. PO PRN (23:58)
[2021-03-01 05:40] VITALS: BP 146/68
[2021-03-01] MEDS: DIVALPROEX 125 MG CAP.SPRINK PO SCH ×2 (08:22→17:23)
[2021-03-01] MEDS: METOPROLOL TART IMMED RELEASE 50 MG TABLET PO SCH ×2 (08:22→20:09)
[2021-03-01] MEDS: risperiDONE 0.5 MG TABLET. PO SCH ×2 (08:22→20:09)
[2021-03-01] MEDS: POTASSIUM CHLORIDE 20 MEQ TABLET.ER. PO SCH ×2 (08:22→20:09)
[2021-03-01] MEDS: SERTRALINE 100 MG TABLET. PO SCH (08:23)
[2021-03-01] MEDS: FUROSEMIDE 40 MG TABLET PO SCH (08:23)
[2021-03-01] MEDS: POLYETHYLENE GLYCOL 3350 17 GM PACKET. PO SCH (08:23)
--- NOTE | 2021-03-01 09:40 | PDOC ---
Exam Note: Devang Note: Late entry for 02/28/2021. Please also refer to the separate dictated note~for this date of service dictated separately.~Patient seen individually. Discussed the patient with Nursing staff reviewed the chart.~Reviewed interim history and current functioning. Reviewed vital signs,~Labs/ Radiology~and current medic ations noted below. Continue current treatment with the changes noted in the dictated addendum note Assessment: Vital Signs/I&O: Vital Signs Date Time Temp Pulse Resp B/P (MAP) Pulse Ox O2 Delivery O2 Flow Rate FiO2 03/01/21 08:22 60 146/68 03/01/21 05:40 97.6 16 95 02/27/21 15:16 Room Air I & O 02/28/21 02/28/21 03/01/21 15:00 23:00 07:00 Intake Total 600 ml 360 ml Balance 600 ml 360 ml Current Medications: Meds: Current Medications Medications (Trade) Dose Ordered Sig/Marguerite Route PRN Reason Start Time Stop Time Status Last Admin Dose Admin Potassium Chloride (Klor-Con) 40 meq 1X ONCE PO 01/04/21 19:00 01/04/21 19:07 DC 01/04/21 19:16 Acetaminophen (Tylenol) 500 mg PRN Q12HR PRN PO PAIN 01/04/21 23:00 Cancel Atorvastatin Calcium (Lipitor) 10 mg QHS PO 01/05/21 21:00 02/28/21 19:50 Furosemide (Lasix) 40 mg DAILY PO 01/05/21 09:00 03/01/21 08:23 Metoprolol Tartrate (Lopressor) 50 mg BID PO 01/05/21 09:00 03/01/21 08:22 Potassium Chloride (Klor-Con) 20 meq DAILY PO 01/05/21 09:00 01/11/21 15:00 DC 01/11/21 08:57 Polyethylene Glycol (miraLAX) 17 gm DAILY PO 01/05/21 09:00 03/01/21 08:23 Lorazepam (Ativan) 1 mg PRN Q4HRS PRN PO ANXIETY / AGITATION 01/04/21 23:00 01/09/21 10:42 DC 01/07/21 23:07 Lorazepam (Ativan Intensol) 1 mg PRN Q6HRS PRN PO ANXIETY / AGITATION 01/04/21 23:00 01/09/21 17:03 DC Risperidone (RisperDAL) 0.25 mg DAILY PO 01/05/21 09:00 01/22/21 17:34 DC 01/22/21 08:35 Risperidone (RisperDAL) 0.5 mg QHS PO 01/05/21 21:00 01/08/21 17:27 DC 01/07/21 20:28 Melatonin (Melatonin) 6 mg HS PO 01/05/21 21:00 01/08/21 17:27 DC 01/07/21 20:28 Acetaminophen (Tylenol) 650 mg PRN Q6HRS PRN PO MILD PAIN / TEMP > 100.3'F 01/04/21 22:45 01/29/21 14:47 Multi-Ingredient Ointment (Analgesic [place]) 1 abby PRN QID PRN TP MUSCLE PAIN 01/04/21 22:45 Al Hydroxide/Mg Hydroxide (Mylanta Plus Xs) 15 ml PRN AFTMEALHC PRN PO DYSPEPSIA 01/04/21 22:45 Magnesium Hydroxide (Milk Of Magnesia) 2,400 mg PRN QHS PRN PO CONSTIPATION 01/04/21 22:45 Potassium Chloride (Klor-Con) 40 meq 1X ONCE PO 01/05/21 15:45 01/05/21 15:49 DC 01/05/21 17:29 Potassium Chloride (Klor-Con) 20 meq BID PO 01/05/21 21:00 03/01/21 08:22 Sertraline HCl (Zoloft) 25 mg DAILY PO 01/07/21 09:00 01/09/21 18:00 DC 01/09/21 08:24 Sertraline HCl (Zoloft) 50 mg DAILY PO 01/10/21 09:00 01/14/21 11:10 DC 01/14/21 08:11 Melatonin (Melatonin) 3 mg HS PO 01/08/21 21:00 02/28/21 19:51 Trazodone HCl (Desyrel) 50 mg PRN QHS PRN PO INSOMNIA MRX1 01/08/21 17:30 02/28/21 23:58 Risperidone (RisperDAL) 1 mg QHS PO 01/08/21 21:00 01/08/21 19:47 DC Olanzapine (ZyPREXA ZYDIS) 2.5 mg PRN Q2HRS PRN PO PSYCHOSIS 01/08/21 19:45 02/28/21 23:58 Risperidone (RisperDAL) 0.5 mg HS PO 01/08/21 21:00 01/08/21 19:58 DC Risperidone (RisperDAL) 0.25 mg HS PO 01/08/21 20:00 01/08/21 20:01 DC Risperidone (RisperDAL) 0.25 mg HS PO 01/08/21 21:00 01/14/21 11:11 DC 01/13/21 20:11 Lorazepam (Ativan Intensol) 0.25 mg PRN Q6HRS PRN PO ANXIETY / AGITATION 01/09/21 17:15 01/09/21 17:46 DC Lorazepam (Ativan Intensol) 0.25 mg PRN TID PRN PO ANXIETY / AGITATION 01/09/21 17:45 02/26/21 13:48 Trazodone HCl (Desyrel) 50 mg 1445 ONCE PO 01/11/21 14:45 01/11/21 14:54 DC Mirtazapine (Remeron) 7.5 mg QHS PO 01/11/21 21:00 01/18/21 19:49 DC 01/17/21 19:38 Sertraline HCl (Zoloft) 75 mg DAILY PO 01/15/21 09:00 01/19/21 17:19 DC 01/19/21 08:14 Risperidone (RisperDAL) 0.5 mg QHS PO 01/14/21 21:00 02/28/21 19:50 Mirtazapine (Remeron Anum-Tab) 15 mg QHS PO 01/18/21 21:00 02/28/21 19:50 Sertraline HCl (Zoloft) 100 mg DAILY PO 01/20/21 09:00 03/01/21 08:23 Divalproex Sodium (Depakote Sprinkles) 125 mg DAILY PO 01/22/21 09:00 03/01/21 08:22 Divalproex Sodium (Depakote Sprinkles) 125 mg DAILYWSUP PO 01/21/21 17:00 02/28/21 17:31 Risperidone (RisperDAL) 0.5 mg DAILY PO 01/23/21 09:00 03/01/21 08:22 I have reviewed the current psychotropics carefully including drug interactions. Risk benefit ratio favors no change other than as noted in my dictated progress note. Diagnosis: Problems: (1) Dementia in Alzheimer's disease with depression (2) Dementia in Alzheimer's disease with delusions (3) Dementia of the Alzheimer's type with early onset with behavioral disturbance (4) Major neurocognitive disorder (5) Impulse control disorder, unspecified (6) Anxiety disorder, unspecified (7) Dementia, vascular, with depression (8) Dementia, vascular, with delusions OFE MONTENEGRO MD Mar 01, 2021 09:40
[2021-03-01 15:43] VITALS: BP 160/75
[2021-03-01] MEDS: MELATONIN 3 MG TABLET PO SCH (20:09)
[2021-03-01] MEDS: ATORVASTATIN CALCIUM 10 MG TABLET. PO SCH (20:09)
[2021-03-01] MEDS: traZODone 50 MG TABLET. PO PRN (20:09)
[2021-03-01] MEDS: MIRTAZAPINE ODT 15 MG TAB.RAPDIS. PO SCH (20:09)
--- NOTE | 2021-03-01 22:04 | PDOC ---
Exam Note: Devang Note: Please also refer to the separate dictated note~for this date of service dictated separately.~Patient seen individually. Discussed the patient with Nursing staff reviewed the chart.~Reviewed interim history and current functioning. Reviewed vital signs,~Labs/ Radiology~and current medications noted below. Continue current treatment with the changes noted in the dictated addendum note Assessment: Vital Signs/I&O: Vital Signs Date Time Temp Pulse Resp B/P (MAP) Pulse Ox O2 Delivery O2 Flow Rate FiO2 03/01/21 20:09 72 160/75 03/01/21 15:43 97.5 18 100 Room Air I & O 02/28/21 02/28/21 03/01/21 15:00 23:00 07:00 Intake Total 600 ml 360 ml Balance 600 ml 360 ml Current Medications: Meds: Current Medications Medications (Trade) Dose Ordered Sig/Marguerite Route PRN Reason Start Time Stop Time Status Last Admin Dose Admin Potassium Chloride (Klor-Con) 40 meq 1X ONCE PO 01/04/21 19:00 01/04/21 19:07 DC 01/04/21 19:16 Acetaminophen (Tylenol) 500 mg PRN Q12HR PRN PO PAIN 01/04/21 23:00 Cancel Atorvastatin Calcium (Lipitor) 10 mg QHS PO 01/05/21 21:00 03/01/21 20:09 Furosemide (Lasix) 40 mg DAILY PO 01/05/21 09:00 03/01/21 08:23 Metoprolol Tartrate (Lopressor) 50 mg BID PO 01/05/21 09:00 03/01/21 20:09 Potassium Chloride (Klor-Con) 20 meq DAILY PO 01/05/21 09:00 01/11/21 15:00 DC 01/11/21 08:57 Polyethylene Glycol (miraLAX) 17 gm DAILY PO 01/05/21 09:00 03/01/21 08:23 Lorazepam (Ativan) 1 mg PRN Q4HRS PRN PO ANXIETY / AGITATION 01/04/21 23:00 01/09/21 10:42 DC 01/07/21 23:07 Lorazepam (Ativan Intensol) 1 mg PRN Q6HRS PRN PO ANXIETY / AGITATION 01/04/21 23:00 01/09/21 17:03 DC Risperidone (RisperDAL) 0.25 mg DAILY PO 01/05/21 09:00 01/22/21 17:34 DC 01/22/21 08:35 Risperidone (RisperDAL) 0.5 mg QHS PO 01/05/21 21:00 01/08/21 17:27 DC 01/07/21 20:28 Melatonin (Melatonin) 6 mg HS PO 01/05/21 21:00 01/08/21 17:27 DC 01/07/21 20:28 Acetaminophen (Tylenol) 650 mg PRN Q6HRS PRN PO MILD PAIN / TEMP > 100.3'F 01/04/21 22:45 01/29/21 14:47 Multi-Ingredient Ointment (Analgesic [place]) 1 abby PRN QID PRN TP MUSCLE PAIN 01/04/21 22:45 Al Hydroxide/Mg Hydroxide (Mylanta Plus Xs) 15 ml PRN AFTMEALHC PRN PO DYSPEPSIA 01/04/21 22:45 Magnesium Hydroxide (Milk Of Magnesia) 2,400 mg PRN QHS PRN PO CONSTIPATION 01/04/21 22:45 Potassium Chloride (Klor-Con) 40 meq 1X ONCE PO 01/05/21 15:45 01/05/21 15:49 DC 01/05/21 17:29 Potassium Chloride (Klor-Con) 20 meq BID PO 01/05/21 21:00 03/01/21 20:09 Sertraline HCl (Zoloft) 25 mg DAILY PO 01/07/21 09:00 01/09/21 18:00 DC 01/09/21 08:24 Sertraline HCl (Zoloft) 50 mg DAILY PO 01/10/21 09:00 01/14/21 11:10 DC 01/14/21 08:11 Melatonin (Melatonin) 3 mg HS PO 01/08/21 21:00 03/01/21 20:09 Trazodone HCl (Desyrel) 50 mg PRN QHS PRN PO INSOMNIA MRX1 01/08/21 17:30 03/01/21 20:09 Risperidone (RisperDAL) 1 mg QHS PO 01/08/21 21:00 01/08/21 19:47 DC Olanzapine (ZyPREXA ZYDIS) 2.5 mg PRN Q2HRS PRN PO PSYCHOSIS 01/08/21 19:45 02/28/21 23:58 Risperidone (RisperDAL) 0.5 mg HS PO 01/08/21 21:00 01/08/21 19:58 DC Risperidone (RisperDAL) 0.25 mg HS PO 01/08/21 20:00 01/08/21 20:01 DC Risperidone (RisperDAL) 0.25 mg HS PO 01/08/21 21:00 01/14/21 11:11 DC 01/13/21 20:11 Lorazepam (Ativan Intensol) 0.25 mg PRN Q6HRS PRN PO ANXIETY / AGITATION 01/09/21 17:15 01/09/21 17:46 DC Lorazepam (Ativan Intensol) 0.25 mg PRN TID PRN PO ANXIETY / AGITATION 01/09/21 17:45 02/26/21 13:48 Trazodone HCl (Desyrel) 50 mg 1445 ONCE PO 01/11/21 14:45 01/11/21 14:54 DC Mirtazapine (Remeron) 7.5 mg QHS PO 01/11/21 21:00 01/18/21 19:49 DC 01/17/21 19:38 Sertraline HCl (Zoloft) 75 mg DAILY PO 01/15/21 09:00 01/19/21 17:19 DC 01/19/21 08:14 Risperidone (RisperDAL) 0.5 mg QHS PO 01/14/21 21:00 03/01/21 20:09 Mirtazapine (Remeron Anum-Tab) 15 mg QHS PO 01/18/21 21:00 03/01/21 20:09 Sertraline HCl (Zoloft) 100 mg DAILY PO 01/20/21 09:00 03/01/21 08:23 Divalproex Sodium (Depakote Sprinkles) 125 mg DAILY PO 01/22/21 09:00 03/01/21 08:22 Divalproex Sodium (Depakote Sprinkles) 125 mg DAILYWSUP PO 01/21/21 17:00 03/01/21 17:23 Risperidone (RisperDAL) 0.5 mg DAILY PO 01/23/21 09:00 03/01/21 08:22 I have reviewed the current psychotropics carefully including drug interactions. Risk benefit ratio favors no change other than as noted in my dictated progress note. 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
[2021-03-02 05:36] VITALS: BP 158/65
[2021-03-02] MEDS ORDERED: NITROGLYCERIN SUBLINGUAL 0.4 MG BOTTLE OF 25. SL PRN (06:00)
[2021-03-02 06:18] LABS: BASO % 1 % (0-3); EOS # 0.5 x10^3/uL (0.0-0.7); EOS % 11 % (0-3); HEMATOCRIT 33.4 % (36.0-47.0); HEMOGLOBIN 11.1 g/dL (12.0-15.5); LYMPH % 24 % (24-48); MEAN CORPUSCULAR HEMOGLOBIN 33 pg (25-35); MEAN CORPUSCULAR HGB CONC 33 g/dL (31-37); MEAN CORPUSCULAR VOLUME 99 fL (79-100); MONO # 0.6 x10^3/uL (0.0-1.1); MONO % 15 % (0-9); NEUT # 2.1 x10^3uL (1.8-7.7); NEUT % 50 % (31-73); PLATELET COUNT 182 x10^3/uL (140-400); RED BLOOD COUNT 3.38 x10^6/uL (3.50-5.40); RED CELL DISTRIBUTION WIDTH 14.2 % (11.5-14.5); WHITE BLOOD COUNT 4.2 x10^3/uL (4.0-11.0)
[2021-03-02 06:24] LABS: CALCIUM 8.8 mg/dL (8.5-10.1); CREATININE 0.9 mg/dL (0.6-1.0); GFR 59.4; POTASSIUM 4.1 mmol/L (3.5-5.1)
[2021-03-02 06:36] LABS: ALBUMIN 3.5 g/dL (3.4-5.0); TOTAL BILIRUBIN 0.2 mg/dL (0.2-1.0); TOTAL PROTEIN 7.1 g/dL (6.4-8.2)
--- NOTE | 2021-03-02 06:36 | EKG ---
[address] [address] Test Date: 2021-03-02 Test Time: 06:13:20 Pat Name: GILLES LAIRD Department: Room: [address] [place] [address] Gender: F Interactive Account Manager: : [id number] Requested By: OSWALDO AHUJA Order Number: [id number] Reading MD: Measurements Intervals [place] Rate: 65 P: MI: QRS: 154 QRSD: 84 T: 145 QT: 402 QTc: 419 Interpretive Statements IRREGULAR RHYTHM, NO P-WAVE FOUND ABNORMAL RIGHT AXIS DEVIATION QRS(T) CONTOUR ABNORMALITY CONSISTENT WITH HIGH LATERAL INFARCT AGE UNDETERMINED ABNORMAL ECG RI6.01 No previous ECG available for comparison
--- NOTE | 2021-03-02 06:53 | RAD ---
AP chest x-ray HISTORY: Chest pain. Comparisons: None available. FINDINGS: Heart size normal. There is marked tortuosity of the ascending aorta, aortic arch and desce nding aorta with peripheral calcification this could be due to marked vascular tortuosity although an eurysm contributing to this is also a possibility. No pneumothorax, pulmonary opacities or pleural ef fusions. Upper thoracic scoliosis. IMPRESSION: Marked tortuosity of the thoracic aorta and thin calcification along its wall. This could be due to prominent tortuosity of the aorta alone, although aneurysmal enlargement of the aorta cont ributing to this is also a possibility. This could be further assessed with CT imaging. Electronically signed by: Olegario Odonnell MD (03/02/2021 6:50 AM) [facility]
[2021-03-02] MEDS: risperiDONE 0.5 MG TABLET. PO SCH ×2 (08:02→20:27)
[2021-03-02] MEDS: FUROSEMIDE 40 MG TABLET PO SCH (08:02)
[2021-03-02] MEDS: METOPROLOL TART IMMED RELEASE 50 MG TABLET PO SCH ×2 (08:02→20:27)
[2021-03-02] MEDS: DIVALPROEX 125 MG CAP.SPRINK PO SCH ×2 (08:02→17:26)
[2021-03-02] MEDS: POTASSIUM CHLORIDE 20 MEQ TABLET.ER. PO SCH ×2 (08:03→20:27)
[2021-03-02] MEDS: SERTRALINE 100 MG TABLET. PO SCH (08:03)
[2021-03-02] MEDS: POLYETHYLENE GLYCOL 3350 17 GM PACKET. PO SCH (08:04)
[2021-03-02 12:37] LABS: BACTERIA,URINE 0 /HPF (0-FEW); BILIRUBIN,URINE NEG (NEG); CLARITY,URINE CLEAR; COLOR,URINE YELLOW; GLUCOSE,URINE NEG (NEG); NITRITE,URINE NEG (NEG); RBC,URINE 0 /HPF (0-2); SQUAMOUS EPITHELIAL CELL,UR MOD /LPF; UROBILINOGEN,URINE 0.2 mg/dL (0.2 mg/dL); WBC,URINE OCC /HPF (0-4)
[2021-03-02 15:24] VITALS: BP 113/62
[2021-03-02] MEDS: ATORVASTATIN CALCIUM 10 MG TABLET. PO SCH (20:27)
[2021-03-02] MEDS: MIRTAZAPINE ODT 15 MG TAB.RAPDIS. PO SCH (20:27)
[2021-03-02] MEDS: traZODone 50 MG TABLET. PO PRN (20:27)
[2021-03-02] MEDS: MELATONIN 3 MG TABLET PO SCH (20:27)
--- NOTE | 2021-03-02 22:07 | PDOC ---
Exam Note: Devang Note: This note is a late entry for 02/27/2021 covers elements not covered in my initial note. Subjective: The patient was reviewed on telehealth rounds in the evening of 02/27/2021 with Reyna MARIANO due to COVID-19 pandemic, discussed and reviewed the chart. The patient slept 7-1/2 hours previous night. She remains confused, not agitated or aggressive. Review of Systems: No CV, , pulmonary, eye, ENT system symptoms on review. Reliability poor. Mental Status Exam: The patient is oriented to herself. Insight and judgment, recent and remote memory, attention and concentration is poor consistent with her diagnoses. Laboratory Data: Reviewed. Impression: Major neurocognitive disorder Alzheimer vascular with delusion, depression, and behavioral disturbance. Anxiety disorder unspecified. Impulse control disorder unspecified. Plan: Continue current psychotropics from initial note. Assessment: Vital Signs/I&O: Vital Signs Date Time Temp Pulse Resp B/P (MAP) Pulse Ox O2 Delivery O2 Flow Rate FiO2 03/02/21 20:27 68 137/65 03/02/21 15:24 97.9 16 94 Room Air I & O 03/01/21 03/01/21 03/02/21 15:00 23:00 07:00 Intake Total 600 ml 360 ml Balance 600 ml 360 ml Labs: Laboratory Tests Test 03/02/21 06:09 03/02/21 11:08 White Blood Count 4.2 x10^3/uL (4.0-11.0) Red Blood Count 3.38 x10^6/uL (3.50-5.40) L Hemoglobin 11.1 g/dL (12.0-15.5) L Hematocrit 33.4 % (36.0-47.0) L Mean Corpuscular Volume 99 fL (79-100) Mean Corpuscular Hemoglobin 33 pg (25-35) Mean Corpuscular Hemoglobin Concent 33 g/dL (31-37) Red Cell Distribution Width 14.2 % (11.5-14.5) Platelet Count 182 x10^3/uL (140-400) Neutrophils (%) (Auto) 50 % (31-73) Lymphocytes (%) (Auto) 24 % (24-48) Monocytes (%) (Auto) 15 % (0-9) H Eosinophils (%) (Auto) 11 % (0-3) H Basophils (%) (Auto) 1 % (0-3) Neutrophils # (Auto) 2.1 x10^3uL (1.8-7.7) Lymphocytes # (Auto) 1.0 x10^3/uL (1.0-4.8) Monocytes # (Auto) 0.6 x10^3/uL (0.0-1.1) Eosinophils # (Auto) 0.5 x10^3/uL (0.0-0.7) Basophils # (Auto) 0.0 x10^3/uL (0.0-0.2) Sodium Level 142 mmol/L (136-145) Potassium Level 4.1 mmol/L (3.5-5.1) Chloride Level 104 mmol/L (98-107) Carbon Dioxide Level 31 mmol/L (21-32) Anion Gap 7 (6-14) Blood Urea Nitrogen 40 mg/dL (7-20) H Creatinine 0.9 mg/dL (0.6-1.0) Estimated GFR (Cockcroft-Gault) 59.4 BUN/Creatinine Ratio 44 (6-20) H Glucose Level 91 mg/dL (70-99) Calcium Level 8.8 mg/dL (8.5-10.1) Total Bilirubin 0.2 mg/dL (0.2-1.0) Aspartate Amino Transferase (AST) 18 U/L (15-37) Alanine Aminotransferase (ALT) 24 U/L (14-59) Alkaline Phosphatase 63 U/L (46-116) Troponin I Quantitative < 0.017 ng/mL (0-0.055) UX-Ima-T-Type Natriuretic Peptide 700 pg/mL (0-449) H Total Protein 7.1 g/dL (6.4-8.2) Albumin 3.5 g/dL (3.4-5.0) Albumin/Globulin Ratio 1.0 (1.0-1.7) Urine Collection Type Unknown Urine Color Yellow Urine Clarity Clear Urine pH 6.5 Urine Specific [place] 1.020 Urine Protein Neg (NEG-TRACE) Urine Glucose (UA) Neg mg/dL (NEG) Urine Ketones (Stick) Neg mg/dL (NEG) Urine Blood Neg (NEG) Urine Nitrite Neg (NEG) Urine Bilirubin Neg (NEG) Urine Urobilinogen Dipstick 0.2 mg/dL (0.2 mg/dL) Urine Leukocyte Esterase Neg (NEG) Urine RBC 0 /HPF (0-2) Urine WBC Occ /HPF (0-4) Urine Squamous Epithelial Cells Mod /LPF Urine Bacteria 0 /HPF (0-FEW) Urine Mucus Slight /LPF Current Medications: Meds: Laboratory Tests Test 03/02/21 06:09 03/02/21 11:08 White Blood Count 4.2 x10^3/uL Red Blood Count 3.38 x10^6/uL Hemoglobin 11.1 g/dL Hematocrit 33.4 % Mean Corpuscular Volume 99 fL Mean Corpuscular Hemoglobin 33 pg Mean Corpuscular Hemoglobin Concent 33 g/dL Red Cell Distribution Width 14.2 % Platelet Count 182 x10^3/uL Neutrophils (%) (Auto) 50 % Lymphocytes (%) (Auto) 24 % Monocytes (%) (Auto) 15 % Eosinophils (%) (Auto) 11 % Basophils (%) (Auto) 1 % Neutrophils # (Auto) 2.1 x10^3uL Lymphocytes # (Auto) 1.0 x10^3/uL Monocytes # (Auto) 0.6 x10^3/uL Eosinophils # (Auto) 0.5 x10^3/uL Basophils # (Auto) 0.0 x10^3/uL Sodium Level 142 mmol/L Potassium Level 4.1 mmol/L Chloride Level 104 mmol/L Carbon Dioxide Level 31 mmol/L Anion Gap 7 Blood Urea Nitrogen 40 mg/dL Creatinine 0.9 mg/dL Estimated GFR (Cockcroft-Gault) 59.4 BUN/Creatinine Ratio 44 Glucose Level 91 mg/dL Calcium Level 8.8 mg/dL Total Bilirubin 0.2 mg/dL Aspartate Amino Transf (AST/SGOT) 18 U/L Alanine Aminotransferase (ALT/SGPT) 24 U/L Alkaline Phosphatase 63 U/L Troponin I Quantitative < 0.017 ng/mL SQ-Hfh-O-Type Natriuretic Peptide 700 pg/mL Total Protein 7.1 g/dL Albumin 3.5 g/dL Albumin/Globulin Ratio 1.0 Urine Collection Type Unknown Urine Color Yellow Urine Clarity Clear Urine pH 6.5 Urine Specific [place] 1.020 Urine Protein Neg Urine Glucose (UA) Neg mg/dL Urine Ketones (Stick) Neg mg/dL Urine Blood Neg Urine Nitrite Neg Urine Bilirubin Neg Urine Urobilinogen Dipstick 0.2 mg/dL Urine Leukocyte Esterase Neg Urine RBC 0 /HPF Urine WBC Occ /HPF Urine Squamous Epithelial Cells Mod /LPF Urine Bacteria 0 /HPF Urine Mucus Slight /LPF Current Medications Medications (Trade) Dose Ordered Sig/Marguerite Route PRN Reason Start Time Stop Time Status Last Admin Dose Admin Potassium Chloride (Klor-Con) 40 meq 1X ONCE PO 01/04/21 19:00 01/04/21 19:07 DC 01/04/21 19:16 Acetaminophen (Tylenol) 500 mg PRN Q12HR PRN PO PAIN 01/04/21 23:00 Cancel Atorvastatin Calcium (Lipitor) 10 mg QHS PO 01/05/21 21:00 03/02/21 20:27 Furosemide (Lasix) 40 mg DAILY PO 01/05/21 09:00 03/02/21 08:02 Metoprolol Tartrate (Lopressor) 50 mg BID PO 01/05/21 09:00 03/02/21 20:27 Potassium Chloride (Klor-Con) 20 meq DAILY PO 01/05/21 09:00 01/11/21 15:00 DC 01/11/21 08:57 Polyethylene Glycol (miraLAX) 17 gm DAILY PO 01/05/21 09:00 03/02/21 08:04 Lorazepam (Ativan) 1 mg PRN Q4HRS PRN PO ANXIETY / AGITATION 01/04/21 23:00 01/09/21 10:42 DC 01/07/21 23:07 Lorazepam (Ativan Intensol) 1 mg PRN Q6HRS PRN PO ANXIETY / AGITATION 01/04/21 23:00 01/09/21 17:03 DC Risperidone (RisperDAL) 0.25 mg DAILY PO 01/05/21 09:00 01/22/21 17:34 DC 01/22/21 08:35 Risperidone (RisperDAL) 0.5 mg QHS PO 01/05/21 21:00 01/08/21 17:27 DC 01/07/21 20:28 Melatonin (Melatonin) 6 mg HS PO 01/05/21 21:00 01/08/21 17:27 DC 01/07/21 20:28 Acetaminophen (Tylenol) 650 mg PRN Q6HRS PRN PO MILD PAIN / TEMP > 100.3'F 01/04/21 22:45 01/29/21 14:47 Multi-Ingredient Ointment (Analgesic [place]) 1 abby PRN QID PRN TP MUSCLE PAIN 01/04/21 22:45 Al Hydroxide/Mg Hydroxide (Mylanta Plus Xs) 15 ml PRN AFTMEALHC PRN PO DYSPEPSIA 01/04/21 22:45 Magnesium Hydroxide (Milk Of Magnesia) 2,400 mg PRN QHS PRN PO CONSTIPATION 01/04/21 22:45 Potassium Chloride (Klor-Con) 40 meq 1X ONCE PO 01/05/21 15:45 01/05/21 15:49 DC 01/05/21 17:29 Potassium Chloride (Klor-Con) 20 meq BID PO 01/05/21 21:00 03/02/21 20:27 Sertraline HCl (Zoloft) 25 mg DAILY PO 01/07/21 09:00 01/09/21 18:00 DC 01/09/21 08:24 Sertraline HCl (Zoloft) 50 mg DAILY PO 01/10/21 09:00 01/14/21 11:10 DC 01/14/21 08:11 Melatonin (Melatonin) 3 mg HS PO 01/08/21 21:00 03/02/21 20:27 Trazodone HCl (Desyrel) 50 mg PRN QHS PRN PO INSOMNIA MRX1 01/08/21 17:30 03/02/21 20:27 Risperidone (RisperDAL) 1 mg QHS PO 01/08/21 21:00 01/08/21 19:47 DC Olanzapine (ZyPREXA ZYDIS) 2.5 mg PRN Q2HRS PRN PO PSYCHOSIS 01/08/21 19:45 03/02/21 05:32 Risperidone (RisperDAL) 0.5 mg HS PO 01/08/21 21:00 01/08/21 19:58 DC Risperidone (RisperDAL) 0.25 mg HS PO 01/08/21 20:00 01/08/21 20:01 DC Risperidone (RisperDAL) 0.25 mg HS PO 01/08/21 21:00 01/14/21 11:11 DC 01/13/21 20:11 Lorazepam (Ativan Intensol) 0.25 mg PRN Q6HRS PRN PO ANXIETY / AGITATION 01/09/21 17:15 01/09/21 17:46 DC Lorazepam (Ativan Intensol) 0.25 mg PRN TID PRN PO ANXIETY / AGITATION 01/09/21 17:45 02/26/21 13:48 Trazodone HCl (Desyrel) 50 mg 1445 ONCE PO 01/11/21 14:45 01/11/21 14:54 DC Mirtazapine (Remeron) 7.5 mg QHS PO 01/11/21 21:00 01/18/21 19:49 DC 01/17/21 19:38 Sertraline HCl (Zoloft) 75 mg DAILY PO 01/15/21 09:00 01/19/21 17:19 DC 01/19/21 08:14 Risperidone (RisperDAL) 0.5 mg QHS PO 01/14/21 21:00 03/02/21 20:27 Mirtazapine (Remeron Anum-Tab) 15 mg QHS PO 01/18/21 21:00 03/02/21 20:27 Sertraline HCl (Zoloft) 100 mg DAILY PO 01/20/21 09:00 03/02/21 08:03 Divalproex Sodium (Depakote Sprinkles) 125 mg DAILY PO 01/22/21 09:00 03/02/21 08:02 Divalproex Sodium (Depakote Sprinkles) 125 mg DAILYWSUP PO 01/21/21 17:00 03/02/21 17:26 Risperidone (RisperDAL) 0.5 mg DAILY PO 01/23/21 09:00 03/02/21 08:02 Nitroglycerin (Nitrostat) 0.4 mg PRN Q5MIN PRN SL CHEST PAIN 03/02/21 06:00 I have reviewed the current psychotropics carefully including drug interactions. Risk benefit ratio favors no change other than as noted in my dictated progress note. 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
--- NOTE | 2021-03-02 22:19 | PDOC ---
Exam Note: Devang Note: This note is a late entry for 02/28/2021 covers elements not covered in my initial note. Subjective: The patient was seen on video telehealth services in the evening of 02/28/2021 with Lam MARIANO due to COVID-19 pandemic, discussed and reviewed the chart. The patient slept 7-3/4 hours previous night. Reportedly the patient inadvertently received another patients Seroquel and Tegretol in the morning. She was somewhat sedated but better later in the day, somewhat preoccupied per nursing report but not aggressive. Review of Systems: No CV, , pulmonary, eye system symptoms on review. Reliability poor. Mental Status Exam: The patient is oriented to herself. Insight and judgment, recent and remote memory, attention and concentration is poor consistent with her diagnoses. Laboratory Data: Reviewed. Impression: Major neurocognitive disorder Alzheimer vascular with delusion, depression, and behavioral disturbance. Anxiety disorder unspecified. Impulse control disorder unspecified. Plan: Continue current psychotropics from initial note. Assessment: Vital Signs/I&O: Vital Signs Date Time Temp Pulse Resp B/P (MAP) Pulse Ox O2 Delivery O2 Flow Rate FiO2 03/02/21 20:27 68 137/65 03/02/21 15:24 97.9 16 94 Room Air I & O 03/01/21 03/01/21 03/02/21 15:00 23:00 07:00 Intake Total 600 ml 360 ml Balance 600 ml 360 ml Labs: Laboratory Tests Test 03/02/21 06:09 03/02/21 11:08 White Blood Count 4.2 x10^3/uL (4.0-11.0) Red Blood Count 3.38 x10^6/uL (3.50-5.40) L Hemoglobin 11.1 g/dL (12.0-15.5) L Hematocrit 33.4 % (36.0-47.0) L Mean Corpuscular Volume 99 fL (79-100) Mean Corpuscular Hemoglobin 33 pg (25-35) Mean Corpuscular Hemoglobin Concent 33 g/dL (31-37) Red Cell Distribution Width 14.2 % (11.5-14.5) Platelet Count 182 x10^3/uL (140-400) Neutrophils (%) (Auto) 50 % (31-73) Lymphocytes (%) (Auto) 24 % (24-48) Monocytes (%) (Auto) 15 % (0-9) H Eosinophils (%) (Auto) 11 % (0-3) H Basophils (%) (Auto) 1 % (0-3) Neutrophils # (Auto) 2.1 x10^3uL (1.8-7.7) Lymphocytes # (Auto) 1.0 x10^3/uL (1.0-4.8) Monocytes # (Auto) 0.6 x10^3/uL (0.0-1.1) Eosinophils # (Auto) 0.5 x10^3/uL (0.0-0.7) Basophils # (Auto) 0.0 x10^3/uL (0.0-0.2) Sodium Level 142 mmol/L (136-145) Potassium Level 4.1 mmol/L (3.5-5.1) Chloride Level 104 mmol/L (98-107) Carbon Dioxide Level 31 mmol/L (21-32) Anion Gap 7 (6-14) Blood Urea Nitrogen 40 mg/dL (7-20) H Creatinine 0.9 mg/dL (0.6-1.0) Estimated GFR (Cockcroft-Gault) 59.4 BUN/Creatinine Ratio 44 (6-20) H Glucose Level 91 mg/dL (70-99) Calcium Level 8.8 mg/dL (8.5-10.1) Total Bilirubin 0.2 mg/dL (0.2-1.0) Aspartate Amino Transferase (AST) 18 U/L (15-37) Alanine Aminotransferase (ALT) 24 U/L (14-59) Alkaline Phosphatase 63 U/L (46-116) Troponin I Quantitative < 0.017 ng/mL (0-0.055) IX-[id number]-Type Natriuretic Peptide 700 pg/mL (0-449) H Total Protein 7.1 g/dL (6.4-8.2) Albumin 3.5 g/dL (3.4-5.0) Albumin/Globulin Ratio 1.0 (1.0-1.7) Urine Collection Type Unknown Urine Color Yellow Urine Clarity Clear Urine pH 6.5 Urine Specific [place] 1.020 Urine Protein Neg (NEG-TRACE) Urine Glucose (UA) Neg mg/dL (NEG) Urine Ketones (Stick) Neg mg/dL (NEG) Urine Blood Neg (NEG) Urine Nitrite Neg (NEG) Urine Bilirubin Neg (NEG) Urine Urobilinogen Dipstick 0.2 mg/dL (0.2 mg/dL) Urine Leukocyte Esterase Neg (NEG) Urine RBC 0 /HPF (0-2) Urine WBC Occ /HPF (0-4) Urine Squamous Epithelial Cells Mod /LPF Urine Bacteria 0 /HPF (0-FEW) Urine Mucus Slight /LPF Current Medications: Meds: Laboratory Tests Test 03/02/21 06:09 03/02/21 11:08 White Blood Count 4.2 x10^3/uL Red Blood Count 3.38 x10^6/uL Hemoglobin 11.1 g/dL Hematocrit 33.4 % Mean Corpuscular Volume 99 fL Mean Corpuscular Hemoglobin 33 pg Mean Corpuscular Hemoglobin Concent 33 g/dL Red Cell Distribution Width 14.2 % Platelet Count 182 x10^3/uL Neutrophils (%) (Auto) 50 % Lymphocytes (%) (Auto) 24 % Monocytes (%) (Auto) 15 % Eosinophils (%) (Auto) 11 % Basophils (%) (Auto) 1 % Neutrophils # (Auto) 2.1 x10^3uL Lymphocytes # (Auto) 1.0 x10^3/uL Monocytes # (Auto) 0.6 x10^3/uL Eosinophils # (Auto) 0.5 x10^3/uL Basophils # (Auto) 0.0 x10^3/uL Sodium Level 142 mmol/L Potassium Level 4.1 mmol/L Chloride Level 104 mmol/L Carbon Dioxide Level 31 mmol/L Anion Gap 7 Blood Urea Nitrogen 40 mg/dL Creatinine 0.9 mg/dL Estimated GFR (Cockcroft-Gault) 59.4 BUN/Creatinine Ratio 44 Glucose Level 91 mg/dL Calcium Level 8.8 mg/dL Total Bilirubin 0.2 mg/dL Aspartate Amino Transf (AST/SGOT) 18 U/L Alanine Aminotransferase (ALT/SGPT) 24 U/L Alkaline Phosphatase 63 U/L Troponin I Quantitative < 0.017 ng/mL ME-Mqu-T-Type Natriuretic Peptide 700 pg/mL Total Protein 7.1 g/dL Albumin 3.5 g/dL Albumin/Globulin Ratio 1.0 Urine Collection Type Unknown Urine Color Yellow Urine Clarity Clear Urine pH 6.5 Urine Specific [place] 1.020 Urine Protein Neg Urine Glucose (UA) Neg mg/dL Urine Ketones (Stick) Neg mg/dL Urine Blood Neg Urine Nitrite Neg Urine Bilirubin Neg Urine Urobilinogen Dipstick 0.2 mg/dL Urine Leukocyte Esterase Neg Urine RBC 0 /HPF Urine WBC Occ /HPF Urine Squamous Epithelial Cells Mod /LPF Urine Bacteria 0 /HPF Urine Mucus Slight /LPF Current Medications Medications (Trade) Dose Ordered Sig/Marguerite Route PRN Reason Start Time Stop Time Status Last Admin Dose Admin Potassium Chloride (Klor-Con) 40 meq 1X ONCE PO 01/04/21 19:00 01/04/21 19:07 DC 01/04/21 19:16 Acetaminophen (Tylenol) 500 mg PRN Q12HR PRN PO PAIN 01/04/21 23:00 Cancel Atorvastatin Calcium (Lipitor) 10 mg QHS PO 01/05/21 21:00 03/02/21 20:27 Furosemide (Lasix) 40 mg DAILY PO 01/05/21 09:00 03/02/21 08:02 Metoprolol Tartrate (Lopressor) 50 mg BID PO 01/05/21 09:00 03/02/21 20:27 Potassium Chloride (Klor-Con) 20 meq DAILY PO 01/05/21 09:00 01/11/21 15:00 DC 01/11/21 08:57 Polyethylene Glycol (miraLAX) 17 gm DAILY PO 01/05/21 09:00 03/02/21 08:04 Lorazepam (Ativan) 1 mg PRN Q4HRS PRN PO ANXIETY / AGITATION 01/04/21 23:00 01/09/21 10:42 DC 01/07/21 23:07 Lorazepam (Ativan Intensol) 1 mg PRN Q6HRS PRN PO ANXIETY / AGITATION 01/04/21 23:00 01/09/21 17:03 DC Risperidone (RisperDAL) 0.25 mg DAILY PO 01/05/21 09:00 01/22/21 17:34 DC 01/22/21 08:35 Risperidone (RisperDAL) 0.5 mg QHS PO 01/05/21 21:00 01/08/21 17:27 DC 01/07/21 20:28 Melatonin (Melatonin) 6 mg HS PO 01/05/21 21:00 01/08/21 17:27 DC 01/07/21 20:28 Acetaminophen (Tylenol) 650 mg PRN Q6HRS PRN PO MILD PAIN / TEMP > 100.3'F 01/04/21 22:45 01/29/21 14:47 Multi-Ingredient Ointment (Analgesic [place]) 1 abby PRN QID PRN TP MUSCLE PAIN 01/04/21 22:45 Al Hydroxide/Mg Hydroxide (Mylanta Plus Xs) 15 ml PRN AFTMEALHC PRN PO DYSPEPSIA 01/04/21 22:45 Magnesium Hydroxide (Milk Of Magnesia) 2,400 mg PRN QHS PRN PO CONSTIPATION 01/04/21 22:45 Potassium Chloride (Klor-Con) 40 meq 1X ONCE PO 01/05/21 15:45 01/05/21 15:49 DC 01/05/21 17:29 Potassium Chloride (Klor-Con) 20 meq BID PO 01/05/21 21:00 03/02/21 20:27 Sertraline HCl (Zoloft) 25 mg DAILY PO 01/07/21 09:00 01/09/21 18:00 DC 01/09/21 08:24 Sertraline HCl (Zoloft) 50 mg DAILY PO 01/10/21 09:00 01/14/21 11:10 DC 01/14/21 08:11 Melatonin (Melatonin) 3 mg HS PO 01/08/21 21:00 03/02/21 20:27 Trazodone HCl (Desyrel) 50 mg PRN QHS PRN PO INSOMNIA MRX1 01/08/21 17:30 03/02/21 20:27 Risperidone (RisperDAL) 1 mg QHS PO 01/08/21 21:00 01/08/21 19:47 DC Olanzapine (ZyPREXA ZYDIS) 2.5 mg PRN Q2HRS PRN PO PSYCHOSIS 01/08/21 19:45 03/02/21 05:32 Risperidone (RisperDAL) 0.5 mg HS PO 01/08/21 21:00 01/08/21 19:58 DC Risperidone (RisperDAL) 0.25 mg HS PO 01/08/21 20:00 01/08/21 20:01 DC Risperidone (RisperDAL) 0.25 mg HS PO 01/08/21 21:00 01/14/21 11:11 DC 01/13/21 20:11 Lorazepam (Ativan Intensol) 0.25 mg PRN Q6HRS PRN PO ANXIETY / AGITATION 01/09/21 17:15 01/09/21 17:46 DC Lorazepam (Ativan Intensol) 0.25 mg PRN TID PRN PO ANXIETY / AGITATION 01/09/21 17:45 02/26/21 13:48 Trazodone HCl (Desyrel) 50 mg 1445 ONCE PO 01/11/21 14:45 01/11/21 14:54 DC Mirtazapine (Remeron) 7.5 mg QHS PO 01/11/21 21:00 01/18/21 19:49 DC 01/17/21 19:38 Sertraline HCl (Zoloft) 75 mg DAILY PO 01/15/21 09:00 01/19/21 17:19 DC 01/19/21 08:14 Risperidone (RisperDAL) 0.5 mg QHS PO 01/14/21 21:00 03/02/21 20:27 Mirtazapine (Remeron Anum-Tab) 15 mg QHS PO 01/18/21 21:00 03/02/21 20:27 Sertraline HCl (Zoloft) 100 mg DAILY PO 01/20/21 09:00 03/02/21 08:03 Divalproex Sodium (Depakote Sprinkles) 125 mg DAILY PO 01/22/21 09:00 03/02/21 08:02 Divalproex Sodium (Depakote Sprinkles) 125 mg DAILYWSUP PO 01/21/21 17:00 03/02/21 17:26 Risperidone (RisperDAL) 0.5 mg DAILY PO 01/23/21 09:00 03/02/21 08:02 Nitroglycerin (Nitrostat) 0.4 mg PRN Q5MIN PRN SL CHEST PAIN 03/02/21 06:00 I have reviewed the current psychotropics carefully including drug interactions. Risk benefit ratio favors no change other than as noted in my dictated progress note. Diagnosis: Problems: (1) Dementia in Alzheimer's disease with depression (2) Dementia in Alzheimer's disease with delusions (3) Dementia of the Alzheimer's type with early onset with behavioral disturbance (4) Major neurocognitive disorder (5) Impulse control disorder, unspecified (6) Anxiety disorder, unspecified (7) Dementia, vascular, with depression (8) Dementia, vascular, with delusions OFE MONTENEGRO MD Mar 02, 2021 22:19
--- NOTE | 2021-03-02 22:33 | PDOC ---
Exam Note: Devang Note: This note is a late entry for 03/01/2021 covers elements not covered in my initial note. Subjective: The patient was seen face to face in the evening of 03/01/2021 with Ifeoma MARIANO discussed and reviewed the chart. The patient slept 4-1/4 hours previous night. She remains confused, not aggressive, wanders the hallways, redirects. At times she seems more lucid. I met with her in the hallway after her dinner time. She was unable to remember what she had for dinner. Review of Systems: No CV, , pulmonary, eye system symptoms on review. Reliability poor. Mental Status Exam: The patient is oriented to herself. Insight and judgment, recent and remote memory, attention and concentration is poor consistent with her diagnoses. Laboratory Data: Reviewed. Impression: Major neurocognitive disorder Alzheimer vascular with delusion, depression, and behavioral disturbance. Anxiety disorder unspecified. Impulse control disorder unspecified. Plan: Continue current psychotropics from initial note. Assessment: Vital Signs/I&O: Vital Signs Date Time Temp Pulse Resp B/P (MAP) Pulse Ox O2 Delivery O2 Flow Rate FiO2 03/02/21 20:27 68 137/65 03/02/21 15:24 97.9 16 94 Room Air I & O 03/01/21 03/01/21 03/02/21 14:59 22:59 06:59 Intake Total 600 ml 360 ml Balance 600 ml 360 ml Labs: Laboratory Tests Test 03/02/21 06:09 03/02/21 11:08 White Blood Count 4.2 x10^3/uL (4.0-11.0) Red Blood Count 3.38 x10^6/uL (3.50-5.40) L Hemoglobin 11.1 g/dL (12.0-15.5) L Hematocrit 33.4 % (36.0-47.0) L Mean Corpuscular Volume 99 fL (79-100) Mean Corpuscular Hemoglobin 33 pg (25-35) Mean Corpuscular Hemoglobin Concent 33 g/dL (31-37) Red Cell Distribution Width 14.2 % (11.5-14.5) Platelet Count 182 x10^3/uL (140-400) Neutrophils (%) (Auto) 50 % (31-73) Lymphocytes (%) (Auto) 24 % (24-48) Monocytes (%) (Auto) 15 % (0-9) H Eosinophils (%) (Auto) 11 % (0-3) H Basophils (%) (Auto) 1 % (0-3) Neutrophils # (Auto) 2.1 x10^3uL (1.8-7.7) Lymphocytes # (Auto) 1.0 x10^3/uL (1.0-4.8) Monocytes # (Auto) 0.6 x10^3/uL (0.0-1.1) Eosinophils # (Auto) 0.5 x10^3/uL (0.0-0.7) Basophils # (Auto) 0.0 x10^3/uL (0.0-0.2) Sodium Level 142 mmol/L (136-145) Potassium Level 4.1 mmol/L (3.5-5.1) Chloride Level 104 mmol/L (98-107) Carbon Dioxide Level 31 mmol/L (21-32) Anion Gap 7 (6-14) Blood Urea Nitrogen 40 mg/dL (7-20) H Creatinine 0.9 mg/dL (0.6-1.0) Estimated GFR (Cockcroft-Gault) 59.4 BUN/Creatinine Ratio 44 (6-20) H Glucose Level 91 mg/dL (70-99) Calcium Level 8.8 mg/dL (8.5-10.1) Total Bilirubin 0.2 mg/dL (0.2-1.0) Aspartate Amino Transferase (AST) 18 U/L (15-37) Alanine Aminotransferase (ALT) 24 U/L (14-59) Alkaline Phosphatase 63 U/L (46-116) Troponin I Quantitative < 0.017 ng/mL (0-0.055) ZA-Obv-M-Type Natriuretic Peptide 700 pg/mL (0-449) H Total Protein 7.1 g/dL (6.4-8.2) Albumin 3.5 g/dL (3.4-5.0) Albumin/Globulin Ratio 1.0 (1.0-1.7) Urine Collection Type Unknown Urine Color Yellow Urine Clarity Clear Urine pH 6.5 Urine Specific [place] 1.020 Urine Protein Neg (NEG-TRACE) Urine Glucose (UA) Neg mg/dL (NEG) Urine Ketones (Stick) Neg mg/dL (NEG) Urine Blood Neg (NEG) Urine Nitrite Neg (NEG) Urine Bilirubin Neg (NEG) Urine Urobilinogen Dipstick 0.2 mg/dL (0.2 mg/dL) Urine Leukocyte Esterase Neg (NEG) Urine RBC 0 /HPF (0-2) Urine WBC Occ /HPF (0-4) Urine Squamous Epithelial Cells Mod /LPF Urine Bacteria 0 /HPF (0-FEW) Urine Mucus Slight /LPF Current Medications: Meds: Laboratory Tests Test 03/02/21 06:09 03/02/21 11:08 White Blood Count 4.2 x10^3/uL Red Blood Count 3.38 x10^6/uL Hemoglobin 11.1 g/dL Hematocrit 33.4 % Mean Corpuscular Volume 99 fL Mean Corpuscular Hemoglobin 33 pg Mean Corpuscular Hemoglobin Concent 33 g/dL Red Cell Distribution Width 14.2 % Platelet Count 182 x10^3/uL Neutrophils (%) (Auto) 50 % Lymphocytes (%) (Auto) 24 % Monocytes (%) (Auto) 15 % Eosinophils (%) (Auto) 11 % Basophils (%) (Auto) 1 % Neutrophils # (Auto) 2.1 x10^3uL Lymphocytes # (Auto) 1.0 x10^3/uL Monocytes # (Auto) 0.6 x10^3/uL Eosinophils # (Auto) 0.5 x10^3/uL Basophils # (Auto) 0.0 x10^3/uL Sodium Level 142 mmol/L Potassium Level 4.1 mmol/L Chloride Level 104 mmol/L Carbon Dioxide Level 31 mmol/L Anion Gap 7 Blood Urea Nitrogen 40 mg/dL Creatinine 0.9 mg/dL Estimated GFR (Cockcroft-Gault) 59.4 BUN/Creatinine Ratio 44 Glucose Level 91 mg/dL Calcium Level 8.8 mg/dL Total Bilirubin 0.2 mg/dL Aspartate Amino Transf (AST/SGOT) 18 U/L Alanine Aminotransferase (ALT/SGPT) 24 U/L Alkaline Phosphatase 63 U/L Troponin I Quantitative < 0.017 ng/mL SX-Mqo-X-Type Natriuretic Peptide 700 pg/mL Total Protein 7.1 g/dL Albumin 3.5 g/dL Albumin/Globulin Ratio 1.0 Urine Collection Type Unknown Urine Color Yellow Urine Clarity Clear Urine pH 6.5 Urine Specific [place] 1.020 Urine Protein Neg Urine Glucose (UA) Neg mg/dL Urine Ketones (Stick) Neg mg/dL Urine Blood Neg Urine Nitrite Neg Urine Bilirubin Neg Urine Urobilinogen Dipstick 0.2 mg/dL Urine Leukocyte Esterase Neg Urine RBC 0 /HPF Urine WBC Occ /HPF Urine Squamous Epithelial Cells Mod /LPF Urine Bacteria 0 /HPF Urine Mucus Slight /LPF Current Medications Medications (Trade) Dose Ordered Sig/Marguerite Route PRN Reason Start Time Stop Time Status Last Admin Dose Admin Potassium Chloride (Klor-Con) 40 meq 1X ONCE PO 01/04/21 19:00 01/04/21 19:07 DC 01/04/21 19:16 Acetaminophen (Tylenol) 500 mg PRN Q12HR PRN PO PAIN 01/04/21 23:00 Cancel Atorvastatin Calcium (Lipitor) 10 mg QHS PO 01/05/21 21:00 03/02/21 20:27 Furosemide (Lasix) 40 mg DAILY PO 01/05/21 09:00 03/02/21 08:02 Metoprolol Tartrate (Lopressor) 50 mg BID PO 01/05/21 09:00 03/02/21 20:27 Potassium Chloride (Klor-Con) 20 meq DAILY PO 01/05/21 09:00 01/11/21 15:00 DC 01/11/21 08:57 Polyethylene Glycol (miraLAX) 17 gm DAILY PO 01/05/21 09:00 03/02/21 08:04 Lorazepam (Ativan) 1 mg PRN Q4HRS PRN PO ANXIETY / AGITATION 01/04/21 23:00 01/09/21 10:42 DC 01/07/21 23:07 Lorazepam (Ativan Intensol) 1 mg PRN Q6HRS PRN PO ANXIETY / AGITATION 01/04/21 23:00 01/09/21 17:03 DC Risperidone (RisperDAL) 0.25 mg DAILY PO 01/05/21 09:00 01/22/21 17:34 DC 01/22/21 08:35 Risperidone (RisperDAL) 0.5 mg QHS PO 01/05/21 21:00 01/08/21 17:27 DC 01/07/21 20:28 Melatonin (Melatonin) 6 mg HS PO 01/05/21 21:00 01/08/21 17:27 DC 01/07/21 20:28 Acetaminophen (Tylenol) 650 mg PRN Q6HRS PRN PO MILD PAIN / TEMP > 100.3'F 01/04/21 22:45 01/29/21 14:47 Multi-Ingredient Ointment (Analgesic [place]) 1 abby PRN QID PRN TP MUSCLE PAIN 01/04/21 22:45 Al Hydroxide/Mg Hydroxide (Mylanta Plus Xs) 15 ml PRN AFTMEALHC PRN PO DYSPEPSIA 01/04/21 22:45 Magnesium Hydroxide (Milk Of Magnesia) 2,400 mg PRN QHS PRN PO CONSTIPATION 01/04/21 22:45 Potassium Chloride (Klor-Con) 40 meq 1X ONCE PO 01/05/21 15:45 01/05/21 15:49 DC 01/05/21 17:29 Potassium Chloride (Klor-Con) 20 meq BID PO 01/05/21 21:00 03/02/21 20:27 Sertraline HCl (Zoloft) 25 mg DAILY PO 01/07/21 09:00 01/09/21 18:00 DC 01/09/21 08:24 Sertraline HCl (Zoloft) 50 mg DAILY PO 01/10/21 09:00 01/14/21 11:10 DC 01/14/21 08:11 Melatonin (Melatonin) 3 mg HS PO 01/08/21 21:00 03/02/21 20:27 Trazodone HCl (Desyrel) 50 mg PRN QHS PRN PO INSOMNIA MRX1 01/08/21 17:30 03/02/21 20:27 Risperidone (RisperDAL) 1 mg QHS PO 01/08/21 21:00 01/08/21 19:47 DC Olanzapine (ZyPREXA ZYDIS) 2.5 mg PRN Q2HRS PRN PO PSYCHOSIS 01/08/21 19:45 03/02/21 05:32 Risperidone (RisperDAL) 0.5 mg HS PO 01/08/21 21:00 01/08/21 19:58 DC Risperidone (RisperDAL) 0.25 mg HS PO 01/08/21 20:00 01/08/21 20:01 DC Risperidone (RisperDAL) 0.25 mg HS PO 01/08/21 21:00 01/14/21 11:11 DC 01/13/21 20:11 Lorazepam (Ativan Intensol) 0.25 mg PRN Q6HRS PRN PO ANXIETY / AGITATION 01/09/21 17:15 01/09/21 17:46 DC Lorazepam (Ativan Intensol) 0.25 mg PRN TID PRN PO ANXIETY / AGITATION 01/09/21 17:45 02/26/21 13:48 Trazodone HCl (Desyrel) 50 mg 1445 ONCE PO 01/11/21 14:45 01/11/21 14:54 DC Mirtazapine (Remeron) 7.5 mg QHS PO 01/11/21 21:00 01/18/21 19:49 DC 01/17/21 19:38 Sertraline HCl (Zoloft) 75 mg DAILY PO 01/15/21 09:00 01/19/21 17:19 DC 01/19/21 08:14 Risperidone (RisperDAL) 0.5 mg QHS PO 01/14/21 21:00 03/02/21 20:27 Mirtazapine (Remeron Anum-Tab) 15 mg QHS PO 01/18/21 21:00 03/02/21 20:27 Sertraline HCl (Zoloft) 100 mg DAILY PO 01/20/21 09:00 03/02/21 08:03 Divalproex Sodium (Depakote Sprinkles) 125 mg DAILY PO 01/22/21 09:00 03/02/21 08:02 Divalproex Sodium (Depakote Sprinkles) 125 mg DAILYWSUP PO 01/21/21 17:00 03/02/21 17:26 Risperidone (RisperDAL) 0.5 mg DAILY PO 01/23/21 09:00 03/02/21 08:02 Nitroglycerin (Nitrostat) 0.4 mg PRN Q5MIN PRN SL CHEST PAIN 03/02/21 06:00 I have reviewed the current psychotropics carefully including drug interactions. Risk benefit ratio favors no change other than as noted in my dictated progress note. Diagnosis: Problems: (1) Dementia in Alzheimer's disease with depression (2) Dementia in Alzheimer's disease with delusions (3) Dementia of the Alzheimer's type with early onset with behavioral disturbance (4) Major neurocognitive disorder (5) Impulse control disorder, unspecified (6) Anxiety disorder, unspecified (7) Dementia, vascular, with depression (8) Dementia, vascular, with delusions OFE MONTENEGRO MD Mar 02, 2021 22:33
--- NOTE | 2021-03-02 22:34 | PDOC ---
Exam Note: Devang Note: Please also refer to the separate dictated note~for this date of service dictated separately.~Patient seen individually. Discussed the patient with Nursing staff reviewed the chart.~Reviewed interim history and current functioning. Reviewed vital signs,~Labs/ Radiology~and current medications noted below. Continue current treatment with the changes noted in the dictated addendum note Assessment: Vital Signs/I&O: Vital Signs Date Time Temp Pulse Resp B/P (MAP) Pulse Ox O2 Delivery O2 Flow Rate FiO2 03/02/21 20:27 68 137/65 03/02/21 15:24 97.9 16 94 Room Air I & O 03/01/21 03/01/21 03/02/21 14:59 22:59 06:59 Intake Total 600 ml 360 ml Balance 600 ml 360 ml Labs: Laboratory Tests Test 03/02/21 06:09 03/02/21 11:08 White Blood Count 4.2 x10^3/uL (4.0-11.0) Red Blood Count 3.38 x10^6/uL (3.50-5.40) L Hemoglobin 11.1 g/dL (12.0-15.5) L Hematocrit 33.4 % (36.0-47.0) L Mean Corpuscular Volume 99 fL (79-100) Mean Corpuscular Hemoglobin 33 pg (25-35) Mean Corpuscular Hemoglobin Concent 33 g/dL (31-37) Red Cell Distribution Width 14.2 % (11.5-14.5) Platelet Count 182 x10^3/uL (140-400) Neutrophils (%) (Auto) 50 % (31-73) Lymphocytes (%) (Auto) 24 % (24-48) Monocytes (%) (Auto) 15 % (0-9) H Eosinophils (%) (Auto) 11 % (0-3) H Basophils (%) (Auto) 1 % (0-3) Neutrophils # (Auto) 2.1 x10^3uL (1.8-7.7) Lymphocytes # (Auto) 1.0 x10^3/uL (1.0-4.8) Monocytes # (Auto) 0.6 x10^3/uL (0.0-1.1) Eosinophils # (Auto) 0.5 x10^3/uL (0.0-0.7) Basophils # (Auto) 0.0 x10^3/uL (0.0-0.2) Sodium Level 142 mmol/L (136-145) Potassium Level 4.1 mmol/L (3.5-5.1) Chloride Level 104 mmol/L (98-107) Carbon Dioxide Level 31 mmol/L (21-32) Anion Gap 7 (6-14) Blood Urea Nitrogen 40 mg/dL (7-20) H Creatinine 0.9 mg/dL (0.6-1.0) Estimated GFR (Cockcroft-Gault) 59.4 BUN/Creatinine Ratio 44 (6-20) H Glucose Level 91 mg/dL (70-99) Calcium Level 8.8 mg/dL (8.5-10.1) Total Bilirubin 0.2 mg/dL (0.2-1.0) Aspartate Amino Transferase (AST) 18 U/L (15-37) Alanine Aminotransferase (ALT) 24 U/L (14-59) Alkaline Phosphatase 63 U/L (46-116) Troponin I Quantitative < 0.017 ng/mL (0-0.055) [id number]-Type Natriuretic Peptide 700 pg/mL (0-449) H Total Protein 7.1 g/dL (6.4-8.2) Albumin 3.5 g/dL (3.4-5.0) Albumin/Globulin Ratio 1.0 (1.0-1.7) Urine Collection Type Unknown Urine Color Yellow Urine Clarity Clear Urine pH 6.5 Urine Specific [place] 1.020 Urine Protein Neg (NEG-TRACE) Urine Glucose (UA) Neg mg/dL (NEG) Urine Ketones (Stick) Neg mg/dL (NEG) Urine Blood Neg (NEG) Urine Nitrite Neg (NEG) Urine Bilirubin Neg (NEG) Urine Urobilinogen Dipstick 0.2 mg/dL (0.2 mg/dL) Urine Leukocyte Esterase Neg (NEG) Urine RBC 0 /HPF (0-2) Urine WBC Occ /HPF (0-4) Urine Squamous Epithelial Cells Mod /LPF Urine Bacteria 0 /HPF (0-FEW) Urine Mucus Slight /LPF Current Medications: Meds: Laboratory Tests Test 03/02/21 06:09 03/02/21 11:08 White Blood Count 4.2 x10^3/uL Red Blood Count 3.38 x10^6/uL Hemoglobin 11.1 g/dL Hematocrit 33.4 % Mean Corpuscular Volume 99 fL Mean Corpuscular Hemoglobin 33 pg Mean Corpuscular Hemoglobin Concent 33 g/dL Red Cell Distribution Width 14.2 % Platelet Count 182 x10^3/uL Neutrophils (%) (Auto) 50 % Lymphocytes (%) (Auto) 24 % Monocytes (%) (Auto) 15 % Eosinophils (%) (Auto) 11 % Basophils (%) (Auto) 1 % Neutrophils # (Auto) 2.1 x10^3uL Lymphocytes # (Auto) 1.0 x10^3/uL Monocytes # (Auto) 0.6 x10^3/uL Eosinophils # (Auto) 0.5 x10^3/uL Basophils # (Auto) 0.0 x10^3/uL Sodium Level 142 mmol/L Potassium Level 4.1 mmol/L Chloride Level 104 mmol/L Carbon Dioxide Level 31 mmol/L Anion Gap 7 Blood Urea Nitrogen 40 mg/dL Creatinine 0.9 mg/dL Estimated GFR (Cockcroft-Gault) 59.4 BUN/Creatinine Ratio 44 Glucose Level 91 mg/dL Calcium Level 8.8 mg/dL Total Bilirubin 0.2 mg/dL Aspartate Amino Transf (AST/SGOT) 18 U/L Alanine Aminotransferase (ALT/SGPT) 24 U/L Alkaline Phosphatase 63 U/L Troponin I Quantitative < 0.017 ng/mL TK-[id number]-M-Type Natriuretic Peptide 700 pg/mL Total Protein 7.1 g/dL Albumin 3.5 g/dL Albumin/Globulin Ratio 1.0 Urine Collection Type Unknown Urine Color Yellow Urine Clarity Clear Urine pH 6.5 Urine Specific [place] 1.020 Urine Protein Neg Urine Glucose (UA) Neg mg/dL Urine Ketones (Stick) Neg mg/dL Urine Blood Neg Urine Nitrite Neg Urine Bilirubin Neg Urine Urobilinogen Dipstick 0.2 mg/dL Urine Leukocyte Esterase Neg Urine RBC 0 /HPF Urine WBC Occ /HPF Urine Squamous Epithelial Cells Mod /LPF Urine Bacteria 0 /HPF Urine Mucus Slight /LPF Current Medications Medications (Trade) Dose Ordered Sig/Marguerite Route PRN Reason Start Time Stop Time Status Last Admin Dose Admin Potassium Chloride (Klor-Con) 40 meq 1X ONCE PO 01/04/21 19:00 01/04/21 19:07 DC 01/04/21 19:16 Acetaminophen (Tylenol) 500 mg PRN Q12HR PRN PO PAIN 01/04/21 23:00 Cancel Atorvastatin Calcium (Lipitor) 10 mg QHS PO 01/05/21 21:00 03/02/21 20:27 Furosemide (Lasix) 40 mg DAILY PO 01/05/21 09:00 03/02/21 08:02 Metoprolol Tartrate (Lopressor) 50 mg BID PO 01/05/21 09:00 03/02/21 20:27 Potassium Chloride (Klor-Con) 20 meq DAILY PO 01/05/21 09:00 01/11/21 15:00 DC 01/11/21 08:57 Polyethylene Glycol (miraLAX) 17 gm DAILY PO 01/05/21 09:00 03/02/21 08:04 Lorazepam (Ativan) 1 mg PRN Q4HRS PRN PO ANXIETY / AGITATION 01/04/21 23:00 01/09/21 10:42 DC 01/07/21 23:07 Lorazepam (Ativan Intensol) 1 mg PRN Q6HRS PRN PO ANXIETY / AGITATION 01/04/21 23:00 01/09/21 17:03 DC Risperidone (RisperDAL) 0.25 mg DAILY PO 01/05/21 09:00 01/22/21 17:34 DC 01/22/21 08:35 Risperidone (RisperDAL) 0.5 mg QHS PO 01/05/21 21:00 01/08/21 17:27 DC 01/07/21 20:28 Melatonin (Melatonin) 6 mg HS PO 01/05/21 21:00 01/08/21 17:27 DC 01/07/21 20:28 Acetaminophen (Tylenol) 650 mg PRN Q6HRS PRN PO MILD PAIN / TEMP > 100.3'F 01/04/21 22:45 01/29/21 14:47 Multi-Ingredient Ointment (Analgesic [place]) 1 abby PRN QID PRN TP MUSCLE PAIN 01/04/21 22:45 Al Hydroxide/Mg Hydroxide (Mylanta Plus Xs) 15 ml PRN AFTMEALHC PRN PO DYSPEPSIA 01/04/21 22:45 Magnesium Hydroxide (Milk Of Magnesia) 2,400 mg PRN QHS PRN PO CONSTIPATION 01/04/21 22:45 Potassium Chloride (Klor-Con) 40 meq 1X ONCE PO 01/05/21 15:45 01/05/21 15:49 DC 01/05/21 17:29 Potassium Chloride (Klor-Con) 20 meq BID PO 01/05/21 21:00 03/02/21 20:27 Sertraline HCl (Zoloft) 25 mg DAILY PO 01/07/21 09:00 01/09/21 18:00 DC 01/09/21 08:24 Sertraline HCl (Zoloft) 50 mg DAILY PO 01/10/21 09:00 01/14/21 11:10 DC 01/14/21 08:11 Melatonin (Melatonin) 3 mg HS PO 01/08/21 21:00 03/02/21 20:27 Trazodone HCl (Desyrel) 50 mg PRN QHS PRN PO INSOMNIA MRX1 01/08/21 17:30 03/02/21 20:27 Risperidone (RisperDAL) 1 mg QHS PO 01/08/21 21:00 01/08/21 19:47 DC Olanzapine (ZyPREXA ZYDIS) 2.5 mg PRN Q2HRS PRN PO PSYCHOSIS 01/08/21 19:45 03/02/21 05:32 Risperidone (RisperDAL) 0.5 mg HS PO 01/08/21 21:00 01/08/21 19:58 DC Risperidone (RisperDAL) 0.25 mg HS PO 01/08/21 20:00 01/08/21 20:01 DC Risperidone (RisperDAL) 0.25 mg HS PO 01/08/21 21:00 01/14/21 11:11 DC 01/13/21 20:11 Lorazepam (Ativan Intensol) 0.25 mg PRN Q6HRS PRN PO ANXIETY / AGITATION 01/09/21 17:15 01/09/21 17:46 DC Lorazepam (Ativan Intensol) 0.25 mg PRN TID PRN PO ANXIETY / AGITATION 01/09/21 17:45 02/26/21 13:48 Trazodone HCl (Desyrel) 50 mg 1445 ONCE PO 01/11/21 14:45 01/11/21 14:54 DC Mirtazapine (Remeron) 7.5 mg QHS PO 01/11/21 21:00 01/18/21 19:49 DC 01/17/21 19:38 Sertraline HCl (Zoloft) 75 mg DAILY PO 01/15/21 09:00 01/19/21 17:19 DC 01/19/21 08:14 Risperidone (RisperDAL) 0.5 mg QHS PO 01/14/21 21:00 03/02/21 20:27 Mirtazapine (Remeron Anum-Tab) 15 mg QHS PO 01/18/21 21:00 03/02/21 20:27 Sertraline HCl (Zoloft) 100 mg DAILY PO 01/20/21 09:00 03/02/21 08:03 Divalproex Sodium (Depakote Sprinkles) 125 mg DAILY PO 01/22/21 09:00 03/02/21 08:02 Divalproex Sodium (Depakote Sprinkles) 125 mg DAILYWSUP PO 01/21/21 17:00 03/02/21 17:26 Risperidone (RisperDAL) 0.5 mg DAILY PO 01/23/21 09:00 03/02/21 08:02 Nitroglycerin (Nitrostat) 0.4 mg PRN Q5MIN PRN SL CHEST PAIN 03/02/21 06:00 I have reviewed the current psychotropics carefully including drug interactions. Risk benefit ratio favors no change other than as noted in my dictated progress note. 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
[2021-03-03 05:36] VITALS: BP 150/95
[2021-03-03] MEDS: risperiDONE 0.5 MG TABLET. PO SCH ×2 (08:27→19:51)
[2021-03-03] MEDS: METOPROLOL TART IMMED RELEASE 50 MG TABLET PO SCH ×2 (08:27→19:51)
[2021-03-03] MEDS: DIVALPROEX 125 MG CAP.SPRINK PO SCH ×2 (08:27→17:19)
[2021-03-03] MEDS: FUROSEMIDE 40 MG TABLET PO SCH (08:27)
[2021-03-03] MEDS: POTASSIUM CHLORIDE 20 MEQ TABLET.ER. PO SCH ×2 (08:28→19:51)
[2021-03-03] MEDS: POLYETHYLENE GLYCOL 3350 17 GM PACKET. PO SCH (08:28)
[2021-03-03] MEDS: SERTRALINE 100 MG TABLET. PO SCH (08:28)
[2021-03-03 15:25] VITALS: BP 131/61
[2021-03-03] MEDS: MELATONIN 3 MG TABLET PO SCH (19:50)
[2021-03-03] MEDS: ATORVASTATIN CALCIUM 10 MG TABLET. PO SCH (19:50)
[2021-03-03] MEDS: MIRTAZAPINE ODT 15 MG TAB.RAPDIS. PO SCH (19:50)
--- NOTE | 2021-03-03 22:02 | PDOC ---
Exam Note: Devang Note: Please also refer to the separate dictated note~for this date of service dictated separately.~Patient seen individually. Discussed the patient with Nursing staff reviewed the chart.~Reviewed interim history and current functioning. Reviewed vital signs,~Labs/ Radiology~and current medications noted below. Continue current treatment with the changes noted in the dictated addendum note Assessment: Vital Signs/I&O: Vital Signs Date Time Temp Pulse Resp B/P (MAP) Pulse Ox O2 Delivery O2 Flow Rate FiO2 03/03/21 19:51 70 140/62 03/03/21 15:25 97.2 18 98 03/03/21 05:36 Room Air I & O 03/02/21 03/02/21 03/03/21 15:00 23:00 07:00 Intake Total 780 ml 480 ml Balance 780 ml 480 ml Labs: Laboratory Tests Test 03/03/21 09:30 SARS-CoV-2 (PCR) Negative (NEGATIVE) Current Medications: Meds: Laboratory Tests Test 03/03/21 09:30 Coronavirus (COVID-19)(PCR) Negative Current Medications Medications (Trade) Dose Ordered Sig/Marguerite Route PRN Reason Start Time Stop Time Status Last Admin Dose Admin Potassium Chloride (Klor-Con) 40 meq 1X ONCE PO 01/04/21 19:00 01/04/21 19:07 DC 01/04/21 19:16 Acetaminophen (Tylenol) 500 mg PRN Q12HR PRN PO PAIN 01/04/21 23:00 Cancel Atorvastatin Calcium (Lipitor) 10 mg QHS PO 01/05/21 21:00 03/03/21 19:50 Furosemide (Lasix) 40 mg DAILY PO 01/05/21 09:00 03/03/21 08:27 Metoprolol Tartrate (Lopressor) 50 mg BID PO 01/05/21 09:00 03/03/21 19:51 Potassium Chloride (Klor-Con) 20 meq DAILY PO 01/05/21 09:00 01/11/21 15:00 DC 01/11/21 08:57 Polyethylene Glycol (miraLAX) 17 gm DAILY PO 01/05/21 09:00 03/03/21 08:28 Lorazepam (Ativan) 1 mg PRN Q4HRS PRN PO ANXIETY / AGITATION 01/04/21 23:00 01/09/21 10:42 DC 01/07/21 23:07 Lorazepam (Ativan Intensol) 1 mg PRN Q6HRS PRN PO ANXIETY / AGITATION 01/04/21 23:00 01/09/21 17:03 DC Risperidone (RisperDAL) 0.25 mg DAILY PO 01/05/21 09:00 01/22/21 17:34 DC 01/22/21 08:35 Risperidone (RisperDAL) 0.5 mg QHS PO 01/05/21 21:00 01/08/21 17:27 DC 01/07/21 20:28 Melatonin (Melatonin) 6 mg HS PO 01/05/21 21:00 01/08/21 17:27 DC 01/07/21 20:28 Acetaminophen (Tylenol) 650 mg PRN Q6HRS PRN PO MILD PAIN / TEMP > 100.3'F 01/04/21 22:45 01/29/21 14:47 Multi-Ingredient Ointment (Analgesic [place]) 1 abby PRN QID PRN TP MUSCLE PAIN 01/04/21 22:45 Al Hydroxide/Mg Hydroxide (Mylanta Plus Xs) 15 ml PRN AFTMEALHC PRN PO DYSPEPSIA 01/04/21 22:45 Magnesium Hydroxide (Milk Of Magnesia) 2,400 mg PRN QHS PRN PO CONSTIPATION 01/04/21 22:45 Potassium Chloride (Klor-Con) 40 meq 1X ONCE PO 01/05/21 15:45 01/05/21 15:49 DC 01/05/21 17:29 Potassium Chloride (Klor-Con) 20 meq BID PO 01/05/21 21:00 03/03/21 19:51 Sertraline HCl (Zoloft) 25 mg DAILY PO 01/07/21 09:00 01/09/21 18:00 DC 01/09/21 08:24 Sertraline HCl (Zoloft) 50 mg DAILY PO 01/10/21 09:00 01/14/21 11:10 DC 01/14/21 08:11 Melatonin (Melatonin) 3 mg HS PO 01/08/21 21:00 03/03/21 19:50 Trazodone HCl (Desyrel) 50 mg PRN QHS PRN PO INSOMNIA MRX1 01/08/21 17:30 03/02/21 20:27 Risperidone (RisperDAL) 1 mg QHS PO 01/08/21 21:00 01/08/21 19:47 DC Olanzapine (ZyPREXA ZYDIS) 2.5 mg PRN Q2HRS PRN PO PSYCHOSIS 01/08/21 19:45 03/02/21 05:32 Risperidone (RisperDAL) 0.5 mg HS PO 01/08/21 21:00 01/08/21 19:58 DC Risperidone (RisperDAL) 0.25 mg HS PO 01/08/21 20:00 01/08/21 20:01 DC Risperidone (RisperDAL) 0.25 mg HS PO 01/08/21 21:00 01/14/21 11:11 DC 01/13/21 20:11 Lorazepam (Ativan Intensol) 0.25 mg PRN Q6HRS PRN PO ANXIETY / AGITATION 01/09/21 17:15 01/09/21 17:46 DC Lorazepam (Ativan Intensol) 0.25 mg PRN TID PRN PO ANXIETY / AGITATION 01/09/21 17:45 02/26/21 13:48 Trazodone HCl (Desyrel) 50 mg 1445 ONCE PO 01/11/21 14:45 01/11/21 14:54 DC Mirtazapine (Remeron) 7.5 mg QHS PO 01/11/21 21:00 01/18/21 19:49 DC 01/17/21 19:38 Sertraline HCl (Zoloft) 75 mg DAILY PO 01/15/21 09:00 01/19/21 17:19 DC 01/19/21 08:14 Risperidone (RisperDAL) 0.5 mg QHS PO 01/14/21 21:00 03/03/21 19:51 Mirtazapine (Remeron Anum-Tab) 15 mg QHS PO 01/18/21 21:00 03/03/21 19:50 Sertraline HCl (Zoloft) 100 mg DAILY PO 01/20/21 09:00 03/03/21 08:28 Divalproex Sodium (Depakote Sprinkles) 125 mg DAILY PO 01/22/21 09:00 03/03/21 08:27 Divalproex Sodium (Depakote Sprinkles) 125 mg DAILYWSUP PO 01/21/21 17:00 8/18/21 17:19 Risperidone (RisperDAL) 0.5 mg DAILY PO 01/23/21 09:00 03/03/21 08:27 Nitroglycerin (Nitrostat) 0.4 mg PRN Q5MIN PRN SL CHEST PAIN 03/02/21 06:00 I have reviewed the current psychotropics carefully including drug interactions. Risk benefit ratio favors no change other than as noted in my dictated progress note. 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
[2021-03-04 05:17] VITALS: BP 140/54
[2021-03-04] MEDS: METOPROLOL TART IMMED RELEASE 50 MG TABLET PO SCH ×2 (09:02→20:14)
[2021-03-04] MEDS: risperiDONE 0.5 MG TABLET. PO SCH ×2 (09:02→20:14)
[2021-03-04] MEDS: POLYETHYLENE GLYCOL 3350 17 GM PACKET. PO SCH (09:02)
[2021-03-04] MEDS: FUROSEMIDE 40 MG TABLET PO SCH (09:02)
[2021-03-04] MEDS: DIVALPROEX 125 MG CAP.SPRINK PO SCH ×2 (09:02→17:59)
[2021-03-04] MEDS: POTASSIUM CHLORIDE 20 MEQ TABLET.ER. PO SCH ×2 (09:02→20:14)
[2021-03-04] MEDS: SERTRALINE 100 MG TABLET. PO SCH (09:02)
--- NOTE | 2021-03-04 11:15 | TX PLAN ---
Interdisciplinary Tx Plan Admission Information Jan 04, 2021 at 22:18 Legal Status (on Admission): Voluntary DPOA/Guardian Name: Emiliaon Perdomo Contact 1 Verified Code Status: DNR Allergies: Coded Allergies: Penicillins (Verified Allergy, Unknown, 01/04/21) benzonatate (Verified Allergy, Unknown, 01/04/21) ciprofloxacin (Verified Allergy, Unknown, 01/04/21) doxycycline (Verified Allergy, Unknown, 01/04/21) enalapril (Verified Allergy, Unknown, 01/04/21) erythromycin base (Verified Allergy, Unknown, 01/04/21) levofloxacin (Verified Allergy, Unknown, 01/04/21) Diagnoses Primary Diagnosis: Major Neurocognitive D/O Vascular Alzheimers with delusions, depression and BD. Reasons for Admission: Aggressive, Agitated, Combative, Confusion/Disoriented, Poor impulse control Problem in Patient's Words: According to the intake, pt is aggressive to staff and peers, resistive and combative at times of care, bit a nurse, agitated, irritable and hostile. Problems Active Problems: agitated resistive impulsive non-compliant with medication Inactive Problems: N/A Pt Strengths/Limitations Ability for [place]: Poor Cognitive Functioning/Ability: Fair Communication Skills/Ability: Fair Financial Resources: Fair Insight/Judgement: Fair Intellectual Ability: Fair Physical Health: Poor Social Skills: Poor Stability in Family: Excellent Stability in School/Work: Poor Verbal Skills: Fair Discharge Criteria Discharge Criteria: No need for close observ., Adequate arrangements @DC, Improved behavior, Improved mood/thought Preliminary Discharge Plan Preliminary DC Plan: Placement Needed Special Precautions Fall Risk: Moderate Initial D/C Plan Pt will need a different level of care upon discharge Identified Discharge Needs: Referrals to placement Currently Utilized Resources Currently Utilized Resources/P: Primary Care Physician Identified Problems/Hx/Goals Objectives/Short-Term Goals Short Term Goals: Dec. Aggression, Dec. Outbursts, Medication Stabilization, Promote Coping Skill Short Term Goals in Patient's: N/A Interventions/Frequency Staff Interventions/Frequency&: Psychiatrist to assess pt at least 3x per week for medication stabilization. Social Work to assess pt at least 2x per week to identify barriers to care and finalize discharge plans. Nursing to assess medication effects, behavior management and complete 15 minute checks daily. Encourage group paricipation in activities (if applicable) or 1:1 engagement based off Activity Dept goals. 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 Education: Graduated 12th grade Community Follow-up Primary Care Physicain Treatment Plan Explained Patient/English And Reading Instructor had this treatment plan explained to him/her as indicated by the signature below and has been given the opportunity to ask questions and make suggestions: Date: Patient/English And Reading Instructor Signature: Status Update Update Pt is eating 75% of meals and sleeping on average 7 hours per night. Pt continues to be disorganized in thoughts but is talkative and at times bossy with staff and her peers. Pt is often found in the hallway sitting in a chair taking short naps, but no behaviors (physical or verbal noted). Pt is compliant with medications floated in pudding or applesauce. Pt has placement at [facility] and is able to discharge to them on Monday. Pt will need a Covid swab completed on Monday per facility policy. SW will finalize all discharge plans with pt son Emiliano and [facility]. GALINA THOMSON Mar 04, 2021 11:15
[2021-03-04 16:04] VITALS: BP 162/76
[2021-03-04] MEDS: LORazepam INTENSOL 2 MG/ML BOTTLE PO PRN (16:06)
[2021-03-04] MEDS: ATORVASTATIN CALCIUM 10 MG TABLET. PO SCH (20:14)
[2021-03-04] MEDS: MELATONIN 3 MG TABLET PO SCH (20:14)
[2021-03-04] MEDS: MIRTAZAPINE ODT 15 MG TAB.RAPDIS. PO SCH (20:14)
--- NOTE | 2021-03-04 22:11 | PDOC ---
Exam Note: Devang Note: Please also refer to the separate dictated note~for this date of service dictated separately.~Patient seen individually. Discussed the patient with Nursing staff reviewed the chart.~Reviewed interim history and current functioning. Reviewed vital signs,~Labs/ Radiology~and current medications noted below. Continue current treatment with the changes noted in the dictated addendum note Assessment: Vital Signs/I&O: Vital Signs Date Time Temp Pulse Resp B/P (MAP) Pulse Ox O2 Delivery O2 Flow Rate FiO2 03/04/21 20:14 73 139/69 03/04/21 16:04 98.4 20 99 Room Air I & O 03/03/21 03/03/21 03/04/21 15:00 23:00 07:00 Intake Total 700 ml 470 ml Balance 700 ml 470 ml Current Medications: Meds: Current Medications Medications (Trade) Dose Ordered Sig/Marguerite Route PRN Reason Start Time Stop Time Status Last Admin Dose Admin Potassium Chloride (Klor-Con) 40 meq 1X ONCE PO 01/04/21 19:00 01/04/21 19:07 DC 01/04/21 19:16 Acetaminophen (Tylenol) 500 mg PRN Q12HR PRN PO PAIN 01/04/21 23:00 Cancel Atorvastatin Calcium (Lipitor) 10 mg QHS PO 01/05/21 21:00 03/04/21 20:14 Furosemide (Lasix) 40 mg DAILY PO 01/05/21 09:00 03/04/21 09:02 Metoprolol Tartrate (Lopressor) 50 mg BID PO 01/05/21 09:00 03/04/21 20:14 Potassium Chloride (Klor-Con) 20 meq DAILY PO 01/05/21 09:00 01/11/21 15:00 DC 01/11/21 08:57 Polyethylene Glycol (miraLAX) 17 gm DAILY PO 01/05/21 09:00 03/04/21 09:02 Lorazepam (Ativan) 1 mg PRN Q4HRS PRN PO ANXIETY / AGITATION 01/04/21 23:00 01/09/21 10:42 DC 01/07/21 23:07 Lorazepam (Ativan Intensol) 1 mg PRN Q6HRS PRN PO ANXIETY / AGITATION 01/04/21 23:00 01/09/21 17:03 DC Risperidone (RisperDAL) 0.25 mg DAILY PO 01/05/21 09:00 01/22/21 17:34 DC 01/22/21 08:35 Risperidone (RisperDAL) 0.5 mg QHS PO 01/05/21 21:00 01/08/21 17:27 DC 01/07/21 20:28 Melatonin (Melatonin) 6 mg HS PO 01/05/21 21:00 01/08/21 17:27 DC 01/07/21 20:28 Acetaminophen (Tylenol) 650 mg PRN Q6HRS PRN PO MILD PAIN / TEMP > 100.3'F 01/04/21 22:45 01/29/21 14:47 Multi-Ingredient Ointment (Analgesic [place]) 1 abby PRN QID PRN TP MUSCLE PAIN 01/04/21 22:45 Al Hydroxide/Mg Hydroxide (Mylanta Plus Xs) 15 ml PRN AFTMEALHC PRN PO DYSPEPSIA 01/04/21 22:45 Magnesium Hydroxide (Milk Of Magnesia) 2,400 mg PRN QHS PRN PO CONSTIPATION 01/04/21 22:45 Potassium Chloride (Klor-Con) 40 meq 1X ONCE PO 01/05/21 15:45 01/05/21 15:49 DC 01/05/21 17:29 Potassium Chloride (Klor-Con) 20 meq BID PO 01/05/21 21:00 03/04/21 20:14 Sertraline HCl (Zoloft) 25 mg DAILY PO 01/07/21 09:00 01/09/21 18:00 DC 01/09/21 08:24 Sertraline HCl (Zoloft) 50 mg DAILY PO 01/10/21 09:00 01/14/21 11:10 DC 01/14/21 08:11 Melatonin (Melatonin) 3 mg HS PO 01/08/21 21:00 03/04/21 20:14 Trazodone HCl (Desyrel) 50 mg PRN QHS PRN PO INSOMNIA MRX1 01/08/21 17:30 03/02/21 20:27 Risperidone (RisperDAL) 1 mg QHS PO 01/08/21 21:00 01/08/21 19:47 DC Olanzapine (ZyPREXA ZYDIS) 2.5 mg PRN Q2HRS PRN PO PSYCHOSIS 01/08/21 19:45 03/04/21 16:06 Risperidone (RisperDAL) 0.5 mg HS PO 01/08/21 21:00 01/08/21 19:58 DC Risperidone (RisperDAL) 0.25 mg HS PO 01/08/21 20:00 01/08/21 20:01 DC Risperidone (RisperDAL) 0.25 mg HS PO 01/08/21 21:00 01/14/21 11:11 DC 01/13/21 20:11 Lorazepam (Ativan Intensol) 0.25 mg PRN Q6HRS PRN PO ANXIETY / AGITATION 01/09/21 17:15 01/09/21 17:46 DC Lorazepam (Ativan Intensol) 0.25 mg PRN TID PRN PO ANXIETY / AGITATION 01/09/21 17:45 03/04/21 16:06 Trazodone HCl (Desyrel) 50 mg 1445 ONCE PO 01/11/21 14:45 01/11/21 14:54 DC Mirtazapine (Remeron) 7.5 mg QHS PO 01/11/21 21:00 01/18/21 19:49 DC 01/17/21 19:38 Sertraline HCl (Zoloft) 75 mg DAILY PO 01/15/21 09:00 01/19/21 17:19 DC 01/19/21 08:14 Risperidone (RisperDAL) 0.5 mg QHS PO 01/14/21 21:00 03/04/21 20:14 Mirtazapine (Remeron Anum-Tab) 15 mg QHS PO 01/18/21 21:00 03/04/21 20:14 Sertraline HCl (Zoloft) 100 mg DAILY PO 01/20/21 09:00 03/04/21 09:02 Divalproex Sodium (Depakote Sprinkles) 125 mg DAILY PO 01/22/21 09:00 03/04/21 09:02 Divalproex Sodium (Depakote Sprinkles) 125 mg DAILYWSUP PO 01/21/21 17:00 03/04/21 17:59 Risperidone (RisperDAL) 0.5 mg DAILY PO 01/23/21 09:00 03/04/21 09:02 Nitroglycerin (Nitrostat) 0.4 mg PRN Q5MIN PRN SL CHEST PAIN 03/02/21 06:00 I have reviewed the current psychotropics carefully including drug interactions. Risk benefit ratio favors no change other than as noted in my dictated progress note. 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
[2021-03-05 06:03] VITALS: BP 164/75
--- NOTE | 2021-03-05 06:41 | PDOC ---
Exam Note: Devang Note: This note is a late entry for 03/03/2021 covers elements not covered in my initial note. Subjective: The patient was seen face to face in the evening of 03/03/2021 with Kenna MARIANO discussed and reviewed the chart. The patient slept 9 hours previous night. UA is negative. She appears more lucid at times, alert and talkative, not aggressive. Review of Systems: No CV, , pulmonary, eye system symptoms on review. She is slightly hard of hearing. Mental Status Exam: The patient is oriented to herself. I met with her in her room. Insight and judgment, recent and remote memory, attention and concentration is poor consistent with her diagnoses. Laboratory Data: Reviewed. Impression: Major neurocognitive disorder Alzheimer vascular with delusion, depression, and behavioral disturbance. Anxiety disorder unspecified. Impulse control disorder unspecified. Plan: Continue current psychotropics from initial note. Assessment: Vital Signs/I&O: Vital Signs Date Time Temp Pulse Resp B/P (MAP) Pulse Ox O2 Delivery O2 Flow Rate FiO2 03/05/21 06:03 97.7 63 18 164/75 (104) 93 03/04/21 16:04 Room Air I & O0 03/04/21 03/04/21 03/05/21 15:00 23:00 07:00 Intake Total 700 ml 420 ml Balance 700 ml 420 ml Current Medications: Meds: Current Medications Medications (Trade) Dose Ordered Sig/Marguerite Route PRN Reason Start Time Stop Time Status Last Admin Dose Admin Potassium Chloride (Klor-Con) 40 meq 1X ONCE PO 01/04/21 19:00 01/04/21 19:07 DC 01/04/21 19:16 Acetaminophen (Tylenol) 500 mg PRN Q12HR PRN PO PAIN 01/04/21 23:00 Cancel Atorvastatin Calcium (Lipitor) 10 mg QHS PO 01/05/21 21:00 03/04/21 20:14 Furosemide (Lasix) 40 mg DAILY PO 01/05/21 09:00 03/04/21 09:02 Metoprolol Tartrate (Lopressor) 50 mg BID PO 01/05/21 09:00 03/04/21 20:14 Potassium Chloride (Klor-Con) 20 meq DAILY PO 01/05/21 09:00 01/11/21 15:00 DC 01/11/21 08:57 Polyethylene Glycol (miraLAX) 17 gm DAILY PO 01/05/21 09:00 03/04/21 09:02 Lorazepam (Ativan) 1 mg PRN Q4HRS PRN PO ANXIETY / AGITATION 01/04/21 23:00 01/09/21 10:42 DC 01/07/21 23:07 Lorazepam (Ativan Intensol) 1 mg PRN Q6HRS PRN PO ANXIETY / AGITATION 01/04/21 23:00 01/09/21 17:03 DC Risperidone (RisperDAL) 0.25 mg DAILY PO 01/05/21 09:00 01/22/21 17:34 DC 01/22/21 08:35 Risperidone (RisperDAL) 0.5 mg QHS PO 01/05/21 21:00 01/08/21 17:27 DC 01/07/21 20:28 Melatonin (Melatonin) 6 mg HS PO 01/05/21 21:00 01/08/21 17:27 DC 01/07/21 20:28 Acetaminophen (Tylenol) 650 mg PRN Q6HRS PRN PO MILD PAIN / TEMP > 100.3'F 01/04/21 22:45 01/29/21 14:47 Multi-Ingredient Ointment (Analgesic [place]) 1 abby PRN QID PRN TP MUSCLE PAIN 01/04/21 22:45 Al Hydroxide/Mg Hydroxide (Mylanta Plus Xs) 15 ml PRN AFTMEALHC PRN PO DYSPEPSIA 01/04/21 22:45 Magnesium Hydroxide (Milk Of Magnesia) 2,400 mg PRN QHS PRN PO CONSTIPATION 01/04/21 22:45 Potassium Chloride (Klor-Con) 40 meq 1X ONCE PO 01/05/21 15:45 01/05/21 15:49 DC 01/05/21 17:29 Potassium Chloride (Klor-Con) 20 meq BID PO 01/05/21 21:00 03/04/21 20:14 Sertraline HCl (Zoloft) 25 mg DAILY PO 01/07/21 09:00 01/09/21 18:00 DC 01/09/21 08:24 Sertraline HCl (Zoloft) 50 mg DAILY PO 01/10/21 09:00 01/14/21 11:10 DC 01/14/21 08:11 Melatonin (Melatonin) 3 mg HS PO 01/08/21 21:00 03/04/21 20:14 Trazodone HCl (Desyrel) 50 mg PRN QHS PRN PO INSOMNIA MRX1 01/08/21 17:30 03/02/21 20:27 Risperidone (RisperDAL) 1 mg QHS PO 01/08/21 21:00 01/08/21 19:47 DC Olanzapine (ZyPREXA ZYDIS) 2.5 mg PRN Q2HRS PRN PO PSYCHOSIS 01/08/21 19:45 03/04/21 16:06 Risperidone (RisperDAL) 0.5 mg HS PO 01/08/21 21:00 01/08/21 19:58 DC Risperidone (RisperDAL) 0.25 mg HS PO 01/08/21 20:00 01/08/21 20:01 DC Risperidone (RisperDAL) 0.25 mg HS PO 01/08/21 21:00 01/14/21 11:11 DC 01/13/21 20:11 Lorazepam (Ativan Intensol) 0.25 mg PRN Q6HRS PRN PO ANXIETY / AGITATION 01/09/21 17:15 01/09/21 17:46 DC Lorazepam (Ativan Intensol) 0.25 mg PRN TID PRN PO ANXIETY / AGITATION 01/09/21 17:45 03/04/21 16:06 Trazodone HCl (Desyrel) 50 mg 1445 ONCE PO 01/11/21 14:45 01/11/21 14:54 DC Mirtazapine (Remeron) 7.5 mg QHS PO 01/11/21 21:00 01/18/21 19:49 DC 01/17/21 19:38 Sertraline HCl (Zoloft) 75 mg DAILY PO 01/15/21 09:00 01/19/21 17:19 DC 01/19/21 08:14 Risperidone (RisperDAL) 0.5 mg QHS PO 01/14/21 21:00 03/04/21 20:14 Mirtazapine (Remeron Anum-Tab) 15 mg QHS PO 01/18/21 21:00 03/04/21 20:14 Sertraline HCl (Zoloft) 100 mg DAILY PO 01/20/21 09:00 03/04/21 09:02 Divalproex Sodium (Depakote Sprinkles) 125 mg DAILY PO 01/22/21 09:00 03/04/21 09:02 Divalproex Sodium (Depakote Sprinkles) 125 mg DAILYWSUP PO 01/21/21 17:00 03/04/21 17:59 Risperidone (RisperDAL) 0.5 mg DAILY PO 01/23/21 09:00 03/04/21 09:02 Nitroglycerin (Nitrostat) 0.4 mg PRN Q5MIN PRN SL CHEST PAIN 03/02/21 06:00 I have reviewed the current psychotropics carefully including drug interactions. Risk benefit ratio favors no change other than as noted in my dictated progress note. 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
--- NOTE | 2021-03-05 06:55 | PDOC ---
Exam Note: Devang Note: This note is a late entry for 03/04/2021 covers elements not covered in my initial note. Subjective The patient was reviewed at treatment team meeting individually in the morning on 03/04/2021 with Karli Villegas, Alejandra Pena (director of social services), Judith, activity therapy and Lam MARIANO, discussed and reviewed the chart. The patient slept 8 hours previous night. Appetite is 75%. She is irritable at times, intrusive, bossy. 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 Discussed with nursing staff again in the evening, around 4 p.m. she was agitated. Received Ativan and Zyprexa because of yelling and irritability and did much better after that. Review of Systems: No CV, , pulmonary, eye system symptoms on review. Mental Status Exam: The patient is oriented to herself. I met with her in her room. Insight and judgment, recent and remote memory, attention and concentration is poor consistent with her diagnoses. Laboratory Data: Reviewed. Impression: Major neurocognitive disorder Alzheimer vascular with delusion, depression, and behavioral disturbance. Anxiety disorder unspecified. Impulse control disorder unspecified. Plan: Continue current psychotropics from initial note. Assessment: Vital Signs/I&O: Vital Signs Date Time Temp Pulse Resp B/P (MAP) Pulse Ox O2 Delivery O2 Flow Rate FiO2 03/05/21 06:03 97.7 63 18 164/75 (104) 93 03/04/21 16:04 Room Air I & O 03/04/21 03/04/21 03/05/21 15:00 23:00 07:00 Intake Total 700 ml 420 ml Balance 700 ml 420 ml Current Medications: Meds: Current Medications Medications (Trade) Dose Ordered Sig/Marguerite Route PRN Reason Start Time Stop Time Status Last Admin Dose Admin Potassium Chloride (Klor-Con) 40 meq 1X ONCE PO 01/04/21 19:00 01/04/21 19:07 DC 01/04/21 19:16 Acetaminophen (Tylenol) 500 mg PRN Q12HR PRN PO PAIN 01/04/21 23:00 Cancel Atorvastatin Calcium (Lipitor) 10 mg QHS PO 01/05/21 21:00 03/04/21 20:14 Furosemide (Lasix) 40 mg DAILY PO 01/05/21 09:00 03/04/21 09:02 Metoprolol Tartrate (Lopressor) 50 mg BID PO 01/05/21 09:00 03/04/21 20:14 Potassium Chloride (Klor-Con) 20 meq DAILY PO 01/05/21 09:00 01/11/21 15:00 DC 01/11/21 08:57 Polyethylene Glycol (miraLAX) 17 gm DAILY PO 01/05/21 09:00 03/04/21 09:02 Lorazepam (Ativan) 1 mg PRN Q4HRS PRN PO ANXIETY / AGITATION 01/04/21 23:00 01/09/21 10:42 DC 01/07/21 23:07 Lorazepam (Ativan Intensol) 1 mg PRN Q6HRS PRN PO ANXIETY / AGITATION 01/04/21 23:00 01/09/21 17:03 DC Risperidone (RisperDAL) 0.25 mg DAILY PO 01/05/21 09:00 01/22/21 17:34 DC 01/22/21 08:35 Risperidone (RisperDAL) 0.5 mg QHS PO 01/05/21 21:00 01/08/21 17:27 DC 01/07/21 20:28 Melatonin (Melatonin) 6 mg HS PO 01/05/21 21:00 01/08/21 17:27 DC 01/07/21 20:28 Acetaminophen (Tylenol) 650 mg PRN Q6HRS PRN PO MILD PAIN / TEMP > 100.3'F 01/04/21 22:45 01/29/21 14:47 Multi-Ingredient Ointment (Analgesic [place]) 1 abby PRN QID PRN TP MUSCLE PAIN 01/04/21 22:45 Al Hydroxide/Mg Hydroxide (Mylanta Plus Xs) 15 ml PRN AFTMEALHC PRN PO DYSPEPSIA 01/04/21 22:45 Magnesium Hydroxide (Milk Of Magnesia) 2,400 mg PRN QHS PRN PO CONSTIPATION 01/04/21 22:45 Potassium Chloride (Klor-Con) 40 meq 1X ONCE PO 01/05/21 15:45 01/05/21 15:49 DC 01/05/21 17:29 Potassium Chloride (Klor-Con) 20 meq BID PO 01/05/21 21:00 03/04/21 20:14 Sertraline HCl (Zoloft) 25 mg DAILY PO 01/07/21 09:00 01/09/21 18:00 DC 01/09/21 08:24 Sertraline HCl (Zoloft) 50 mg DAILY PO 01/10/21 09:00 01/14/21 11:10 DC 01/14/21 08:11 Melatonin (Melatonin) 3 mg HS PO 01/08/21 21:00 03/04/21 20:14 Trazodone HCl (Desyrel) 50 mg PRN QHS PRN PO INSOMNIA MRX1 01/08/21 17:30 03/02/21 20:27 Risperidone (RisperDAL) 1 mg QHS PO 01/08/21 21:00 01/08/21 19:47 DC Olanzapine (ZyPREXA ZYDIS) 2.5 mg PRN Q2HRS PRN PO PSYCHOSIS 01/08/21 19:45 03/04/21 16:06 Risperidone (RisperDAL) 0.5 mg HS PO 01/08/21 21:00 01/08/21 19:58 DC Risperidone (RisperDAL) 0.25 mg HS PO 01/08/21 20:00 01/08/21 20:01 DC Risperidone (RisperDAL) 0.25 mg HS PO 01/08/21 21:00 01/14/21 11:11 DC 01/13/21 20:11 Lorazepam (Ativan Intensol) 0.25 mg PRN Q6HRS PRN PO ANXIETY / AGITATION 01/09/21 17:15 01/09/21 17:46 DC Lorazepam (Ativan Intensol) 0.25 mg PRN TID PRN PO ANXIETY / AGITATION 01/09/21 17:45 03/04/21 16:06 Trazodone HCl (Desyrel) 50 mg 1445 ONCE PO 01/11/21 14:45 01/11/21 14:54 DC Mirtazapine (Remeron) 7.5 mg QHS PO 01/11/21 21:00 01/18/21 19:49 DC 01/17/21 19:38 Sertraline HCl (Zoloft) 75 mg DAILY PO 01/15/21 09:00 01/19/21 17:19 DC 01/19/21 08:14 Risperidone (RisperDAL) 0.5 mg QHS PO 01/14/21 21:00 03/04/21 20:14 Mirtazapine (Remeron Anum-Tab) 15 mg QHS PO 01/18/21 21:00 03/04/21 20:14 Sertraline HCl (Zoloft) 100 mg DAILY PO 01/20/21 09:00 03/04/21 09:02 Divalproex Sodium (Depakote Sprinkles) 125 mg DAILY PO 01/22/21 09:00 03/04/21 09:02 Divalproex Sodium (Depakote Sprinkles) 125 mg DAILYWSUP PO 01/21/21 17:00 03/04/21 17:59 Risperidone (RisperDAL) 0.5 mg DAILY PO 01/23/21 09:00 03/04/21 09:02 Nitroglycerin (Nitrostat) 0.4 mg PRN Q5MIN PRN SL CHEST PAIN 03/02/21 06:00 Current Medications Medications (Trade) Dose Ordered Sig/Marguerite Route PRN Reason Start Time Stop Time Status Last Admin Dose Admin Potassium Chloride (Klor-Con) 40 meq 1X ONCE PO 01/04/21 19:00 01/04/21 19:07 DC 01/04/21 19:16 Acetaminophen (Tylenol) 500 mg PRN Q12HR PRN PO PAIN 01/04/21 23:00 Cancel Atorvastatin Calcium (Lipitor) 10 mg QHS PO 01/05/21 21:00 03/04/21 20:14 Furosemide (Lasix) 40 mg DAILY PO 01/05/21 09:00 03/04/21 09:02 Metoprolol Tartrate (Lopressor) 50 mg BID PO 01/05/21 09:00 03/04/21 20:14 Potassium Chloride (Klor-Con) 20 meq DAILY PO 01/05/21 09:00 01/11/21 15:00 DC 01/11/21 08:57 Polyethylene Glycol (miraLAX) 17 gm DAILY PO 01/05/21 09:00 03/04/21 09:02 Lorazepam (Ativan) 1 mg PRN Q4HRS PRN PO ANXIETY / AGITATION 01/04/21 23:00 01/09/21 10:42 DC 01/07/21 23:07 Lorazepam (Ativan Intensol) 1 mg PRN Q6HRS PRN PO ANXIETY / AGITATION 01/04/21 23:00 01/09/21 17:03 DC Risperidone (RisperDAL) 0.25 mg DAILY PO 01/05/21 09:00 01/22/21 17:34 DC 01/22/21 08:35 Risperidone (RisperDAL) 0.5 mg QHS PO 01/05/21 21:00 01/08/21 17:27 DC 01/07/21 20:28 Melatonin (Melatonin) 6 mg HS PO 01/05/21 21:00 01/08/21 17:27 DC 01/07/21 20:28 Acetaminophen (Tylenol) 650 mg PRN Q6HRS PRN PO MILD PAIN / TEMP > 100.3'F 01/04/21 22:45 01/29/21 14:47 Multi-Ingredient Ointment (Analgesic [place]) 1 abby PRN QID PRN TP MUSCLE PAIN 01/04/21 22:45 Al Hydroxide/Mg Hydroxide (Mylanta Plus Xs) 15 ml PRN AFTMEALHC PRN PO DYSPEPSIA 01/04/21 22:45 Magnesium Hydroxide (Milk Of Magnesia) 2,400 mg PRN QHS PRN PO CONSTIPATION 01/04/21 22:45 Potassium Chloride (Klor-Con) 40 meq 1X ONCE PO 01/05/21 15:45 01/05/21 15:49 DC 01/05/21 17:29 Potassium Chloride (Klor-Con) 20 meq BID PO 01/05/21 21:00 03/04/21 20:14 Sertraline HCl (Zoloft) 25 mg DAILY PO 01/07/21 09:00 01/09/21 18:00 DC 01/09/21 08:24 Sertraline HCl (Zoloft) 50 mg DAILY PO 01/10/21 09:00 01/14/21 11:10 DC 01/14/21 08:11 Melatonin (Melatonin) 3 mg HS PO 01/08/21 21:00 03/04/21 20:14 Trazodone HCl (Desyrel) 50 mg PRN QHS PRN PO INSOMNIA MRX1 01/08/21 17:30 03/02/21 20:27 Risperidone (RisperDAL) 1 mg QHS PO 01/08/21 21:00 01/08/21 19:47 DC Olanzapine (ZyPREXA ZYDIS) 2.5 mg PRN Q2HRS PRN PO PSYCHOSIS 01/08/21 19:45 03/04/21 16:06 Risperidone (RisperDAL) 0.5 mg HS PO 01/08/21 21:00 01/08/21 19:58 DC Risperidone (RisperDAL) 0.25 mg HS PO 01/08/21 20:00 01/08/21 20:01 DC Risperidone (RisperDAL) 0.25 mg HS PO 01/08/21 21:00 01/14/21 11:11 DC 01/13/21 20:11 Lorazepam (Ativan Intensol) 0.25 mg PRN Q6HRS PRN PO ANXIETY / AGITATION 01/09/21 17:15 01/09/21 17:46 DC Lorazepam (Ativan Intensol) 0.25 mg PRN TID PRN PO ANXIETY / AGITATION 01/09/21 17:45 03/04/21 16:06 Trazodone HCl (Desyrel) 50 mg 1445 ONCE PO 01/11/21 14:45 01/11/21 14:54 DC Mirtazapine (Remeron) 7.5 mg QHS PO 01/11/21 21:00 01/18/21 19:49 DC 01/17/21 19:38 Sertraline HCl (Zoloft) 75 mg DAILY PO 01/15/21 09:00 01/19/21 17:19 DC 01/19/21 08:14 Risperidone (RisperDAL) 0.5 mg QHS PO 01/14/21 21:00 03/04/21 20:14 Mirtazapine (Remeron Anum-Tab) 15 mg QHS PO 01/18/21 21:00 03/04/21 20:14 Sertraline HCl (Zoloft) 100 mg DAILY PO 01/20/21 09:00 03/04/21 09:02 Divalproex Sodium (Depakote Sprinkles) 125 mg DAILY PO 01/22/21 09:00 03/04/21 09:02 Divalproex Sodium (Depakote Sprinkles) 125 mg DAILYWSUP PO 01/21/21 17:00 03/04/21 17:59 Risperidone (RisperDAL) 0.5 mg DAILY PO 01/23/21 09:00 03/04/21 09:02 Nitroglycerin (Nitrostat) 0.4 mg PRN Q5MIN PRN SL CHEST PAIN 03/02/21 06:00 I have reviewed the current psychotropics carefully including drug interactions. Risk benefit ratio favors no change other than as noted in my dictated progress note. 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
[2021-03-05] MEDS: METOPROLOL TART IMMED RELEASE 50 MG TABLET PO SCH ×2 (07:53→20:14)
[2021-03-05] MEDS: POTASSIUM CHLORIDE 20 MEQ TABLET.ER. PO SCH ×2 (07:53→20:13)
[2021-03-05] MEDS: FUROSEMIDE 40 MG TABLET PO SCH (07:53)
[2021-03-05] MEDS: POLYETHYLENE GLYCOL 3350 17 GM PACKET. PO SCH (07:54)
[2021-03-05] MEDS: SERTRALINE 100 MG TABLET. PO SCH (07:54)
[2021-03-05] MEDS: DIVALPROEX 125 MG CAP.SPRINK PO SCH ×2 (07:54→17:09)
[2021-03-05] MEDS: risperiDONE 0.5 MG TABLET. PO SCH ×2 (07:54→20:14)
[2021-03-05] MEDS: ACETAMINOPHEN 325 MG TABLET PO PRN (15:11)
[2021-03-05 15:39] VITALS: BP 122/67
[2021-03-05] MEDS: MELATONIN 3 MG TABLET PO SCH (20:13)
[2021-03-05] MEDS: ATORVASTATIN CALCIUM 10 MG TABLET. PO SCH (20:13)
[2021-03-05] MEDS: MIRTAZAPINE ODT 15 MG TAB.RAPDIS. PO SCH (20:13)
--- NOTE | 2021-03-05 21:58 | PDOC ---
Exam Note: Devang Note: Please also refer to the separate dictated note~for this date of service dictated separately.~Patient seen individually. Discussed the patient with Nursing staff reviewed the chart.~Reviewed interim history and current functioning. Reviewed vital signs,~Labs/ Radiology~and current medications noted below. Continue current treatment with the changes noted in the dictated addendum note Assessment: Vital Signs/I&O: Vital Signs Date Time Temp Pulse Resp B/P (MAP) Pulse Ox O2 Delivery O2 Flow Rate FiO2 03/05/21 20:14 68 122/67 03/05/21 15:39 98.0 18 96 03/04/21 16:04 Room Air I & O 03/04/21 03/04/21 03/05/21 15:00 23:00 07:00 Intake Total 700 ml 420 ml Balance 700 ml 420 ml Current Medications: Meds: Current Medications Medications (Trade) Dose Ordered Sig/Marguerite Route PRN Reason Start Time Stop Time Status Last Admin Dose Admin Potassium Chloride (Klor-Con) 40 meq 1X ONCE PO 01/04/21 19:00 01/04/21 19:07 DC 01/04/21 19:16 Acetaminophen (Tylenol) 500 mg PRN Q12HR PRN PO PAIN 01/04/21 23:00 Cancel Atorvastatin Calcium (Lipitor) 10 mg QHS PO 01/05/21 21:00 03/05/21 20:13 Furosemide (Lasix) 40 mg DAILY PO 01/05/21 09:00 03/05/21 07:53 Metoprolol Tartrate (Lopressor) 50 mg BID PO 01/05/21 09:00 03/05/21 20:14 Potassium Chloride (Klor-Con) 20 meq DAILY PO 01/05/21 09:00 01/11/21 15:00 DC 01/11/21 08:57 Polyethylene Glycol (miraLAX) 17 gm DAILY PO 01/05/21 09:00 03/05/21 07:54 Lorazepam (Ativan) 1 mg PRN Q4HRS PRN PO ANXIETY / AGITATION 01/04/21 23:00 01/09/21 10:42 DC 01/07/21 23:07 Lorazepam (Ativan Intensol) 1 mg PRN Q6HRS PRN PO ANXIETY / AGITATION 01/04/21 23:00 01/09/21 17:03 DC Risperidone (RisperDAL) 0.25 mg DAILY PO 01/05/21 09:00 01/22/21 17:34 DC 01/22/21 08:35 Risperidone (RisperDAL) 0.5 mg QHS PO 01/05/21 21:00 01/08/21 17:27 DC 01/07/21 20:28 Melatonin (Melatonin) 6 mg HS PO 01/05/21 21:00 01/08/21 17:27 DC 01/07/21 20:28 Acetaminophen (Tylenol) 650 mg PRN Q6HRS PRN PO MILD PAIN / TEMP > 100.3'F 01/04/21 22:45 03/05/21 15:11 Multi-Ingredient Ointment (Analgesic [place]) 1 abby PRN QID PRN TP MUSCLE PAIN 01/04/21 22:45 Al Hydroxide/Mg Hydroxide (Mylanta Plus Xs) 15 ml PRN AFTMEALHC PRN PO DYSPEPSIA 01/04/21 22:45 Magnesium Hydroxide (Milk Of Magnesia) 2,400 mg PRN QHS PRN PO CONSTIPATION 01/04/21 22:45 Potassium Chloride (Klor-Con) 40 meq 1X ONCE PO 01/05/21 15:45 01/05/21 15:49 DC 01/05/21 17:29 Potassium Chloride (Klor-Con) 20 meq BID PO 01/05/21 21:00 03/05/21 20:13 Sertraline HCl (Zoloft) 25 mg DAILY PO 01/07/21 09:00 01/09/21 18:00 DC 01/09/21 08:24 Sertraline HCl (Zoloft) 50 mg DAILY PO 01/10/21 09:00 01/14/21 11:10 DC 01/14/21 08:11 Melatonin (Melatonin) 3 mg HS PO 01/08/21 21:00 03/05/21 20:13 Trazodone HCl (Desyrel) 50 mg PRN QHS PRN PO INSOMNIA MRX1 01/08/21 17:30 03/02/21 20:27 Risperidone (RisperDAL) 1 mg QHS PO 01/08/21 21:00 01/08/21 19:47 DC Olanzapine (ZyPREXA ZYDIS) 2.5 mg PRN Q2HRS PRN PO PSYCHOSIS 01/08/21 19:45 03/04/21 16:06 Risperidone (RisperDAL) 0.5 mg HS PO 01/08/21 21:00 01/08/21 19:58 DC Risperidone (RisperDAL) 0.25 mg HS PO 01/08/21 20:00 01/08/21 20:01 DC Risperidone (RisperDAL) 0.25 mg HS PO 01/08/21 21:00 01/14/21 11:11 DC 01/13/21 20:11 Lorazepam (Ativan Intensol) 0.25 mg PRN Q6HRS PRN PO ANXIETY / AGITATION 01/09/21 17:15 01/09/21 17:46 DC Lorazepam (Ativan Intensol) 0.25 mg PRN TID PRN PO ANXIETY / AGITATION 01/09/21 17:45 03/04/21 16:06 Trazodone HCl (Desyrel) 50 mg 1445 ONCE PO 01/11/21 14:45 01/11/21 14:54 DC Mirtazapine (Remeron) 7.5 mg QHS PO 01/11/21 21:00 01/18/21 19:49 DC 01/17/21 19:38 Sertraline HCl (Zoloft) 75 mg DAILY PO 01/15/21 09:00 01/19/21 17:19 DC 01/19/21 08:14 Risperidone (RisperDAL) 0.5 mg QHS PO 01/14/21 21:00 03/05/21 20:14 Mirtazapine (Remeron Anum-Tab) 15 mg QHS PO 01/18/21 21:00 03/05/21 20:13 Sertraline HCl (Zoloft) 100 mg DAILY PO 01/20/21 09:00 03/05/21 07:54 Divalproex Sodium (Depakote Sprinkles) 125 mg DAILY PO 01/22/21 09:00 03/05/21 07:54 Divalproex Sodium (Depakote Sprinkles) 125 mg DAILYWSUP PO 01/21/21 17:00 03/05/21 17:09 Risperidone (RisperDAL) 0.5 mg DAILY PO 01/23/21 09:00 03/05/21 07:54 Nitroglycerin (Nitrostat) 0.4 mg PRN Q5MIN PRN SL CHEST PAIN 03/02/21 06:00 I have reviewed the current psychotropics carefully including drug interactions. Risk benefit ratio favors no change other than as noted in my dictated progress note. Diagnosis: Problems: (1) Dementia in Alzheimer's disease with depression (2) Dementia in Alzheimer's disease with delusions (3) Dementia of the Alzheimer's type with early onset with behavioral disturbance (4) Major neurocognitive disorder (5) Impulse control disorder, unspecified (6) Anxiety disorder, unspecified (7) Dementia, vascular, with depression (8) Dementia, vascular, with delusions OFE MONTENEGRO MD Mar 05, 2021 21:58
[2021-03-06 05:25] VITALS: BP 146/71
[2021-03-06] MEDS: risperiDONE 0.5 MG TABLET. PO SCH ×2 (08:08→20:01)
[2021-03-06] MEDS: SERTRALINE 100 MG TABLET. PO SCH (08:08)
[2021-03-06] MEDS: POTASSIUM CHLORIDE 20 MEQ TABLET.ER. PO SCH ×2 (08:09→20:00)
[2021-03-06] MEDS: DIVALPROEX 125 MG CAP.SPRINK PO SCH ×2 (08:09→17:02)
[2021-03-06] MEDS: FUROSEMIDE 40 MG TABLET PO SCH (08:09)
[2021-03-06] MEDS: POLYETHYLENE GLYCOL 3350 17 GM PACKET. PO SCH (08:09)
[2021-03-06] MEDS: METOPROLOL TART IMMED RELEASE 50 MG TABLET PO SCH ×2 (08:09→20:01)
[2021-03-06 15:46] VITALS: BP 115/63
[2021-03-06] MEDS: ATORVASTATIN CALCIUM 10 MG TABLET. PO SCH (20:00)
[2021-03-06] MEDS: MELATONIN 3 MG TABLET PO SCH (20:00)
[2021-03-06] MEDS: MIRTAZAPINE ODT 15 MG TAB.RAPDIS. PO SCH (20:01)
[2021-03-06] MEDS: traZODone 50 MG TABLET. PO PRN (20:01)
--- NOTE | 2021-03-06 21:55 | PDOC ---
Exam Note: Devang Note: Please also refer to the separate dictated note~for this date of service dictated separately.~Patient seen individually. Discussed the patient with Nursing staff reviewed the chart.~Reviewed interim history and current functioning. Reviewed vital signs,~Labs/ Radiology~and current medications noted below. Continue current treatment with the changes noted in the dictated addendum note Assessment: Vital Signs/I&O: Vital Signs Date Time Temp Pulse Resp B/P (MAP) Pulse Ox O2 Delivery O2 Flow Rate FiO2 03/06/21 20:01 67 115/63 03/06/21 15:46 98.2 16 95 03/04/21 16:04 Room Air I & O 03/05/21 03/05/21 03/06/21 15:00 23:00 07:00 Intake Total 680 ml 600 ml Balance 680 ml 600 ml Current Medications: Meds: Current Medications Medications (Trade) Dose Ordered Sig/Marguerite Route PRN Reason Start Time Stop Time Status Last Admin Dose Admin Potassium Chloride (Klor-Con) 40 meq 1X ONCE PO 01/04/21 19:00 01/04/21 19:07 DC 01/04/21 19:16 Acetaminophen (Tylenol) 500 mg PRN Q12HR PRN PO PAIN 01/04/21 23:00 Cancel Atorvastatin Calcium (Lipitor) 10 mg QHS PO 01/05/21 21:00 03/06/21 20:00 Furosemide (Lasix) 40 mg DAILY PO 01/05/21 09:00 03/06/21 08:09 Metoprolol Tartrate (Lopressor) 50 mg BID PO 01/05/21 09:00 03/06/21 20:01 Potassium Chloride (Klor-Con) 20 meq DAILY PO 01/05/21 09:00 01/11/21 15:00 DC 01/11/21 08:57 Polyethylene Glycol (miraLAX) 17 gm DAILY PO 01/05/21 09:00 03/06/21 08:09 Lorazepam (Ativan) 1 mg PRN Q4HRS PRN PO ANXIETY / AGITATION 01/04/21 23:00 01/09/21 10:42 DC 01/07/21 23:07 Lorazepam (Ativan Intensol) 1 mg PRN Q6HRS PRN PO ANXIETY / AGITATION 01/04/21 23:00 01/09/21 17:03 DC Risperidone (RisperDAL) 0.25 mg DAILY PO 01/05/21 09:00 01/22/21 17:34 DC 01/22/21 08:35 Risperidone (RisperDAL) 0.5 mg QHS PO 01/05/21 21:00 01/08/21 17:27 DC 01/07/21 20:28 Melatonin (Melatonin) 6 mg HS PO 01/05/21 21:00 01/08/21 17:27 DC 01/07/21 20:28 Acetaminophen (Tylenol) 650 mg PRN Q6HRS PRN PO MILD PAIN / TEMP > 100.3'F 01/04/21 22:45 03/05/21 15:11 Multi-Ingredient Ointment (Analgesic [place]) 1 abby PRN QID PRN TP MUSCLE PAIN 01/04/21 22:45 Al Hydroxide/Mg Hydroxide (Mylanta Plus Xs) 15 ml PRN AFTMEALHC PRN PO DYSPEPSIA 01/04/21 22:45 Magnesium Hydroxide (Milk Of Magnesia) 2,400 mg PRN QHS PRN PO CONSTIPATION 01/04/21 22:45 Potassium Chloride (Klor-Con) 40 meq 1X ONCE PO 01/05/21 15:45 01/05/21 15:49 DC 01/05/21 17:29 Potassium Chloride (Klor-Con) 20 meq BID PO 01/05/21 21:00 03/06/21 20:00 Sertraline HCl (Zoloft) 25 mg DAILY PO 01/07/21 09:00 01/09/21 18:00 DC 01/09/21 08:24 Sertraline HCl (Zoloft) 50 mg DAILY PO 01/10/21 09:00 01/14/21 11:10 DC 01/14/21 08:11 Melatonin (Melatonin) 3 mg HS PO 01/08/21 21:00 03/06/21 20:00 Trazodone HCl (Desyrel) 50 mg PRN QHS PRN PO INSOMNIA MRX1 01/08/21 17:30 03/06/21 20:01 Risperidone (RisperDAL) 1 mg QHS PO 01/08/21 21:00 01/08/21 19:47 DC Olanzapine (ZyPREXA ZYDIS) 2.5 mg PRN Q2HRS PRN PO PSYCHOSIS 01/08/21 19:45 03/06/21 20:00 Risperidone (RisperDAL) 0.5 mg HS PO 01/08/21 21:00 01/08/21 19:58 DC Risperidone (RisperDAL) 0.25 mg HS PO 01/08/21 20:00 01/08/21 20:01 DC Risperidone (RisperDAL) 0.25 mg HS PO 01/08/21 21:00 01/14/21 11:11 DC 01/13/21 20:11 Lorazepam (Ativan Intensol) 0.25 mg PRN Q6HRS PRN PO ANXIETY / AGITATION 01/09/21 17:15 01/09/21 17:46 DC Lorazepam (Ativan Intensol) 0.25 mg PRN TID PRN PO ANXIETY / AGITATION 01/09/21 17:45 03/04/21 16:06 Trazodone HCl (Desyrel) 50 mg 1445 ONCE PO 01/11/21 14:45 01/11/21 14:54 DC Mirtazapine (Remeron) 7.5 mg QHS PO 01/11/21 21:00 01/18/21 19:49 DC 01/17/21 19:38 Sertraline HCl (Zoloft) 75 mg DAILY PO 01/15/21 09:00 01/19/21 17:19 DC 01/19/21 08:14 Risperidone (RisperDAL) 0.5 mg QHS PO 01/14/21 21:00 03/06/21 20:01 Mirtazapine (Remeron Anum-Tab) 15 mg QHS PO 01/18/21 21:00 03/06/21 20:01 Sertraline HCl (Zoloft) 100 mg DAILY PO 01/20/21 09:00 03/06/21 08:08 Divalproex Sodium (Depakote Sprinkles) 125 mg DAILY PO 01/22/21 09:00 03/06/21 08:09 Divalproex Sodium (Depakote Sprinkles) 125 mg DAILYWSUP PO 01/21/21 17:00 03/06/21 17:02 Risperidone (RisperDAL) 0.5 mg DAILY PO 01/23/21 09:00 03/06/21 08:08 Nitroglycerin (Nitrostat) 0.4 mg PRN Q5MIN PRN SL CHEST PAIN 03/02/21 06:00 I have reviewed the current psychotropics carefully including drug interactions. Risk benefit ratio favors no change other than as noted in my dictated progress note. Diagnosis: Problems: (1) Dementia in Alzheimer's disease with depression (2) Dementia in Alzheimer's disease with delusions (3) Dementia of the Alzheimer's type with early onset with behavioral disturbance (4) Major neurocognitive disorder (5) Impulse control disorder, unspecified (6) Anxiety disorder, unspecified (7) Dementia, vascular, with depression (8) Dementia, vascular, with delusions OFE MONTENEGRO MD Mar 06, 2021 21:55
[2021-03-07 06:36] VITALS: BP 116/58
[2021-03-07] MEDS: DIVALPROEX 125 MG CAP.SPRINK PO SCH ×2 (08:23→17:17)
[2021-03-07] MEDS: METOPROLOL TART IMMED RELEASE 50 MG TABLET PO SCH ×2 (08:24→19:52)
[2021-03-07] MEDS: POTASSIUM CHLORIDE 20 MEQ TABLET.ER. PO SCH ×2 (08:24→19:51)
[2021-03-07] MEDS: SERTRALINE 100 MG TABLET. PO SCH (08:24)
[2021-03-07] MEDS: risperiDONE 0.5 MG TABLET. PO SCH ×2 (08:24→19:52)
[2021-03-07] MEDS: FUROSEMIDE 40 MG TABLET PO SCH (08:25)
[2021-03-07] MEDS: POLYETHYLENE GLYCOL 3350 17 GM PACKET. PO SCH (08:26)
[2021-03-07 16:03] VITALS: BP 106/67
[2021-03-07] MEDS: MELATONIN 3 MG TABLET PO SCH (19:52)
[2021-03-07] MEDS: MIRTAZAPINE ODT 15 MG TAB.RAPDIS. PO SCH (19:52)
[2021-03-07] MEDS: traZODone 50 MG TABLET. PO PRN (19:52)
[2021-03-07] MEDS: ATORVASTATIN CALCIUM 10 MG TABLET. PO SCH (19:52)
[2021-03-07] MEDS ORDERED: NITR0.4T22 SL (22:50)
--- NOTE | 2021-03-07 23:05 | PDOC ---
Exam Note: Devang Note: Please also refer to the separate dictated note~for this date of service dictated separately.~Patient seen individually. Discussed the patient with Nursing staff reviewed the chart.~Reviewed interim history and current functioning. Reviewed vital signs,~Labs/ Radiology~and current medications noted below. Continue current treatment with the changes noted in the dictated addendum note Assessment: Vital Signs/I&O: Vital Signs Date Time Temp Pulse Resp B/P (MAP) Pulse Ox O2 Delivery O2 Flow Rate FiO2 03/07/21 19:52 74 123/68 03/07/21 16:03 97.4 18 96 03/04/21 16:04 Room Air I & O 03/06/21 03/06/21 03/07/21 14:59 22:59 06:59 Intake Total 480 ml 720 ml Balance 480 ml 720 ml Labs: Laboratory Tests Test 03/07/21 06:00 SARS-CoV-2 (PCR) Negative (NEGATIVE) Current Medications: Meds: Laboratory Tests Test 03/07/21 06:00 Coronavirus (COVID-19)(PCR) Negative Current Medications Medications (Trade) Dose Ordered Sig/Marguerite Route PRN Reason Start Time Stop Time Status Last Admin Dose Admin Potassium Chloride (Klor-Con) 40 meq 1X ONCE PO 01/04/21 19:00 01/04/21 19:07 DC 01/04/21 19:16 Acetaminophen (Tylenol) 500 mg PRN Q12HR PRN PO PAIN 01/04/21 23:00 Cancel Atorvastatin Calcium (Lipitor) 10 mg QHS PO 01/05/21 21:00 03/07/21 19:52 Furosemide (Lasix) 40 mg DAILY PO 01/05/21 09:00 03/07/21 08:25 Metoprolol Tartrate (Lopressor) 50 mg BID PO 01/05/21 09:00 03/07/21 19:52 Potassium Chloride (Klor-Con) 20 meq DAILY PO 01/05/21 09:00 01/11/21 15:00 DC 01/11/21 08:57 Polyethylene Glycol (miraLAX) 17 gm DAILY PO 01/05/21 09:00 03/06/21 08:09 Lorazepam (Ativan) 1 mg PRN Q4HRS PRN PO ANXIETY / AGITATION 01/04/21 23:00 01/09/21 10:42 DC 01/07/21 23:07 Lorazepam (Ativan Intensol) 1 mg PRN Q6HRS PRN PO ANXIETY / AGITATION 01/04/21 23:00 01/09/21 17:03 DC Risperidone (RisperDAL) 0.25 mg DAILY PO 01/05/21 09:00 01/22/21 17:34 DC 01/22/21 08:35 Risperidone (RisperDAL) 0.5 mg QHS PO 01/05/21 21:00 01/08/21 17:27 DC 01/07/21 20:28 Melatonin (Melatonin) 6 mg HS PO 01/05/21 21:00 01/08/21 17:27 DC 01/07/21 20:28 Acetaminophen (Tylenol) 650 mg PRN Q6HRS PRN PO MILD PAIN / TEMP > 100.3'F 01/04/21 22:45 03/05/21 15:11 Multi-Ingredient Ointment (Analgesic [place]) 1 abby PRN QID PRN TP MUSCLE PAIN 01/04/21 22:45 Al Hydroxide/Mg Hydroxide (Mylanta Plus Xs) 15 ml PRN AFTMEALHC PRN PO DYSPEPSIA 01/04/21 22:45 Magnesium Hydroxide (Milk Of Magnesia) 2,400 mg PRN QHS PRN PO CONSTIPATION 01/04/21 22:45 Potassium Chloride (Klor-Con) 40 meq 1X ONCE PO 01/05/21 15:45 01/05/21 15:49 DC 01/05/21 17:29 Potassium Chloride (Klor-Con) 20 meq BID PO 01/05/21 21:00 03/07/21 19:51 Sertraline HCl (Zoloft) 25 mg DAILY PO 01/07/21 09:00 01/09/21 18:00 DC 01/09/21 08:24 Sertraline HCl (Zoloft) 50 mg DAILY PO 01/10/21 09:00 01/14/21 11:10 DC 01/14/21 08:11 Melatonin (Melatonin) 3 mg HS PO 01/08/21 21:00 03/07/21 19:52 Trazodone HCl (Desyrel) 50 mg PRN QHS PRN PO INSOMNIA MRX1 01/08/21 17:30 03/07/21 19:52 Risperidone (RisperDAL) 1 mg QHS PO 01/08/21 21:00 01/08/21 19:47 DC Olanzapine (ZyPREXA ZYDIS) 2.5 mg PRN Q2HRS PRN PO PSYCHOSIS 01/08/21 19:45 03/07/21 20:33 Risperidone (RisperDAL) 0.5 mg HS PO 01/08/21 21:00 01/08/21 19:58 DC Risperidone (RisperDAL) 0.25 mg HS PO 01/08/21 20:00 01/08/21 20:01 DC Risperidone (RisperDAL) 0.25 mg HS PO 01/08/21 21:00 01/14/21 11:11 DC 01/13/21 20:11 Lorazepam (Ativan Intensol) 0.25 mg PRN Q6HRS PRN PO ANXIETY / AGITATION 01/09/21 17:15 01/09/21 17:46 DC Lorazepam (Ativan Intensol) 0.25 mg PRN TID PRN PO ANXIETY / AGITATION 01/09/21 17:45 03/04/21 16:06 Trazodone HCl (Desyrel) 50 mg 1445 ONCE PO 01/11/21 14:45 01/11/21 14:54 DC Mirtazapine (Remeron) 7.5 mg QHS PO 01/11/21 21:00 01/18/21 19:49 DC 01/17/21 19:38 Sertraline HCl (Zoloft) 75 mg DAILY PO 01/15/21 09:00 01/19/21 17:19 DC 01/19/21 08:14 Risperidone (RisperDAL) 0.5 mg QHS PO 01/14/21 21:00 03/07/21 19:52 Mirtazapine (Remeron Anum-Tab) 15 mg QHS PO 01/18/21 21:00 03/07/21 19:52 Sertraline HCl (Zoloft) 100 mg DAILY PO 01/20/21 09:00 03/07/21 08:24 Divalproex Sodium (Depakote Sprinkles) 125 mg DAILY PO 01/22/21 09:00 03/07/21 08:23 Divalproex Sodium (Depakote Sprinkles) 125 mg DAILYWSUP PO 01/21/21 17:00 03/07/21 17:17 Risperidone (RisperDAL) 0.5 mg DAILY PO 01/23/21 09:00 03/07/21 08:24 Nitroglycerin (Nitrostat) 0.4 mg PRN Q5MIN PRN SL CHEST PAIN 03/02/21 06:00 I have reviewed the current psychotropics carefully including drug interactions. Risk benefit ratio favors no change other than as noted in my dictated progress note. 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
[2021-03-08 05:56] VITALS: BP 157/63
--- NOTE | 2021-03-08 06:32 | PDOC ---
Exam Note: Devang Note: This note is a late entry for 03/05/2021 covers elements not covered in my initial note. Subjective: The patient was seen face to face in the evening of 03/05/2021 with Silva MARIANO, discussed and reviewed the chart. The patient slept 9 hours previous night. She has been somewhat domineering towards some of the other demented patients but does redirect. She is not aggressive. Review of Systems: No CV, , pulmonary, eye, ENT system symptoms on review. Reliability poor. Mental Status Exam: The patient is oriented to herself. I met with her in her room. Insight and judgment, recent and remote memory, attention and concentration is poor consistent with her diagnoses. Laboratory Data: Reviewed. Impression: Major neurocognitive disorder Alzheimer vascular with delusion, depression, and behavioral disturbance. Anxiety disorder unspecified. Impulse control disorder unspecified. Plan: Continue current psychotropics from initial note. Assessment: Vital Signs/I&O: Vital Signs Date Time Temp Pulse Resp B/P (MAP) Pulse Ox O2 Delivery O2 Flow Rate FiO2 03/08/21 05:56 97.0 73 20 157/63 (94) 92 03/04/21 16:04 Room Air I & O 03/07/21 03/07/21 03/08/21 15:00 23:00 07:00 Intake Total 960 ml 480 ml 120 ml Balance 960 ml 480 ml 120 ml Current Medications: Meds: Current Medications Medications (Trade) Dose Ordered Sig/Marguerite Route PRN Reason Start Time Stop Time Status Last Admin Dose Admin Potassium Chloride (Klor-Con) 40 meq 1X ONCE PO 01/04/21 19:00 01/04/21 19:07 DC 01/04/21 19:16 Acetaminophen (Tylenol) 500 mg PRN Q12HR PRN PO PAIN 01/04/21 23:00 Cancel Atorvastatin Calcium (Lipitor) 10 mg QHS PO 01/05/21 21:00 03/07/21 19:52 Furosemide (Lasix) 40 mg DAILY PO 01/05/21 09:00 03/07/21 08:25 Metoprolol Tartrate (Lopressor) 50 mg BID PO 01/05/21 09:00 03/07/21 19:52 Potassium Chloride (Klor-Con) 20 meq DAILY PO 01/05/21 09:00 01/11/21 15:00 DC 01/11/21 08:57 Polyethylene Glycol (miraLAX) 17 gm DAILY PO 01/05/21 09:00 03/06/21 08:09 Lorazepam (Ativan) 1 mg PRN Q4HRS PRN PO ANXIETY / AGITATION 01/04/21 23:00 01/09/21 10:42 DC 01/07/21 23:07 Lorazepam (Ativan Intensol) 1 mg PRN Q6HRS PRN PO ANXIETY / AGITATION 01/04/21 23:00 01/09/21 17:03 DC Risperidone (RisperDAL) 0.25 mg DAILY PO 01/05/21 09:00 01/22/21 17:34 DC 01/22/21 08:35 Risperidone (RisperDAL) 0.5 mg QHS PO 01/05/21 21:00 01/08/21 17:27 DC 01/07/21 20:28 Melatonin (Melatonin) 6 mg HS PO 01/05/21 21:00 01/08/21 17:27 DC 01/07/21 20:28 Acetaminophen (Tylenol) 650 mg PRN Q6HRS PRN PO MILD PAIN / TEMP > 100.3'F 01/04/21 22:45 03/05/21 15:11 Multi-Ingredient Ointment (Analgesic [place]) 1 abby PRN QID PRN TP MUSCLE PAIN 01/04/21 22:45 Al Hydroxide/Mg Hydroxide (Mylanta Plus Xs) 15 ml PRN AFTMEALHC PRN PO DYSPEPSIA 01/04/21 22:45 Magnesium Hydroxide (Milk Of Magnesia) 2,400 mg PRN QHS PRN PO CONSTIPATION 01/04/21 22:45 Potassium Chloride (Klor-Con) 40 meq 1X ONCE PO 01/05/21 15:45 01/05/21 15:49 DC 01/05/21 17:29 Potassium Chloride (Klor-Con) 20 meq BID PO 01/05/21 21:00 03/07/21 19:51 Sertraline HCl (Zoloft) 25 mg DAILY PO 01/07/21 09:00 01/09/21 18:00 DC 01/09/21 08:24 Sertraline HCl (Zoloft) 50 mg DAILY PO 01/10/21 09:00 01/14/21 11:10 DC 01/14/21 08:11 Melatonin (Melatonin) 3 mg HS PO 01/08/21 21:00 03/07/21 19:52 Trazodone HCl (Desyrel) 50 mg PRN QHS PRN PO INSOMNIA MRX1 01/08/21 17:30 03/07/21 19:52 Risperidone (RisperDAL) 1 mg QHS PO 01/08/21 21:00 01/08/21 19:47 DC Olanzapine (ZyPREXA ZYDIS) 2.5 mg PRN Q2HRS PRN PO PSYCHOSIS 01/08/21 19:45 03/07/21 20:33 Risperidone (RisperDAL) 0.5 mg HS PO 01/08/21 21:00 01/08/21 19:58 DC Risperidone (RisperDAL) 0.25 mg HS PO 01/08/21 20:00 01/08/21 20:01 DC Risperidone (RisperDAL) 0.25 mg HS PO 01/08/21 21:00 01/14/21 11:11 DC 01/13/21 20:11 Lorazepam (Ativan Intensol) 0.25 mg PRN Q6HRS PRN PO ANXIETY / AGITATION 01/09/21 17:15 01/09/21 17:46 DC Lorazepam (Ativan Intensol) 0.25 mg PRN TID PRN PO ANXIETY / AGITATION 01/09/21 17:45 03/04/21 16:06 Trazodone HCl (Desyrel) 50 mg 1445 ONCE PO 01/11/21 14:45 01/11/21 14:54 DC Mirtazapine (Remeron) 7.5 mg QHS PO 01/11/21 21:00 01/18/21 19:49 DC 01/17/21 19:38 Sertraline HCl (Zoloft) 75 mg DAILY PO 01/15/21 09:00 01/19/21 17:19 DC 01/19/21 08:14 Risperidone (RisperDAL) 0.5 mg QHS PO 01/14/21 21:00 03/07/21 19:52 Mirtazapine (Remeron Anum-Tab) 15 mg QHS PO 01/18/21 21:00 03/07/21 19:52 Sertraline HCl (Zoloft) 100 mg DAILY PO 01/20/21 09:00 03/07/21 08:24 Divalproex Sodium (Depakote Sprinkles) 125 mg DAILY PO 01/22/21 09:00 03/07/21 08:23 Divalproex Sodium (Depakote Sprinkles) 125 mg DAILYWSUP PO 01/21/21 17:00 03/07/21 17:17 Risperidone (RisperDAL) 0.5 mg DAILY PO 01/23/21 09:00 03/07/21 08:24 Nitroglycerin (Nitrostat) 0.4 mg PRN Q5MIN PRN SL CHEST PAIN 03/02/21 06:00 I have reviewed the current psychotropics carefully including drug interactions. Risk benefit ratio favors no change other than as noted in my dictated progress note. 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
--- NOTE | 2021-03-08 06:44 | PDOC ---
Exam Note: Devang Note: This note is a late entry for 03/06/2021 covers elements not covered in my initial note. Subjective: The patient was seen face to face in the evening of 03/06/2021 with Reyna MARIANO, discussed and reviewed the chart. The patient slept 6-1/2 hours previous night. I met with her in the hallway. 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 Review of Systems: No CV, , pulmonary, eye system symptoms on review. Mental Status Exam: The patient is oriented to herself. Insight and judgment, recent and remote memory, attention and concentration is poor consistent with her diagnoses. Laboratory Data: Reviewed. Impression: Major neurocognitive disorder Alzheimer vascular with delusion, depression, and behavioral disturbance. Anxiety disorder unspecified. Impulse control disorder unspecified. Plan: Continue current psychotropics from initial note. Assessment: Vital Signs/I&O: Vital Signs Date Time Temp Pulse Resp B/P (MAP) Pulse Ox O2 Delivery O2 Flow Rate FiO2 03/08/21 05:56 97.0 73 20 157/63 (94) 92 03/04/21 16:04 Room Air I & O 03/07/21 03/07/21 03/08/21 15:00 23:00 07:00 Intake Total 960 ml 480 ml 120 ml Balance 960 ml 480 ml 120 ml Current Medications: Meds: Current Medications Medications (Trade) Dose Ordered Sig/Marguerite Route PRN Reason Start Time Stop Time Status Last Admin Dose Admin Potassium Chloride (Klor-Con) 40 meq 1X ONCE PO 01/04/21 19:00 01/04/21 19:07 DC 01/04/21 19:16 Acetaminophen (Tylenol) 500 mg PRN Q12HR PRN PO PAIN 01/04/21 23:00 Cancel Atorvastatin Calcium (Lipitor) 10 mg QHS PO 01/05/21 21:00 03/07/21 19:52 Furosemide (Lasix) 40 mg DAILY PO 01/05/21 09:00 03/07/21 08:25 Metoprolol Tartrate (Lopressor) 50 mg BID PO 01/05/21 09:00 03/07/21 19:52 Potassium Chloride (Klor-Con) 20 meq DAILY PO 01/05/21 09:00 01/11/21 15:00 DC 01/11/21 08:57 Polyethylene Glycol (miraLAX) 17 gm DAILY PO 01/05/21 09:00 03/06/21 08:09 Lorazepam (Ativan) 1 mg PRN Q4HRS PRN PO ANXIETY / AGITATION 01/04/21 23:00 01/09/21 10:42 DC 01/07/21 23:07 Lorazepam (Ativan Intensol) 1 mg PRN Q6HRS PRN PO ANXIETY / AGITATION 01/04/21 23:00 01/09/21 17:03 DC Risperidone (RisperDAL) 0.25 mg DAILY PO 01/05/21 09:00 01/22/21 17:34 DC 01/22/21 08:35 Risperidone (RisperDAL) 0.5 mg QHS PO 01/05/21 21:00 01/08/21 17:27 DC 01/07/21 20:28 Melatonin (Melatonin) 6 mg HS PO 01/05/21 21:00 01/08/21 17:27 DC 01/07/21 20:28 Acetaminophen (Tylenol) 650 mg PRN Q6HRS PRN PO MILD PAIN / TEMP > 100.3'F 01/04/21 22:45 03/05/21 15:11 Multi-Ingredient Ointment (Analgesic [place]) 1 abby PRN QID PRN TP MUSCLE PAIN 01/04/21 22:45 Al Hydroxide/Mg Hydroxide (Mylanta Plus Xs) 15 ml PRN AFTMEALHC PRN PO DYSPEPSIA 01/04/21 22:45 Magnesium Hydroxide (Milk Of Magnesia) 2,400 mg PRN QHS PRN PO CONSTIPATION 01/04/21 22:45 Potassium Chloride (Klor-Con) 40 meq 1X ONCE PO 01/05/21 15:45 01/05/21 15:49 DC 01/05/21 17:29 Potassium Chloride (Klor-Con) 20 meq BID PO 01/05/21 21:00 03/07/21 19:51 Sertraline HCl (Zoloft) 25 mg DAILY PO 01/07/21 09:00 01/09/21 18:00 DC 01/09/21 08:24 Sertraline HCl (Zoloft) 50 mg DAILY PO 01/10/21 09:00 01/14/21 11:10 DC 01/14/21 08:11 Melatonin (Melatonin) 3 mg HS PO 01/08/21 21:00 03/07/21 19:52 Trazodone HCl (Desyrel) 50 mg PRN QHS PRN PO INSOMNIA MRX1 01/08/21 17:30 03/07/21 19:52 Risperidone (RisperDAL) 1 mg QHS PO 01/08/21 21:00 01/08/21 19:47 DC Olanzapine (ZyPREXA ZYDIS) 2.5 mg PRN Q2HRS PRN PO PSYCHOSIS 01/08/21 19:45 03/07/21 20:33 Risperidone (RisperDAL) 0.5 mg HS PO 01/08/21 21:00 01/08/21 19:58 DC Risperidone (RisperDAL) 0.25 mg HS PO 01/08/21 20:00 01/08/21 20:01 DC Risperidone (RisperDAL) 0.25 mg HS PO 01/08/21 21:00 01/14/21 11:11 DC 01/13/21 20:11 Lorazepam (Ativan Intensol) 0.25 mg PRN Q6HRS PRN PO ANXIETY / AGITATION 01/09/21 17:15 01/09/21 17:46 DC Lorazepam (Ativan Intensol) 0.25 mg PRN TID PRN PO ANXIETY / AGITATION 01/09/21 17:45 03/04/21 16:06 Trazodone HCl (Desyrel) 50 mg 1445 ONCE PO 01/11/21 14:45 01/11/21 14:54 DC Mirtazapine (Remeron) 7.5 mg QHS PO 01/11/21 21:00 01/18/21 19:49 DC 01/17/21 19:38 Sertraline HCl (Zoloft) 75 mg DAILY PO 01/15/21 09:00 01/19/21 17:19 DC 01/19/21 08:14 Risperidone (RisperDAL) 0.5 mg QHS PO 01/14/21 21:00 03/07/21 19:52 Mirtazapine (Remeron Anum-Tab) 15 mg QHS PO 01/18/21 21:00 03/07/21 19:52 Sertraline HCl (Zoloft) 100 mg DAILY PO 01/20/21 09:00 03/07/21 08:24 Divalproex Sodium (Depakote Sprinkles) 125 mg DAILY PO 01/22/21 09:00 03/07/21 08:23 Divalproex Sodium (Depakote Sprinkles) 125 mg DAILYWSUP PO 01/21/21 17:00 03/07/21 17:17 Risperidone (RisperDAL) 0.5 mg DAILY PO 01/23/21 09:00 03/07/21 08:24 Nitroglycerin (Nitrostat) 0.4 mg PRN Q5MIN PRN SL CHEST PAIN 03/02/21 06:00 I have reviewed the current psychotropics carefully including drug interactions. Risk benefit ratio favors no change other than as noted in my dictated progress note. Diagnosis: Problems: (1) Medical clearance for psychiatric admission (2) Dementia in Alzheimer's disease with depression (3) Dementia in Alzheimer's disease with delusions (4) Dementia of the Alzheimer's type with early onset with behavioral disturbance (5) Major neurocognitive disorder (6) Impulse control disorder, unspecified (7) Anxiety disorder, unspecified (8) Dementia, vascular, with depression (9) Dementia, vascular, with delusions OFE MONTENEGRO MD Mar 08, 2021 06:44
--- NOTE | 2021-03-08 06:55 | PDOC ---
Exam Note: Devang Note: This note is a late entry for 03/07/2021 covers elements not covered in my initial note. Subjective: The patient was seen face to face in the evening of 03/07/2021 with Radha MARIANO, discussed and reviewed the chart. The patient slept 6-1/2 hours previous night. She has been somewhat confused, irritable, demanding but does redirect. Review of Systems: No CV, , pulmonary, eye system symptoms on review. Reliability poor. Mental Status Exam: The patient is oriented to herself. I met with her in her room. Insight and judgment, recent and remote memory, attention and concentration, fund of knowledge is poor consistent with her diagnoses. Laboratory Data: Reviewed. Impression: Major neurocognitive disorder Alzheimer vascular with delusion, depression, and behavioral disturbance. Anxiety disorder unspecified. Impulse control disorder unspecified. Plan: Continue current psychotropics from initial note. Discharge her back to intermediate tomorrow. Assessment: Vital Signs/I&O: Vital Signs Date Time Temp Pulse Resp B/P (MAP) Pulse Ox O2 Delivery O2 Flow Rate FiO2 03/08/21 05:56 97.0 73 20 157/63 (94) 92 03/04/21 16:04 Room Air I & O 03/07/21 03/07/21 03/08/21 15:00 23:00 07:00 Intake Total 960 ml 480 ml 120 ml Balance 960 ml 480 ml 120 ml Current Medications: Meds: Current Medications Medications (Trade) Dose Ordered Sig/Marguerite Route PRN Reason Start Time Stop Time Status Last Admin Dose Admin Potassium Chloride (Klor-Con) 40 meq 1X ONCE PO 01/04/21 19:00 01/04/21 19:07 DC 01/04/21 19:16 Acetaminophen (Tylenol) 500 mg PRN Q12HR PRN PO PAIN 01/04/21 23:00 Cancel Atorvastatin Calcium (Lipitor) 10 mg QHS PO 01/05/21 21:00 03/07/21 19:52 Furosemide (Lasix) 40 mg DAILY PO 01/05/21 09:00 03/07/21 08:25 Metoprolol Tartrate (Lopressor) 50 mg BID PO 01/05/21 09:00 03/07/21 19:52 Potassium Chloride (Klor-Con) 20 meq DAILY PO 01/05/21 09:00 01/11/21 15:00 DC 01/11/21 08:57 Polyethylene Glycol (miraLAX) 17 gm DAILY PO 01/05/21 09:00 03/06/21 08:09 Lorazepam (Ativan) 1 mg PRN Q4HRS PRN PO ANXIETY / AGITATION 01/04/21 23:00 01/09/21 10:42 DC 01/07/21 23:07 Lorazepam (Ativan Intensol) 1 mg PRN Q6HRS PRN PO ANXIETY / AGITATION 01/04/21 23:00 01/09/21 17:03 DC Risperidone (RisperDAL) 0.25 mg DAILY PO 01/05/21 09:00 01/22/21 17:34 DC 01/22/21 08:35 Risperidone (RisperDAL) 0.5 mg QHS PO 01/05/21 21:00 01/08/21 17:27 DC 01/07/21 20:28 Melatonin (Melatonin) 6 mg HS PO 01/05/21 21:00 01/08/21 17:27 DC 01/07/21 20:28 Acetaminophen (Tylenol) 650 mg PRN Q6HRS PRN PO MILD PAIN / TEMP > 100.3'F 01/04/21 22:45 03/05/21 15:11 Multi-Ingredient Ointment (Analgesic [place]) 1 abby PRN QID PRN TP MUSCLE PAIN 01/04/21 22:45 Al Hydroxide/Mg Hydroxide (Mylanta Plus Xs) 15 ml PRN AFTMEALHC PRN PO DYSPEPSIA 01/04/21 22:45 Magnesium Hydroxide (Milk Of Magnesia) 2,400 mg PRN QHS PRN PO CONSTIPATION 01/04/21 22:45 Potassium Chloride (Klor-Con) 40 meq 1X ONCE PO 01/05/21 15:45 01/05/21 15:49 DC 01/05/21 17:29 Potassium Chloride (Klor-Con) 20 meq BID PO 01/05/21 21:00 03/07/21 19:51 Sertraline HCl (Zoloft) 25 mg DAILY PO 01/07/21 09:00 01/09/21 18:00 DC 01/09/21 08:24 Sertraline HCl (Zoloft) 50 mg DAILY PO 01/10/21 09:00 01/14/21 11:10 DC 01/14/21 08:11 Melatonin (Melatonin) 3 mg HS PO 01/08/21 21:00 03/07/21 19:52 Trazodone HCl (Desyrel) 50 mg PRN QHS PRN PO INSOMNIA MRX1 01/08/21 17:30 03/07/21 19:52 Risperidone (RisperDAL) 1 mg QHS PO 01/08/21 21:00 01/08/21 19:47 DC Olanzapine (ZyPREXA ZYDIS) 2.5 mg PRN Q2HRS PRN PO PSYCHOSIS 01/08/21 19:45 03/07/21 20:33 Risperidone (RisperDAL) 0.5 mg HS PO 01/08/21 21:00 01/08/21 19:58 DC Risperidone (RisperDAL) 0.25 mg HS PO 01/08/21 20:00 01/08/21 20:01 DC Risperidone (RisperDAL) 0.25 mg HS PO 01/08/21 21:00 01/14/21 11:11 DC 01/13/21 20:11 Lorazepam (Ativan Intensol) 0.25 mg PRN Q6HRS PRN PO ANXIETY / AGITATION 01/09/21 17:15 01/09/21 17:46 DC Lorazepam (Ativan Intensol) 0.25 mg PRN TID PRN PO ANXIETY / AGITATION 01/09/21 17:45 03/04/21 16:06 Trazodone HCl (Desyrel) 50 mg 1445 ONCE PO 01/11/21 14:45 01/11/21 14:54 DC Mirtazapine (Remeron) 7.5 mg QHS PO 01/11/21 21:00 01/18/21 19:49 DC 01/17/21 19:38 Sertraline HCl (Zoloft) 75 mg DAILY PO 01/15/21 09:00 01/19/21 17:19 DC 01/19/21 08:14 Risperidone (RisperDAL) 0.5 mg QHS PO 01/14/21 21:00 03/07/21 19:52 Mirtazapine (Remeron Anum-Tab) 15 mg QHS PO 01/18/21 21:00 03/07/21 19:52 Sertraline HCl (Zoloft) 100 mg DAILY PO 01/20/21 09:00 03/07/21 08:24 Divalproex Sodium (Depakote Sprinkles) 125 mg DAILY PO 01/22/21 09:00 03/07/21 08:23 Divalproex Sodium (Depakote Sprinkles) 125 mg DAILYWSUP PO 01/21/21 17:00 03/07/21 17:17 Risperidone (RisperDAL) 0.5 mg DAILY PO 01/23/21 09:00 03/07/21 08:24 Nitroglycerin (Nitrostat) 0.4 mg PRN Q5MIN PRN SL CHEST PAIN 03/02/21 06:00 I have reviewed the current psychotropics carefully including drug interactions. Risk benefit ratio favors no change other than as noted in my dictated progress note. 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
[2021-03-08 08:02] VITALS: BP 157/63
[2021-03-08] MEDS: SERTRALINE 100 MG TABLET. PO SCH (08:02)
[2021-03-08] MEDS: METOPROLOL TART IMMED RELEASE 50 MG TABLET PO SCH (08:02)
[2021-03-08] MEDS: FUROSEMIDE 40 MG TABLET PO SCH (08:03)
[2021-03-08] MEDS: DIVALPROEX 125 MG CAP.SPRINK PO SCH (08:03)
[2021-03-08] MEDS: POLYETHYLENE GLYCOL 3350 17 GM PACKET. PO SCH (08:03)
[2021-03-08] MEDS: risperiDONE 0.5 MG TABLET. PO SCH (08:03)
[2021-03-08] MEDS: POTASSIUM CHLORIDE 20 MEQ TABLET.ER. PO SCH (08:03)
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
--- NOTE | 2021-03-08 22:57 | PDOC ---
Exam Note: Devang Note: Please also refer to the separate dictated note~for this date of service dictated separately.~Patient seen individually. Discussed the patient with Nursing staff reviewed the chart.~Reviewed interim history and current functioning. Reviewed vital signs,~Labs/ Radiology~and current medications noted below. Continue current treatment with the changes noted in the dictated addendum note Assessment: Vital Signs/I&O: Vital Signs Date Time Temp Pulse Resp B/P (MAP) Pulse Ox O2 Delivery O2 Flow Rate FiO2 03/08/21 08:02 73 157/63 03/08/21 05:56 97.0 20 92 03/04/21 16:04 Room Air I & O 03/07/21 03/07/21 03/08/21 15:00 23:00 07:00 Intake Total 960 ml 480 ml 120 ml Balance 960 ml 480 ml 120 ml Current Medications: Meds: Current Medications Medications (Trade) Dose Ordered Sig/Marguerite Route PRN Reason Start Time Stop Time Status Last Admin Dose Admin Potassium Chloride (Klor-Con) 40 meq 1X ONCE PO 01/04/21 19:00 01/04/21 19:07 DC 01/04/21 19:16 Acetaminophen (Tylenol) 500 mg PRN Q12HR PRN PO PAIN 01/04/21 23:00 Cancel Atorvastatin Calcium (Lipitor) 10 mg QHS PO 01/05/21 21:00 03/08/21 09:52 DC 03/07/21 19:52 Furosemide (Lasix) 40 mg DAILY PO 01/05/21 09:00 03/08/21 09:52 DC 03/08/21 08:03 Metoprolol Tartrate (Lopressor) 50 mg BID PO 01/05/21 09:00 03/08/21 09:52 DC 03/08/21 08:02 Potassium Chloride (Klor-Con) 20 meq DAILY PO 01/05/21 09:00 01/11/21 15:00 DC 01/11/21 08:57 Polyethylene Glycol (miraLAX) 17 gm DAILY PO 01/05/21 09:00 03/08/21 09:52 DC 03/08/21 08:03 Lorazepam (Ativan) 1 mg PRN Q4HRS PRN PO ANXIETY / AGITATION 01/04/21 23:00 01/09/21 10:42 DC 01/07/21 23:07 Lorazepam (Ativan Intensol) 1 mg PRN Q6HRS PRN PO ANXIETY / AGITATION 01/04/21 23:00 01/09/21 17:03 DC Risperidone (RisperDAL) 0.25 mg DAILY PO 01/05/21 09:00 01/22/21 17:34 DC 01/22/21 08:35 Risperidone (RisperDAL) 0.5 mg QHS PO 01/05/21 21:00 01/08/21 17:27 DC 01/07/21 20:28 Melatonin (Melatonin) 6 mg HS PO 01/05/21 21:00 01/08/21 17:27 DC 01/07/21 20:28 Acetaminophen (Tylenol) 650 mg PRN Q6HRS PRN PO MILD PAIN / TEMP > 100.3'F 01/04/21 22:45 03/08/21 09:52 DC 03/05/21 15:11 Multi-Ingredient Ointment (Analgesic [place]) 1 abby PRN QID PRN TP MUSCLE PAIN 01/04/21 22:45 03/08/21 09:52 DC Al Hydroxide/Mg Hydroxide (Mylanta Plus Xs) 15 ml PRN AFTMEALHC PRN PO DYSPEPSIA 01/04/21 22:45 03/08/21 09:52 DC Magnesium Hydroxide (Milk Of Magnesia) 2,400 mg PRN QHS PRN PO CONSTIPATION 01/04/21 22:45 03/08/21 09:52 DC Potassium Chloride (Klor-Con) 40 meq 1X ONCE PO 01/05/21 15:45 01/05/21 15:49 DC 01/05/21 17:29 Potassium Chloride (Klor-Con) 20 meq BID PO 01/05/21 21:00 03/08/21 09:52 DC 03/08/21 08:03 Sertraline HCl (Zoloft) 25 mg DAILY PO 01/07/21 09:00 01/09/21 18:00 DC 01/09/21 08:24 Sertraline HCl (Zoloft) 50 mg DAILY PO 01/10/21 09:00 01/14/21 11:10 DC 01/14/21 08:11 Melatonin (Melatonin) 3 mg HS PO 01/08/21 21:00 03/08/21 09:52 DC 03/07/21 19:52 Trazodone HCl (Desyrel) 50 mg PRN QHS PRN PO INSOMNIA MRX1 01/08/21 17:30 03/08/21 09:52 DC 03/07/21 19:52 Risperidone (RisperDAL) 1 mg QHS PO 01/08/21 21:00 01/08/21 19:47 DC Olanzapine (ZyPREXA ZYDIS) 2.5 mg PRN Q2HRS PRN PO PSYCHOSIS 01/08/21 19:45 03/08/21 09:52 DC 03/07/21 20:33 Risperidone (RisperDAL) 0.5 mg HS PO 01/08/21 21:00 01/08/21 19:58 DC Risperidone (RisperDAL) 0.25 mg HS PO 01/08/21 20:00 01/08/21 20:01 DC Risperidone (RisperDAL) 0.25 mg HS PO 01/08/21 21:00 01/14/21 11:11 DC 01/13/21 20:11 Lorazepam (Ativan Intensol) 0.25 mg PRN Q6HRS PRN PO ANXIETY / AGITATION 01/09/21 17:15 01/09/21 17:46 DC Lorazepam (Ativan Intensol) 0.25 mg PRN TID PRN PO ANXIETY / AGITATION 01/09/21 17:45 03/08/21 09:52 DC 03/04/21 16:06 Trazodone HCl (Desyrel) 50 mg 1445 ONCE PO 01/11/21 14:45 01/11/21 14:54 DC Mirtazapine (Remeron) 7.5 mg QHS PO 01/11/21 21:00 01/18/21 19:49 DC 01/17/21 19:38 Sertraline HCl (Zoloft) 75 mg DAILY PO 01/15/21 09:00 01/19/21 17:19 DC 01/19/21 08:14 Risperidone (RisperDAL) 0.5 mg QHS PO 01/14/21 21:00 03/08/21 09:52 DC 03/07/21 19:52 Mirtazapine (Remeron Anum-Tab) 15 mg QHS PO 01/18/21 21:00 03/08/21 09:52 DC 03/07/21 19:52 Sertraline HCl (Zoloft) 100 mg DAILY PO 01/20/21 09:00 03/08/21 09:52 DC 03/08/21 08:02 Divalproex Sodium (Depakote Sprinkles) 125 mg DAILY PO 01/22/21 09:00 03/08/21 09:52 DC 03/08/21 08:03 Divalproex Sodium (Depakote Sprinkles) 125 mg DAILYWSUP PO 01/21/21 17:00 03/08/21 09:52 DC 03/07/21 17:17 Risperidone (RisperDAL) 0.5 mg DAILY PO 01/23/21 09:00 03/08/21 09:52 DC 03/08/21 08:03 Nitroglycerin (Nitrostat) 0.4 mg PRN Q5MIN PRN SL CHEST PAIN 03/02/21 06:00 03/08/21 09:52 DC I have reviewed the current psychotropics carefully including drug interactions. Risk benefit ratio favors no change other than as noted in my dictated progress note. 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
== END 2021-03-08 09:30 | DRG 57 ==
LOC: ER 17:31 → GEROPSY 22:18
PROVIDERS: ADMIT Psychiatry & Neurology Psychiatry; ATTEND Psychiatry & Neurology Psychiatry
DX: G30.9 Alzheimer's disease, unspecified (principal); F02.81 Dementia in other diseases classified elsewhere, unspecified severity, with behavioral disturbance; I11.0 Hypertensive heart disease with heart failure; F01.51 Vascular dementia, unspecified severity, with behavioral disturbance; I50.9 Heart failure, unspecified; E78.00 Pure hypercholesterolemia, unspecified; J44.9 Chronic obstructive pulmonary disease, unspecified; Z66 Do not resuscitate; F63.9 Impulse disorder, unspecified; F60.0 Paranoid personality disorder; F41.9 Anxiety disorder, unspecified; F32.9 Major depressive disorder, single episode, unspecified; I48.91 Unspecified atrial fibrillation; E78.5 Hyperlipidemia, unspecified; D64.9 Anemia, unspecified; E87.6 Hypokalemia; Z20.822 Contact with and (suspected) exposure to COVID-19; Z91.14 Patient's other noncompliance with medication regimen; Z79.899 Other long term (current) drug therapy; Z88.1 Allergy status to other antibiotic agents; Z88.0 Allergy status to penicillin
CPT/HCPCS: 36415; 70450; 70486; 71045; 72125; 80053; 80061; 80164; 81001; 82306; 82607; 83036; 83540; 83550; 83735; 83880; 84436; 84443; 84480; 84484; 85025; 85379; 86592; 93005; U0003; U0005; 97110; 97112; 97116; 97530; 97535; 99285-25